=== PATIENT | female | born 1940 | race Caucasian/White ===

== ENCOUNTER 2022-12-24 08:54 | Outpatient (OUT) | payer MEDICARE, OTHER, SELFPAY ==
--- NOTE | 2022-12-24 09:01 | MM_ITS ---
Patient: NIMCO PRESTON Exam Date: 12/24/2022 : 1940 Gender:F Ordering : MRS. MARICHUY MICHEL . Admission #: [id number] Family : Order #: [id number] CLICK HERE TO VIEW EXAM RADIOLOGY REPORT PROCEDURE: MM TOMOSYNTHESIS SCREENING BI COMPARISON: MG MAMM SCREEN 3D JAMES CAD, 12/19/2021. MG MAMM SCREEN 3D JAMES CAD, 09/17/2020. INDICATIONS: Screening Calculator Name NCI Breast Cancer Risk Assessment Tool 5 Year Breast Cancer Risk 1.50% Lifetime Breast Cancer Risk 2.30% Personal Breast Cancer No Personal Ovarian Cancer No Treatments None Family Cancers Cousin-paternal with breast cancer at age 68; Father with colon cancer at age 67. LOCATION: [facility] BREAST COMPOSITION: Extremely dense, which lowers the sensitivity of mammography. FINDINGS: DIAGNOSTIC CATEGORY 2--BENIGN FINDING. NO CHANGE FROM COMPARISON. Scattered benign-appearing nodules are present. Scattered benign-appearing calcifications are present. Scattered benign-appearing lymph nodes are present. RIGHT BREAST: No significant suspicious finding. LEFT BREAST: No significant suspicious finding. RECOMMENDATIONS: ROUTINE MAMMOGRAM AND CLINICAL EVALUATION IN 12 MONTHS. PLEASE NOTE: A NORMAL MAMMOGRAM DOES NOT EXCLUDE THE POSSIBILITY OF BREAST CANCER. A CLINICALLY SUSPICIOUS PALPABLE LUMP SHOULD BE BIOPSIED. Dictated by: Oneil Condon MD on 12/24/2022 at 11:56 Approved by: Oneil Condon MD on 12/24/2022 at 11:57
--- NOTE | 2022-12-24 09:01 | XR_ITS ---
[address] [address] Patient Name: NIMCO PRESTON MRN: [id number] date: 1940 Sex: F Assigned Patient Location: [facility] Current Patient Location: [facility] Accession/Order Number: [id number] Exam Date: 12/24/2022 10:00 Report Date: 12/24/2022 12:31 At the request of: MARICHUY MICHEL Procedure: XR DEXA axial skeleton EXAM: XR DEXA axial skeleton HISTORY: Primary Ovarian Failure E28.39 COMPARISON: 04/27/2016, 04/17/2013, 04/10/2010 and 04/07/2007. TECHNIQUE: Routine DEXA lumbar spine and left hip. FINDINGS: L1-L4: 1. Bone mineral density 1.184 g/sq cm with a T score of 0.0 2. Percent change versus previous 8.6% (statistically significant change) Left femoral neck: 1. Bone mineral density 0.840 g/sq cm with a T score of -1.4 2. Percent change versus previous 7.5% (statistically significant change) Left hip total: 1. Bone mineral density 0.835 g/sq cm with a T score of -1.4 2. Percent change versus previous 3.0% (no statistically significant change) XR/XR DEXA axial skeleton IMPRESSION: Osteopenia Electronically authenticated by: KARINA PRECIADO Date: 12/24/2022 12:31
== END 2022-12-24 08:55 | disposition home or self-care (01) ==
LOC: MAMMO 08:55
PROVIDERS: PCP Nurse Practitioner; Visit Provider Nurse Practitioner
DX: E28.39 Other primary ovarian failure (principal); Z12.31 Encounter for screening mammogram for malignant neoplasm of breast; Z80.3 Family history of malignant neoplasm of breast; Z80.0 Family history of malignant neoplasm of digestive organs; M85.80 Other specified disorders of bone density and structure, unspecified site
CPT/HCPCS: 77063; 77067; 77080

== ENCOUNTER 2023-12-07 12:42 | Outpatient (OUT) | payer MEDICARE, OTHER, SELFPAY ==
--- NOTE | 2023-12-07 12:53 | XR_ITS ---
The [address] [address] Patient Name: NIMCO PRESTON MRN: [id number] date: 1940 Sex: F Assigned Patient Location: [place] Current Patient Location: [place] Accession/Order Number: [id number] Exam Date: 12/07/2023 13:18 Report Date: 12/07/2023 13:37 At the request of: MARIHCUY MICHEL Procedure: XR chest 2V EXAM: XR chest 2V HISTORY: chest pain, shortness of breath COMPARISON: 12/03/2021 TECHNIQUE: Upright PA and lateral chest x-ray FINDINGS: The heart is enlarged with mild prominence of the central pulmonary vasculature. Slight prominence of interstitial markings are seen throughout the lungs which appear chronic in nature. A calcified granuloma seen in the left mid lung laterally. No acute infiltrate, effusion or pneumothorax is identified. Degenerative changes are seen in the spine. XR/XR chest 2V IMPRESSION: Mild cardiac enlargement without overt cardiac decompensation. Mild chronic changes are seen throughout the lungs. There is no evidence of an acute infiltrate. The overall appearance has not changed significantly. Electronically authenticated by: KARINA BRYANT Date: 12/07/2023 13:37
--- NOTE | 2023-12-07 12:53 | US_ITS ---
[address] [address] Patient Name: NIMCO PRESTON MRN: [id number] date: 1940 Sex: F Assigned Patient Location: Current Patient Location: [place] Accession/Order Number: [id number] Exam Date: 12/07/2023 13:00 Report Date: 12/07/2023 14:06 At the request of: MARICHUY MICHEL Procedure: US carotid duplex BI DUPLEX ULTRASOUND EXAMINATION OF THE CAROTID ARTERIES. COMPARISON: None. HISTORY / INDICATIONS: Shortness of breath. Left-sided chest pain. TECHNIQUE: Bilateral common carotid arteries, extracranial internal and external carotid arteries are evaluated with london-scale imaging, color Doppler, and spectral analysis according to a standard protocol. ICA-CCA ratios are calculated with sales representative printing paper peak-systolic velocities and recorded. Vertebral arteries are evaluated in one segment to evaluate for patency and character of flow. Comparison with previous evaluation is performed when available. Unless otherwise specified, all velocities are measured in cm/sec. Carotid stenosis is reported according to validated velocity parameters, similar to NASCET criteria. FINDINGS: Right Carotid: No significant plaque was noted. Velocity measurements as follows: Internal Carotid Artery 63/14, 70/14, and 80/14. ICA to CCA ratio: 1.0. Left Carotid: No significant plaque was noted. Velocity measurements as follows: Internal Carotid Artery 65/13, 113/15, and 79/17. ICA to CCA ratio: 1.4. Antegrade flow was seen in both vertebral arteries. 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 CONCLUSION: 1. Less than 50% stenosis of the right ICA. 2. Less than 50% stenosis of the left ICA. 3. Vertebral arteries are patent and demonstrate antegrade flow. Electronically authenticated by: Cee PÉREZ Date: 12/07/2023 14:06
== END 2023-12-07 12:43 | disposition home or self-care (01) ==
LOC: US 12:43
PROVIDERS: PCP Nurse Practitioner; Visit Provider Nurse Practitioner
DX: R06.02 Shortness of breath (principal); R07.89 Other chest pain; R53.83 Other fatigue; M54.2 Cervicalgia; R42 Dizziness and giddiness
CPT/HCPCS: 71046; 93880

== ENCOUNTER 2023-12-15 19:00 | Emergency (ER) | payer MEDICARE, OTHER, SELFPAY ==
[2023-12-15 19:09] VITALS: BP 182/72; PULSE 77; TEMP 36.7; O2SAT 97; BMI 28.2
--- OUTSIDE RECORDS SUMMARY | 2023-12-15 19:09 | XMS_ITS | CCD ---
Author Organization [facility] Care Team Providers Care Hairspring Adjuster Name Role Phone TANO ., DR MAGO Oh Consulting Unavailable FREEDMAN ., DR MAGO Oh Attending Unavailable FREEDMAN ., DR MAGO Oh Admitting Unavailable FREEDMAN ., DR MAGO Oh Primary Care Unavailable JUAQUIN, DR BERNARD Lopez Consulting Unavailable FREEDMAN ., DR MAGO hO Admitting Unavailable FREEDMAN ., DR MAGO Oh Primary Care Unavailable FREEDMAN ., DR MAGO Oh Attending Unavailable ROZINA, DR ORVILLE Beck Admitting Unavailable ROZINA, DR ORVILLE Beck Consulting Unavailable FREEDMAN ., DR MAGO Oh Primary Care Unavailable ROZINA, DR ORVILLE Beck Attending Unavailable KENY LIZ Consulting Unavailable NILL ., DR NEWTON Attending Unavailable NILL ., DR NEWTON Admitting Unavailable NILL ., DR NEWTON Consulting Unavailable FREEDMAN ., DR MAGO Oh Primary Care Unavailable ALLAN LEVI Consulting Unavailable RONEY WATKINS Consulting Unavailable FREEDMAN ., DR MAGO Oh Primary Care Unavailable NILL ., DR NEWTON Attending Unavailable NILL ., DR NEWTON Admitting Unavailable NILL ., DR NEWTON Consulting Unavailable AGUBOSIM, AWAIS Consulting Unavailable MAMIE ÁLVAREZ Consulting Unavailable NILL ., DR NEWTON Admitting Unavailable NILL ., DR NEWTON Attending Unavailable FREEDMAN ., DR MAGO Oh Primary Care Unavailable FREEDMAN ., DR MAGO Oh Attending Unavailable FREEDMAN ., DR MAGO Oh Primary Care Unavailable FREEDMAN ., DR MAGO Oh Consulting Unavailable FREEDMAN ., DR MAGO Oh Admitting Unavailable FREEDMAN ., DR MAGO Oh Consulting Unavailable FREEDMAN ., DR MAGO Oh Attending Unavailable FREEDMAN ., DR MAGO Oh Primary Care Unavailable FREEDMAN ., DR MAOG hO Admitting Unavailable JUAQUIN, DR BERNARD Lopez Consulting Unavailable FREEDMAN ., DR MAGO Oh Consulting Unavailable FREEDMAN ., DR MAGO Oh Attending Unavailable FREEDMAN ., DR MAGO Oh Admitting Unavailable FREEDMAN ., DR MAGO Oh Primary Care Unavailable FREEDMAN ., DR MAGO Oh Consulting Unavailable FREEDMAN ., DR MAGO Oh Attending Unavailable FREEDMAN ., DR MAGO Oh Admitting Unavailable TANO ., DR MAGO Oh Primary Care Unavailable Linda, Sabina L Primary Care Physician Tano EDEN, Mago Self Primary Care Unavaildillon Bojorquez MD, Zheng Thompson Attending Rosa Isela Freedman MD, Mago Self Primary Care Unavaildillon Bojorquez MD, Zheng Thompson Attending Rosa Isela HANDY, CAPO H Attending Unavailable HANDY, CAPO H Attending Unavailable HANDY, CAPO H Attending Unavailable HANDY, CAPO H Attending Unavailable Linda, WOOD CREW SUPERVISOR Sabina L Attending Unavailable Linda, WOOD CREW SUPERVISOR Sabina L Attending Unavailable Linda, WOOD CREW SUPERVISOR Sabina L Attending Unavailable Linda, WOOD CREW SUPERVISOR Sabina L Admitting Unavailable Linda, WOOD CREW SUPERVISOR Sabina L Attending Unavailable Linda, WOOD CREW SUPERVISOR Sabina L Admitting Unavailable Linda, WOOD CREW SUPERVISOR Sabina L Attending Unavailable Linda, WOOD CREW SUPERVISOR Sabina L Attending Unavailable Linda, WOOD CREW SUPERVISOR Sabina L Attending Unavailable Linda, WOOD CREW SUPERVISOR Sabina L Attending Unavailable Linda, WOOD CREW SUPERVISOR Sabina L Attending Unavailable Linda, WOOD CREW SUPERVISOR Sabina L Attending Unavailable Linda, WOOD CREW SUPERVISOR Sabina L Attending Unavailable Linda, WOOD CREW SUPERVISOR Sabina L Attending Unavailable Linda, WOOD CREW SUPERVISOR Sabina L Attending Unavailable Linda, WOOD CREW SUPERVISOR Sabina L Attending Unavailable Allergies Allergy Classification Reported Allergen(s) Allergy Type Date of Onset Reaction(s) Facility (2 sources) Amitriptyline; Translations: [amitriptyline] Drug Allergy [facility] (1 source) Cephalexin Drug Allergy [facility] (2 sources) Amitriptyline; Translations: [amitriptyline] Drug Allergy Unknown (qualifier value) General Surgery [place] (4 sources) Cefuroxime; Translations: [cefuroxime] Drug Allergy Syncope and collapse (disorder), Itching (finding) [facility] (2 sources) No Known Medication Allergies; Translations: [No Known Medication Allergies] Propensity to adverse reactions to drug (disorder) [facility] Repository Medications Current Medications Medication Drug Class(es) Dates Sig (Normalized) Sig (Original) acetaminophen 325 mg / butalbital 50 mg / caffeine 40 mg oral tablet (1 source) Barbiturate, Central Nervous System Stimulant, Methylxanthine Start: 03-16-2023 take 1 tablet by mouth every four hours APAP/butalbital/c affeine 325 mg-50 mg-40 mg Tab 1 tab(s), Oral, q4hr Headache, 30 tab(s), Refill(s) 0, [facility] #[id number], 166, cm, 03/16/23 9:10:00 EST, Height/Length Dosing, 85.6, kg, 03/16/23 9:10:00 EST, Weight Dosing Start Date: 03/16/23 Status: Ordered Albuterol (2 sources) beta2-Adrenergic Agonist Start: 12-01-2022 albuterol NEB, q4hr, PRN Allergy symptoms, Refills(s) 0 Start Date: 12/01/22 Status: Ordered alendronic acid 70 mg oral tablet (2 sources) Bisphosphonate Start: 08-24-2023 alendronate 70 mg Tab 70 mg = 1 tab(s), Oral, q7day, # 12 tab(s), Refills(s) 0, Pharmacy: [facility]pharm[facility] #[id number], 166, cm, 08/24/23 8:56:00 EDT, Height/Length Dosing, 84, kg, 08/24/23 8:56:00 EDT, Weight Dosing Start Date: 08/24/23 Status: Ordered Start: 04-29-2020 take 1 tablet by eric th every week alendronate 70 mg Tab 70 mg = 1 tab(s), Oral, qWeek, Refills(s) 0, Other (see comment) Start Date: 04/29/20 Status: Ordered amoxicillin 500 mg oral capsule (1 source) Penicillin-class Antibacterial Start: 08-24-2023 amoxicillin 500 mg Cap See Instructions, TAKE 4 CAPSULES BY MOUTH 1/2 HOUR BEFORE PROCESURE AND 2 CAPSULES 4 HOURS AFTER, # 6 caplet(s), Refills(s) 1, Pharmacy: [facility] #[id number], 166, cm, 08/24/23 8:56:00 EDT, Height/Length Dosing, 84, kg, 08/24/23 8:56:00 EDT, Weight Dosing Start Date: 08/24/23 Status: Ordered calcium carbonate 1500 mg oral tablet (2 sources) Start: 04-29-2020 take 1 tablet by mouth once daily calcium (as carbonate) 600 mg oral tablet 600 mg = 1 tab(s), Oral, Daily, Prophylaxis Start Date: 04/29/20 Status: Ordered Celebrate Multivitamin oral capsule (2 sources) Start: 04-29-2020 take 1 capsule by mouth once daily Celebrate Multivitamin oral capsule 1 cap(s), Oral, Daily, Prophylaxis Start Date: 04/29/20 Status: Ordered colestipol hydrochloride 1000 mg oral tablet (2 sources) Bile Acid Sequestrant Start: 04-27-2023 take 1 tablet by mouth once daily Colestid 1 g Tab 1 gm = 1 tab(s), Oral, Daily, # 90 tab(s), Refills(s) 1, Pharmacy: [facility] #[id number], 166, cm, 03/16/23 9:10:00 EST, Height/Length Dosing, 85.6, kg, 03/16/23 9:10:00 EST, Weight Dosing Start Date: 04/27/23 Status: Ordered Start: 04-07-2021 take 1 tablet by [facility] once daily in the morning Colestid 1 g oral tablet 1 gm = 1 tab(s), Oral, qAM, Refills(s) 0 Start Date: 04/07/21 Status: Ordered hydroCHLOROthiazide 12.5 mg oral capsule (2 sources) Thiazide Diuretic Start: 02-26-2023 take 1 capsule by mouth once daily hydrochlorothiazide 12.5 mg Cap 12.5 mg = 1 cap(s), Oral, Daily, # 90 cap(s), Refills(s) 3, Pharmacy: [facility] #[id number], 166, cm, 02/02/23 8:45:00 EDT, Height/Length Dosing, 85, kg, 02/02/23 8:45:00 EDT, Weight Dosing Start Date: 02/26/23 Status: Ordered Start: 02-02-2023 take 1 capsule by [facility] once daily hydrochlorothiazide 12.5 mg Cap 12.5 mg = 1 cap(s), Oral, Daily, # 30 cap(s), Refills(s) 2, Pharmacy: [facility] #[id number], 166, cm, 02/02/23 8:45:00 EDT, Height/Length Dosing, 85, kg, 02/02/23 8:45:00 EDT, Weight Dosing Start Date: 02/02/23 Status: Ordered losartan potassium 25 mg oral tablet (2 sources) Angiotensin 2 Receptor Peter Start: 05-25-2023 take 1 tablet by mouth twice daily losartan 25 mg Tab 25 mg = 1 tab(s), Oral, BID, # 180 tab(s), Refills(s) 3, Pharmacy: [facility] #[id number], 166, cm, 03/16/23 9:10:00 EST, Height/Length Dosing, 85.6, kg, 03/16/23 9:10:00 EST, Weight Dosing Start Date: 05/25/23 Status: Ordered Start: 02-02-2023 End: 05-03-2023 take 1 tablet by mouth twice daily losartan 25 mg Tab 25 mg = 1 tab(s), Oral, BID, X 30 day(s), # 60 tab(s), Refills(s) 2, Pharmacy: [facility] #[id number], 166, cm, 02/02/23 8:45:00 EDT, Height/Length Dosing, 85, kg, 02/02/23 8:45:00 EDT, Weight Dosing Start Date: 02/02/23 Stop Date: 05/03/23 Status: Ordered [facility] Medication (1 source) Start: 12-01-2022 Misc Medicatio n Daily Start Date: 12/01/22 Status: Ordered Nature's Bounty Red Krill Oil (2 sources) Start: 12-01-2022 take 500 mg by mouth once daily Nature's B[employer] Red Krill Oil 500 mg, Oral, Daily, Refill(s) 0 Start Date: 12/01/22 Status: Ordered Vitamin D3 (2 sources) Start: 04-29-2020 take 50 ug by mouth once daily Vitamin D3 50 mcg, Oral, Daily, Prophylaxis Start Date: 04/29/20 Status: Ordered Completed/Discontinued Medications Medication Drug Class(es) Dates Sig (Normalized) Sig (Original) microencapsulated potassium chloride 20 meq extended release oral tablet (3 sources) Start: 02-02-2023 take 1 tablet by mouth once daily Klor-Con M20 oral tablet, extended release 20 mEq = 1 tab(s), Oral, Daily, # 90 tab(s), Refills(s) 1, Pharmacy: [facility] #[id number], 166, cm, 08/24/23 8:56:00 EDT, Height/Length Dosing, 84, kg, 08/24/23 8:56:00 EDT, Weight Dosing Start Date: 08/24/23 Status: Ordered Problems Active Problems Problem Classification Problem Date Documented Da te Episodic/Chronic Asthma (3 sources) Unspecified asthma, uncomplicated; Translations: [Asthma] Onset: 09-30-2021 04-07-2021 Chronic Conditions associated with dizziness or vertigo (4 sources) Benign paroxysmal vertigo, unspecified ear; Translations: [BENIGN PAROXYSMAL VERTIGO UNS EAR] Onset: 06-05-2022 Episodic Diverticulosis and diverticulitis (3 sources) Diverticulosis of large intestine without perforation or abscess without bleeding; Translations: [Diverticular disease] Onset: 09-30-2021 04-07-2021 Chronic Esophageal disorders (3 sources) Gastro-esophageal reflux disease without esophagitis; Translations: [Gastroesophageal reflux disease] Onset: 09-30-2021 04-07-2021 Chronic Essential hypertension (3 sources) Essential (primary) hypertension; Translations: [Hypertensive disorder] Onset: 12-15-2021 04-07-2021 Chronic Headache; including migraine (2 sources) Migraine 04-07-2021 Chronic Malaise and fatigue (6 sources) Other fatigue; Translations: [Fatigue] Onset: 12-12-2021 Episodic Nutritional deficiencies (3 sources) Vitamin D deficiency, unspecified; Translations: [Vitamin D deficiency] Onset: 09-30-2021 04-07-2021 Chronic Osteoporosis (3 sources) Age-related osteoporosis without current pathological fracture; Translations: [Osteoporosis] Onset: 09-30-2021 04-07-2021 Chronic Other and unspecified benign neoplasm (2 sources) History of polyp of colon 04-08-2021 Episodic Other connective tissue disease (1 source) Presence of right artificial knee joint; Translations: [PRESENCE RT ARTIFICIAL KNEE JOINT] Onset: 09-30-2021 Chronic Other connective tissue disease (1 source) Cramp in lower limb 08-24-2023 Episodic Other ear and sense organ disorders (1 source) Impacted cerumen 03-16-2023 Episodic Other gastrointestinal disorders (1 source) Irritable bowel syndrome without diarrhea; Translations: [IRRITABLE BOWEL SYND W/O DIARRHEA] Onset: 08-21-2021 Chronic Other gastrointestinal disorders (2 sources) Alteration in bowel elimination 07-01-2021 Episodic Other nutritional; endocrine; and metabolic disorders (2 sources) Body mass index 30+ - obesity 07-01-2021 Chronic Other upper respiratory disease (2 sources) Seasonal allergic rhinitis 04-07-2021 Chronic Unclassified (3 sources) CONTACT W/AND (SUSP) EXPOS COVID-19; Translations: [CONTACT W/AND (SUSP) EXPOS COVID-19] Onset: 12-03-2021 Urinary tract infections (2 sources) Chronic urinary tract infection 04-07-2021 Episodic Past or Other Problems Problem Classification Problem Date Documented Da te Episodic/Chronic Anal and rectal conditions (1 source) Rectal polyp; Translations: [RECTAL POLYP] Onset: 09-30-2021 Episodic E Codes: Adverse effects of medical drugs (1 source) Adverse effect of cephalosporins and other beta-lactam antibiotics, initial encounter; Translations: [ADVERS EFF CEPHALOSPOR OTH KYLE INIT] Onset: 12-05-2021 Episodic Genitourinary symptoms and ill-defined conditions (1 source) Personal history of urinary (tract) infections; Translations: [PERS HX URINARY TRACT INFECTIONS] Onset: 09-30-2021 Episodic Other aftercare (1 source) Other meterman (current) drug therapy; Translations: [OTH FOOTBALL PAD REPAIRER CURRENT DRUG THERAPY] Onset: 12-05-2021 Episodic Other and unspecified benign neoplasm (4 sources) Personal history of colonic polyps; Translations: [PERSONAL HISTORY OF COLONIC POLYPS] Onset: 09-24-2021 Episodic Other connective tissue disease (4 sources) Pain in left lower leg; Translations: [PAIN IN LEFT LOWER LEG] Onset: 10-17-2021 Episodic Other gastrointestinal disorders (4 sources) Change in bowel habit; Translations: [CHANGE IN BOWEL HABIT] Onset: 08-20-2021 Episodic Other inflammatory condition of skin (1 source) Pruritus, unspecified; Translations: [PRURITUS UNSPECIFIED] Onset: 12-05-2021 Episodic Other lower respiratory disease (4 sources) Shortness of breath; Translations: [SHORTNESS OF BREATH] Onset: 12-24-2021 Episodic Other screening for suspected conditions (not mental disorders or infectious disease) (4 sources) Encounter for screening mammogram for malignant neoplasm of breast; Translations: [ENC SCR MAMMO MALIG NEOPLASM BREAST] Onset: 12-19-2021 Episodic Other skin disorders (1 source) Localized swelling, mass and lump, left lower limb; Translations: [LOC SWELL MASS LUMP LT LOWER LIMB] Onset: 10-24-2021 Episodic Residual codes; unclassified (1 source) Family history of malignant neoplasm of digestive organs; Translations: [FAM HX MALIG NEOPLASM DIGESTIV ORGN] Onset: 12-23-2021 Episodic Residual codes; unclassified (1 source) Family history of malignant neoplasm of breast; Translations: [FAMILY HX MALIG NEOPLASM OF BREAST] Onset: 12-23-2021 Episodic Residual codes; unclassified (1 source) Acquired absence of other specified parts of digestive tract; Translations: [ACQ ABSENCE OTH PART DIGESTV TRACT] Onset: 09-30-2021 Episodic Unclassified (1 source) CONTACT W/AND (SUSP) EXPOS COVID-19; Translations: [CONTACT W/AND (SUSP) EXPOS COVID-19] Onset: 12-02-2021 Results Test Name Value Interpretation Reference Range Facil ity Ambulatory Visit Summaryon 0 12-03-2023 Ambulatory Visit Summary Ambulatory Visit Summary NORI PRESTON :1940 Visit Date:12/02/2023 Ambulatory Visit Instructions Your Diagnosis Medicare annual wellness visit, subsequent HTN (hypertension) Asthma Migraines Osteoporosis Screening mammogram for breast cancer Obesity due to excess calories Your Care Team Attending Physician - Sabina Ruth Primary Care Physician - Sabina Ruth This Is Your Medications List APAP/butalbital/caff eine (APAP/butalbital/caf feine 325 mg-50 mg-40 mg Tab) Non-Formulary Medication (Probiotic) albuterol alendronate (alendronate 70 mg Tab) amoxicillin (amoxicillin 500 mg Cap) calcium carbonate (calcium (as carbonate) 600 mg oral tablet) cholecalciferol (Vitamin D3) colestipol (colestipol 1 g Tab) hydrochlorothiazide (hydrochlorothiazide 12.5 mg Cap) losartan (losartan 25 mg Tab) multivitamin with minerals (Celebrate Multivitamin oral capsule) Procedures Performed Cataract extraction and insertion of intraocular lens (05/14/2020), Cataract extraction and insertion of intraocular lens (04/30/2020), Colonoscopy (11/25/2016), Colonoscopy (10/11/2013), Colonoscopy (09/28/2012), Appendectomy, Arthroplasty of knee, Cervical polypectomy, Cholecystectomy, Cystoscopy, Urethral dilatation. Discharge Vitals Heart Rate (Peripheral) 60 Blood Pressure 130/70 Height 166 cm Height 65 in Weight 82.8 kg Weight 182.16 lb BMI 30.05 What to do next Scheduled Follow-Up Appointments Wednesday 9:00 AM EDT With: Sabina Ruth Where: [address] [address] 2023 10:00 AM EST With: Sabina Ruth Where: [address] [address]- [address]24 11:00 AM EDT With: Where: [address] [id number]- Medications What How Much When Why Instructions Unchanged albuterol Nebulized inhalation (aerosol) Every 4 hours as needed for Allergy symptoms Unchanged alendronate (alendronate 70 mg Tab) See instructions TAKE 1 TABLET ONCE EVERY 7 DAYS Unchanged amoxicillin (amoxicillin 500 mg Cap) See instructions TAKE 4 CAPSULES BY MOUTH 1/ 2 HOUR BEFORE PROCESURE AND 2 CAPSULES 4 HOURS AFTER Unchanged APAP/ butalbital/ caffeine (APAP/ butalbital/ caffeine 325 mg-50 mg-40 mg Tab) 1 Tablets By Mouth Every 4 hours as needed for Headache Unchanged calcium carbonate (calcium (as carbonate) 600 mg oral tablet) 1 Tablets By Mouth Every day Unchanged cholecalciferol (Vitamin D3) 50 Microgram By Mouth Every day Unchanged colestipol (colestipol 1 g Tab) See instructions TAKE 1 TABLET BY MOUTH EVERY DAY Unchanged hydrochlorothiazide (hydrochlorothiazide 12.5 mg Cap) 1 Capsules By Mouth Every day BMI 30.0-30.9,adult Non-smoker Unchanged losartan (losartan 25 mg Tab) 1 Tablets By Mouth 2 times a day BMI 31.0-31.9,adult Non-smoker Hypertension Unchanged multivitamin with minerals (Celebrate Multivitamin oral capsule) 1 Capsules By Mouth Every day Unchanged Non-Formulary Medication (Probiotic) 1 tab By Mouth Every day Allergies cefuroxime (Syncope and collapse, Itch) amitriptyline (Unknown) Problems Ongoing - Any problem that you are currently receiving treatment for. Allergic rhinitis, seasonal Asthma BMI 30.0-30.9,adult Cerumen impaction Change in bowel habits Chronic UTI Diverticulosis Fatigue GERD (gastroesophageal reflux disease) HTN (hypertension) Leg cramps Migraines Osteoporosis Personal history of colonic polyps Vitamin D deficiency Patient Survey You may receive a survey via text or e-mail asking about your office visit. Please share your experience with us by completing your survey. We appreciate your feedback and thank you for choosing us for your care. Education Materials BMI for Adults What is BMI? Body mass index (BMI) is a number that is calculated from a person's weight and height. BMI can help estimate how much of a person's weight is composed of fat. BMI does not measure body fat directly. Rather, it is an alternative to procedures that directly measure body fat, which can be difficult and expensive. BMI can help identify people who may be at higher risk for certain medical problems. What are BMI measurements used for? BMI is used as a screening tool to identify possible weight problems. It helps determine whether a person is obese, overweight, a healthy weight, or underweight. BMI is useful for: ? Identifying a weight problem that may be related to a medical condition or may increase the risk for medical problems. ? Promoting changes, such as changes in diet and exercise, to help reach a healthy weight. BMI screening can be repeated to see if these changes are working. How is BMI calculated? (more content not included)... [facility] Ambulatory Visit Summary Ambulatory Visit Summary NORI PRESTON :1940 Visit Date:12/03/2023 Ambulatory Visit Instructions Your Diagnosis Chest pain Shortness of breath Non-smoker BMI 29.0-29.9,adult Overweight (BMI 25.0-29.9) Your Care Team Attending Physician - Sabina Ruth Primary Care Physician - Sabina Ruth This Is Your Medications List APAP/butalbital/caff eine (APAP/butalbital/caf feine 325 mg-50 mg-40 mg Tab) Non-Formulary Medication (Probiotic) albuterol alendronate (alendronate 70 mg Tab) amoxicillin (amoxicillin 500 mg Cap) calcium carbonate (calcium (as carbonate) 600 mg oral tablet) cholecalciferol (Vitamin D3) colestipol (colestipol 1 g Tab) hydrochlorothiazide (hydrochlorothiazide 12.5 mg Cap) losartan (losartan 25 mg Tab) multivitamin with minerals (Celebrate Multivitamin oral capsule) potassium chloride (Klor-Con M20 oral tablet, extended release) Procedures Performed Cataract extraction and insertion of intraocular lens (05/14/2020), Cataract extraction and insertion of intraocular lens (04/30/2020), Colonoscopy (11/25/2016), Colonoscopy (10/11/2013), Colonoscopy (09/28/2012), Appendectomy, Arthroplasty of knee, Cervical polypectomy, Cholecystectomy, Cystoscopy, Urethral dilatation. Discharge Vitals Temperature (Oral) 36.8 ?C Heart Rate (Peripheral) 67 Respiratory Rate 16 Blood Pressure 132/76 Height 167.5 cm Height 66 in Weight 84 kg Weight 184.8 lb BMI 29.94 What to do next Scheduled Follow-Up Appointments Wednesday 10:00 AM EDT With: Sabina Ruth Where: [address] [address]- [address]23 10:00 AM EST With: Sabina Ruth Where: [address] [id number]- 2024 11:00 AM EDT With: Where: [address] [address]- Medications What How Much When Why Instructions Unchanged albuterol Nebulized inhalation (aerosol) Every 4 hours as needed for Allergy symptoms Unchanged alendronate (alendronate 70 mg Tab) See instructions TAKE 1 TABLET ONCE EVERY 7 DAYS Unchanged amoxicillin (amoxicillin 500 mg Cap) See instructions TAKE 4 CAPSULES BY MOUTH 1/ 2 HOUR BEFORE PROCESURE AND 2 CAPSULES 4 HOURS AFTER Unchanged APAP/ butalbital/ caffeine (APAP/ butalbital/ caffeine 325 mg-50 mg-40 mg Tab) 1 Tablets By Mouth Every 4 hours as needed for Headache Unchanged calcium carbonate (calcium (as carbonate) 600 mg oral tablet) 1 Tablets By Mouth Every day Unchanged cholecalciferol (Vitamin D3) 50 Microgram By Mouth Every day Unchanged colestipol (colestipol 1 g Tab) See instructions TAKE 1 TABLET BY MOUTH EVERY DAY Unchanged hydrochlorothiazide (hydrochlorothiazide 12.5 mg Cap) 1 Capsules By Mouth Every day BMI 30.0-30.9,adult Non-smoker Unchanged losartan (losartan 25 mg Tab) 1 Tablets By Mouth 2 times a day BMI 31.0-31.9,adult Non-smoker Hypertension Unchanged multivitamin with minerals (Celebrate Multivitamin oral capsule) 1 Capsules By Mouth Every day Unchanged Non-Formulary Medication (Probiotic) 1 tab By Mouth Every day Unchanged potassium chloride (Klor-Con M20 oral tablet, extended release) TAKE 1 TABLET BY MOUTH EVERY DAY Allergies cefuroxime (Syncope and collapse, Itch) amitriptyline (Unknown) Problems Ongoing - Any problem that you are currently receiving treatment for. Allergic rhinitis, seasonal Asthma BMI 29.0-29.9,adult BMI 30.0-30.9,adult Cerumen impaction Change in bowel habits Chest pain Chronic UTI Diverticulosis Fatigue GERD (gastroesophageal reflux disease) HTN (hypertension) Leg cramps Migraines Osteoporosis Overweight (BMI 25.0-29.9) Personal history of colonic polyps Shortness of breath Vitamin D deficiency Patient Survey You may receive a survey via text or e-mail asking about your office visit. Please share your experience with us by completing your survey. We appreciate your feedback and thank you for choosing us for your care. Normal Goel [facility] Family Medicine Office/Clini c Noteon 12-03-2023 Family Medicine Office/Clinic Note Family Medicine Office/Clinic Note Chief Complaint Subsequent Medicare Wellness Visit Review of Systems PHQ Score Initial Depression Screen Score: 0 SCORE Physical Exam Vitals & Measurements HR: 60(Peripheral) BP: 130/70 SpO2: 97% HT: 166 cm HT: 65 in WT: 82.8 kg WT: 182.16 lb BMI: 30.05 Assessment/Plan 1. Medicare annual wellness visit, subsequent (Z00.00: Encounter for general adult medical examination without abnormal findings) The patient was given a customized and personalized print out of all the current AHRQ USPSTF?s recommendations for preventative services and all current CDC recommended immunizations, relevant risk recommendations and the following patient brochures were given. Reviewed Medicare Prevention Services checklist. CDC-Falls Prevention and home safety screening reviewed. Patient denies any falls in last 12 months, voices no worry about falling. Exhibits no problems with sitting, standing or ambulation. Patient aware with keeping walk way area free of clutter to prevent tripping and/or falling. [place] Advance Directives reviewed. Documents are scanned into chart. Patient denies any problems with ADL?s and Instrumental ADL?s. Cognitive screening completed with memory and clock face drawing. No deficits noted. Patient recited 3/3 memory words without difficulty. Immunization record reviewed, discussed Shingrix vaccine with educational handout and availability.2 COVID vaccines have been administered, with 3 Boosters received. Allergies and medications reviewed and up to date. No concerns with taking medication as prescribed. Reviewed OTC medications, medication list up to date. Blood tests were reviewed: Discussed what tests need to be updated.Labs were ordered, will have completed prior to next PCP visit. Labs to be completed with [facility]. No concerns with bowel/ bladder. Colonoscopy last completed 09/24/2021, repeat 5 years. Reviewed pain symptoms : Patient denies any pain at today's visit. Patient admits to having some pain on and off over the last month in the left collar bone area. Patient reports the pain is interment. An acute appointment was made with pcp for 12/03/2023. Reviewed all outside providers that patient follows. Last visit summary notes available in chart and/or have been requested. Patient declines any signs or symptoms of depression at this time. 8 minutes spent with screening and documentation. PHQ2 screening score 0. PHQ9 3. Patient drinks alcohol monthly or less, 1-2 drinks, denies concerns. 8 minutes spent with screening and documentation. Audit score 1. Follow up scheduled with PCP, 02/24/2024 for regular follow up 12/03/2023 acute visit for pain. AWV has been scheduled, 12/07/2024. Discussed Chronic Care Management with patient. Patient declines referral. 2. HTN (hypertension) (I10: Essential (primary) hypertension) Patient is taking losartan daily as directed. Does monitor BP pressure at home. HTN stoplight reviewed with BP goal to be <140/90. Reviewed different factors that can alter blood pressure readings. Education handout provided with s/s to monitor for and report to provider. Patient is encouraged to increase portions of fruit, vegetables, fiber and increase exercise as much as tolerable. Reviewed importance with monitoring foods high in salt content and encouraged to limit intake, if unsure encouraged to discuss with their PCP. Encouraged to eat more chicken, fish and lean white meats and limits red meats in diet. Discussed importance with keeping BP under good control to reduce CVA risk factors. Will continue to f/u with PCP during office visits and as needed. 3. Asthma (J45.909: Unspecified asthma, uncomplicated) Patient uses albuterol for nebulizer as needed. Patient reports not having to use nebulizer since February 2023. Patient follows up with pcp as directed and as needed. 4. Migraines (G43.909: Migraine, unspecified, not intractable, without status migrainosus) Patient takes APAP/butalbital/caff eine as needed for migraines. Patient admits having 1 migraine in a year. Patient follows up with pcp as directed and as needed. 5. Osteoporosis (M81.0: Age-related osteoporosis without current pathological fracture) Patient is compliant with taking Vitamin D3. Denies any bone pain or discomfort. Patient has no reports of fractures. Reviewed recommended bone mineral density testing for women who are 65 years of age or older. Patient has routine DEXA scans, last was 09/24/21. Next DEXA will be do 09/2026. Educational handout for Bone Health reviewed and provided to the patient during today's Medicare Wellness visit. Encouraged bone healthy diet, eating a well-balanced diet with plenty of Calcium and Vitamin D will help to protect your bones. Daily weight-bearing physical activity can help build strong bones, improve bone amounts, and decrease the risk of further bone decline. 6. Screening mammogram for breast cancer (Z12.31: Encounter for screening mammogram for malignant neoplasm of jovanni (more content not included)... Normal [facility] Comment on above: Result Comment: Elec tronically Signed By: Sabina Ruth\.br\Date and Time Signed: 12/03/23 10:21 EDT\.br\Electronically Co-Signed By: Renu Yang\.br\Date and Time Co-Signed: 12/03/23 08:31 EDT\.br\Electronically Co-Signed By: Renu Yangbr\Date and Time Co-Signed: 12/03/23 08:33 EDT Family Medicine Office/Clinic Note Family Medicine Office/Clinic Note Chief Complaint Collar Bone Pain HPI Staff Nori is an 83 year old female presenting for acute visit Acute: pain left collarbone area Pain characteristics: Pain location: Lt side of collar bone, radiates to neck Intensity:4/10 Onset: 4-6wks. Intermittent, getting worse. Medication used: Takes Ibuprofen for another reason, does not help w/collar pain. Believed it was muscular related, due to it starting after pulling weeds. History of Present Illness pt c/o left sided chest pain that radiates up her left neck, shortness of breath on exertion and fatigue Review of Systems PHQ Score Initial Depression Screen Score: 0 SCORE Physical Exam Vitals & Measurements T: 36.8 ?C(Oral) HR: 67(Peripheral) RR: 16 BP: 132/76 SpO2: 97% HT: 66 in HT: 167.5 cm WT: 84 kg WT: 184.8 lb BMI: 29.94 General: alert, no acute distress ENMT: oral mucosa moist, no pharyngeal erythema or exudate Cardiovascular: regular rate and rhythm, normal peripheral perfusion, no bruit Respiratory: Lungs CTA, respirations non labored Extremities: no deformity, no trauma Neurological: oriented x 4, LOC appropriate for age, CN II-XII intact, motor strength equal & normal bilaterally, speech normal Assessment/Plan 1. Chest pain (R07.9: Chest pain, unspecified) EKG performed in office today, Sinus rhythm with occasional supraventricular premature complexes, left axis deviation, non specific T wave abnormality. pt is requesting referral to go to Dr. Rajput in [place], this is who her sees. patient originally thought she just pulled a muscle in her chest when pulling weeds. but with her having SOB and fatigue I feel she needs further work up by cardiology. Ordered: ECG 12 Lead Adult [facility] External Ambulatory Referral 2. Shortness of breath (R06.02: Shortness of breath) pt gets very short of breath on any exertion Ordered: ECG 12 Lead Adult [facility] External Ambulatory Referral 3. Fatigue (R53.83: Other fatigue) EKG, carotid artery u/s and chest x ray ordered Ordered: [facility] External Ambulatory Referral 4. Non-smoker (Z78.9: Other specified health status) continue not smoking Ordered: potassium chloride, 20 mEq = 1 tab(s), Oral, Daily, # 30 tab(s), Refills(s) 6, Pharmacy: [id number], 166, cm, 02/02/23 8:45:00 EDT, Height/Length Dosing, 85, kg, 02/02/23 8:45:00 EDT, Weight Dosing Body Mass Index (BMI) documented 3008F Current tobacco non-user 1036F Depression Screening Negative 3352F Discharge medications reconciled with current medications in outpatient record 1111F ECG 12 Lead Adult [facility] External Ambulatory Referral Medication list documented in medical record 1159F Patient screen for fall risk: no falls in last year or 1 fall with no injury in last year 1101F Review of all meds by a prescribing practitioner or clinical pharmacist documented in EHR 1160F 5. BMI 29.0-29.9,adult (Z68.29: Body mass index [BMI] 29.0-29.9, adult) BMI education given Ordered: ECG 12 Lead Adult [facility] Ambulatory Referral 6. Overweight (BMI 25.0-29.9) (E66.3: Overweight) see above Ordered: ECG 12 Lead Adult 7. Right hip pain (M25.551: Pain in right hip) pt had injection in right hip a few years ago and was pain free until a couple weeks ago. 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 if hip continues to be a problem we will order x ray and pain management for injection Orders: potassium chloride, 20 mEq = 1 tab(s), Oral, Daily, # 90 tab(s), Refills(s) 1, [facility]acy: [id number], 166, cm, 08/24/23 8:56:00 EDT, Height/Length Dosing, 84, kg, 08/24/23 8:56:00 EDT, Weight Dosing 1126F Pain severity quantified; no pain present Advance care plan or similar legal document present in the medical record 1157F Annual alcohol misuse screening, 15 min G0442 Annual Depression Screening 15 min G0444 Body Mass Index (BMI) documented 3008F Colorectal CA screening results documented and reviewed 3017F Current smokeless tobacco user 1035F Depression Screening Negative 3352F Functional status assessed 1170F Influenza immunization status assessed 1030F Medicare Subsequent Visit G0439 Medication list documented in medical record 1159F Most recent diastolic blood pressure <80 mm Hg 3078F Patient screen for fall risk: no falls in last year or 1 fall with no injury in last year 1101F Pneumococcus immunization status assessed 1022F Review of all meds by a prescribing practitioner or clinical pharmacist documented in EHR 1160F Screening mammography documented and reviewed 3014F Systolic BP <130 mm Hg (Most Recent) 3074F Follow-up No qualifying data available Problem List/Past Medical History Ongoing Allergic rhinitis, seasonal Asthma BMI 29.0-29.9,adult BMI 30.0-30.9,adult Cerumen impaction Change in bowel habits Chest pain Chronic UTI Diverticulosis Fatigue GERD (gastroesophageal reflux disease) HTN (hypertension) Leg cramps Migraines O (more content not included)... Normal [facility] Comment on above: Result Comment: Elec tronically Signed By: Sabina Ruth\.br\Date and Time Signed: 12/03/23 09:56 EDT Ambulatory Visit Summaryon 0 08-24-2023 Ambulatory Visit Summary NORI PRESTON :1940 Visit Date:08/24/2023 Ambulatory Visit Instructions Your Diagnosis Fatigue BMI 30.0-30.9,adult Non-smoker Leg cramps Your Care Team Attending Physician - Sabina Ruth Primary Care Physician - Sabina Ruth This Is Your Medications List APAP/butalbital/caff eine (APAP/butalbital/caf feine 325 mg-50 mg-40 mg Tab) albuterol alendronate (alendronate 70 mg Tab) calcium carbonate (calcium (as carbonate) 600 mg oral tablet) cholecalciferol (Vitamin D3) colestipol (Colestid 1 g Tab) hydrochlorothiazide (hydrochlorothiazide 12.5 mg Cap) losartan (losartan 25 mg Tab) multivitamin with minerals (Celebrate Multivitamin oral capsule) omega-3 polyunsaturated fatty acids (Nature's Bounty Red Krill Oil) potassium chloride (Klor-Con M20 oral tablet, extended release) Procedures Performed Cataract extraction and insertion of intraocular lens (05/14/2020), Cataract extraction and insertion of intraocular lens (04/30/2020), Colonoscopy (11/25/2016), Colonoscopy (10/11/2013), Colonoscopy (09/28/2012), Appendectomy, Arthroplasty of knee, Cervical polypectomy, Cholecystectomy, Cystoscopy, Urethral dilatation. Discharge Vitals Heart Rate (Peripheral) 72 Respiratory Rate 18 Blood Pressure 140/68 Height 166.0 cm Height 65 in Weight 84.00 kg Weight 184.8 lb BMI 30.48 What to do next Scheduled Follow-Up Appointments 2023 1:00 PM EDT With: Where: [place] [id number]- \.br\ Medications\.br\ What How Much When Why Instructions\.br\ Unchanged albuterol Nebulized inhalation (aerosol) Every 4 hours as needed for Allergy symptoms\.br\ Unchanged alendronate (alendronate 70 mg Tab) 1 Tablets By Mouth Every 7 days\.br\ Unchanged APAP/ butalbital/ caffeine (APAP/ butalbital/ caffeine 325 mg-50 mg-40 mg Tab) 1 Tablets By Mouth Every 4 hours as needed for Headache\.br\ Unchanged calcium carbonate (calcium (as carbonate) 600 mg oral tablet) 1 Tablets By Mouth Every day\.br\ Unchanged cholecalciferol (Vitamin D3) 50 Microgram By Mouth Every day\.br\ Unchanged colestipol (Colestid 1 g Tab) 1 Tablets By Mouth Every day\.br\ Unchanged hydrochlorothiazide (hydrochlorothiazide 12.5 mg Cap) 1 Capsules By Mouth Every day BMI 30.0-30.9,adult Non-smoker\.br\ Unchanged losartan (losartan 25 mg Tab) 1 Tablets By Mouth 2 times a day BMI 31.0-31.9,adult Non-smoker Hypertension\.br\ Unchanged multivitamin with minerals (Celebrate Multivitamin oral capsule) 1 Capsules By Mouth Every day\.br\ Unchanged omega-3 polyunsaturated fatty acids (Nature's Bounty Red Krill Oil) 500 Milligram By Mouth Every day\.br\ Unchanged potassium chloride (Klor-Con M20 oral tablet, extended release) 1 Tablets By Mouth Every day BMI 30.0-30.9,adult Non-smoker\.br\ Allergies\.br\ cefuroxime (Syncope and collapse, Itch)\.br\ amitriptyline (Unknown)\.br\ Problems\.br\ Ongoing - Any problem that you are currently receiving treatment for.\.br\ Allergic rhinitis, seasonal\.br\ Asthma\.br\ BMI 30.0-30.9,adult\.br\ Cerumen impaction\.br\ Change in bowel habits\.br\ Chronic UTI\.br\ Diverticulosis\.br\ Fatigue\.br\ GERD (gastroesophageal reflux disease)\.br\ HTN (hypertension)\.br\ Leg cramps\.br\ Migraines\.br\ Osteoporosis\.br\ Personal history of colonic polyps\.br\ Vitamin D deficiency\.br\ Patient Survey\.br\ You may receive a survey via text or e-mail asking about your office visit. Please share your experience with us by completing your survey. We appreciate your feedback and thank you for choosing us for your care.\.br\ \.br\ [facility] BMPon 08-24-2023 Anion gap [Moles/Vol] 10 mmol/L Normal 6-16 [facility] Comment on above: Performed By: #### 5 [id number] ####[facility] [address] [place] [address] Calcium [Mass/Vol] 9.4 mg/dL Normal 8.9-11.1 [facility] Comment on above: Performed By: #### 5 [id number], [id number] ####[facility] [address] [place] [address] Chloride [Moles/Vol] 104 mmol/L Normal 101-111 [facility] Comment on above: Performed By: #### 5 [id number], [id number], [id number] ####[facility] [address] [place] [address] CO2 [Moles/Vol] 30 mmol/L Normal 21-31 [facility] Comment on above: Performed By: #### 5 [id number], [id number], [id number], [id number] ####[facility] [address] [place] [address] Creatinine [Mass/Vol] 0.7 mg/dL Normal 0.5-1.3 [facility] Comment on above: Performed By: #### 5 [id number], [id number], [id number] ####[facility] [address] [place] [address] Glucose [Mass/Vol] 79 mg/dL Normal 55-199 [facility] Comment on above: Performed By: #### 5 [id number], [id number], [id number], [id number] ####[facility] [address] [place] [address] Potassium [Moles/Vol] 4.3 mmol/L Normal 3.5-5.3 [facility] Comment on above: Performed By: #### 5 [id number], [id number], [id number], [id number] ####[facility] [address] [place] [address] Sodium [Moles/Vol] 140 mmol/L Normal 135-145 [facility] Comment on above: Performed By: #### 5 [id number], [id number], [id number], [id number] ####[facility] [address] [place] [address] Urea nitrogen [Mass/Vol] 19 mg/dL Normal 5-21 [facility] Comment on above: Performed By: #### 5 [id number], [id number], [id number], [id number] ####[facility] [address] [place] [address] Urea nitrogen/Creatinine [Mass ratio] 27 No Units High 10-20 [facility] Comment on above: Performed By: #### 5 [id number], [id number], [id number] ####[facility] [address] [place] [address] CHEMISTRYOrdered By: SYSTEM SYSTEM on 08-24-2023 25-hydroxyvitamin D3 [Mass/Vol] 53.7 ng/mL Normal 30.0 - 100.0 ng/mL Remisol Chem Anion gap [Moles/Vol] 10 mmol/L Normal 6 - 16 mEq/L Remisol [facility] Calcium [Mass/Vol] 9.4 mg/dL Normal 8.9 - 11.1 mg/dL Rem[facility] Chloride [Moles/Vol] 104 mmol/L Normal 101 - 111 mmol/L Remisol [facility] CO2 [Moles/Vol] 30 mmol/L Normal 21 - 31 mmol/L Remis ol Chem Creatinine [Mass/Vol] 0.7 mg/dL Normal 0.5 - 1.3 mg/dL Remisol Chem eGFR 87 mL/min/1.73 m2 Normal >=59mL/min/1.73 m2 Remisol Chem Glucose [Mass/Vol] 79 mg/dL Normal 55 - 199 mg/dL Re misol Chem Iron [Mass/Vol] 63 ug/dL Normal 35 - 153 mcg/dL [facility] Potassium [Moles/Vol] 4.3 mmol/L Normal 3.5 - 5.3 mmol/L Remisol Chem Sodium [Moles/Vol] 140 mmol/L Normal 135 - 145 mmol/L Remisol Chem Urea nitrogen [Mass/Vol] 19 mg/dL Normal 5 - 21 mg/dL Remisol Chem Urea nitrogen/Creatinine [Mass ratio] 27 mg/mg High 10 - 20 Remisol Chem Family Medicine Office/Clini c Noteon 08-24-2023 Family Medicine Office/Clinic Note HPI Staff Nori is an 82 year old female presenting for 6 month follow up Patient is here for follow up on hypertension. How often are you checking your blood pressure? 2-3 times a week are your average readings? 130's-140's/ 60's, pt brought in b/p log Migraines: medication continues to work well when needed hasn't needed it for a while now. Needs refills on: Klor-con, Pt needs refill on amoxicillin 500mg take 4 capsules by mouth 1/2 hour before dental procedure. History of Present Illness pt presents today for BP follow up. pt complaining of leg cramps, fatigue and wekaness Review of Systems PHQ Score Initial Depression Screen Score: 0 SCORE Physical Exam Vitals & Measurements HR: 72(Peripheral) RR: 18 BP: 140/68 SpO2: 96% HT: 65 in HT: 166.0 cm WT: 84.00 kg WT: 184.8 lb BMI: 30.48 General: alert, no acute distress ENMT: oral mucosa moist, no pharyngeal erythema or exudate Cardiovascular: regular rate and rhythm, normal peripheral perfusion Respiratory: Lungs CTA, respirations non labored Extremities: no deformity, no trauma Neurological: oriented x 4, LOC appropriate for age, CN II-XII intact, motor strength equal & normal bilaterally, speech normal Assessment/Plan 1. HTN (hypertension) (I10: Essential (primary) hypertension) BP at goal. does not need refill son meds at this time. 2. Fatigue (R53.83: Other fatigue) pt c/o fatigue and generalized leg weakness. Labs drawn in office today Ordered: Basic Metabolic Panel Iron Level Lab Specimen Collect 97807 Vitamin D 25 Hydroxy 3. Leg cramps (R25.2: Cramp and spasm) pt c/o leg cramps and feeling week will check electrolytes today Ordered: Basic Metabolic Panel Iron Level Lab Specimen Collect 81145 Vitamin D 25 Hydroxy 4. Non-smoker (Z78.9: Other specified health status) continue not smoking Ordered: Basic Metabolic Panel Iron Level Lab Specimen Collect 83806 Vitamin D 25 Hydroxy 5. BMI 30.0-30.9,adult (Z68.30: Body mass index [BMI] 30.0-30.9, adult) BMI education complete Ordered: Basic Metabolic Panel Iron Level Lab Specimen Collect 43092 Vitamin D 25 Hydroxy Orders: amoxicillin, See Instructions, TAKE 4 CAPSULES BY MOUTH 1/2 HOUR BEFORE PROCEDURE AND 2 CAPSULES 4 HOURS AFTER PROCEDURE, # 6 cap(s), Refills(s) 1, Pharmacy: [id number], 166, cm, 03/16/23 9:10:00 EST, Height/Length Dosing, 85.6, kg, 03/16/23 9:10:00 EST, W... amoxicillin, See Instructions, TAKE 4 CAPSULES BY MOUTH 1/2 HOUR BEFORE PROCESURE AND 2 CAPSULES 4 HOURS AFTER, # 6 caplet(s), Refills(s) 1, Pharmacy: [id number], 166, cm, 08/24/23 8:56:00 EDT, Height/Length Dosing, 84, kg, 08/24/23 8:56:00 EDT, Weight Dosing potassium chloride, 20 mEq = 1 tab(s), Oral, Daily, # 90 tab(s), Refills(s) 1, Pharmacy: [id number], 166, cm, 08/24/23 8:56:00 EDT, Height/Length Dosing, 84, kg, 08/24/23 8:56:00 EDT, Weight Dosing Follow-up No qualifying data available Problem List/Past Medical History Ongoing Allergic rhinitis, seasonal Asthma BMI 30.0-30.9,adult Cerumen impaction Change in bowel habits Chronic UTI Diverticulosis Fatigue GERD (gastroesophageal reflux disease) HTN (hypertension) Leg cramps Migraines Osteoporosis Personal history of colonic polyps Vitamin D deficiency Historical No qualifying data Procedure/Surgical History Cataract extraction and insertion of intraocular lens (05/14/2020), Cataract extraction and insertion of intraocular lens (04/30/2020), Colonoscopy (11/25/2016), Colonoscopy (10/11/2013), Colonoscopy (09/28/2012), Appendectomy, Arthroplasty of knee, Cervical polypectomy, Cholecystectomy, Cystoscopy, Urethral dilatation. Medications albuterol, NEB, q4hr, PRN alendronate 70 mg Tab, 70 mg= 1 tab(s), Oral, q7day amoxicillin 500 mg Cap, See Instructions, 1 refills APAP/butalbital/caff eine 325 mg-50 mg-40 mg Tab, 1 tab(s), Oral, q4hr, PRN calcium (as carbonate) 600 mg oral tablet, 600 mg= 1 tab(s), Oral, Daily Celebrate Multivitamin oral capsule, 1 cap(s), Oral, Daily Colestid 1 g Tab, 1 gm= 1 tab(s), Oral, Daily, 1 refills hydrochlorothiazide 12.5 mg Cap, 12.5 mg= 1 cap(s), Oral, Daily, 3 refills Klor-Con M20 oral tablet, extended release, 20 mEq= 1 tab(s), Oral, Daily, 6 refills Klor-Con M20 oral tablet, extended release, 20 mEq= 1 tab(s), Oral, Daily, 1 refills losartan 25 mg Tab, 25 mg= 1 tab(s), Oral, BID, 3 refills Nature's Bounty Red Krill Oil, 500 mg, Oral, Daily Vitamin D3, 50 mcg, Oral, Daily Allergies cefuroxime (Syncope and collapse, Itch) amitriptyline (Unknown) Social History Alcohol - Low Risk, 12/01/2022 Wine, 1-2 times per year, 1 drinks/episode average. 2.00 drinks/episode maximum. Household alcohol concerns: No., 12/01/2022 Substance Abuse - Denies Substance Abuse, 04/08/2021 Tobacco Never (less than 100 in lifetime) Tobacco Use:. Never Smokeless Tobacco Use:. Household tobacco concerns: No., 08/24/2023 Family History Cardiac arres (more content not included)... Normal [facility] Comment on above: Result Comment: Elec tronically Signed By: Sabina Ruth\.br\Date and Time Signed: 08/24/23 13:06 EDT Ironon 08-24-2023 Iron [Mass/Vol] 63 microgram/dL Normal 35-153 [facility] Comment on above: Performed By: #### 5 [id number], [id number], [id number] ####[facility] [address] [place] [address] Patient Logson 08-24-2023 Patient Logs [id number] #1.00TIFF Normal [facility] Vitamin D 25 Hydroxyon 08-23 25-hydroxyvitamin D3 [Mass/Vol] 53.7 ng/mL Normal 30.0-100.0 [facility] Comment on above: Performed By: #### 5 [id number], [id number], [id number], [id number] ####[facility] [address] [place] [address] eGFRon 08-24-2023 eGFR 87 mL/min/1.73 m2 Normal >=59 [facility] Comment on above: Order Comment: Order added by Discern Expert. Performed By: #### 5 [id number], [id number], [id number], [id number] ####[facility] [address] [place] [address] Nurse Consultation Noteon Nurse Consultation Note Reason for Visit Pt presents today to have ear flushed. Pt has impacted cerumen mostly on the Left side. Pt was here ten days ago for a flush, advised to use debrox for 10 days and return for flush. We removed several chunks of hardened wax. Noted blood on last bit, will have Sabina take a look. Pt said hearing did improve some after wax removal. Right side flushed, wax was very soft, got a small amount. Debrox -10 Pain/discharge from ear - none noted, pt said she did feel things moving around after using debrox at night. Earwax removal done with irrigation and curette. Pt had no complaints of dizziness, but said her left ear was sore after flushing and use of currette. Medications albuterol, NEB, q4hr, PRN alendronate 70 mg Tab, 70 mg= 1 tab(s), Oral, qWeek amoxicillin 500 mg Cap, See Instructions, 1 refills APAP/butalbital/caff eine 325 mg-50 mg-40 mg Tab, 1 tab(s), Oral, q4hr, PRN calcium (as carbonate) 600 mg oral tablet, 600 mg= 1 tab(s), Oral, Daily Celebrate Multivitamin oral capsule, 1 cap(s), Oral, Daily Colestid 1 g oral tablet, 1 gm= 1 tab(s), Oral, qAM hydrochlorothiazide 12.5 mg Cap, 12.5 mg= 1 cap(s), Oral, Daily, 3 refills Klor-Con M20 oral tablet, extended release, 20 mEq= 1 tab(s), Oral, Daily, 6 refills losartan 25 mg Tab, 25 mg= 1 tab(s), Oral, BID, 2 refills Misc Medication, Daily Nature's Bounty Red Krill Oil, 500 mg, Oral, Daily Vitamin D3, 50 mcg, Oral, Daily Allergies cefuroxime (Syncope and collapse, Itch) amitriptyline (Unknown) Immunizations Vaccine Date Status Comments SARS-CoV-2 mRNA (toshantelnameran 5y-11y) vac 03/16/2023 Recorded covid 19 vishal-sucrose SARS-CoV-2 (COVID-19) [id number] 02/23/2022 Recorded influenza virus vaccine, inactivated 02/10/2022 Recorded SARSCoV2 mRNA(tojennifer-vishal- sucros) vac 11/12/2021 Recorded influenza virus vaccine, inactivated - Not Given Patient Refuses SARS-CoV-2 (COVID-19) mRNA BNT-162b2 vax 01/23/2021 Recorded 2022-11-25: TPV75 SARS-CoV-2 (COVID-19) mRNA BNT-162b2 vax 06/12/2020 Recorded 2022-11-25: TPV75 SARS-CoV-2 (COVID-19) mRNA BNT-162b2 vax 05/22/2020 Recorded 2022-11-25: TPV75 influenza virus vaccine, inactivated 01/26/2020 Recorded pneumococcal 13-valent vaccine 04/19/2019 Recorded influenza virus vaccine, inactivated 02/23/2019 Recorded pneumococcal 23-valent vaccine 05/25/2018 Recorded influenza virus vaccine, inactivated 02/15/2018 Recorded influenza virus vaccine, inactivated 02/24/2017 Recorded pneumococcal 13-valent vaccine 03/06/2016 Recorded influenza virus vaccine, inactivated 02/20/2016 Recorded influenza virus vaccine, inactivated 02/20/2014 Recorded influenza virus vaccine, inactivated 02/22/2013 Recorded influenza virus vaccine, inactivated 03/06/2010 Recorded influenza, whole 02/05/2009 Recorded [facility] Immunization Recordson 03-18 Immunization Records [id number] #1.00TIFF [facility] Ambulatory Visit Summaryon 05-16-2022 Ambulatory Visit Summary NORI PERSTON :1940 Visit Date:03/16/2023 Ambulatory Visit Instructions Your Diagnosis HTN (hypertension) BMI 31.0-31.9,adult Non-smoker Cerumen impaction Your Care Team Attending Physician - Sabina Ruth Primary Care Physician - Sabina Ruth This Is Your Medications List APAP/butalbital/caff eine (APAP/butalbital/caf feine 325 mg-50 mg-40 mg Tab) Non-Formulary Medication (Misc Medication) albuterol alendronate (alendronate 70 mg Tab) amoxicillin (amoxicillin 500 mg Cap) calcium carbonate (calcium (as carbonate) 600 mg oral tablet) cholecalciferol (Vitamin D3) colestipol (Colestid 1 g oral tablet) hydrochlorothiazide (hydrochlorothiazide 12.5 mg Cap) losartan (losartan 25 mg Tab) multivitamin with minerals (Celebrate Multivitamin oral capsule) omega-3 polyunsaturated fatty acids (Nature's Bounty Red Krill Oil) potassium chloride (Klor-Con M20 oral tablet, extended release) Procedures Performed Cataract extraction and insertion of intraocular lens (05/14/2020), Cataract extraction and insertion of intraocular lens (04/30/2020), Colonoscopy (11/25/2016), Colonoscopy (10/11/2013), Colonoscopy (09/28/2012), Appendectomy, Arthroplasty of knee, Cervical polypectomy, Cholecystectomy, Cystoscopy, Urethral dilatation. Discharge Vitals Heart Rate (Peripheral) 80 Respiratory Rate 18 Blood Pressure 156/86 Height 166 cm Height 65 in Weight 85.60 kg Weight 188.32 lb BMI 31.06 What to do next Scheduled Follow-Up Appointments Wednesday 9:00 AM EST With: Where: [facility] Invalid Interpretation Code [address] [place] [address]- \.br\ Wednesday 2:00 PM EDT \.br\ With:\.br\ Where: [facility] Family Medicine Office/Clini c Noteon 03-16-2023 Family Medicine Office/Clinic Note HPI Staff Nori is an 82 year old female presenting for 6 week follow up CORAL: 02/02/23 added HCTZ Patient is here for follow up on hypertension. How often are you checking your blood pressure? pt brought b/p log Checking almost daily What are your average readings? 130's-150's/ 60's pt denies any side effects from adding the HCTZ Onset: 1 week Left Ear feels full denies any pain History of Present Illness pt presents today for follow up on BP. BP log reviewed Review of Systems PHQ Score Initial Depression Screen Score: 0 SCORE ROS - Provider Constitutional: no fever, no chills, no sweats, no fatigue Respiratory: no shortness of breath, no cough, no orthopnea, no wheezing. Cardiovascular: no chest pain, no palpitations, no edema. Neurologic: no headache, no dizziness, no numbness, no weakness. Physical Exam Vitals & Measurements HR: 80(Peripheral) RR: 18 BP: 156/86 SpO2: 98% HT: 65 in HT: 166 cm WT: 85.60 kg WT: 188.32 lb BMI: 31.06 General: alert, no acute distress ENMT: oral mucosa moist, no pharyngeal erythema or exudate Cardiovascular: regular rate and rhythm, normal peripheral perfusion Respiratory: Lungs CTA, respirations non labored Extremities: no deformity, no trauma Neurological: oriented x 4, LOC appropriate for age, CN II-XII intact, motor strength equal & normal bilaterally, speech normal Assessment/Plan 1. HTN (hypertension) (I10: Essential (primary) hypertension) pt presents today for BP follow up. BP log reviewed. most BP are at goal. will keep current dose of meds. pt needs refills on a few other meds today. all questions answered. RTC 6 months 2. BMI 31.0-31.9,adult (Z68.31: Body mass index [BMI] 31.0-31.9, adult) BMI education complete 3. Non-smoker (Z78.9: Other specified health status) continue not smoking 4. Cerumen impaction (H61.20: Impacted cerumen, unspecified ear) pt c/o feeling like her ears are full of wax. JAMES canals are impacted. ears were flushed in office today. unable to get much out. pt will use debrox for a week then return for flush Orders: amoxicillin, See Instructions, TAKE 4 CAPSULES BY MOUTH 1/2 HOUR BEFORE PROCEDURE AND 2 CAPSULES 4 HOURS AFTER PROCEDURE, # 6 cap(s), Refills(s) 1, Pharmacy: [facility] #[id number], 166, cm, 03/16/23 9:10:00 EST, Height/Length Dosing, 85.6, kg, 03/16/23 9:10:00 EST, W... APAP/butalbital/caff eine, 1 tab(s), Oral, q4hr Headache, 30 tab(s), Refill(s) 0, [facility]/pharmacy #[id number], 166, cm, 03/16/23 9:10:00 EST, Height/Length Dosing, 85.6, kg, 03/16/23 9:10:00 EST, Weight Dosing Follow-up No qualifying data available Problem List/Past Medical History Ongoing Allergic rhinitis, seasonal Asthma BMI 30.0-30.9,adult Cerumen impaction Change in bowel habits Chronic UTI Diverticulosis Fatigue GERD (gastroesophageal reflux disease) HTN (hypertension) Migraines Osteoporosis Personal history of colonic polyps Vitamin D deficiency Historical No qualifying data Procedure/Surgical History Cataract extraction and insertion of intraocular lens (05/14/2020), Cataract extraction and insertion of intraocular lens (04/30/2020), Colonoscopy (11/25/2016), Colonoscopy (10/11/2013), Colonoscopy (09/28/2012), Appendectomy, Arthroplasty of knee, Cervical polypectomy, Cholecystectomy, Cystoscopy, Urethral dilatation. Medications albuterol, NEB, q4hr, PRN alendronate 70 mg Tab, 70 mg= 1 tab(s), Oral, qWeek amoxicillin 500 mg Cap, See Instructions, 1 refills APAP/butalbital/caff eine 325 mg-50 mg-40 mg Tab, 1 tab(s), Oral, q4hr, PRN calcium (as carbonate) 600 mg oral tablet, 600 mg= 1 tab(s), Oral, Daily Celebrate Multivitamin oral capsule, 1 cap(s), Oral, Daily Colestid 1 g oral tablet, 1 gm= 1 tab(s), Oral, qAM hydrochlorothiazide 12.5 mg Cap, 12.5 mg= 1 cap(s), Oral, Daily, 3 refills Klor-Con M20 oral tablet, extended release, 20 mEq= 1 tab(s), Oral, Daily, 6 refills losartan 25 mg Tab, 25 mg= 1 tab(s), Oral, BID, 2 refills Misc Medication, Daily Nature's Bounty Red Krill Oil, 500 mg, Oral, Daily Vitamin D3, 50 mcg, Oral, Daily Allergies cefuroxime (Syncope and collapse, Itch) amitriptyline (Unknown) Social History Alcohol - Low Risk, 12/01/2022 Wine, 1-2 times per year, 1 drinks/episode average. 2.00 drinks/episode maximum. Household alcohol concerns: No., 12/01/2022 Substance Abuse - Denies Substance Abuse, 04/08/2021 Tobacco Never (less than 100 in lifetime) Tobacco Use:. Never Smokeless Tobacco Use:. Household tobacco concerns: No., 03/16/2023 Family History Cardiac arrest: Mother. Primary malignant neoplasm of colon: Father. Immunizations Vaccine Date Status Comments SARS-CoV-2 (COVID-19) [id number] 02/23/2022 Recorded influenza virus vaccine, inactivated 02/10/2022 Recorded SARSCoV2 mRNA(tozinamer-vishal- sucros) vac 11/12/2021 Recorded influenza virus vaccine, inactivated - Not Given Patient Refuses SARS-CoV-2 (COVID-19) mRNA BNT-162b2 vax 01/23/2021 Recorded 2022-11-25: [id number] (more content not included)... [facility] Comment on above: Result Comment: Elec tronically Signed By: Sabina Ruth\.br\Date and Time Signed: 03/16/23 10:17 EST Patient Logson 03-16-2023 Patient Logs [id number] #1.00TIFF [facility] Patient Logson 03-09-2023 Patient Logs [id number] #1.00TIFF [facility] Patient Logson 02-03-2023 Patient Logs [id number] #1.00TIFF [facility] Ambulatory Visit Summaryon 1 Ambulatory Visit Summary NORI PRESTON :1940 Visit Date:02/02/2023 Ambulatory Visit Instructions Your Diagnosis BMI 30.0-30.9,adult Non-smoker Your Care Team Attending Physician - Sabina Ruth Primary Care Physician - Sabina Ruth This Is Your Medications List Non-Formulary Medication (Misc Medication) albuterol alendronate (alendronate 70 mg Tab) calcium carbonate (calcium (as carbonate) 600 mg oral tablet) cholecalciferol (Vitamin D3) colestipol (Colestid 1 g oral tablet) losartan (losartan 25 mg Tab) multivitamin with minerals (Celebrate Multivitamin oral capsule) omega-3 polyunsaturated fatty acids (Nature's Bounty Red Krill Oil) Procedures Performed Cataract extraction and insertion of intraocular lens (05/14/2020), Cataract extraction and insertion of intraocular lens (04/30/2020), Colonoscopy (11/25/2016), Colonoscopy (10/11/2013), Colonoscopy (09/28/2012), Appendectomy, Arthroplasty of knee, Cervical polypectomy, Cholecystectomy, Cystoscopy, Urethral dilatation. Discharge Vitals Heart Rate (Peripheral) 64 Respiratory Rate 18 Blood Pressure 156/84 Height 65 in Height 166 cm Weight 187 lb Weight 85.0 kg BMI 30.85 What to do next Scheduled Follow-Up Appointments Wednesday 9:00 AM EST With: Sabina Ruth Where: [place] [id number] \.br\ Medications\.br\ What How Much When Why Instructions\.br\ Unchanged albuterol Nebulized inhalation (aerosol) Every 4 hours as needed for Allergy symptoms\.br\ Unchanged alendronate (alendronate 70 mg Tab) 1 Tablets By Mouth Every week\.br\ Unchanged calcium carbonate (calcium (as carbonate) 600 mg oral tablet) 1 Tablets By Mouth Every day\.br\ Unchanged cholecalciferol (Vitamin D3) 50 Microgram By Mouth Every day\.br\ Unchanged colestipol (Colestid 1 g oral tablet) 1 Tablets By Mouth Once a day (in the morning)\.br\ Unchanged losartan (losartan 25 mg Tab) 1 Tablets By Mouth 2 times a day BMI 31.0-31.9,adult Non-smoker Hypertension Duration: 30 Days\.br\ Unchanged multivitamin with minerals (Celebrate Multivitamin oral capsule) 1 Capsules By Mouth Every day\.br\ Unchanged Non-Formulary Medication (Misc Medication) Every day\.br\ Unchanged omega-3 polyunsaturated fatty acids (Nature's Bounty Red Krill Oil) 500 Milligram By Mouth Every day\.br\ Allergies\.br\ cefuroxime (Syncope and collapse, Itch)\.br\ amitriptyline (Unknown)\.br\ Problems\.br\ Ongoing - Any problem that you are currently receiving treatment for.\.br\ Allergic rhinitis, seasonal\.br\ Asthma\.br\ BMI 30.0-30.9,adult\.br\ Change in bowel habits\.br\ Chronic UTI\.br\ Diverticulosis\.br\ Fatigue\.br\ GERD (gastroesophageal reflux disease)\.br\ HTN (hypertension)\.br\ Migraines\.br\ Osteoporosis\.br\ Personal history of colonic polyps\.br\ Vitamin D deficiency\.br\ \.br\ [facility] Auto Diffon 02-02-2023 Basophils/100 WBC (Bld) 0.5 % Normal 0.0-2.0 [facility] Comment on above: Order Comment: Order Added by Discern Expert. Performed By: #### 2 454894, 6106494, 86117366, 6404799, 0378757, 7117363 ####[facility] [address] [place] [address] Basophils/Leukocyte s Auto (Bld) [Pure # fraction] 0.0 E9/L Normal 0.0-0.2 [facility] Comment on above: Order Comment: Order Added by Discern Expert. Performed By: #### 2 946684, 9319744, 86630639, 9679410, 3297014, 1944903 ####[facility] [address] [place] [address] Eosinophils/100 WBC (Bld) 1.4 % Normal 0.0-8.0 [facility] Comment on above: Order Comment: Order Added by Discern Expert. Performed By: #### 2 717032, 1756331, 37641098, 1142034, 5534589, 3492523 ####[facility] [address] [place] [address] Eosinophils/Leukocy augustus Auto (Bld) [Pure # fraction] 0.1 E9/L Normal 0.0-0.5 [facility] Comment on above: Order Comment: Order Added by Discern Expert. Performed By: #### 2 311882, 6324159, 83390311, 1928024, 8281568, 3353966 ####[place] [address] [place] [address] Lymphocytes/100 WBC (Bld) 33.1 % Normal 14.0-50.0 [facility] Comment on above: Order Comment: Order Added by Discern Expert. Performed By: #### 2 516999, 1620047, 94736977, 4601059, 4616898, 6072416 ####[address] [address] Lymphocytes/Leukocy augustus Auto (Bld) [Pure # fraction] 2.0 E9/L Normal 1.0-4.0 [facility] Comment on above: Order Comment: Order Added by Marcio Expert. Performed By: #### 2 233778, 5279433, 96244805, 7762400, 8152026, 3975522 ####[address] [address] Monocytes/100 WBC (Bld) 8.3 % Normal 4.0-14.0 [facility] Comment on above: Order Comment: Order Added by Marcio Expert. Performed By: #### 2 906996, 5743511, 86286296, 7648168, 3049558, 9090084 ####[address] [address] Monocytes/Leukocyte s Auto (Bld) [Pure # fraction] 0.5 E9/L Normal 0.2-1.0 [facility] Comment on above: Order Comment: Order Added by Discern Expert. Performed By: #### 2 123423, 6782595, 26142169, 3343439, 7247330, 7913681 ####[address] [address] Neutrophils/100 WBC (Bld) 56.7 % Normal 36.0-75.0 [facility] Comment on above: Order Comment: Order Added by Discern Expert. Performed By: #### 2 838183, 9701659, 97197107, 4190336, 0079352, 0598819 ####[address] [place] [address] Neutrophils/Leukocy augustus Auto (Bld) [Pure # fraction] 3.5 E9/L Normal 2.0-7.5 [facility] Comment on above: Order Comment: Order Added by Discern Expert. Performed By: #### 2 674759, 5202093, 43091835, 8355825, 2146522, 1550937 ####[address] [place] [address] CBC w/ Auto Diffon Erythrocyte distribution width (RBC) [Ratio] 14.5 % High 10.9-14.2 [facility] Comment on above: Performed By: #### 2 141716, 7908944, 24605931, 9448044, 0559180, 8287239 ####[address] [address] Hematocrit (Bld) [Volume fraction] 38.8 % Normal 34.0-46.0 [facility] Comment on above: Performed By: #### 2 129917, 3933013, 91691392, 1942795, 9378545, 3981809 ####[address] [place] [address] Hemoglobin (Bld) [Mass/Vol] 13.1 g/dL Normal 12.0-16.0 [facility] Comment on above: Performed By: #### 2 826226, 4810251, 75531004, 7469843, 9111606, 3517396 ####[place] [place] [address] MCH (RBC) [Entitic mass] 29.8 pg Normal 27.0-34.0 [facility] Comment on above: Performed By: #### 2 227103, 1061943, 89175245, 0910246, 9351833, 4075837 ####[place] [address] [place] [address] MCHC (RBC) [Mass/Vol] 33.8 g/dL Normal 31.4-36.0 [facility] Comment on above: Performed By: #### 2 238434, 1006757, 12258590, 6037736, 9998554, 0934502 ####[facility] [address] [place] [address] MCV (RBC) [Entitic vol] 88.3 fL Normal 80.0-100.0 [facility] Comment on above: Performed By: #### 2 741298, 3697279, 42340122, 3514661, 7464894, 9820858 ####[place] [address] [place] [address] Platelet mean volume (Bld) [Entitic vol] 9.0 fL Normal 6.4-10.8 [facility] Comment on above: Performed By: #### 2 286172, 4315570, 44481518, 8702267, 6741672, 0217197 ####[address] [address] Platelets (Bld) [#/Vol] 232.0 E9/L Normal 150.0-500.0 [facility] Comment on above: Performed By: #### 2 125344, 5331079, 52705196, 1724858, 0523252, 4902074 ####[address] [address] RBC (Bld) [#/Vol] 4.4 E12/L Normal 4.3-5.9 [facility] Comment on above: Performed By: #### 2 688207, 2926031, 12897142, 3606420, 6530625, 8814733 ####[address] [place] [address] WBC corrected for nucl RBC Auto (Bld) [#/Vol] 6.2 E9/L Normal 4.0-11.0 [facility] Comment on above: Performed By: #### 2 495791, 2730524, 12734156, 6829129, 0630931, 4468848 ####[facility] [address] [place] [id number] CHEMISTRYOrdered By: SYSTEM SYSTEM on 02-02-2023 Albumin [Mass/Vol] 4.1 g/dL Normal 3.3 - 5.0 gm/dL F [facility] Albumin/Globulin [Mass ratio] 1.2 {ratio} Normal 1.1 - 2.2 [facility] ALP [Catalytic activity/Vol] 46 [iU]/d Normal 21 - 98 Int._Unit/L [facility] ALT No additional P-5'-P [Catalytic activity/Vol] 18 [iU]/d Normal 6 - 46 Int._Unit/L [facility] Anion gap [Moles/Vol] 11 mmol/L Normal 6 - 16 mEq/L [facility] AST [Catalytic activity/Vol] 23 [iU]/d Normal 5 - 43 Int._Unit/L [facility] Bilirubin [Mass/Vol] 0.4 mg/dL Normal 0.0 - 1.1 mg/dL [facility] Calcium [Mass/Vol] 9.9 mg/dL Normal 8.9 - 11.1 mg/dL [facility] Chloride [Moles/Vol] 106 mmol/L Normal 101 - 111 mmol/L [facility] Cholesterol [Mass/Vol] 178 mg/dL Normal 120 - 200 mg/dL [facility] Cholesterol in HDL [Mass/Vol] 59 mg/dL Invalid Interpretation Code [facility] Comment on above: Interpretive Data: H DL > or equal to 60 mg/dL: Low cardiovascular risk HDL < 40 mg/dL : High cardiovascular risk Cholesterol in LDL [Mass/Vol] 107 mg/dL Normal <=129mg/dL [facility] Cholesterol in VLDL [Mass/Vol] 9 mg/dL Normal 7 - 40 mg/dL [facility] CO2 [Moles/Vol] 29 mmol/L Normal 21 - 31 mmol/L [facility] Creatinine [Mass/Vol] 0.8 mg/dL Normal 0.5 - 1.3 mg/dL [facility] GFR/1.73 sq M.predicted among non-blacks MDRD (S/P/Bld) [Vol rate/Area] 74 mL/min/1.73 m2 Normal >=59mL/min/1.73 m2 [facility] Comment on above: Interpretive Data: C hronic kidney disease could be indicated at eGFR's of less than 60 mL/min/1.73m2. Kidney failure is indicated at less than 15 mL/min/1.73m2. Globulin (S) [Mass/Vol] 3.3 g/dL Normal 1.4 - 4.0 gm/dL [facility] Glucose [Mass/Vol] 90 mg/dL Normal 55 - 199 mg/dL [facility] Comment on above: Interpretive Data: I f this glucose result represents a fasting glucose, interpretation should refer to the following reference range: 55-99 mg/dL Potassium [Moles/Vol] 4.2 mmol/L Normal 3.5 - 5.3 mmol/L [facility] Protein [Mass/Vol] 7.4 g/dL Normal 6.0 - 7.8 gm/dL [facility] [place] [facility] Sodium [Moles/Vol] 142 mmol/L Normal 135 - 145 mmol/L [facility] Triglyceride [Mass/Vol] 47 mg/dL Normal <=149mg/dL [facility] TSH Qn 2.12 m[IU]/L Normal 0.34 - 5.60 mcIU/mL [facility] Urea nitrogen [Mass/Vol] 17 mg/dL Normal 5 - 21 mg/dL [facility] Urea nitrogen/Creatinine [Mass ratio] 21 mg/mg High 10 - 20 [facility] CMPon 02-02-2023 Albumin [Mass/Vol] 4.1 g/dL Normal 3.3-5.0 [facility] Comment on above: Performed By: #### 2 824484, 1547487, 28169035, 7443682, 1292377, 4794995 ####[facility] [address] [place] [address] Albumin/Globulin (S) [Mass conc ratio] 1.2 Normal 1.1-2.2 [facility] Comment on above: Performed By: #### 2 125968, 7815295, 01013001, 8376609, 0585989, 5751429 ####[facility] [address] [place] [address] ALP [Catalytic activity/Vol] 46 Int._Unit/L Normal 21-98 [facility] Comment on above: Performed By: #### 2 230085, 9858449, 68503443, 3416294, 4519402, 2342024 ####[facility] [address] [place] [address] ALT No additional P-5'-P [Catalytic activity/Vol] 18 Int._Unit/L Normal 6-46 [facility] Comment on above: Performed By: #### 2 903874, 3470101, 91893973, 0250575, 9349240, 1056780 ####[facility] [address] [place] [address] Anion gap [Moles/Vol] 11 mmol/L Normal 6-16 [facility] Comment on above: Performed By: #### 2 392488, 8454645, 25336333, 9663056, 6084126, 5763914 ####[facility] [address] [place] [address] AST [Catalytic activity/Vol] 23 Int._Unit/L Normal 5-43 [facility] Comment on above: Performed By: #### 2 586155, 8429967, 63328036, 9632283, 9474437, 5671406 ####[facility] [address] [place] [address] Bilirubin [Mass/Vol] 0.4 mg/dL Normal 0.0-1.1 [facility] Comment on above: Performed By: #### 2 898573, 3870457, 81847249, 1430706, 8314961, 3192331 ####[facility] [address] [place] [address] Calcium [Mass/Vol] 9.9 mg/dL Normal 8.9-11.1 [facility] Comment on above: Performed By: #### 2 914444, 9253644, 96643848, 9015377, 2331630, 2629322 ####[facility] [address] [place] [address] Chloride [Moles/Vol] 106 mmol/L Normal 101-111 [facility] Comment on above: Performed By: #### 2 214352, 6726354, 35680606, 3686736, 7131100, 0325383 ####[facility] [address] [place] [address] CO2 [Moles/Vol] 29 mmol/L Normal 21-31 [facility] Comment on above: Performed By: #### 2 959337, 1280190, 17086686, 5415215, 3657288, 6793350 ####[facility] [address] [place] [address] Creatinine [Mass/Vol] 0.8 mg/dL Normal 0.5-1.3 [facility] Comment on above: Performed By: #### 2 832798, 6278571, 97259362, 4795314, 2172637, 3195683 ####[facility] [address] [place] [address] Globulin (S) [Mass/Vol] 3.3 g/dL Normal 1.4-4.0 [facility] Comment on above: Performed By: #### 2 366224, 9347862, 21186869, 9705099, 0340756, 3591261 ####[facility] [address] [place] [address] Glucose [Mass/Vol] 90 mg/dL Normal 55-199 [facility] Comment on above: Result Comment: If t his glucose result represents a fasting glucose, interpretation should refer to the following reference range: 55-99 mg/dL Performed By: #### 2 013956, 3308789, 83712370, 4211581, 4323359, 0783868 ####[facility] [address] [place] [address] Potassium [Moles/Vol] 4.2 mmol/L Normal 3.5-5.3 [facility] Comment on above: Performed By: #### 2 922954, 5210569, 38998050, 7900102, 2239215, 2819378 ####[facility] [address] [place] [address] Protein [Mass/Vol] 7.4 g/dL Normal 6.0-7.8 [facility] Comment on above: Performed By: #### 2 172364, 2023747, 18801431, 5782883, 1926449, 5812470 ####[facility] [address] [place] [address] Sodium [Moles/Vol] 142 mmol/L Normal 135-145 [facility] Comment on above: Performed By: #### 2 557946, 2411783, 27483329, 0995438, 2888399, 7661962 ####[facility] [address] [place] [address] Urea nitrogen [Mass/Vol] 17 mg/dL Normal 5-21 [facility] Comment on above: Performed By: #### 2 680190, 4253945, 58182965, 9225895, 2048153, 6577373 ####[facility] [address] [place] [address] Urea nitrogen/Creatinine [Mass ratio] 21 No Units High 10-20 [facility] Comment on above: Performed By: #### 2 042667, 2268787, 27946977, 6620749, 8098600, 8095901 ####[facility] [address] [place] [address] Family Medicine Office/Clini c Noteon 02-02-2023 Family Medicine Office/Clinic Note HPI Staff Nori is a 82 year old female presenting for 1 month follow up HTN CORAL: 01/05/23 Metoprolol stopped and started Losartan Patient is here for follow up on hypertension. How often are you checking your blood pressure? Daily What are your average readings? 150's-190's over 60-70's Do you have any of the following symptoms? Chest Pain? no Palpitations? no TRAVIS/SOB? no Headache? no Peripheral Edema? no Light Headiness? no Fatigued: yes Questions/Concerns: pt brought in blood pressure log History of Present Illness pt present today for BP follow up and lab work Review of Systems PHQ Score Initial Depression Screen Score: 0 ROS - Provider Constitutional: no fever, no chills, no sweats, no fatigue Respiratory: no shortness of breath, no cough, no orthopnea, no wheezing. Cardiovascular: no chest pain, no palpitations, no edema. Neurologic: no headache, no dizziness, no numbness, no weakness. Physical Exam Vitals & Measurements HR: 64(Peripheral) RR: 18 BP: 156/84 SpO2: 98% HT: 65 in HT: 166 cm WT: 85.0 kg WT: 187 lb BMI: 30.85 General: alert, no acute distress ENMT: oral mucosa moist, no pharyngeal erythema or exudate Cardiovascular: regular rate and rhythm, normal peripheral perfusion Respiratory: Lungs CTA, respirations non labored Extremities: no deformity, no trauma Neurological: oriented x 4, LOC appropriate for age, CN II-XII intact, motor strength equal & normal bilaterally, speech normal Assessment/Plan 1. Hypertension (I10: Essential (primary) hypertension) pt presents today for BP follow up. BP log reviewed. Systolic BP is still 150-190's, diastolic is 60-80's. will keep losartan at current dose and add HCTZ in am. in hopes of bringing her systolic below 150's. will start potassium. pt to continue checking BP daily and return to clinic in 6 weeks. discussed decreasing salt intake and making healthy food choices. Ordered: losartan, 25 mg = 1 tab(s), Oral, BID, X 30 day(s), # 60 tab(s), Refills(s) 1, Pharmacy: [facility]/pharmacy #[id number], 166, cm, 01/05/23 10:05:00 EDT, Height/Length Dosing, 85.2, kg, 01/05/23 10:05:00 EDT, Weight Dosing losartan, 25 mg = 1 tab(s), Oral, BID, X 30 day(s), # 60 tab(s), Refills(s) 2, Pharmacy: [facility] #[id number], 166, cm, 02/02/23 8:45:00 EDT, Height/Length Dosing, 85, kg, 02/02/23 8:45:00 EDT, Weight Dosing Lab Specimen Collect [id number] 2. BMI 30.0-30.9,adult (Z68.30: Body mass index [BMI] 30.0-30.9, adult) BMI education complete Ordered: hydrochlorothiazide, 12.5 mg = 1 cap(s), Oral, Daily, # 30 cap(s), Refills(s) 2, [id number] 166, cm, 02/02/23 8:45:00 EDT, Height/Length Dosing, 85, kg, 02/02/23 8:45:00 EDT, Weight Dosing potassium chloride, 20 mEq = 1 tab(s), Oral, Daily, # 30 tab(s), Refills(s) 6, [id number] 166, cm, 02/02/23 8:45:00 EDT, Height/Length Dosing, 85, kg, 02/02/23 8:45:00 EDT, Weight Dosing 3. Non-smoker (Z78.9: Other specified health status) continue not smoking Ordered: hydrochlorothiazide, 12.5 mg = 1 cap(s), Oral, Daily, # 30 cap(s), Refills(s) 2, [id number], 166, cm, 02/02/23 8:45:00 EDT, Height/Length Dosing, 85, kg, 02/02/23 8:45:00 EDT, Weight Dosing losartan, 25 mg = 1 tab(s), Oral, BID, X 30 day(s), # 60 tab(s), Refills(s) 1, [id number], 166, cm, 01/05/23 10:05:00 EDT, Height/Length Dosing, 85.2, kg, 01/05/23 10:05:00 EDT, Weight Dosing losartan, 25 mg = 1 tab(s), Oral, BID, X 30 day(s), # 60 tab(s), Refills(s) 2, [id number], 166, cm, 02/02/23 8:45:00 EDT, Height/Length Dosing, 85, kg, 02/02/23 8:45:00 EDT, Weight Dosing potassium chloride, 20 mEq = 1 tab(s), Oral, Daily, # 30 tab(s), Refills(s) 6, Pharmacy: [id number], 166, cm, 02/02/23 8:45:00 EDT, Height/Length Dosing, 85, kg, 02/02/23 8:45:00 EDT, Weight Dosing Follow-up No qualifying data available Problem List/Past Medical History Ongoing Allergic rhinitis, seasonal Asthma BMI 30.0-30.9,adult Change in bowel habits Chronic UTI Diverticulosis Fatigue GERD (gastroesophageal reflux disease) HTN (hypertension) Migraines Osteoporosis Personal history of colonic polyps Vitamin D deficiency Historical No qualifying data Procedure/Surgical History Cataract extraction and insertion of intraocular lens (05/14/2020), Cataract extraction and insertion of intraocular lens (04/30/2020), Colonoscopy (11/25/2016), Colonoscopy (10/11/2013), Colonoscopy (09/28/2012), Appendectomy, Arthroplasty of knee, Cervical polypectomy, Cholecystectomy, Cystoscopy, Urethral dilatation. Medications albuterol, NEB, q4hr, PRN alendronate 70 mg Tab, 70 mg= 1 tab(s), Oral, qWeek calcium (as carbonate) 600 mg oral tablet, 600 mg= 1 tab(s), Oral, Daily Celebrate Multivitamin oral capsule, 1 cap(s), Oral, Daily Colestid 1 g oral tablet, 1 gm= 1 tab(s), Oral, qAM hydrochlorothiazide 12.5 mg Cap, 12.5 mg= 1 cap(s), Oral, Daily, 2 refills Klor-Con M20 oral tablet, extende (more content not included)... Normal [facility] Comment on above: Result Comment: Elec tronically Signed By: Sabina Ruth\.br\Date and Time Signed: 02/02/23 09:40 EDT HEMATOLOGYOrdered By: SYSTEM SYSTEM on 02-02-2023 Basophils/100 WBC (Bld) 0.5 % Normal 0.0 - 2.0 % [facility] Basophils/Leukocyte s Auto (Bld) [Pure # fraction] 0.0 E9/L Normal 0.0 - 0.2 E9/L [facility] Eosinophils/100 WBC (Bld) 1.4 % Normal 0.0 - 8.0 % [facility] Eosinophils/Leukocy augustus Auto (Bld) [Pure # fraction] 0.1 E9/L Normal 0.0 - 0.5 E9/L [facility] Lymphocytes/100 WBC (Bld) 33.1 % Normal 14.0 - 50.0 % [facility] Lymphocytes/Leukocy augustus Auto (Bld) [Pure # fraction] 2.0 E9/L Normal 1.0 - 4.0 E9/L [facility] Monocytes/100 WBC (Bld) 8.3 % Normal 4.0 - 14.0 % [facility] Monocytes/Leukocyte s Auto (Bld) [Pure # fraction] 0.5 E9/L Normal 0.2 - 1.0 E9/L [facility] Neutrophils/100 WBC (Bld) 56.7 % Normal 36.0 - 75.0 % [facility] Neutrophils/Leukocy augustus Auto (Bld) [Pure # fraction] 3.5 E9/L Normal 2.0 - 7.5 E9/L [facility] HEMATOLOGYOrdered By: Sharon Estevez on 02-02-2023 Erythrocyte distribution width (RBC) [Ratio] 14.5 % High 10.9 - 14.2 % [facility] Hematocrit (Bld) [Volume fraction] 38.8 % Normal 34.0 - 46.0 % [facility] Hemoglobin (Bld) [Mass/Vol] 13.1 g/dL Normal 12.0 - 16.0 gm/dL [facility] MCH (RBC) [Entitic mass] 29.8 pg Normal 27.0 - 34.0 pg [facility] MCHC (RBC) [Mass/Vol] 33.8 g/dL Normal 31.4 - 36.0 gm/dL [facility] MCV (RBC) [Entitic vol] 88.3 fL Normal 80.0 - 100.0 fL [facility] Platelet mean volume (Bld) [Entitic vol] 9.0 fL Normal 6.4 - 10.8 fL [facility] Platelets (Bld) [#/Vol] 232.0 E9/L Normal 150.0 - 500.0 E9/L [facility] RBC (Bld) [#/Vol] 4.4 E12/L Normal 4.3 - 5.9 E12/L [facility] WBC corrected for nucl RBC Auto (Bld) [#/Vol] 6.2 E9/L Normal 4.0 - 11.0 E9/L [facility] Lipid Panelon 02-02-2023 Cholesterol [Mass/Vol] 178 mg/dL Normal 120-200 [facility] Comment on above: Performed By: #### 2 [id number], [id number], [id number], [id number], [id number], [id number] ####[facility] [address] [place] [address] Cholesterol in HDL [Mass/Vol] 59 mg/dL Invalid Interpretation Code [facility] Comment on above: Result Comment: HDL > or equal to 60 mg/dL: Low cardiovascular risk HDL < 40 mg/dL : High cardiovascular risk Performed By: #### 2 [id number], [id number], [id number], [id number], [id number], [id number] ####[facility] [address] [place] [address] Cholesterol in LDL [Mass/Vol] 107 mg/dL Normal <=129 [facility] Comment on above: Performed By: #### 2 [id number], [id number], [id number], [id number], [id number], [id number] ####[facility] [address] [place] [address] Cholesterol in VLDL [Mass/Vol] 9 mg/dL Normal 7-40 [facility] Comment on above: Performed By: #### 2 [id number], [id number], [id number], [id number], 1312856, [id number] ####[facility] [address] [place] [address] Triglyceride [Mass/Vol] 47 mg/dL Normal <=149 [facility] Comment on above: Performed By: #### 2 156838, [id number], [id number], [id number], [id number], [id number] ####[facility] [address] [place] [address] TSHon 02-02-2023 TSH Qn 2.12 m[IU]/L Normal 0.34-5.60 [facility] Comment on above: Performed By: #### 2 [id number], [id number], [id number], [id number], [id number], 5794809 ####[facility] [address] [place] [address] eGFRon 02-02-2023 GFR/1.73 sq M.predicted among non-blacks MDRD (S/P/Bld) [Vol rate/Area] 74 mL/min/1.73 m2 Normal >=59 [facility] Comment on above: Order Comment: Order added by Discern Expert. Result Comment: Piping Blocker bear kidney disease could be indicated at eGFR's of less than 60 mL/min/1.73m2. Kidney failure is indicated at less than 15 mL/min/1.73m2. Performed By: #### 2 [id number], [id number], [id number], 1908362, [id number], [id number] ####[facility] [address] [place] [address] Ambulatory Visit Summaryon 0 01-05-2023 Ambulatory Visit Summary NORI PRESTON :1940 Visit Date:01/05/2023 Ambulatory Visit Instructions Your Diagnosis BMI 30.0-30.9,adult Non-smoker, Non-smoker BMI 31.0-31.9,adult Hypertension Your Care Team Attending Physician - Sabina Ruth Primary Care Physician - Sabina Ruth This Is Your Medications List Non-Formulary Medication (Misc Medication) albuterol alendronate (alendronate 70 mg Tab) calcium carbonate (calcium (as carbonate) 600 mg oral tablet) cholecalciferol (Vitamin D3) colestipol (Colestid 1 g oral tablet) losartan (losartan 25 mg Tab) multivitamin with minerals (Celebrate Multivitamin oral capsule) omega-3 polyunsaturated fatty acids (Nature's Bounty Red Krill Oil) Procedures Performed Cataract extraction and insertion of intraocular lens (05/14/2020), Cataract extraction and insertion of intraocular lens (04/30/2020), Colonoscopy (11/25/2016), Colonoscopy (10/11/2013), Colonoscopy (09/28/2012), Appendectomy, Arthroplasty of knee, Cervical polypectomy, Cholecystectomy, Cystoscopy, Urethral dilatation. Discharge Vitals Heart Rate (Peripheral) 74 Respiratory Rate 18 Blood Pressure 190/84 Height 166 cm Height 65 in Weight 85.2 kg Weight 187.44 lb BMI 30.92 What to do next Scheduled Follow-Up Appointments Wednesday 8:20 AM EDT Where: [facility] Normal [address] [place] [address]- \.br\ Medications\.br\ What How Much When Why Instructions\.br\ New losartan (losartan 25 mg Tab) 1 Tablets By Mouth 2 times a day BMI 31.0-31.9,adult Non-smoker Hypertension Duration: 30 Days Refills: 1 Pickup at [id number]\.br\ Unchanged albuterol Nebulized inhalation (aerosol) Every 4 hours as needed for Allergy symptoms\.br\ Unchanged alendronate (alendronate 70 mg Tab) 1 Tablets By Mouth Every week\.br\ Unchanged calcium carbonate (calcium (as carbonate) 600 mg oral tablet) 1 Tablets By Mouth Every day\.br\ Unchanged cholecalciferol (Vitamin D3) 50 Microgram By Mouth Every day\.br\ Unchanged colestipol (Colestid 1 g oral tablet) 1 Tablets By Mouth Once a day (in the morning)\.br\ Unchanged multivitamin with minerals (Celebrate Multivitamin oral capsule) 1 Capsules By Mouth Every day\.br\ Unchanged Non-Formulary Medication (Misc Medication) Every day\.br\ Unchanged omega-3 polyunsaturated fatty acids ([employer] Red Krill Oil) 500 Milligram By Mouth Every day\.br\ Pharmacy Information\.br\ [id number]: [address], [place] [phone]\.br\ Allergies\.br\ cefuroxime (Syncope and collapse, Itch)\.br\ amitriptyline (Unknown)\.br\ Problems\.br\ Ongoing - Any problem that you are currently receiving treatment for.\.br\ Allergic rhinitis, seasonal\.br\ Asthma\.br\ BMI 30.0-30.9,adult\.br\ Change in bowel habits\.br\ Chronic UTI\.br\ Diverticulosis\.br\ GERD (gastroesophageal reflux disease)\.br\ HTN (hypertension)\.br\ Migraines\.br\ Osteoporosis\.br\ Personal history of colonic polyps\.br\ Vitamin D deficiency\.br\ \.br\ [facility] Family Medicine Office/Clini c Noteon 01-05-2023 Family Medicine Office/Clinic Note HPI Staff Nori is an 82 year old female presenting for 1 month follow up Patient is here for follow up on hypertension. OV 12/08/22 pt stated she decreased her Metoprolol to 25mg due to feeling fatigued. Metoprolol was D/C and Losartan 25mg was started. How often are you checking your blood pressure? daily What are your average readings? _ Questions/Concerns: pt states she doesn't have the fatigue anymore. Intermittently is feeling jittery and pressure in the head. States blood pressures are running higher. Brought blood pressure log with her. scanned into chart History of Present Illness pt presents today for BP follow up. Review of Systems PHQ Score Initial Depression Screen Score: 0 ROS - Provider Constitutional: no fever, no chills, no sweats, no fatigue Respiratory: no shortness of breath, no cough, no orthopnea, no wheezing. Cardiovascular: no chest pain, no palpitations, no edema. Neurologic: no headache, no dizziness, no numbness, no weakness. Physical Exam Vitals & Measurements HR: 74(Peripheral) RR: 18 BP: 190/84 SpO2: 96% HT: 65 in HT: 166 cm WT: 85.2 kg WT: 187.44 lb BMI: 30.92 General: alert, no acute distress ENMT: oral mucosa moist, no pharyngeal erythema or exudate Cardiovascular: regular rate and rhythm, normal peripheral perfusion Respiratory: Lungs CTA, respirations non labored Extremities: no deformity, no trauma Neurological: oriented x 4, LOC appropriate for age, CN II-XII intact, motor strength equal & normal bilaterally, speech normal Assessment/Plan 1. Hypertension (I10: Essential (primary) hypertension) pt presents today for BP follow up. We stopped her metoprolol and started losartan. will do labs at next visit because pt is not fasting today. Systolic BP's are running 130-200's diastolic 60-80's. Pt has been taking medication before bed. she has noticed that BP is much higher in the evenings. will order dose to be taken BID. pt will continue to monitor BP and return to office in 1 month. Ordered: losartan, 25 mg = 1 tab(s), Oral, BID, X 30 day(s), # 60 tab(s), Refills(s) 1, [id number] 166, cm, 01/05/23 10:05:00 EDT, Height/Length Dosing, 85.2, kg, 01/05/23 10:05:00 EDT, Weight Dosing losartan, 25 mg = 1 tab(s), Oral, Daily, # 30 tab(s), Refills(s) 1, Pharmacy: [id number], 166, cm, 12/08/22 13:42:00 EDT, Height/Length Dosing, 85, kg, 12/08/22 13:42:00 EDT, Weight Dosing CBC w/ Auto Diff Comprehensive Metabolic Panel Lipid Panel Thyroid Stimulating Hormone 2. Fatigue (R53.83: Other fatigue) will draw labs at next visit 3. BMI 30.0-30.9,adult (Z68.30: Body mass index [BMI] 30.0-30.9, adult) BMI education complete Ordered: CBC w/ Auto Diff Comprehensive Metabolic Panel Lipid Panel Thyroid Stimulating Hormone Non-smoker, (Z78.9: Other specified health status)Non-smoker continue not smoking Ordered: losartan, 25 mg = 1 tab(s), Oral, BID, X 30 day(s), # 60 tab(s), Refills(s) 1, Pharmacy: [id number], 166, cm, 01/05/23 10:05:00 EDT, Height/Length Dosing, 85.2, kg, 01/05/23 10:05:00 EDT, Weight Dosing losartan, 25 mg = 1 tab(s), Oral, Daily, # 30 tab(s), Refills(s) 1, Pharmacy: [id number], 166, cm, 12/08/22 13:42:00 EDT, Height/Length Dosing, 85, kg, 12/08/22 13:42:00 EDT, Weight Dosing Follow-up No qualifying data available Problem List/Past Medical History Ongoing Allergic rhinitis, seasonal Asthma BMI 30.0-30.9,adult Change in bowel habits Chronic UTI Diverticulosis Fatigue GERD (gastroesophageal reflux disease) HTN (hypertension) Migraines Osteoporosis Personal history of colonic polyps Vitamin D deficiency Historical No qualifying data Procedure/Surgical History Cataract extraction and insertion of intraocular lens (05/14/2020), Cataract extraction and insertion of intraocular lens (04/30/2020), Colonoscopy (11/25/2016), Colonoscopy (10/11/2013), Colonoscopy (09/28/2012), Appendectomy, Arthroplasty of knee, Cervical polypectomy, Cholecystectomy, Cystoscopy, Urethral dilatation. Medications albuterol, NEB, q4hr, PRN alendronate 70 mg Tab, 70 mg= 1 tab(s), Oral, qWeek calcium (as carbonate) 600 mg oral tablet, 600 mg= 1 tab(s), Oral, Daily Celebrate Multivitamin oral capsule, 1 cap(s), Oral, Daily Colestid 1 g oral tablet, 1 gm= 1 tab(s), Oral, qAM losartan 25 mg Tab, 25 mg= 1 tab(s), Oral, BID, 1 refills Misc Medication, Daily Nature's Bounty Red Krill Oil, 500 mg, Oral, Daily Vitamin D3, 50 mcg, Oral, Daily Allergies cefuroxime (Syncope and collapse, Itch) amitriptyline (Unknown) Social History Alcohol - Low Risk, 12/01/2022 Wine, 1-2 times per year, 1 drinks/episode average. 2.00 drinks/episode maximum. Household alcohol concerns: No., 12/01/2022 Substance Abuse - Denies Substance Abuse, 04/08/2021 Tobacco Never (less than 100 in lifetime) Tobacco Use:. Never Smokeless Tobacco Use:. Household tobacco concerns: No., 01/05/2023 Family History Cardia (more content not included)... Normal [facility] Comment on above: Result Comment: Elec tronically Signed By: Sabina Ruth\.tato\Date and Time Signed: 01/05/23 12:40 EDT Patient Logson 01-05-2023 Patient Logs [id number]# 1.00CD:127 Normal [facility] Dexa Scanson 12-24-2022 Dexa Scans [id number]# 1.00CD:127 Normal [facility] Dexa Scans [id number]# 1.00CD:127 Normal [facility] Outside Mammographyon 2022 Outside Mammography [id number]# 1.00CD:127 Normal [facility] Ambulatory Visit Summaryon 0 12-08-2022 Ambulatory Visit Summary NORI PRESTON :1940 Visit Date:12/08/2022 Ambulatory Visit Instructions Your Diagnosis HTN (hypertension), Hypertension BMI 31.0-31.9,adult Non-smoker Your Care Team Attending Physician - Sabina Ruth Primary Care Physician - Sabina Ruth This Is Your Medications List Non-Formulary Medication (Misc Medication) albuterol alendronate (alendronate 70 mg Tab) calcium carbonate (calcium (as carbonate) 600 mg oral tablet) cholecalciferol (Vitamin D3) colestipol (Colestid 1 g oral tablet) losartan (losartan 25 mg Tab) multivitamin with minerals (Celebrate Multivitamin oral capsule) omega-3 polyunsaturated fatty acids (Nature's Bounty Red Krill Oil) [Image Removed: STOP]Stop taking these medications metoprolol (metoprolol 50 mg ER Tab) Procedures Performed Cataract extraction and insertion of intraocular lens (05/14/2020), Cataract extraction and insertion of intraocular lens (04/30/2020), Colonoscopy (11/25/2016), Colonoscopy (10/11/2013), Colonoscopy (09/28/2012), Appendectomy, Arthroplasty of knee, Cervical polypectomy, Cholecystectomy, Cystoscopy, Urethral dilatation. Discharge Vitals Heart Rate (Peripheral) 64 Respiratory Rate 18 Blood Pressure 164/80 Height 166 cm Height 65 in Weight 85.00 kg Weight 187 lb BMI 30.85 What to do next Scheduled Follow-Up Appointments Wednesday 10:00 AM EDT With: Sabina Ruth Where: [facility] [address] [place] [address]- \.br\ Medications\.br\ What How Much When Why Instructions\.br\ New losartan (losartan 25 mg Tab) 1 Tablets By Mouth Every day BMI 31.0-31.9,adult Non-smoker Hypertension Refills: 1 Pickup at [facility] #[id number]\.br\ Unchanged albuterol Nebulized inhalation (aerosol) Every 4 hours as needed for Allergy symptoms\.br\ Unchanged alendronate (alendronate 70 mg Tab) 1 Tablets By Mouth Every week\.br\ Unchanged calcium carbonate (calcium (as carbonate) 600 mg oral tablet) 1 Tablets By Mouth Every day\.br\ Unchanged cholecalciferol (Vitamin D3) 50 Microgram By Mouth Every day\.br\ Unchanged colestipol (Colestid 1 g oral tablet) 1 Tablets By Mouth Once a day (in the morning)\.br\ Unchanged multivitamin with minerals (Celebrate Multivitamin oral capsule) 1 Capsules By Mouth Every day\.br\ Unchanged Non-Formulary Medication (Misc Medication) Every day\.br\ Unchanged omega-3 polyunsaturated fatty acids ([employer] Red Krill Oil) 500 Milligram By Mouth Every day\.br\ Pharmacy Information\.br\ [facility] #[id number]: [address], [place] [phone]\.br\ \.br\ What How Much When Comments\.br\ Stop Taking metoprolol (metoprolol 50 mg ER Tab) 1 Tablets By Mouth Every day\.br\ Allergies\.br\ cefuroxime (Syncope and collapse, Itch)\.br\ amitriptyline (Unknown)\.br\ Problems\.br\ Ongoing - Any problem that you are currently receiving treatment for.\.br\ Allergic rhinitis, seasonal\.br\ Asthma\.br\ BMI 30.0-30.9,adult\.br\ Change in bowel habits\.br\ Chronic UTI\.br\ Diverticulosis\.br\ GERD (gastroesophageal reflux disease)\.br\ HTN (hypertension)\.br\ Migraines\.br\ Osteoporosis\.br\ Personal history of colonic polyps\.br\ Vitamin D deficiency\.br\ \.br\ [facility] Family Medicine Office/Clini c Noteon 12-08-2022 Family Medicine Office/Clinic Note HPI Staff Nori is a 82 year old female presenting to establish care Establish Care: History: Any previous diagnosis: Asthma, Chronic UTI, Gerd, HTN, Migraines, Osteoporosis, Vitamin D Deficiency History of seeing any specialist: [employer] Dr Aparicio When was your last doctors visit: Last provider: Dr Freedman Any recent labs:12/12/2021 Health Maintenance UTD: Colonoscopy:09/25/19 22- follow up in 5 years Mammogram: Dec 19 2021 Pelvic/Pap: aged out Dexa: has order for one Acute: Current issues/complaints: pt would like to discuss Metoprolol pt states he started taking half tablet for 2 weeks due to her feeling tired all the time. pt was monitoring blood pressures at home and was stable but within the last week she has been checking and blood pressure is creeping back up. Since cutting the dose in half she states she does feel better and doesn't feel as tired. History of Present Illness pt presents today to establish care. she would like to discuss BP and meds Review of Systems PHQ Score Initial Depression Screen Score: 0 ROS - Provider Constitutional: no fever, no chills, no sweats, no fatigue Respiratory: no shortness of breath, no cough, no orthopnea, no wheezing. Cardiovascular: no chest pain, no palpitations, no edema. Neurologic: no headache, no dizziness, no numbness, no weakness. Physical Exam Vitals & Measurements HR: 64(Peripheral) RR: 18 BP: 164/80 SpO2: 93% HT: 65 in HT: 166 cm WT: 85.00 kg WT: 187 lb BMI: 30.85 General: alert, no acute distress ENMT: oral mucosa moist, no pharyngeal erythema or exudate Cardiovascular: regular rate and rhythm, normal peripheral perfusion Respiratory: Lungs CTA, respirations non labored Extremities: no deformity, no trauma Neurological: oriented x 4, LOC appropriate for age, CN II-XII intact, motor strength equal & normal bilaterally, speech normal Assessment/Plan 1. HTN (hypertension), (I10: Essential (primary) hypertension)Hyperte nsion pt presents today to discuss BP and meds. she was taking 50mg of metoprolol and was very fatigued. pt states he pulse was running in the 50's. she decided to decrease to 25mg. She states her pulse started to rise, she felt better but her BP started creeping up to. BP is elevated in office today. BP log reviewed. will d/c metoprolol and start losartan. pt to take BP at home and bring log to next visit. pt encouraged to call office if BP is running too high or too low. Pt is due for annual lab work after 12/12. will do annual lab work at next visit. RTC 4 weeks. Ordered: losartan, 25 mg = 1 tab(s), Oral, Daily, # 30 tab(s), Refills(s) 1, [facility]: [id number], 166, cm, 12/08/22 13:42:00 EDT, Height/Length Dosing, 85, kg, 12/08/22 13:42:00 EDT, Weight Dosing 2. BMI 31.0-31.9,adult (Z68.31: Body mass index [BMI] 31.0-31.9, adult) BMI education complete Ordered: losartan, 25 mg = 1 tab(s), Oral, Daily, # 30 tab(s), Refills(s) 1, Pharmacy: [id number], 166, cm, 12/08/22 13:42:00 EDT, Height/Length Dosing, 85, kg, 12/08/22 13:42:00 EDT, Weight Dosing Body Mass Index (BMI) documented 3008F Current tobacco non-user 1036F Depression Screening Negative 3352F Fall Risk Screen 2 or more w/injury 1100F Most recent diastolic blood pressure 80-89 mm Hg 3079F Most recent systolic blood pressure >= 140 mm Hg 3077F Screening mammography documented and reviewed 3014F 3. Non-smoker (Z78.9: Other specified health status) continue not smoking Ordered: losartan, 25 mg = 1 tab(s), Oral, Daily, # 30 tab(s), Refills(s) 1, Pharmacy: [id number], 166, cm, 12/08/22 13:42:00 EDT, Height/Length Dosing, 85, kg, 12/08/22 13:42:00 EDT, Weight Dosing Body Mass Index (BMI) documented 3008F Current tobacco non-user 1036F Depression Screening Negative 3352F Fall Risk Screen 2 or more w/injury 1100F Most recent diastolic blood pressure 80-89 mm Hg 3079F Most recent systolic blood pressure >= 140 mm Hg 3077F Screening mammography documented and reviewed 3014F Follow-up No qualifying data available Problem List/Past Medical History Ongoing Allergic rhinitis, seasonal Asthma BMI 30.0-30.9,adult Change in bowel habits Chronic UTI Diverticulosis GERD (gastroesophageal reflux disease) HTN (hypertension) Migraines Osteoporosis Personal history of colonic polyps Vitamin D deficiency Historical No qualifying data Procedure/Surgical History Cataract extraction and insertion of intraocular lens (05/14/2020), Cataract extraction and insertion of intraocular lens (04/30/2020), Colonoscopy (11/25/2016), Colonoscopy (10/11/2013), Colonoscopy (09/28/2012), Appendectomy, Arthroplasty of knee, Cervical polypectomy, Cholecystectomy, Cystoscopy, Urethral dilatation. Medications albuterol, NEB, q4hr, PRN alendronate 70 mg Tab, 70 mg= 1 tab(s), Oral, qWeek calcium (as carbonate) 600 mg oral tablet, 600 mg= 1 tab(s), Oral, Daily Celebrate Multivitamin oral capsule, 1 cap(s), Oral, Daily (more content not included)... Normal [facility] Comment on above: Result Comment: Elec tronically Signed By: Sabina Ruth\.br\Date and Time Signed: 12/08/22 14:10 EDT Orthopedic Office/Clinic Not otilio 05-06-2022 Orthopedic Office/Clinic Note Chief Complaint Patient here for yearly bilateral knee TKR. Right- 05/22/19. Left- 03/25/20. States is doing well with no issues. XR today BVO. History of Present Illness 81-year-old white female follow-up 2 years status post left total knee arthroplasty and 3 years status post right total knee arthroplasty. She reports no problems. She is utilizing dental prophylaxis. Review of Systems Constitutional Head Nose Mouth Throat Cardio/Respiratory Hematologic Chills: No Headache: No Shortness of Breath: No History of DVT: No Fever: No Sore Throat: No Chest Pain: No History of Claudication: No Ear Pain: No Palpitation: No History of Aneurysm: No History of Gangrene: No Genitourinary Musculoskeletal Psychiatric Vascular Burning: No Muscle Weakness: No Anxiety: No Blood Disorder: No Pain: No Joint Pain: No Depression: No Numbness: No Gastrointestinal Dermatology Rheumatologic Problems: No Rash: No History of Rheumatic Arthritis: No Pain: No Pruritus: No History of Gout: No History of Lupus: No Physical Exam Vitals & Measurements HR: 64 (Peripheral) BP: 184/73 HT: 170 cm WT: 85 kg WT: 85 kg (Dosing) BMI: 29.41 Range of motion demonstrates full extension 120 degrees flexion bilaterally. Good patellar tracking. Normal gait without limp. Additional Vitals BP Position/Location: Sitting, Left arm Assessment/Plan 1. Aftercare following joint replacement 2. History of total bilateral knee replacement (TKR) Doing well status post total knee arthroplasty. Risks, benefits, and alternatives discussed with patient today and appears to be doing well. Restrictions/precaut ions reinforced. Dental prophylaxis policy also reinforced. Recommend yearly follow-ups with x-rays to rule out loosening or polyethylene wear. All questions are answered to the patient's satisfaction today. Medical Decision Making Chronic conditions NOT treated during this visit that affected my overall medical decision making: [] Treatment plans discussed but not opted for at this time: [] Prescribed medication that requires intensive monitoring for toxicity: [] I have reviewed the patient?s medication list for medication interactions/contrai ndications and/or for upcoming procedures: [yes or no] Time Spent with the Patient I have personally spent [16] minutes on this date, directly related to today's patient visit, including pre and post visit work, for this date of service. Time listed does not include time spent on separately billable services. 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) Arthroplasty Knee Total Replacement - 4 in 1 (Right) (05/22/2019) Arthroplasty Knee Total Replacement - 4 in 1 (Left) (03/25/2020) Left total knee replacement (03/25/2020) Left eye cataract extraction (04/30/2020) Medications alendronate 70 mg oral tablet, 70 mg= 1 tabs, Oral, Weekly Calcium 600+D oral tablet, 1 tabs, Oral, Daily colestipol 1 g oral tablet, 1 g= 1 tabs, Oral, BID ketorolac 0.5% ophthalmic solution, 1 drops, Eye-Both, QID Metoprolol Succinate ER 25 mg oral tablet, extended release multivitamin, 1 tabs, Oral, Daily ofloxacin 0.3% ophthalmic solution, 1 drops, Eye-Both, BID Pred Forte 1% ophthalmic suspension, 1 drops, Eye-Both, TID Vitamin D3, 25 mcg, Oral, BID Allergies No Known Medication Allergies Social History Alcohol Never Employment/School Retired Exercise Home/Environment Lives with Spouse. Living situation: Home/Independent. , Home equipment: Walker/Cane. NONE Nutrition/Health Regular, Caffeine intake amount: 2-3 CUPS COFFEE DAILY. Substance Abuse Denies All Tobacco Never (less than 100 in lifetime) Use:. Family History Cancer of colon: Father. Diagnostic Results XR Knee 1 or 2 Views Bilateral 05/06/22 10:16:50 IMPRESSION: Status post bilateral total knee arthroplasty with normal tibiofemoral alignment and no evidence of any significant periprosthetic lucencies or polyethylene wear. Patellofemoral alignment appears appropriate from AP and lateral images. jjd Signed By: Zheng Bojorquez MD Electronically signed by Zheng Bojorquez MD 05/06/22 10:34 EST Normal [facility] XR Knee 1 or 2 Views Bilater sugey 05-06-2022 XR Knee 1 or 2 Views Bilateral _EXAM: Standing 2 views bilateral knees IMPRESSION: Status post bilateral total knee arthroplasty with normal tibiofemoral alignment and no evidence of any significant periprosthetic lucencies or polyethylene wear. Patellofemoral alignment appears appropriate from AP and lateral images. jjd Final Signed by: Zheng Bojorquez MD Signed (Electronic Signature): 05/06/2022 10:18 am Transcribed DT/TM: 05/06/2022 10:18 (If Report Is Signed, Electronically Signed in Other Vendor System) Normal [facility] MG MAMM SCREEN 3D JAMES CADon 12-19-2021 MG MAMM SCREEN 3D JAMES CAD Patient: NORI PRESTON Exam Date: 12/19/2021 : 1940 Gender:F Ordering : DR MAGO FREEDMAN . Admission #: [id number] Family : Order #: [id number] CLICK HERE TO VIEW EXAM RADIOLOGY REPORT PROCEDURE: MAMMOGRAM SCREENING 3D BILATERAL CAD COMPARISON: MG MAMM SCREEN 3D JAMES CAD, 09/17/2020. INDICATIONS: Screening mammography Calculator Name NCI Breast Cancer Risk Assessment Tool 5 Year Breast Cancer Risk 1.50% Lifetime Breast Cancer Risk 2.50% Personal Breast Cancer No Personal Ovarian Cancer No Treatments None Family Cancers Cousin-paternal with breast cancer at age 68; Father with colon cancer at age 67. LOCATION: [facility] BREAST COMPOSITION: Extremely dense, which lowers the sensitivity of mammography. FINDINGS: DIAGNOSTIC CATEGORY 2--BENIGN FINDING. NO CHANGE FROM COMPARISON. Scattered benign-appearing nodules are present. Scattered benign-appearing calcifications are present. Scattered benign-appearing lymph nodes are present. RIGHT BREAST: No significant suspicious finding. LEFT BREAST: No significant suspicious finding. RECOMMENDATIONS: ROUTINE MAMMOGRAM AND CLINICAL EVALUATION IN 12 MONTHS. PLEASE NOTE: A NORMAL MAMMOGRAM DOES NOT EXCLUDE THE POSSIBILITY OF BREAST CANCER. A CLINICALLY SUSPICIOUS PALPABLE LUMP SHOULD BE BIOPSIED. Dictated by: Bernard Reza MD on 12/19/2021 at 13:44 Approved by: Bernard Reza MD on 12/19/2021 at 13:46 Normal [facility] CBC AUTO DIFFon 12-12-2021 BASO # 0.0 103/ul Normal 0.0-0.1 [facility] Comment on above: Performed By: #### C BC #### [facility] [address] [place] [address] Dr. Kaiser García Basophils/100 WBC (Bld) 0.3 % Normal 0.2-2.0 [facility] Comment on above: Performed By: #### C BC #### [facility] [address] [address] [address] Kaiser García EO # 0.1 103/ul Normal 0.0-0.7 [facility] Comment on above: Performed By: #### C BC #### [facility] [address] [place] [address] Dr. Kaiser García Eosinophils/100 WBC (Bld) 1.9 % Normal 0.9-7.0 [facility] Comment on above: Performed By: #### C BC #### [facility] [address] [place] [address] Dr. Kaiser García Erythrocyte distribution width (RBC) [Ratio] 13.9 % Normal 11.0-15.0 [facility] Comment on above: Performed By: #### C BC #### [facility] [address] [place] [address] Dr. Kaiser García Hematocrit (Bld) [Volume fraction] 38.5 % Normal 36.0-48.0 [facility] Comment on above: Performed By: #### C BC #### [facility] [address] [place] [address] Dr. Kaiser García Hemoglobin (Bld) [Mass/Vol] 12.0 g/dL Normal 12.0-16.0 [facility] Comment on above: Performed By: #### C BC #### [facility] [address] [place] [address] Dr. Kaiser García IG # 0.03 10e3/ul Normal 0.00-0.03 [facility] Comment on above: Performed By: #### C BC #### [facility] [address] [place] [address] Dr. Kaiser García IG % 0.4 % Normal 0.0-0.5 [facility] Comment on above: Performed By: #### C BC #### [facility] [address] [place] [address] Dr. Kaiser García LYMPH # 2.5 103/ul Normal 1.2-3.8 [facility] Comment on above: Performed By: #### C BC #### [facility] [address] [place] [address] Dr. Kaiser García Lymphocytes/100 WBC (Bld) 35.7 % Normal 20.5-60.0 [facility] Comment on above: Performed By: #### C BC #### [facility] [address] [place] [address] Dr. Kaiser Garíca MANUAL DIFF REQ NO Normal [facility] Comment on above: Performed By: #### C BC #### [facility] [address] [address] [address] Kaiser García MCH (RBC) [Entitic mass] 28.5 pg Normal 26.7-34.0 [facility] Comment on above: Performed By: #### C BC #### [facility] [address] [place] [address] Dr. Kaiser García MCHC (RBC) [Mass/Vol] 31.2 g/dL Normal 29.9-35.2 [facility] Comment on above: Performed By: #### C BC #### [facility] [address] [place] [address] Dr. Kaiser García MCV (RBC) [Entitic vol] 91.4 fL Normal 81.0-99.0 [facility] Comment on above: Performed By: #### C BC #### [facility] [address] [place] [address] Dr. Kaiser García MONO # 0.6 103/ul Normal 0.3-0.8 [facility] Comment on above: Performed By: #### C BC #### [facility] [address] [place] [address] Dr. Kaiser Garcaí Monocytes/100 WBC (Bld) 8.7 % Normal 1.7-12.0 [facility] Comment on above: Performed By: #### C BC #### [facility] [address] [place] [address] Dr. Kaiser García NEUT # 3.7 103/ul Normal 1.4-6.5 [facility] Comment on above: Performed By: #### C BC #### [facility] [address] [place] [address] Dr. Kaiser García Neutrophils/100 WBC (Bld) 53.0 % Normal 43.0-75.0 [facility] Comment on above: Performed By: #### C BC #### [facility] [address] [place] [address] Dr. Kaiser García Platelet mean volume (Bld) [Entitic vol] 9.4 fL Critically low 9.5-13.5 [facility] Comment on above: Performed By: #### C BC #### [facility] [address] [address] [address] Kaiser García PLT 244 103/ul Normal 150-450 [facility] Comment on above: Performed By: #### C BC #### [facility] [address] [address] [address] Kaiser García RBC 4.21 106/ul Normal 4.20-5.40 [facility] Comment on above: Performed By: #### C BC #### [facility] [address] [address] [address] Kaiser García WBC 6.9 103/ul Normal 4.0-11.0 [facility] Comment on above: Performed By: #### C BC #### [facility] [address] [address] [address] Kaiser García PROF 14(COMP METB)on 022 Albumin [Mass/Vol] 3.6 g/dL Normal 3.4-5.0 [facility] Comment on above: Performed By: #### C MP, TSH ####[facility] [address] [address]Dr. Kaiser García Albumin/Globulin [Mass ratio] 1.1 {ratio} Normal [facility] Comment on above: Performed By: #### C MP, TSH ####[facility] [address] [address]Dr. Kaiser García ALP [Catalytic activity/Vol] 51 U/L Normal 46-116 [facility] Comment on above: Performed By: #### C MP, TSH ####[facility] [address] [address]Dr[address] Kaiser García ALT [Catalytic activity/Vol] 19 U/L Normal 14-59 [facility] Comment on above: Performed By: #### C MP, TSH ####[facility] [address] [address]Dr. Kaiser García Anion gap [Moles/Vol] 11.6 mmol/L Normal [facility] Comment on above: Performed By: #### C MP, TSH ####[facility] [address] [address]Dr. Kaiser García AST [Catalytic activity/Vol] 14 U/L Critically low 15-37 [facility] Comment on above: Performed By: #### C MP, TSH ####[facility] [address] [address]Dr. Kaiser García Bilirubin [Mass/Vol] 0.3 mg/dL Normal 0.2-1.0 [facility] Comment on above: Performed By: #### C MP, TSH ####[facility] [address] [address]Dr. Kaiser García Calcium [Mass/Vol] 9.0 mg/dL Normal 8.5-10.1 [facility] Comment on above: Performed By: #### C MP, TSH ####[facility] [address] [place], [place] [address]Dr. Kaiser García Chloride [Moles/Vol] 104 mmol/L Normal 98-107 [facility] Comment on above: Performed By: #### C MP, TSH ####[facility] [address] [place], [place] [address]Dr. Kaiser García CO2 [Moles/Vol] 28.4 mmol/L Normal 21.0-32.0 [facility] Comment on above: Performed By: #### C MP, TSH ####[facility] [address] [place], [place] [address]Dr. Kaiser García Creatinine [Mass/Vol] 0.73 mg/dL Normal 0.55-1.02 [facility] Comment on above: Performed By: #### C MP, TSH ####[facility] [address] [address]Dr. Kaiser García EGFR-AF ANDORRAN >60 Normal >=60 [facility] Comment on above: Performed By: #### C MP, TSH ####[facility] [address] [address]Dr. Kaiser García EGFR-NON AF ANDORRAN >60 Normal >=60 [facility] Comment on above: Performed By: #### C MP, TSH ####[facility] [address] [address]Dr. Kaiser García Globulin (S) [Mass/Vol] 3.4 g/dL Normal [facility] Comment on above: Performed By: #### C MP, TSH ####[facility] [address] [address]Dr. Kaiser García Glucose [Mass/Vol] 73 mg/dL Critically low 74-106 [facility] Comment on above: Performed By: #### C MP, TSH ####[facility] [address] [address]Dr. Kaiser García Potassium [Moles/Vol] 4.0 mmol/L Normal 3.5-5.1 [facility] Comment on above: Performed By: #### C MP, TSH ####[facility] [address] [place], [place] [address]Dr. Kaiser García Protein [Mass/Vol] 7.0 g/dL Normal 6.4-8.2 [facility] Comment on above: Performed By: #### C MP, TSH ####[facility] [address] [place], [place] [address]Dr. Kaiser García Sodium [Moles/Vol] 140 mmol/L Normal 136-145 [facility] Comment on above: Performed By: #### C MP, TSH ####[facility] [address] [place], [place] [address]Dr. Kaiser García Urea nitrogen [Mass/Vol] 23.0 mg/dL Critically high 7.0-18.0 [facility] Comment on above: Performed By: #### C MP, TSH ####[facility] [address] [place], [place] [address]Dr. Kaiser García Urea nitrogen/Creatinine [Mass ratio] 31.5 mg/mg Normal [facility] Comment on above: Performed By: #### C MP, TSH ####[facility] [address] [place], [place] [address]Dr. Kaiser García TSHon 12-12-2021 TSH 1.112 uIU/mL Normal 0.358-3.740 [facility] Comment on above: Performed By: #### C MP, [facility] ####[facility] [address] [id number]. Kaiser García XR CHEST 1 Von 12-04-2021 XR CHEST 1 V EXAM: XR CHEST 1 V HISTORY: SHORTNESS OF BREATH COMPARISON: Chest radiographs dated 07/22/2021. TECHNIQUE: One view of the chest was obtained. FINDINGS: The cardiac silhouette is enlarged though stable in size. Aortic atherosclerotic disease is seen. There are calcified left hilar lymph nodes. Calcified granulomas are seen in the left lung. There is no significant pneumothorax or pleural effusion. No acute osseous abnormality is seen. IMPRESSION: 1. Stable enlarged cardiac silhouette with clear lungs. Electronically authenticated by: Mesfin LIZ Date: 2021-12-03 23:19 Normal [facility] CBC AUTO DIFFon 12-03-2021 BASO # 0.0 103/ul Normal 0.0-0.1 [facility] Comment on above: Performed By: #### C BC #### [facility] [address] [address] [address] Kaiser García Basophils/100 WBC (Bld) 0.3 % Normal 0.2-2.0 [facility] Comment on above: Performed By: #### C BC #### [facility] [address] [address] [address] Kaiser García EO # 0.1 103/ul Normal 0.0-0.7 [facility] Comment on above: Performed By: #### C BC #### [facility] [address] [address] [address] Kaiser García Eosinophils/100 WBC (Bld) 1.0 % Normal 0.9-7.0 [facility] Comment on above: Performed By: #### C BC #### [facility] [address] [address] [address] Kaiser García Erythrocyte distribution width (RBC) [Ratio] 13.8 % Normal 11.0-15.0 [facility] Comment on above: Performed By: #### C BC #### [facility] [address] [place] [address] Dr. Kaiser García Hematocrit (Bld) [Volume fraction] 38.5 % Normal 36.0-48.0 [facility] Comment on above: Performed By: #### C BC #### [facility] [address] [place] [address] Dr. Kaiser García Hemoglobin (Bld) [Mass/Vol] 12.4 g/dL Normal 12.0-16.0 [facility] Comment on above: Performed By: #### C BC #### [facility] [address] [place] [address] Dr. Kaiser García IG # 0.01 10e3/ul Normal 0.00-0.03 [facility] Comment on above: Performed By: #### C BC #### [facility] [address] [place] [address] Dr. Kaiser García IG % 0.2 % Normal 0.0-0.5 [facility] Comment on above: Performed By: #### C BC #### [facility] [address] [place] [address] Dr. Kaiser García LYMPH # 2.0 103/ul Normal 1.2-3.8 [facility] Comment on above: Performed By: #### C BC #### [facility] [address] [place] [address] Dr. Kaiser García Lymphocytes/100 WBC (Bld) 32.4 % Normal 20.5-60.0 [facility] Comment on above: Performed By: #### C BC #### [facility] [address] [place] [address] Dr. Kaiser García MANUAL DIFF REQ NO Normal [facility] Comment on above: Performed By: #### C BC #### [facility] [address] [place] [address] Dr. Kaiser García MCH (RBC) [Entitic mass] 28.8 pg Normal 26.7-34.0 [facility] Comment on above: Performed By: #### C BC #### [facility] [address] [place] [address] Dr. Kaiser García MCHC (RBC) [Mass/Vol] 32.2 g/dL Normal 29.9-35.2 [facility] Comment on above: Performed By: #### C BC #### [facility] [address] [place] [address] Dr. Kaiser García MCV (RBC) [Entitic vol] 89.3 fL Normal 81.0-99.0 [facility] Comment on above: Performed By: #### C BC #### [facility] [address] [place] [address] Dr. Kaiser García MONO # 0.3 103/ul Normal 0.3-0.8 [facility] Comment on above: Performed By: #### C BC #### [facility] [address] [place] [address] Dr. Kaiser García Monocytes/100 WBC (Bld) 4.2 % Normal 1.7-12.0 [facility] Comment on above: Performed By: #### C BC #### [facility] [address] [place] [address] Dr. Kaiser García NEUT # 3.9 103/ul Normal 1.4-6.5 [facility] Comment on above: Performed By: #### C BC #### [facility] [address] [place] [address] Dr. Kaiser García Neutrophils/100 WBC (Bld) 61.9 % Normal 43.0-75.0 [facility] Comment on above: Performed By: #### C BC #### [facility] [address] [place] [address] Dr. Kaiser García Platelet mean volume (Bld) [Entitic vol] 10.1 fL Normal 9.5-13.5 [facility] Comment on above: Performed By: #### C BC #### [facility] [address] [place] [address] Dr. Kaiser García PLT 175 103/ul Normal 150-450 [facility] Comment on above: Performed By: #### C BC #### [facility] [address] [place] [address] Dr. Kaiser García RBC 4.31 106/ul Normal 4.20-5.40 [facility] Comment on above: Performed By: #### C BC #### [facility] [address] [address] [address] Kaiser García WBC 6.2 103/ul Normal 4.0-11.0 [facility] Comment on above: Performed By: #### C BC #### [facility] [address] [place] [address] Dr. Kaiser García PROF 14(COMP METB)on 022 Albumin [Mass/Vol] 3.6 g/dL Normal 3.4-5.0 [facility] Comment on above: Performed By: #### H STROPN, CMP #### [facility] [address] [place] [address] Dr. Kaiser García Albumin/Globulin [Mass ratio] 1.0 {ratio} Normal [facility] Comment on above: Performed By: #### H STROPN, CMP #### [facility] [address] [place] [address] Dr. Kaiser García ALP [Catalytic activity/Vol] 54 U/L Normal 46-116 [facility] Comment on above: Performed By: #### H STROPN, CMP #### [facility] [address] [place] [address] Dr. Kaiser García ALT [Catalytic activity/Vol] 17 U/L Normal 14-59 [facility] Comment on above: Performed By: #### H JAMIRPN, CMP #### [facility] [address] [place] [address] Dr. Kaiser García Anion gap [Moles/Vol] 15.4 mmol/L Normal [facility] Comment on above: Performed By: #### H STROPN, CMP #### [facility] [address] [place] [address] Dr. Kaiser García AST [Catalytic activity/Vol] 21 U/L Normal 15-37 [facility] Comment on above: Performed By: #### H STROPN, CMP #### [facility] [address] [place] [address] Dr. Kaiser García Bilirubin [Mass/Vol] 0.4 mg/dL Normal 0.2-1.0 [facility] Comment on above: Performed By: #### H STROPN, CMP #### [facility] [address] [place] [address] Dr. Kaiser García Calcium [Mass/Vol] 9.1 mg/dL Normal 8.5-10.1 [facility] Comment on above: Performed By: #### H STROPN, CMP #### [facility] [address] [place] [address] Dr. Kaiser García Chloride [Moles/Vol] 101 mmol/L Normal 98-107 [facility] Comment on above: Performed By: #### H STROPN, CMP #### [facility] [address] [place] [address] Dr. Kaiser García CO2 [Moles/Vol] 22.4 mmol/L Normal 21.0-32.0 [facility] Comment on above: Performed By: #### H STROPN, CMP #### [facility] [address] [place] [address] Dr. Kaiser García Creatinine [Mass/Vol] 1.19 mg/dL Critically high 0.55-1.02 [facility] Comment on above: Performed By: #### H STROPN, CMP #### [facility] [address] [place] [address] Dr. Kaiser García EGFR-AF ANDORRAN 53 mL/min/1.73m2 Critically low >=60 [facility] Comment on above: Performed By: #### H STROPN, CMP #### [facility] [address] [place] [address] Dr. Kaiser Garíca EGFR-NON AF ANDORRAN 44 mL/min/1.73m2 Critically low >=60 [facility] Comment on above: Performed By: #### H STROPN, CMP #### [facility] [address] [place] [address] Dr. Kaiser García Globulin (S) [Mass/Vol] 3.5 g/dL Normal [facility] Comment on above: Performed By: #### H STROPN, CMP #### [facility] [address] [place] [address] Dr. Kaiser García Glucose [Mass/Vol] 220 mg/dL Critically high 74-106 [facility] Comment on above: Performed By: #### H DEEPALI, CMP #### [facility] [address] [address] [address] Kaiser García Potassium [Moles/Vol] 3.8 mmol/L Normal 3.5-5.1 [facility] Comment on above: Performed By: #### H DEEPALI, CMP #### [facility] [address] [place] [address] Dr. Kaiser García Protein [Mass/Vol] 7.1 g/dL Normal 6.4-8.2 [facility] Comment on above: Performed By: #### H DEEPALI, CMP #### [facility] [address] [place] [address] Dr. Kaiser García Sodium [Moles/Vol] 135 mmol/L Critically low 136-145 [facility] Comment on above: Performed By: #### H DEEPALI, CMP #### [facility] [address] [place] [address] Dr. Kaiser García Urea nitrogen [Mass/Vol] 22.0 mg/dL Critically high 7.0-18.0 [facility] Comment on above: Performed By: #### H DEEPALI, CMP #### [facility] [address] [place] [id number] Dr[address] Kaiser García Urea nitrogen/Creatinine [Mass ratio] 18.5 mg/mg Normal [facility] Comment on above: Performed By: #### H DEEPALI, CMP #### [facility] [address] [place] [address] Dr. Kaiser García TROPONIN, HIGH SENSITIVITYon 12-03-2021 HSTROP 9.4 pg/mL Normal 4.0-51.3 [facility] Comment on above: Result Comment: CUT- OFF POINTS HAVE BEEN ESTABLISHED BASED ON THE FOURTH UNIVERSAL DEFINITIONS OF MYOCARDIAL INFARCTION. THE UPPER REFERENCE LIMIT (URL) OF TROPONIN, DEFINED THE 99TH PERCENTILE OF cTnI DISTRIBUTION IN A REFERENCE POPULATION, HAS BEEN CONFIRMED THE DECISION THRESHOLD FOR GA DIAGNOSIS. Performed By: #### H DEEPALI, CMP #### [facility] [address] [place] [id number] Kaiser García Covid-19 PCR (CVDTB)on 11-17 SARS-CoV-2 (COVID-19) RNA DANIEL+probe Ql (Unsp spec) Not detected Normal NOT DETECTED [facility] Comment on above: Result Comment: This test is not yet approved or cleared by the [place] FDA. When there are no FDA-approved or cleared tests available, and other criteria are met, FDA can make tests available under an emergency access mechanism called an Emergency Use Authorization (EUA). The EUA for this test is supported by the Pressure Steamer Tender of Health and Human Service's (HHS's) declaration that circumstances exist to justify the emergency use of in vitro diagnostics for the detection and/or diagnosis of the virus that causes COVID-19. This EUA will remain in effect (meaning this test can be used) for the duration of the COVID-19 declaration justifying emergency of IVDs, unless it is terminated or revoked by FDA (after which the test may no longer be used). When diagnostic testing is negative, the possibility of a false negative should be considered in the context of a patient's recent exposures and the presence of clinical signs and symptoms consistent with SARS-CoV-2. Performed By: #### [facility] #### [facility] [address] [place] [address] Dr. Kaiser García US ISABELLA DOP LEG LTon 10-18-19 22 US ISABELLA DOP LEG LT EXAMINATION: US ISABELLA DOP LEG LT HISTORY: Localized swelling of left lower limb COMPARISON: 04/01/2020 TECHNIQUE: Grayscale, color and Doppler ultrasound FINDINGS: Region: Left leg Thrombus: None Flow: Normal Compressibility: Normal Augmentation: Normal In the area the patient's pain a complex cystic structure is identified, upper medial calf measuring 12.7 x 2.0 x 7.2 cm. No definite color flow. IMPRESSION: No deep or superficial vein thrombus in the left leg 12.7 cm complex cystic mass corresponding to the patient's pain. Indeterminate. Possibly an intramuscular hematoma or seroma *Exam performed in accordance with AIUM practice guidelines- Peripheral venous ultrasound, July 13, 2009. Electronically authenticated by: BERNARD REZA Date: 2021-10-17 16:45 Normal [facility] Encounters Encounter Date Encounter Type Care Provider Facility Start: 12-07-2024 ambulatory WOOD CREW SUPERVISOR Sabina L Linda Facil ity:NOEMI Parra Start: 05-08-2024 ambulatory Mago Freedman MD Fa cility:[facility] Start: 02-24-2024 ambulatory WOOD CREW SUPERVISOR Sabina L Linda Facil ity: [facility]OL[facility] Parra Start: 12-24-2023 ambulatory WOOD CREW SUPERVISOR Sabina L Linda [facility] Start: 12-03-2023 End: 12-03-2023 ambulatory WOOD CREW SUPERVISOR Sabina L Linda Facility: N[facility]OLAI lockharte Start: 12-02-2023 End: 12-02-2023 ambulatory WOOD CREW SUPERVISOR Sabina L Linda Facility: [facility] lockharte Start: 10-18-2023 End: 10-18-2023 ambulatory CAPO H HANDY Not Available Start: 08-24-2023 End: 08-24-2023 Lab Drop off Sabina L Linda [facility] Start: 08-24-2023 End: 08-24-2023 ambulatory WOOD CREW SUPERVISOR Sabina L Linda [facility] Start: 08-12-2023 End: 08-12-2023 ambulatory CAPO H HANDY Not Available Start: 06-08-2023 End: 06-08-2023 ambulatory CAPO H HANDY Not Available Start: 04-01-2023 End: 04-01-2023 ambulatory CAPO H HANDY Not Available Start: 03-23-2023 End: 03-23-2023 ambulatory WOOD CREW SUPERVISOR Sabina L Linda Facility: [facility] Start: 03-16-2023 End: 03-16-2023 ambulatory WOOD CREW SUPERVISOR Sabina L Linda Facility: N[facility]OLAI Campbell ai Start: 02-02-2023 End: 02-02-2023 Lab Drop off Sabina L Linda [facility] Start: 02-02-2023 End: 02-02-2023 ambulatory WOOD CREW SUPERVISOR Sabina L Linda Facility[facility] Start: 01-05-2023 End: 01-05-2023 ambulatory WOOD CREW SUPERVISOR Sabina L Linda Facility:[facility] Start: 12-15-2022 ambulatory WOOD CREW SUPERVISOR Sabina Linda Facilit y:[facility] NIKOLAI Parra Start: 12-08-2022 End: 12-08-2022 ambulatory WOOD CREW SUPERVISOR Sabina L Linda Facility: [facility] Start: 06-05-2022 End: 06-18-[address] MAGO FREEDMAN . Facility:[facility] Start: 05-06-2022 End: 05-07-2022 ambulatory Mago Freedman MD Facility:[facility] Start: 12-24-2021 End: 12-24-[address] MAGO FREEDMAN . Facility:[facility] Start: 12-19-2021 End: 12-20-[address] MAGO FREEDMAN . Facility:[facility] Start: 12-12-2021 End: 12-13-[address] MAGO FREEDMAN . Facility:[facility] Start: 12-03-2021 End: 12-04-[address] ORVILLE HANDY Facility:[facility] Start: 12-02-2021 End: 12-02-[address] MAGO FREEDMAN . Facility:[facility] Start: 10-17-2021 End: 10-18-[address] MAGO FREEDMAN . Facility:[facility] Start: 09-24-2021 End: 09-24-[address] LAMAR SEXTON . Facility:[facility] Start: 09-20-[address] LAMAR SEXTON . Facil ity:[facility] Start: 08-20-2021 End: 08-20-[address] MAGO FREEDMAN . Facility:[facility] Procedures Date Procedure Procedure Detail Performing Clinician Start: 05-14-2020 Cataract extraction and insertion of intraocular lens Sabina Linda Start: 04-30-2020 Cataract extraction and insertion of intraocular lens Sabina Linda Start: 11-25-2016 Colonoscopy Sabina Schwa b Start: 10-11-2013 Colonoscopy Sabina Schwa b Start: 09-28-2012 Colonoscopy Sabina Schwa b Appendectomy Sabina Linda Arthroplasty of knee Sabina Sc hwab Comment on above: left Cervical polypectomy Sabina Sc hwab Cholecystectomy Sabina Linda Cystoscopy Sabina Linda Dilation of urethra Sabina Herbert wab Immunizations Immunization Date Immunization Notes Care Provider Fa cility 03-16-2023 SARS-CoV-2 mRNA (tozinameran 5y-11y) vaccine Sabina Linda [facility] Comment on above: Result Comment: covi d 19 vishal-sucrose 02-23-2022 SARS-CoV-2 (COVID-19 ) [id number] Sabina Linda [facility] 02-10-2022 influenza virus vaccine, unspecified formulation Sabina Linda [facility] 11-12-2021 SARS-CoV-2 mRNA (uouovwvochq-lqem-bkcph se) vaccine Sabina Linda [facility] 01-23-2021 SARS-CoV-2 (COVID-19 ) mRNA BNT-162b2 vax Sabina Linda [facility] Comment on above: Result Comment: 2022: [id number] 06-12-2020 SARS-CoV-2 (COVID-19 ) mRNA BNT-162b2 vax Sabina Linda [facility] Comment on above: Result Comment: 2022: [id number] 05-22-2020 SARS-CoV-2 (COVID-19 ) mRNA BNT-162b2 vax Sabina Linda [facility] Comment on above: Result Comment: 2022: [id number] 01-26-2020 influenza virus vaccine, unspecified formulation Sabina Linda [facility] 04-19-2019 pneumococcal conjuga te vaccine, 13 valent Sabina Linda [facility] 02-23-2019 influenza virus vaccine, unspecified formulation Sabina Linda [facility] 05-25-2018 pneumococcal polysaccharide vaccine, 23 valent Sabina Linda [facility] 02-15-2018 influenza virus vaccine, unspecified formulation Sabina Linda [facility] 02-24-2017 influenza virus vaccine, unspecified formulation Sabina Linda [facility] 03-06-2016 pneumococcal conjuga te vaccine, 13 valent Sabina Linda [facility] 02-20-2016 influenza virus vaccine, unspecified formulation Sabina Linda [facility] 02-20-2014 influenza virus vaccine, unspecified formulation Sabina Linda [facility] 02-22-2013 influenza virus vaccine, unspecified formulation Sabina Linda [facility] 03-06-2010 influenza virus vaccine, unspecified formulation Sabina Linda [facility] 02-05-2009 influenza, whole Sabina Linda [facility] NEGATED: Highlighted row has not occurred!07-01-2021 influenza virus vaccine, unspecified formulation Sabina Linda [facility] [place] Payers Date Payer Category Payer Medicare 2020 Unknown 1959 Medicare [id number] 1959 Unknown [id number] 1940 Unknown [id number] 2.16.84 0.1.112822.3.579.2.593 1940 Unknown [id number] 2.16.84 0.1.920408.3.579.2.593 1940 Unknown [id number] 2.16.84 0.1.984936.3.579.2.593 1942 Unknown [id number] 2.16.84 0.1.812836.3.579.2.593 1942 Unknown [id number] 2.16.84 0.1.071437.3.579.2.593 1942 Unknown [id number] 2.16.84 0.1.028070.3.579.2.593 1942 Unknown [id number] 2.16.84 0.1.074202.3.579.2.593 1942 Unknown [id number] 2.16.84 0.1.615452.3.579.2.593 1942 Unknown [id number] 2.16.84 0.1.964448.3.579.2.593 1942 Unknown [id number] 2.16.84 0.1.533071.3.579.2.593 1942 Unknown [id number] 2.16. 840.1.108345.3.579.2.196 1942 Unknown [id number] 2.16. 840.1.142400.3.579.2.196 1942 Unknown [id number] 2.16.84 0.1.398064.3.579.2.1259 1942 Unknown [id number] 2.16.84 0.1.096007.3.579.2.1259 1942 Unknown [id number] 2.16.84 0.1.295328.3.579.2.1259 1942 Unknown [id number] 2.16.840 .1.257712.3.579.2.1259 1942 Unknown [id number] 2.16.8 40.1.260915.3.579.2.727 1942 Unknown [id number] 2.16.8 40.1.409910.3.579.2.727 1942 Unknown [id number] 2.16.8 40.1.729933.3.579.2.72 1942 Unknown [id number] 2.16.8 40.1.469193.3.579.2.72 1942 Unknown [id number] 2.16.8 40.1.522492.3.579.2.727 1942 Unknown [id number] 2.16.8 40.1.037963.3.579.2.72 1942 Unknown [id number] 2.16.8 40.1.182869.3.579.2.72 1942 Unknown [id number] 2.16.8 40.1.563092.3.579.2.727 1942 Unknown [id number] 2.16.8 40.1.813331.3.579.2.727 1942 Unknown [id number] 2.16.8 40.1.839613.3.579.2.72 1942 Unknown [id number] 2.16.8 40.1.917947.3.579.2.72 1942 Unknown [id number] 2.16.8 40.1.734119.3.579.2.72 1942 Unknown [id number] 2.16.8 40.1.593858.3.579.2.727 1942 Unknown [id number] 2.16.8 40.1.385972.3.579.2.727 Social History Date Type Detail Facility Start: 02-02-2023 End: 08-24-2023 Tobacco smoking status Never smoked tobacco (finding) [facility] Tobacco smoking status Never [facility] Sex Assigned At Female [facility] Medical Equipment Procedure Code Equipment Code Equipment Origin al Text Equipment Identifier Dates CATARACT EXTRACT ION W/ INTRAOCULAR LENS Fredy Moseley DO 04/30/20 Non Biological Eye L {[id number] Start: 04-30-2020 CATARACT EXTRACT ION W/ INTRAOCULAR LENS Fredy Moseley DO 05/14/20 Non Biological Eye R {[id number] Start: 05-14-2020 Clinical Note 12-03-2023 Note Date & Type Note Facility 12-03-2023 Note Patient Education Cardiovascular Hypertension, Adult High blood pressure (hypertension) is when the force of blood pumping through the arteries is too strong. The arteries are the blood vessels that carry blood from the heart throughout the body. Hypertension forces the heart to work harder to pump blood and may cause arteries to become narrow or stiff. Untreated or uncontrolled hypertension can lead to a heart attack, heart failure, a stroke, kidney disease, and other problems. A blood pressure reading consists of a higher number over a lower number. Ideally, your blood pressure should be below 120/80. The first ( top ) number is called the systolic pressure. It is a measure of the pressure in your arteries as your heart beats. The second ( bottom ) number is called the diastolic pressure. It is a measure of the pressure in your arteries as the heart relaxes. What are the causes? The exact cause of this condition is not known. There are some conditions that result in high blood pressure. What increases the risk? Certain factors may make you more likely to develop high blood pressure. Some of these risk factors are under your control, including: ? Smoking. ? Not getting enough exercise or physical activity. ? Being overweight. ? Having too much fat, sugar, calories, or salt (sodium) in your diet. ? Drinking too much alcohol. Other risk factors include: ? Having a personal history of heart disease, diabetes, high cholesterol, or kidney disease. ? Stress. ? Having a family history of high blood pressure and high cholesterol. ? Having obstructive sleep apnea. ? Age. The risk increases with age. What are the signs or symptoms? High blood pressure may not cause symptoms. Very high blood pressure (hypertensive crisis) may cause: ? Headache. ? Fast or irregular heartbeats (palpitations). ? Shortness of breath. ? Nosebleed. ? Nausea and vomiting. ? Vision changes. ? Severe chest pain, dizziness, and seizures. How is this diagnosed? This condition is diagnosed by measuring your blood pressure while you are seated, with your arm resting on a flat surface, your legs uncrossed, and your feet flat on the floor. The cuff of the blood pressure monitor will be placed directly against the skin of your upper arm at the level of your heart. Blood pressure should be measured at least twice using the same arm. Certain conditions can cause a difference in blood pressure between your right and left arms. If you have a high blood pressure reading during one visit or you have normal blood pressure with other risk factors, you may be asked to: ? Return on a different day to have your blood pressure checked again. ? Monitor your blood pressure at home for 1 week or longer. If you are diagnosed with hypertension, you may have other blood or imaging tests to help your health care provider understand your overall risk for other conditions. How is this treated? This condition is treated by making healthy lifestyle changes, such as eating healthy foods, exercising more, and reducing your alcohol intake. You may be referred for counseling on a healthy diet and physical activity. Your health care provider may prescribe medicine if lifestyle changes are not enough to get your blood pressure under control and if: ? Your systolic blood pressure is above 130. ? Your diastolic blood pressure is above 80. Your personal target blood pressure may vary depending on your medical conditions, your age, and other factors. Follow these instructions at home: Eating and drinking ? Eat a diet that is high in fiber and potassium, and low in sodium, added sugar, and fat. An example of this eating plan is called the DASH diet. DASH stands for Dietary Approaches to Stop Hypertension. To eat this way: ? Eat plenty of fresh fruits and vegetables. Try to fill one half of your plate at each meal with fruits and vegetables. ? Eat whole grains, such as whole-wheat pasta, brown rice, or whole-grain bread. Fill about one fourth of your plate with whole grains. ? Eat or drink low-fat dairy products, such as skim milk or low-fat yogurt. ? Avoid fatty cuts of meat, processed or cured meats, and poultry with skin. Fill about one fourth of your plate with lean proteins, such as fish, chicken without skin, beans, eggs, or tofu. ? Avoid pre-made and processed foods. These tend to be higher in sodium, added sugar, and fat. ? Reduce your daily sodium intake. Many people with hypertension should eat less than 1,500 mg of sodium a day. ? Do not drink alcohol if: ? Your health care provider tells you not to drink. ? You are , may be , or are planning to become . ? If you drink alcohol: ? Limit how much you have to: ? 0?1 drink a day for women. ? 0?2 drinks a day for men. ? Know how much alcohol is in your drink. In the [place] one drink equals one 12 oz bottle of beer (355 mL), one 5 oz glass of wine (148 mL), (more content not included)... [facility] Clinical Note 09-24-2021 Note Date & Type Note Facility 09-24-2021 Note OPERATIVE NOTE OPERATION DATE: 09/24/2021 PREOPERATIVE DIAGNOSIS: Personal history of colon polyps, family history of colon cancer. POSTOPERATIVE DIAGNOSIS: Rectal polyp and sigmoid diverticulosis. PROCEDURE: Colonoscopy to cecum with cold forceps polypectomy x1 for a 3 mm rectal polyp. SURGEON: Lamar Sexton M.D. ANESTHESIA: Monitored anesthesia care. INDICATIONS AND CONSENT: Patient is a 80-year-old female with a personal history of colon polyps, as well as a family history of colon cancer. The indications, risks, benefits, alternatives of proceeding with surveillance colonoscopy were explained extensively to the patient, including risks of bleeding, colon perforation or anesthetic complications. All of her questions were answered. Informed consent was obtained. PROCEDURE: Patient brought to the operating room, placed in the left lateral decubitus position. Monitored anesthesia care was provided. Rectal exam was performed which showed no masses or blood. The scope was inserted into the anal canal. Under direct visualization was advanced. With the aid of abdominal compression, it was advanced to the cecum where cecal markings were clearly identified. There was noted to be a fair prep. Upon withdrawal of the scope, mucosal surfaces were carefully examined. There were no mass lesions or inflammatory changes. There was moderate sigmoid diverticulosis without inflammatory changes or scarring. Within the rectum, there was noted to be a 3 mm sessile polyp that was removed with cold biopsy forceps with good hemostasis. The scope was retroflexed in the anal canal. There was no significant hemorrhoidal disease. Scope was then withdrawn. Patient tolerated procedure well, was sent to recovery room in good condition. Follow up colonoscopy should be five years, but may change depending on the pathology report. CC: Mago Freedman M.D. [facility] Signed and Approved by: DR LAMAR SEXTON . 09/25/2021 12:58:00 [facility] Clinical Note 08-20-2021 Note Date & Type Note Facility 08-20-2021 Note OPERATIVE NOTE OPERATION DATE: 08/20/2021 PREOPERATIVE DIAGNOSIS: Change in bowel habits as well as personal history of colon polyps. POSTOPERATIVE DIAGNOSIS: Poor prep as well as severe sigmoid diverticulosis. PROCEDURE: Colonoscopy to sigmoid colon at 45 cm. SURGEON: Lamar Sexton M.D. ANESTHESIA: Monitored anesthesia care. ESTIMATED BLOOD LOSS: Zero. INDICATIONS AND CONSENT: Patient is a 80-year-old female with a history of bowel changes with intermittent loose stools as well as a personal history of colon polyps. Indications, risks, benefits, alternatives of proceeding with colonoscopy were explained extensively to the patient, including the risks of bleeding, colonic perforation or anesthetic complications. All of her questions were answered. Informed consent was obtained. PROCEDURE: Patient brought to the operating room, placed in the left lateral decubitus position. Monitored anesthesia care was provided. Rectal exam was performed which showed no masses or blood. The scope was inserted into the anal canal. Under direct visualization was advanced. With the aid of abdominal compression, it was advanced to approximately 45 cm. There was noted to be a large amount of solid stool that could not be circumvented. Patient has a very redundant spastic colon as well as severe sigmoid diverticulosis without inflammatory changes. Upon withdrawal of the scope, mucosal surfaces were carefully examined. There were no mass lesions or polyps. No inflammatory changes or ulcerations. There was severe sigmoid diverticulosis. The scope was retroflexed in the anal canal. There were noted to be some prominent rectal veins; no significant hemorrhoidal disease. Scope was then withdrawn. Patient tolerated procedure well, was sent to recovery room in good condition. Patient will be rescheduled after different prep. CC: Mago Freedman M.D. [facility] Signed and Approved by: DR LAMAR SEXTON . 08/21/2021 07:27:00 [facility] Evaluation + Plan note Note Date & Type Note Facility Evaluation + Plan note Future Appointments Appointment Date:03/16/2023 09:00:00 AM Scheduled Provider:Sabina Ruth Location:[facility] Appointment Type:FM Open Appointment Date:12/03/2023 02:00:00 PM Scheduled Provider: Location:[facility] Appointment Type:FM Medicare Wellness Subsequent [facility] Evaluation + Plan note Note Date & Type Note Facility Evaluation + Plan note Future Appointments Appointment Date:11/25/2023 01:00:00 PM Scheduled Provider: Location:[facility] Appointment Type:FM Medicare Wellness Subsequent Appointment Date:02/24/2024 10:00:00 AM Scheduled Provider:Sabina Ruth Location:[facility] Appointment Type: Open [facility] Hospital course Narrative Note Date & Type Note Facility Hospital course Narrative No data available for this section [facility] Hospital Discharge instructions Note Date & Type Note Facility Hospital Discharge instructions No data available for this section [facility] Progress note Note Date & Type Note Facility Progress note No data available for this section [facility] Summary Purpose Family History No Family History Records Found No data available for this section No Family History Records Found No data available for this section No Family History Records FoundNo Family History Records Found Advance Directives No Advanced Directives Records FoundNo Advanced Directives Records FoundNo Advanced Directives Records FoundNo Advanced Directives Records Found Additional Source Comments INFORMATION SOURCE (unrecogn ized section and content) DATE CREATED AUTHOR 07/25/2022 [facility] DATE CREATED AUTHOR AUTHOR'S ORGANIZ ATION 05/03/2023 [facility] DATE CREATED AUTHOR AUTHOR'S ORGANIZ ATION 10/18/2023 [facility] DATE CREATED AUTHOR AUTHOR'S ORGANIZ ATION 12/05/2023 [facility] Patient Care team informatio n (unrecognized section and content) Personnel Name: Sabina Ruth Address: Address: [address] [place] [address]- Personnel Name: Sabina Ruth Address: Address: [address] [place] [address]- FOR RECORDS PERTAINING TO PATIENTS WHO ARE OR HAVE BEEN ENROLLED IN A CHEMICAL DEPENDENCY/SUBSTANCEABUSE PROGRAM, SOME INFORMATION MAY BE OMITTED. This clinical summary was aggregated from multiple sources. Caution should be exercised in using it in the provision of clinical care. This summary normalizes information from multiple sources, and as a consequence, information in this document may materially change the coding, format and clinical context of patient data. In addition, data may be omitted in some cases. CLINICAL DECISIONS SHOULD BE BASED ON THE PRIMARY CLINICAL RECORDS. [facility]. provides no warranty or guarantee of the accuracy or completeness of information in this document.
--- NOTE | 2023-12-15 19:19 | XR_ITS ---
The [address] [address] Patient Name: NIMCO PRESTON MRN: [id number] date: 1940 Sex: F Assigned Patient Location: ER Current Patient Location: ER Accession/Order Number: [id number] Exam Date: 12/15/2023 19:32 Report Date: 12/15/2023 20:35 At the request of: BRIDGER LÓPEZ Procedure: XR wrist LT min 3V IMAGES REVIEWED: XR wrist LT min 3V COMPARISON: None available. CLINICAL INDICATION: Fall, caught herself with left hand FINDINGS/IMPRESSION: 1. Borderline widening scapholunate interval, may suggest scapholunate ligament injury. 2. Moderate radial wrist soft tissue swelling. 3. No acute fracture or dislocation. 4. Severe degenerative change first CMC joint. Electronically authenticated by: BLAYNE BUENO Date: 12/15/2023 20:35
--- NOTE | 2023-12-15 19:27 | ED.UPPEXIN1 ---
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 Denies other injury . neg hand/finger weakness or numbness Related Data Home Medications ?Medication ?Instructions ?Recorded ?Confirmed alendronate 70 mg tablet mg PO 12/15/23 colestipol 1 gram tablet g PO 12/15/23 hydrochlorothiazide 12.5 mg capsule mg 12/15/23 losartan 25 mg tablet mg 12/15/23 potassium chloride 20 mEq meq PO 12/15/23 tablet,extended release(part/cryst) (Klor-Con M) Allergies Allergy/AdvReac Type Severity Reaction Status Date / Time cefuroxime Allergy Anaphylaxis Verified 12/15/23 19:14 axetil Allergy Unknown Uncoded 12/15/23 19:14 Opioid HPI Opioid Management Most Recent Pain and Opioid Data: Last Pain Scale 4 12/15/23 19:20 Last ED Pain Assessment 12/15/23 19:20 Review of Systems ROS Status of ROS 10 or more systems reviewed and unremarkable except as noted in history and below Exam Constitutional Vital Signs, click to edit/add: Last Vital Signs Temp 98.1 F 12/15/23 19:09 Pulse 77 12/15/23 19:09 Resp 16 12/15/23 19:09 BP 182/72 H 12/15/23 19:09 Pulse Ox 97 12/15/23 19:09 O2 Del Method Room Air 12/15/23 19:09 Common normals: no apparent distress, average body habitus, oriented x3, no limitations, healthy appearing, alert and well nourished [facility] Common normals: normocephalic and head/scalp atraumatic Eye Common normals: EOMs intact bilaterally and conjunctivae normal Respiratory Common normals: normal respiratory effort, no retractions, no use of accessory muscles and clear to auscultation bilaterally Cardio Common normals: regular rate, regular rhythm, S1 normal heart sound and S2 normal heart sound GI Common normals: Normal to inspection, nondistended, normoactive bowel sounds present and soft to palpation Extremity Other: mild swelling left wrist. no deformity. left elbow and hand/fingers normal Neuro Common normals: oriented x3, CN's II-XII intact bilaterally, moves all extremities and no focal motor deficits Psych Appearance: grossly normal Course Vital Signs Vital signs: Vital Signs Temperature 98.1 F 12/15/23 19:09 Pulse Rate 77 12/15/23 19:09 Respiratory Rate 16 12/15/23 19:09 Blood Pressure 182/72 H 12/15/23 19:09 Pulse Oximetry 97 12/15/23 19:09 Oxygen Delivery Method Room Air 12/15/23 19:09 Temperature 98.1 F 12/15/23 19:09 Pulse Rate 77 12/15/23 19:09 Respiratory Rate 16 12/15/23 19:09 Blood Pressure 182/72 H 12/15/23 19:09 Pulse Oximetry 97 12/15/23 19:09 Oxygen Delivery Method Room Air 12/15/23 19:09 MDM - Extremity Injury (Upper) MDM Narrative Medical decision making narrative: patient presents after fall injury to left wrist. N/V intact. mild swelling of the wrist but no obvious deformity. Xrays ordered and patient has ice on the site xrays per radiologist with possible scalphoid ligamentous injury. I'm concerned for possible nondisplaced fracture of the distal radius patient place in a volar splint and discharged to follow up with ortho Discharge Plan Discharge Stand Alone Forms: Work/School Release, Portal Instructions Chief Complaint: Extremity Injury, Upper Clinical Impression: Fracture of wrist Patient Disposition: Home, Self-Care Prescriptions / Home Meds: No Action alendronate 70 mg tablet PO potassium chloride [Klor-Con M20] 20 mEq tablet,ER particles/crystals PO losartan 25 mg tablet hydrochlorothiazide 12.5 mg capsule colestipol 1 gram tablet PO Print Language: Cook Islander Instructions: Wrist Fracture in Adults (ED) Additional Instructions: follow up with Dr Sandra next week Referrals: MARICHUY MICHEL [Primary Care Provider] - 1 week Procedures ED Procedure Instructions Procedures Procedures: left wrist fracture. volar splint placed using fiber glass material and adalberto bandages. Patient tolerated well. N/V post procedure WNL
[2023-12-15 21:11] VITALS: BP 174/77; PULSE 66; O2SAT 98
== END 2023-12-15 21:23 | disposition home or self-care (01) ==
PROVIDERS: Emergency Provider Internal Medicine; PCP Nurse Practitioner
DX: S52.502A Unspecified fracture of the lower end of left radius, initial encounter for closed fracture (principal); W19.XXXA Unspecified fall, initial encounter
CPT/HCPCS: 29125; 73110; 99283

== ENCOUNTER 2023-12-27 09:56 | Outpatient (OUT) | payer MEDICARE, OTHER, SELFPAY ==
--- NOTE | 2023-12-27 | MM_ITS ---
Patient Name: NIMCO PRESTON MR#: [id number] : 1940 Exam Date: 12/27/2023 Ordering Doctor: MARICHUY MICHEL . RADIOLOGY REPORT PROCEDURE: MM TOMOSYNTHESIS SCREENING BI COMPARISON: MG MAMM SCREEN 3D JAMES CAD, 12/19/2021. MM TOMOSYNTHESIS SCREENING BI, 12/24/2022. INDICATIONS: Screening for malignant neoplasm Calculator Name NCI Breast Cancer Risk Assessment Tool 5 Year Breast Cancer Risk 1.40% Lifetime Breast Cancer Risk 2.10% Personal Breast Cancer No Personal Ovarian Cancer No Treatments None Family Cancers Cousin-paternal with breast cancer at age 68; Father with colon cancer at age 67. LOCATION: [facility] BREAST COMPOSITION: The breasts are extremely dense, which lowers the sensitivity of mammography. FINDINGS: DIAGNOSTIC CATEGORY 2--BENIGN FINDING. NO CHANGE FROM COMPARISON. Scattered benign-appearing nodules are present. Scattered benign-appearing calcifications are present. Scattered benign-appearing lymph nodes are present. RIGHT BREAST: No significant suspicious finding. LEFT BREAST: No significant suspicious finding. RECOMMENDATIONS: ROUTINE MAMMOGRAM AND CLINICAL EVALUATION IN 12 MONTHS. PLEASE NOTE: A NORMAL MAMMOGRAM DOES NOT EXCLUDE THE POSSIBILITY OF BREAST CANCER. A CLINICALLY SUSPICIOUS PALPABLE LUMP SHOULD BE BIOPSIED. Dictated by: Oneil Condon MD on 12/27/2023 at 10:52 Approved by: Oneil Condon MD on 12/27/2023 at 10:53
== END 2023-12-27 09:57 | disposition home or self-care (01) ==
LOC: MAMMO 09:56
PROVIDERS: PCP Nurse Practitioner; Visit Provider Nurse Practitioner
DX: Z12.31 Encounter for screening mammogram for malignant neoplasm of breast (principal); Z80.3 Family history of malignant neoplasm of breast; Z80.0 Family history of malignant neoplasm of digestive organs
CPT/HCPCS: 77063; 77067

== ENCOUNTER 2023-12-27 11:19 | Outpatient (OUT) | payer MEDICARE, OTHER, SELFPAY ==
--- NOTE | 2023-12-27 | XR_ITS ---
The [address] [address] Patient Name: NIMCO PRESTON MRN: [id number] date: 1940 Sex: F Assigned Patient Location: Current Patient Location: Accession/Order Number: [id number] Exam Date: 12/27/2023 11:20 Report Date: 12/28/2023 18:58 At the request of: RONEY CHOI Procedure: XR wrist LT min 3V EXAM: XR wrist LT min 3V HISTORY: LEFT WRIST PAIN COMPARISON: 12/15/2023 FINDINGS/IMPRESSION: 1. Overlying splint material obscures fine bony detail. 2. No definitive visualized fracture line by this modality and technique. 3. Normal alignment of the carpal bones.. 4. Moderate degeneration at the first carpometacarpal joint. Electronically authenticated by: GINA BEAULIEU Date: 12/28/2023 18:58
--- OUTSIDE RECORDS SUMMARY | 2023-12-27 11:38 | XMS_ITS | CCD ---
Author Organization [facility] Care Team Providers Care Junior Paralegal Name Role Phone TANO ., DR MAGO [...] Care Unavailable FREEDMAN ., DR MAGO Oh Admitting Unavailable JUAQUIN, DR BERNARD Lopez Consulting Unavailable FREEDMAN ., DR MAGO Oh Consulting Unavailable FREEDMAN ., DR MAGO Oh Attending Unavailable FREEDMAN ., DR MGAO Oh Admitting Unavailable FREEDMAN ., DR MAGO Oh Primary Care Unavailable FREEDMAN ., DR MAGO Oh Consulting Unavailable FREEDMAN ., DR MAGO Oh Attending Unavailable FREEDMAN ., DR MAGO Oh Admitting Unavailable TANO ., DR MAGO Oh Primary Care Unavailable Linda, Sabina L Primary Care Physician [phone] Tano EDEN, Mago Self Primary Care Unavaildillon Bojorquez MD, Zheng Thompson Attending Rosa Isela Freedman MD, Mago Self Primary Care Unavaildillon Bojorquez MD, Zheng Thompson Attending Rosa Isela HANDY, CAPO H Attending Unavailable HANDY, CAPO H Attending Unavailable HANDY, CAPO H Attending Unavailable HANDY, CAPO H Attending Unavailable HANDY, CAPO H Attending Unavailable Linda, NUMBERER AND WIRER Sabina L Attending Unavailable Linda, NUMBERER AND WIRER Sabina L Attending Unavailable Linda, NUMBERER AND WIRER Sabina L Attending Unavailable Linda, NUMBERER AND WIRER Sabina L Attending Unavailable Linda, NUMBERER AND WIRER Sabina L Attending Unavailable Linda, NUMBERER AND WIRER Sabina L Attending Unavailable Linda, NUMBERER AND WIRER Sabina L Attending Unavailable Linda, NUMBERER AND WIRER Sabina L Attending Unavailable Linda, NUMBERER AND WIRER Sabina L Admitting Unavailable Linda, NUMBERER AND WIRER Sabina L Attending Unavailable Linda, NUMBERER AND WIRER Sabina L Admitting Unavailable Linda, NUMBERER AND WIRER Sabina L Attending Unavailable Linda, NUMBERER AND WIRER Sabina L Attending Unavailable Linda, NUMBERER AND WIRER Sabina L Attending Unavailable Linda, NUMBERER AND WIRER Sabina L Attending Unavailable Allergies Allergy Classification Reported Allergen(s) Allergy Type Date of Onset Reaction(s) Facility (2 sources) Amitriptyline; Translations: [amitriptyline] Drug Allergy [facility] Repository (1 source) Cephalexin Drug Allergy [facility] (2 sources) Amitriptyline; Translations: [amitriptyline] Drug Allergy Unknown (qualifier value) [facility] [place] (3 sources) Cefuroxime; Translations: [cefuroxime] Drug Allergy Syncope and collapse (disorder), Itching (finding) [facility] (2 sources) No Known Medication Allergies; Translations: [No Known Medication Allergies] Propensity to adverse reactions to drug (disorder) [facility] Repository Medications Current Medications Medication Drug [...] Ordered Start: 04-07-2021 take 1 tablet by eric once daily in the morning Colestid 1 [...] Start: 02-02-2023 take 1 capsule by mo [facility] once daily hydrochlorothiazide 12.5 mg Cap 12.5 [...] Date: 02/02/23 Stop Date: 05/03/23 [facility]: [facility] source) Start: 12-01-2022 Misc Medicatio [...] 09-30-2021 Episodic Other aftercare (1 source) 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 Discharge Vitals Temperature (Temporal Artery) 36.5 ?C Heart Rate (Peripheral) 68 Respiratory Rate 18 Blood Pressure 128/84 Height 167.5 cm Height 66 in Weight 83.2 kg Weight 183.04 lb BMI 29.65 What to do next Scheduled Follow-Up Appointments 2023 10:00 AM EST With: Sabina Ruth Where: [address] [id number]- 2024 11:00 AM EDT With: Where: [address] [address]- Medications What How Much When Why Instructions [...] (BMI 25.0-29.9) Personal history of colonic polyps Right hip pain Shortness of breath Vitamin D deficiency Patient Survey You may receive a survey via text or e-mail asking about your office visit. Please share your experience with us by completing your survey. We appreciate your feedback and thank you for choosing us for your care. Normal [facility] Family Medicine Office/Clini c Noteon 12-24-2023 Family Medicine Office/Clinic Note Family Medicine Office/Clinic Note HPI Staff Nori is a 83 year old female presenting with 3 week f/u Ech and Chest Xray- [facility] was advised to get further work up from Cardiology with Dr. Rajput for SOB and fatigue April 2024 is her appt. Had pain 2 days since she has been her no more pain History of Present Illness pt presents today to go over chest xray and carotid artery u/s Review of Systems PHQ Score Initial Depression Screen Score: 0 SCORE Physical Exam Vitals & Measurements T: 36.5 ?C(Temporal Artery) HR: 68(Peripheral) RR: 18 BP: 128/84 SpO2: 97% HT: 66 in HT: 167.5 cm WT: 83.2 kg WT: 183.04 lb BMI: 29.65 General: alert, no acute distress ENMT: oral mucosa moist, no pharyngeal erythema or exudate Cardiovascular: regular rate and rhythm, normal peripheral perfusion Respiratory: Lungs CTA, respirations non labored Extremities: no deformity, no trauma Neurological: oriented x 4, LOC appropriate for age, CN II-XII intact, motor strength equal & normal bilaterally, speech normal Assessment/Plan 1. Chest pain (R07.9: Chest pain, unspecified) pt states the pain she was experiencing is no longer there. she had a slight twinge in her chest the day she feel for a few seconds but nothing since then. she is still SOB on exertion. has cardiology appt in April. encouraged her to go to ER if pain comes back. 2. Non-smoker (Z78.9: Other specified health status) continue not smoking Ordered: Body Mass Index (BMI) documented 3008F Current tobacco non-user 1036F Depression Screening Negative 3352F Influenza immunization status assessed 1030F Most recent diastolic blood pressure 80-89 mm Hg 3079F Patient screen for fall risk: no falls in last year or 1 fall with no injury in last year 1101F Systolic BP <130 mm Hg (Most Recent) 3074F 3. BMI 29.0-29.9,adult (Z68.29: Body mass index [BMI] 29.0-29.9, adult) BMI education given Ordered: Body Mass Index (BMI) documented 3008F Current tobacco non-user 1036F Depression Screening Negative 3352F Influenza immunization status assessed 1030F Most recent diastolic blood pressure 80-89 mm Hg 3079F Patient screen for fall risk: no falls in last year or 1 fall with no injury in last year 1101F Systolic BP <130 mm Hg (Most Recent) 3074F 4. Excess weight (E66.3: Overweight) see above Ordered: Body Mass Index (BMI) documented 3008F Current tobacco non-user 1036F Depression Screening Negative 3352F Influenza immunization status assessed 1030F Most recent diastolic blood pressure 80-89 mm Hg 3079F Patient screen for fall risk: no falls in last year or 1 fall with no injury in last year 1101F Systolic BP <130 mm Hg (Most Recent) 3074F Follow-up No qualifying data available Problem List/Past Medical History Ongoing Allergic rhinitis, seasonal Asthma BMI 29.0-29.9,adult BMI 30.0-30.9,adult Cerumen impaction Change in bowel habits Chest pain Chronic UTI Diverticulosis Fatigue GERD (gastroesophageal reflux disease) HTN (hypertension) Leg cramps Migraines Osteoporosis Overweight (BMI 25.0-29.9) Personal history of colonic polyps Right hip pain Shortness of breath Vitamin D deficiency Historical No qualifying data Procedure/Surgical History Cataract extraction and insertion of intraocular lens (05/14/2020), Cataract extraction and insertion of intraocular lens (04/30/2020), Colonoscopy (11/25/2016), Colonoscopy (10/11/2013), Colonoscopy (09/28/2012), Appendectomy, Arthroplasty of knee, Cervical polypectomy, Cholecystectomy, Cystoscopy, Urethral dilatation. Medications albuterol, NEB, q4hr, PRN alendronate 70 mg Tab, See Instructions amoxicillin 500 mg Cap, See Instructions, 1 refills APAP/butalbital/caff eine 325 mg-50 mg-40 mg Tab, 1 tab(s), Oral, q4hr, PRN calcium (as carbonate) 600 mg oral tablet, 600 mg= 1 tab(s), Oral, Daily Celebrate Multivitamin oral capsule, 1 cap(s), Oral, Daily colestipol 1 g Tab, See Instructions hydrochlorothiazide 12.5 mg Cap, 12.5 mg= 1 cap(s), Oral, Daily, 3 refills Klor-Con M20 oral tablet, extended release losartan 25 mg Tab, 25 mg= 1 tab(s), Oral, BID, 3 refills Probiotic, 1 tab, Oral, Daily Vitamin D3, 50 mcg, Oral, Daily Allergies cefuroxime (Syncope and collapse, Itch) amitriptyline (Unknown) Social History Alcohol - Low Risk, 12/01/2022 Current, Wine, 1-2 times per year, 1 drinks/episode average. 2.00 drinks/episode maximum. Alcohol use interferes with work or home: No. Drinks more than intended: No. Others hurt by drinking: No. Ready to change: No. Household alcohol concerns: No., 12/02/2023 Substance Abuse - Denies Substance Abuse, 04/08/2021 Tobacco Never (less than 100 in lifetime) Tobacco Use:. Never Smokeless Tobacco Use:. Cigarettes, Household tobacco concerns: No. Yes, 12/24/2023 Family History Cardiac arrest: Mother. Primary malignant neoplasm of colon: Father. Immunizations Vaccine Date Status Comments SARS-CoV-2 mRNA (toz (more content not included)... Normal [facility] Comment on above: Result Comment: Elec tronically Signed By: Sabina Ruth\.tato\Date and Time Signed: 12/24/23 10:45 EDT Ambulatory Visit Summaryon 0 12-03-2023 Ambulatory Visit [...] 9:00 AM EDT With: Sabina Ruth Where: [address] [address]- 2023 10:00 AM EST With: Sabina Ruth Where: [address] [address]- 2024 11:00 AM EDT With: Where: [address] [address]- Medications What How Much When [...] BMI calculated? (more content not included)... Normal [facility] Ambulatory Visit Summary Ambulatory Visit Summary [...] 10:00 AM EDT With: Sabina Ruth Where: [address] [address]- 2023 10:00 AM EST With: Sabina Ruth Where: [address] [address]- 2024 11:00 AM EDT With: Where: [address] [address]- Medications What How Much When Why Instructions [...] choosing us for your care. Normal [facility] Family Medicine Office/Clini c Noteon 12-03-2023 [...] of clutter to prevent tripping and/or falling. [place] Advance Directives reviewed. Documents are scanned into [...] PCP visit. Labs to be completed with [facility]. No concerns with bowel/ bladder. Colonoscopy last [...] of jovanni (more content not included)... Normal [facility] Comment on above: Result Comment: Elec tronically Signed By: Sabina Ruth\.br\Date and Time Signed: 12/03/23 10:21 EDT\.br\Electronically Co-Signed By: Renu Yang\.br\Date and Time Co-Signed: 12/03/23 08:31 EDT\.br\Electronically Co-Signed By: Renu Yang\.br\Date and Time Co-Signed: 12/03/23 08:33 EDT Family [...] referral to go to Dr. Rajput in [place], this is who her sees. patient originally thought she just pulled a muscle in her chest when pulling weeds. but with her having SOB and fatigue I feel she needs further work up by cardiology. Ordered: ECG 12 Lead Adult [facility] External Ambulatory Referral 2. Shortness of breath (R06.02: Shortness of breath) pt gets very short of breath on any exertion Ordered: ECG 12 Lead Adult [facility] External Ambulatory Referral 3. Fatigue (R53.83: Other fatigue) EKG, carotid artery u/s and chest x ray ordered Ordered: [facility] External Ambulatory Referral 4. Non-smoker (Z78.9: Other specified health status) continue not smoking Ordered: potassium chloride, 20 mEq = 1 tab(s), Oral, Daily, # 30 tab(s), Refills(s) 6, Pharmacy: [facility]/pharmacy #[id number], 166, cm, 02/02/23 8:45:00 EDT, Height/Length Dosing, 85, kg, 02/02/23 8:45:00 EDT, Weight Dosing Body Mass Index (BMI) documented 3008F Current tobacco non-user 1036F Depression Screening Negative 3352F Discharge medications reconciled with current medications in outpatient record 1111F ECG 12 Lead Adult [facility] External Ambulatory Referral Medication list documented in medical record 1159F Patient screen for fall risk: no falls in last year or 1 fall with no injury in last year 1101F Review of all meds by a prescribing practitioner or clinical pharmacist documented in EHR 1160F 5. BMI 29.0-29.9,adult (Z68.29: Body mass index [BMI] 29.0-29.9, adult) BMI education given Ordered: ECG 12 Lead Adult [facility] External Ambulatory Referral 6. Overweight (BMI 25.0-29.9) (E66.3: Overweight) see above Ordered: ECG 12 Lead Adult 7. Right hip pain (M25.551: Pain in right hip) pt had injection in right hip a few years ago and was pain free until a couple weeks ago. 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 if hip continues to be a [...] Migraines O (more content not included)... Normal [facility] Comment on above: Result Comment: Elec [...] Appointments 2023 1:00 PM EDT With: Where: [facility] Normal [address] [place] [address]- \.br\ Medications\.br\ What How Much When Why [...] for choosing us for your care.\.br\ \.br\ [facility] BMPon 08-24-2023 Anion gap [Moles/Vol] 10 mmol/L Normal 6-16 [facility] Comment on above: Performed By: #### 5 [id number], 7320113, 4281085, [id number] ####[facility] [address] [place] [address] Calcium [Mass/Vol] 9.4 mg/dL Normal 8.9-11.1 [facility] Comment on above: Performed By: #### 5 [id number], 7075880, 2271892, 65979128 ####[facility] [address] [place] [address] Chloride [Moles/Vol] 104 mmol/L Normal 101-111 [facility] Comment on above: Performed By: #### 5 [id number], 0388610, 8222469, [id number] ####[facility] [address] [place] [address] CO2 [Moles/Vol] 30 mmol/L Normal 21-31 [facility] Comment on above: Performed By: #### 5 [id number], 6037356, 5037755, [id number] ####[facility] [address] [place] [address] Creatinine [Mass/Vol] 0.7 mg/dL Normal 0.5-1.3 [facility] Comment on above: Performed By: #### 5 [id number], 4976263, 5035889, [id number] ####[facility] [address] [place] [address] Glucose [Mass/Vol] 79 mg/dL Normal 55-199 [facility] Comment on above: Performed By: #### 5 [id number], 1707651, 3329036, 90305843 ####[facility] [address] [place] [address] Potassium [Moles/Vol] 4.3 mmol/L Normal 3.5-5.3 [facility] Comment on above: Performed By: #### 5 [id number], 9750671, 4976121, 63829046 ####[facility] [address] [place] [address] Sodium [Moles/Vol] 140 mmol/L Normal 135-145 [facility] Comment on above: Performed By: #### 5 [id number], 0817161, 9381597, 34045505 ####[facility] [address] [place] [address] Urea nitrogen [Mass/Vol] 19 mg/dL Normal 5-21 [facility] Comment on above: Performed By: #### 5 [id number], 5177340, 1016028, [id number] ####[facility] [address] [place] [address] Urea nitrogen/Creatinine [Mass ratio] 27 No Units High 10-20 [facility] Comment on above: Performed By: #### 5 [id number], 5062745, 5421372, 48036946 ####[facility] [address] [place] [address] CHEMISTRYOrdered By: SYSTEM SYSTEM on 08-24-2023 25-hydroxyvitamin [...] Metabolic Panel Iron Level Lab Specimen Collect 86779 Vitamin D 25 Hydroxy 3. Leg cramps (R25.2: Cramp and spasm) pt c/o leg cramps and feeling week will check electrolytes today Ordered: Basic Metabolic Panel Iron Level Lab Specimen Collect 76262 Vitamin D 25 Hydroxy 4. Non-smoker (Z78.9: Other specified health status) continue not smoking Ordered: Basic Metabolic Panel Iron Level Lab Specimen Collect 89180 Vitamin D 25 Hydroxy 5. BMI 30.0-30.9,adult (Z68.30: Body mass index [BMI] 30.0-30.9, adult) BMI education complete Ordered: Basic Metabolic Panel Iron Level Lab Specimen Collect 57262 Vitamin D 25 Hydroxy Orders: amoxicillin, See Instructions, TAKE 4 CAPSULES BY MOUTH 1/2 HOUR BEFORE PROCEDURE AND 2 CAPSULES 4 HOURS AFTER PROCEDURE, # 6 cap(s), Refills(s) 1, [id number], 166, cm, 03/16/23 9:10:00 EST, Height/Length Dosing, 85.6, kg, 03/16/23 9:10:00 EST, W... amoxicillin, See Instructions, TAKE 4 CAPSULES BY MOUTH 1/2 HOUR BEFORE PROCESURE AND 2 CAPSULES 4 HOURS AFTER, # 6 caplet(s), Refills(s) 1, [id number], 166, cm, 08/24/23 8:56:00 EDT, Height/Length Dosing, 84, kg, 08/24/23 8:56:00 EDT, Weight Dosing potassium chloride, 20 mEq = 1 tab(s), Oral, Daily, # 90 tab(s), Refills(s) 1, [id number], 166, cm, 08/24/23 8:56:00 EDT, Height/Length [...] Cardiac arres (more content not included)... Normal [facility] Comment on above: Result Comment: Elec tronically Signed By: Sabina Ruth\.br\Date and Time Signed: 08/24/23 13:06 EDT Ironon 08-24-2023 Iron [Mass/Vol] 63 microgram/dL Normal 35-153 [facility] Comment on above: Performed By: #### 5 [id number], 2154399, 0670139, [id number] ####[facility] [address] [place] [address] Patient Logson 08-24-2023 Patient Logs [id number] #1.00TIFF Normal [facility] Vitamin D 25 Hydroxyon 08-23 25-hydroxyvitamin D3 [Mass/Vol] 53.7 ng/mL Normal 30.0-100.0 [facility] Comment on above: Performed By: #### 5 [id number], 0810661, 6807403, 77596044 ####[facility] [address] [place] [address] eGFRon 08-24-2023 eGFR 87 mL/min/1.73 m2 Normal >=59 [facility] Comment on above: Order Comment: Order added by Discern Expert. Performed By: #### 5 [id number], 8946234, 9957011, 91550630 ####[facility] [address] [place] [address] Nurse Consultation Noteon Nurse Consultation Note Reason [...] Immunizations Vaccine Date Status Comments SARS-CoV-2 mRNA (tozinameran 5y-11y) vac 03/16/2023 Recorded covid 19 vishal-sucrose SARS-CoV-2 (COVID-19) mRNAMUL.ORD![id number] 02/23/2022 Recorded influenza virus vaccine, inactivated 02/10/2022 [...] inactivated 03/06/2010 Recorded influenza, whole 02/05/2009 Recorded Normal [facility] Immunization Recordson 03-18 Immunization Records [id number] #1.00TIFF Normal [facility] Ambulatory Visit Summaryon 1 05-16-2022 Ambulatory Visit Summary NORI PRESTON :1940 Visit Date:03/16/2023 Ambulatory Visit Instructions Your [...] Appointments Wednesday 9:00 AM EST With: Where: [facility] Invalid Interpretation Code [address] [place] [address]- \.br\ Wednesday 2:00 PM EDT \.br\ With:\.br\ Where: [facility] Office/Clini c Noteon 03-16-2023 Family Medicine Office/Clinic [...] Immunizations Vaccine Date Status Comments SARS-CoV-2 (COVID-19) mRNAMUL.ORD![id number] 02/23/2022 Recorded influenza virus vaccine, inactivated 02/10/2022 Recorded SARSCoV2 mRNA(tozinamer-vishal- sucros) vac 11/12/2021 Recorded influenza virus vaccine, inactivated - Not Given Patient Refuses SARS-CoV-2 (COVID-19) mRNA BNT-162b2 vax 01/23/2021 Recorded 2022-11-25: [id number] (more content not included)... Normal [facility] Comment on above: Result Comment: Elec tronically Signed By: Sabina Ruth\.br\Date and Time Signed: 03/16/23 10:17 EST Patient Logson 03-16-2023 Patient Logs [id number] #1.00TIFF Normal [facility] Patient Logson 03-09-2023 Patient Logs [id number] #1.00TIFF Normal [facility] Patient Logson 02-03-2023 Patient Logs [id number] #1.00TIFF Normal [facility] Ambulatory Visit Summaryon 1 Ambulatory Visit Summary [...] 9:00 AM EST With: Sabina Ruth Where: [facility] Normal [address] [place] [address]- \.br\ Medications\.br\ What How Much When Why [...] Every day\.br\ Unchanged omega-3 polyunsaturated fatty acids ([employer] Red Krill Oil) 500 Milligram By Mouth Every day\.br\ Allergies\.br\ cefuroxime (Syncope and collapse, Itch)\.br\ amitriptyline (Unknown)\.br\ Problems\.br\ Ongoing - Any problem that you are currently receiving treatment for.\.br\ Allergic rhinitis, seasonal\.br\ Asthma\.br\ BMI 30.0-30.9,adult\.br\ Change in bowel habits\.br\ Chronic UTI\.br\ Diverticulosis\.br\ Fatigue\.br\ GERD (gastroesophageal reflux disease)\.br\ HTN (hypertension)\.br\ Migraines\.br\ Osteoporosis\.br\ Personal history of colonic polyps\.br\ Vitamin D deficiency\.br\ \.br\ [facility] Auto Diffon 02-02-2023 Basophils/100 WBC (Bld) 0.5 % Normal 0.0-2.0 [facility] Comment on above: Order Comment: Order Added by Discern Expert. Performed By: #### 2 609619, 2841827, 12990612, 1811925, 4370308, 2232454 ####[address] [place] [address] Basophils/Leukocyte s Auto (Bld) [Pure # fraction] 0.0 E9/L Normal 0.0-0.2 [facility] Comment on above: Order Comment: Order Added by Discern Expert. Performed By: #### 2 775039, 4879807, 54120844, 4103783, 7660830, 8616702 ####[facility] [address] [place] [address] Eosinophils/100 WBC (Bld) 1.4 % Normal 0.0-8.0 [facility] Comment on above: Order Comment: Order Added by Discern Expert. Performed By: #### 2 643599, 1265981, 85558510, 8311566, 6573057, 5640722 ####[address] [place] [address] Eosinophils/Leukocy augustus Auto (Bld) [Pure # fraction] 0.1 E9/L Normal 0.0-0.5 [facility] Comment on above: Order Comment: Order Added by Discern Expert. Performed By: #### 2 224067, 6170791, 42925067, 0259061, 3192721, 8804577 ####[address] [address] Lymphocytes/100 WBC (Bld) 33.1 % Normal 14.0-50.0 [facility] Comment on above: Order Comment: Order Added by Discern Expert. Performed By: #### 2 375379, 1943320, 89891184, 0515021, 9534831, 2281971 ####[address] [place] [address] Lymphocytes/Leukocy augustus Auto (Bld) [Pure # fraction] 2.0 E9/L Normal 1.0-4.0 [facility] Comment on above: Order Comment: Order Added by Discern Expert. Performed By: #### 2 512191, 4616573, 70767334, 8214525, 7281879, 6508613 ####[address] [place] [address] Monocytes/100 WBC (Bld) 8.3 % Normal 4.0-14.0 [facility] Comment on above: Order Comment: Order Added by Discern Expert. Performed By: #### 2 911431, 2642071, 65197455, 2746888, 6653216, 8129955 ####[address] [place] [address] Monocytes/Leukocyte s Auto (Bld) [Pure # fraction] 0.5 E9/L Normal 0.2-1.0 [facility] Comment on above: Order Comment: Order Added by Discern Expert. Performed By: #### 2 236440, 4731332, 60790117, 8438463, 5927041, 6583350 ####[address] [place] [address] Neutrophils/100 WBC (Bld) 56.7 % Normal 36.0-75.0 [facility] Comment on above: Order Comment: Order Added by Discern Expert. Performed By: #### 2 679441, 4316170, 54335745, 7045628, 1867555, 8659526 ####[address] [address] Neutrophils/Leukocy augustus Auto (Bld) [Pure # fraction] 3.5 E9/L Normal 2.0-7.5 [facility] Comment on above: Order Comment: Order Added by Discern Expert. Performed By: #### 2 668486, 8379674, 97985838, 4081076, 0336404, 2852230 ####[address] [address] CBC w/ Auto Diffon 3 Erythrocyte distribution width (RBC) [Ratio] 14.5 % High 10.9-14.2 [facility] Comment on above: Performed By: #### 2 650986, 7688974, 25082028, 5918247, 7638728, 0462866 ####[facility] [address] [place] [address] Hematocrit (Bld) [Volume fraction] 38.8 % Normal 34.0-46.0 [facility] Comment on above: Performed By: #### 2 521456, 5535626, 48100415, 6767011, 8447489, 6286023 ####[address] [address] Hemoglobin (Bld) [Mass/Vol] 13.1 g/dL Normal 12.0-16.0 [facility] Comment on above: Performed By: #### 2 318421, 6008775, 21336460, 1917058, 2018063, 8806400 ####[address] [address] [address] MCH (RBC) [Entitic mass] 29.8 pg Normal 27.0-34.0 [facility] Comment on above: Performed By: #### 2 877652, 0312068, 25613024, 6614873, 7220554, 4450195 ####[address] [address] MCHC (RBC) [Mass/Vol] 33.8 g/dL Normal 31.4-36.0 [facility] Comment on above: Performed By: #### 2 554261, 1173575, 56366891, 7428886, 9612745, 8610116 ####[address] [address] MCV (RBC) [Entitic vol] 88.3 fL Normal 80.0-100.0 [facility] Comment on above: Performed By: #### 2 442960, 8838918, 60246105, 5541928, 6850799, 8155699 ####[address] [address] Platelet mean volume (Bld) [Entitic vol] 9.0 fL Normal 6.4-10.8 [facility] Comment on above: Performed By: #### 2 442036, 5474193, 75469800, 5093604, 0800892, 4402757 ####[address] [address] Platelets (Bld) [#/Vol] 232.0 E9/L Normal 150.0-500.0 [facility] Comment on above: Performed By: #### 2 037755, 8811578, 64299204, 3163791, 4362365, 8266751 ####[facility] [address] [place] [address] RBC (Bld) [#/Vol] 4.4 E12/L Normal 4.3-5.9 [facility] Comment on above: Performed By: #### 2 317654, 3513856, 00068810, 9927995, 8635181, 7857279 ####[facility] [address] [place] [address] WBC corrected for nucl RBC Auto (Bld) [#/Vol] 6.2 E9/L Normal 4.0-11.0 [facility] Comment on above: Performed By: #### 2 524459, 2580622, 98325441, 0713164, 7580294, 7266166 ####[facility] [address] [place] [address] CHEMISTRYOrdered By: SYSTEM SYSTEM on 02-02-2023 Albumin [...] rate/Area] 74 mL/min/1.73 m2 Normal >=59mL/min/1.73 m2 [facility] Chem S Comment on above: Interpretive Data: C hronic kidney disease could be indicated at eGFR's of less than 60 mL/min/1.73m2. Kidney failure is indicated at less than 15 mL/min/1.73m2. Globulin (S) [Mass/Vol] 3.3 g/dL Normal 1.4 - 4.0 gm/dL [facility] Glucose [Mass/Vol] 90 mg/dL Normal 55 - 199 mg/dL [facility] Comment on above: Interpretive Data: I f this glucose result represents a fasting glucose, interpretation should refer to the following reference range: 55-99 mg/dL Potassium [Moles/Vol] 4.2 mmol/L Normal 3.5 - 5.3 mmol/L [facility] Remisol Protein [Mass/Vol] 7.4 g/dL Normal 6.0 - 7.8 gm/dL [facility] Sodium [Moles/Vol] 142 mmol/L Normal 135 - 145 mmol/L [facility]isol Triglyceride [Mass/Vol] 47 mg/dL Normal <=149mg/dL [facility]isol TSH Qn 2.12 m[IU]/L Normal 0.34 - 5.60 mcIU/mL [facility] C Remisol Urea nitrogen [Mass/Vol] 17 mg/dL Normal 5 - 21 mg/dL [facility] Remisol Urea nitrogen/Creatinine [Mass ratio] 21 mg/mg High [facility] Remisol CMPon 02-02-2023 Albumin [Mass/Vol] 4.1 g/dL Normal 3.3-5.0 [facility] Comment on above: Performed By: #### 2 332320, 3212995, 13448706, 2964136, 0235812, 9120683 ####[facility] [address] [place] [address] Albumin/Globulin (S) [Mass conc ratio] 1.2 Normal 1.1-2.2 [facility] Comment on above: Performed By: #### 2 406626, 0860442, 21618654, 9264164, 7971085, 1419874 ####[facility] [address] [place] [address] ALP [Catalytic activity/Vol] 46 Int._Unit/L Normal 21-98 [facility] Comment on above: Performed By: #### 2 938846, 9231449, 29397398, 4545368, 4570762, 2525006 ####[facility] [address] [place] [address] ALT No additional P-5'-P [Catalytic activity/Vol] 18 Int._Unit/L Normal 6-46 [facility] Comment on above: Performed By: #### 2 515269, 2210301, 33090539, 5371132, 6677554, 5712217 ####[facility] [address] [place] [address] Anion gap [Moles/Vol] 11 mmol/L Normal 6-16 [facility] Comment on above: Performed By: #### 2 064128, 5133115, 63357705, 4429065, 3627979, 8994408 ####[facility] [address] [place] [address] AST [Catalytic activity/Vol] 23 Int._Unit/L Normal 5-43 [facility] Comment on above: Performed By: #### 2 165163, 1385991, 60886113, 6396776, 6425568, 4571863 ####[facility] [address] [place] [address] Bilirubin [Mass/Vol] 0.4 mg/dL Normal 0.0-1.1 [facility] Comment on above: Performed By: #### 2 311259, 2271039, 91199494, 7104988, 0118637, 0437412 ####[facility] [address] [place] [address] Calcium [Mass/Vol] 9.9 mg/dL Normal 8.9-11.1 [facility] Comment on above: Performed By: #### 2 881693, 6706313, 56058674, 9909997, 5133905, 7506198 ####[facility] [address] [place] [address] Chloride [Moles/Vol] 106 mmol/L Normal 101-111 [facility] Comment on above: Performed By: #### 2 261417, 3264589, 67289488, 8230714, 7038162, 7924893 ####[facility] [address] [place] [address] CO2 [Moles/Vol] 29 mmol/L Normal 21-31 [facility] Comment on above: Performed By: #### 2 923013, 1484974, 45294476, 2897725, 1528350, 1666303 ####[facility] [address] [place] [address] Creatinine [Mass/Vol] 0.8 mg/dL Normal 0.5-1.3 [facility] Comment on above: Performed By: #### 2 831445, 7160103, 22174396, 4516077, 2689281, 3440788 ####[facility] [address] [place] [address] Globulin (S) [Mass/Vol] 3.3 g/dL Normal 1.4-4.0 [facility] Comment on above: Performed By: #### 2 009126, 6964658, 26980726, 6987342, 1055809, 9776820 ####[facility] [address] [place] [address] Glucose [Mass/Vol] 90 mg/dL Normal 55-199 [facility] Comment on above: Result Comment: If t his glucose result represents a fasting glucose, interpretation should refer to the following reference range: 55-99 mg/dL Performed By: #### 2 559125, 3523386, 39069715, 4526765, 2866919, 0503875 ####[facility] [address] [place] [address] Potassium [Moles/Vol] 4.2 mmol/L Normal 3.5-5.3 [facility] Comment on above: Performed By: #### 2 873147, 2201521, 03512275, 7527076, 9322338, 1062875 ####[facility] [address] [place] [address] Protein [Mass/Vol] 7.4 g/dL Normal 6.0-7.8 [facility] Comment on above: Performed By: #### 2 687409, 7923105, 15715553, 6463523, 9305149, 7883966 ####[facility] [address] [place] [address] Sodium [Moles/Vol] 142 mmol/L Normal 135-145 [facility] Comment on above: Performed By: #### 2 394393, 0020811, 63060990, 0000897, 1095749, 8010967 ####[facility] [address] [place] [address] Urea nitrogen [Mass/Vol] 17 mg/dL Normal 5-21 [facility] Comment on above: Performed By: #### 2 250857, 2481487, 87567204, 2719405, 2437174, 5451189 ####[facility] [address] [place] [address] Urea nitrogen/Creatinine [Mass ratio] 21 No Units High 10-20 [facility] Comment on above: Performed By: #### 2 307237, 6629018, 11110809, 7143359, 5457285, 9387192 ####[facility] [address] [place] [address] Family Medicine Office/Clini c Noteon 02-02-2023 Family [...] day(s), # 60 tab(s), Refills(s) 1, [id number], 166, cm, 01/05/23 10:05:00 EDT, Height/Length Dosing, 85.2, kg, 01/05/23 10:05:00 EDT, Weight Dosing losartan, 25 mg = 1 tab(s), Oral, BID, X 30 day(s), # 60 tab(s), Refills(s) 2, [id number], 166, cm, 02/02/23 8:45:00 EDT, Height/Length Dosing, 85, kg, 02/02/23 8:45:00 EDT, Weight Dosing Lab Specimen Collect [id number] 2. BMI 30.0-30.9,adult (Z68.30: Body mass index [BMI] 30.0-30.9, adult) BMI education complete Ordered: hydrochlorothiazide, 12.5 mg = 1 cap(s), Oral, Daily, # 30 cap(s), Refills(s) 2, [id number], 166, cm, 02/02/23 8:45:00 EDT, Height/Length Dosing, 85, kg, 02/02/23 8:45:00 EDT, Weight Dosing potassium chloride, 20 mEq = 1 tab(s), Oral, Daily, # 30 tab(s), Refills(s) 6, [id number], 166, cm, 02/02/23 8:45:00 EDT, Height/Length [...] day(s), # 60 tab(s), Refills(s) 1, [id number], 166, cm, 01/05/23 10:05:00 EDT, Height/Length Dosing, 85.2, kg, 01/05/23 10:05:00 EDT, Weight Dosing losartan, 25 mg = 1 tab(s), Oral, BID, X 30 day(s), # 60 tab(s), Refills(s) 2, [id number], 166, cm, 02/02/23 8:45:00 EDT, Height/Length Dosing, 85, kg, 02/02/23 8:45:00 EDT, Weight Dosing potassium chloride, 20 mEq = 1 tab(s), Oral, Daily, # 30 tab(s), Refills(s) 6, [id number], 166, cm, 02/02/23 8:45:00 EDT, Height/Length [...] tablet, extende (more content not included)... Normal [facility] Comment on above: Result Comment: Elec [...] 13.1 g/dL Normal 12.0 - 16.0 gm/dL FT HemeAutoSS MCH (RBC) [Entitic mass] 29.8 pg Normal 27.0 - 34.0 pg FT HemeAutoSS MCHC (RBC) [Mass/Vol] 33.8 g/dL Normal 31.4 - 36.0 gm/dL [facility] MCV (RBC) [Entitic vol] 88.3 fL Normal 80.0 - 100.0 fL FT [facility]eAutoSS Platelet mean volume (Bld) [Entitic vol] 9.0 fL Normal 6.4 - 10.8 fL [facility] Platelets (Bld) [#/Vol] 232.0 E9/L Normal 150.0 - 500.0 E9/L [facility] HemeAutoSS RBC (Bld) [#/Vol] 4.4 E12/L Normal 4.3 - 5.9 E12/L [facility] HemeAutoSS WBC corrected for nucl RBC Auto (Bld) [#/Vol] 6.2 E9/L Normal 4.0 - 11.0 E9/L [facility] HemeAutoSS Lipid Panelon 02-02-2023 Cholesterol [Mass/Vol] 178 mg/dL Normal 120-200 [facility] Comment on above: Performed By: #### 2 371109, 4022982, 30139941, 8785628, 4638088, 6198842 ####[facility] [address] [place] [address] Cholesterol in HDL [Mass/Vol] 59 mg/dL Invalid Interpretation Code [facility] Comment on above: Result Comment: HDL > or equal to 60 mg/dL: Low cardiovascular risk HDL < 40 mg/dL : High cardiovascular risk Performed By: #### 2 530646, 8788072, 15132494, 2506932, 1238895, 0799534 ####[facility] [address] [place] [address] Cholesterol in LDL [Mass/Vol] 107 mg/dL Normal <=129 [facility] Comment on above: Performed By: #### 2 632480, 8450752, 70999182, 7547899, 8753729, 9900664 ####[facility] [address] [place] [address] Cholesterol in VLDL [Mass/Vol] 9 mg/dL Normal 7-40 [facility] Comment on above: Performed By: #### 2 461786, 1486498, 46625275, 4828301, 7282279, 3294815 ####[facility] [address] [place] [address] Triglyceride [Mass/Vol] 47 mg/dL Normal <=149 [facility] Comment on above: Performed By: #### 2 517168, 6642008, 16325778, 6805960, 4996599, 9270849 ####[facility] [address] [place] [address] TSHon 02-02-2023 TSH Qn 2.12 m[IU]/L Normal 0.34-5.60 [facility] Comment on above: Performed By: #### 2 620070, 3716725, 31784681, 2598858, 3080933, 3221996 ####[facility] [address] [place] [address] eGFRon 02-02-2023 GFR/1.73 sq M.predicted among non-blacks MDRD (S/P/Bld) [Vol rate/Area] 74 mL/min/1.73 m2 Normal >=59 [facility] Comment on above: Order Comment: Order added by Discern Expert. Result Comment: [employer] bear kidney disease could be indicated at eGFR's of less than 60 mL/min/1.73m2. Kidney failure is indicated at less than 15 mL/min/1.73m2. Performed By: #### 2 370311, 5021854, 54826595, 2322395, 9736487, 4891479 ####[facility] [address] [place] [address] Ambulatory Visit Summaryon 0 01-05-2023 Ambulatory Visit [...] Appointments Wednesday 8:20 AM EDT Where: [place] [id number]- \.br\ Medications\.br\ What How Much When Why Instructions\.br\ New losartan (losartan 25 mg Tab) 1 Tablets By Mouth 2 times a day BMI 31.0-31.9,adult Non-smoker Hypertension Duration: 30 Days Refills: 1 Pickup at [facility]\.br\ Unchanged albuterol Nebulized inhalation (aerosol) Every 4 [...] Milligram By Mouth Every day\.br\ Pharmacy Information\.br\ [id number]: [address], [place] [phone]\.br\ Allergies\.br\ cefuroxime (Syncope and collapse, Itch)\.br\ amitriptyline (Unknown)\.br\ Problems\.br\ Ongoing - Any problem that you are currently receiving treatment for.\.br\ Allergic rhinitis, seasonal\.br\ Asthma\.br\ BMI 30.0-30.9,adult\.br\ Change in bowel habits\.br\ Chronic UTI\.br\ Diverticulosis\.br\ GERD (gastroesophageal reflux disease)\.br\ HTN (hypertension)\.br\ Migraines\.br\ Osteoporosis\.br\ Personal history of colonic polyps\.br\ Vitamin D deficiency\.br\ \.br\ [facility] Family Medicine Office/Clini c Noteon 01-05-2023 [...] day(s), # 60 tab(s), Refills(s) 1, Pharmacy: [id number], 166, cm, 01/05/23 10:05:00 EDT, Height/Length Dosing, 85.2, kg, 01/05/23 10:05:00 EDT, Weight Dosing losartan, 25 mg = 1 tab(s), Oral, Daily, # 30 tab(s), Refills(s) 1, Pharmacy: [id number], 166, cm, 12/08/22 13:42:00 EDT, Height/Length [...] day(s), # 60 tab(s), Refills(s) 1, [id number], 166, cm, 01/05/23 10:05:00 EDT, Height/Length [...] History Cardia (more content not included)... Normal [facility] Comment on above: Result Comment: Elec tronically Signed By: Sabina Ruth\.br\Date and Time Signed: 01/05/23 12:40 EDT Patient Logson 01-05-2023 Patient Logs [id number]:[id number] Normal [facility] Orthopedic Office/Clinic Not otilio 05-06-2022 Orthopedic Office/Clinic [...] Zheng Bojorquez MD 05/06/22 10:34 EST Normal [facility] XR Knee 1 or 2 Views [...] Electronically Signed in Other Vendor System) Normal [facility] MG MAMM SCREEN 3D JAMES CADon 12-19-2021 MG MAMM SCREEN 3D JAMES CAD Patient: NORI PRESTON Exam Date: 12/19/2021 : 1940 Gender:F Ordering : DR MAGO FREEDMAN . Admission #: [id number] Family : Order #: [id number] CLICK HERE TO VIEW EXAM RADIOLOGY REPORT [...] colon cancer at age 69. LOCATION: [facility] BREAST COMPOSITION: Extremely dense, which lowers [...] MD on 12/19/2021 at 13:46 Normal [facility] CBC AUTO DIFFon 12-12-2021 BASO # 0.0 103/ul Normal 0.0-0.1 [facility] Comment on above: Performed By: #### C BC #### [facility] [address] [place] [address] Dr. Kaiser García Basophils/100 WBC (Bld) 0.3 % Normal 0.2-2.0 [facility] Comment on above: Performed By: #### C BC #### [facility] [address] [place] [address] Dr. Kaiser García EO # 0.1 103/ul Normal 0.0-0.7 [facility] Comment on above: Performed By: #### C BC #### [facility] [address] [place] [address] Dr. Kaiser García Eosinophils/100 WBC (Bld) 1.9 % Normal 0.9-7.0 [facility] Comment on above: Performed By: #### C BC #### [facility] [address] [place] [address] Dr. Kaiser García Erythrocyte distribution width (RBC) [Ratio] 13.9 % Normal 11.0-15.0 [facility] Comment on above: Performed By: #### C BC #### [facility] [address] [place] [address] Dr. Kaiser García Hematocrit (Bld) [Volume fraction] 38.5 % Normal 36.0-48.0 [facility] Comment on above: Performed By: #### C BC #### [facility] [address] [place] [address] Dr. Kaiser García Hemoglobin (Bld) [Mass/Vol] 12.0 g/dL Normal 12.0-16.0 [facility] Comment on above: Performed By: #### C BC #### [facility] [address] [place] [address] Dr. Kaiser García IG # 0.03 10e3/ul Normal 0.00-0.03 [facility] Comment on above: Performed By: #### C BC #### [facility] [address] [place] [address] Dr. Kaiser García IG % 0.4 % Normal 0.0-0.5 [facility] Comment on above: Performed By: #### C BC #### [facility] [address] [place] [address] Dr. Kaiser García LYMPH # 2.5 103/ul Normal 1.2-3.8 [facility] Comment on above: Performed By: #### C BC #### [facility] [address] [place] [address] Dr. Kaiser García Lymphocytes/100 WBC (Bld) 35.7 % Normal 20.5-60.0 [facility] Comment on above: Performed By: #### C BC #### [facility] [address] [place] [address] Dr. Kaiser García MANUAL DIFF REQ NO Normal [facility] Comment on above: Performed By: #### C BC #### [facility] [address] [place] [address] Dr. Kaiser García MCH (RBC) [Entitic mass] 28.5 pg Normal 26.7-34.0 [facility] Comment on above: Performed By: #### C BC #### [facility] [address] [place] [address] Dr. Kaiser García MCHC (RBC) [Mass/Vol] 31.2 g/dL Normal 29.9-35.2 [facility] Comment on above: Performed By: #### C BC #### [facility] [address] [place] [address] Dr. Kaiser García MCV (RBC) [Entitic vol] 91.4 fL Normal 81.0-99.0 [facility] Comment on above: Performed By: #### C BC #### [facility] [address] [place] [address] Dr. Kaiser García MONO # 0.6 103/ul Normal 0.3-0.8 [facility] Comment on above: Performed By: #### C BC #### [facility] [address] [place] [address] Dr. Kaiser García Monocytes/100 WBC (Bld) 8.7 % Normal 1.7-12.0 [facility] Comment on above: Performed By: #### C BC #### [facility] [address] [place] [address] Dr. Kaiser García NEUT # 3.7 103/ul Normal 1.4-6.5 [facility] Comment on above: Performed By: #### C BC #### [facility] [address] [place] [address] Dr. Kaiser García Neutrophils/100 WBC (Bld) 53.0 % Normal 43.0-75.0 [facility] Comment on above: Performed By: #### C BC #### [facility] [address] [place] [address] Dr. Kaiser García Platelet mean volume (Bld) [Entitic vol] 9.4 fL Critically low 9.5-13.5 [facility] Comment on above: Performed By: #### C BC #### [facility] [address] [place] [address] Dr. Kaiser García PLT 244 103/ul Normal 150-450 [facility] Comment on above: Performed By: #### C BC #### [facility] [address] [place] [address] Dr. Kaiser García RBC 4.21 106/ul Normal 4.20-5.40 [facility] Comment on above: Performed By: #### C BC #### [facility] [address] [place] [address] [address] Kaiser García WBC 6.9 103/ul Normal 4.0-11.0 [facility] Comment on above: Performed By: #### C BC #### [facility] [address] [address] [address] Kaiser García PROF 14(COMP METB)on 022 Albumin [Mass/Vol] 3.6 g/dL Normal 3.4-5.0 [facility] Comment on above: Performed By: #### C MP, TSH ####[facility] [address] [place] [address]DrNia García Albumin/Globulin [Mass ratio] 1.1 {ratio} Normal [facility] Comment on above: Performed By: #### C MP, TSH ####[facility] [address] [place] [address]Dr. Kaiser García ALP [Catalytic activity/Vol] 51 U/L Normal 46-116 [facility] Comment on above: Performed By: #### C MP, TSH ####[facility] [address] [place] [address]Dr. Kaiser García ALT [Catalytic activity/Vol] 19 U/L Normal 14-59 [facility] Comment on above: Performed By: #### C MP, TSH ####[facility] [address] [place] [address]DrNia García Anion gap [Moles/Vol] 11.6 mmol/L Normal [facility] Comment on above: Performed By: #### C MP, TSH ####[facility] [address] [place] [address]Dr. Kaiser García AST [Catalytic activity/Vol] 14 U/L Critically low 15-37 [facility] Comment on above: Performed By: #### C MP, TSH ####[facility] [address] [place] [address]Dr. Kaiser García Bilirubin [Mass/Vol] 0.3 mg/dL Normal 0.2-1.0 [facility] Comment on above: Performed By: #### C MP, TSH ####[facility] [address] [place] [address]Dr. Kaiser García Calcium [Mass/Vol] 9.0 mg/dL Normal 8.5-10.1 [facility] Comment on above: Performed By: #### C MP, TSH ####[facility] [address] [place], [place] [address]Dr. Kaiser García Chloride [Moles/Vol] 104 mmol/L Normal 98-107 [facility] Comment on above: Performed By: #### C MP, TSH ####[facility] [address] [place], [place] [address]Dr. Kaiser García CO2 [Moles/Vol] 28.4 mmol/L Normal 21.0-32.0 [facility] Comment on above: Performed By: #### C MP, TSH ####[facility] [address] [place], [place] [address]Dr. Kaiser García Creatinine [Mass/Vol] 0.73 mg/dL Normal 0.55-1.02 [facility] Comment on above: Performed By: #### C MP, TSH ####[facility] [address] [place], [place] [address]Dr. Kaiser García EGFR-AF CITIZ[place] >60 Normal >=60 [facility] Comment on above: Performed By: #### C MP, TSH ####[facility] [address] [place], [place] [address]Dr. Kaiser García EGFR-NON AF CITIZEN [place] >60 Normal >=60 [facility] Comment on above: Performed By: #### C MP, TSH ####[facility] [address] [place] [address]Dr. Kaiser García Globulin (S) [Mass/Vol] 3.4 g/dL Normal [facility] Comment on above: Performed By: #### C MP, TSH ####[facility] [address] [place], [place] [address]Dr. Kaiser Ricky Glucose [Mass/Vol] 73 mg/dL Critically low 74-106 [facility] Comment on above: Performed By: #### C ROBBY, TSH ####[facility] [address] [place] [address]Dr. Kaiser García Potassium [Moles/Vol] 4.0 mmol/L Normal 3.5-5.1 [facility] Comment on above: Performed By: #### C ROBBY, TSH ####[facility] [address] [place] [address]Dr. Kaiser García Protein [Mass/Vol] 7.0 g/dL Normal 6.4-8.2 [facility] Comment on above: Performed By: #### C ROBBY, TSH ####[facility] [address] [place], [place] [address]Dr. Kaiser Ricky Sodium [Moles/Vol] 140 mmol/L Normal 136-145 [facility] Comment on above: Performed By: #### C ROBBY, TSH ####[facility] [address] [place] [address]Dr. Kaiser Ricky Urea nitrogen [Mass/Vol] 23.0 mg/dL Critically high 7.0-18.0 [facility] Comment on above: Performed By: #### C ROBBY, TSH ####[facility] [address] [place], [place] [address]Dr. Kaiser Ricky Urea nitrogen/Creatinine [Mass ratio] 31.5 mg/mg Normal [facility] Comment on above: Performed By: #### C ROBBY, TSH ####[facility] [address] [place], [place] [address]Dr. Kiaser García TSHon 12-12-2021 TSH 1.112 uIU/mL Normal 0.358-3.740 [facility] Comment on above: Performed By: #### C ROBBY, TSH ####[facility] [address] [place], [place] [address]Dr. Kaiser García XR CHEST 1 Von 12-04-2021 [...] Mesfin LIZ Date: 2021-12-03 23:19 Normal [facility] CBC AUTO DIFFon 12-03-2021 BASO # 0.0 103/ul Normal 0.0-0.1 [facility] Comment on above: Performed By: #### C BC #### [facility] [address] [place] [address] Dr. Kaiser García Basophils/100 WBC (Bld) 0.3 % Normal 0.2-2.0 [facility] Comment on above: Performed By: #### C BC #### [facility] [address] [place] [address] Dr. Kaiser García EO # 0.1 103/ul Normal 0.0-0.7 [facility] Comment on above: Performed By: #### C BC #### [facility] [address] [place] [address] Dr. Kaiser García Eosinophils/100 WBC (Bld) 1.0 % Normal 0.9-7.0 [facility] Comment on above: Performed By: #### C BC #### [facility] [address] [place] [address] Dr. Kaiser García Erythrocyte distribution width (RBC) [Ratio] 13.8 % Normal 11.0-15.0 [facility] Comment on above: Performed By: #### C BC #### [facility] [address] [place] [address] Dr. Kaiser García Hematocrit (Bld) [Volume fraction] 38.5 % Normal 36.0-48.0 [facility] Comment on above: Performed By: #### C BC #### [facility] [address] [place] [address] Dr. Kaiser García Hemoglobin (Bld) [Mass/Vol] 12.4 g/dL Normal 12.0-16.0 [facility] Comment on above: Performed By: #### C BC #### [facility] [address] [place] [address] Dr. Kaiser García IG # 0.01 10e3/ul Normal 0.00-0.03 [facility] Comment on above: Performed By: #### C BC #### [facility] [address] [place] [address] Dr. Kaiser García IG % 0.2 % Normal 0.0-0.5 [facility] Comment on above: Performed By: #### C BC #### [facility] [address] [place] [address] Dr. Kaiser García LYMPH # 2.0 103/ul Normal 1.2-3.8 [facility] Comment on above: Performed By: #### C BC #### [facility] [address] [place] [address] Dr. Kaiser García Lymphocytes/100 WBC (Bld) 32.4 % Normal 20.5-60.0 [facility] Comment on above: Performed By: #### C BC #### [facility] [address] [place] [address] Dr. Kaiser García MANUAL DIFF REQ NO Normal [facility] Comment on above: Performed By: #### C BC #### [facility] [address] [place] [address] Dr. Kaiser García MCH (RBC) [Entitic mass] 28.8 pg Normal 26.7-34.0 [facility] Comment on above: Performed By: #### C BC #### [facility] [address] [place] [address] Dr. Kaiser García MCHC (RBC) [Mass/Vol] 32.2 g/dL Normal 29.9-35.2 [facility] Comment on above: Performed By: #### C BC #### [facility] [address] [place] [address] Dr. Kaiser García MCV (RBC) [Entitic vol] 89.3 fL Normal 81.0-99.0 [facility] Comment on above: Performed By: #### C BC #### [facility] [address] [place] [address] Dr. Kaiser García MONO # 0.3 103/ul Normal 0.3-0.8 [facility] Comment on above: Performed By: #### C BC #### [facility] [address] [place] [address] Dr. Kaiser García Monocytes/100 WBC (Bld) 4.2 % Normal 1.7-12.0 [facility] Comment on above: Performed By: #### C BC #### [facility] [address] [place] [address] Dr. Kaiser García NEUT # 3.9 103/ul Normal 1.4-6.5 [facility] Comment on above: Performed By: #### C BC #### [facility] [address] [place] [address] Dr. Kaiser García Neutrophils/100 WBC (Bld) 61.9 % Normal 43.0-75.0 [facility] Comment on above: Performed By: #### C BC #### [facility] [address] [place] [address] Dr. Kaiser García Platelet mean volume (Bld) [Entitic vol] 10.1 fL Normal 9.5-13.5 [facility] Comment on above: Performed By: #### C BC #### [facility] [address] [place] [address] Dr. Kaiser García PLT 175 103/ul Normal 150-450 [facility] Comment on above: Performed By: #### C BC #### [facility] [address] [place] [address] Dr. Kaiser García RBC 4.31 106/ul Normal 4.20-5.40 [facility] Comment on above: Performed By: #### C BC #### [facility] [address] [place] [address] Dr. Kaiser García WBC 6.2 103/ul Normal 4.0-11.0 [facility] Comment on above: Performed By: #### C BC #### [facility] [address] [place] [address] Dr. Kaiser García PROF 14(COMP METB)on 022 Albumin [Mass/Vol] 3.6 g/dL Normal 3.4-5.0 [facility] Comment on above: Performed By: #### H JAMIRPN, CMP #### [facility] [address] [address] [address] Kaiser García Albumin/Globulin [Mass ratio] 1.0 {ratio} Normal [facility] Comment on above: Performed By: #### H JAMIRPN, CMP #### [facility] [address] [address] [address] Kaiser García ALP [Catalytic activity/Vol] 54 U/L Normal 46-116 [facility] Comment on above: Performed By: #### H DEEPALI, CMP #### [facility] [address] [address] [address] Kaiser García ALT [Catalytic activity/Vol] 17 U/L Normal 14-59 [facility] Comment on above: Performed By: #### H DEEPALI, CMP #### [facility] [address] [address] [address] Kaiser García Anion gap [Moles/Vol] 15.4 mmol/L Normal [facility] Comment on above: Performed By: #### H DEEPALI, CMP #### [facility] [address] [address] [address] Kaiser García AST [Catalytic activity/Vol] 21 U/L Normal 15-37 [facility] Comment on above: Performed By: #### H JAMIRPN, CMP #### [facility] [address] [address] [address] Kaiser García Bilirubin [Mass/Vol] 0.4 mg/dL Normal 0.2-1.0 [facility] Comment on above: Performed By: #### H STROPN, CMP #### [facility] [address] [address] [address] Kaiser García Calcium [Mass/Vol] 9.1 mg/dL Normal 8.5-10.1 [facility] Comment on above: Performed By: #### H JAMIRPN, CMP #### [facility] [address] [address] [address] Kaiser García Chloride [Moles/Vol] 101 mmol/L Normal 98-107 [facility] Comment on above: Performed By: #### H STROPN, CMP #### [facility] [address] [place] [address] Dr. Kaiser García CO2 [Moles/Vol] 22.4 mmol/L Normal 21.0-32.0 [facility] Comment on above: Performed By: #### H STROPN, CMP #### [facility] [address] [place] [address] Dr. Kaiser García Creatinine [Mass/Vol] 1.19 mg/dL Critically high 0.55-1.02 [facility] Comment on above: Performed By: #### H STROPN, CMP #### [facility] [address] [place] [address] Dr. Kaiser García EGFR-AF [place]IZ[place] 53 mL/min/1.73m2 Critically low >=60 [facility] Comment on above: Performed By: #### H STROPN, CMP #### [facility] [address] [place] [address] Dr. Kaiser García EGFR-NON AF CITIZEN OF [place] 44 mL/min/1.73m2 Critically low >=60 [facility] Comment on above: Performed By: #### H STROPN, CMP #### [facility] [address] [place] [address] Dr. Kaiser García Globulin (S) [Mass/Vol] 3.5 g/dL Normal [facility] Comment on above: Performed By: #### H STROPN, CMP #### [facility] [address] [place] [address] Dr. Kaiser García Glucose [Mass/Vol] 220 mg/dL Critically high 74-106 [facility] Comment on above: Performed By: #### H STROPN, CMP #### [facility] [address] [place] [address] Dr. Kaiser García Potassium [Moles/Vol] 3.8 mmol/L Normal 3.5-5.1 [facility] Comment on above: Performed By: #### H STROPN, CMP #### [facility] [address] [address] [address] Kaiser García Protein [Mass/Vol] 7.1 g/dL Normal 6.4-8.2 [facility] Comment on above: Performed By: #### H STROPN, CMP #### [facility] [address] [address] [address] Kaiser García Sodium [Moles/Vol] 135 mmol/L Critically low 136-145 [facility] Comment on above: Performed By: #### H STROPN, CMP #### [facility] [address] [address] [address] Kaiser García Urea nitrogen [Mass/Vol] 22.0 mg/dL Critically high 7.0-18.0 [facility] Comment on above: Performed By: #### H STROPN, CMP #### [facility] [address] [address] [address] Kaiser García Urea nitrogen/Creatinine [Mass ratio] 18.5 mg/mg Normal [facility] Comment on above: Performed By: #### H STROPN, CMP #### [facility] [address] [address] [address] Kaiser García TROPONIN, HIGH SENSITIVITYon 12-03-2021 HSTROP 9.4 pg/mL Normal 4.0-51.3 [facility] Comment on above: Result Comment: CUT- OFF POINTS HAVE BEEN ESTABLISHED BASED ON THE FOURTH UNIVERSAL DEFINITIONS OF MYOCARDIAL INFARCTION. THE UPPER REFERENCE LIMIT (URL) OF TROPONIN, DEFINED THE 99TH PERCENTILE OF cTnI DISTRIBUTION IN A REFERENCE POPULATION, HAS BEEN CONFIRMED THE DECISION THRESHOLD FOR [place] DIAGNOSIS. Performed By: #### H STROPN, CMP #### [facility] [address] [address] [address] Kaiser García Covid-19 PCR (CVDTB)on 11-17 SARS-CoV-2 (COVID-19) RNA DANIEL+probe Ql (Unsp spec) Not detected Normal NOT DETECTED [facility] Comment on above: Result Comment: This test is not yet approved or cleared by the [place] FDA. When there are no FDA-approved or cleared tests available, and other criteria are met, FDA can make tests available under an emergency access mechanism called an Emergency Use Authorization (EUA). The EUA for this test is supported by the [employer] of Health and Human Service's (HHS's) declaration [...] consistent with SARS-CoV-2. Performed By: #### C [facility] #### [facility] [address] [place] [address] Dr. Kaiser García US ISABELLA DOP LEG LTon 10-18-19 US ISABELLA DOP LEG LT EXAMINATION: US [...] by: BERNARD REZA Date: 2021-10-17 16:45 Normal [facility] Encounters Encounter Date Encounter Type Care Provider Facility Start: 05-08-2024 ambulatory Mago Freedman MD Fa cility[facility] Start: 12-24-2023 End: 12-24-2023 ambulatory NEGRITO Mckeon Facility:[facility] Start: 12-22-2023 End: 12-22-2023 ambulatory CAPO HANDY Not Available Start: 12-03-2023 End: 12-03-2023 ambulatory NUMBERER AND WIRER Sabina L Linda Facility: [facility] Start: 12-02-2023 End: 12-02-2023 ambulatory NUMBERER AND WIRER Sabina L Linda Facility:[facility] Start: 10-18-2023 End: 10-18-2023 ambulatory CAPO H HANDY Not Available Start: 08-24-2023 End: 08-24-2023 Lab Drop off Sabina L Linda [facility] Start: 08-24-2023 End: 08-24-2023 ambulatory NUMBERER AND WIRER Sabina L Linda Facility:[facility] Start: 08-12-2023 End: 08-12-2023 ambulatory CAPO H HANDY Not Available Start: 06-08-2023 End: 06-08-2023 ambulatory CAPO H HANDY Not Available Start: 04-01-2023 End: 04-01-2023 ambulatory CAPO H HANDY Not Available Start: 03-23-2023 End: 03-23-2023 ambulatory NUMBERER AND WIRER Sabina L Linda Facility: [facility] Start: 03-16-2023 End: 03-16-2023 ambulatory NUMBERER AND WIRER Sabina L Linda Facility: [facility] Start: 02-02-2023 End: 02-02-2023 Lab Drop off Sabina L Linda [facility] Start: 02-02-2023 End: 02-02-2023 ambulatory NUMBERER AND WIRER Sabina L Linda Facility:[facility] Start: 01-05-2023 End: 01-05-2023 ambulatory NUMBERER AND WIRER Sabina L Linda Facility: [facility] Start: 06-05-2022 End: 06-18-[address] MAGO FREEDMAN . Facility: Start: 05-06-2022 End: 05-07-2022 ambulatory Mago Freedman MD Facility:[facility] Start: 12-24-2021 End: [...] End: 08-20-[address] MAGO FREEDMAN . Facility: Procedures Date Procedure Procedure Detail Performing Clinician [...] Linda Dilation of urethra Sabina Herbert wab Plan of Treatment Date Care Activity Detail Author Start: 12-07-2024 ambulatory Ambulatory Facility: [facility] Start: 02-24-2024 ambulatory Ambulatory Facility:[facility] Immunizations Immunization Date Immunization Notes Care Provider Jennifer alicea 03-16-2023 SARS-CoV-2 mRNA (tozinameran 5y-11y) vaccine Sabina Linda [facility] Comment on above: Result Comment: covi d 19 vishal-sucrose 02-23-2022 SARS-CoV-2 (COVID-19 ) mRNAMUL.[id number] Sabina Linda [facility] 02-10-2022 influenza virus vaccine, unspecified formulation Sabina Linda [facility] 11-12-2021 SARS-CoV-2 mRNA (wziodqabeph-wgad-rguxr se) vaccine Sabina Linda [facility] 01-23-2021 SARS-CoV-2 (COVID-19 ) mRNA BNT-162b2 vax Sabina Linda [facility] Comment on above: Result Comment: 2022: [id number] 06-12-2020 SARS-CoV-2 (COVID-19 ) mRNA BNT-162b2 vax Sabina Linda [facility] Comment on above: Result Comment: 2022: TPV75 05-22-2020 SARS-CoV-2 (COVID-19 ) mRNA BNT-162b2 vax Sabina Linda [facility] Comment on above: Result Comment: 2022: [id number] 01-26-2020 influenza virus vaccine, unspecified formulation Sabina Linda [facility] 04-19-2019 pneumococcal conjuga te vaccine, 13 valent Sabina Linda [facility] 02-23-2019 influenza virus vaccine, unspecified formulation Sabina Linda [facility] 05-25-2018 pneumococcal polysaccharide vaccine, 23 valent Sabina Linda [facility] 02-15-2018 influenza virus vaccine, unspecified formulation Sabina Linda [facility] 02-24-2017 influenza virus vaccine, unspecified formulation Sabina Linda [facility] 03-06-2016 pneumococcal conjuga te vaccine, 13 valent Sabina Linda [facility] 02-20-2016 influenza virus vaccine, unspecified formulation Sabina Linda [facility] 02-20-2014 influenza virus vaccine, unspecified formulation Sabina Linda [facility] 02-22-2013 influenza virus vaccine, unspecified formulation Sabina Linda [facility] 03-06-2010 influenza virus vaccine, unspecified formulation Sabina Linda [facility] 02-05-2009 influenza, whole Sabina Linda [facility] NEGATED: Highlighted row has not occurred!07-01-2021 influenza virus vaccine, unspecified formulation Sabina Linda [facility] [place] Payers Date Payer Category Payer Medicare 2020 Unknown 1959 Medicare [id number] 1957 Unknown [id number] 1940 Unknown [id number] 2.16.84 0.1.024476.3.579.2.593 1940 Unknown [id number] 2.16.84 0.1.544665.3.579.2.593 1940 Unknown [id number] 2.16.84 0.1.852978.3.579.2.593 1940 Unknown [id number] 2.16.84 0.1.889905.3.579.2.593 1942 Unknown [id number] 2.16.84 0.1.060657.3.579.2.593 1942 Unknown [id number] 2.16.84 0.1.109780.3.579.2.593 1942 Unknown [id number] 2.16.84 0.1.614485.3.579.2.593 1942 Unknown [id number] 2.16.84 0.1.294643.3.579.2.593 1942 Unknown [id number] 2.16.84 0.1.810573.3.579.2.593 1942 Unknown [id number] 2.16.84 0.1.725946.3.579.2.593 1942 Unknown [id number] 2.16. 840.1.412222.3.579.2.196 1942 Unknown [id number] 2.16. 840.1.878506.3.579.2.196 1942 Unknown [id number] 2.16.84 0.1.807716.3.579.2.1259 1942 Unknown [id number] 2.16.84 0.1.274428.3.579.2.1259 1942 Unknown [id number] 2.16.84 0.1.589682.3.579.2.1259 1942 Unknown [id number] 2.16.84 0.1.883701.3.579.2.1259 1942 Unknown [id number] 2.16.840 .1.374831.3.579.2.1259 1942 Unknown [id number] 2.16.8 40.1.397082.3.579.2.727 1942 Unknown [id number] 2.16.8 40.1.513556.3.579.2.727 1942 Unknown [id number] 2.16.8 40.1.836478.3.579.2.727 1942 Unknown [id number] 2.16.8 40.1.841017.3.579.2.727 1942 Unknown [id number] 2.16.8 40.1.345270.3.579.2.72 1942 Unknown [id number] 2.16.8 40.1.305238.3.579.2.72 1942 Unknown [id number] 2.16.8 40.1.396383.3.579.2.72 1942 Unknown [id number] 2.16.8 40.1.063575.3.579.2.727 1942 Unknown [id number] 2.16.8 40.1.522951.3.579.2.72 1942 Unknown [id number] 2.16.8 40.1.745130.3.579.2.72 1942 Unknown [id number] 2.16.8 40.1.156664.3.579.2.72 1942 Unknown [id number] 2.16.8 40.1.738522.3.579.2.727 1942 Unknown [id number] 2.16.8 40.1.543765.3.579.2.727 Social History Date Type Detail Facility Start: 02-02-2023 End: 08-24-2023 Tobacco smoking status Never smoked tobacco (finding) [facility] Tobacco smoking status Never Fishe [facility] Sex Assigned At Female [facility] Medical Equipment Procedure Code Equipment Code Equipment Origin al Text Equipment Identifier Dates CATARACT EXTRACT ION W/ INTRAOCULAR LENS Deneen Moseley DOhan 04/30/20 Non Biological Eye L [id number] [facility] Start: 04-30-2020 CATARACT EXTRACT ION W/ INTRAOCULAR LENS Pradip HUNT Fredy 1/26/21 Non Biological Eye R {[id number] [facility] Start: 05-14-2020 Clinical Note 12-03-2023 Note Date [...] wine (148 mL), (more content not included)... [facility] Clinical Note 09-24-2021 Note Date & [...] the pathology report. CC: Mago Freedman M.D. [facility] Signed and Approved by: DR LAMAR SEXTON . 09/25/2021 12:58:00 [facility] Clinical Note 08-20-2021 Note Date & Type [...] after different prep. CC: Mago Freedman M.D. [facility] Signed and Approved by: DR LAMAR SEXTON . 08/21/2021 07:27:00 [facility] Evaluation + Plan note Note Date & Type Note Facility Evaluation + Plan note Future Appointments Appointment Date:03/16/2023 09:00:00 AM Scheduled Provider:Sabina Ruth Location:[facility] Appointment Type: Open Appointment Date:12/03/2023 02:00:00 PM Scheduled Provider: Location:[facility] Appointment Type: Medicare Wellness Subsequent [facility] Evaluation + Plan note Note Date & Type Note Facility Evaluation + Plan note Future Appointments Appointment Date:11/25/2023 01:00:00 PM Scheduled Provider: Location:[facility] Appointment Type:FM Medicare Wellness Subsequent Appointment Date:02/24/2024 10:00:00 AM Scheduled Provider:Sabina Ruth Location:[facility] Appointment Type:FM Open [facility] Hospital course Narrative Note Date & Type Note Facility Hospital course Narrative No data available for this section [facility] Hospital Discharge instructions Note Date & Type Note Facility Hospital Discharge instructions No data available for this section [facility] Progress note Note Date & Type Note Facility Progress note No data available for this section [facility] Summary Purpose Family History No Family [...] section and content) DATE CREATED AUTHOR 07/25/2022 [facility] DATE CREATED AUTHOR AUTHOR'S ORGANIZ ATION 05/03/2023 [facility] DATE CREATED AUTHOR AUTHOR'S ORGANIZ ATION 12/23/2023 [facility] DATE CREATED AUTHOR AUTHOR'S ORGANIZ ATION 12/25/2023 [facility] Patient Care team informatio n (unrecognized section and content) Personnel Name: Sabina Ruth Address: Address: [address] [place] [address]- Personnel Name: Sabina Ruth Address: Address: [address] [place] [address]- FOR RECORDS PERTAINING TO PATIENTS WHO ARE [...] BE BASED ON THE PRIMARY CLINICAL RECORDS. [facility] [employer] [facility]. provides no warranty or guarantee of the accuracy or completeness of information in this document.
== END 2023-12-27 11:20 | disposition home or self-care (01) ==
LOC: EC 11:19
PROVIDERS: PCP Nurse Practitioner; Visit Provider Orthopaedic Surgery
DX: Z12.31 Encounter for screening mammogram for malignant neoplasm of breast (principal); Z80.3 Family history of malignant neoplasm of breast; Z80.0 Family history of malignant neoplasm of digestive organs; S52.592D Other fractures of lower end of left radius, subsequent encounter for closed fracture with routine healing
CPT/HCPCS: 73110; 77063; 77067

== ENCOUNTER 2024-01-17 08:29 | Outpatient (OUT) | payer MEDICARE, OTHER, SELFPAY ==
--- NOTE | 2024-01-17 | XR_ITS ---
The [address] [address] Patient Name: NIMCO PRESTON MRN: [id number] date: 1940 Sex: F Assigned Patient Location: Current Patient Location: Accession/Order Number: [id number] Exam Date: 01/17/2024 08:30 Report Date: 01/17/2024 12:53 At the request of: RONEY CHOI Procedure: XR wrist LT min 3V PROCEDURE: XR wrist LT min 3V COMPARISON: 12/27/2023 HISTORY: LEFT WRIST PAIN FINDINGS: BONES:Stable healing distal intra-articular radius fracture evidenced by increased sclerosis. No new fracture or dislocation. Degenerative changes most significant along the medial carpus SOFT TISSUES:Negative. No visible soft tissue swelling. EFFUSION:None visible. OTHER: Negative. XR/XR wrist LT min 3V IMPRESSION: Stable healing distal radius fracture Electronically authenticated by: BERNARD REZA Date: 01/17/2024 12:53
== END 2024-01-17 08:30 | disposition home or self-care (01) ==
LOC: EC 08:29
PROVIDERS: PCP Nurse Practitioner; Visit Provider Orthopaedic Surgery
DX: S52.592D Other fractures of lower end of left radius, subsequent encounter for closed fracture with routine healing (principal)
CPT/HCPCS: 73110

== ENCOUNTER 2024-02-24 10:46 | Outpatient (OUT) | payer MEDICARE, OTHER, SELFPAY ==
--- OUTSIDE RECORDS SUMMARY | 2024-02-24 10:50 | XMS_ITS | CCD ---
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 Role Phone TANO ., DR MAGO [...] MAGO Oh Primary Care Unavailable Linda, Sabina Hall Primary Care Physician [phone] Tano EDEN, Mago Self Primary Care Unavaildillon Bojorquez MD, Zheng Thompson Attending Rosa Isela Freedman MD, Mago Self Primary Care Unavaildillon Bojorquez MD, Zheng Thompson Attending Rosa Isela HANDY, CAPO H Attending Unavailable HANDY, CAPO H Attending Unavailable HANDY, CAPO H Attending Unavailable HANDY, CAPO H Attending Unavailable HANDY, CAPO H Attending Unavailable Linda, Sabina L Attending Unavailable Linda, Sabina L Admitting Unavailable Linda, Sabina L Attending Unavailable ANNE, MONICA A Attending Unavailable Linda, Sabina L Attending Unavailable Linda, Sabina L Attending Unavailable Linda, Sabian L Attending Unavailable Linda, Sabina L Attending Unavailable Linda, Sabina L Attending Unavailable Linda, Sabina L Attending Unavailable Linda, Sabina L Attending Unavailable Allergies Allergy Classification Reported Allergen(s) Allergy Type Date of Onset Reaction(s) Facility (2 sources) Amitriptyline; Translations: [amitriptyline] Drug Allergy [facility] Repository (1 source) Cephalexin Drug Allergy [facility] Repository (2 sources) Amitriptyline; Translations: [amitriptyline] Drug Allergy Unknown (qualifier value) [facility] [place] (3 sources) Cefuroxime; Translations: [cefuroxime] Drug Allergy Syncope and collapse (disorder), Itching (finding) [facility] (2 sources) No Known Medication Allergies; Translations: [No Known Medication Allergies] Propensity to adverse reactions to drug (disorder) [facility] Repository Medications Current Medications Medication Drug Class(es) Dates Sig (Normalized) Sig (Original) acetaminophen 325 mg / butalbital 50 mg / caffeine 40 mg oral tablet (1 source) Barbiturate, Central Nervous System Stimulant, Methylxanthine Start: 03-16-2023 take 1 tablet by mouth every four hours APAP/butalbital/c affeine 325 mg-50 mg-40 mg Tab 1 tab(s), Oral, q4hr Headache, 30 tab(s), Refill(s) 0, [facility]/pharmacy #[id number], 166, cm, 11/28/23 9:10:00 EST, Height/Length Dosing, 85.6, kg, 03/16/23 [...] q7day, # 12 tab(s), Refills(s) 0, Pharmacy: [facility]/pharmacy #[id number], 166, cm, 08/24/23 8:56:00 EDT, Height/Length [...] AFTER, # 6 caplet(s), Refills(s) 1, Pharmacy: [facility]/pharmacy #[id number], 166, cm, 08/24/23 8:56:00 EDT, Height/Length [...] Daily, # 90 tab(s), Refills(s) 1, Pharmacy: [facility]/pharmacy #[id number], 166, cm, 03/16/23 9:10:00 EST, Height/Length [...] Daily, # 90 cap(s), Refills(s) 3, Pharmacy: [facility]/pharmacy #[id number], 166, cm, 02/02/23 8:45:00 EDT, Height/Length Dosing, 85, kg, 02/02/23 8:45:00 EDT, Weight Dosing Start Date: 02/26/23 Status: Ordered Start: 02-02-2023 take 1 capsule by [facility] once daily hydrochlorothiazide 12.5 mg Cap 12.5 mg = 1 cap(s), Oral, Daily, # 30 cap(s), Refills(s) 2, Pharmacy: [facility]/pharmacy #[id number], 166, cm, 02/02/23 8:45:00 EDT, Height/Length Dosing, 85, kg, 02/02/23 8:45:00 EDT, Weight Dosing Start Date: 02/02/23 Status: Ordered losartan potassium 25 mg oral tablet (2 sources) Angiotensin 2 Receptor Peter Start: 05-25-2023 take 1 tablet by mouth twice daily losartan 25 mg Tab 25 mg = 1 tab(s), Oral, BID, # 180 tab(s), Refills(s) 3, Pharmacy: [facility]/pharmacy #[id number], 166, cm, 03/16/23 9:10:00 EST, Height/Length Dosing, 85.6, kg, 03/16/23 9:10:00 EST, Weight Dosing Start Date: 05/25/23 Status: Ordered Start: 02-02-2023 End: 05-03-2023 take 1 tablet by mouth twice daily losartan 25 mg Tab 25 mg = 1 tab(s), Oral, BID, X 30 day(s), # 60 tab(s), Refills(s) 2, Pharmacy: [facility]/pharmacy #[id number], 166, cm, 02/02/23 8:45:00 EDT, Height/Length Dosing, 85, kg, 02/02/23 8:45:00 EDT, Weight Dosing Start Date: 02/02/23 Stop Date: 05/03/23 Status: Ordered [facility] Medication (1 source) Start: 12-01-2022 [facility] Medicatio n Daily Start Date: 12/01/22 Status: [...] Daily, # 90 tab(s), Refills(s) 1, Pharmacy: [facility]/pharmacy #[id number], 166, cm, 08/24/23 8:56:00 EDT, Height/Length [...] 09-30-2021 Episodic Other aftercare (1 source) 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; Translations: [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] Onset: 12-05-2021 Episodic Other [...] Results Test Name Value Interpretation Reference Range [facility] Family Medicine Office/Clini c Noteon 02-15-2024 Family Medicine Office/Clinic Note Family Medicine Office/Clinic Note HPI Staff Nori is a 83 year old female presenting with cough, congested Onset: Wednesday Body aches: no Chills: no Fatigue: yes Cough: yes Sore throat: no did last week Fever: no Headache: yes Nasal congestion: yes Loss of taste: no Loss of smell: no Eye itching/watering: yes Sneezing: yes SOB: yes Known Exposure: no Remedies tried: Nyquil did help a little bit ibuprofen this morning for head this did seem to help COVID tested IO today-negative History of Present Illness 83 year old patient of Rosalio Mckeon CNP presents today for an acute visit for evaluation of cough and congestion x two days. She reports fatigue, cough, nasal congestion with white mucus, some sneezing and itchy watery eyes. She reports her was sick last week with a head cold and his went away on its own. She wanted to make sure she does not have pneumonia. Review of Systems PHQ Score Initial Depression Screen Score: 0 SCORE Constitutional: no fever, no chills, no sweats, no weakness Skin: no Jaundice, no rash, no lesions, nopetechiae ENMT: no ear pain, no sore throat, no congestion, no hoarseness Respiratory: no shortness of breath, no cough, no orthopnea, no wheezing Cardiovascular: no chest pain, no palpitations, no edema Musculoskeletal: no back pain, no trauma Neurologic: no headache, no dizziness, no numbness, no weakness Psychiatric: no sleeping problems, no irritability, no mood swings/depression. Additional ROS info: Except as noted in the above Review of Systems and in the History of Present Illness all other systems have been reviewed and are negative or noncontributory. Physical Exam Vitals & Measurements T: 37.0 ???C(Temporal Artery) HR: 70(Peripheral) RR: 20 BP: 134/84 SpO2: 97% HT: 66 in HT: 167.5 cm WT: 84.4 kg WT: 185.68 lb BMI: 30.08 General: alert, no acute distress ENMT: TM's clear, oral mucosa moist, no pharyngeal erythema or exudate Cardiovascular: regular rate and rhythm, normal peripheral perfusion Respiratory: Lungs CTA, respirations non labored Extremities: no deformity, no trauma Neurological: oriented x 4, LOC appropriate for age, CN II-XII intact, motor strength equal & normal bilaterally, sensation equal & normal bilaterally, speech normal Assessment/Plan 1. Allergic rhinitis, seasonal (J30.2: Other seasonal allergic rhinitis) Discussed viral vs bacterial infections Encouraged OTC antihistamine - Patient given samples of Zyrtec f/u with pcp if no improvement 2. Non-smoker (Z78.9: Other specified health status) Encouraged to continue with a non-smoker Ordered: Rapid COVID POC 61555 3. BMI 30.0-30.9,adult (Z68.30: Body mass index [BMI] 30.0-30.9, adult) The standard range for ages 18 and older is >=18.5 and < 25 kg/m2. Your BMI today was above this range, this falls in the overweight to obese category and there are medical benefits to weight loss. We can offer counselling, referral, and/or medical support in addressing this problem. Your BMI and weight management will be followed at subsequent visits. Ordered: Rapid COVID POC 96046 4. Exogenous obesity (E66.09: Other obesity due to excess calories) The standard range for ages 18 and older is >=18.5 and < 25 kg/m2. Your BMI today was above this range, this falls in the overweight to obese category and there are medical benefits to weight loss. We can offer counselling, referral, and/or medical support in addressing this problem. Your BMI and weight management will be followed at subsequent visits. Ordered: Rapid COVID POC 63516 Follow-up No qualifying data available Patient Education Allergic Rhinitis, Adult, Tepj-qa-Liwr Problem List/Past Medical History Ongoing Allergic rhinitis, [...] Tab, See Instructions hydrochlorothiazide 12.5 mg Cap, See Instructions Klor (more content not included)... Normal [facility] Comment on above: Result Comment: Elec tronically Signed By: MONICA RODRÍGUEZ CNP\.tato\Date and Time Signed: 02/15/24 13:18 EDT Ambulatory Visit Summaryon 0 12-24-2023 Ambulatory Visit Summary Ambulatory Visit Summary MOHANNORI Paola :1940 Visit Date:12/24/2023 Ambulatory Visit Instructions Your [...] 10:00 AM EST With: Sabina Ruth Where: [address] [id number]- 2024 11:00 AM EDT With: Where: [address] [address]- Medications What How Much When Why Instructions [...] for choosing us for your care. Normal [facility] Family Medicine Office/Clini c Noteon 12-24-2023 [...] mRNA (toz (more content not included)... Normal [facility] Comment on above: Result Comment: Elec tronically Signed By: Sabina Ruth\.br\Date and Time Signed: 12/24/23 10:45 EDT Ambulatory Visit Summaryon 0 12-03-2023 Ambulatory Visit Summary Ambulatory Visit Summary NORI PRESTON :1940 Visit Date:12/02/2023 Ambulatory Visit Instructions Your Diagnosis Medicare annual wellness visit, subsequent HTN (hypertension) Asthma Migraines Osteoporosis Screening mammogram for breast cancer Obesity due to excess calories Your Care Team Attending Physician - Sabina Ruth Primary Care Physician - Sabina Ruht This Is Your Medications List APAP/butalbital/caff eine [...] 9:00 AM EDT With: Sabina Ruth Where: [address] [address]- 2023 10:00 AM EST With: Sabina Ruth Where: [address] [address]- 2024 11:00 AM EDT With: Where: [address] [address]- Medications What How Much When Why Instructions [...] BMI calculated? (more content not included)... Normal [facility] Ambulatory Visit Summary Ambulatory Visit Summary [...] 10:00 AM EDT With: Sabina Ruth Where: [address] [address]- 2023 10:00 AM EST With: Sabina Ruth Where: [address] [address]- 2024 11:00 AM EDT With: Where: [address] [id number]- Medications What How Much When Why Instructions [...] for choosing us for your care. Normal [facility] Family Medicine Office/Clini c Noteon 12-03-2023 [...] of clutter to prevent tripping and/or falling. [place] Advance Directives reviewed. Documents are scanned into [...] PCP visit. Labs to be completed with [facility]. No concerns with bowel/ bladder. Colonoscopy last [...] of jovanni (more content not included)... Normal [facility] Comment on above: Result Comment: Elec [...] referral to go to Dr. Rajput in [place], this is who her sees. patient originally thought she just pulled a muscle in her chest when pulling weeds. but with her having SOB and fatigue I feel she needs further work up by cardiology. Ordered: ECG 12 Lead Adult [facility] External Ambulatory Referral 2. Shortness of breath (R06.02: Shortness of breath) pt gets very short of breath on any exertion Ordered: ECG 12 Lead Adult [facility] [place] Ambulatory Referral 3. Fatigue (R53.83: Other fatigue) EKG, carotid artery u/s and chest x ray ordered Ordered: [facility] External Ambulatory Referral 4. Non-smoker (Z78.9: Other [...] outpatient record 1111F ECG 12 Lead Adult [facility] External Ambulatory Referral Medication list documented in medical record 1159F Patient screen for fall risk: no falls in last year or 1 fall with no injury in last year 1101F Review of all meds by a prescribing practitioner or clinical pharmacist documented in EHR 1160F 5. BMI 29.0-29.9,adult (Z68.29: Body mass index [BMI] 29.0-29.9, adult) BMI education given Ordered: ECG 12 Lead Adult [facility] [place] Ambulatory Referral 6. Overweight (BMI 25.0-29.9) (E66.3: Overweight) see above Ordered: ECG 12 Lead Adult 7. Right hip pain (M25.551: Pain in right hip) pt had injection in right hip a few years ago and was pain free until a couple weeks ago. she is going to see senior applications architect first. if hip continues to be a problem we will order x ray and pain management for injection Orders: potassium chloride, 20 mEq = 1 tab(s), Oral, Daily, # 90 tab(s), Refills(s) 1, Pharmacy: [facility]/pharmacy #[id number], 166, cm, 08/24/23 8:56:00 EDT, Height/Length [...] Migraines O (more content not included)... Normal [facility] Comment on above: Result Comment: Elec [...] Multivitamin oral capsule) omega-3 polyunsaturated fatty acids (Jammin Java's Bounty Red Krill Oil) potassium chloride (Klor-Con [...] Appointments 2023 1:00 PM EDT With: Where: [facility] [place] Normal [address] [place] [address]- \.br\ Medications\.br\ What How Much When Why [...] Every day\.br\ Unchanged omega-3 polyunsaturated fatty acids (Jammin Java's Bounty Red Krill Oil) 500 Milligram By [...] for choosing us for your care.\.br\ \.br\ [facility] BMPon 08-24-2023 Anion gap [Moles/Vol] 10 mmol/L Normal 6-16 [facility] Comment on above: Performed By: #### 2 473854, 7181513, [id number], [id number] ####[facility] [address] [place] [address] Calcium [Mass/Vol] 9.4 mg/dL Normal 8.9-11.1 [facility] Comment on above: Performed By: #### 2 413351, 3164581, [id number], [id number] ####[facility] [address] [place] [address] Chloride [Moles/Vol] 104 mmol/L Normal 101-111 [facility] Comment on above: Performed By: #### 2 590897, 0219102, [id number], [id number] ####[facility] [address] [place] [address] CO2 [Moles/Vol] 30 mmol/L Normal 21-31 [facility] Comment on above: Performed By: #### 2 094290, 5202779, [id number], [id number] ####[facility] [address] [place] [address] Creatinine [Mass/Vol] 0.7 mg/dL Normal 0.5-1.3 [facility] Comment on above: Performed By: #### 2 381465, 9494712, 96387782, [id number] ####[facility] [address] [place] [address] Glucose [Mass/Vol] 79 mg/dL Normal 55-199 [facility] Comment on above: Performed By: #### 2 980467, 9612027, 25569393, [id number] ####[facility] [address] [place] [address] Potassium [Moles/Vol] 4.3 mmol/L Normal 3.5-5.3 [facility] Comment on above: Performed By: #### 2 855407, 0214089, 97386130, [id number] ####[facility] [address] [place] [address] Sodium [Moles/Vol] 140 mmol/L Normal 135-145 [facility] Comment on above: Performed By: #### 2 088203, 2748121, 40345956, [id number] ####[facility] [address] [place] [address] Urea nitrogen [Mass/Vol] 19 mg/dL Normal 5-21 [facility] Comment on above: Performed By: #### 2 627696, 3135442, 65775474, [id number] ####[facility] [address] [place] [address] Urea nitrogen/Creatinine [Mass ratio] 27 No Units High 10-20 [facility] Comment on above: Performed By: #### 2 491121, 9700520, [id number], [id number] ####[facility] [address] [place] [address] CHEMISTRYOrdered By: SYSTEM SYSTEM on 08-24-2023 25-hydroxyvitamin [...] Metabolic Panel Iron Level Lab Specimen Collect 67005 Vitamin D 25 Hydroxy 3. Leg cramps (R25.2: Cramp and spasm) pt c/o leg cramps and feeling week will check electrolytes today Ordered: Basic Metabolic Panel Iron Level Lab Specimen Collect 00440 Vitamin D 25 Hydroxy 4. Non-smoker (Z78.9: Other specified health status) continue not smoking Ordered: Basic Metabolic Panel Iron Level Lab Specimen Collect 04810 Vitamin D 25 Hydroxy 5. BMI 30.0-30.9,adult (Z68.30: Body mass index [BMI] 30.0-30.9, adult) BMI education complete Ordered: Basic Metabolic Panel Iron Level Lab Specimen Collect 27842 Vitamin D 25 Hydroxy Orders: amoxicillin, See Instructions, TAKE 4 CAPSULES BY MOUTH 1/2 HOUR BEFORE PROCEDURE AND 2 CAPSULES 4 HOURS AFTER PROCEDURE, # 6 cap(s), Refills(s) 1, Pharmacy: [id number], 166, cm, 03/16/23 9:10:00 EST, Height/Length Dosing, 85.6, kg, 03/16/23 9:10:00 EST, W... amoxicillin, See Instructions, TAKE 4 CAPSULES BY MOUTH 1/2 HOUR BEFORE PROCESURE AND 2 CAPSULES 4 HOURS AFTER, # 6 caplet(s), Refills(s) 1, Pharmacy: [facility]/pharmacy #[id number], 166, cm, 08/24/23 8:56:00 EDT, Height/Length Dosing, 84, kg, 08/24/23 8:56:00 EDT, Weight Dosing potassium chloride, 20 mEq = 1 tab(s), Oral, Daily, # 90 tab(s), Refills(s) 1, Pharmacy: [facility]/pharmacy #[id number], 166, cm, 08/24/23 8:56:00 EDT, Height/Length [...] Cardiac arres (more content not included)... Normal [facility] Comment on above: Result Comment: Elec tronically Signed By: Sabina Ruth\.br\Date and Time Signed: 08/24/23 13:06 EDT Ironon 08-24-2023 Iron [Mass/Vol] 63 microgram/dL Normal 35-153 Fish er [facility] Comment on above: Performed By: #### 2 589486, 5343457, [id number], [id number] ####[facility] [address] [place] [address] Patient Logson 08-24-2023 Patient Logs [id number] #1.00TIFF Normal [facility] Vitamin D 25 Hydroxyon 08-23 25-hydroxyvitamin D3 [Mass/Vol] 53.7 ng/mL Normal 30.0-100.0 [facility] Comment on above: Performed By: #### 2 893254, 5691740, [id number], [id number] ####[facility] [address] [place] [address] eGFRon 08-24-2023 eGFR 87 mL/min/1.73 m2 Normal >=59 [facility] Comment on above: Order Comment: Order added by Discern Expert. Performed By: #### 2 745553, 3576698, [id number], [id number] ####[facility] [address] [place] [address] Nurse Consultation Noteon Nurse Consultation Note Reason [...] 03/16/2023 Recorded covid 19 vishal-sucrose SARS-CoV-2 (COVID-19) mRNAMUL.ORD![id number] 02/23/2022 Recorded influenza virus vaccine, inactivated 02/10/2022 [...] inactivated 03/06/2010 Recorded influenza, whole 02/05/2009 Recorded [facility] Immunization Recordson 03-18 Immunization Records [id number] #1.00TIFF [facility] Ambulatory Visit Summaryon 1 05-16-2022 Ambulatory Visit [...] Appointments Wednesday 9:00 AM EST With: Where: [facility] Invalid Interpretation Code [address] [place] [address]- \.br\ Wednesday 2:00 PM EDT \.br\ With:\.br\ Where: [facility] Family Medicine Office/Clini c Noteon 03-16-2023 [...] PROCEDURE, # 6 cap(s), Refills(s) 1, Pharmacy: [facility]/pharmacy #[id number], 166, cm, 03/16/23 9:10:00 EST, Height/Length Dosing, 85.6, kg, 03/16/23 9:10:00 EST, W... APAP/butalbital/caff eine, 1 tab(s), Oral, q4hr Headache, 30 tab(s), Refill(s) 0, [facility][id number], 166, cm, 03/16/23 9:10:00 EST, Height/Length [...] Immunizations Vaccine Date Status Comments SARS-CoV-2 (COVID-19) mRNAMUL.ORD![id number] 02/23/2022 Recorded influenza virus vaccine, inactivated 02/10/2022 Recorded SARSCoV2 mRNA(tozinamer-vishal- sucros) vac 11/12/2021 Recorded influenza virus vaccine, inactivated - Not Given Patient Refuses SARS-CoV-2 (COVID-19) mRNA BNT-162b2 vax 01/23/2021 Recorded 2022-11-25: [id number] (more content not included)... Normal [facility] Comment on above: Result Comment: Elec tronically Signed By: Sabina Ruth\.br\Date and Time Signed: 03/16/23 10:17 EST Patient Logson 03-16-2023 Patient Logs [id number] #1.00TIFF Normal [facility] Patient Logson 03-09-2023 Patient Logs [id number] #1.00TIFF Normal [facility] CHEMISTRYOrdered By: SYSTEM SYSTEM on 02-02-2023 Albumin [...] 178 mg/dL Normal 120 - 200 mg/dL [facility] Cholesterol in HDL [Mass/Vol] 59 mg/dL Invalid Interpretation Code [facility] Comment on above: Interpretive Data: H DL > or equal to 60 mg/dL: Low cardiovascular risk HDL < 40 mg/dL : High cardiovascular risk Cholesterol in LDL [Mass/Vol] 107 mg/dL Normal <=129mg/dL [facility] Remisol Cholesterol in VLDL [Mass/Vol] 9 mg/dL Normal 7 - 40 mg/dL [facility] CO2 [Moles/Vol] 29 mmol/L Normal 21 - 31 mmol/L [facility] Creatinine [Mass/Vol] 0.8 mg/dL Normal 0.5 - 1.3 mg/dL [facility] GFR/1.73 sq M.predicted among non-blacks MDRD (S/P/Bld) [Vol rate/Area] 74 mL/min/1.73 m2 Normal >=59mL/min/1.73 m2 [facility] Chem S Comment on above: Interpretive Data: [...] ratio] 21 mg/mg High 10 - 20 [facility] Remisol HEMATOLOGYOrdered By: SYSTEM SYSTEM on 02-02-2023 Basophils/100 [...] 33.8 g/dL Normal 31.4 - 36.0 gm/dL [facility] HemeAutoSS MCV (RBC) [Entitic vol] 88.3 fL Normal 80.0 - 100.0 fL [facility] HemeAutoSS Platelet mean volume (Bld) [Entitic vol] 9.0 fL Normal 6.4 - 10.8 fL [facility] HemeAutoSS Platelets (Bld) [#/Vol] 232.0 E9/L Normal 150.0 - 500.0 E9/L [facility] HemeAutoSS RBC (Bld) [#/Vol] 4.4 E12/L Normal 4.3 - 5.9 E12/L [facility] HemeAutoSS WBC corrected for nucl RBC Auto (Bld) [#/Vol] 6.2 E9/L Normal 4.0 - 11.0 E9/L [facility] HemeAutoSS Orthopedic Office/Clinic Not otilio 05-06-2022 Orthopedic Office/Clinic [...] Zheng Bojorquez MD 05/06/22 10:34 EST Normal [facility] XR Knee 1 or 2 Views Bilater [...] Electronically Signed in Other Vendor System) Normal [facility] MG MAMM SCREEN 3D JAMES CADon 12-19-2021 MG MAMM SCREEN 3D JAMES CAD Patient: NORI PRESTON Exam Date: 12/19/2021 : 1940 Gender:F Ordering : DR MAGO FREEDMAN . Admission #: [id number] Family : Order #: [id number] CLICK HERE TO VIEW EXAM RADIOLOGY REPORT [...] colon cancer at age 69. LOCATION: [facility] BREAST COMPOSITION: Extremely dense, which lowers [...] MD on 12/19/2021 at 13:46 Normal [facility] CBC AUTO DIFFon 12-12-2021 BASO # 0.0 103/ul Normal 0.0-0.1 [facility] Comment on above: Performed By: #### C BC #### [facility] [address] [place] [address] Dr. Kaiser García Basophils/100 WBC (Bld) 0.3 % Normal 0.2-2.0 [facility] Comment on above: Performed By: #### C BC #### [facility] [address] [place] [address] Dr. Kaiser García EO # 0.1 103/ul Normal 0.0-0.7 [facility] Comment on above: Performed By: #### C BC #### [facility] [address] [place] [address] Dr. Kaiser García Eosinophils/100 WBC (Bld) 1.9 % Normal 0.9-7.0 [facility] Comment on above: Performed By: #### C BC #### [facility] [address] [place] [address] Dr. Kaiser García Erythrocyte distribution width (RBC) [Ratio] 13.9 % Normal 11.0-15.0 [facility] Comment on above: Performed By: #### C BC #### [facility] [address] [place] [address] Dr. Kaiser García Hematocrit (Bld) [Volume fraction] 38.5 % Normal 36.0-48.0 [facility] Comment on above: Performed By: #### C BC #### [facility] [address] [place] [address] Dr. Kaiser García Hemoglobin (Bld) [Mass/Vol] 12.0 g/dL Normal 12.0-16.0 [facility] Comment on above: Performed By: #### C BC #### [facility] [address] [place] [address] Dr. Kaiser García IG # 0.03 10e3/ul Normal 0.00-0.03 [facility] [facility] Comment on above: Performed By: #### C BC #### [facility] [address] [place] [address] Dr. Kaiser García IG % 0.4 % Normal 0.0-0.5 [facility] Comment on above: Performed By: #### C BC #### [facility] [address] [place] [address] Dr. Kaiser García LYMPH # 2.5 103/ul Normal 1.2-3.8 [facility] Comment on above: Performed By: #### C BC #### [facility] [address] [place] [address] Dr. Kaiser García Lymphocytes/100 WBC (Bld) 35.7 % Normal 20.5-60.0 [facility] Comment on above: Performed By: #### C BC #### [facility] [address] [place] [address] Dr. Kaiser García MANUAL DIFF REQ NO Normal [facility] Comment on above: Performed By: #### C BC #### [facility] [address] [place] [address] Dr. Kaiser García MCH (RBC) [Entitic mass] 28.5 pg Normal 26.7-34.0 [facility] Comment on above: Performed By: #### C BC #### [facility] [address] [place] [address] Dr. Kaiser García MCHC (RBC) [Mass/Vol] 31.2 g/dL Normal 29.9-35.2 [facility] Comment on above: Performed By: #### C BC #### [facility] [address] [address] [address] Kaiser García MCV (RBC) [Entitic vol] 91.4 fL Normal 81.0-99.0 [facility] Comment on above: Performed By: #### C BC #### [facility] [address] [address] [address] Kaiser García MONO # 0.6 103/ul Normal 0.3-0.8 [facility] Comment on above: Performed By: #### C BC #### [facility] [address] [address] [address] Kaiser García Monocytes/100 WBC (Bld) 8.7 % Normal 1.7-12.0 [facility] Comment on above: Performed By: #### C BC #### [facility] [address] [place] [address] Dr. Kaiser García NEUT # 3.7 103/ul Normal 1.4-6.5 [facility] Comment on above: Performed By: #### C BC #### [facility] [address] [place] [address] Dr. Kaiser García Neutrophils/100 WBC (Bld) 53.0 % Normal 43.0-75.0 [facility] Comment on above: Performed By: #### C BC #### [facility] [address] [address] [address] Kaiser García Platelet mean volume (Bld) [Entitic vol] 9.4 fL Critically low 9.5-13.5 [facility] Comment on above: Performed By: #### C BC #### [facility] [address] [address] [address] Kaiser García PLT 244 103/ul Normal 150-450 [facility] Comment on above: Performed By: #### C BC #### [facility] [address] [address] [address] Kaiser García RBC 4.21 106/ul Normal 4.20-5.40 [facility] Comment on above: Performed By: #### C BC #### [facility] [address] [address] [address] Kaiser García WBC 6.9 103/ul Normal 4.0-11.0 [facility] Comment on above: Performed By: #### C BC #### [facility] [address] [address] [address] Kaiser García PROF 14(COMP METB)on 022 Albumin [Mass/Vol] 3.6 g/dL Normal 3.4-5.0 [facility] Comment on above: Performed By: #### C MP, TSH ####[facility] [address] [address]Dr. Kaiser García Albumin/Globulin [Mass ratio] 1.1 {ratio} Normal [facility] Comment on above: Performed By: #### C MP, TSH ####[facility] [address] [address]Dr. Kaiser García ALP [Catalytic activity/Vol] 51 U/L Normal 46-116 [facility] Comment on above: Performed By: #### C MP, TSH ####[facility] [address] [address]Dr. Kaiser García ALT [Catalytic activity/Vol] 19 U/L Normal 14-59 [facility] Comment on above: Performed By: #### C MP, TSH ####[facility] [address] [address]Dr. Kaiser García Anion gap [Moles/Vol] 11.6 mmol/L Normal [facility] Comment on above: Performed By: #### C MP, TSH ####[facility] [address] [address]Dr. Kaiser García AST [Catalytic activity/Vol] 14 U/L Critically low 15-37 [facility] Comment on above: Performed By: #### C MP, TSH ####[facility] [address] [address]Dr. Kaiser García Bilirubin [Mass/Vol] 0.3 mg/dL Normal 0.2-1.0 [facility] Comment on above: Performed By: #### C MP, TSH ####[facility] [address] [address]Dr. Kaiser García Calcium [Mass/Vol] 9.0 mg/dL Normal 8.5-10.1 [facility] Comment on above: Performed By: #### C MP, TSH ####[facility] [address] [address]Dr. Kaiser García Chloride [Moles/Vol] 104 mmol/L Normal 98-107 [facility] Comment on above: Performed By: #### C MP, TSH ####[facility] [address] [address]Dr. Kaiser García CO2 [Moles/Vol] 28.4 mmol/L Normal 21.0-32.0 [facility] Comment on above: Performed By: #### C MP, TSH ####[facility] [address] [place], [place] [address]Dr. Kaiser García Creatinine [Mass/Vol] 0.73 mg/dL Normal 0.55-1.02 [facility] Comment on above: Performed By: #### C MP, TSH ####[facility] [address] [place], [place] [address]Dr. Kaiser García EGFR-AF SPANISH >60 Normal >=60 [facility] Comment on above: Performed By: #### C MP, TSH ####[facility] [address] [address]Dr. Kaiser García EGFR-NON AF SPANISH >60 Normal >=60 [facility] Comment on above: Performed By: #### C MP, TSH ####[facility] [address] [address]Dr. Kaiser García Globulin (S) [Mass/Vol] 3.4 g/dL Normal [facility] Comment on above: Performed By: #### C MP, TSH ####[facility] [address] [address]Dr. Kaiser García Glucose [Mass/Vol] 73 mg/dL Critically low 74-106 [facility] Comment on above: Performed By: #### C MP, TSH ####[facility] [address] [address]Dr. Kaiser García Potassium [Moles/Vol] 4.0 mmol/L Normal 3.5-5.1 [facility] Comment on above: Performed By: #### C MP, TSH ####[facility] [address] [address]Dr. Kaiser García Protein [Mass/Vol] 7.0 g/dL Normal 6.4-8.2 [facility] Comment on above: Performed By: #### C MP, TSH ####[facility] [address] [address]Dr. Kaiser García Sodium [Moles/Vol] 140 mmol/L Normal 136-145 [facility] Comment on above: Performed By: #### C MP, TSH ####[facility] [address] [address]Dr. Kaiser García Urea nitrogen [Mass/Vol] 23.0 mg/dL Critically high 7.0-18.0 [facility] Comment on above: Performed By: #### C MP, TSH ####[facility] [address] [address]Dr. Kaiser García Urea nitrogen/Creatinine [Mass ratio] 31.5 mg/mg Normal [facility] Comment on above: Performed By: #### C MP, TSH ####[facility] [address] [address]Dr. Kaiser García TSHon 12-12-2021 TSH 1.112 uIU/mL Normal 0.358-3.740 [facility] Comment on above: Performed By: #### C MP, TSH ####[facility] [address] [place], [place] [address]Dr. Kaiser García XR CHEST 1 Von 12-04-2021 [...] Mesfin LIZ Date: 2021-12-03 23:19 Normal [facility] CBC AUTO DIFFon 12-03-2021 BASO # 0.0 103/ul Normal 0.0-0.1 [facility] Comment on above: Performed By: #### C BC #### [facility] [address] [address] [address] Kaiser García Basophils/100 WBC (Bld) 0.3 % Normal 0.2-2.0 [facility] Comment on above: Performed By: #### C BC #### [facility] [address] [address] [address] Kaiser García EO # 0.1 103/ul Normal 0.0-0.7 [facility] Comment on above: Performed By: #### C BC #### [facility] [address] [address] [address] Kaiser García Eosinophils/100 WBC (Bld) 1.0 % Normal 0.9-7.0 [facility] Comment on above: Performed By: #### C BC #### [facility] [address] [address] [address] Kaiser García Erythrocyte distribution width (RBC) [Ratio] 13.8 % Normal 11.0-15.0 [facility] Comment on above: Performed By: #### C BC #### [facility] [address] [place] [address] Dr. Kaiser García Hematocrit (Bld) [Volume fraction] 38.5 % Normal 36.0-48.0 [facility] Comment on above: Performed By: #### C BC #### [facility] [address] [place] [address] Dr. Kaiser García Hemoglobin (Bld) [Mass/Vol] 12.4 g/dL Normal 12.0-16.0 [facility] Comment on above: Performed By: #### C BC #### [facility] [address] [place] [address] Dr. Kaiser García IG # 0.01 10e3/ul Normal 0.00-0.03 [facility] Comment on above: Performed By: #### C BC #### [facility] [address] [place] [address] Dr. Kaiser García IG % 0.2 % Normal 0.0-0.5 [facility] Comment on above: Performed By: #### C BC #### [facility] [address] [place] [address] Dr. Kaiser García LYMPH # 2.0 103/ul Normal 1.2-3.8 [facility] Comment on above: Performed By: #### C BC #### [facility] [address] [place] [address] Dr. Kaiser García Lymphocytes/100 WBC (Bld) 32.4 % Normal 20.5-60.0 [facility] Comment on above: Performed By: #### C BC #### [facility] [address] [place] [address] Dr. Kaiser García MANUAL DIFF REQ NO Normal [facility] Comment on above: Performed By: #### C BC #### [facility] [address] [place] [address] Dr. Kaiser García MCH (RBC) [Entitic mass] 28.8 pg Normal 26.7-34.0 [facility] Comment on above: Performed By: #### C BC #### [facility] [address] [place] [address] Dr. Kaiser García MCHC (RBC) [Mass/Vol] 32.2 g/dL Normal 29.9-35.2 [facility] Comment on above: Performed By: #### C BC #### [facility] [address] [place] [address] Dr. Kaiser García MCV (RBC) [Entitic vol] 89.3 fL Normal 81.0-99.0 [facility] Comment on above: Performed By: #### C BC #### [facility] [address] [place] [address] Dr. Kaiser García MONO # 0.3 103/ul Normal 0.3-0.8 [facility] Comment on above: Performed By: #### C BC #### [facility] [address] [place] [address] Dr. Kaiser García Monocytes/100 WBC (Bld) 4.2 % Normal 1.7-12.0 [facility] Comment on above: Performed By: #### C BC #### [facility] [address] [place] [address] Dr. Kaiser García NEUT # 3.9 103/ul Normal 1.4-6.5 [facility] Comment on above: Performed By: #### C BC #### [facility] [address] [place] [address] Dr. Kaiser García Neutrophils/100 WBC (Bld) 61.9 % Normal 43.0-75.0 [facility] Comment on above: Performed By: #### C BC #### [facility] [address] [place] [address] Dr. Kaiesr García Platelet mean volume (Bld) [Entitic vol] 10.1 fL Normal 9.5-13.5 [facility] Comment on above: Performed By: #### C BC #### [facility] [address] [place] [address] Dr. Kaiser García PLT 175 103/ul Normal 150-450 [facility] Comment on above: Performed By: #### C BC #### [facility] [address] [place] [address] Dr. Kaiser García RBC 4.31 106/ul Normal 4.20-5.40 [facility] Comment on above: Performed By: #### C BC #### [facility] [address] [place] [address] Dr. Kaiser García WBC 6.2 103/ul Normal 4.0-11.0 [facility] Comment on above: Performed By: #### C BC #### [facility] [address] [place] [address] Dr. Kaiser García PROF 14(COMP METB)on 08-17-2 022 Albumin [Mass/Vol] 3.6 g/dL Normal 3.4-5.0 [facility] Comment on above: Performed By: #### H JAMIRPN, CMP #### [facility] [address] [address] [address] Kaiser García Albumin/Globulin [Mass ratio] 1.0 {ratio} Normal [facility] Comment on above: Performed By: #### H STROPN, CMP #### [facility] [address] [address] [address] Kaiser García ALP [Catalytic activity/Vol] 54 U/L Normal 46-116 [facility] Comment on above: Performed By: #### H JAMIRPN, CMP #### [facility] [address] [place] [address] Dr. Kaiser García ALT [Catalytic activity/Vol] 17 U/L Normal 14-59 [facility] Comment on above: Performed By: #### H JAMIRPN, CMP #### [facility] [address] [place] [address] Dr. Kaiser García Anion gap [Moles/Vol] 15.4 mmol/L Normal [facility] Comment on above: Performed By: #### H JAMIRPN, CMP #### [facility] [address] [place] [address] Dr. Kaiser García AST [Catalytic activity/Vol] 21 U/L Normal 15-37 [facility] Comment on above: Performed By: #### H JAMIRPN, CMP #### [facility] [address] [address] [address] Kaiser García Bilirubin [Mass/Vol] 0.4 mg/dL Normal 0.2-1.0 [facility] Comment on above: Performed By: #### H STROPN, CMP #### [facility] [address] [place] [address] Dr. Kaiser García Calcium [Mass/Vol] 9.1 mg/dL Normal 8.5-10.1 [facility] Comment on above: Performed By: #### H STROPN, CMP #### [facility] [address] [place] [address] Dr. Kaiser García Chloride [Moles/Vol] 101 mmol/L Normal 98-107 [facility] Comment on above: Performed By: #### H STROPN, CMP #### [facility] [address] [place] [address] Dr. Kaiser García CO2 [Moles/Vol] 22.4 mmol/L Normal 21.0-32.0 [facility] Comment on above: Performed By: #### H STROPN, CMP #### [facility] [address] [place] [address] Dr. Kaiser García Creatinine [Mass/Vol] 1.19 mg/dL Critically high 0.55-1.02 [facility] Comment on above: Performed By: #### H STROPN, CMP #### [facility] [address] [place] [address] Dr. Kaiser García EGFR-AF SPANISH 53 mL/min/1.73m2 Critically low >=60 [facility] Comment on above: Performed By: #### H STROPN, CMP #### [facility] [address] [place] [address] Dr. Kaiser García EGFR-NON AF SPANISH 44 mL/min/1.73m2 Critically low >=60 [facility] Comment on above: Performed By: #### H STROPN, CMP #### [facility] [address] [place] [address] Dr. Kaiser García Globulin (S) [Mass/Vol] 3.5 g/dL Normal [facility] Comment on above: Performed By: #### H STROPN, CMP #### [facility] [address] [place] [address] Dr. Kaiser García Glucose [Mass/Vol] 220 mg/dL Critically high 74-106 [facility] Comment on above: Performed By: #### H STROPN, CMP #### [facility] [address] [place] [address] Dr. Kaiser García Potassium [Moles/Vol] 3.8 mmol/L Normal 3.5-5.1 [facility] Comment on above: Performed By: #### H STROPN, CMP #### [facility] [address] [address] [address] Kaiser García Protein [Mass/Vol] 7.1 g/dL Normal 6.4-8.2 [facility] Comment on above: Performed By: #### H DEEPALI, CMP #### [facility] [address] [address] [address] Kaiser García Sodium [Moles/Vol] 135 mmol/L Critically low 136-145 [facility] Comment on above: Performed By: #### H DEEPALI, CMP #### [facility] [address] [address] [address] Kaiser García Urea nitrogen [Mass/Vol] 22.0 mg/dL Critically high 7.0-18.0 [facility] Comment on above: Performed By: #### H DEEPALI, CMP #### [facility] [address] [address] [address] Kaiser García Urea nitrogen/Creatinine [Mass ratio] 18.5 mg/mg Normal [facility] Comment on above: Performed By: #### H DEEPALI, CMP #### [facility] [address] [address] [address] Kaiser García TROPONIN, HIGH SENSITIVITYon 12-03-2021 HSTROP 9.4 pg/mL Normal 4.0-51.3 [facility] Comment on above: Result Comment: CUT- OFF POINTS HAVE BEEN ESTABLISHED BASED ON THE FOURTH UNIVERSAL DEFINITIONS OF MYOCARDIAL INFARCTION. THE UPPER REFERENCE LIMIT (URL) OF TROPONIN, DEFINED THE 99TH PERCENTILE OF cTnI DISTRIBUTION IN A REFERENCE POPULATION, HAS BEEN CONFIRMED THE DECISION THRESHOLD FOR [place] DIAGNOSIS. Performed By: #### H DEEPALI, CMP #### [facility] [address] [place] [address] Dr. Kaiser García Covid-19 PCR (CVDTBH)on 11-17 SARS-CoV-2 (COVID-19) RNA DANIEL+probe Ql (Unsp spec) Not detected Normal NOT DETECTED [facility] Comment on above: Result Comment: This test is not yet approved or cleared by the [place] FDA. When there are no FDA-approved or cleared tests available, and other criteria are met, FDA can make tests available under an emergency access mechanism called an Emergency Use Authorization (EUA). The EUA for this test is supported by the [place] and Human Service's (HHS's) declaration [...] consistent with SARS-CoV-2. Performed By: #### C [facility] #### [facility] [address] [place] [address] Dr. Kaiser García US ISABELLA DOP LEG [...] by: BERNARD REZA Date: 2021-10-17 16:45 Normal [facility] Encounters Encounter Date Encounter Type Care Provider Facility Start: 05-08-2024 ambulatory Mago Freedman MD Fa cility[facility] Start: 02-15-2024 End: 02-15-2024 ambulatory MONICA RODRÍGUEZ Facility:[facility] Start: 12-24-2023 End: 12-24-2023 [facility] Start: 12-22-2023 End: 12-22-2023 ambulatory CAPO H HANDY Not Available Start: 12-03-2023 End: 12-03-2023 ambulatory Sabina L Linda Facility:[facility] Start: 12-02-2023 End: 12-02-2023 ambulatory Sabina L Linda Facility:[facility] Start: 10-18-2023 End: 10-18-2023 ambulatory CAPO H HANDY Not Available Start: 08-24-2023 End: 08-24-2023 Lab Drop off Sabina L Linda [facility] Start: 08-24-2023 End: 08-24-2023 ambulatory Sabina L [place] Start: 08-12-2023 End: 08-12-2023 ambulatory CAPO H HANDY Not Available Start: 06-08-2023 End: 06-08-2023 ambulatory CAPO H HANDY Not Available Start: 04-01-2023 End: 04-01-2023 ambulatory CAPO H HANDY Not Available Start: 03-23-2023 End: 03-23-2023 ambulatory Sabina L Linda Facility:[facility] Start: 03-16-2023 End: 03-16-2023 ambulatory Sabina L Linda Facility:[facility] Start: 02-02-2023 End: 02-02-2023 Lab Drop off Sabina L Linda [facility] Start: 06-05-2022 End: 06-18-[address] MAGO FREEDMAN . Facility:[facility] Start: 05-06-2022 End: 05-07-2022 ambulatory Mago Freedman MD Facility:[facility] Start: [...] Activity Detail Author Start: 12-07-2024 ambulatory Ambulatory Facility:[facility] Start: 02-24-2024 ambulatory Ambulatory Facility:[facility] Immunizations Immunization Date Immunization Notes Care Provider Fa nixon 03-16-2023 SARS-CoV-2 mRNA (tozinameran 5y-11y) vaccine Sabina Linda [facility] [place] Comment on above: Result Comment: covi d 19 vishal-sucrose 02-23-2022 SARS-CoV-2 (COVID-19 ) mRNAMUL.[id number] Sabina Linda [facility] 02-10-2022 influenza virus vaccine, unspecified formulation Sabina Linda [facility] 11-12-2021 SARS-CoV-2 mRNA (igdnkmugauz-giyl-xfedv se) vaccine Sabina Linda [facility] 01-23-2021 SARS-CoV-2 (COVID-19 ) mRNA BNT-162b2 vax Sabina Linda [facility] Comment on above: Result Comment: 2022: [id number] 06-12-2020 SARS-CoV-2 (COVID-19 ) mRNA BNT-162b2 vax Sabina Linda [facility] Comment on above: Result Comment: 2022: [id number] 05-22-2020 SARS-CoV-2 (COVID-19 ) mRNA BNT-162b2 vax Sabina Linda [facility] Comment on above: Result Comment: 2022: [id number] 01-26-2020 influenza virus vaccine, unspecified formulation Sabina Linda [facility] 04-19-2019 pneumococcal conjuga te vaccine, 13 valent Sabina Linda [facility] 02-23-2019 influenza virus vaccine, unspecified formulation Sabina Linda [facility] 05-25-2018 pneumococcal polysaccharide vaccine, 23 valent Sabina Linda [facility] 02-15-2018 influenza virus vaccine, unspecified formulation Sabina Linda [facility] 02-24-2017 influenza virus vaccine, unspecified formulation Sabina Linda [facility] 03-06-2016 pneumococcal conjuga te vaccine, 13 valent Sabina Linda [facility] 02-20-2016 influenza virus vaccine, unspecified formulation Sabina Linda [facility] 02-20-2014 influenza virus vaccine, unspecified formulation Sabina Linda [facility] 02-22-2013 influenza virus vaccine, unspecified formulation Sabina Linda [facility] 03-06-2010 influenza virus vaccine, unspecified formulation Sabina Linda [facility] 02-05-2009 influenza, whole Sabina Linda [facility] NEGATED: Highlighted row has not occurred!07-01-2021 influenza virus vaccine, unspecified formulation Sabina [facility] [place] Payers Date Payer Category Payer Medicare 2020 Unknown 1959 Medicare [id number] 1959 Unknown [id number] 1942 Unknown [id number] 2.16.84 0.1.455970.3.579.2.59 1942 Unknown [id number] 2.16.84 0.1.671629.3.579.2.593 1942 Unknown [id number] 2.16.84 0.1.560159.3.579.2.593 1942 Unknown [id number] 2.16.84 0.1.393935.3.579.2.593 1942 Unknown [id number] 2.16.84 0.1.628539.3.579.2.593 1942 Unknown [id number] 2.16.84 0.1.626063.3.579.2.593 1942 Unknown [id number] 2.16.84 0.1.597833.3.579.2.593 1942 Unknown [id number] 2.16.84 0.1.484895.3.579.2.593 1942 Unknown [id number] 2.16.84 0.1.209315.3.579.2.593 1942 Unknown [id number] 2.16.84 0.1.473368.3.579.2.593 1942 Unknown [id number] 2.16. 840.1.505794.3.579.2.196 1942 Unknown [id number] 2.16. 840.1.603222.3.579.2.196 1942 Unknown [id number] 2.16.84 0.1.358384.3.579.2.1259 1942 Unknown [id number] 2.16.84 0.1.385717.3.579.2.1259 1942 Unknown [id number] 2.16.84 0.1.453382.3.579.2.1259 1942 Unknown [id number] 2.16.84 0.1.296439.3.579.2.1259 1942 Unknown [id number] 2.16.840 .1.746981.3.579.2.1259 1942 Unknown [id number] 2.16.8 40.1.923895.3.579.2.727 1942 Unknown [id number] 2.16.8 40.1.249918.3.579.2.727 1942 Unknown [id number] 2.16.8 40.1.986071.3.579.2.727 1942 Unknown [id number] 2.16.8 40.1.819743.3.579.2.727 1942 Unknown [id number] 2.16.8 40.1.123621.3.579.2.727 1942 Unknown [id number] 2.16.8 40.1.389017.3.579.2.727 1942 Unknown [id number] 2.16.8 40.1.757648.3.579.2.727 1942 Unknown [id number] 2.16.8 40.1.445423.3.579.2.727 1942 Unknown [id number] 2.16.8 40.1.480396.3.579.2.727 1942 Unknown [id number] 2.16.8 40.1.647928.3.579.2.727 Social History Date Type Detail Facility Start: 02-02-2023 End: 08-24-2023 Tobacco smoking status Never smoked tobacco (finding) [facility] Tobacco smoking status Never [facility] Sex Assigned At Female [facility] Medical Equipment Procedure Code Equipment Code Equipment Origin al Text Equipment Identifier Dates CATARACT EXTRACT ION W/ INTRAOCULAR LENS Fredy Moseley DO 04/30/20 Non Biological Eye L [id number] [facility] Start: 04-30-2020 CATARACT EXTRACT ION W/ INTRAOCULAR LENS Fredy Moseley DO 05/14/20 Non Biological Eye R {[id number] [facility] Start: 05-14-2020 Clinical Note 02-15-2024 Note Date & Type Note Facility 02-15-2024 Note Patient Education Immunology Allergic Rhinitis, Adult Allergic rhinitis is a reaction to allergens. Allergens are things that can cause an allergic reaction. This condition affects the lining inside the nose (mucous membrane). There are two types of allergic rhinitis: ??? Seasonal. This type is also called hay fever. It happens only during some times of the year. ??? Perennial. This type can happen at any time of the year. This condition cannot be spread from person to person (is not contagious). It can be mild, bad, or very bad. It can develop at any age and may be outgrown. What are the causes? Pollen from grasses, trees, and weeds. Other causes can be: ??? Dust mites. ??? Smoke. ??? Mold. ??? Car fumes. ??? The pee (urine), spit, or dander of pets. Dander is skin cells from a pet. What increases the risk? You are more likely to develop this condition if: ??? You have allergies in your family. ??? You have problems like allergies in your family. You may have: ? Swelling of parts of your eyes and eyelids. ? Asthma. This affects how you breathe. ? Long-term redness and swelling on your skin. ? Food allergies. What are the signs or symptoms? The main symptom of this condition is a runny or stuffy nose (nasal congestion). Other symptoms may include: ??? Sneezing or coughing. ??? Itching and tearing of your eyes. ??? Mucus that drips down the back of your throat (postnasal drip). This may cause a sore throat. ??? Trouble sleeping. ??? Feeling tired. ??? Headache. How is this treated? There is no cure for this condition. You should avoid things that you are allergic to. Treatment can help to relieve symptoms. This may include: ??? Medicines that block allergy symptoms, such as anti-inflammatories or antihistamines. These may be given as a shot, nasal spray, or pill. ??? Avoiding things you are allergic to. ??? Medicines that give you some of what you are allergic to over time. This is called immunotherapy. It is done if other treatments do not help. You may get: ? Shots. ? Medicine under your tongue. ??? Stronger medicines, if other treatments do not help. Follow these instructions at home: Avoiding allergens Find out what things you are allergic to and avoid them. To do this, try these things: ??? If you get allergies any time of year: ? Replace carpet with wood, tile, or vinyl chris. Carpet can trap pet dander and dust. ? Do not smoke. Do not allow smoking in your home. ? Change your heating and air conditioning filters at least once a month. ??? If you get allergies only some times of the year: ? Keep windows closed when you can. ? Plan things to do outside when pollen counts are lowest. Check pollen counts before you plan things to do outside. ? When you come indoors, change your clothes and shower before you sit on furniture or bedding. ??? If you are allergic to a pet: ? Keep the pet out of your bedroom. ? Vacuum, sweep, and dust often. General instructions ??? Take vevy-xzm-xucchov and prescription medicines only as told by your doctor. ??? Drink enough fluid to keep your pee pale yellow. Where to find more information ??? [employer]: aaaai.org Contact a doctor if: ??? You have a fever. ??? You get a cough that does not go away. ??? You make high-pitched whistling sounds when you breathe, most often when you breathe out (wheeze). ??? Your symptoms slow you down. ??? Your symptoms stop you from doing your normal things each day. Get help right away if: ??? You are short of breath. This symptom may be an emergency. Get help right away. Call 911. ??? Do not wait to see if the symptom will go away. ??? Do not drive yourself to the hospital. This information is not intended to replace advice given to you by your health care provider. Make sure you discuss any questions you have with your health care provider. Document Revised: 12/14/2022 Document Reviewed: 12/14/2022 Research Journalist Patient Education ? 2023 [employer] [facility] Clinical Note 12-03-2023 Note Date & Type [...] wine (148 mL), (more content not included)... [facility] Clinical Note 09-24-2021 Note Date & [...] the pathology report. CC: Mago Freedman M.D. [facility] Signed and Approved by: DR LAMAR SEXTON . 09/25/2021 12:58:00 [facility] Clinical Note 08-20-2021 Note Date & [...] after different prep. CC: Mago Freedman M.D. [facility] Signed and Approved by: DR LAMAR SEXTON . 08/21/2021 07:27:00 [facility] Evaluation + Plan note Note Date & Type Note Facility Evaluation + Plan note Future Appointments Appointment Date:03/16/2023 09:00:00 AM Scheduled Provider:Sabina Ruth Location:[facility] Appointment Type:FM Open Appointment Date:12/03/2023 02:00:00 PM Scheduled Provider: Location:[facility] Appointment Type: Medicare Wellness Subsequent [facility] Evaluation + Plan note Note Date & Type Note Facility Evaluation + Plan note Future Appointments Appointment Date:11/25/2023 01:00:00 PM Scheduled Provider: Location:[facility] Appointment Type: Medicare Wellness Subsequent Appointment Date:02/24/2024 10:00:00 AM Scheduled Provider:Sabina Ruth Location:[facility] Appointment Type: Open [facility] Hospital course Narrative Note Date & Type Note Facility Hospital course Narrative No data available for this section [facility] Hospital Discharge instructions Note Date & Type Note Facility Hospital Discharge instructions No data available for this section [facility] Progress note Note Date & Type Note Facility Progress note No data available for this section [facility] Summary Purpose Family History No Family [...] section and content) DATE CREATED AUTHOR 07/25/2022 [facility] pital DATE CREATED AUTHOR AUTHOR'S ORGANIZ ATION 05/03/2023 [facility] DATE CREATED AUTHOR AUTHOR'S ORGANIZ ATION [facility]/23/2023 [facility] DATE CREATED AUTHOR AUTHOR'S ORGANIZ ATION 02/16/2024 [facility] Patient Care team informatio n (unrecognized section and content) Personnel Name: Sabina Ruth Address: Address: [address] [place] [address]- Personnel Name: Sabina Ruth Address: Address: [address] [place] [address]- FOR RECORDS PERTAINING TO PATIENTS WHO ARE [...] BE BASED ON THE PRIMARY CLINICAL RECORDS. [employer] [facility]. provides no warranty or guarantee of the accuracy or completeness of information in this document.
--- NOTE | 2024-02-24 10:53 | XR_ITS ---
The [address] [address] Patient Name: NIMCO PRESTON MRN: [id number] date: 1940 Sex: F Assigned Patient Location: RAD Current Patient Location: RAD Accession/Order Number: [id number] Exam Date: 02/24/2024 10:55 Report Date: 02/24/2024 11:20 At the request of: MARICHUY MICHEL Procedure: XR chest 2V PROCEDURE: XR chest 2V DATE: 02/24/2024 10:55 AM EST COMPARISONS: 12/07/2023 CLINICAL INDICATION: 83 years Female Cough, Shortness Of Breath FINDINGS: The heart is prominent and stable. There is a stable granuloma of the left lung field with the lungs otherwise clear. There is no evidence of pleural effusion or pneumothorax. XR/XR chest 2V IMPRESSION: Stable chest. No consolidating infiltrates to suggest pneumonia. Electronically authenticated by: TIAGO MARTE Date: 02/24/2024 11:20
== END 2024-02-24 10:47 | disposition home or self-care (01) ==
LOC: RAD 10:47
PROVIDERS: PCP Nurse Practitioner; Visit Provider Nurse Practitioner
DX: R05.9 Cough, unspecified (principal); R06.02 Shortness of breath
CPT/HCPCS: 71046

== ENCOUNTER 2024-03-13 08:28 | Outpatient (OUT) | payer MEDICARE, OTHER, SELFPAY ==
--- NOTE | 2024-03-13 | XR_ITS ---
[address] [address] Patient Name: NIMCO PRESTON MRN: [id number] date: 1940 Sex: F Assigned Patient Location: Current Patient Location: Accession/Order Number: [id number] Exam Date: 03/13/2024 08:32 Report Date: 03/15/2024 14:33 At the request of: RONEY CHOI Procedure: XR wrist LT min 3V PROCEDURE: XR wrist LT min 3V HISTORY: LEFT WRIST PAIN COMPARISON: XR wrist left 01/17/2024 FINDINGS: BONES:Slightly decreased sclerosis within distal radius compatible with ongoing bone healing. Smooth articular surface. Changes of the first carpal-metacarpal joints and the radial-carpal joints. SOFT TISSUES:Mild soft tissue swelling. EFFUSION:None visible. OTHER: Negative. XR/XR wrist LT min 3V IMPRESSION: 1. Normal alignment and ongoing bone healing of distal radius fracture. 2. Degenerative changes. Electronically authenticated by: RONEY JONES Date: 03/15/2024 14:33
--- OUTSIDE RECORDS SUMMARY | 2024-03-13 08:49 | XMS_ITS | CCD ---
Author Organization [facility] Care Team Providers Care Reading Professor Name Role Phone TANO ., DR MAGO [...] Isela Freedman MD, Mago Self Primary Care Unavaildillno Bojorquez MD, Zheng Thompson Attending Rosa Isela ACUÑA, CAPO H Attending Unavailable ROZINA, CAPO H Attending Unavailable ROZINA, CAPO H Attending Unavailable ROZINA, CAPO H Attending Unavailable ACUÑA, CAPO H Attending Unavailable ACUÑA, CAPO H Attending Unavailable Awais Guillory MD Primary Care Provider [phone] MONICA RODRÍGUEZ Attending Unavailable Linda, ELECTRICAL APPLIANCE MECHANIC Asbina L Attending Unavailable Linda, ELECTRICAL APPLIANCE MECHANIC Sabina L Attending Unavailable Linda, ELECTRICAL APPLIANCE MECHANIC Sabina L Attending Unavailable Linda, ELECTRICAL APPLIANCE MECHANIC Sabina L Attending Unavailable Linda, ELECTRICAL APPLIANCE MECHANIC Sabina L Attending Unavailable Linda, ELECTRICAL APPLIANCE MECHANIC Sabina L Attending Unavailable Linda, ELECTRICAL APPLIANCE MECHANIC Sabina L Attending Unavailable Linda, ELECTRICAL APPLIANCE MECHANIC Sabina L Attending Unavailable Linda, ELECTRICAL APPLIANCE MECHANIC Sabina L Attending Unavailable Linda, ELECTRICAL APPLIANCE MECHANIC Sabina L Admitting Unavailable Linda, ELECTRICAL APPLIANCE MECHANIC Sabina L Attending Unavailable Linda, ELECTRICAL APPLIANCE MECHANIC Sabina L Admitting Unavailable Linda, Sabina L Admitting Unavailable Linda, Sabina L Attending Unavailable Allergies Allergy Classification Reported Allergen(s) Allergy Type Date of Onset Reaction(s) Facility (2 sources) Amitriptyline; Translations: [amitriptyline] Drug Allergy [facility] (1 source) Cephalexin Drug Allergy 2 [facility] (3 sources) Amitriptyline; Translations: [amitriptyline] Drug Allergy Unknown (qualifier value) [facility] (4 sources) Cefuroxime; Translations: [cefuroxime] Drug Allergy Syncope and collapse (disorder), Itching (finding) [facility] (2 sources) No Known Medication Allergies; Translations: [No Known Medication Allergies] Propensity to adverse reactions to drug (disorder) [facility] Repository Medications Current Medications Medication Drug Class(es) Dates Sig (Normalized) Sig (Original) acetaminophen 300 mg / butalbital 50 mg oral tablet (2 sources) Barbiturate take 1 tablet by mouth every four to six hours as needed Butalbital-Acetam inophen 50-300 MG tablet 1 tablet as needed Orally every 4-6 hours as needed Active acetaminophen 325 mg / butalbital 50 mg / caffeine 40 mg oral tablet (2 sources) Barbiturate, Central Nervous System Stimulant, Methylxanthine Start: 03-16-2023 take 1 tablet by mouth every four hours APAP/butalbital/c affeine 325 mg-50 mg-40 mg Tab 1 tab(s), Oral, q4hr Headache, 30 tab(s), Refill(s) 0, [facility]/pharmacy #[id number], 166, cm, 03/16/23 9:10:00 EST, Height/Length Dosing, 85.6, kg, 03/16/23 9:10:00 EST, Weight Dosing Start Date: 03/16/23 Status: Ordered alendronic acid 70 mg oral tablet (5 sources) Bisphosphonate Start: 02-10-2024 alendronate 70 mg Tab See Instructions, TAKE 1 TABLET ONCE EVERY 7 DAYS, # 12 tab(s), Refills(s) 0, Pharmacy: [facility] STORE [id number], 167.5, cm, 12/24/23 10:08:00 EDT, Height/Length Dosing, 83.2, kg, 12/24/23 10:08:00 EDT, Weight Dosing Start Date: 02/10/24 Status: Ordered Start: 08-24-2023 alendronate 70 mg Tab 70 mg = 1 tab(s), Oral, q7day, # 12 tab(s), Refills(s) 0, Pharmacy: [facility]/pharmacy #[id number], 166, cm, 08/24/23 8:56:00 EDT, Height/Length Dosing, 84, kg, 08/24/23 8:56:00 EDT, Weight Dosing Start Date: 08/24/23 Status: Ordered Start: 04-29-2020 take 1 tablet by eric th every week alendronate (Fosamax) 70 MG tablet Take 70 mg by mouth 1 (one) time per week. 12/17/2022 Active amoxicillin 500 mg oral capsule (1 source) Penicillin-class Antibacterial Start: 08-24-2023 amoxicillin 500 mg Cap See Instructions, TAKE 4 CAPSULES BY MOUTH 1/2 HOUR BEFORE PROCESURE AND 2 CAPSULES 4 HOURS AFTER, # 6 caplet(s), Refills(s) 1, [id number] 166, cm, 08/24/23 8:56:00 EDT, Height/Length Dosing, 84, kg, 08/24/23 8:56:00 EDT, Weight Dosing Start Date: 08/24/23 Status: Ordered azithromycin 250 mg oral tablet (1 source) Macrolide Antimicrobial Start: 02-24-2024 End: 02-29-2024 azithromycin 250 mg Tab = 1 packet(s), Oral, As Directed, as directed on package labeling, X 5 day(s), # 6 tab(s), Refills(s) 0, [id number] 167.5, cm, 02/24/24 10:05:00 EST, Height/Length Dosing, 83.8, kg, 02/24/24 10:05:00 EST, Weight Dosing Start Date: 02/24/24 Stop Date: 02/29/24 Status: Ordered calcium carbonate 1500 mg oral tablet (3 sources) Start: 04-29-2020 take 1 tablet by mouth once daily calcium (as carbonate) 600 mg oral tablet 600 mg = 1 tab(s), Oral, Daily, Prophylaxis Start Date: 04/29/20 Status: Ordered Celebrate Multivitamin oral capsule (3 sources) Start: 04-29-2020 take 1 capsule by mouth once daily Celebrate Multivitamin oral capsule 1 cap(s), Oral, Daily, Prophylaxis Start Date: 04/29/20 Status: Ordered colestipol hydrochloride 1000 mg oral tablet (5 sources) Bile Acid Sequestrant Start: 10-26-2023 take 1 tablet by mouth once daily colestipol 1 g Tab See Instructions, TAKE 1 TABLET BY MOUTH EVERY DAY, # 90 tab(s), Refills(s) 1, Pharmacy: [facility] STORE [id number], 166, cm, 08/24/23 8:56:00 EDT, Height/Length Dosing, 84, kg, 08/24/23 8:56:00 EDT, Weight Dosing Start Date: 10/26/23 Status: Ordered Start: 04-27-2023 take 1 tablet by [facility] once daily Colestid 1 g Tab 1 gm = 1 tab(s), Oral, Daily, # 90 tab(s), Refills(s) 1, [id number] 166, cm, 03/16/23 9:10:00 EST, Height/Length Dosing, 85.6, kg, 03/16/23 9:10:00 EST, Weight Dosing Start Date: 04/27/23 Status: Ordered Start: 01-20-2023 take 1 tablet by eric th in the morning colestipol (Colestid) 1 g tablet Take 1 g by mouth in the morning. 01/20/2023 Active Start: 04-07-2021 take 1 tablet by eric th once daily in the morning Colestid 1 g oral tablet 1 gm = 1 tab(s), Oral, qAM, Refills(s) 0 Start Date: 04/07/21 Status: Ordered hydroCHLOROthiazide 12.5 mg oral capsule (3 sources) Thiazide Diuretic Start: 01-18-2024 take 1 capsule by mouth once daily hydrochlorothiazide 12.5 mg Cap See Instructions, TAKE 1 CAPSULE BY MOUTH EVERY DAY, # 90 cap(s), Refills(s) 3, Pharmacy: [facility] [id number], 167.5, cm, 12/24/23 10:08:00 EDT, Height/Length Dosing, 83.2, kg, 12/24/23 10:08:00 EDT, Weight Dosing Start Date: 01/18/24 Status: Ordered Start: 02-26-2023 take [address] [facility] once daily hydrochlorothiazide 12.5 mg Cap 12.5 mg = 1 cap(s), Oral, Daily, # 90 cap(s), Refills(s) 3, [id number] 166, cm, 02/02/23 8:45:00 EDT, Height/Length Dosing, 85, kg, 02/02/23 8:45:00 EDT, Weight Dosing Start Date: 02/26/23 Status: Ordered Start: 02-02-2023 take 1 capsule by mo uth once daily hydrochlorothiazide 12.5 mg Cap 12.5 mg = 1 cap(s), Oral, Daily, # 30 cap(s), Refills(s) 2, [id number] 166, cm, 02/02/23 8:45:00 EDT, Height/Length Dosing, 85, kg, 02/02/23 8:45:00 EDT, Weight Dosing Start Date: 02/02/23 Status: Ordered losartan potassium 25 mg oral tablet (5 sources) Angiotensin 2 Receptor Peter Start: 02-23-2024 take 1 tablet by mouth twice daily losartan 25 mg Tab 25 mg = 1 tab(s), Oral, BID, # 180 tab(s), Refills(s) 3, [id number] 167.5, cm, 02/15/24 11:55:00 EDT, Height/Length Dosing, 84.4, kg, 02/15/24 11:55:00 EDT, Weight Dosing Start Date: 02/23/24 Status: Ordered Start: 12-08-2022 End: 05-03-2023 take 1 tablet by mouth twice daily losartan 25 mg Tab 25 mg = 1 tab(s), Oral, BID, # 180 tab(s), Refills(s) 3, Pharmacy: [facility]/pharmacy #[id number], 166, cm, 03/16/23 9:10:00 EST, Height/Length Dosing, 85.6, kg, 03/16/23 9:10:00 EST, Weight Dosing Start Date: 05/25/23 Status: Ordered methylPREDNISolone 4 mg oral tablet (1 source) Corticosteroid Start: 02-24-2024 End: 03-01-2024 Medrol 4 mg Tab = 1 packet(s), Oral, As Directed, as directed on package labeling, X 6 day(s), # 21 tab(s), Refills(s) 0, [id number], 167.5, cm, 02/24/24 10:05:00 EST, Height/Length Dosing, 83.8, kg, 02/24/24 10:05:00 EST, Weight Dosing Start Date: 02/24/24 Stop Date: 03/01/24 Status: Ordered Misc Medication (1 source) Start: 12-01-2022 Misc Medication Daily Start Date: 12/01/22 Status: Ordered Nature's Bounty Red Krill Oil (2 sources) Start: 12-01-2022 take 500 mg by mouth once daily Nature's Bounty Red Krill Oil 500 mg, Oral, Daily, Refill(s) 0 Start Date: 12/01/22 Status: Ordered microencapsulated potassium chloride 20 meq extended release oral tablet (4 sources) Start: 01-18-2024 take 1 tablet by mouth once daily Klor-Con M20 oral tablet, extended release See Instructions, TAKE 1 TABLET BY MOUTH EVERY DAY, # 90 tab(s), Refills(s) 1, Pharmacy: [facility] [id number], 167.5, cm, 12/24/23 10:08:00 EDT, Height/Length Dosing, 83.2, kg, 12/24/23 10:08:00 EDT, Weight Dosing Start Date: 01/18/24 Status: Ordered Start: 02-02-2023 take 1 tablet by eric th once daily Klor-Con M20 oral tablet, extended release 20 mEq = 1 tab(s), Oral, Daily, # 90 tab(s), Refills(s) 1, [id number], 166, cm, 08/24/23 8:56:00 EDT, Height/Length Dosing, 84, kg, 08/24/23 8:56:00 EDT, Weight Dosing Start Date: 08/24/23 Status: Ordered Probiotic (1 source) Start: 12-02-2023 take 1 tablet by eric th once daily Probiotic Probiotic, 1 tab, Oral, Daily Start Date: 12/02/23 Status: Ordered Vitamin D3 (3 sources) Start: 04-29-2020 take 50 ug by mouth once daily Vitamin D3 50 mcg, Oral, Daily, Prophylaxis Start Date: 04/29/20 Status: Ordered Completed/Discontinued Medications Medication Drug Class(es) Dates Sig (Normalized) Sig (Original) albuterol 0.83 mg/ml inhalation solution (6 sources) beta2-Adrenergic Agonist Start: 02-24-2024 albuterol 0.083% Inh Yaima 3 mL See Instructions, 30 EA, Refill(s) 1, INHALE CONTENTS OF 1 VIAL VIA NEBULIZER EVERY 4 HOURS*J45.909*, [facility]/pharmacy #[id number], 167.5, cm, 02/24/24 10:05:00 EST, Height/Length Dosing, 83.8, kg, 02/24/24 10:05:00 EST, Weight Dosing Start Date: 02/24/24 Status: Ordered Start: 12-01-2022 albuterol NEB, q4hr, PRN Allergy symptoms, Refills(s) 0 Start Date: 12/01/22 Status: Ordered take 2 puff(s) by in halation every six hours as needed albuterol HFA (Ventolin HFA) 90 mcg/act inhaler Inhale 2 puffs every 6 (six) hours if needed (only as needed). Active Problems Active Problems Problem Classification Problem Date Documented Date Episodic/Chronic Acquired foot deformities (2 sources) Acquired hammer toe of left foot; Translations: [Other hammer toe(s) (acquired), left foot] Onset: 01-28-2001-27-2023 Chronic Acquired foot deformities (2 sources) Acquired hammer toe of right foot; Translations: [Other hammer toe(s) (acquired), right foot] Onset: 01-28-2001-27-2023 Chronic Asthma (4 sources) Unspecified asthma, uncomplicated; Translations: [Asthma] Onset: 10-01-1904-07-2021 Chronic Conditions associated with dizziness or vertigo (4 sources) Benign paroxysmal vertigo, unspecified ear; Translations: [BENIGN PAROXYSMAL VERTIGO UNS EAR] Onset: 06-05-19 Episodic Disorders of lipid metabolism (1 source) Hypercholesterolemia 02-24-2024 Chronic Diverticulosis and diverticulitis (4 sources) Diverticulosis of large intestine without perforation or abscess without bleeding; Translations: [Diverticular disease] Onset: 10-01-1904-07-2021 Chronic Esophageal disorders (4 sources) Gastro-esophageal reflux disease without esophagitis; Translations: [Gastroesophageal reflux disease] Onset: 10-01-1904-07-2021 Chronic Essential hypertension (4 sources) Essential (primary) hypertension; Translations: [Hypertensive disorder] Onset: 12-16-1904-07-2021 Chronic Headache; including migraine (3 sources) Migraine 04-07-2021 Chronic Malaise and fatigue (7 sources) Other fatigue; Translations: [Fatigue] Onset: 12-13-19 Episodic Mycoses (1 source) Onychomycosis; Translations: [Tinea unguium] 02-23-2024 Episodic Nonspecific chest pain (1 source) Chest pain 12-03-2023 Episodic Nutritional deficiencies (4 sources) Vitamin D deficiency, unspecified; Translations: [Vitamin D deficiency] Onset: 10-01-19 22 04-07-2021 Chronic Osteoporosis (6 sources) Age-related osteoporosis without current pathological fracture; Translations: [Osteoporosis] Onset: 10-01-1904-07-2021 Chronic Other and unspecified benign neoplasm (3 sources) History of polyp of colon 04-08-2021 Episod ic Other circulatory disease (1 source) Peripheral vascular disease; Translations: [Other specified peripheral vascular diseases] 02-23-2024 Chronic Other congenital anomalies (2 sources) Porokeratosis; Translations: [Other specified congenital malformations of skin] Onset: 01-28-2001-27-2023 Chronic Other connective tissue disease (1 source) Presence of right artificial knee joint; Translations: [PRESENCE RT ARTIFICIAL KNEE JOINT] Onset: 10-01-19 Chronic Other connective tissue disease (2 sources) Cramp in lower limb 08-24-2023 Episodic Other connective tissue disease (1 source) Pain in both feet; Translations: [Pain in right foot] 02-23-2024 Episodic Other ear and sense organ disorders (2 sources) Impacted cerumen 03-16-2023 Episodic Other gastrointestinal disorders (1 source) Irritable bowel syndrome without diarrhea; Translations: [IRRITABLE BOWEL SYND W/O DIARRHEA] Onset: 08-22-19 Chronic Other gastrointestinal disorders (3 sources) Alteration in bowel elimination 07-01-2021 Episodic Other lower respiratory disease (1 source) Cough 02-24-2024 Episodic Other lower respiratory disease (1 source) Dyspnea 12-03-2023 Episodic Other non-traumatic joint disorders (1 source) Hip pain 12-03-2023 Episodic Other nutritional; endocrine; and metabolic disorders (3 sources) Body mass index 30+ - obesity 07-01-2021 Chronic Other nutritional; endocrine; and metabolic disorders (1 source) Body mass index 25-29 - overweight 12-03-2023 Episodic Other nutritional; endocrine; and metabolic disorders (1 source) Overweight in adulthood with body mass index of 25 or more but less than 30 12-03-2023 Episodic Other skin disorders (1 source) Callosity; Translations: [Corns and callosities] 02-23-2024 Episodic Other upper respiratory disease (3 sources) Seasonal allergic rhinitis 04-07-2021 Chronic Unclassified (3 sources) CONTACT W/AND (SUSP) EXPOS COVID-19; Translations: [CONTACT W/AND (SUSP) EXPOS COVID-19] Onset: 12-04-19 Urinary tract infections (3 sources) Chronic urinary tract infection 04-07-2021 Episodic [...] 09-30-2021 Episodic Other aftercare (1 source) Other superintendent container terminal (current) drug therapy; Translations: [OTH CARE HOME CURRENT DRUG THERAPY] Onset: 12-05-2021 Episodic Other [...] Name Value Interpretation Reference Range Facil ity Reminderson 02-25-2024 Reminders Reminders - From: Sabina Ruth To: [facility] - Clinical; Sent: 02/25/2024 08:46:06 EST Show up: 02/25/2024 08:46:00 EST Subject: Ambulatory Reminder Due Date/Time: 02/26/2024 08:45:00 EST cholesterol and thyroid labs all look good Results: Date Result Name Value Ref Range 02/24/2024 10:28 Chol 166 mg/dL (120 - 200) 02/24/2024 10:28 Trig 102 mg/dL ( - <=149) 02/24/2024 10:28 HDL 55 mg/dL 02/24/2024 10:28 LDL Direct 92 mg/dL ( - <=129) 02/24/2024 10:28 VLDL 20 mg/dL (7 - 40) 02/24/2024 10:28 TSH 1.56 mcIU/mL (0.34 - 5.60) - From: Chely Herzog M.A. ([facility] - Clinical) To: Sabina Ruth; Sent: 02/25/2024 09:25:04 EST Show up: 02/25/2024 09:23:00 EST Subject: RE: Ambulatory Reminder verbalizes understanding Normal [facility] Ambulatory Visit Summaryon 1 04-25-2023 Ambulatory Visit Summary Ambulatory Visit Summary NORI PRESTON:1940 Visit Date:02/24/2024 Ambulatory Visit Instructions Your Diagnosis HTN (hypertension) Hypercholesteremia Cough Shortness of breath BMI 29.0-29.9,adult Your Care Team Attending Physician - Sabina Ruth Primary Care Physician - Sabina Ruth This Is Your Medications List APAP/butalbital/caff eine (APAP/butalbital/caf feine 325 mg-50 mg-40 mg Tab) Non-Formulary Medication (Probiotic) albuterol alendronate (alendronate 70 mg Tab) azithromycin (azithromycin 250 mg Tab) calcium carbonate (calcium (as carbonate) 600 mg oral tablet) cholecalciferol (Vitamin D3) colestipol (colestipol 1 g Tab) hydrochlorothiazide (hydrochlorothiazide 12.5 mg Cap) losartan (losartan 25 mg Tab) methylPREDNISolone (Medrol 4 mg Tab) multivitamin with minerals (Celebrate Multivitamin oral capsule) potassium chloride (Klor-Con M20 oral tablet, extended release) Procedures Performed Cataract extraction and insertion of intraocular lens (05/14/2020), Cataract extraction and insertion of intraocular lens (04/30/2020), Colonoscopy (11/25/2016), Colonoscopy (10/11/2013), Colonoscopy (09/28/2012), Appendectomy, Arthroplasty of knee, Cervical polypectomy, Cholecystectomy, Cystoscopy, Urethral dilatation. Discharge Vitals Temperature (Tympanic) 36.5 ???C Heart Rate (Peripheral) 80 Respiratory Rate 18 Blood Pressure 148/80 Height 167.5 cm Height 66 in Weight 83.8 kg Weight 184.36 lb BMI 29.87 What to do next Scheduled Follow-Up Appointments 2024 11:00 AM EDT Where: [place] [address]- Medications What How Much When Why Instructions New azithromycin (azithromycin 250 mg Tab) 1 Packets By Mouth As Directed HTN (hypertension) Hypercholesteremia Duration: 5 Days as directed on package labeling Pickup at [facility]/pharmacy #[id number] New methylPREDNISolone (Medrol 4 mg Tab) 1 Packets By Mouth As Directed HTN (hypertension) Hypercholesteremia Duration: 6 Days as directed on package labeling Pickup at [facility]/pharmacy #[id number] Unchanged albuterol Nebulized inhalation (aerosol) Every 4 hours as needed for Allergy symptoms Unchanged alendronate (alendronate 70 mg Tab) See instructions TAKE 1 TABLET ONCE EVERY 7 DAYS Unchanged APAP/ butalbital/ caffeine (APAP/ butalbital/ caffeine [...] DAY Unchanged hydrochlorothiazide (hydrochlorothiazide 12.5 mg Cap) See instructions TAKE 1 CAPSULE BY MOUTH EVERY DAY Unchanged losartan (losartan 25 mg Tab) 1 Tablets By Mouth 2 times a day BMI 31.0-31.9,adult Non-smoker Hypertension Unchanged multivitamin with minerals (Celebrate Multivitamin oral capsule) 1 Capsules By Mouth Every day Unchanged Non-Formulary Medication (Probiotic) 1 tab By Mouth Every day Unchanged potassium chloride (Klor-Con M20 oral tablet, extended release) See instructions TAKE 1 TABLET BY MOUTH EVERY DAY Pharmacy Information [facility]/pharmacy #[id number]: [address], [place] [id number] [phone] Allergies cefuroxime (Syncope and collapse, Itch) amitriptyline (Unknown) Problems Ongoing - Any problem that you are currently receiving treatment for. Allergic rhinitis, seasonal Asthma BMI 29.0-29.9,adult BMI 30.0-30.9,adult Cerumen impaction Change in bowel habits Chest pain Chronic UTI Cough Diverticulosis Fatigue GERD (gastroesophageal reflux disease) HTN (hypertension) Hypercholesteremia Leg cramps Migraines Osteoporosis Overweight (BMI 25.0-29.9) Personal history of colonic polyps Right hip pain Shortness of breath Vitamin D deficiency Patient Survey You may receive a survey via text or e-mail asking about your office visit. Please share your experience with us by completing your survey. We appreciate your feedback and thank you for choosing us for your care. Normal [facility] CHEMISTRYOrdered By: SYSTEM SYSTEM on 02-24-2024 Cholesterol [Mass/Vol] 166 mg/dL Normal 120 - 200 mg/dL Remisol Chem Cholesterol in HDL [Mass/Vol] 55 mg/dL Invalid Interpretation Code Remisol Chem Comment on above: Result Comment: '>= 60 LOW RISK' '<= 40 HIGH RISK' Cholesterol in LDL [Mass/Vol] 92 mg/dL Normal <=129mg/dL Remisol Chem Cholesterol in VLDL [Mass/Vol] 20 mg/dL Normal 7 - 40 mg/dL Remisol Chem Triglyceride [Mass/Vol] 102 mg/dL Normal <=149mg/dL Remisol Chem TSH Qn 1.56 m[IU]/L Normal 0.34 - 5.60 mcIU/mL Rem isol Chem Family Medicine Office/Clini c Noteon 02-24-2024 Family Medicine Office/Clinic Note Family Medicine Office/Clinic Note Chief Complaint 6m follow up HPI Staff Pt presents today for 6m follow up to HTN Patient is here for follow up on hypertension. How often are you checking your blood pressure? Couple times a week What are your average readings? _130/80 Yearly BMP: 08/24/23 Seen last week by Monica for sick visit. Still having chest tightness & short winded. History of Present Illness pt presents today for URI symptoms and 6 month follow up with labs Review of Systems PHQ Score Initial Depression Screen Score: 0 SCORE Physical Exam Vitals & Measurements T: 36.5 ???C(Tympanic) HR: 80(Peripheral) RR: 18 BP: 148/80 SpO2: 99% HT: 66 in HT: 167.5 cm WT: 83.8 kg WT: 184.36 lb BMI: 29.87 General: alert, no acute distress ENMT: oral mucosa moist, no pharyngeal erythema or exudate Cardiovascular: regular rate and rhythm, normal peripheral perfusion Respiratory: Lungs CTA, respirations non labored Extremities: no deformity, no trauma Neurological: oriented x 4, LOC appropriate for age, CN II-XII intact, motor strength equal & normal bilaterally, speech normal Assessment/Plan 1. HTN (hypertension) (I10: Essential (primary) hypertension) Bp meds refilled. labs drawn in office today. Ordered: azithromycin, = 1 packet(s), Oral, As Directed, as directed on package labeling, X 5 day(s), # 6 tab(s), Refills(s) 0, Pharmacy: [facility]/pharmacy #[id number], 167.5, cm, 02/24/24 10:05:00 EST, Height/Length Dosing, 83.8, kg, 02/24/24 10:05:00 EST, Weight Dosing losartan, 25 mg = 1 tab(s), Oral, BID, # 180 tab(s), Refills(s) 3, [id number] 166, cm, 03/16/23 9:10:00 EST, Height/Length Dosing, 85.6, kg, 03/16/23 9:10:00 EST, Weight Dosing losartan, 25 mg = 1 tab(s), Oral, BID, # 180 tab(s), Refills(s) 3, [id number], 167.5, cm, 02/15/24 11:55:00 EDT, Height/Length Dosing, 84.4, kg, 02/15/24 11:55:00 EDT, Weight Dosing methylPREDNISolone, = 1 packet(s), Oral, As Directed, as directed on package labeling, X 6 day(s), # 21 tab(s), Refills(s) 0, [id number] 167.5, cm, 02/24/24 10:05:00 EST, Height/Length Dosing, 83.8, kg, 02/24/24 10:05:00 EST, Weight Dosing Lipid Panel Thyroid Stimulating Hormone 2. Hypercholesteremia (E78.00: Pure hypercholesterolemia , unspecified) lipid panel in office today Ordered: azithromycin, = 1 packet(s), Oral, As Directed, as directed on package labeling, X 5 day(s), # 6 tab(s), Refills(s) 0, [id number], 167.5, cm, 02/24/24 10:05:00 EST, Height/Length Dosing, 83.8, kg, 02/24/24 10:05:00 EST, Weight Dosing methylPREDNISolone, = 1 packet(s), Oral, As Directed, as directed on package labeling, X 6 day(s), # 21 tab(s), Refills(s) 0, [id number], 167.5, cm, 02/24/24 10:05:00 EST, Height/Length Dosing, 83.8, kg, 02/24/24 10:05:00 EST, Weight Dosing Lipid Panel Thyroid Stimulating Hormone 3. Cough (R05.9: Cough, unspecified) pt c/o worsening cough and shortness of breath. will order x ray. will send z wilmer and medrol dose pack to pharmacy. 4. Shortness of breath (R06.02: Shortness of breath) chest x ray ordered 5. BMI 29.0-29.9,adult (Z68.29: Body mass index [BMI] 29.0-29.9, adult) BMI education given Orders: amoxicillin, See Instructions, TAKE 4 CAPSULES BY MOUTH 1/2 HOUR BEFORE PROCESURE AND 2 CAPSULES 4 HOURS AFTER, # 6 caplet(s), Refills(s) 1, Pharmacy: [facility]/pharmacy #[id number], 166, cm, 08/24/23 8:56:00 EDT, Height/Length Dosing, 84, kg, 08/24/23 8:56:00 EDT, Weight Dosing Follow-up No qualifying data available Problem List/Past Medical History Ongoing Allergic rhinitis, seasonal Asthma BMI 29.0-29.9,adult BMI 30.0-30.9,adult Cerumen impaction Change in bowel habits Chest pain Chronic UTI Cough Diverticulosis Fatigue GERD (gastroesophageal reflux disease) HTN (hypertension) Hypercholesteremia Leg cramps Migraines Osteoporosis Overweight (BMI 25.0-29.9) [...] PRN alendronate 70 mg Tab, See Instructions APAP/butalbital/caff eine 325 mg-50 mg-40 mg Tab, 1 tab(s), Oral, q4hr, PRN azithromycin 250 mg Tab, 1 packet(s), Oral, As Directed calcium (as carbonate) 600 mg oral tablet, 600 mg= 1 tab(s), Oral, Daily Celebrate Multivitamin oral capsule, 1 cap(s), Oral, Daily colestipol 1 g Tab, See Instructions hydrochlorothiazide 12.5 mg Cap, See Instructions Klor-Con M20 oral tablet, extended release, See Instructions losartan 25 mg Tab, 25 mg= 1 tab(s), Oral, BID (more content not included)... Normal [facility] Comment on above: Result Comment: Elec tronically Signed By: Sabina Ruth\.br\Date and Time Signed: 02/24/24 10:38 EST Lipid Panelon 02-24-2024 Cholesterol [Mass/Vol] 166 mg/dL Normal 120-200 [facility] Comment on above: Performed By: #### 2 [id number] #### [facility] Laboratory [address] [place] [address] Cholesterol in HDL [Mass/Vol] 55 mg/dL Invalid Interpretation Code [facility] Comment on above: Result Comment: '>= 60 LOW RISK' '<= 40 HIGH RISK' Performed By: #### 2 [id number] #### [facility] Laboratory [address] [place] [address] Cholesterol in LDL [Mass/Vol] 92 mg/dL Normal <=129 [facility] Comment on above: Performed By: #### 2 [id number] #### [facility] [address] [place] [address] Cholesterol in VLDL [Mass/Vol] 20 mg/dL Normal 7-40 [facility] Comment on above: Performed By: #### 2 [id number] #### [facility] [address] [place] [address] Triglyceride [Mass/Vol] 102 mg/dL Normal <=149 [facility] Comment on above: Performed By: #### 2 [id number] #### [facility] Laboratory [address] [place] [address] TSHon 02-24-2024 TSH Qn 1.56 m[IU]/L Normal 0.34-5.60 [facility] Comment on above: Performed By: #### 2 [id number] #### [facility] Laboratory [address] [place] [address] [facility] Medicine Office/Clini c Noteon 02-15-2024 Family Medicine Office/Clinic Note Family Medicine Office/Clinic Note [facility] Staff Nori is a 83 year old [...] with a non-smoker Ordered: Rapid COVID POC 89873 3. BMI 30.0-30.9,adult (Z68.30: Body mass index [...] at subsequent visits. Ordered: Rapid COVID POC 16885 4. 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 Ordered: Rapid COVID POC 26083 Follow-up No qualifying data available Patient Education Allergic Rhinitis, Adult, Smkf-tk-Mtcc Problem List/Past Medical History Ongoing Allergic rhinitis, [...] Instructions Klor (more content not included)... Normal [facility] Comment on above: Result Comment: Elec tronically Signed By: MONICA RODRÍGUEZ CNP\.br\Date and Time Signed: 02/15/24 13:18 EDT Ambulatory Visit Summaryon 0 12-24-2023 Ambulatory Visit Summary Ambulatory Visit Summary BREANNA PRESTONBERHANE Guevara :1940 Visit Date:12/24/2023 Ambulatory Visit Instructions Your [...] Follow-Up Appointments 2023 10:00 AM EST With: Linda MAHAN, Sabina Hall Where: [address] [address]- 2024 11:00 AM EDT With: Where: [address] [address]- Medications What How Much When Why Instructions [...] for choosing us for your care. Normal [facility] Family Medicine Office/Clini c Noteon 12-24-2023 Family [...] mRNA (toz (more content not included)... Normal [facility] Comment on above: Result Comment: [...] 9:00 AM EDT With: Sabina Ruth Where: [address] [address]- 2023 10:00 AM EST With: Sabina Ruth Where: [address] [address]- 2024 11:00 AM EDT With: Where: [address] [address]- Medications What How Much When [...] BMI calculated? (more content not included)... Normal [facility] Ambulatory Visit Summary Ambulatory Visit Summary NORI [...] What to do next Scheduled Follow-Up Appointments Dustin Sep. 6, 2024 10:00 AM EDT With: Sabina Ruth Where: [address] [id number]- 2023 10:00 AM EST With: Sabina Ruth Where: [address] [id number]- 2024 11:00 AM EDT With: Where: [address] [address]- Medications What How Much When Why Instructions [...] choosing us for your care. Normal [facility] Family Medicine Office/Clini c Noteon 12-03-2023 Family [...] of clutter to prevent tripping and/or falling. [place] Advance Directives reviewed. Documents are scanned into [...] PCP visit. Labs to be completed with [facility]. No concerns with bowel/ bladder. Colonoscopy last [...] of jovanni (more content not included)... Normal [facility] Comment on above: Result Comment: [...] referral to go to Dr. Rajput in [place], this is who her sees. patient originally thought she just pulled a muscle in her chest when pulling weeds. but with her having SOB and fatigue I feel she needs further work up by cardiology. Ordered: ECG 12 Lead Adult [facility] External Ambulatory Referral 2. Shortness of breath (R06.02: Shortness of breath) pt gets very short of breath on any exertion Ordered: ECG 12 Lead Adult [facility] External Ambulatory Referral 3. Fatigue (R53.83: Other fatigue) EKG, carotid artery u/s and chest x ray ordered Ordered: [facility] External Ambulatory Referral 4. Non-smoker (Z78.9: Other specified health status) continue not smoking Ordered: potassium chloride, 20 mEq = 1 tab(s), Oral, Daily, # 30 tab(s), Refills(s) 6, Pharmacy: [facility]/pharmacy #[id number], 166, cm, 02/02/23 8:45:00 EDT, Height/Length Dosing, 85, kg, 02/02/23 8:45:00 EDT, Weight Dosing Body Mass Index (BMI) documented 3008F Current tobacco non-user 1036F Depression Screening Negative 3352F Discharge medications reconciled with current medications in outpatient record 1111F ECG 12 Lead Adult [facility] External Ambulatory Referral Medication list documented in medical record 1159F Patient screen for fall risk: no falls in last year or 1 fall with no injury in last year 1101F Review of all meds by a prescribing practitioner or clinical pharmacist documented in EHR 1160F 5. BMI 29.0-29.9,adult (Z68.29: Body mass index [BMI] 29.0-29.9, adult) BMI education given Ordered: ECG 12 Lead Adult [facility] External Ambulatory Referral 6. Overweight (BMI 25.0-29.9) (E66.3: Overweight) see above Ordered: ECG 12 Lead Adult 7. Right hip pain (M25.551: Pain in right hip) pt had injection in right hip a few years ago and was pain free until a couple weeks ago. she is going to see eap specialist first. if hip continues to be a problem we will order x ray and pain management for injection Orders: potassium chloride, 20 mEq = 1 tab(s), Oral, Daily, # 90 tab(s), Refills(s) 1, Pharmacy: [facility]/pharmacy #[id number], 166, cm, 08/24/23 8:56:00 EDT, Height/Length [...] Migraines O (more content not included)... Normal [facility] Comment on above: Result Comment: [...] Appointments 2023 1:00 PM EDT With: Where: [facility] Normal [address] [place] [address]- \.br\ Medications\.br\ What How Much When Why [...] for choosing us for your care.\.br\ \.br\ [facility] BMPon 08-24-2023 Anion gap [Moles/Vol] 10 mmol/L Normal 6-16 [facility] Comment on above: Performed By: #### 2 393023, 6775001, [id number], [id number] ####[facility] [address] [place] [address] Calcium [Mass/Vol] 9.4 mg/dL Normal 8.9-11.1 [facility] Comment on above: Performed By: #### 2 573357, 8721112, [id number], [id number] ####[facility] [address] [place] [address] Chloride [Moles/Vol] 104 mmol/L Normal 101-111 [facility] Comment on above: Performed By: #### 2 641442, 4419763, 90404336, [id number] ####[facility] [address] [place] [address] CO2 [Moles/Vol] 30 mmol/L Normal 21-31 [facility] Comment on above: Performed By: #### 2 983057, 7895656, [id number], [id number] ####[facility] [address] [place] [address] Creatinine [Mass/Vol] 0.7 mg/dL Normal 0.5-1.3 [facility] Comment on above: Performed By: #### 2 136513, 3279640, [id number], [id number] ####[facility] [address] [place] [address] Glucose [Mass/Vol] 79 mg/dL Normal 55-199 [facility] Comment on above: Performed By: #### 2 889070, 2189716, 49433865, [id number] ####[facility] [address] [place] [address] Potassium [Moles/Vol] 4.3 mmol/L Normal 3.5-5.3 [facility] Comment on above: Performed By: #### 2 309386, 6501139, 18503320, [id number] ####[facility] [address] [place] [address] Sodium [Moles/Vol] 140 mmol/L Normal 135-145 [facility] Comment on above: Performed By: #### 2 306369, 1967088, 48038447, [id number] ####[facility] [address] [place] [address] Urea nitrogen [Mass/Vol] 19 mg/dL Normal 5-21 [facility] Comment on above: Performed By: #### 2 134705, 3722245, [id number], [id number] ####[facility] [address] [place] [address] Urea nitrogen/Creatinine [Mass ratio] 27 No Units High 10-20 [facility] Comment on above: Performed By: #### 2 472302, 8881149, 12072806, [id number] ####[facility] [address] [place] [address] CHEMISTRYOrdered By: SYSTEM SYSTEM on 08-24-2023 25-hydroxyvitamin [...] ug/dL Normal 35 - 153 mcg/dL William yaima Chem Potassium [Moles/Vol] 4.3 mmol/L Normal 3.5 - 5.3 mmol/L Remisol Chem Sodium [Moles/Vol] 140 mmol/L Normal 135 - 145 mmol/L Remisol Chem Urea nitrogen [Mass/Vol] 19 mg/dL Normal 5 - 21 mg/dL Remisol Chem Urea nitrogen/Creatinine [Mass ratio] 27 mg/mg High 10 - 20 Remisol Chem Family Medicine Office/Clini c Noteon 08-24-2023 [facility] Medicine Office/Clinic Note HPI Staff Noir is an 82 year old female presenting [...] Metabolic Panel Iron Level Lab Specimen Collect [address] Vitamin D 25 Hydroxy 3. Leg cramps (R25.2: Cramp and spasm) pt c/o leg cramps and feeling week will check electrolytes today Ordered: Basic Metabolic Panel Iron Level Lab Specimen Collect 41707 Vitamin D 25 Hydroxy 4. Non-smoker (Z78.9: Other specified health status) continue not smoking Ordered: Basic Metabolic Panel Iron Level Lab Specimen Collect 77388 Vitamin D 25 Hydroxy 5. BMI 30.0-30.9,adult (Z68.30: Body mass index [BMI] 30.0-30.9, adult) BMI education complete Ordered: Basic Metabolic Panel Iron Level Lab Specimen Collect [address] Vitamin D 25 Hydroxy Orders: amoxicillin, See Instructions, TAKE 4 CAPSULES BY MOUTH 1/2 HOUR BEFORE PROCEDURE AND 2 CAPSULES 4 HOURS AFTER PROCEDURE, # 6 cap(s), Refills(s) 1, [id number] 166, cm, 03/16/23 9:10:00 EST, Height/Length Dosing, 85.6, kg, 03/16/23 9:10:00 EST, W... amoxicillin, See Instructions, TAKE 4 CAPSULES BY MOUTH 1/2 HOUR BEFORE PROCESURE AND 2 CAPSULES 4 HOURS AFTER, # 6 caplet(s), Refills(s) 1, [id number] 166, cm, 08/24/23 8:56:00 EDT, Height/Length Dosing, 84, kg, 08/24/23 8:56:00 EDT, Weight Dosing potassium chloride, 20 mEq = 1 tab(s), Oral, Daily, # 90 tab(s), Refills(s) 1, [id number] 166, cm, 08/24/23 8:56:00 EDT, Height/Length [...] Cardiac arres (more content not included)... Normal [facility] Comment on above: Result Comment: Elec tronically Signed By: Sabina Ruth\.tato\Date and Time Signed: 08/24/23 13:06 EDT Ironon 08-24-2023 Iron [Mass/Vol] 63 microgram/dL Normal 35-153 [facility] Comment on above: Performed By: #### 2 807225, 0442087, [id number], [id number] ####[facility] [address] [place] [address] Patient Logson 08-24-2023 Patient Logs [id number] #1.00TIFF Normal [facility] Vitamin D 25 Hydroxyon 08-23 25-hydroxyvitamin D3 [Mass/Vol] 53.7 ng/mL Normal 30.0-100.0 [facility] Comment on above: Performed By: #### 2 054276, 2238522, [id number], [id number] ####[facility] [address] [place] [address] eGFRon 08-24-2023 eGFR 87 mL/min/1.73 m2 Normal >=59 [facility] Comment on above: Order Comment: Order added by Discern Expert. Performed By: #### 2 610031, 7975186, [id number], [id number] ####[facility] [address] [place] [address] Nurse Consultation Noteon Nurse Consultation Note Reason [...] 03/16/2023 Recorded covid 19 vishal-sucrose SARS-CoV-2 (COVID-19) mRNAMUL.ORD![id number] 02/23/2022 Recorded influenza virus vaccine, inactivated 02/10/2022 [...] 03/06/2010 Recorded influenza, whole 02/05/2009 Recorded Normal [facility] Immunization Recordson 03-18 Immunization Records [id number] #1.00TIFF Normal [facility] Ambulatory Visit Summaryon 05-16-2022 Ambulatory Visit Summary NORI PRESTON :1940 [...] Multivitamin oral capsule) omega-3 polyunsaturated fatty acids ([employer] Krill Oil) potassium chloride (Klor-Con [...] Appointments Wednesday 9:00 AM EST With: Where: [facility] Invalid Interpretation Code [address] [place] [address]- \.br\ Wednesday 2:00 PM EDT \.br\ With:\.br\ Where: [facility] Office/Clini c Noteon 03-16-2023 Family Medicine [...] PROCEDURE, # 6 cap(s), Refills(s) 1, Pharmacy: [facility]/pharmacy #[id number], 166, cm, 03/16/23 9:10:00 EST, Height/Length Dosing, 85.6, kg, 03/16/23 9:10:00 EST, W... APAP/butalbital/caff eine, 1 tab(s), Oral, q4hr Headache, 30 tab(s), Refill(s) 0, [facility]/pharmacy #[id number], 166, cm, 03/16/23 9:10:00 EST, Height/Length [...] Immunizations Vaccine Date Status Comments SARS-CoV-2 (COVID-19) mRNAMUL.ORD![id number] 02/23/2022 Recorded influenza virus vaccine, inactivated 02/10/2022 Recorded SARSCoV2 mRNA(tozinamer-vishal- sucros) vac 11/12/2021 Recorded influenza virus vaccine, inactivated - Not Given Patient Refuses SARS-CoV-2 (COVID-19) mRNA BNT-162b2 vax 01/23/2021 Recorded 2022-11-25: TPV75 (more content not included)... Normal [facility] Comment on above: Result Comment: Elec tronically Signed By: Linda MAHAN, Sabina Hall\.br\Date and Time Signed: 03/16/23 10:17 EST Patient Logson 03-16-2023 Patient Logs [id number] #1.00TIFF Normal [facility] Patient Logson 03-09-2023 Patient Logs [id number] #1.00TIFF Normal [facility] CHEMISTRYOrdered By: SYSTEM SYSTEM on 02-02-2023 Albumin [...] rate/Area] 74 mL/min/1.73 m2 Normal >=59mL/min/1.73 m2 [facility] Chem S Comment on above: Interpretive Data: [...] g/dL Normal 6.0 - 7.8 gm/dL F C Remisol Sodium [Moles/Vol] 142 mmol/L Normal 135 [...] 6.2 E9/L Normal 4.0 - 11.0 E9/L [facility] HemeAutoSS Orthopedic Office/Clinic Not otilio 05-06-2022 Orthopedic [...] appears appropriate from AP and lateral images. joyce Signed By: Reno EDEN, Zheng Thompson Electronically signed by Zheng Bojorquez MD 05/06/22 10:34 EST Normal [facility] XR Knee 1 or 2 Views [...] Electronically Signed in Other Vendor System) Normal [facility] MG MAMM SCREEN 3D JAMES CADon 12-19-2021 MG MAMM SCREEN 3D JAMES CAD Patient: NORI PRESTON Exam Date: 12/19/2021 : 1940 Gender:F Ordering : DR MAGO FREEDMAN . Admission #: [id number] Family : Order #: [id number] CLICK HERE TO VIEW EXAM RADIOLOGY REPORT [...] colon cancer at age 69. LOCATION: [facility] BREAST COMPOSITION: Extremely dense, which lowers [...] MD on 12/19/2021 at 13:46 Normal [facility] CBC AUTO DIFFon 12-12-2021 BASO # 0.0 103/ul Normal 0.0-0.1 [facility] Comment on above: Performed By: #### C BC #### [facility] [address] [place] [address] Dr. Kaiser García Basophils/100 WBC (Bld) 0.3 % Normal 0.2-2.0 [facility] Comment on above: Performed By: #### C BC #### [facility] [address] [place] [address] Dr. Kaiser García EO # 0.1 103/ul Normal 0.0-0.7 [facility] Comment on above: Performed By: #### C BC #### [facility] [address] [place] [address] Dr. Kaiser García Eosinophils/100 WBC (Bld) 1.9 % Normal 0.9-7.0 [facility] Comment on above: Performed By: #### C BC #### [facility] [address] [place] [address] Dr. Kaiser García Erythrocyte distribution width (RBC) [Ratio] 13.9 % Normal 11.0-15.0 [facility] Comment on above: Performed By: #### C BC #### [facility] [address] [place] [address] Dr. Kaiser García Hematocrit (Bld) [Volume fraction] 38.5 % Normal 36.0-48.0 [facility] Comment on above: Performed By: #### C BC #### [facility] [address] [place] [address] Dr. Kaiser García Hemoglobin (Bld) [Mass/Vol] 12.0 g/dL Normal 12.0-16.0 [facility] Comment on above: Performed By: #### C BC #### [facility] [address] [place] [address] Dr. Kaiser García IG # 0.03 10e3/ul Normal 0.00-0.03 [facility] Comment on above: Performed By: #### C BC #### [facility] [address] [place] [address] Dr. Kaiser García IG % 0.4 % Normal 0.0-0.5 [facility] Comment on above: Performed By: #### C BC #### [facility] [address] [place] [address] Dr. Kaiser García LYMPH # 2.5 103/ul Normal 1.2-3.8 [facility] Comment on above: Performed By: #### C BC #### [facility] [address] [place] [address] Dr. Kaiser García Lymphocytes/100 WBC (Bld) 35.7 % Normal 20.5-60.0 [facility] Comment on above: Performed By: #### C BC #### [facility] [address] [place] [address] Dr. Kaiser García MANUAL DIFF REQ NO Normal [facility] Comment on above: Performed By: #### C BC #### [facility] [address] [place] [address] Dr. Kaiser García MCH (RBC) [Entitic mass] 28.5 pg Normal 26.7-34.0 [facility] Comment on above: Performed By: #### C BC #### [facility] [address] [place] [address] Dr. Kaiser García MCHC (RBC) [Mass/Vol] 31.2 g/dL Normal 29.9-35.2 [facility] Comment on above: Performed By: #### C BC #### [facility] [address] [place] [address] Dr. Kaiser García MCV (RBC) [Entitic vol] 91.4 fL Normal 81.0-99.0 [facility] Comment on above: Performed By: #### C BC #### [facility] [address] [place] [address] Dr. Kaiser García MONO # 0.6 103/ul Normal 0.3-0.8 [facility] Comment on above: Performed By: #### C BC #### [facility] [address] [place] [address] Dr. Kaiser García Monocytes/100 WBC (Bld) 8.7 % Normal 1.7-12.0 [facility] Comment on above: Performed By: #### C BC #### [facility] [address] [address] [address] Kaiser García NEUT # 3.7 103/ul Normal 1.4-6.5 [facility] Comment on above: Performed By: #### C BC #### [facility] [address] [place] [address] Dr. Kaiser García Neutrophils/100 WBC (Bld) 53.0 % Normal 43.0-75.0 [facility] Comment on above: Performed By: #### C BC #### [facility] [address] [place] [address] Dr. Kaiser García Platelet mean volume (Bld) [Entitic vol] 9.4 fL Critically low 9.5-13.5 [facility] Comment on above: Performed By: #### C BC #### [facility] [address] [place] [address] Dr. Kaiser García PLT 244 103/ul Normal 150-450 [facility] Comment on above: Performed By: #### C BC #### [facility] [address] [place] [address] Dr. Kaiser García RBC 4.21 106/ul Normal 4.20-5.40 [facility] Comment on above: Performed By: #### C BC #### [facility] [address] [address] [address] Kaiser García WBC 6.9 103/ul Normal 4.0-11.0 [facility] Comment on above: Performed By: #### C BC #### [facility] [address] [place] [address] Dr. Kaiser García PROF 14(COMP METB)on 022 Albumin [Mass/Vol] 3.6 g/dL Normal 3.4-5.0 [facility] Comment on above: Performed By: #### C MP, TSH ####[facility] [address] [address]Dr. Kaiser García Albumin/Globulin [Mass ratio] 1.1 {ratio} Normal [facility] Comment on above: Performed By: #### C MP, TSH ####[facility] [address] [address]Dr. Kaiser García ALP [Catalytic activity/Vol] 51 U/L Normal 46-116 [facility] Comment on above: Performed By: #### C MP, TSH ####[facility] [address] [address]Dr. Kaiser García ALT [Catalytic activity/Vol] 19 U/L Normal 14-59 [facility] Comment on above: Performed By: #### C ROBBY, TSH ####[facility] [address] [address]Dr. Kaiser García Anion gap [Moles/Vol] 11.6 mmol/L Normal [facility] Comment on above: Performed By: #### C ROBBY, TSH ####[facility] [address] [place], [place] [address]Dr. Kaiser Ricky AST [Catalytic activity/Vol] 14 U/L Critically low 15-37 [facility] Comment on above: Performed By: #### C ROBBY, TSH ####[facility] [address] [address]Dr. Kaiser García Bilirubin [Mass/Vol] 0.3 mg/dL Normal 0.2-1.0 [facility] Comment on above: Performed By: #### C MP, TSH ####[facility] [address] [address]Dr. Kaiser Ricky Calcium [Mass/Vol] 9.0 mg/dL Normal 8.5-10.1 [facility] Comment on above: Performed By: #### C MP, TSH ####[facility] [address] [place], [place] [address]Dr. Kaiser García Chloride [Moles/Vol] 104 mmol/L Normal 98-107 [facility] Comment on above: Performed By: #### C MP, TSH ####[facility] [address] [address]Dr. Kaiser García CO2 [Moles/Vol] 28.4 mmol/L Normal 21.0-32.0 [facility] Comment on above: Performed By: #### C MP, TSH ####[facility] [address] [address]Dr. Kaiser García Creatinine [Mass/Vol] 0.73 mg/dL Normal 0.55-1.02 [facility] Comment on above: Performed By: #### C MP, TSH ####[facility] [address] [address]Dr. Kaiser García EGFR-AF LIBYAN >60 Normal >=60 [facility] Comment on above: Performed By: #### C ROBBY, TSH ####[facility] [address] [address]Dr. Kaiser García EGFR-NON AF LIBYAN >60 Normal >=60 [facility] Comment on above: Performed By: #### C ROBBY, TSH ####[facility] [address] [address]Dr. Kaiser García Globulin (S) [Mass/Vol] 3.4 g/dL Normal [facility] Comment on above: Performed By: #### C ROBBY, TSH ####[facility] [address] [address]Dr. Kaiser García Glucose [Mass/Vol] 73 mg/dL Critically low 74-106 [facility] [facility] Comment on above: Performed By: #### C ROBBY, TSH ####[facility] [address] [place] [address]Dr. Kaiser García Potassium [Moles/Vol] 4.0 mmol/L Normal 3.5-5.1 [facility] Comment on above: Performed By: #### C MP, TSH ####[facility] [address] [place] [address]Dr. Kaiser García Protein [Mass/Vol] 7.0 g/dL Normal 6.4-8.2 [facility] Comment on above: Performed By: #### C ROBBY, TSH ####[facility] [address] [place], [place] [address]Rd. Kaiser García Sodium [Moles/Vol] 140 mmol/L Normal 136-145 [facility] Comment on above: Performed By: #### C MP, TSH ####[facility] [address] [place], [place] [address]Mb. Kaiser García Urea nitrogen [Mass/Vol] 23.0 mg/dL Critically high 7.0-18.0 [facility] Comment on above: Performed By: #### C MP, TSH ####[facility] [address] [place], [place] [address]Et. Kaiser García Urea nitrogen/Creatinine [Mass ratio] 31.5 mg/mg Normal [facility] Comment on above: Performed By: #### C MP, TSH ####[facility] [address] [place], [place] [address]Gp. Kaiser García TSHon 12-12-2021 TSH 1.112 uIU/mL Normal 0.358-3.740 [facility] Comment on above: Performed By: #### C MP, TSH ####[facility] [address] [place], [place] [address]HeNia García XR CHEST 1 Von 12-04-2021 XR [...] Mesfin LIZ Date: 2021-12-03 23:19 Normal [facility] CBC AUTO DIFFon 12-03-2021 BASO # 0.0 103/ul Normal 0.0-0.1 [facility] Comment on above: Performed By: #### C BC #### [facility] [address] [place], [place] [address] Dr. Kaiser García Basophils/100 WBC (Bld) 0.3 % Normal 0.2-2.0 [facility] Comment on above: Performed By: #### C BC #### [facility] [address] [place] [address] Dr. Kaiser García EO # 0.1 103/ul Normal 0.0-0.7 [facility] Comment on above: Performed By: #### C BC #### [facility] [address] [place] [address] Dr. Kaiser García Eosinophils/100 WBC (Bld) 1.0 % Normal 0.9-7.0 [facility] Comment on above: Performed By: #### C BC #### [facility] [address] [place] [address] Dr. Kaiser García Erythrocyte distribution width (RBC) [Ratio] 13.8 % Normal 11.0-15.0 [facility] Comment on above: Performed By: #### C BC #### [facility] [address] [place] [address] Dr. Kaiser García Hematocrit (Bld) [Volume fraction] 38.5 % Normal 36.0-48.0 [facility] Comment on above: Performed By: #### C BC #### [facility] [address] [place] [address] Dr. Kaiser García Hemoglobin (Bld) [Mass/Vol] 12.4 g/dL Normal 12.0-16.0 [facility] Comment on above: Performed By: #### C BC #### [facility] [address] [place] [address] Dr. Kaiser García IG # 0.01 10e3/ul Normal 0.00-0.03 [facility] Comment on above: Performed By: #### C BC #### [facility] [address] [place] [address] Dr. Kaiser García IG % 0.2 % Normal 0.0-0.5 [facility] Comment on above: Performed By: #### C BC #### [facility] [address] [place] [address] Dr. Kaiser García LYMPH # 2.0 103/ul Normal 1.2-3.8 [facility] Comment on above: Performed By: #### C BC #### [facility] [address] [place] [address] Dr. aKiser García Lymphocytes/100 WBC (Bld) 32.4 % Normal 20.5-60.0 [facility] Comment on above: Performed By: #### C BC #### [facility] [address] [place] [address] Dr. Kaiser García MANUAL DIFF REQ NO Normal [facility] Comment on above: Performed By: #### C BC #### [facility] [address] [place] [address] Dr. Kaiser García MCH (RBC) [Entitic mass] 28.8 pg Normal 26.7-34.0 [facility] Comment on above: Performed By: #### C BC #### [facility] [address] [place] [address] Dr. Kaiser García MCHC (RBC) [Mass/Vol] 32.2 g/dL Normal 29.9-35.2 [facility] Comment on above: Performed By: #### C BC #### [facility] [address] [place] [address] Dr. Kaiser García MCV (RBC) [Entitic vol] 89.3 fL Normal 81.0-99.0 [facility] Comment on above: Performed By: #### C BC #### [facility] [address] [place] [address] Dr. Kaiser García MONO # 0.3 103/ul Normal 0.3-0.8 [facility] Comment on above: Performed By: #### C BC #### [facility] [address] [place] [address] Dr. Kaiser García Monocytes/100 WBC (Bld) 4.2 % Normal 1.7-12.0 [facility] Comment on above: Performed By: #### C BC #### [facility] [address] [place] [address] Dr. Kaiser García NEUT # 3.9 103/ul Normal 1.4-6.5 [facility] Comment on above: Performed By: #### C BC #### [facility] [address] [place] [address] [address] Kaiser García Neutrophils/100 WBC (Bld) 61.9 % Normal 43.0-75.0 [facility] Comment on above: Performed By: #### C BC #### [facility] [address] [place] [address] Dr. Kaiser García Platelet mean volume (Bld) [Entitic vol] 10.1 fL Normal 9.5-13.5 [facility] Comment on above: Performed By: #### C BC #### [facility] [address] [place] [address] Dr. Kaiser García PLT 175 103/ul Normal 150-450 [facility] Comment on above: Performed By: #### C BC #### [facility] [address] [place] [address] Dr. Kaiser García RBC 4.31 106/ul Normal 4.20-5.40 [facility] Comment on above: Performed By: #### C BC #### [facility] [address] [place] [address] Dr. Kaiser García WBC 6.2 103/ul Normal 4.0-11.0 [facility] Comment on above: Performed By: #### C BC #### [facility] [address] [place] [address] Dr. Kaiser García PROF 14(COMP METB)on 022 Albumin [Mass/Vol] 3.6 g/dL Normal 3.4-5.0 [facility] Comment on above: Performed By: #### H JAMIRPN, CMP #### [facility] [address] [place] [address] Dr. Kaiser García Albumin/Globulin [Mass ratio] 1.0 {ratio} Normal [facility] Comment on above: Performed By: #### H JAMIRPN, CMP #### [facility] [address] [place] [address] Dr. Kaiser García ALP [Catalytic activity/Vol] 54 U/L Normal 46-116 [facility] Comment on above: Performed By: #### H STROPN, CMP #### [facility] [address] [place] [address] [address] Kaiser García ALT [Catalytic activity/Vol] 17 U/L Normal 14-59 [facility] Comment on above: Performed By: #### H STROPN, CMP #### [facility] [address] [place] [address] [address] Kaiser García Anion gap [Moles/Vol] 15.4 mmol/L Normal [facility] Comment on above: Performed By: #### H STROPN, CMP #### [facility] [address] [place] [address] [address] Kaiser García AST [Catalytic activity/Vol] 21 U/L Normal 15-37 [facility] Comment on above: Performed By: #### H STROPN, CMP #### [facility] [address] [place] [address] Dr. Kaiser García Bilirubin [Mass/Vol] 0.4 mg/dL Normal 0.2-1.0 [facility] Comment on above: Performed By: #### H STROPN, CMP #### [facility] [address] [place] [address] [address] Kaiser García Calcium [Mass/Vol] 9.1 mg/dL Normal 8.5-10.1 [facility] Comment on above: Performed By: #### H STROPN, CMP #### [facility] [address] [place] [address] [address] Kaiser García Chloride [Moles/Vol] 101 mmol/L Normal 98-107 [facility] Comment on above: Performed By: #### H STROPN, CMP #### [facility] [address] [place] [address] [address] Kiaser García CO2 [Moles/Vol] 22.4 mmol/L Normal 21.0-32.0 [facility] Comment on above: Performed By: #### H STROPN, CMP #### [facility] [address] [place] [address] [address] Kaiser García Creatinine [Mass/Vol] 1.19 mg/dL Critically high 0.55-1.02 [facility] Comment on above: Performed By: #### H STROPN, CMP #### [facility] [address] [place] [address] [address] Kaiser García EGFR-AF LIBYAN 53 mL/min/1.73m2 Critically low >=60 [facility] Comment on above: Performed By: #### H STROPN, CMP #### [facility] [address] [place] [address] [address] Kaiser García EGFR-NON AF LIBYAN 44 mL/min/1.73m2 Critically low >=60 [facility] Comment on above: Performed By: #### H STROPN, CMP #### [facility] [address] [place] [address] [address] Kaiser García Globulin (S) [Mass/Vol] 3.5 g/dL Normal [facility] Comment on above: Performed By: #### H STROPN, CMP #### [facility] [address] [place] [address] [address] Kaiser García Glucose [Mass/Vol] 220 mg/dL Critically high 74-106 [facility] Comment on above: Performed By: #### H STROPN, CMP #### [facility] [address] [place] [address] [address] Kaiser García Potassium [Moles/Vol] 3.8 mmol/L Normal 3.5-5.1 [facility] Comment on above: Performed By: #### H STROPN, CMP #### [facility] [address] [place] [address] Dr. Kaiser García Protein [Mass/Vol] 7.1 g/dL Normal 6.4-8.2 [facility] Comment on above: Performed By: #### H STROPN, CMP #### [facility] [address] [place] [address] Dr. Kaiser García Sodium [Moles/Vol] 135 mmol/L Critically low 136-145 [facility] Comment on above: Performed By: #### H STROPN, CMP #### [facility] [address] [place] [address] Dr. Kaiser García Urea nitrogen [Mass/Vol] 22.0 mg/dL Critically high 7.0-18.0 [facility] Comment on above: Performed By: #### H DEEPALI, CMP #### [facility] [address] [place] [address] [address] Kaiser García Urea nitrogen/Creatinine [Mass ratio] 18.5 mg/mg Normal [facility] Comment on above: Performed By: #### H DEEPALI, CMP #### [facility] [address] [place] [address] [address] Kaiser García TROPONIN, HIGH SENSITIVITYon 12-03-2021 HSTROP 9.4 pg/mL Normal 4.0-51.3 [facility] Comment on above: Result Comment: CUT- OFF POINTS HAVE BEEN ESTABLISHED BASED ON THE FOURTH UNIVERSAL DEFINITIONS OF MYOCARDIAL INFARCTION. THE UPPER REFERENCE LIMIT (URL) OF TROPONIN, DEFINED THE 99TH PERCENTILE OF cTnI DISTRIBUTION IN A REFERENCE POPULATION, HAS BEEN CONFIRMED THE DECISION THRESHOLD FOR [place] DIAGNOSIS. Performed By: #### H DEEPALI, CMP #### [facility] [address] [place] [address] Dr. Kaiser García Covid-19 PCR (CVDTBH)on 11-17 SARS-CoV-2 (COVID-19) RNA DANIEL+probe Ql (Unsp spec) Not detected Normal NOT DETECTED [facility] Comment on above: Result Comment: This test is not yet approved or cleared by the [place] FDA. When there are no FDA-approved or cleared tests available, and other criteria are met, FDA can make tests available under an emergency access mechanism called an Emergency Use Authorization (EUA). The EUA for this test is supported by the [place] of Health and Human Service's (HHS's) declaration [...] consistent with SARS-CoV-2. Performed By: #### C VDTBH #### [facility] [address] [place] [address] [address] Kaiser García US ISABELLA DOP LEG [...] by: BERNARD REZA Date: 2021-10-17 16:45 Normal [facility] Encounters Encounter Date Encounter Type Care Provider Facility Start: 12-07-2024 ambulatory ELECTRICAL APPLIANCE MECHANIC Sabina L Linda Facil ity:[facility] Start: 05-08-2024 ambulatory Mago Freedman MD Fa cility:[facility] Start: 02-24-2024 End: 02-24-2024 Lab Drop off Sabina L Linda [facility] Start: 02-24-2024 End: 02-24-2024 ambulatory ELECTRICAL APPLIANCE MECHANIC Sabina L Linda Facility:[facility] Start: 02-23-2024 End: 02-23-2024 Bamboo flowsheet Capo Acuña DPM Work Phone: [facility] Start: 02-23-2024 End: 02-23-2024 Bamboo flowsheet Capo Acuña DPM Work Phone: [facility] Start: 02-23-2024 End: 02-23-2024 Patient encounter procedure Capo Acuña DPM Work Phone: [facility] Comment on above: Onychomycosis (Prima ry Dx); Corns and callosities; Other specified peripheral vascular diseases (CMS/HCC); Pain in both feet Start: 02-23-2024 End: 02-23-2024 ambulatory CAPO H ACUÑA Not Available Start: 02-15-2024 End: 02-15-2024 ambulatory MONICA RODRÍGUEZ Facility:[facility] Start: 12-24-2023 End: 12-24-2023 ambulatory ELECTRICAL APPLIANCE MECHANIC Sabina L Linda Facility:[facility] Start: 12-22-2023 End: 12-22-2023 ambulatory CAPO H ACUÑA Not Available Start: 12-03-2023 End: 12-03-2023 ambulatory ELECTRICAL APPLIANCE MECHANIC Sabina L Linda Facility:[facility] Start: 12-02-2023 End: 12-02-2023 ambulatory ELECTRICAL APPLIANCE MECHANIC Sabina L Linda Facility:[facility] Start: 10-18-2023 End: 10-18-2023 ambulatory CAPO H ACUÑA Not Available Start: 08-24-2023 End: 08-24-2023 Lab Drop off Sabina L Linda [facility] Start: 08-24-2023 End: 08-24-2023 ambulatory ELECTRICAL APPLIANCE MECHANIC Sabina L Linda Facility:[facility] Start: 08-12-2023 End: 08-12-2023 ambulatory CAPO H ACUÑA Not Available Start: 06-08-2023 End: 06-08-2023 ambulatory CAPO H ACUÑA Not Available Start: 04-01-2023 End: 04-01-2023 ambulatory CAPO H ACUÑA Not Available Start: 03-23-2023 End: 03-23-2023 ambulatory ELECTRICAL APPLIANCE MECHANIC Sabina L Linda Facility:[facility] Start: 03-16-2023 End: 03-16-2023 ambulatory ELECTRICAL APPLIANCE MECHANIC Sabina L Linda Facility:[facility] Start: 02-02-2023 End: 02-02-2023 Lab Drop off Sabina L Linda [facility] Start: 06-05-2022 End: 06-18-[address] MAGO FREEDMAN . Facility:[facility] Start: 05-06-2022 End: 05-07-2022 ambulatory Mago Freedman MD Facility:[facility] Start: 12-24-2021 End: 12-24-[address] MAGO FREEDMAN . Facility:[facility] Start: 12-19-2021 End: 12-20-[address] MAGO FREEDMAN . Facility:[facility] Start: 12-12-2021 End: 12-13-[address] MAGO FREEDMAN . Facility:[facility] Start: 12-03-2021 End: 12-04-[address] ORVILLE ACUÑA Facility:[facility] Start: 12-02-2021 End: 12-02-[address] [...] Sabina Linda Dilation of urethra Sabina Herbert sweeney Plan of Treatment Date Care Activity Detail Author Start: 09-06-2024 End: 09-06-2024 Patient encounter procedure 09/06/2024 10:15 AM EDT Procedure Visit [facility] [address] [place] [phone] Capo Acuña, DPM [address] [place] [address] [facility] Start: 07-03-2024 End: 07-03-2024 Patient encounter procedure 07/03/2024 10:15 AM EDT Procedure Visit [facility] [address] [place] [phone] Capo Acuña, DPM [address] [place] [address] [facility] Start: 04-27-2024 End: 04-27-2024 Patient encounter procedure 04/27/2024 10:45 AM EST Procedure Visit [facility] [address] [place] [phone] Capo Acuña, DPM [address] [place] [address] [facility] Start: 02-23-2024 End: 02-23-2024 Patient encounter procedure 02/23/2024 9:15 AM EST Procedure Visit [facility] [address] [place] [phone] Capo Acuña, DPM [address] [place] [address] Arrived [facility] Comment on above: Arrived Start: 12-19-2023 Influenza vaccination Influenza Vacc ine (#1) [facility] Immunizations Immunization Date Immunization Notes Care Provider Fa cility 03-16-2023 SARS-CoV-2 mRNA (tozinameran 5y-11y) vaccine Sabina Linda [facility] Comment on above: Result Comment: covi d 19 vishal-sucrose 02-26-2023 influenza virus vaccine, unspecified formulation Capo Acuña DPM Work Phone: [facility] 02-23-2022 SARS-CoV-2 (COVID-19 ) [id number] Sabina Linda [facility] 02-10-2022 influenza virus vaccine, unspecified formulation Sabina Linda [facility] 11-12-2021 SARS-CoV-2 mRNA (ecoymiaugxn-qalb-ihanb se) vaccine Sabina Linda [facility] 01-23-2021 SARS-CoV-2 (COVID-19 ) mRNA BNT-162b2 vax Sabina Linda [facility] Comment on above: Result Comment: 2022: [id number] 06-12-2020 SARS-CoV-2 (COVID-19 ) mRNA BNT-162b2 vax Sabina Linda [facility] Comment on above: Result Comment: 2022: [id number] 05-22-2020 SARS-CoV-2 (COVID-19 ) mRNA BNT-162b2 vax Sabina Linda [facility] Comment on above: Result Comment: 2022: [id number] 01-26-2020 influenza virus vaccine, unspecified formulation Sbaina Linda [facility] 04-19-2019 pneumococcal conjuga te vaccine, 13 valent Sabina Linda [facility] 02-23-2019 influenza virus vaccine, unspecified formulation Sabina Linda [facility] 05-25-2018 pneumococcal polysaccharide vaccine, 23 valent Sabina Linda [facility] 02-15-2018 influenza virus vaccine, unspecified formulation Sabina Linda [facility] 02-24-2017 influenza virus vaccine, unspecified formulation Sabina Linda [facility] 03-06-2016 pneumococcal conjuga te vaccine, 13 valent Sabina Linda [facility] 02-20-2016 influenza virus vaccine, unspecified formulation Sabina Linda [facility] 02-20-2014 influenza virus vaccine, unspecified formulation Sabina Linda [facility] 02-22-2013 influenza virus vaccine, unspecified formulation Sabina Linda [facility] 03-06-2010 influenza virus vaccine, unspecified formulation Sabina Linda [facility] 02-05-2009 influenza, whole Sabina Linda [facility] NEGATED: Highlighted row has not occurred!07-01-2021 influenza virus vaccine, unspecified formulation Sabina Linda [facility] Payers Date Payer Category Payer Private Health Insurance [employer] [id number] 2020 Unknown 2007 Medicare 1959 Medicare [id number] 1959 Unknown [id number] 1942 Unknown [id number] 2.16.840.1.317085.3.579.2. 593 1942 Unknown [id number] 2.16.840.1.560633.3.579.2. 593 1942 Unknown [id number] 2.16.840.1.613210.3.579.2. 593 1942 Unknown [id number] 2.16.840.1.338814.3.579.2. 593 1942 Unknown [id number] 2.16.840.1.195493.3.579.2. 593 1942 Unknown [id number] 2.16.840.1.654248.3.579.2. 593 1942 Unknown [id number] 2.16.840.1.991418.3.579.2. 593 1942 Unknown [id number] 2.16.840.1.832326.3.579.2. 593 1942 Unknown [id number] 2.16.840.1.874736.3.579.2. 593 1942 Unknown [id number] 2.16.840.1.972364.3.579.2. 593 1942 Unknown [id number] 2.16.840.1.096659.3.579.2. 196 1942 Unknown [id number] 2.16.840.1.947571.3.579.2. 196 1942 Unknown [id number] 2.16.840.1.965720.3.579.2. 125 1942 Unknown [id number] 2.16.840.1.244420.3.579.2. 1258 1942 Unknown [id number] 2.16.840.1.826075.3.579.2. 1258 1942 Unknown [id number] 2.16.840.1.598623.3.579.2. 1258 1942 Unknown [id number] 2.16.840.1.983298.3.579.2. 1258 1942 Unknown [id number] 2.16.840.1.803266.3.579.2. 1258 1942 Unknown [id number] 2.16.840.1.535687.3.579.2. 1942 Unknown [id number] 2.16.840.1.827620.3.579.2. 1942 Unknown [id number] 2.16.840.1.538060.3.579.2. 1942 Unknown [id number] 2.16.840.1.375455.3.579.2 1942 Unknown [id number] 2.16.840.1.044838.3.579.2. 1942 Unknown [id number] 2.16.840.1.597254.3.579.2 1942 Unknown [id number] 2.16.840.1.890938.3.579.2. 72 1942 Unknown [id number] 2.16.840.1.374979.3.579.2 1942 Unknown [id number] 2.16.840.1.372580.3.579.2. 72 1942 Unknown [id number] 2.16.840.1.332975.3.579.2 72 1942 Unknown [id number] 2.16.840.1.818645.3.579.2. 727 Social History Date Type Detail Facility Start: 02-02-2023 End: 02-24-2024 Tobacco smoking status Never smoked tobacco (finding) [facility] Comment on above: never Tobacco smoking status Never [facility] Comment on above: never Start: 12-22-2023 End: 02-23-2024 Sex Assigned At Female [facility] [place] Start: 11-03-2022 Tobacco use and exposure Smokeless tobacco non-user [facility] Start: 12-22-2023 End: 02-23-2024 Alcoholic beverage intake Lifetime non-drinker (finding) [facility] Start: 12-22-2023 End: 02-23-2024 History of Social function [facility] Start: 01-13-2023 Alcohol Comment caffeine intak e: 2-3 cups per day coffee,chocolate [facility] Start: 1940 Sex assigned at Not on file [facility] Medical Equipment Procedure Code Equipment Code Equipment Origin al Text Equipment Identifier Dates CATARACT EXTRACT ION W/ INTRAOCULAR LENS Fredy Moseley DO 04/30/20 Non Biological Eye L {[id number] [facility] Start: 04-30-2020 CATARACT EXTRACT ION W/ INTRAOCULAR LENS Fredy Moseley DO 05/14/20 Non Biological Eye R {01}[id number] [facility] Start: 05-14-2020 Clinical Notes 08-20-2021 to 02-23-2024 Capo Acuña DPM - 02/23/2024 9:15 AM EST Note Date & Type Note Facility 02-23-2024 History of Present illness Narrative Images from the original note were not included. History of Present Illness Diabetic/Routine Nail Care: Patient presents in office today for non diabetic nail care. Patient has no pain to the toenails however does have pain to the calluses of her feet. Location: nails on bilateral feet. Severity of symptoms: mild. Onset: gradual. Status: no change. Context: hard to trim, hard to reach. NAILS: thickened, discolored, pain. Relieved by: debridement, filing down nails, clipping nails. History of ulcers/wounds: no. PCP: Ivelisse Guillory MD Date of Last visit 12/23/23 Aggravated by: shoe gear, pressure. Risk factors: curvature of nails. Allergies No Known Drug Allergy: Allergy Examination General Examination: GENERAL EXAMINATION: awake, aware of surroundings, in no acute distress. FOOT EXAM: Date of Last Foot Exam 02/23/24 Vascular: DORSALIS PEDIS PULSE: 2/4, bilaterally. POSTERIOR TIBIAL PULSE: 0/4, bilaterally. TEMPERATURE GRADIENT:warm to cool. EDEMA: none. INSPECTION: edema to the left 5th digit. CAPILLARY FILLING TIME(sec): capillary fill intact bilateral digits less than 3 secs. Neurologic: VIBRATORY: normal. SEMMES-MICHAEL 5.07 MONOFILAMENT: normal. Dermatologic: HYPERKERATOSIS:Location: Multiple small nucleated hyperkeratosis is noted to the plantar aspect of the foot bilateral. Lesions are located to the sub-hallux IPJ left, sub-third MPJ left, for lesions at the plantar and lateral aspect of the fifth MPJ left, PIPJ of the left fifth digit, sub-second MPJ right, medial IPJ of the hallux right and sub-fifth MPJ right. NAIL PATHOLOGY:digits 1-5 bilateral are intact. There is thickness, discoloration, crumbly appearance and dystrophy to the lateral border of the left hallux nail. SKIN PATHOLOGY:Skin is somewhat thin with fat pad atrophy across the ball the foot. Orthopedic: FOOT MORPHOLOGY:normal. JOINT RANGE OF MOTION:Normal. DEFORMITIES:Plantar metatarsal head prominence with semirigid contracted digits 2 through 5 bilateral. PAIN ELICITED WITH PALPATION OFHyperkeratotic lesions to the plantar hallux left and sub-third MPJ left. MUSCLE STRENGTH5/5 for all pedal groups tested. Assessments 1. Foot pain, left - M79.672 (Primary) 2. Dermatophytosis of nail - B35.1 3. Foot pain, right - M79.671 4. Porokeratosis - Q82.8 5. Corns and callosities - L84 6. Hammertoe, right - M20.41 7. Hammertoe, left - M20.42 Treatment 1.Dermatophytosis of nail Notes: 1. Nails were debrided in length and thickness by manual and mechanical means. 2. Advised patient of proper foot care to prevent any future complications. 3. Discussed with the patient the further options for treatment for the fungus on the left hallux nail. Discussed topicals, but will keep her on a list to get a sample of Jublia/Kerydin 4. RTC: 9-12 weeks or as needed if problems arise. 2.Corns and callosities Notes: 1. Hyperkeratosis/porokeratosis as above noted was debrided. 2. Instructed patient on use of aperture pads or Silipos padding/toe spacers to prevent rubbing and continued development of the hyperkeratosis. 3. Also discussed use of moisturizing creams for overall increased hydration to the skin. 4. Discussed continued use of proper foot gear to avoid excess pressure over the callous site. documented in this encounter [facility] 02-15-2024 Note Patient Education Immunology Allergic Rhinitis, [...] and dust often. General instructions ??? Take [id number] and prescription medicines only as told by your doctor. ??? Drink enough fluid to keep your pee pale yellow. Where to find more information ??? [place] [employer]: aaaai.org [...] provider. Document Revised: 12/14/2022 Document Reviewed: 12/14/2022 URBANARA Patient Education ? 2023 WriteOn. [facility] 12-03-2023 Note Patient Education Cardiovascular Hypertension, Adult [...] wine (148 mL), (more content not included)... [facility] 09-24-2021 Note OPERATIVE NOTE OPERATION DATE: 09/24/2021 [...] the pathology report. CC: Mago Freedman M.D. [facility] Signed and Approved by: DR LAMAR SEXTON . 09/25/2021 12:58:00 [facility] 08-20-2021 Note OPERATIVE NOTE OPERATION DATE: 08/20/2021 [...] after different prep. CC: Mago Freedman M.D. [facility] Signed and Approved by: DR LAMAR SEXTON . 08/21/2021 07:27:00 [facility] Evaluation + Plan note Future Appointments Appointment Date:03/16/2023 09:00:00 AM Scheduled Provider:Sabina Ruth Location:[facility] ([facility] Appointment Type:FM Open Appointment Date:12/03/2023 02:00:00 PM Scheduled Provider: Location:[facility] ([facility] Appointment Type: Medicare Wellness Subsequent [facility] Evaluation + Plan note Future Appointments Appointment Date:11/25/2023 01:00:00 PM Scheduled Provider: Location:[facility] Appointment Type: Medicare Wellness Subsequent Appointment Date:02/24/2024 10:00:00 AM Scheduled Provider:Sabina Ruth Location:[facility] Appointment Type: Open [facility] Evaluation + Plan note Future Appointments Appointment Date:12/07/2024 11:00:00 AM Scheduled Provider: Location:[facility] Appointment Type: Medicare Wellness Subsequent [facility] Evaluation note Diagnosis Onychomycosis- Primary Dermatophytosis of nail Corns and callosities Other specified peripheral vascular diseases (CMS/HCC) Pain in both feet [facility] N[facility]ative No data available for this section [facility] No data available for this section [facility] No data available for this section [facility] Summary Purpose Family History No Family History Records Found No data available for this section No Family History Records Found No data available for this section No Family History Records FoundNo Family History Records Found No data available for this section No Family History Records FoundNo Family History Records Found Advance Directives No Advanced Directives Records FoundNo Advanced Directives Records FoundNo Advanced Directives Records FoundNo Advanced Directives Records FoundNo Advanced Directives Records FoundNo Advanced Directives Records Found Additional Source Comments INFORMATION SOURCE (unrecogn ized section and content) DATE CREATED AUTHOR 07/25/2022 [facility] DATE CREATED AUTHOR AUTHOR'S ORGANIZ ATION 05/03/2023 [facility] DATE CREATED AUTHOR AUTHOR'S ORGANIZ ATION 02/24/2024 [facility] DATE CREATED AUTHOR AUTHOR'S ORGANIZ ATION 02/25/2024 [facility] DATE CREATED AUTHOR AUTHOR'S ORGANIZ ATION 02/26/2024 [facility] DATE CREATED AUTHOR AUTHOR'S ORGANIZ ATION 03/04/2024 [facility] Patient Care team informatio n (unrecognized section and content) Reading Professor Relationship Specialty Start Date End Date Awais Guillory MD [address] [place] [address] PCP - General Family Medicine 01/27/23 Reading Professor Relationship Specialty Start Date End Date Awais Guillory MD [address] [place] [address] PCP - General Family Medicine 01/27/23 FOR RECORDS PERTAINING TO PATIENTS WHO ARE [...] BE BASED ON THE PRIMARY CLINICAL RECORDS. [employer] [facility]. provides no warranty or guarantee of the accuracy or completeness of information in this document.
== END 2024-03-13 08:29 | disposition home or self-care (01) ==
LOC: EC 08:29
PROVIDERS: PCP Nurse Practitioner; Visit Provider Orthopaedic Surgery
DX: S52.592D Other fractures of lower end of left radius, subsequent encounter for closed fracture with routine healing (principal)
CPT/HCPCS: 73110

== ENCOUNTER 2024-04-24 09:54 | Outpatient (OUT) | payer MEDICARE, OTHER, SELFPAY ==
--- NOTE | 2024-04-24 10:00 | CA_ITS ---
Patient Name: NIMCO PRESTON MR#: [id number] : 1940 Exam Date: 04/24/2024 Ordering Doctor: DR CARLOS MANUEL MONTES M.D. ECHOCARDIOGRAM REPORT PROCEDURE: CA ECHO DOPPLER COMPLETE INDICATIONS: Dyspnea on exertion, fatigue, hypertension COMPARISON: None. DESCRIPTION: COMPLETE ECHOCARDIOGRAM Real-time transthoracic echocardiography with 2D, M-mode, spectral and color flow Doppler performed. QUALITY: Technical quality was good. LEFT VENTRICLE: Normal chamber size. Mild concentric left ventricular hypertrophy. LV EF: Normal left ventricular ejection fraction 60 to 65% without wall motion abnormalities DIASTOLIC: Indeterminate diastolic dysfunction. ATRIAL SEPTUM: LEFT ATRIUM: Severe dilatation. RIGHT ATRIUM: Normal chamber size. RIGHT VENTRICLE: Normal chamber size. Normal right ventricular systolic function. TRICUSPID VALVE: Normal mobility and thickness. No stenosis with trivial regurgitation. Doppler studies reveal moderately elevated right sided pressures.RVSP 46 mmHg MITRAL VALVE: Normal mobility and thickness. No evidence of mitral valve stenosis. There is no mitral annular calcification. Trivial mitral regurgitation. AORTIC VALVE: Normal trileaflet appearance. No visible sclerosis. Normal leaflet mobility. No evidence of aortic valve stenosis. Mild to moderate aortic regurgitation. AORTIC ROOT: Normal diameter and appearance. Ascending aorta is normal in size PULMONIC VALVE: Normal thickness and mobility. No stenosis. Mild regurgitation. PERICARDIUM: No evidence of pericardial effusion. IVC: Not well visualized. PLEURA: CONCLUSION: Mild concentric left ventricle hypertrophy Normal left ventricular function without wall motion abnormalities, ejection fraction 60 to 65% Normal right ventricle size and systolic function Mild to moderate aortic insufficiency Trace tricuspid regurgitation and trace mitral regurgitation Moderate pulmonary hypertension, RVSP 46 mmHg Severely dilated left atrium Adult Echocardiography Procedure Report Left Ventricle LVEDD (3.7 - 5.6 cm): 5.02 cm LVESD (2.2 - 4.0 cm): 3.49 cm LVIVS thickness (0.6 - 1.2 cm): 1.42 cm LVPW thickness (0.5 - 1.0 cm): 1.26 cm e': 0.11 m/s E - e': 4.77 LVOT Max Gradient: 2.16 mm[Hg] LVOT Area (cm2): 0.74 m/s Peak Velocity (LVOT): 0.74 m/s Mean Velocity (LVOT): 0.47 m/s LVOT Diameter 2.30 cm Left Ventricular Ejection Fraction: Left Atrium LA Volume Index (2D A2C): 50.71 ml/m2 Left Atrium Systolic Dimension: 4.64 cm Mitral Valve MV E to A Ratio: 0.85 MV Max Gradient: MV Mean Gradient: Mitral Valve A-Wave Peak Velocity: 0.61 m/s Mitral Valve E-Wave Peak Velocity: 0.52 m/s Cardiovascular Orifice Area: Right Ventricle RV Internal Diastolic Dimension: Aorta AO Root Diam: 3.50 cm Ascending Ao Diam: 2.66 cm Aortic Valve AoV Area (Peak Vic): 2.30 cm2, 2.30 cm2 AoV Area (VTI): 2.81 cm2, 2.81 cm2 Deceleration [place]: 2.86 m/s2 Pressure Half-Time: 435.64 ms Peak Velocity(Antegrade Flow): 1.32 m/s Peak Gradient(Antegrade Flow): 6.98 mm[Hg] Mean Velocity(Antegrade Flow): 0.86 m/s Mean Gradient(Antegrade Flow): 3.45 mm[Hg] Velocity Time Integral: 28.29 cm Tricuspid Valve Peak Velocity (Regurgitant Flow): 3.07 m/s Peak Velocity: Pulmonic Valve Mean Gradient: 1.23 mm[Hg] Mean Velocity: 0.51 m/s Peak Velocity: 0.82 m/s, 0.70 m/s Peak Gradient: 1.98 mm[Hg], 2.68 mm[Hg] Right Atrium Right Atrium Systolic Pressure: 52.44 ml, 52.44 ml Dictated by: Randolph Woodard MD on 04/24/2024 at 17:48 Approved by: Randolph Woodard MD on 04/24/2024 at 17:57
== END 2024-04-24 09:55 | disposition home or self-care (01) ==
LOC: CARD 09:55
PROVIDERS: PCP Nurse Practitioner; Visit Provider Internal Medicine Interventional Cardiology
DX: R06.09 Other forms of dyspnea (principal); R53.83 Other fatigue
CPT/HCPCS: 93306

== ENCOUNTER 2024-04-28 07:01 | Outpatient (OUT) | payer MEDICARE, OTHER, SELFPAY ==
--- NOTE | 2024-04-28 | NM_ITS ---
Patient Name: NIMCO PRESTON MR#: [id number] : 1940 Exam Date: 04/28/2024 Ordering Doctor: DR Ian Sims M.D. RADIOLOGY REPORT PROCEDURE: NM NOAH PERF SPECT REST STR COMPARISON: None. INDICATIONS: FATIGUE, SHORTNESS OF BREATH TECHNIQUE: Exam Description: Stress/Rest one day protocol gated SPECT Rest Imagin.3 mCi Tc-99m Cardiolite IV on 04/28/2023 Stress Imaging 30.6 mCi Tc-99m Cardiolite IV on 04/28/2023 Exercise Protocol: Kyree Heart Rate (bpm): Rest: 71 Max: 125 PMHR: 89 Blood Pressure: Rest: 162/88 Max: / Exercise Time: Minutes: 5 Seconds: 15 Stage Reached: Stage: 2 Mets 7.0 Symptoms: Rest and peak stress ECG findings were pending and the exercise portion of the study was pending per attending physician Dr. MCKEON . For more details please see separate cardiac stress test report. FINDINGS: QUALITY OF STUDY: Excellent. PERFUSION DEFECT: None. LOCATION: N/A SIZE: N/A. SEVERITY: N/A. TYPE: N/A. WALL MOTION: Normal. LV SIZE: Normal. 98 mL. TID / TCD: None; 0.9 LVEF: Normal. Calculated EF 75%. SUMMARY: Myocardial perfusion imaging study is NORMAL. CONCLUSION: 1. Normal nuclear medicine myocardial perfusion scan. Dictated by: Domingo Blandon M.D. on 04/28/2024 at 15:41 Approved by: Domingo Blandon M.D. on 04/28/2024 at 15:44
--- NOTE | 2024-04-28 07:01 | PCN_ITS ---
CARDIAC STRESS TEST ? Requesting Physician:? Ian Sims M.D. ? Procedure Date:? 04/28/2024 ? PERFORMING PROVIDER:? Kristie Suresh M.D. ? INDICATION:? Dyspnea, fatigue. ? STRESS TEST PROTOCOL:? Exercise stress test, Kyree protocol, with nuclear myocardial perfusion imaging. ? Resting heart rate:? 71 beats per minute. Max heart rate:? 125 beats per minute. Performance peak maximal heart rate:? 89% Resting blood pressure:? 163/88 Maximum blood pressure:? 202/90 Exercise time:? 5 minutes 15 seconds Stage reached:? 2 METS reached:? 7 ? CONCLUSION: 1.? Resting EKG demonstrates normal sinus rhythm. 2.? There were no definite EKG changes meeting the criteria for ischemia. 3.? Patient with PVCs seen in single and triplet form. 4.? Olivares treadmill score is 5, which portends low risk for angiographically significant coronary artery disease.5.? Please refer to separately interpreted and reported nuclear myocardial perfusion imaging. [facility]
--- OUTSIDE RECORDS SUMMARY | 2024-04-28 07:04 | XMS_ITS | CCD ---
Author Organization [facility] Care Team Providers Care Manager Dental Name Role Phone CORINA ., DR BRITTANY Oh Consulting Unavailable FREEDMAN ., DR BRITTANY Oh Attending Unavailable FREEDMAN ., DR BRITTANY Oh Admitting Unavailable FREEDMAN ., DR BRITTANY Oh Primary Care Unavailable JUAQUIN, DR BERNARD Lopez Consulting Unavailable FREEDMAN ., DR BRITTANY Oh Admitting Unavailable FREEDMAN ., DR BRITTANY Oh Primary Care Unavailable FREEDMAN ., DR BRITTANY Oh Attending Unavailable ROZINA, DR ORVILLE Beck Admitting Unavailable ROZINA, DR ORVILLE Beck Consulting Unavailable FREEDMAN ., DR BRITTANY Oh Primary Care Unavailable ROZINA, DR ORVILLE Beck Attending Unavailable KENY LIZ Consulting Unavailable NILL ., DR NEWTON Attending Unavailable NILL ., DR NEWTON Admitting Unavailable NILL ., DR NEWTON Consulting Unavailable FREEDMAN ., DR BRITTANY Oh Primary Care Unavailable ALLAN LEVI Consulting Unavailable RONEY WATKINS Consulting Unavailable FREEDMAN ., DR BRITTANY Oh Primary Care Unavailable NILL ., DR NEWTON Attending Unavailable NILL ., DR NEWTON Admitting Unavailable NILL ., DR NEWTON Consulting Unavailable AGUBOSIM, AWAIS Consulting Unavailable MAMIE ÁLVAREZ Consulting Unavailable NILL ., DR NEWTON Admitting Unavailable NILL ., DR NEWTON Attending Unavailable FREEDMAN ., DR BRITTANY Oh Primary Care Unavailable FREEDMAN ., DR BRITTANY Oh Attending Unavailable FREEDMAN ., DR BRITTANY Oh Primary Care Unavailable FREEDMAN ., DR BRITTANY Oh Consulting Unavailable FREEDMAN ., DR BRITTANY Oh Admitting Unavailable FREEDMAN ., DR BRITTANY Oh Consulting Unavailable FREEDMAN ., DR BRITTANY Oh Attending Unavailable FREEDMAN ., DR BRITTANY Oh Primary Care Unavailable FREEDMAN ., DR BRITTANY Oh Admitting Unavailable JUAQUIN, DR BERNARD Lopez Consulting Unavailable FREEDMAN ., DR BRITTANY Oh Consulting Unavailable FREEDMAN ., DR BRITTAYN Oh Attending Unavailable FREEDMAN ., DR BRITTANY Oh Admitting Unavailable FREEDMAN ., DR BRITTANY Oh Primary Care Unavailable FREEDMAN ., DR BRITTANY Oh Consulting Unavailable FREEDMAN ., DR BRITTANY Oh Attending Unavailable FREEDMAN ., DR BRITTANY Oh Admitting Unavailable FREEDMAN ., DR BRITTANY Oh Primary Care Unavailable Linda, Sabina Rafael Primary Care Physician CAPO ACUÑA Attending Unavailable CAPO ACUÑA Attending Unavailable ROZINA, CAPO Woods Attending Unavailable ROZINA, CAPO H Attending Unavailable ROZINA, CAPO H Attending Unavailable ROZINA, CAPO H Attending Unavailable Awais Guillory MD Primary Care Provider MONICA RODRÍGUEZ Attending Unavailable Linda, RATING CLERK Sabina L Attending Unavailable Linda, RATING CLERK Sabina L Attending Unavailable Linda, RATING CLERK Sabina L Attending Unavailable Linda, RATING CLERK Sabina L Attending Unavailable Linda, RATING CLERK Sabina L Attending Unavailable Linda, RATING CLERK Sabina L Attending Unavailable Linda, RATING CLERK Sabina L Attending Unavailable Linda, RATING CLERK Sabina L Attending Unavailable Linda, RATING CLERK Sabina L Attending Unavailable Linda, RATING CLERK Sabina L Admitting Unavailable Linda, RATING CLERK Sabina L Attending Unavailable Linda, RATING CLERK Sabina L Admitting Unavailable Linda, Sabina L Admitting Unavailable Linda, Sabina L Attending Unavailable Awais Guillory MD Primary Care Provider IAN SIMS Attending Unavailable Yaneli MOJICA, Beryl Cole Attending Unavailab Brittany Sanchez MD Primary Care Unavaildillon oh Allergies Allergy Classification Reported Allergen(s) Allergy Type Date of Onset Reaction(s) Facility (2 sources) Amitriptyline; Translations: [amitriptyline] Drug Allergy [facility] (1 source) Cephalexin Drug Allergy 2 [facility] (3 sources) Amitriptyline; Translations: [amitriptyline] Drug Allergy Unknown (qualifier value) [facility] [place] (5 sources) Cefuroxime; Translations: [cefuroxime] Drug Allergy 4 Syncope and collapse (disorder), Itching (finding) [facility] (2 sources) No Known Medication Allergies; Translations: [No Known Medication Allergies] Propensity to adverse reactions (disorder) [facility] Repository Medications Current Medications Medication Drug Class(es) Dates Sig (Normalized) Sig (Original) acetaminophen 300 mg / butalbital 50 mg oral tablet (4 sources) Barbiturate take 1 tablet by mouth [...] Oral, q4hr Headache, 30 tab(s), Refill(s) 0, [facility]/pharmacy #[id number], 166, cm, 03/16/23 9:10:00 EST, Height/Length Dosing, 85.6, kg, 03/16/23 9:10:00 EST, Weight Dosing Start Date: 03/16/23 Status: Ordered alendronic acid 70 mg oral tablet (7 sources) Bisphosphonate Start: 02-10-2024 alendronate 70 mg Tab See Instructions, TAKE 1 TABLET ONCE EVERY 7 DAYS, # 12 tab(s), Refills(s) 0, Pharmacy: [id number], 167.5, cm, 12/24/23 10:08:00 EDT, Height/Length Dosing, 83.2, kg, 12/24/23 10:08:00 EDT, Weight Dosing Start Date: 02/10/24 Status: Ordered Start: 08-24-2023 alendronate 70 mg Tab 70 mg = 1 tab(s), Oral, q7day, # 12 tab(s), Refills(s) 0, Pharmacy: [facility]/pharmacy #[id number], 166, cm, 08/24/23 8:56:00 EDT, Height/Length [...] AFTER, # 6 caplet(s), Refills(s) 1, [id number], cm, 08/24/23 8:56:00 EDT, Height/Length Dosing, 84, kg, 08/24/23 8:56:00 EDT, Weight Dosing Start Date: 08/24/23 Status: Ordered azithromycin 250 mg oral tablet (1 source) Macrolide Antimicrobial Start: 02-24-2024 End: 02-29-2024 azithromycin 250 mg Tab = 1 packet(s), Oral, As Directed, as directed on package labeling, X 5 day(s), # 6 tab(s), Refills(s) 0, [id number], 167.5, cm, 02/24/24 [...] Ordered colestipol hydrochloride 1000 mg oral tablet (7 sources) Bile Acid Sequestrant Start: 10-26-2023 take 1 tablet by mouth once daily colestipol 1 g Tab See Instructions, TAKE 1 TABLET BY MOUTH EVERY DAY, # 90 tab(s), Refills(s) 1, Pharmacy: [facility] [address], 166, cm, 08/24/23 8:56:00 EDT, Height/Length Dosing, 84, kg, 08/24/23 8:56:00 EDT, Weight Dosing Start Date: 10/26/23 Status: Ordered Start: 04-27-2023 take 1 tablet by eric th once daily Colestid 1 g Tab 1 gm = 1 tab(s), Oral, Daily, # 90 tab(s), Refills(s) 1, [id number] 166, cm, 03/16/23 [...] DAY, # 90 cap(s), Refills(s) 3, Pharmacy: [id number], 167.5, cm, 12/24/23 10:08:00 EDT, Height/Length Dosing, 83.2, kg, 12/24/23 10:08:00 EDT, Weight Dosing Start Date: 01/18/24 Status: Ordered Start: 02-26-2023 take 1 capsule by mo [facility] once daily hydrochlorothiazide 12.5 mg Cap 12.5 mg = 1 cap(s), Oral, Daily, # 90 cap(s), Refills(s) 3, Pharmacy: [facility]/pharmacy #[id number], 166, cm, 02/02/23 8:45:00 EDT, Height/Length Dosing, 85, kg, 02/02/23 8:45:00 EDT, Weight Dosing Start Date: 02/26/23 Status: Ordered Start: 02-02-2023 take 1 capsule by mo uth once daily hydrochlorothiazide 12.5 mg Cap 12.5 mg = 1 cap(s), Oral, Daily, # 30 cap(s), Refills(s) 2, Pharmacy: [id number], 166, cm, 02/02/23 8:45:00 EDT, Height/Length Dosing, 85, kg, 02/02/23 8:45:00 EDT, Weight Dosing Start Date: 02/02/23 Status: Ordered losartan potassium 25 mg oral tablet (7 sources) Angiotensin 2 Receptor Peter Start: 02-23-2024 take 1 tablet by mouth twice daily losartan 25 mg Tab 25 mg = 1 tab(s), Oral, BID, # 180 tab(s), Refills(s) 3, Pharmacy: [facility]/pharmacy #[id number], 167.5, cm, 02/15/24 11:55:00 EDT, Height/Length Dosing, 84.4, kg, 02/15/24 11:55:00 EDT, Weight Dosing Start Date: 02/23/24 Status: Ordered Start: 12-08-2022 End: 05-03-2023 take 1 tablet by mouth twice daily losartan 25 mg Tab 25 mg = 1 tab(s), Oral, BID, # 180 tab(s), Refills(s) 3, Pharmacy: [facility]/pharmacy #[id number], 166, cm, 03/16/23 9:10:00 EST, Height/Length Dosing, 85.6, kg, 03/16/23 9:10:00 EST, Weight Dosing Start Date: 05/25/23 Status: Ordered methylPREDNISolone 4 mg oral tablet (1 source) Corticosteroid Start: 02-24-2024 End: 03-01-2024 Medrol 4 mg Tab = 1 packet(s), Oral, As Directed, as directed on package labeling, X 6 day(s), # 21 tab(s), Refills(s) 0, Pharmacy: [facility]/pharmacy #[id number], 167.5, cm, 02/24/24 10:05:00 EST, Height/Length [...] DAY, # 90 tab(s), Refills(s) 1, Pharmacy: [id number], 167.5, cm, 12/24/23 10:08:00 EDT, Height/Length Dosing, 83.2, kg, 12/24/23 10:08:00 EDT, Weight Dosing Start Date: 01/18/24 Status: Ordered Start: 02-02-2023 take 1 tablet by eric th once daily Klor-Con M20 oral tablet, extended release 20 mEq = 1 tab(s), Oral, Daily, # 90 tab(s), Refills(s) 1, [id number] 166, cm, 08/24/23 [...] Sig (Original) albuterol 0.83 mg/ml inhalation solution (8 sources) beta2-Adrenergic Agonist Start: 02-24-2024 albuterol 0.083% Inh Yaima 3 mL See Instructions, 30 EA, Refill(s) 1, INHALE CONTENTS OF 1 VIAL VIA NEBULIZER EVERY 4 HOURS*J45.909*, [facility]/pharmacy #[id number], 167.5, cm, 02/24/24 10:05:00 EST, Height/Length [...] Date Documented Date Episodic/Chronic Acquired foot deformities (4 sources) Acquired hammer toe of left foot; Translations: [Other hammer toe(s) (acquired), left foot] Onset: 01-28-2001-27-2023 Chronic Acquired foot deformities (4 sources) Acquired hammer toe of right foot; [...] fatigue; Translations: [Fatigue] Onset: 12-13-19 Episodic Mycoses (2 sources) Onychomycosis; Translations: [Tinea unguium] 02-23-2024 Episodic Nonspecific chest pain (1 source) Chest pain 12-03-2023 Episodic Nutritional deficiencies (4 sources) Vitamin D deficiency, unspecified; Translations: [Vitamin D deficiency] Onset: 10-01-1904-07-2021 Chronic Osteoporosis (8 sources) Age-related osteoporosis without current pathological fracture; Translations: [Osteoporosis] Onset: 10-01-1904-07-2021 Chronic Other and unspecified benign neoplasm (3 sources) History of polyp of colon 04-08-2021 Episod ic Other circulatory disease (2 sources) Peripheral vascular disease; Translations: [Other specified peripheral vascular diseases] 02-23-2024 Chronic Other congenital anomalies (4 sources) Porokeratosis; Translations: [Other specified congenital malformations of skin] Onset: 01-28-2001-27-2023 Chronic Other connective tissue disease (1 source) Presence of right artificial knee joint; Translations: [PRESENCE RT ARTIFICIAL KNEE JOINT] Onset: 10-01-19 Chronic Other connective tissue disease (2 sources) Cramp in lower limb 08-24-2023 Episodic Other connective tissue disease (2 sources) Pain in both feet; Translations: [Pain in [...] disease (1 source) Dyspnea 12-03-2023 Episodic Other lower respiratory disease (2 sources) Other forms of dyspnea; Translations: [Other forms of dyspnea] Onset: 04-10-20 Episodic Other non-traumatic joint disorders (1 source) [...] than 30 12-03-2023 Episodic Other skin disorders (2 sources) Callosity; Translations: [Corns and callosities] 02-23-2024 Episodic [...] 09-30-2021 Episodic Other aftercare (1 source) Other skilled nursing (current) drug therapy; Translations: [OTH [facility] CURRENT DRUG THERAPY] Onset: 12-05-2021 Episodic Other [...] Name Value Interpretation Reference Range Facil ity Office Visiton 04-10-2024 Follow-up visit [id number] Nori Quezada 1940 F Date Provider Department Center 04/10/2024 271-IAN SIMS CARD [facility] Family History Problem Relation Age of Onset No Known Problems Mother No Known Problems Father Family Status - Relation Status Age at Mother Father Level of Service:[id number] [place] OFFICE/OUTPATIENT NEW MODERATE MDM 45 MINUTES Normal [facility] Reminderson 02-25-2024 Reminders Reminders - From: Sabina Ruth To: [facility] - Clinical; Sent: 02/25/2024 08:46:06 EST Show [...] - 5.60) - From: Chely Herzog M.A. (B - Clinical) To: Sabina Ruth; Sent: 02/25/2024 09:25:04 EST Show up: 02/25/2024 09:23:00 EST Subject: RE: Ambulatory Reminder verbalizes understanding Normal [facility] Ambulatory Visit Summaryon 1 04-25-2023 Ambulatory Visit Summary Ambulatory Visit Summary NORI QUEZADA :1940 Visit Date:02/24/2024 Ambulatory Visit Instructions Your Diagnosis [...] Follow-Up Appointments 2024 11:00 AM EDT Where: [id number] [place] [address]- Medications What How Much When Why Instructions New azithromycin (azithromycin 250 mg Tab) 1 Packets By Mouth As Directed HTN (hypertension) Hypercholesteremia Duration: 5 Days as directed on package labeling Pickup at [facility]/pharmacy #[id number] New methylPREDNISolone (Medrol 4 mg Tab) 1 Packets By Mouth As Directed HTN (hypertension) Hypercholesteremia Duration: 6 Days as directed on package labeling Pickup at [facility]/pharmacy #6177 Unchanged albuterol Nebulized inhalation (aerosol) Every [...] TABLET BY MOUTH EVERY DAY Pharmacy Information [facility]/pharmacy #[id number]: [address], [place] [phone] Allergies cefuroxime (Syncope and collapse, Itch) amitriptyline [...] for choosing us for your care. Normal [facility] CHEMISTRYOrdered By: SYSTEM SYSTEM on 02-24-2024 Cholesterol [...] day(s), # 6 tab(s), Refills(s) 0, Pharmacy: [facility]/pharmacy #[id number], 167.5, cm, 02/24/24 10:05:00 EST, Height/Length Dosing, 83.8, kg, 02/24/24 10:05:00 EST, Weight Dosing losartan, 25 mg = 1 tab(s), Oral, BID, # 180 tab(s), Refills(s) 3, Pharmacy: [facility]/pharmacy #[id number], 166, cm, 03/16/23 9:10:00 EST, Height/Length Dosing, 85.6, kg, 03/16/23 9:10:00 EST, Weight Dosing losartan, 25 mg = 1 tab(s), Oral, BID, # 180 tab(s), Refills(s) 3, Pharmacy: [facility]/pharmacy #[id number], 167.5, cm, 02/15/24 11:55:00 EDT, Height/Length Dosing, 84.4, kg, 02/15/24 11:55:00 EDT, Weight Dosing methylPREDNISolone, = 1 packet(s), Oral, As Directed, as directed on package labeling, X 6 day(s), # 21 tab(s), Refills(s) 0, Pharmacy: [facility]/pharmacy #[id number], 167.5, cm, 02/24/24 10:05:00 EST, Height/Length Dosing, 83.8, kg, 02/24/24 10:05:00 EST, Weight Dosing Lipid Panel Thyroid Stimulating Hormone 2. Hypercholesteremia (E78.00: Pure hypercholesterolemia , unspecified) lipid panel in office today Ordered: azithromycin, = 1 packet(s), Oral, As Directed, as directed on package labeling, X 5 day(s), # 6 tab(s), Refills(s) 0, [id number] 167.5, cm, 02/24/24 10:05:00 EST, Height/Length Dosing, 83.8, kg, 02/24/24 10:05:00 EST, Weight Dosing methylPREDNISolone, = 1 packet(s), Oral, As Directed, as directed on package labeling, X 6 day(s), # 21 tab(s), Refills(s) 0, [id number], 167.5, cm, 02/24/24 [...] AFTER, # 6 caplet(s), Refills(s) 1, [id number], 166, cm, 08/24/23 [...] Oral, BID (more content not included)... Normal [facility] Comment on above: Result Comment: Elec tronically Signed By: Sabina Ruth\.br\Date and Time Signed: 02/24/24 10:38 EST Lipid Panelon 02-24-2024 Cholesterol [Mass/Vol] 166 mg/dL Normal 120-200 [facility] Comment on above: Performed By: #### 2 [id number] #### [facility] [address] [place] [address] Cholesterol in HDL [Mass/Vol] 55 mg/dL Invalid Interpretation Code [facility] Comment on above: Result Comment: '>= 60 LOW RISK' '<= 40 HIGH RISK' Performed By: #### 2 [id number] #### [facility] [address] [place] [address] Cholesterol in LDL [Mass/Vol] 92 mg/dL Normal <=129 [facility] Comment on above: Performed By: #### 2 [id number] #### [facility] [address] [place] [address] Cholesterol in VLDL [Mass/Vol] 20 mg/dL Normal 7-40 [facility] Comment on above: Performed By: #### 2 [id number] #### [facility] [address] [place] [address] Triglyceride [Mass/Vol] 102 mg/dL Normal <=149 [facility] Comment on above: Performed By: #### 2 [id number] #### [facility] [address] [place] [address] TSHon 02-24-2024 TSH Qn 1.56 m[IU]/L Normal 0.34-5.60 [facility] Comment on above: Performed By: #### 2 [id number] #### [facility] [address] [place] [address] Family Medicine Office/Clini c Noteon 02-15-2024 Family [...] with a non-smoker Ordered: Rapid COVID POC 16587 3. BMI 30.0-30.9,adult (Z68.30: Body mass index [...] at subsequent visits. Ordered: Rapid COVID POC 92446 4. 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 Ordered: Rapid COVID POC 10810 Follow-up No qualifying data available Patient Education Allergic Rhinitis, Adult, Sett-dn-Raob Problem List/Past Medical History Ongoing Allergic rhinitis, [...] Instructions Klor (more content not included)... Normal [facility] Comment on above: Result Comment: Elec tronically Signed By: MONICA RODRÍGUEZ CNP\.tato\Date and Time Signed: 02/15/24 13:18 EDT Ambulatory Visit Summaryon 0 12-24-2023 Ambulatory Visit Summary Ambulatory Visit Summary NORI QUEZADA :1940 Visit Date:12/24/2023 Ambulatory Visit Instructions Your [...] 10:00 AM EST With: Sabina Ruth Where: [address] [address] 2024 11:00 AM EDT With: Where: [address] [id number]- Medications What How Much When Why Instructions [...] for choosing us for your care. Normal [facility] Family Medicine Office/Clini c Noteon 12-24-2023 Family [...] SARS-CoV-2 mRNA (toz (more content not included)... [facility] Comment on above: Result Comment: Elec tronically Signed By: Sabina Ruth\.br\Date and Time Signed: 12/24/23 10:45 EDT Ambulatory Visit Summaryon 0 12-03-2023 Ambulatory Visit Summary Ambulatory Visit Summary NORI QUEZADA :1940 Visit Date:12/02/2023 Ambulatory Visit Instructions Your [...] 9:00 AM EDT With: Sabina Ruth Where: [address] [address]- 2023 10:00 AM EST With: Sabina Ruth Where: [address] [address]- 2024 11:00 AM EDT With: Where: [address] [address]- Medications What How Much When Why Instructions [...] BMI calculated? (more content not included)... Normal [facility] Ambulatory Visit Summary Ambulatory Visit Summary NORI QUEZADA :1940 Visit Date:12/03/2023 Ambulatory Visit Instructions Your [...] 10:00 AM EDT With: Sabina Ruth Where: [address] [address]- 2023 10:00 AM EST With: Sabina Ruth Where: [address] [address] 2024 11:00 AM EDT With: Where: [address] [id number]- Medications What How Much When Why Instructions [...] choosing us for your care. Normal [facility] Family Medicine Office/Clini c Noteon 12-03-2023 Family [...] of clutter to prevent tripping and/or falling. [place] Advance Directives reviewed. Documents are scanned into [...] PCP visit. Labs to be completed with [facility]. No concerns with bowel/ bladder. Colonoscopy last [...] of jovanni (more content not included)... Normal [facility] Comment on above: Result Comment: Elec tronically [...] referral to go to Dr. Rajput in [place], this is who her sees. patient originally thought she just pulled a muscle in her chest when pulling weeds. but with her having SOB and fatigue I feel she needs further work up by cardiology. Ordered: ECG 12 Lead Adult [facility] External Ambulatory Referral 2. Shortness of breath (R06.02: Shortness of breath) pt gets very short of breath on any exertion Ordered: ECG 12 Lead Adult [facility] External Ambulatory Referral 3. Fatigue (R53.83: Other fatigue) EKG, carotid artery u/s and chest x ray ordered Ordered: [facility] External Ambulatory Referral 4. Non-smoker (Z78.9: Other specified health status) continue not smoking Ordered: potassium chloride, 20 mEq = 1 tab(s), Oral, Daily, # 30 tab(s), Refills(s) 6, [id number], 166, cm, 02/02/23 8:45:00 EDT, Height/Length Dosing, 85, kg, 02/02/23 8:45:00 EDT, Weight Dosing Body Mass Index (BMI) documented 3008F Current tobacco non-user 1036F Depression Screening Negative 3352F Discharge medications reconciled with current medications in outpatient record 1111F ECG 12 Lead Adult [facility] External Ambulatory Referral Medication list documented in medical record 1159F Patient screen for fall risk: no falls in last year or 1 fall with no injury in last year 1101F Review of all meds by a prescribing practitioner or clinical pharmacist documented in EHR 1160F 5. BMI 29.0-29.9,adult (Z68.29: Body mass index [BMI] 29.0-29.9, adult) BMI education given Ordered: ECG 12 Lead Adult [facility] External Ambulatory Referral 6. Overweight (BMI 25.0-29.9) (E66.3: Overweight) see above Ordered: ECG 12 Lead Adult 7. Right hip pain (M25.551: Pain in right hip) pt had injection in right hip a few years ago and was pain free until a couple weeks ago. 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 if hip continues to be a problem we will order x ray and pain management for injection Orders: potassium chloride, 20 mEq = 1 tab(s), Oral, Daily, # 90 tab(s), Refills(s) 1, Pharmacy: [facility]/pharmacy #[id number], 166, cm, 08/24/23 8:56:00 EDT, Height/Length [...] Migraines O (more content not included)... Normal [facility] Comment on above: Result Comment: Elec tronically Signed By: Sabina Ruth\.br\Date and Time Signed: 12/03/23 09:56 EDT Ambulatory Visit Summaryon 0 08-24-2023 Ambulatory Visit Summary NORI QUEZADA :1940 Visit Date:08/24/2023 Ambulatory Visit Instructions Your [...] Multivitamin oral capsule) omega-3 polyunsaturated fatty acids ([employer] Kr[employer] Oil) potassium chloride (Klor-Con [...] Appointments 2023 1:00 PM EDT With: Where: [facility] [place] Normal [address] [place] [address]- \.br\ Medications\.br\ What How Much When Why [...] Every day\.br\ Unchanged omega-3 polyunsaturated fatty acids ([employer] Kr[employer] Oil) 500 Milligram By [...] for choosing us for your care.\.br\ \.br\ [facility] BMPon 08-24-2023 Anion gap [Moles/Vol] 10 mmol/L Normal 6-16 [facility] Comment on above: Performed By: #### 2 [id number], [id number], [id number], [id number] ####[facility] [address] [place] [address] Calcium [Mass/Vol] 9.4 mg/dL Normal 8.9-11.1 [facility] Comment on above: Performed By: #### 2 721940, [id number], [id number], [id number] ####[facility] [address] [place] [address] Chloride [Moles/Vol] 104 mmol/L Normal 101-111 [facility] Comment on above: Performed By: #### 2 081020, [id number], [id number], [id number] ####[facility] [address] [place] [address] CO2 [Moles/Vol] 30 mmol/L Normal 21-31 [facility] Comment on above: Performed By: #### 2 250939, [id number], [id number], [id number] ####[facility] [address] [place] [address] Creatinine [Mass/Vol] 0.7 mg/dL Normal 0.5-1.3 [facility] Comment on above: Performed By: #### 2 065221, [id number], [id number], [id number] ####[facility] [address] [place] [address] Glucose [Mass/Vol] 79 mg/dL Normal 55-199 [facility] Comment on above: Performed By: #### 2 293520, [id number], [id number], [id number] ####[facility] [address] [place] [address] Potassium [Moles/Vol] 4.3 mmol/L Normal 3.5-5.3 [facility] Comment on above: Performed By: #### 2 224262, 6640719, [id number], [id number] ####[facility] [address] [place] [address] Sodium [Moles/Vol] 140 mmol/L Normal 135-145 [facility] Comment on above: Performed By: #### 2 255209, [id number], [id number], [id number] ####[facility] [address] [place] [address] Urea nitrogen [Mass/Vol] 19 mg/dL Normal 5-21 [facility] Comment on above: Performed By: #### 2 [id number], 2401317, [id number], [id number] ####[facility] [address] [place] [address] Urea nitrogen/Creatinine [Mass ratio] 27 No Units High 10-20 [facility] System Comment on above: Performed By: #### 2 [id number], [id number], [id number] ####[facility] [address] [place] [address] CHEMISTRYOrdered By: SYSTEM SYSTEM on 08-24-2023 25-hydroxyvitamin [...] Metabolic Panel Iron Level Lab Specimen Collect 71686 Vitamin D 25 Hydroxy 3. Leg cramps (R25.2: Cramp and spasm) pt c/o leg cramps and feeling week will check electrolytes today Ordered: Basic Metabolic Panel Iron Level Lab Specimen Collect 15965 Vitamin D 25 Hydroxy 4. Non-smoker (Z78.9: Other specified health status) continue not smoking Ordered: Basic Metabolic Panel Iron Level Lab Specimen Collect 46643 Vitamin D 25 Hydroxy 5. BMI 30.0-30.9,adult (Z68.30: Body mass index [BMI] 30.0-30.9, adult) BMI education complete Ordered: Basic Metabolic Panel Iron Level Lab Specimen Collect 43503 Vitamin D 25 Hydroxy Orders: amoxicillin, See Instructions, TAKE 4 CAPSULES BY MOUTH 1/2 HOUR BEFORE PROCEDURE AND 2 CAPSULES 4 HOURS AFTER PROCEDURE, # 6 cap(s), Refills(s) 1, Pharmacy: [facility]/pharmacy #[id number], 166, cm, 03/16/23 9:10:00 EST, Height/Length Dosing, 85.6, kg, 03/16/23 9:10:00 EST, W... amoxicillin, See Instructions, TAKE 4 CAPSULES BY MOUTH 1/2 HOUR BEFORE PROCESURE AND 2 CAPSULES 4 HOURS AFTER, # 6 caplet(s), Refills(s) 1, Pharmacy: [facility]/pharmacy #[id number], 166, cm, 08/24/23 8:56:00 EDT, Height/Length Dosing, 84, kg, 08/24/23 8:56:00 EDT, Weight Dosing potassium chloride, 20 mEq = 1 tab(s), Oral, Daily, # 90 tab(s), Refills(s) 1, Pharmacy: [facility]/pharmacy #[id number], 166, cm, 08/24/23 8:56:00 EDT, Height/Length [...] Cardiac arres (more content not included)... Normal [facility] Comment on above: Result Comment: Elec tronically Signed By: Sabina Ruth\.br\Date and Time Signed: 08/24/23 13:06 EDT Ironon 08-24-2023 Iron [Mass/Vol] 63 microgram/dL Normal 35-153 Fish er [facility] Comment on above: Performed By: #### 2 [id number], [id number] ####[facility] [address] [place] [address] Patient Logson 08-24-2023 Patient Logs [id number] #1.00TIFF Normal [facility] Vitamin D 25 Hydroxyon 08-23 25-hydroxyvitamin D3 [Mass/Vol] 53.7 ng/mL Normal 30.0-100.0 [facility] Comment on above: Performed By: #### 2 [id number], [id number] ####[facility] [address] [place] [address] eGFRon 08-24-2023 eGFR 87 mL/min/1.73 m2 Normal >=59 [facility] Comment on above: Order Comment: Order added by Discern Expert. Performed By: #### 2 [id number], [id number] ####[facility] [address] [place] [address] Nurse Consultation Noteon Nurse Consultation Note Reason [...] 03/16/2023 Recorded covid 19 vishal-sucrose SARS-CoV-2 (COVID-19) mRNAMUL.ORD![id number] 02/23/2022 Recorded influenza virus vaccine, inactivated 02/10/2022 [...] inactivated 03/06/2010 Recorded influenza, whole 02/05/2009 Recorded [facility] Immunization Recordson 03-18 Immunization Records [id number] #1.00TIFF [facility] Ambulatory Visit Summaryon 1 05-16-2022 Ambulatory Visit Summary NORI QUEZADA :1940 Visit Date:03/16/2023 Ambulatory Visit Instructions Your [...] Appointments Wednesday 9:00 AM EST With: Where: [facility] Invalid Interpretation Code [address] [place] [address]- \.br\ Wednesday 2:00 PM EDT \.br\ With:\.br\ Where: [facility] Family Medicine Office/Clini c Noteon 03-16-2023 [...] PROCEDURE, # 6 cap(s), Refills(s) 1, Pharmacy: [facility]/pharmacy #[id number], 166, cm, 03/16/23 9:10:00 EST, Height/Length Dosing, 85.6, kg, 03/16/23 9:10:00 EST, W... APAP/butalbital/caff eine, 1 tab(s), Oral, q4hr Headache, 30 tab(s), Refill(s) 0, [facility]/pharmacy #[id number], 166, cm, 03/16/23 9:10:00 EST, Height/Length [...] Immunizations Vaccine Date Status Comments SARS-CoV-2 (COVID-19) mRNAMUL.ORD![id number] 02/23/2022 Recorded influenza virus vaccine, inactivated 02/10/2022 Recorded SARSCoV2 mRNA(tozinamer-vishal- sucros) vac 11/12/2021 Recorded influenza virus vaccine, inactivated - Not Given Patient Refuses SARS-CoV-2 (COVID-19) mRNA BNT-162b2 vax 01/23/2021 Recorded 2022-11-25: TPV75 (more content not included)... Normal [facility] Comment on above: Result Comment: Elec tronically Signed By: Linda MAHAN, Sabina Hall\.br\Date and Time Signed: 03/16/23 10:17 EST Patient Logson 03-16-2023 Patient Logs [id number] #1.00TIFF Normal [facility] Patient Logson 03-09-2023 Patient Logs [id number] #1.00TIFF Normal [facility] CHEMISTRYOrdered By: SYSTEM SYSTEM on 02-02-2023 Albumin [...] rate/Area] 74 mL/min/1.73 m2 Normal >=59mL/min/1.73 m2 [facility] Comment on above: Interpretive Data: [...] 17 mg/dL Normal 5 - 21 mg/dL [facility] Remisol Urea nitrogen/Creatinine [Mass ratio] 21 mg/mg [...] 6.2 E9/L Normal 4.0 - 11.0 E9/L [facility] HemeAutoSS MG MAMM SCREEN 3D JAMES CADon 12-19-2021 MG MAMM SCREEN 3D JAMES CAD Patient: NORI QUEZADA Exam Date: 12/19/2021 : 1940 Gender:F Ordering : DR BRITTANY FREEDMAN . Admission #: [id number] Family : Order #: [id number] CLICK HERE TO VIEW EXAM RADIOLOGY REPORT [...] colon cancer at age 69. LOCATION: [facility] BREAST COMPOSITION: Extremely dense, which lowers [...] MD on 12/19/2021 at 13:46 Normal [facility] CBC AUTO DIFFon 12-12-2021 BASO # 0.0 103/ul Normal 0.0-0.1 [facility] Comment on above: Performed By: #### C BC #### [facility] [id number] Kaiser García Basophils/100 WBC (Bld) 0.3 % Normal 0.2-2.0 [facility] Comment on above: Performed By: #### C BC #### [facility] [address] [address] [address] Kaiser García EO # 0.1 103/ul Normal 0.0-0.7 [facility] Comment on above: Performed By: #### C BC #### [facility] [address] [address] [address] Kaiser García Eosinophils/100 WBC (Bld) 1.9 % Normal 0.9-7.0 [facility] Comment on above: Performed By: #### C BC #### [facility] [address] [address] [address] Kaiser García Erythrocyte distribution width (RBC) [Ratio] 13.9 % Normal 11.0-15.0 [facility] Comment on above: Performed By: #### C BC #### [facility] [address] [place] [address] Dr. Kaiser García Hematocrit (Bld) [Volume fraction] 38.5 % Normal 36.0-48.0 [facility] Comment on above: Performed By: #### C BC #### [facility] [address] [place] [address] Dr. Kaiser García Hemoglobin (Bld) [Mass/Vol] 12.0 g/dL Normal 12.0-16.0 [facility] Comment on above: Performed By: #### C BC #### [facility] [address] [place] [address] Dr. Kaiser García IG # 0.03 10e3/ul Normal 0.00-0.03 [facility] Comment on above: Performed By: #### C BC #### [facility] [address] [place] [address] Dr. Kaiser García IG % 0.4 % Normal 0.0-0.5 [facility] Comment on above: Performed By: #### C BC #### [facility] [address] [place] [address] Dr. Kaiser García LYMPH # 2.5 103/ul Normal 1.2-3.8 [facility] Comment on above: Performed By: #### C BC #### [facility] [address] [place] [address] Dr. Kaiser García Lymphocytes/100 WBC (Bld) 35.7 % Normal 20.5-60.0 [facility] Comment on above: Performed By: #### C BC #### [facility] [address] [place] [address] Dr. Kaiser García MANUAL DIFF REQ NO Normal [facility] Comment on above: Performed By: #### C BC #### [facility] [address] [place] [address] Dr. Kaiser García MCH (RBC) [Entitic mass] 28.5 pg Normal 26.7-34.0 [facility] Comment on above: Performed By: #### C BC #### [facility] [address] [place] [address] Dr. Kaiser García MCHC (RBC) [Mass/Vol] 31.2 g/dL Normal 29.9-35.2 [facility] Comment on above: Performed By: #### C BC #### [facility] [address] [place] [address] Dr. Kaiser García MCV (RBC) [Entitic vol] 91.4 fL Normal 81.0-99.0 [facility] Comment on above: Performed By: #### C BC #### [facility] [address] [place] [address] Dr. Kaiser García MONO # 0.6 103/ul Normal 0.3-0.8 [facility] Comment on above: Performed By: #### C BC #### [facility] [address] [place] [address] Dr. Kaiser García Monocytes/100 WBC (Bld) 8.7 % Normal 1.7-12.0 [facility] Comment on above: Performed By: #### C BC #### [facility] [address] [place] [address] Dr. Kaiser García NEUT # 3.7 103/ul Normal 1.4-6.5 [facility] Comment on above: Performed By: #### C BC #### [facility] [address] [place] [address] Dr. Kaiser García Neutrophils/100 WBC (Bld) 53.0 % Normal 43.0-75.0 [facility] Comment on above: Performed By: #### C BC #### [facility] [address] [place] [address] Dr. Kaiser García Platelet mean volume (Bld) [Entitic vol] 9.4 fL Critically low 9.5-13.5 [facility] Comment on above: Performed By: #### C BC #### [facility] [address] [place] [address] Dr. Kaiser García PLT 244 103/ul Normal 150-450 [facility] Comment on above: Performed By: #### C BC #### [facility] [address] [place] [address] Dr. Kaiser García RBC 4.21 106/ul Normal 4.20-5.40 [facility] Comment on above: Performed By: #### C BC #### [facility] [address] [place] [address] Dr. Kaiser García WBC 6.9 103/ul Normal 4.0-11.0 [facility] Comment on above: Performed By: #### C BC #### [facility] [address] [place] [address] Dr. Kaiser García PROF 14(COMP METB)on 022 Albumin [Mass/Vol] 3.6 g/dL Normal 3.4-5.0 [facility] Comment on above: Performed By: #### C MP, TSH ####[facility] [address] [address]Dr. Kaiser García Albumin/Globulin [Mass ratio] 1.1 {ratio} Normal [facility] Comment on above: Performed By: #### C MP, TSH ####[facility] [address] [address]Dr. Anahimanisha García ALP [Catalytic activity/Vol] 51 U/L Normal 46-116 [facility] Comment on above: Performed By: #### C MP, TSH ####[facility] [address] [address]Dr. Anahimanisha García ALT [Catalytic activity/Vol] 19 U/L Normal 14-59 [facility] Comment on above: Performed By: #### C MP, TSH ####[facility] [address] [address]Dr. Kaiser García Anion gap [Moles/Vol] 11.6 mmol/L Normal [facility] Comment on above: Performed By: #### C MP, TSH ####[facility] [address] [address]Dr. Kaiser García AST [Catalytic activity/Vol] 14 U/L Critically low 15-37 [facility] Comment on above: Performed By: #### C MP, TSH ####[facility] [address] [address]Dr. Kaiser García Bilirubin [Mass/Vol] 0.3 mg/dL Normal 0.2-1.0 [facility] Comment on above: Performed By: #### C MP, TSH ####[facility] [address] [address]Dr. Kaiser García Calcium [Mass/Vol] 9.0 mg/dL Normal 8.5-10.1 [facility] Comment on above: Performed By: #### C MP, TSH ####[facility] [address] [address]Dr. Kaiser García Chloride [Moles/Vol] 104 mmol/L Normal 98-107 [facility] Comment on above: Performed By: #### C MP, TSH ####[facility] [address] [address]Dr. Kaiser García CO2 [Moles/Vol] 28.4 mmol/L Normal 21.0-32.0 [facility] Comment on above: Performed By: #### C ROBBY, TSH ####[facility] [address] [id number]. Anahimanisha García Creatinine [Mass/Vol] 0.73 mg/dL Normal 0.55-1.02 [facility] Comment on above: Performed By: #### C MP, TSH ####[facility] [address] [id number][address] Kaiser Ricky EGFR-AF KAZAKH >60 Normal >=60 [facility] Comment on above: Performed By: #### C ROBBY, TSH ####[facility] [address] [place], [place] [address]Dr. Kaiser García EGFR-NON AF KAZAKH >60 Normal >=60 [facility] Comment on above: Performed By: #### C ROBBY, TSH ####[facility] [address] [place], [place] [address]Dr. Kaiser Ricky Globulin (S) [Mass/Vol] 3.4 g/dL Normal [facility] Comment on above: Performed By: #### C ROBBY, TSH ####[facility] [address] [place], [place] [address]Dr. Kaiser Ricky Glucose [Mass/Vol] 73 mg/dL Critically low 74-106 Th [facility] Comment on above: Performed By: #### C ROBBY, TSH ####[facility] [address] [place], [place] [address]Dr. Kaiser Ricky Potassium [Moles/Vol] 4.0 mmol/L Normal 3.5-5.1 [facility] Comment on above: Performed By: #### C ROBBY, TSH ####[facility] [address] [place], [place] [address]Dr. Kaiser García Protein [Mass/Vol] 7.0 g/dL Normal 6.4-8.2 [facility] Comment on above: Performed By: #### C ROBBY, TSH ####[facility] [address] [place], [place] [address]DrNia García Sodium [Moles/Vol] 140 mmol/L Normal 136-145 [facility] Comment on above: Performed By: #### C MP, TSH ####[facility] [address] [place], [place] [address]VwNia García Urea nitrogen [Mass/Vol] 23.0 mg/dL Critically high 7.0-18.0 [facility] Comment on above: Performed By: #### C MP, TSH ####[facility] [address] [place], [place] [address]YnNia García Urea nitrogen/Creatinine [Mass ratio] 31.5 mg/mg Normal [facility] Comment on above: Performed By: #### C MP, TSH ####[facility] [address] [place], [place] [address]HeDr. Kaiser García TSHon 12-12-2021 TSH 1.112 uIU/mL Normal 0.358-3.740 [facility] Comment on above: Performed By: #### C MP, TSH ####[facility] [address] [place], [place] [address]XlNia García XR CHEST 1 Von 12-04-2021 XR [...] Mesfin LIZ Date: 2021-12-03 23:19 Normal [facility] CBC AUTO DIFFon 12-03-2021 BASO # 0.0 103/ul Normal 0.0-0.1 [facility] Comment on above: Performed By: #### C BC #### [facility] [address] [place], [place] [address] Dr. Kaiser García Basophils/100 WBC (Bld) 0.3 % Normal 0.2-2.0 [facility] Comment on above: Performed By: #### C BC #### [facility] [address] [place] [address] Dr. Kaiser García EO # 0.1 103/ul Normal 0.0-0.7 [facility] Comment on above: Performed By: #### C BC #### [facility] [address] [place] [address] Dr. Kaiser García Eosinophils/100 WBC (Bld) 1.0 % Normal 0.9-7.0 [facility] Comment on above: Performed By: #### C BC #### [facility] [address] [place] [address] Dr. Kaiser García Erythrocyte distribution width (RBC) [Ratio] 13.8 % Normal 11.0-15.0 [facility] Comment on above: Performed By: #### C BC #### [facility] [address] [place] [address] Dr. Kaiser García Hematocrit (Bld) [Volume fraction] 38.5 % Normal 36.0-48.0 [facility] Comment on above: Performed By: #### C BC #### [facility] [address] [place] [address] Dr. Kaiser García Hemoglobin (Bld) [Mass/Vol] 12.4 g/dL Normal 12.0-16.0 [facility] Comment on above: Performed By: #### C BC #### [facility] [address] [place] [address] Dr. Kaiser García IG # 0.01 10e3/ul Normal 0.00-0.03 [facility] Comment on above: Performed By: #### C BC #### [facility] [address] [place] [address] Dr. Kaiser García IG % 0.2 % Normal 0.0-0.5 [facility] Comment on above: Performed By: #### C BC #### [facility] [address] [place] [address] Dr. Kaiser García LYMPH # 2.0 103/ul Normal 1.2-3.8 [facility] Comment on above: Performed By: #### C BC #### [facility] [address] [place] [address] Dr. Kaiser García Lymphocytes/100 WBC (Bld) 32.4 % Normal 20.5-60.0 [facility] Comment on above: Performed By: #### C BC #### [facility] [address] [place] [address] Dr. Kaiser García MANUAL DIFF REQ NO Normal [facility] Comment on above: Performed By: #### C BC #### [facility] [address] [place] [address] Dr. Kaiser García MCH (RBC) [Entitic mass] 28.8 pg Normal 26.7-34.0 [facility] Comment on above: Performed By: #### C BC #### [facility] [address] [place] [address] Dr. Kaiser García MCHC (RBC) [Mass/Vol] 32.2 g/dL Normal 29.9-35.2 [facility] Comment on above: Performed By: #### C BC #### [facility] [address] [place] [address] Dr. Kaiser García MCV (RBC) [Entitic vol] 89.3 fL Normal 81.0-99.0 [facility] Comment on above: Performed By: #### C BC #### [facility] [address] [place] [address] Dr. Kaiser García MONO # 0.3 103/ul Normal 0.3-0.8 [facility] Comment on above: Performed By: #### C BC #### [facility] [address] [place] [address] Dr. Kaiser García Monocytes/100 WBC (Bld) 4.2 % Normal 1.7-12.0 [facility] Comment on above: Performed By: #### C BC #### [facility] [address] [place] [address] Dr. Kaiser aGrcía NEUT # 3.9 103/ul Normal 1.4-6.5 [facility] Comment on above: Performed By: #### C BC #### [facility] [address] [address] [address] Kaiser García Neutrophils/100 WBC (Bld) 61.9 % Normal 43.0-75.0 [facility] Comment on above: Performed By: #### C BC #### [facility] [address] [address] [address] Kaiser García Platelet mean volume (Bld) [Entitic vol] 10.1 fL Normal 9.5-13.5 [facility] Comment on above: Performed By: #### C BC #### [facility] [address] [address] [address] Kaiser García PLT 175 103/ul Normal 150-450 [facility] Comment on above: Performed By: #### C BC #### [facility] [address] [place] [address] Dr. Kaiser García RBC 4.31 106/ul Normal 4.20-5.40 [facility] Comment on above: Performed By: #### C BC #### [facility] [address] [place] [address] Dr. Kaiser García WBC 6.2 103/ul Normal 4.0-11.0 [facility] Comment on above: Performed By: #### C BC #### [facility] [address] [place] [address] Dr. Kaiser García PROF 14(COMP METB)on 022 Albumin [Mass/Vol] 3.6 g/dL Normal 3.4-5.0 [facility] Comment on above: Performed By: #### H DEEPALI, CMP #### [facility] [address] [place] [address] Dr. Kaiser García Albumin/Globulin [Mass ratio] 1.0 {ratio} Normal [facility] Comment on above: Performed By: #### H DEEPALI, CMP #### [facility] [address] [place] [address] Dr. Kaiser García ALP [Catalytic activity/Vol] 54 U/L Normal 46-116 [facility] Comment on above: Performed By: #### H DEEPALI, CMP #### [facility] [address] [address] [address] Kaiser García ALT [Catalytic activity/Vol] 17 U/L Normal 14-59 [facility] Comment on above: Performed By: #### H JAMIRPN, CMP #### [facility] [address] [address] [address] Kaiser García Anion gap [Moles/Vol] 15.4 mmol/L Normal [facility] Comment on above: Performed By: #### H JAMIRPN, CMP #### [facility] [address] [address] [address] Kaiser García AST [Catalytic activity/Vol] 21 U/L Normal 15-37 [facility] Comment on above: Performed By: #### H DEEPALI, CMP #### [facility] [address] [place] [address] Dr. Kaiser García Bilirubin [Mass/Vol] 0.4 mg/dL Normal 0.2-1.0 [facility] Comment on above: Performed By: #### H DEEPALI, CMP #### [facility] [address] [address] [address] Kaiser García Calcium [Mass/Vol] 9.1 mg/dL Normal 8.5-10.1 [facility] Comment on above: Performed By: #### H DEEPALI, CMP #### [facility] [address] [address] [address] Kaiser García Chloride [Moles/Vol] 101 mmol/L Normal 98-107 [facility] Comment on above: Performed By: #### H DEEPALI, CMP #### [facility] [address] [address] [address] Kaiser García CO2 [Moles/Vol] 22.4 mmol/L Normal 21.0-32.0 [facility] Comment on above: Performed By: #### H DEEPALI, CMP #### [facility] [address] [address] [address] Kaiser García Creatinine [Mass/Vol] 1.19 mg/dL Critically high 0.55-1.02 [facility] Comment on above: Performed By: #### H JAMIRPN, CMP #### [facility] [address] [address] [address] Kaiser García EGFR-AF KAZAKH 53 mL/min/1.73m2 Critically low >=60 [facility] Comment on above: Performed By: #### H STROPN, CMP #### [facility] [address] [address] [address] Kaiser García EGFR-NON AF KAZAKH 44 mL/min/1.73m2 Critically low >=60 [facility] Comment on above: Performed By: #### H STROPN, CMP #### [facility] [address] [address] [address] Kaiser García Globulin (S) [Mass/Vol] 3.5 g/dL Normal [facility] Comment on above: Performed By: #### H STROPN, CMP #### [facility] [address] [address] [address] Kaiser García Glucose [Mass/Vol] 220 mg/dL Critically high 74-106 T [facility] Comment on above: Performed By: #### H STROPN, CMP #### [facility] [address] [address] [address] Kaiser García Potassium [Moles/Vol] 3.8 mmol/L Normal 3.5-5.1 [facility] Comment on above: Performed By: #### H STROPN, CMP #### [facility] [address] [address] [address] Kaiser García Protein [Mass/Vol] 7.1 g/dL Normal 6.4-8.2 [facility] Comment on above: Performed By: #### H STROPN, CMP #### [facility] [address] [address] [address] Kaiser García Sodium [Moles/Vol] 135 mmol/L Critically low 136-145 Th [facility] Comment on above: Performed By: #### H STROPN, CMP #### [facility] [address] [address] [address] Kaiser García Urea nitrogen [Mass/Vol] 22.0 mg/dL Critically high 7.0-18.0 [facility] Comment on above: Performed By: #### H DEEPALI, CMP #### [facility] [address] [address] [address] Kaiser García Urea nitrogen/Creatinine [Mass ratio] 18.5 mg/mg Normal [facility] Comment on above: Performed By: #### H DEEPALI, CMP #### [facility] [address] [address] [address] Kaiser García TROPONIN, HIGH SENSITIVITYon 12-03-2021 HSTROP 9.4 pg/mL Normal 4.0-51.3 [facility] Comment on above: Result Comment: CUT- OFF POINTS HAVE BEEN ESTABLISHED BASED ON THE FOURTH UNIVERSAL DEFINITIONS OF MYOCARDIAL INFARCTION. THE UPPER REFERENCE LIMIT (URL) OF TROPONIN, DEFINED THE 99TH PERCENTILE OF cTnI DISTRIBUTION IN A REFERENCE POPULATION, HAS BEEN CONFIRMED THE DECISION THRESHOLD FOR DC DIAGNOSIS. Performed By: #### H DEEPALI, CMP #### [facility] [address] [place] [address] Dr. Kaiser García Covid-19 PCR (CVDTB)on 11-17 SARS-CoV-2 (COVID-19) RNA DANIEL+probe Ql (Unsp spec) Not detected Normal NOT DETECTED [facility] Comment on above: Result Comment: This test is not yet approved or cleared by the [place] FDA. When there are no FDA-approved or cleared tests available, and other criteria are met, FDA can make tests available under an emergency access mechanism called an Emergency Use Authorization (EUA). The EUA for this test is supported by the [place] of Health and Human Service's (HHS's) declaration [...] consistent with SARS-CoV-2. Performed By: #### C VDTB #### [facility] [address] [address] [address] Kaiser García US ISABELLA DOP LEG [...] by: BERNARD REZA Date: 2021-10-17 16:45 Normal [facility] Encounters Encounter Date Encounter Type Care Provider Facility Start: 12-07-2024 ambulatory RATING CLERK Sabina L Linda Facil ity:[facility] Start: 05-08-2024 ambulatory Beryl scherer PA-C Facility:[facility] Start: 04-10-2024 End: 04-10-2024 ambulatory AB [facility] Start: 02-24-2024 End: 02-24-2024 Lab Drop off Sabina L Linda [facility] Start: 02-24-2024 End: 02-24-2024 ambulatory RATING CLERK Sabina L Linda [facility] Start: 02-23-2024 End: 02-23-2024 Bamboo flowsheet Capo Acuña DPM Work Phone: [facility] Start: 02-23-2024 End: 02-23-2024 Bamboo flowsadonay Acuña DPM Work Phone: [facility] Start: 02-23-2024 End: 02-23-2024 Patient encounter procedure Capo Acuña DPM Work Phone: [facility] Comment on above: Onychomycosis (Prima ry Dx); Corns and callosities; Other specified peripheral vascular diseases (CMS/HCC); Pain in both feet Start: 02-23-2024 End: 02-23-2024 ambulatory CAPO ACUÑA Not Available Start: 02-15-2024 End: 02-15-2024 ambulatory MONICA RODRÍGUEZ Facility:[facility] [place] Start: 12-24-2023 End: 12-24-2023 ambulatory RATING CLERK Saibna L Linda Facility:[facility] [place] Start: 12-22-2023 End: 12-22-2023 Bamboo flowsheet Capo Acuña DPM Work Phone: [facility] Start: 12-22-2023 End: 12-22-2023 Bamboo flowsheet Capo Acuña DPM Work Phone: [facility] Start: 12-22-2023 End: 12-22-2023 Patient encounter procedure Capo Acuña DPM Work Phone: [facility] Comment on above: Onychomycosis (Prima ry Dx); Pain in both feet; Corns and callosities; Other specified peripheral vascular diseases (CMS/HCC) Start: 12-22-2023 End: 12-22-2023 ambulatory CAPO ACUÑA Not Available Start: 12-03-2023 End: 12-03-2023 ambulatory RATING CLERK Sabina L Linda Facility:[facility] [place] Start: 12-02-2023 End: 12-02-2023 ambulatory RATING CLERK Sabina L Linda Facility:[facility] Start: 10-18-2023 End: 10-18-2023 ambulatory CAPO ACUÑA Not Available Start: 08-24-2023 End: 08-24-2023 Lab Drop off Sabina L Linda [facility] Start: 08-24-2023 End: 08-24-2023 ambulatory RATING CLERK Sabina L Linda [facility] Start: 08-12-2023 End: 08-12-2023 ambulatory CAPO ACUÑA Not Available Start: 06-08-2023 End: 06-08-2023 ambulatory CAPO ACUÑA Not Available Start: 04-01-2023 End: 04-01-2023 ambulatory CAPO Chuck ROZINA Not Available Start: 03-23-2023 End: 03-23-2023 ambulatory RATING CLERK Sabina L Linda [facility] Start: 03-16-2023 End: 03-16-2023 ambulatory RATING CLERK Sabina L Linda [facility] Start: 02-02-2023 End: 02-02-2023 Lab Drop off Sabina L Linda [facility] Start: 06-05-2022 End: 06-18-[address] BRITTANY FREEDMAN . Facility:[facility] Start: 12-24-2021 End: 12-24-[address] BRITTANY FREEDMAN . Facility:[facility] Start: 12-19-2021 End: 12-20-[address] BRITTANY FREEDMAN . Facility:[facility] Start: 12-12-2021 End: 12-13-[address] BRITTANY FREEDMAN . Facility:[facility] Start: 12-03-2021 End: 12-04-[address] ORVILLE ACUÑA Facility:[facility] Start: 12-02-2021 End: 12-02-[address] BRITTANY FREEDMAN . Facility:[facility] Start: 10-17-2021 End: 10-18-[address] BRITTANY FREEDMAN . Facility:[facility] Start: 09-24-2021 End: 09-24-[address] LAMAR SEXTON . Facility:[facility] Start: 09-20-[address] LAMAR SEXTON . Facil ity:[facility] Start: 08-20-2021 End: 08-20-[address] BRITTANY FREEDMAN . Facility: Procedures Date Procedure Procedure [...] procedure 09/06/2024 10:15 AM EDT Procedure Visit [facility] [address] [place] [id number] Capo Acuña, DPM [address] [place] [address] [facility] Start: 07-03-2024 End: 07-03-2024 Patient encounter procedure 07/03/2024 10:15 AM EDT Procedure Visit [facility] [address] [place] [phone] Capo Acuña, DPM [address] [place] [address] [facility] Start: 04-27-2024 End: 04-27-2024 Patient encounter procedure 04/27/2024 10:45 AM EST Procedure Visit [facility] [address] [place] [phone] Capo Acuña, DPM [address] [place] [address] [facility] Start: 02-23-2024 End: 02-23-2024 Patient encounter procedure [facility] Comment on above: Arrived Start: 12-22-2023 End: 12-22-2023 Patient encounter procedure 12/22/2023 10:00 AM EDT Procedure Visit [facility] [address] [place] [id number] Capo Acuña DPNiecy [address] [place] [address] Arrived [facility] Comment on above: Arrived Start: 12-19-2023 Influenza vaccination Influenza Vacc ine (#1) [facility] Immunizations Immunization Date Immunization Notes Care Provider Fa cility 03-16-2023 SARS-CoV-2 mRNA (tozinameran 5y-11y) vaccine Sabina Linda [facility] Comment on above: Result Comment: covi d 19 vishal-sucrose 02-26-2023 influenza virus vaccine, unspecified formulation Cpao Acuña DPM Work Phone: [facility] 02-23-2022 SARS-CoV-2 (COVID-19 ) [id number] Sabina Linda [facility] 02-10-2022 influenza virus vaccine, unspecified formulation Sabina Linda [facility] 11-12-2021 SARS-CoV-2 mRNA (dubrqthlkqe-clkm-udutu se) vaccine Sabina Linda [facility] 01-23-2021 SARS-CoV-2 (COVID-19 ) mRNA BNT-162b2 vax Sabina Linda [facility] Comment on above: Result Comment: 2022: [id number] 06-12-2020 SARS-CoV-2 (COVID-19 ) mRNA BNT-162b2 vax Sabina Linda [facility] Comment on above: Result Comment: 2022: [id number] 05-22-2020 SARS-CoV-2 (COVID-19 ) mRNA BNT-162b2 vax Sabina Linda [facility] Comment on above: Result Comment: 2022: [id number] 01-26-2020 influenza virus vaccine, unspecified formulation Sabina Linda [facility] 04-19-2019 pneumococcal conjuga te vaccine, 13 valent Sabina Linda [facility] 02-23-2019 influenza virus vaccine, unspecified formulation Sabina Linda [facility] 05-25-2018 pneumococcal polysaccharide vaccine, 23 valent Sabina Linda [facility] 02-15-2018 influenza virus vaccine, unspecified formulation Sabina Linda [facility] 02-24-2017 influenza virus vaccine, unspecified formulation Sabina Linda [facility] 03-06-2016 pneumococcal conjuga te vaccine, 13 valent Sabina Linda [facility] 02-20-2016 influenza virus vaccine, unspecified formulation Sabina Linda [facility] 02-20-2014 influenza virus vaccine, unspecified formulation Sabina Linda [facility] 02-22-2013 influenza virus vaccine, unspecified formulation Sabina Linda [facility] 03-06-2010 influenza virus vaccine, unspecified formulation Sabina Linda [facility] 02-05-2009 influenza, whole Sabina Linda [facility] NEGATED: Highlighted row has not occurred!07-01-2021 influenza virus vaccine, unspecified formulation Sabina Linda [facility] [place] Payers Date Payer Category Payer Private Health Insurance [employer] [id number] 2020 Unknown [id number]. [id number] 2007 Medicare [id number]. [id number] 1959 Medicare [id number] 1959 Unknown [id number] 1942 Unknown [id number] 2.16.840.1.743798.3.579.2. 593 1942 Unknown [id number] 2.16.840.1.072624.3.579.2. 593 1942 Unknown [id number] 2.16.840.1.346579.3.579.2. 593 1942 Unknown [id number] 2.16.840.1.075205.3.579.2. 593 1942 Unknown [id number] 2.16.840.1.221410.3.579.2. 593 1942 Unknown [id number] 2.16.840.1.684578.3.579.2. 593 1942 Unknown [id number] 2.16.840.1.193670.3.579.2. 593 1942 Unknown [id number] 2.16.840.1.133078.3.579.2. 593 1942 Unknown [id number] 2.16.840.1.381582.3.579.2. 593 1942 Unknown [id number] 2.16.840.1.877902.3.579.2. 593 1942 Unknown [id number] 2.16.840.1.455960.3.579.2. 1259 1942 Unknown [id number] 2.16.840.1.667012.3.579.2. 1259 1942 Unknown [id number] 2.16.840.1.138450.3.579.2. 1259 1942 Unknown [id number] 2.16.840.1.371892.3.579.2. 1259 1942 Unknown [id number] 2.16.840.1.586538.3.579.2. 1259 1942 Unknown [id number] 2.16.840.1.950745.3.579.2. 1259 1942 Unknown [id number] 2.16.840.1.592688.3.579.2. 727 1942 Unknown [id number] 2.16.840.1.730655.3.579.2. 727 1942 Unknown [id number] 2.16.840.1.628075.3.579.2. 727 1942 Unknown [id number] 2.16.840.1.359745.3.579.2. 727 1942 Unknown [id number] 2.16.840.1.756422.3.579.2. 727 1942 Unknown [id number] 2.16.840.1.892663.3.579.2. 727 1942 Unknown [id number] 2.16.840.1.857612.3.579.2. 727 1942 Unknown [id number] 2.16.840.1.540155.3.579.2. 727 1942 Unknown [id number] 2.16.840.1.537327.3.579.2. 72 1942 Unknown [id number] 2.16.840.1.599274.3.579.2. 72 1942 Unknown [id number] 2.16.840.1.615846.3.579.2. 72 1942 Unknown [id number] 2.16.840.1.237707.3.579.2. 196 Social History Date Type Detail Facility Start: 11-03-2022 End: 02-02-2023 Tobacco smoking status Never smoked tobacco (finding) [facility] Comment on above: never Tobacco smoking status Never Pending Sale To [facility] Comment on above: never Start: 10-18-2023 End: 12-22-2023 Sex Assigned At Female [facility] Start: 11-03-2022 Tobacco use and exposure Smokeless tobacco non-user [facility] Start: 10-18-2023 End: 12-22-2023 Alcoholic beverage intake Lifetime non-drinker (finding) [facility] Start: 10-18-2023 End: 12-22-2023 History of Social function [facility] Start: 01-13-2023 Alcohol Comment caffeine intak e: 2-3 cups per day coffee,chocolate [facility] Start: 1940 Sex assigned at Not on file [facility] Medical Equipment Procedure Code Equipment Code Equipment Origin al Text Equipment Identifier Dates CATARACT EXTRACT ION W/ INTRAOCULAR LENS Fredy Moseley DO 04/30/20 Non Biological Eye L {[id number] FDA Start: 04-30-2020 CATARACT EXTRACT ION W/ INTRAOCULAR LENS Fredy Moseley DO 05/14/20 Non Biological Eye R {[id number] [facility] Start: 05-14-2020 Clinical Notes 08-20-2021 to 04-10-2024 Capo Acuña DPM - 02/23/2024 9:15 AM Shyann Acuña DPM - 12/22/2023 10:00 AM EDT Note Date & Type Note Facility 04-10-2024 Note [facility] Note Chief Complaint: New patient here to establish care. She has no cardiac history or family cardiac history. C/o SOB with exertion and fatigue. Denies chest pain and palpitations. Had lipid panel last month, and carotid US back in Nov 2023 when she was having pain by her collar bone she says. HPI: Nori Quezada is a 83 y.o. female Here for symptoms of exertional shortness of breath and fatigue . Per her description, this has been going on for several years but apparently has been worsening recently. The shortness of breath is brought on by physical activity; she has to rest and then it improves. She denies associated exertional chest pain or chest pressure. She has no palpitations, she denies dizziness but does feel unstable . No orthopnea, no paroxysmal tunnel dyspnea, no lower extremity edema. Her primary care providers were aware of the shortness of breath as well as pain underneath her left collarbone. They ordered a number of tests that have been unrevealing. She has had a stress test but this was many years ago. She does not believe she has had an echocardiogram. Past medical history: Hypertension, gastroesophageal reflux disease, dyslipidemia, migraine headaches, overweight Cardiology ROS: Review of Systems All other systems reviewed and are negative. Past Medical History She has no past medical history on file. Surgical History She has no past surgical history on file. Social History She has no history on file for tobacco use, alcohol use, and drug use. Family History No family history on file. Allergies Patient has no allergy information on record. Medications No current outpatient medications on file. Last Recorded Vitals BP 132/78 (BP Location: Left arm, Patient Position: Sitting) Pulse 75 Ht 1.702 m (5' 7 ) Wt 82.6 kg (182 lb) SpO2 98% BMI 28.51 kg/m??? Physical Examination: GENERAL: alert and oriented x3, well developed, in no acute distress. HEAD: atraumatic, normocephalic. EYES: PEGGY, EOMI. NECK: trachea midline, no JVD present, no carotid bruits present. CARDIAC: S1, S2 present. RRR. No murmur, rubs, or gallops. RESPIRATORY: CTAB, no increased effort of breathing, no rales, rhonchi, or wheezing. ABDOMEN: soft, nontender, nondistended. EXTREMITIES: no lower extremity edema, peripheral pulses are 2+ bilaterally. No rash/skin discoloration present. NEURO: strength/sensation equal and symmetric in bilateral upper and lower extremities. PSYCH: appropriate mood, affect, and judgement. Investigations: Labs 02/24/2024: Cholesterol 166, triglycerides 102, HDL 55, LDL 92 TSH normal at 1.56 Chest x-ray 02/24/2024: Stable chest. No consolidating infiltrate suggest pneumonia Carotid ultrasonography 12/07/2023: Less than 50% stenosis bilateral carotid arteries. Vertebral arteries are patent and demonstrate antegrade flow. 12 lead EKG 04/10/2024 Normal sinus rhythm, 63 bpm, sinus arrhythmia, incomplete right bundle branch block Assessment: Shortness of breath on exertion Fatigue History of hypertension Dyslipidemia Carotid stenosis less than 50% Plan: 1. Will order a complete echocardiogram 2. Given her risk factor profile, symptoms, and concerns regarding ischemic heart disease, we will schedule her for a treadmill Cardiolite stress test. If she is unable to exercise, this can be switched to a Lexiscan pharmacological stress test. 3. She will need serial monitoring for her carotid stenoses; I will discuss with her the need for secondary preventive measures in the form of aspirin and a statin at her next visit 4. Should her cardiac investigations to be unrevealing, I would recommend investigations for potential pulmonary etiologies. This can be discussed with her primary care providers. I will see her after testing. Ian Sims MD, MPH, FACC, [facility], [facility] Interventional Cardiology Pager Email: [email or web address] 02-23-2024 History of Present illness Narrative Images [...] and dust often. General instructions ??? Take moec-lfv-yctkvxy and prescription medicines only as told by your doctor. ??? Drink enough fluid to keep your pee pale yellow. Where to find more information ??? [place] [employer]: [email or web address] [...] provider. Document Revised: 12/14/2022 Document Reviewed: 12/14/2022 [employer] Patient Education ? 2023 Thumbs Up. [facility] 12-22-2023 History of Present illness Narrative Images from [...] clipping nails. History of ulcers/wounds: no. PCP: Sabina Mckeon NP Date of Last visit 08/07/23 Aggravated by: shoe gear, pressure. Risk factors: curvature of nails. Allergies No Known Drug Allergy: Allergy Examination General Examination: GENERAL EXAMINATION: awake, aware of surroundings, in no acute distress. FOOT EXAM: Date of Last Foot Exam 12/21/23 Vascular: DORSALIS PEDIS PULSE: 2/4, bilaterally. POSTERIOR [...] documented in this encounter [facility] 12-03-2023 Note Patient Education Cardiovascular [...] wine (148 mL), (more content not included)... [facility] 09-24-2021 Note OPERATIVE NOTE OPERATION DATE: 09/24/2021 [...] change depending on the pathology report. CC: Brittany Freedman M.D. [facility] Signed and Approved by: DR LAMAR SEXTON . 09/25/2021 12:58:00 [facility] 08-20-2021 Note OPERATIVE NOTE OPERATION DATE: [...] will be rescheduled after different prep. CC: Brittany Freedman M.D. [facility] Signed and Approved by: DR LAMAR SEXTON . 08/21/2021 07:27:00 [facility] Evaluation + Plan note Future Appointments Appointment Date:03/16/2023 09:00:00 AM Scheduled Provider:Sabina Ruth Location:[facility] [place] Appointment Type:FM Open Appointment Date:12/03/2023 02:00:00 PM Scheduled Provider: Location:[facility] Appointment Type:FM Medicare Wellness Subsequent [facility] Evaluation + Plan note Future Appointments Appointment Date:11/25/2023 01:00:00 PM Scheduled Provider: Location:[facility] [place] Appointment Type: Medicare Wellness Subsequent Appointment Date:02/24/2024 10:00:00 AM Scheduled Provider:Sabina Ruth Location:[facility] Appointment Type: Open [facility] Evaluation + Plan note Future Appointments Appointment Date:12/07/2024 11:00:00 AM Scheduled Provider: Location:[facility] Appointment Type: Medicare Wellness Subsequent [facility] Evaluation note Diagnosis Onychomycosis- Primary Dermatophytosis of nail Corns and callosities Other specified peripheral vascular diseases (CMS/HCC) Pain in both feet [facility] Diagnosis Onychomycosis- Primary Dermatophytosis of nail Pain in both feet Corns and callosities Other specified peripheral vascular diseases (CMS/HCC) [facility] Narrative No data available for this section [facility] No data available for this section [facility] No data available for this section [facility] Summary Purpose Family History No Family History Records Found No data available for this section No data available for this section No Family History Records FoundNo Family History Records Found No data available for this section No Family History Records FoundNo Family History Records FoundNo Family History Records FoundNo Family History Records Found Advance Directives No Advanced Directives Records FoundNo Advanced Directives Records FoundNo Advanced Directives Records FoundNo Advanced Directives Records FoundNo Advanced Directives Records FoundNo Advanced Directives Records FoundNo Advanced Directives Records Found Additional Source Comments INFORMATION SOURCE (unrecogn ized section and content) DATE CREATED AUTHOR 07/25/2022 [facility] DATE CREATED AUTHOR AUTHOR'S ORGANIZ ATION 02/24/2024 [facility] DATE CREATED AUTHOR AUTHOR'S ORGANIZ ATION 02/25/2024 [facility] DATE CREATED AUTHOR AUTHOR'S ORGANIZ ATION 02/26/2024 [facility] DATE CREATED AUTHOR AUTHOR'S ORGANIZ ATION 03/04/2024 [facility] DATE CREATED AUTHOR AUTHOR'S ORGANIZ ATION 04/12/2024 [facility] DATE CREATED AUTHOR AUTHOR'S ORGANIZ ATION 04/18/2024 [facility] Patient Care team informatio n (unrecognized section and content) Manager Dental Relationship Specialty Start Date End Date Awais Guillory MD [address], [place] [id number] PCP - General Family Medicine 01/27/23 Manager Dental Relationship Specialty Start Date End Date Awais Guillory MD [address] [place] [address] PCP - General Family Medicine 01/27/23 Manager Dental Relationship Specialty Start Date End Date Awais Guillory MD PCP - General Family Medicine 01/27/23 Manager Dental Relationship Specialty Start Date End Date Awais Guillory MD PCP - General Family Medicine 01/27/23 FOR [...] BE BASED ON THE PRIMARY CLINICAL RECORDS. [employer] provides no warranty or guarantee of the accuracy or completeness of information in this document.
== END 2024-04-28 07:02 | disposition home or self-care (01) ==
LOC: NM 07:02
PROVIDERS: PCP Nurse Practitioner; Visit Provider Internal Medicine Interventional Cardiology
DX: R06.09 Other forms of dyspnea (principal); R53.83 Other fatigue
CPT/HCPCS: 78452; 93017; A9500

== ENCOUNTER 2024-07-03 08:53 | Outpatient (OUT) | payer MEDICARE, OTHER, SELFPAY ==
[2024-07-03 10:19] LABS: Alanine Aminotransferase 25 U/L (14-59); Albumin Globulin Ratio 1.2; Albumin Level 3.7 g/dL (3.4-5.0); Alkaline Phosphatase 54 U/L (46-116); Aspartate Amino Transferase 18 U/L (15-37); Bilirubin Direct 0.1 mg/dL (0.0-0.2); Bilirubin Total 0.5 mg/dL (0.2-1.0); Chol HDL Ratio 1.6; Cholesterol 110 mg/dL (<=200); Globulin 3.2 g/dL; HDL Cholesterol 67 mg/dL (40-60); Total Protein 6.9 g/dL (6.4-8.2); Triglycerides 36 mg/dL (<=150); VLDL CHOLESTEROL 7.2 mg/dL
== END 2024-07-03 08:54 | disposition home or self-care (01) ==
LOC: LAB 08:54
PROVIDERS: PCP Nurse Practitioner; Visit Provider Internal Medicine Interventional Cardiology
DX: E78.5 Hyperlipidemia, unspecified (principal)
CPT/HCPCS: 36415; 80061; 80076

== ENCOUNTER 2024-07-14 09:55 | Outpatient (OUT) | payer MEDICARE, OTHER, SELFPAY ==
--- NOTE | 2024-07-14 09:58 | US_ITS ---
The [address] [address] Patient Name: NIMCO PRESTON MRN: [id number] date: 1940 Sex: F Assigned Patient Location: [place] Current Patient Location: [place] Accession/Order Number: [id number] Exam Date: 07/14/2024 11:13 Report Date: 07/14/2024 11:16 At the request of: MARICHUY MICHEL Procedure: US soft tissue head and neck Ultrasound of the neck HISTORY: Palpable lump right side of the neck for one month duration. The right neck lump was scanned. There is multiple hypoechoic areas with echogenic teresa with largest measuring 9 x 9 x 6 mm consistent with multiple small lymph nodes. Heterogeneous appearance of the submandibular gland with increased vascularity is present. This is superficial to palpable abnormality. May represent inflammatory change. There are no worrisome fluid collections. US/US soft tissue head and neck IMPRESSION: Multiple small lymph nodes corresponding with palpable abnormality of the right-sided the neck. Submandibular gland appears inflamed and may contribute to adenopathy suggesting reactive process. May consider follow-up assessment for resolution. Impression dictated by: Wesley Dukes M.D.07/14/2024 11:16 AM Dictation Location: [place] [address] Electronically authenticated by: [id number] Date: 07/14/2024 11:16
--- OUTSIDE RECORDS SUMMARY | 2024-07-14 10:15 | XMS_ITS | CCD ---
Author Organization [facility] Care Team Providers Care Emt Intermediate Name Role Phone CORINA ., DR BRITTANY [...] Oh Primary Care Unavailable ROZINA, DR ORVILLE eBck Attending Unavailable KENY LIZ Consulting Unavailable NILL [...] BRITTANY Oh Primary Care Unavailable Linda, Sabina L Primary Care Physician [phone] Awais Guillory MD Primary Care Provider [phone] MONICA RODRÍGUEZ Attending Unavailable Linda, BET TAKER Sabina L Attending Unavailable Linda, BET TAKER Sabina L Attending Unavailable Linda, BET TAKER Sabina L Attending Unavailable Linda, BET TAKER Sabina L Attending Unavailable Linda, BET TAKER Sabina L Attending Unavailable Linda, BET TAKER Sabina L Attending Unavailable Linda, BET TAKER Sabina L Attending Unavailable Linda, BET TAKER Sabina L Attending Unavailable Linda, BET TAKER Sabina L Attending Unavailable Linda, BET TAKER Sabina L Admitting Unavailable Linda, BET TAKER Sabina L Attending Unavailable Linda, BET TAKER Sabina L Admitting Unavailable Awais Guillory MD Primary Care Provider [phone] Linda SHUTTLE VENEERING SUPERVISOR-CHIP PERSON, Sabina Burroughs Primary Care Nisava Zheng Carrillo MD Attending Unavai lable Linda SHUTTLE VENEERING SUPERVISOR-CHIP PERSON, Sabina Burroughs Primary Care Unava Zheng Carrillo MD Attending Unavai lable [place], [facility]AB Attending Unavailable [place], EHAB Attending Unavailable CAPO ACUÑA H Attending Unavailable ROZINA, CAPO H Attending Unavailable ACUÑA, CAPO H Attending Unavailable ACUÑA, CAPO H Attending Unavailable ROZINA, CAPO H Attending Unavailable ROZNIA CAPO H Attending Unavailable Linda, Sabina L Attending Unavailable Linda, Sabina L Attending Unavailable Linda, Sabina L Admitting Unavailable Allergies Allergy Classification Reported Allergen(s) Allergy Type Date of Onset Reaction(s) Facility (3 sources) Amitriptyline; Translations: [amitriptyline] Drug Allergy [facility] Repository (1 source) Cephalexin Drug Allergy 2 [facility] Repository (3 sources) Amitriptyline; Translations: [amitriptyline] Drug Allergy Unknown (qualifier value) General [facility] [place] (6 sources) Cefuroxime; Translations: [cefuroxime] Drug Allergy 4 Syncope and collapse (disorder), Itching (finding) [facility] (3 sources) No Known Medication Allergies; Translations: [No Known Medication Allergies] Propensity to adverse reactions (disorder) [facility] Repository Medications Current Medications Medication Drug Class(es) Dates Sig (Normalized) Sig (Original) acetaminophen 300 mg / butalbital 50 mg oral tablet (7 sources) Barbiturate take 1 tablet by mouth [...] Oral, q4hr Headache, 30 tab(s), Refill(s) 0, [facility]/pharmacy #[id number], 166, cm, 03/16/23 9:10:00 EST, Height/Length Dosing, 85.6, kg, 03/16/23 9:10:00 EST, Weight Dosing Start Date: 03/16/23 Status: Ordered alendronic acid 70 mg oral tablet (10 sources) Bisphosphonate Start: 02-10-2024 alendronate 70 mg Tab See Instructions, TAKE 1 TABLET ONCE EVERY 7 DAYS, # 12 tab(s), Refills(s) 0, Pharmacy: [facility] STORE [id number], 167.5, cm, 12/24/23 10:08:00 EDT, Height/Length Dosing, 83.2, kg, 12/24/23 10:08:00 EDT, Weight Dosing Start Date: 02/10/24 Status: Ordered Start: 08-24-2023 alendronate 70 mg Tab 70 mg = 1 tab(s), Oral, q7day, # 12 tab(s), Refills(s) 0, Pharmacy: [facility]/pharmacy #[id number], 166, cm, 08/24/23 8:56:00 EDT, Height/Length Dosing, 84, kg, 08/24/23 8:56:00 EDT, Weight Dosing Start Date: 08/24/23 Status: Ordered Start: 04-29-2020 take 1 tablet by eric every week alendronate (Fosamax) 70 MG tablet Take 70 mg by mouth 1 (one) time per week. 12/17/2022 Active amoxicillin 500 mg oral capsule (1 source) Penicillin-class Antibacterial Start: 08-24-2023 amoxicillin 500 mg Cap See Instructions, TAKE 4 CAPSULES BY MOUTH 1/2 HOUR BEFORE PROCESURE AND 2 CAPSULES 4 HOURS AFTER, # 6 caplet(s), Refills(s) 1, [id number], 166, cm, 08/24/23 8:56:00 EDT, Height/Length Dosing, 84, kg, 08/24/23 8:56:00 EDT, Weight Dosing Start Date: 08/24/23 Status: Ordered azithromycin 250 mg oral tablet (1 source) Macrolide Antimicrobial Start: 02-24-2024 End: 02-29-2024 azithromycin 250 mg Tab = 1 packet(s), Oral, As Directed, as directed on package labeling, X 5 day(s), # 6 tab(s), Refills(s) 0, [id number], 167.5, cm, 02/24/24 10:05:00 EST, Height/Length [...] Ordered colestipol hydrochloride 1000 mg oral tablet (10 sources) Bile Acid Sequestrant Start: 10-26-2023 take 1 tablet by mouth once daily colestipol 1 g Tab See Instructions, TAKE 1 TABLET BY MOUTH EVERY DAY, # 90 tab(s), Refills(s) 1, Pharmacy: [facility] STORE [id number], 166, cm, 08/24/23 8:56:00 EDT, Height/Length Dosing, 84, kg, 08/24/23 8:56:00 EDT, Weight Dosing Start Date: 10/26/23 Status: Ordered Start: 04-27-2023 take 1 tablet by eric th once daily Colestid 1 g Tab 1 gm = 1 tab(s), Oral, Daily, # 90 tab(s), Refills(s) 1, [id number], 166, cm, 03/16/23 9:10:00 EST, Height/Length [...] DAY, # 90 cap(s), Refills(s) 3, Pharmacy: [facility] [id number], 167.5, cm, 12/24/23 10:08:00 EDT, Height/Length Dosing, 83.2, kg, 12/24/23 10:08:00 EDT, Weight Dosing Start Date: 01/18/24 Status: Ordered Start: 02-26-2023 take 1 capsule by mo uth once daily hydrochlorothiazide 12.5 mg Cap 12.5 mg = 1 cap(s), Oral, Daily, # 90 cap(s), Refills(s) 3, [id number], 166, cm, 02/02/23 8:45:00 EDT, Height/Length Dosing, 85, kg, 02/02/23 8:45:00 EDT, Weight Dosing Start Date: 02/26/23 Status: Ordered Start: 02-02-2023 take 1 capsule by mo uth once daily hydrochlorothiazide 12.5 mg Cap 12.5 mg = 1 cap(s), Oral, Daily, # 30 cap(s), Refills(s) 2, [id number], 166, cm, 02/02/23 8:45:00 EDT, Height/Length Dosing, 85, kg, 02/02/23 8:45:00 EDT, Weight Dosing Start Date: 02/02/23 Status: Ordered losartan potassium 25 mg oral tablet (10 sources) Angiotensin 2 Receptor Peter Start: 12-08-2022 End: 05-03-2023 take 1 tablet by mouth in the morning losartan (Cozaar) 25 MG tablet Take 25 mg by mouth in the morning and 25 mg before bedtime. 12/08/2022 Active methylPREDNISolone 4 mg oral tablet (1 source) Corticosteroid Start: 02-24-2024 End: 03-01-2024 Medrol 4 mg Tab = 1 packet(s), Oral, As Directed, as directed on package labeling, X 6 day(s), # 21 tab(s), Refills(s) 0, [id number], 167.5, cm, 02/24/24 10:05:00 EST, Height/Length [...] # 90 tab(s), Refills(s) 1, Pharmacy: [facility] [id number], 167.5, cm, 12/24/23 10:08:00 EDT, Height/Length Dosing, 83.2, kg, 12/24/23 10:08:00 EDT, Weight Dosing Start Date: 01/18/24 Status: Ordered Start: 02-02-2023 take 1 tablet by eric th once daily Klor-Con M20 oral tablet, extended release 20 mEq = 1 tab(s), Oral, Daily, # 90 tab(s), Refills(s) 1, Pharmacy: [facility]/pharmacy #[id number], 166, cm, 08/24/23 8:56:00 EDT, Height/Length [...] Sig (Original) albuterol 0.83 mg/ml inhalation solution (11 sources) beta2-Adrenergic Agonist Start: 02-24-2024 albuterol 0.083% Inh Yaima 3 mL See Instructions, 30 EA, Refill(s) 1, INHALE CONTENTS OF 1 VIAL VIA NEBULIZER EVERY 4 HOURS*J45.909*, [facility]/pharmacy #[id number], 167.5, cm, 02/24/24 10:05:00 EST, Height/Length [...] Date Documented Date Episodic/Chronic Acquired foot deformities (7 sources) Acquired hammer toe of left foot; Translations: [Other hammer toe(s) (acquired), left foot] Onset: 01-28-2001-27-2023 Chronic Acquired foot deformities (7 sources) Acquired hammer toe of right foot; [...] including migraine (3 sources) Migraine 04-07-2021 Chronic Heart valve disorders (2 sources) Nonrheumatic aortic (valve) insufficiency; Translations: [Nonrheumatic aortic (valve) insufficiency] Onset: 05-11-19 Chronic Malaise and fatigue (7 sources) Other fatigue; Translations: [Fatigue] Onset: 12-13-19 Episodic Mycoses (4 sources) Onychomycosis; Translations: [Tinea unguium] 02-23-2024 Episodic Nonspecific chest pain (1 source) Chest pain 12-03-2023 Episodic Nutritional deficiencies (4 sources) Vitamin D deficiency, unspecified; Translations: [Vitamin D deficiency] Onset: 10-01-1904-07-2021 Chronic Osteoporosis (11 sources) Age-related osteoporosis without current pathological fracture; Translations: [Osteoporosis] Onset: 10-01-1904-07-2021 Chronic Other and unspecified benign neoplasm (3 sources) History of polyp of colon 04-08-2021 Episod ic Other circulatory disease (5 sources) Peripheral vascular disease; Translations: [Other specified peripheral vascular diseases] 02-23-2024 Chronic Other congenital anomalies (7 sources) Porokeratosis; Translations: [Other specified congenital malformations of skin] Onset: 01-28-2001-27-2023 Chronic Other connective tissue disease (1 source) Presence of right artificial knee joint; Translations: [PRESENCE RT ARTIFICIAL KNEE JOINT] Onset: 10-01-19 Chronic Other connective tissue disease (2 sources) Cramp in lower limb 08-24-2023 Episodic Other connective tissue disease (3 sources) Pain in both feet; Translations: [Pain in right foot] 02-23-2024 Episodic Other connective tissue disease (1 source) Plantar fasciitis; Translations: [Plantar fascial fibromatosis] 07-06-2024 Episodic Other ear and sense organ disorders [...] than 30 12-03-2023 Episodic Other skin disorders (4 sources) Callosity; Translations: [Corns and callosities] 02-23-2024 [...] 09-30-2021 Episodic Other aftercare (1 source) Other long goods drier (current) drug therapy; Translations: [OTH ALF CURRENT DRUG THERAPY] Onset: 12-05-2021 Episodic Other [...] Range Facil ity Ambulatory Visit Summaryon 0 07-13-2024 Ambulatory Visit Summary Ambulatory Visit Summary NORI QUEZADA :1940 Visit Date:07/13/2024 Ambulatory Visit Instructions Your Diagnosis Lump in neck Non-smoker BMI 30.0-30.9,adult Your Care Team Attending Physician - Sabina Ruth Primary Care Physician - Sabina Ruth This Is Your Medications List APAP/butalbital/caff eine (APAP/butalbital/caf feine 325 mg-50 mg-40 mg Tab) Non-Formulary Medication (Probiotic) albuterol albuterol (albuterol 0.083% Inh Yaima 3 mL) albuterol (albuterol 0.083% Inh Yaima 3 mL) alendronate (alendronate 70 mg Tab) calcium carbonate [...] Cystoscopy, Urethral dilatation. Discharge Vitals Temperature (Oral) 36.1 ???C Heart Rate (Peripheral) 76 Respiratory Rate 20 Blood Pressure 128/88 Height 165.7 cm Height 65 in Weight 83.5 kg Weight 184.086 lb BMI 30.41 What to do next Scheduled Follow-Up Appointments 2024 11:00 AM EDT Where: [place] [id number]- Medications What How Much When Instructions Unchanged albuterol Nebulized inhalation (aerosol) Every 4 hours as needed for Allergy symptoms Unchanged albuterol (albuterol 0.083% Inh Yaima 3 mL) 3 Milliliter INHALE CONTENTS OF 1 VIAL VIA NEBULIZER EVERY 4 HOURS*J45.909* Unchanged albuterol (albuterol 0.083% Inh Yaima 3 mL) See instructions INHALE CONTENTS OF 1 VIAL VIA NEBULIZER EVERY 4 HOURS*J45.909* Unchanged alendronate (alendronate 70 mg Tab) See [...] Tab) 1 Tablets By Mouth Every day Unchanged multivitamin with minerals (Celebrate Multivitamin oral [...] reflux disease) HTN (hypertension) Hypercholesteremia Leg cramps Lump in neck Migraines Osteoporosis Overweight (BMI 25.0-29.9) Personal history of colonic polyps Right hip pain Shortness of breath Vitamin D deficiency Patient Survey You may receive a survey via text or e-mail asking about your office visit. Please share your experience with us by completing your survey. We appreciate your feedback and thank you for choosing us for your care. [facility] Family Medicine Office/Clini c Noteon 07-13-2024 Family Medicine Office/Clinic Note Family Medicine Office/Clinic Note HPI Staff Nori is a 83 year old female presenting for acute visit Onset: First week of May Location: neck right side Characteristics: lump area is swelled no pain or burning sore when she turns her head Aggravated by: Relieved by: nothing Questions/Concerns: Comes and goes History of Present Illness pt presents today for lump on right side of neck. she noticed it in May. Review of Systems PHQ Score Initial Depression Screen Score: 0 SCORE Physical Exam Vitals & Measurements T: 36.1 ???C(Oral) HR: 76(Peripheral) RR: 20 BP: 128/88 SpO2: 100% HT: 165.7 cm HT: 65 in WT: 83.5 kg WT: 184.086 lb BMI: 30.41 General: alert, no acute distress ENMT: oral mucosa moist, no pharyngeal erythema or exudate Cardiovascular: regular rate and rhythm, normal peripheral perfusion Respiratory: Lungs CTA, respirations non labored Extremities: no deformity, no trauma Neurological: oriented x 4, LOC appropriate for age, CN II-XII intact, motor strength equal & normal bilaterally, speech normal small lump palpated on right submandibular area Assessment/Plan 1. Lump in neck (R22.1: Localized swelling, mass and lump, neck) pt noticed a lump on right side of neck in May. Shortly after having covid. pt sates it comes and goes, it does not hurt. i suspect swollen lymph node but will order u/s to confirm. order faxed to [facility]. 2. Non-smoker (Z78.9: Other specified health status) continue not smoking Ordered: losartan, 25 mg = 1 tab(s), Oral, BID, # 180 tab(s), Refills(s) 3, Pharmacy: [facility]/pharmacy #[id number], 167.5, cm, 02/15/24 11:55:00 EDT, Height/Length Dosing, 84.4, kg, 02/15/24 11:55:00 EDT, Weight Dosing 3. BMI 30.0-30.9,adult (Z68.30: Body mass index [BMI] 30.0-30.9, adult) BMI education given Follow-up No qualifying data available Problem List/Past Medical History Ongoing Allergic rhinitis, seasonal Asthma BMI 29.0-29.9,adult BMI 30.0-30.9,adult Cerumen impaction Change in bowel habits Chest pain Chronic UTI Cough Diverticulosis Fatigue GERD (gastroesophageal reflux disease) HTN (hypertension) Hypercholesteremia Leg cramps Lump in neck Migraines Osteoporosis Overweight (BMI 25.0-29.9) Personal history of colonic polyps Right hip pain Shortness of breath Vitamin D deficiency Historical No qualifying data Procedure/Surgical History Cataract extraction and insertion of intraocular lens (05/14/2020), Cataract extraction and insertion of intraocular lens (04/30/2020), Colonoscopy (11/25/2016), Colonoscopy (10/11/2013), Colonoscopy (09/28/2012), Appendectomy, Arthroplasty of knee, Cervical polypectomy, Cholecystectomy, Cystoscopy, Urethral dilatation. Medications albuterol, NEB, q4hr, PRN albuterol 0.083% Inh Yaima 3 mL, 2.5 mg= 3 mL albuterol 0.083% Inh Yaima 3 mL, See Instructions, 1 refills alendronate 70 mg Tab, See Instructions APAP/butalbital/caff [...] mg Tab, 25 mg= 1 tab(s), Oral, Daily, Not taking Probiotic, 1 tab, Oral, Daily Vitamin D3, 50 mcg, Oral, Daily Allergies cefuroxime (Syncope and collapse, Itch) amitriptyline (Unknown) Social History Alcohol - Low Risk, 12/01/2022 Current. Wine. 1-2 times per year., 02/15/2024 Substance Abuse - Denies Substance Abuse, 04/08/2021 Never., 02/15/2024 Tobacco Never (less than 100 in lifetime) Tobacco Use:. Never Smokeless Tobacco Use:. Cigarettes, Household tobacco concerns: No. Yes, 07/13/2024 Family History Cardiac arrest: Mother. Primary malignant neoplasm of colon: Father. Immunizations Vaccine Date Status Comments influenza virus vaccine, inactivated 03/17/2024 Recorded SARS-CoV-2 mRNA (tozinameran 5y-11y) vac 03/16/2023 Recorded covid 19 vishal-sucrose influenza virus vaccine, inactivated 02/26/2023 Recorded SARS-CoV-2 (COVID-19) [id number] 02/23/2022 Recorded influenza virus vaccine, inactivated 02/10/2022 [...] inactivated 02/15/2018 Recorded influenza virus vaccine, inactivated 02/24 (more content not included)... Normal [facility] Comment on above: Result Comment: Elec tronically Signed By: Sabina Ruth\.br\Date and Time Signed: 07/13/24 09:24 EDT Orders Onlyon 06-27-2024 Orders Only [id number] Nori Quezada 1940 F Date Provider Department Center 06/27/2024 [facility] Family History Problem Relation Age of Onset No Known Problems Mother No Known Problems Father Family Status - Relation Status Age at Mother Father Normal [facility] Office Visiton 05-11-2024 Follow-up visit [id number] Nori Quezada 1940 F Date Provider Department Center 05/11/2024 [facility] Family History Problem Relation Age of Onset No Known Problems Mother No Known Problems Father Family Status - Relation Status Age at Mother Father Level of Service:99379 [place] OFFICE/OUTPATIENT ESTABLISHED MOD MDM 30 MIN Normal [facility] Office Visiton 04-10-2024 Follow-up visit [id number] Nori Quezada 1940 F Date Provider Department Center 04/10/2024 [facility] Family History Problem Relation Age of Onset No Known Problems Mother No Known Problems Father Family Status - Relation Status Age at Mother Father Level of Service:32418 [place] OFFICE/OUTPATIENT NEW MODERATE MDM 45 MINUTES Normal [facility] Reminderson 02-25-2024 Reminders Reminders - From: Sabina [...] Subject: RE: Ambulatory Reminder verbalizes understanding [facility] Ambulatory Visit Summaryon 1 04-25-2023 Ambulatory [...] Follow-Up Appointments 2024 11:00 AM EDT Where: [address] [address]- Medications What How Much When Why Instructions New azithromycin (azithromycin 250 mg Tab) 1 Packets By Mouth As Directed HTN (hypertension) Hypercholesteremia Duration: 5 Days as directed on package labeling Pickup at [facility]/pharmacy #[id number] New methylPREDNISolone (Medrol 4 mg Tab) 1 Packets By Mouth As Directed HTN (hypertension) Hypercholesteremia Duration: 6 Days as directed on package labeling Pickup at [facility]/pharmacy #[id number] Unchanged albuterol Nebulized inhalation (aerosol) Every [...] TABLET BY MOUTH EVERY DAY Pharmacy Information [facility]/pharmacy #[id number]: [address], [place] [id number] [phone] Allergies cefuroxime (Syncope and collapse, Itch) amitriptyline [...] for choosing us for your care. Normal [facility] CHEMISTRYOrdered By: SYSTEM SYSTEM on 02-24-2024 Cholesterol [...] # 6 tab(s), Refills(s) 0, [id number], 167.5, cm, 02/24/24 10:05:00 EST, Height/Length Dosing, 83.8, kg, 02/24/24 10:05:00 EST, Weight Dosing losartan, 25 mg = 1 tab(s), Oral, BID, # 180 tab(s), Refills(s) 3, [id number], 166, cm, 03/16/23 9:10:00 EST, Height/Length Dosing, 85.6, kg, 03/16/23 9:10:00 EST, Weight Dosing losartan, 25 mg = 1 tab(s), Oral, BID, # 180 tab(s), Refills(s) 3, [id number], 167.5, cm, 02/15/24 11:55:00 EDT, Height/Length Dosing, 84.4, kg, 02/15/24 11:55:00 EDT, Weight Dosing methylPREDNISolone, = 1 packet(s), Oral, As Directed, as directed on package labeling, X 6 day(s), # 21 tab(s), Refills(s) 0, [id number], 167.5, cm, 02/24/24 10:05:00 EST, Height/Length Dosing, 83.8, kg, 02/24/24 10:05:00 EST, Weight Dosing Lipid Panel Thyroid Stimulating Hormone 2. Hypercholesteremia (E78.00: Pure hypercholesterolemia , unspecified) lipid panel in office today Ordered: azithromycin, = 1 packet(s), Oral, As Directed, as directed on package labeling, X 5 day(s), # 6 tab(s), Refills(s) 0, [id number], 167.5, cm, 02/24/24 10:05:00 EST, Height/Length Dosing, 83.8, kg, 02/24/24 10:05:00 EST, Weight Dosing methylPREDNISolone, = 1 packet(s), Oral, As Directed, as directed on package labeling, X 6 day(s), # 21 tab(s), Refills(s) 0, [id number], 167.5, cm, 02/24/24 10:05:00 EST, Height/Length [...] # 6 caplet(s), Refills(s) 1, [id number], 166, cm, 08/24/23 8:56:00 EDT, Height/Length [...] Oral, BID (more content not included)... Normal [facility] Comment on above: Result Comment: Elec tronically Signed By: Sabina Ruth\.br\Date and Time Signed: 02/24/24 10:38 EST Lipid Panelon 02-24-2024 Cholesterol [Mass/Vol] 166 mg/dL Normal 120-200 [facility] Comment on above: Performed By: #### 2 [id number] #### [facility] [address] [place] [address] Cholesterol in HDL [Mass/Vol] 55 mg/dL Invalid Interpretation Code [facility] Comment on above: Result Comment: '>= 60 LOW RISK' '<= 40 HIGH RISK' Performed By: #### 2 [id number] #### [facility] [address] [place] [address] Cholesterol in LDL [Mass/Vol] 92 mg/dL Normal <=129 [facility] Comment on above: Performed By: #### 2 [id number] #### [facility] [address] [place] [address] Cholesterol in VLDL [Mass/Vol] 20 mg/dL Normal 7-40 [facility] Comment on above: Performed By: #### 2 [id number] #### [facility] [address] [place] [address] Triglyceride [Mass/Vol] 102 mg/dL Normal <=149 [facility] Comment on above: Performed By: #### 2 [id number] #### [facility] [address] [place] [address] TSHon 02-24-2024 TSH Qn 1.56 m[IU]/L Normal 0.34-5.60 [facility] Comment on above: Performed By: #### 2 [id number] #### [facility] [address] [place] [address] Family Medicine Office/Clini c Noteon 02-15-2024 Family [...] with a non-smoker Ordered: Rapid COVID POC 55394 3. BMI 30.0-30.9,adult (Z68.30: Body mass index [...] at subsequent visits. Ordered: Rapid COVID POC 42055 4. 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 Ordered: Rapid COVID POC 88739 Follow-up No qualifying data available Patient Education Allergic Rhinitis, Adult, Dody-lg-Vmwr Problem List/Past Medical History Ongoing Allergic rhinitis, [...] Instructions hydrochlorothiazide 12.5 mg Cap, See Instructions Garcíaor (more content not included)... Normal [facility] Comment on above: Result Comment: Elec tronically Signed By: MONICA RODRÍGUEZ CNP\.br\Date and Time Signed: 02/15/24 13:18 EDT Ambulatory Visit Summaryon 0 12-24-2023 Ambulatory Visit Summary Ambulatory Visit Summary MOHAN NORI S :1940 Visit Date:12/24/2023 Ambulatory Visit Instructions Your [...] 10:00 AM EST With: Sabina Ruth Where: [address] [address] 2024 11:00 AM EDT With: Where: [address] [id number]- Medications What How Much When Why Instructions [...] for choosing us for your care. Normal [facility] Family Medicine Office/Clini c Noteon 12-24-2023 [...] mRNA (toz (more content not included)... Normal [facility] Comment on above: Result Comment: Elec [...] 9:00 AM EDT With: Sabina Ruth Where: [address] [address] 2023 10:00 AM EST With: Linda MAHAN, Sabina Hall Where: [address] [address] 2024 11:00 AM EDT With: Where: [address] [address]- Medications What How Much When [...] calculated? (more content not included)... Normal [facility] Ambulatory Visit Summary Ambulatory Visit Summary [...] 10:00 AM EDT With: Sabina Ruth Where: [address] [address] 2023 10:00 AM EST With: Sabina Ruth Where: [address] [address] 2024 11:00 AM EDT With: Where: [address] [address]- Medications What How Much When Why Instructions [...] choosing us for your care. [facility] Family Medicine Office/Clini c Noteon 12-03-2023 [...] of clutter to prevent tripping and/or falling. [place] Advance Directives reviewed. Documents are scanned into [...] PCP visit. Labs to be completed with [facility]. No concerns with bowel/ bladder. Colonoscopy last [...] jovanni (more content not included)... Normal [facility] Comment on above: Result Comment: Elec tronically Signed By: Sabina Ruth\.br\Date and Time Signed: 12/03/23 10:21 EDT\.br\Electronically Co-Signed By: Renu Yang\.br\Date and Time Co-Signed: 12/03/23 08:31 EDT\.br\Electronically Co-Signed By: Renu Yagn\.br\Date and Time Co-Signed: 12/03/23 08:33 EDT Family [...] referral to go to Dr. Rajput in [place], this is who her sees. patient originally thought she just pulled a muscle in her chest when pulling weeds. but with her having SOB and fatigue I feel she needs further work up by cardiology. Ordered: ECG 12 Lead Adult [facility] 2. Shortness of breath (R06.02: Shortness of breath) pt gets very short of breath on any exertion Ordered: ECG 12 Lead Adult [facility] [place] 3. Fatigue (R53.83: Other fatigue) EKG, carotid artery u/s and chest x ray ordered Ordered: [facility] [place] 4. Non-smoker (Z78.9: Other [...] outpatient record 1111F ECG 12 Lead Adult [facility] [place] Medication list documented in medical record 1159F Patient screen for fall risk: no falls in last year or 1 fall with no injury in last year 1101F Review of all meds by a prescribing practitioner or clinical pharmacist documented in EHR 1160F 5. BMI 29.0-29.9,adult (Z68.29: Body mass index [BMI] 29.0-29.9, adult) BMI education given Ordered: ECG 12 Lead Adult [facility] [place] 6. Overweight (BMI 25.0-29.9) (E66.3: Overweight) see above Ordered: ECG 12 Lead Adult 7. Right hip pain (M25.551: Pain in right hip) pt had injection in right hip a few years ago and was pain free until a couple weeks ago. she is going to see education and training manager first. if hip continues to be a problem we will order x ray and pain management for injection Orders: potassium chloride, 20 mEq = 1 tab(s), Oral, Daily, # 90 tab(s), Refills(s) 1, Pharmacy: [facility]/pharmacy #[id number], 166, cm, 08/24/23 8:56:00 EDT, Height/Length [...] O (more content not included)... Normal [facility] Comment on above: Result Comment: Elec [...] What to do next Scheduled Follow-Up Appointments Thursday Aug. 8, 2024 1:00 PM EDT With: Where: [facility] [place] Normal [address] [id number] \.br\ Medications\.br\ What How Much When Why [...] choosing us for your care.\.br\ \.br\ [facility] BMPon 08-24-2023 Anion gap [Moles/Vol] 10 mmol/L Normal 6-16 [facility] Comment on above: Performed By: #### 2 522238, 3069923, [id number], [id number] ####[facility] [address] [place] [address] Calcium [Mass/Vol] 9.4 mg/dL Normal 8.9-11.1 [facility] Comment on above: Performed By: #### 2 836508, 0254934, [id number], [id number] ####[facility] [address] [place] [address] Chloride [Moles/Vol] 104 mmol/L Normal 101-111 [facility] Comment on above: Performed By: #### 2 339436, 8885823, [id number], [id number] ####[facility] [address] [place] [address] CO2 [Moles/Vol] 30 mmol/L Normal 21-31 [facility] Comment on above: Performed By: #### 2 391901, 2486258, [id number], [id number] ####[facility] [address] [place] [address] Creatinine [Mass/Vol] 0.7 mg/dL Normal 0.5-1.3 [facility] Comment on above: Performed By: #### 2 217803, 7941672, [id number], [id number] ####[facility] [address] [place] [address] Glucose [Mass/Vol] 79 mg/dL Normal 55-199 [facility] Comment on above: Performed By: #### 2 734659, 9305434, 82649177, [id number] ####[facility] [address] [place] [address] Potassium [Moles/Vol] 4.3 mmol/L Normal 3.5-5.3 [facility] Comment on above: Performed By: #### 2 811263, 2583256, 51296323, [id number] ####[facility] [address] [place] [address] Sodium [Moles/Vol] 140 mmol/L Normal 135-145 [facility] Comment on above: Performed By: #### 2 325804, 1211438, 28876324, [id number] ####[facility] [address] [place] [address] Urea nitrogen [Mass/Vol] 19 mg/dL Normal 5-21 [facility] Comment on above: Performed By: #### 2 325209, 3659324, 47074488, [id number] ####[facility] [address] [place] [address] Urea nitrogen/Creatinine [Mass ratio] 27 No Units High 10-20 [facility] Comment on above: Performed By: #### 2 849664, 6359097, 95935362, [id number] ####[facility] [address] [place] [address] CHEMISTRYOrdered By: SYSTEM SYSTEM on 08-24-2023 25-hydroxyvitamin [...] Metabolic Panel Iron Level Lab Specimen Collect 76343 Vitamin D 25 Hydroxy 3. Leg cramps (R25.2: Cramp and spasm) pt c/o leg cramps and feeling week will check electrolytes today Ordered: Basic Metabolic Panel Iron Level Lab Specimen Collect 85943 Vitamin D 25 Hydroxy 4. Non-smoker (Z78.9: Other specified health status) continue not smoking Ordered: Basic Metabolic Panel Iron Level Lab Specimen Collect 68162 Vitamin D 25 Hydroxy 5. BMI 30.0-30.9,adult (Z68.30: Body mass index [BMI] 30.0-30.9, adult) BMI education complete Ordered: Basic Metabolic Panel Iron Level Lab Specimen Collect 21707 Vitamin D 25 Hydroxy Orders: amoxicillin, See Instructions, TAKE 4 CAPSULES BY MOUTH 1/2 HOUR BEFORE PROCEDURE AND 2 CAPSULES 4 HOURS AFTER PROCEDURE, # 6 cap(s), Refills(s) 1, [id number], 166, cm, 03/16/23 9:10:00 EST, Height/Length Dosing, 85.6, kg, 03/16/23 9:10:00 EST, W... amoxicillin, See Instructions, TAKE 4 CAPSULES BY MOUTH 1/2 HOUR BEFORE PROCESURE AND 2 CAPSULES 4 HOURS AFTER, # 6 caplet(s), Refills(s) 1, Pharmacy: [facility]/pharmacy #[id number], 166, cm, 08/24/23 8:56:00 EDT, Height/Length Dosing, 84, kg, 08/24/23 8:56:00 EDT, Weight Dosing potassium chloride, 20 mEq = 1 tab(s), Oral, Daily, # 90 tab(s), Refills(s) 1, Pharmacy: [facility]/pharmacy #[id number], 166, cm, 08/24/23 8:56:00 EDT, Height/Length [...] arres (more content not included)... Normal [facility] Comment on above: Result Comment: Elec tronically Signed By: Sabina Ruth\.tato\Date and Time Signed: 08/24/23 13:06 EDT Ironon 08-24-2023 Iron [Mass/Vol] 63 microgram/dL Normal 35-153 [facility] Comment on above: Performed By: #### 2 254394, 3943083, [id number], [id number] ####[facility] [address] [place] [address] Patient Logson 08-24-2023 Patient Logs [id number] #1.00TIFF Normal [facility] Vitamin D 25 Hydroxyon 08-23 25-hydroxyvitamin D3 [Mass/Vol] 53.7 ng/mL Normal 30.0-100.0 [facility] Comment on above: Performed By: #### 2 829017, 0159298, 47823053, [id number] ####[facility] [address] [place] [address] eGFRon 08-24-2023 eGFR 87 mL/min/1.73 m2 Normal >=59 [facility] Comment on above: Order Comment: Order added by Discern Expert. Performed By: #### 2 363173, 8212861, [id number], [id number] ####[facility] [address] [place] [address] Nurse Consultation Noteon Nurse Consultation Note Reason [...] 03/16/2023 Recorded covid 19 vishal-sucrose SARS-CoV-2 (COVID-19) mRNAMUL.ORD![id number] 02/23/2022 Recorded influenza virus vaccine, inactivated 02/10/2022 [...] inactivated 03/06/2010 Recorded influenza, whole 02/05/2009 Recorded [facility] Immunization Recordson 03-18 Immunization Records [id number] #1.00TIFF [facility] Ambulatory Visit Summaryon 1 05-16-2022 Ambulatory Visit [...] Appointments Wednesday 9:00 AM EST With: Where: [facility] Invalid Interpretation Code [address] [place] [address]- \.br\ Wednesday 2:00 PM EDT \.br\ With:\.br\ Where: [facility] Family Medicine Office/Clini c Noteon 03-16-2023 Family [...] PROCEDURE, # 6 cap(s), Refills(s) 1, Pharmacy: [facility]/pharmacy #[id number], 166, cm, 03/16/23 9:10:00 EST, Height/Length Dosing, 85.6, kg, 03/16/23 9:10:00 EST, W... APAP/butalbital/caff eine, 1 tab(s), Oral, q4hr Headache, 30 tab(s), Refill(s) 0, [facility]/pharmacy #[id number], 166, cm, 03/16/23 9:10:00 EST, Height/Length [...] Immunizations Vaccine Date Status Comments SARS-CoV-2 (COVID-19) mRNAMUL.ORD![id number] 02/23/2022 Recorded influenza virus vaccine, inactivated 02/10/2022 Recorded SARSCoV2 mRNA(tozinamer-vishal- sucros) vac 11/12/2021 Recorded influenza virus vaccine, inactivated - Not Given Patient Refuses SARS-CoV-2 (COVID-19) mRNA BNT-162b2 vax 01/23/2021 Recorded 2022-11-25: TPV75 (more content not included)... Normal [facility] Comment on above: Result Comment: Elec tronically Signed By: Linda MAHAN, Sabina Hall\.br\Date and Time Signed: 03/16/23 10:17 EST Patient Logson 03-16-2023 Patient Logs [id number] #1.00TIFF Normal [facility] Patient Logson 03-09-2023 Patient Logs [id number] #1.00TIFF Normal [facility] CHEMISTRYOrdered By: SYSTEM SYSTEM on 02-02-2023 [...] rate/Area] 74 mL/min/1.73 m2 Normal >=59mL/min/1.73 m2 [facility] S Comment on above: Interpretive Data: [...] : DR BRITTANY FREEDMAN . Admission #: [id number] Family : Order #: [id number] CLICK HERE TO VIEW EXAM RADIOLOGY REPORT [...] colon cancer at age 69. LOCATION: [facility] BREAST COMPOSITION: Extremely dense, which lowers [...] MD on 12/19/2021 at 13:46 Normal [facility] CBC AUTO DIFFon 12-12-2021 BASO # 0.0 103/ul Normal 0.0-0.1 [facility] Comment on above: Performed By: #### C BC #### [facility] [address] [address] [address] Kaiser García Basophils/100 WBC (Bld) 0.3 % Normal 0.2-2.0 [facility] Comment on above: Performed By: #### C BC #### [facility] [address] [place] [address] Dr. Kaiser García EO # 0.1 103/ul Normal 0.0-0.7 [facility] Comment on above: Performed By: #### C BC #### [facility] [address] [place] [address] Dr. Kaiser García Eosinophils/100 WBC (Bld) 1.9 % Normal 0.9-7.0 [facility] Comment on above: Performed By: #### C BC #### [facility] [address] [place] [address] Dr. Kaiser García Erythrocyte distribution width (RBC) [Ratio] 13.9 % Normal 11.0-15.0 [facility] Comment on above: Performed By: #### C BC #### [facility] [address] [place] [address] Dr. Kaiser García Hematocrit (Bld) [Volume fraction] 38.5 % Normal 36.0-48.0 [facility] Comment on above: Performed By: #### C BC #### [facility] [address] [place] [address] Dr. Kaiser García Hemoglobin (Bld) [Mass/Vol] 12.0 g/dL Normal 12.0-16.0 [facility] Comment on above: Performed By: #### C BC #### [facility] [address] [place] [address] Dr. Kaiser García IG # 0.03 10e3/ul Normal 0.00-0.03 [facility] Comment on above: Performed By: #### C BC #### [facility] [address] [place] [address] Dr. Kaiser García IG % 0.4 % Normal 0.0-0.5 [facility] Comment on above: Performed By: #### C BC #### [facility] [address] [place] [address] Dr. Kaiser García LYMPH # 2.5 103/ul Normal 1.2-3.8 [facility] Comment on above: Performed By: #### C BC #### [facility] [address] [place] [address] Dr. Kaiser García Lymphocytes/100 WBC (Bld) 35.7 % Normal 20.5-60.0 [facility] Comment on above: Performed By: #### C BC #### [facility] [address] [place] [address] Dr. Kaiser García MANUAL DIFF REQ NO Normal [facility] Comment on above: Performed By: #### C BC #### [facility] [address] [place] [address] Dr. Kaiser García MCH (RBC) [Entitic mass] 28.5 pg Normal 26.7-34.0 [facility] Comment on above: Performed By: #### C BC #### [facility] [address] [place] [address] Dr. Kaiser García MCHC (RBC) [Mass/Vol] 31.2 g/dL Normal 29.9-35.2 [facility] Comment on above: Performed By: #### C BC #### [facility] [address] [place] [address] Dr. Kaiser García MCV (RBC) [Entitic vol] 91.4 fL Normal 81.0-99.0 [facility] Comment on above: Performed By: #### C BC #### [facility] [address] [place] [address] Dr. Kaiser García MONO # 0.6 103/ul Normal 0.3-0.8 [facility] Comment on above: Performed By: #### C BC #### [facility] [address] [place] [address] Dr. Kaiser García Monocytes/100 WBC (Bld) 8.7 % Normal 1.7-12.0 [facility] Comment on above: Performed By: #### C BC #### [facility] [address] [address] [address] Kaiser García NEUT # 3.7 103/ul Normal 1.4-6.5 [facility] Comment on above: Performed By: #### C BC #### [facility] [address] [address] [address] Kaiser García Neutrophils/100 WBC (Bld) 53.0 % Normal 43.0-75.0 [facility] Comment on above: Performed By: #### C BC #### [facility] [address] [address] [address] Kaiser García Platelet mean volume (Bld) [Entitic vol] 9.4 fL Critically low 9.5-13.5 [facility] Comment on above: Performed By: #### C BC #### [facility] [address] [place] [address] Dr. Kaiser García PLT 244 103/ul Normal 150-450 [facility] Comment on above: Performed By: #### C BC #### [facility] [address] [place] [address] Dr. Kaiser García RBC 4.21 106/ul Normal 4.20-5.40 [facility] Comment on above: Performed By: #### C BC #### [facility] [address] [place] [address] Dr. Kaiser García WBC 6.9 103/ul Normal 4.0-11.0 [facility] Comment on above: Performed By: #### C BC #### [facility] [address] [place] [address] Dr. Kaiser García PROF 14(COMP METB)on 022 Albumin [Mass/Vol] 3.6 g/dL Normal 3.4-5.0 [facility] Comment on above: Performed By: #### C ROBBY TSH ####[facility] [address] [address]Dr. Kaiser García Albumin/Globulin [Mass ratio] 1.1 {ratio} Normal [facility] Comment on above: Performed By: #### C MP, TSH ####[facility] [address] [id number]. Kaiser García ALP [Catalytic activity/Vol] 51 U/L Normal 46-116 [facility] Comment on above: Performed By: #### C MP, TSH ####[facility] [address] [id number]. Kaiser García ALT [Catalytic activity/Vol] 19 U/L Normal 14-59 [facility] Comment on above: Performed By: #### C MP, TSH ####[facility] [address] [id number]. Kaiser García Anion gap [Moles/Vol] 11.6 mmol/L Normal [facility] Comment on above: Performed By: #### C MP, TSH ####[facility] [address] [address]Dr. Kaiser García AST [Catalytic activity/Vol] 14 U/L Critically low 15-37 [facility] Comment on above: Performed By: #### C MP, TSH ####[facility] [address] [place], [place] [address]Dr. Kaiser García Bilirubin [Mass/Vol] 0.3 mg/dL Normal 0.2-1.0 [facility] Comment on above: Performed By: #### C MP, TSH ####[facility] [address] [place], [place] [address]Dr. Kaiser García Calcium [Mass/Vol] 9.0 mg/dL Normal 8.5-10.1 [facility] Comment on above: Performed By: #### C MP, TSH ####[facility] [address] [address]Dr. Kaiser García Chloride [Moles/Vol] 104 mmol/L Normal 98-107 [facility] Comment on above: Performed By: #### C MP, TSH ####[facility] [address] [id number]. Kaiser García CO2 [Moles/Vol] 28.4 mmol/L Normal 21.0-32.0 [facility] Comment on above: Performed By: #### C MP, TSH ####[facility] [address] [id number]. Kaiser García Creatinine [Mass/Vol] 0.73 mg/dL Normal 0.55-1.02 [facility] Comment on above: Performed By: #### C MP, TSH ####[facility] [address] [id number]. Kaiser García EGFR-AF CUBAN >60 Normal >=60 [facility] Comment on above: Performed By: #### C MP, TSH ####[facility] [address] [address]Dr. Kaiser García EGFR-NON AF CUBAN >60 Normal >=60 [facility] Comment on above: Performed By: #### C MP, TSH ####[facility] [address] [address]Dr. Kaiser García Globulin (S) [Mass/Vol] 3.4 g/dL Normal [facility] Comment on above: Performed By: #### C MP, TSH ####[facility] [address] [address]Dr. Kaiser García Glucose [Mass/Vol] 73 mg/dL Critically low 74-106 [facility] Comment on above: Performed By: #### C MP, TSH ####[facility] [address] [address]Dr. Kaiser García Potassium [Moles/Vol] 4.0 mmol/L Normal 3.5-5.1 [facility] Comment on above: Performed By: #### C MP, TSH ####[facility] [address] [id number]. Kaiser García Protein [Mass/Vol] 7.0 g/dL Normal 6.4-8.2 [facility] Comment on above: Performed By: #### C MP, TSH ####[facility] [address] [address]Dr. Kaiser García Sodium [Moles/Vol] 140 mmol/L Normal 136-145 [facility] Comment on above: Performed By: #### C MP, TSH ####[facility] [address] [place], [place] [address]Dg. Kaiser García Urea nitrogen [Mass/Vol] 23.0 mg/dL Critically high 7.0-18.0 [facility] Comment on above: Performed By: #### C MP, TSH ####[facility] [address] [place], [place] [address]Or. Kaiser García Urea nitrogen/Creatinine [Mass ratio] 31.5 mg/mg Normal [facility] Comment on above: Performed By: #### C MP, TSH ####[facility] [address] [id number]. Kaiser García TSHon 12-12-2021 TSH 1.112 uIU/mL Normal 0.358-3.740 [facility] Comment on above: Performed By: #### C MP, TSH ####[facility] [address] [id number]. Kaiser García XR CHEST 1 Von 12-04-2021 [...] Mesfin LIZ Date: 2021-12-03 23:19 Normal [facility] CBC AUTO DIFFon 12-03-2021 BASO # 0.0 103/ul Normal 0.0-0.1 [facility] Comment on above: Performed By: #### C BC #### [facility] [address] [address] [address] Kaiser García Basophils/100 WBC (Bld) 0.3 % Normal 0.2-2.0 [facility] Comment on above: Performed By: #### C BC #### [facility] [address] [address] [address] Kaiser García EO # 0.1 103/ul Normal 0.0-0.7 [facility] Comment on above: Performed By: #### C BC #### [facility] [address] [place] [address] Dr. Kaiser García Eosinophils/100 WBC (Bld) 1.0 % Normal 0.9-7.0 [facility] Comment on above: Performed By: #### C BC #### [facility] [address] [place] [address] Dr. Kaiser García Erythrocyte distribution width (RBC) [Ratio] 13.8 % Normal 11.0-15.0 [facility] Comment on above: Performed By: #### C BC #### [facility] [address] [place] [address] Dr. Kaiser García Hematocrit (Bld) [Volume fraction] 38.5 % Normal 36.0-48.0 [facility] Comment on above: Performed By: #### C BC #### [facility] [address] [place] [address] Dr. Kaiser García Hemoglobin (Bld) [Mass/Vol] 12.4 g/dL Normal 12.0-16.0 [facility] Comment on above: Performed By: #### C BC #### [facility] [address] [place] [address] Dr. Kaiser García IG # 0.01 10e3/ul Normal 0.00-0.03 [facility] Comment on above: Performed By: #### C BC #### [facility] [address] [place] [address] Dr. Kaiser García IG % 0.2 % Normal 0.0-0.5 [facility] Comment on above: Performed By: #### C BC #### [facility] [address] [place] [address] Dr. Kaiser García LYMPH # 2.0 103/ul Normal 1.2-3.8 [facility] Comment on above: Performed By: #### C BC #### [facility] [address] [place] [address] Dr. Kaiser García Lymphocytes/100 WBC (Bld) 32.4 % Normal 20.5-60.0 [facility] Comment on above: Performed By: #### C BC #### [facility] [address] [place] [address] Dr. Kaiser García MANUAL DIFF REQ NO Normal [facility] Comment on above: Performed By: #### C BC #### [facility] [address] [place] [address] Dr. Kaiser García MCH (RBC) [Entitic mass] 28.8 pg Normal 26.7-34.0 [facility] Comment on above: Performed By: #### C BC #### [facility] [address] [place] [address] Dr. Kaiser García MCHC (RBC) [Mass/Vol] 32.2 g/dL Normal 29.9-35.2 [facility] Comment on above: Performed By: #### C BC #### [facility] [address] [place] [address] Dr. Kaiser García MCV (RBC) [Entitic vol] 89.3 fL Normal 81.0-99.0 [facility] Comment on above: Performed By: #### C BC #### [facility] [address] [place] [address] Dr. Kaiser García MONO # 0.3 103/ul Normal 0.3-0.8 [facility] Comment on above: Performed By: #### C BC #### [facility] [address] [place] [address] Dr. Kaiser García Monocytes/100 WBC (Bld) 4.2 % Normal 1.7-12.0 [facility] Comment on above: Performed By: #### C BC #### [facility] [address] [place] [address] Dr. Kaiser García NEUT # 3.9 103/ul Normal 1.4-6.5 [facility] Comment on above: Performed By: #### C BC #### [facility] [address] [place] [address] Dr. Kaiser García Neutrophils/100 WBC (Bld) 61.9 % Normal 43.0-75.0 [facility] Comment on above: Performed By: #### C BC #### [facility] [address] [place] [address] Dr. Kaiser García Platelet mean volume (Bld) [Entitic vol] 10.1 fL Normal 9.5-13.5 [facility] Comment on above: Performed By: #### C BC #### [facility] [address] [place] [address] Dr. Kaiser García PLT 175 103/ul Normal 150-450 [facility] Comment on above: Performed By: #### C BC #### [facility] [address] [place] [address] Dr. Kaiser García RBC 4.31 106/ul Normal 4.20-5.40 [facility] Comment on above: Performed By: #### C BC #### [facility] [address] [place] [address] Dr. Kaiser García WBC 6.2 103/ul Normal 4.0-11.0 [facility] Comment on above: Performed By: #### C BC #### [facility] [address] [place] [address] Dr. Kaiser García PROF 14(COMP METB)on 022 Albumin [Mass/Vol] 3.6 g/dL Normal 3.4-5.0 [facility] Comment on above: Performed By: #### H DEEPALI, CMP #### [facility] [address] [place] [address] Dr. Kaiser García Albumin/Globulin [Mass ratio] 1.0 {ratio} Normal [facility] Comment on above: Performed By: #### H JAMIRPN, CMP #### [facility] [address] [place] [address] Dr. Kaiser García ALP [Catalytic activity/Vol] 54 U/L Normal 46-116 [facility] Comment on above: Performed By: #### H JAMIRPN, CMP #### [facility] [address] [place] [address] Dr. Kaiser García ALT [Catalytic activity/Vol] 17 U/L Normal 14-59 [facility] Comment on above: Performed By: #### H STROPN, CMP #### [facility] [facility] [address] [address] [address] Kaiesr García Anion gap [Moles/Vol] 15.4 mmol/L Normal [facility] Comment on above: Performed By: #### H STROPN, CMP #### [facility] [address] [place] [address] Dr. Kaiser García AST [Catalytic activity/Vol] 21 U/L Normal 15-37 [facility] Comment on above: Performed By: #### H STROPN, CMP #### [facility] [address] [place] [address] Dr. Kaiser García Bilirubin [Mass/Vol] 0.4 mg/dL Normal 0.2-1.0 [facility] Comment on above: Performed By: #### H STROPN, CMP #### [facility] [address] [place] [address] Dr. Kaiser García Calcium [Mass/Vol] 9.1 mg/dL Normal 8.5-10.1 [facility] Comment on above: Performed By: #### H STROPN, CMP #### [facility] [address] [place] [address] Dr. Kaiser García Chloride [Moles/Vol] 101 mmol/L Normal 98-107 [facility] Comment on above: Performed By: #### H STROPN, CMP #### [facility] [address] [place] [address] Dr. Kaiser García CO2 [Moles/Vol] 22.4 mmol/L Normal 21.0-32.0 [facility] Comment on above: Performed By: #### H STROPN, CMP #### [facility] [address] [place] [address] Dr. Kaiser García Creatinine [Mass/Vol] 1.19 mg/dL Critically high 0.55-1.02 [facility] Comment on above: Performed By: #### H STROPN, CMP #### [facility] [address] [place] [address] Dr. Kaiser García EGFR-AF CUBAN 53 mL/min/1.73m2 Critically low >=60 [facility] Comment on above: Performed By: #### H STROPN, CMP #### [facility] [address] [address] [address] Kaiser García EGFR-NON AF CUBAN 44 mL/min/1.73m2 Critically low >=60 [facility] Comment on above: Performed By: #### H STROPN, CMP #### [facility] [address] [address] [address] Kaiser García Globulin (S) [Mass/Vol] 3.5 g/dL Normal [facility] Comment on above: Performed By: #### H STROPN, CMP #### [facility] [address] [place] [address] Dr. Kaiser García Glucose [Mass/Vol] 220 mg/dL Critically high 74-106 T [facility] Comment on above: Performed By: #### H JAMIRPN, CMP #### [facility] [address] [place] [address] Dr. Kaiser Garcaí Potassium [Moles/Vol] 3.8 mmol/L Normal 3.5-5.1 [facility] Comment on above: Performed By: #### H STROPN, CMP #### [facility] [address] [place] [address] Dr. Kaiser García Protein [Mass/Vol] 7.1 g/dL Normal 6.4-8.2 [facility] Comment on above: Performed By: #### H STROPN, CMP #### [facility] [address] [place] [address] Dr. Kaiser García Sodium [Moles/Vol] 135 mmol/L Critically low 136-145 Th [facility] Comment on above: Performed By: #### H STROPN, CMP #### [facility] [address] [place] [address] Dr. Kaiser García Urea nitrogen [Mass/Vol] 22.0 mg/dL Critically high 7.0-18.0 [facility] Comment on above: Performed By: #### H STROPN, CMP #### [facility] [address] [place] [address] Dr. Kaiser García Urea nitrogen/Creatinine [Mass ratio] 18.5 mg/mg Normal [facility] Comment on above: Performed By: #### H DEEPALI, CMP #### [facility] [address] [place] [address] Dr. Kaiser García TROPONIN, HIGH SENSITIVITYon 12-03-2021 HSTROP 9.4 pg/mL Normal 4.0-51.3 [facility] Comment on above: Result Comment: CUT- OFF POINTS HAVE BEEN ESTABLISHED BASED ON THE FOURTH UNIVERSAL DEFINITIONS OF MYOCARDIAL INFARCTION. THE UPPER REFERENCE LIMIT (URL) OF TROPONIN, DEFINED THE 99TH PERCENTILE OF cTnI DISTRIBUTION IN A REFERENCE POPULATION, HAS BEEN CONFIRMED THE DECISION THRESHOLD FOR [place] DIAGNOSIS. Performed By: #### H DEEPALI, CMP #### [facility] [address] [place] [address] Dr. Kaiser García Covid-19 PCR (CVDTB)on 11-17 SARS-CoV-2 (COVID-19) RNA DANIEL+probe Ql (Unsp spec) Not detected Normal NOT DETECTED [facility] Comment on above: Result Comment: This test is not yet approved or cleared by the [place] FDA. When there are no FDA-approved or cleared tests available, and other criteria are met, FDA can make tests available under an emergency access mechanism called an Emergency Use Authorization (EUA). The EUA for this test is supported by the Fugitive Investigator of Health and Human Service's (HHS's) declaration [...] SARS-CoV-2. Performed By: #### C VDTBH #### [facility] [address] [place] [address] Dr. Kaiser García US ISABELLA DOP LEG [...] or seroma *Exam performed in accordance with [facility] practice guidelines- Peripheral venous ultrasound, July 13, 2009. 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 Facility:[facility] Start: 07-13-2024 ambulatory [facility] Start: 07-06-2024 End: 07-06-2024 Office outpatient visit 15 minutes Capo Acuña DPM Work Phone: [facility] Comment on above: Onychomycosis (Prima ry Dx); Corns and callosities; Other specified peripheral vascular diseases (CMS/HCC); Pain in both feet; Peripheral vascular disease (CMS/HCC); Plantar fasciitis Start: 07-06-2024 End: 07-06-2024 ambulatory CAPO ACUÑA Not Available Start: 05-11-2024 End: 05-11-2024 ambulatory [facility] Start: 05-03-2024 End: 05-03-2024 Hunterboo flowsheet Capo Acuña DPM Work Phone: [facility] Start: 05-03-2024 End: 05-03-2024 Hunterboo flowsadonay Acuña DPM Work Phone: [facility] Start: 05-03-2024 End: 05-03-2024 Patient encounter procedure Capo Acuña DPM Work Phone: [facility] Comment on above: Onychomycosis (Prima ry Dx); Corns and callosities; Other specified peripheral vascular diseases (CMS/HCC) Start: 05-03-2024 End: 05-03-2024 ambulatory CAPO ACUÑA Not Available Start: 04-10-2024 End: 04-10-2024 ambulatory [facility] Start: 02-24-2024 End: 02-24-2024 Lab Drop off [facility]ina L [facility] Start: 02-24-2024 End: 02-24-2024 ambulatory BET TAKER Sabina L Linda Facility:[facility] Start: 02-23-2024 End: 02-23-2024 Bamboo flowsheet Capo Acuña DPM Work Phone: [facility] Start: 02-23-2024 End: 02-23-2024 Bamboo flowsheet Capo Acuña DPM Work Phone: [facility] Start: 02-23-2024 End: 02-23-2024 Patient encounter procedure Capo Acuña DPM Work Phone: [facility] Comment on above: Onychomycosis (Prima ry Dx); Corns and callosities; Other specified peripheral vascular diseases (CMS/HCC); Pain in both feet Start: 02-23-2024 End: 02-23-2024 ambulatory CAPO ACUÑA Not Available Start: 02-15-2024 End: 02-15-2024 ambulatory MONICA RODRÍGUEZ Facility:[facility] [place] Start: 12-24-2023 End: 12-24-2023 ambulatory BET TAKER Sabina L Linda Facility:[facility] [place] Start: 12-22-2023 End: 12-22-2023 Bamboo flowsheet Capo Acuña DPM Work Phone: [facility] Start: 12-22-2023 End: 12-22-2023 Bamboo flowsheet Capo Acuña DPM Work Phone: [facility] Start: 12-22-2023 End: 12-22-2023 Patient encounter procedure Capo Acuña DPM Work Phone: [facility] Comment on above: Onychomycosis (Prima ry Dx); Pain in both feet; Corns and callosities; Other specified peripheral vascular diseases ([facility] Start: 12-22-2023 End: 12-22-2023 ambulatory CAPO ACUÑA Not Available Start: 12-03-2023 End: 12-03-2023 ambulatory BET TAKER Sabina L Linda Facility:[facility] Start: 12-02-2023 End: 12-02-2023 ambulatory BET TAKER [facility]ina L [facility] Start: 10-18-2023 End: 10-18-2023 ambulatory CAPO ACUÑA Not Available Start: 08-24-2023 End: 08-24-2023 Lab Drop off [facility]ina L [facility] Start: 08-24-2023 End: 08-24-2023 ambulatory BET TAKER Sabina L Linda Facility[facility] Start: 08-12-2023 End: 08-12-2023 ambulatory CAPO ACUÑA Not Available Start: 03-23-2023 End: 03-23-2023 ambulatory BET TAKER Sabina L Linda Facility:[facility] Start: 03-16-2023 End: 03-16-2023 ambulatory BET TAKER Sabina L Linda Facility:[facility] Start: 02-02-2023 End: 02-02-2023 Lab Drop off Sabina L [facility] Start: 06-05-2022 End: 06-18-[address] BRITTANY FREEDMAN . Facility: Start: 12-24-2021 End: 12-24-[address] BRITTANY [...] Treatment Date Care Activity Detail Author Start: 11-15-2024 End: 11-15-2024 Patient encounter procedure 11/15/2024 8:15 AM EDT Procedure Visit [facility] [address] [place] [id number] Capo Acuña, DPM [address] [place] [address] [facility] Start: 09-12-2024 End: 09-12-2024 Patient encounter procedure 09/12/2024 9:15 AM EDT Procedure Visit [facility] [address] [place] [address] Capo Acuña, DPM [address] [place] [address] [facility] Start: 09-06-2024 End: 09-06-2024 Patient encounter procedure 09/06/2024 10:15 AM EDT Procedure Visit [facility] [address] [place] [address] Capo Acuña, DPM [address] [place] [address] [facility] Start: 07-06-2024 End: 07-06-2024 Patient encounter procedure 07/06/2024 8:00 AM EDT Procedure Visit [facility] [address] [place] [address] Capo Acuña, DPM [address] [place] [address] [facility] Start: 07-03-2024 End: 07-03-2024 Patient encounter procedure 07/03/2024 10:15 AM EDT Procedure Visit [facility] [address] [place] [id number] Capo Acuña, DPM [address] [place] [address] [facility] Start: 05-03-2024 End: 05-03-2024 Patient encounter procedure 05/03/2024 9:00 AM EST [facility] [address] [place] [address] Capo Acuña, DPM [address] [place] [address] Arrived [facility] Comment on above: Arrived Start: 04-27-2024 End: 04-27-2024 Patient encounter procedure 04/27/2024 10:45 AM EST [facility] [address] [place] [address] Capo Acuña, DPM [address] [place] [address] [facility] Start: 02-23-2024 End: 02-23-2024 Patient encounter procedure [facility] Comment on above: Arrived Start: 12-22-2023 End: 12-22-2023 Patient encounter procedure 12/22/2023 10:00 AM EDT Procedure Visit [facility] [address] [place] [address] Capo Acuña, DPM [address] [place] [address] Arrived [facility] Comment on above: Arrived Start: 12-19-2023 Influenza vaccination Influenza Vacc ine (#1) [facility] Immunizations Immunization Date Immunization Notes Care Provider Fa cili 03-17-2024 influenza virus vaccine, unspecified formulation Capo Acuña DPM Work Phone: [facility] 03-16-2023 SARS-CoV-2 mRNA (tozinameran 5y-11y) vaccine Sabina Linda [facility] Comment on above: Result Comment: covi d 19 vishal-sucrose 02-26-2023 influenza virus vaccine, unspecified formulation Capo Acuña DPM Work Phone: [facility] 02-23-2022 SARS-CoV-2 (COVID-19 ) [id number] Sb[address] [facility] 02-10-2022 influenza virus vaccine, unspecified formulation Sabina Linda [facility] 11-12-2021 SARS-CoV-2 mRNA (mcfmxeuiqdh-trkk-ykgms se) vaccine Sabina Linda [facility] 01-23-2021 SARS-CoV-2 (COVID-19 ) mRNA BNT-162b2 vax Sabina Linda [facility] Comment on above: Result Comment: 2022: [id number] 06-12-2020 SARS-CoV-2 (COVID-19 ) mRNA BNT-162b2 vax Sabina Linda [facility] Comment on above: Result Comment: 2022: [id number] 05-22-2020 SARS-CoV-2 (COVID-19 ) mRNA BNT-162b2 vax Sabina Linda [facility] Comment on above: Result Comment: 2022: [id number] 01-26-2020 influenza virus vaccine, unspecified formulation Sabina Linda [facility] 04-19-2019 pneumococcal conjuga te vaccine, [address] [facility] 02-23-2019 influenza virus vaccine, unspecified formulation Sabina Linda [facility] 05-25-2018 pneumococcal polysaccharide vaccine, [address] [facility] 02-15-2018 influenza virus vaccine, unspecified formulation Sabina Linda [facility] 02-24-2017 influenza virus vaccine, unspecified formulation Sabina Linda [facility] 03-06-2016 pneumococcal conjuga te vaccine, [address] [facility] 02-20-2016 influenza virus vaccine, unspecified formulation Sabina Linda [facility] 02-20-2014 influenza virus vaccine, unspecified formulation Sabina Linda [facility] 02-22-2013 influenza virus vaccine, unspecified formulation Sabina Linda [facility] 03-06-2010 influenza virus vaccine, unspecified formulation Sabina Linda [facility] 02-05-2009 influenza, whole Sabina Linda [facility] NEGATED: Highlighted row has not occurred!07-01-2021 influenza virus vaccine, unspecified formulation Sabina Linda [facility] [place] Payers Date Payer Category Payer Private Health Insurance [employer] [id number] 2020 Unknown [id number]. [id number] 2007 Medicare [id number] [id number]. [id number] 1959 Medicare [id number] 1959 Unknown [id number] 1942 Unknown [id number] 2.16.840.1.361337.3.579.2. 593 1942 Unknown [id number] 2.16.840.1.269590.3.579.2. 593 1942 Unknown [id number] 2.16.840.1.556646.3.579.2. 593 1942 Unknown [id number] 2.16.840.1.679168.3.579.2. 593 1942 Unknown [id number] 2.16.840.1.896691.3.579.2. 593 1942 Unknown [id number] 2.16.840.1.859465.3.579.2. 593 1942 Unknown [id number] 2.16.840.1.236207.3.579.2. 593 1942 Unknown [id number] 2.16.840.1.587531.3.579.2. 593 1942 Unknown [id number] 2.16.840.1.106298.3.579.2. 593 1942 Unknown [id number] 2.16.840.1.931673.3.579.2. 593 1942 Unknown [id number] 2.16.840.1.706131.3.579.2. 727 1942 Unknown [id number] 2.16.840.1.171298.3.579.2. 72 1942 Unknown [id number] 2.16.840.1.844927.3.579.2. 1942 Unknown [id number] 2.16.840.1.912849.3.579.2. 1942 Unknown [id number] 2.16.840.1.403959.3.579.2. 1942 Unknown [id number] 2.16.840.1.465856.3.579.2. 1942 Unknown [id number] 2.16.840.1.931021.3.579.2. 1942 Unknown [id number] 2.16.840.1.089063.3.579.2. 1942 Unknown [id number] 2.16.840.1.196072.3.579.2. 1942 Unknown [id number] 2.16.840.1.805704.3.579.2. 1942 Unknown [id number] 2.16.840.1.163502.3.579.2. 1942 Unknown [id number] 2.16.840.1.731449.3.579.2. 196 1942 Unknown [id number] 2.16.840.1.191415.3.579.2. 196 1942 Unknown [id number] 2.16.840.1.957775.3.579.2. 1259 1942 Unknown [id number] 2.16.840.1.581635.3.579.2. 125 1942 Unknown [id number] 2.16.840.1.556794.3.579.2. 125 1942 Unknown [id number] 2.16.840.1.338799.3.579.2. 125 1942 Unknown [id number] 2.16.840.1.132101.3.579.2. 1259 1942 Unknown [id number] 2.16.840.1.697867.3.579.2. 1259 1942 Unknown [id number] 2.16.840.1.520353.3.579.2. 727 Social History Date Type Detail Facility Start: 11-03-2022 End: 02-02-2023 Tobacco smoking status Never smoked tobacco (finding) [facility] Comment on above: never Tobacco smoking status Never [facility] Comment on above: never Start: 12-22-2023 End: 07-06-2024 Sex Assigned At Female [facility] Start: 11-03-2022 Tobacco use and exposure Smokeless tobacco non-user [facility] Start: 12-22-2023 End: 07-06-2024 Alcoholic beverage intake Lifetime non-drinker (finding) [facility] Start: 12-22-2023 End: 07-06-2024 History of Social function [facility] Start: 01-13-2023 Alcohol Comment caffeine intak e: 2-3 cups per day coffee,chocolate [facility] Start: 1940 Sex assigned at Not on file [facility] Medical Equipment Procedure Code Equipment Code Equipment Origin al Text Equipment Identifier Dates CATARACT EXTRACT ION W/ INTRAOCULAR LENS Alessia Moseley DOnathan 04/30/20 Non Biological Eye L [id number] [facility] Start: 04-30-2020 CATARACT EXTRACT ION W/ INTRAOCULAR LENS Pradip HUNT Fredy 05/14/20 Non Biological Eye R [id number] [facility] Start: 05-14-2020 Clinical Notes 08-20-2021 to 07-06-2024 Capo Acuña DPM - 07/06/2024 8:00 AM Carmel Acuña DPM - 05/03/2024 9:00 AM Shyann Acuña DPM - 02/23/2024 9:15 AM Shyann Acuña DPM - 12/22/2023 10:00 AM EDT Note Date & Type Note Facility 07-06-2024 History of Present illness Narrative Images from the original note were not included. HPI: Diabetic/Routine Nail Care: Patient presents in office [...] clipping nails. History of ulcers/wounds: no. PCP: Bala Guillory MD Date of Last visit 12/23/23 Aggravated by: shoe gear, pressure. Risk factors: curvature of nails. Patient is also having pain to the right heel for the past 5-6 weeks. She has tried some stretching and states that it is getting slightly better. Examination: General Examination: GENERAL EXAMINATION: awake, aware of surroundings, in no acute distress. FOOT EXAM: Date of Last Foot Exam 06/20/24 Vascular: DORSALIS PEDIS PULSE: 2/4, bilaterally. POSTERIOR [...] through 5 bilateral. PAIN ELICITED WITH PALPATION OF: There is pain noted with palpation to the right heel at the plantar medial tubercle of the calcaneus. There is pain to palpation of the medial band of the plantar fascia. No pain noted with compression of the calcaneus or to palpation of the Achilles tendon right. No pain with palpation along the course of the posterior tibial tendon MUSCLE STRENGTH5/5 for all pedal groups tested. Assessment: 1. Foot pain, left - M79.672 (Primary) 2. Dermatophytosis of nail - B35.1 3. Foot pain, right - M79.671 4. Porokeratosis - Q82.8 5. Corns and callosities - L84 6. Hammertoe, right - M20.41 7. Hammertoe, left - M20.42 8. Plantar Fasciitis right Plan: 1. All mycotic and/or dystrophic nails were debrided in length and thickness by manual and mechanical means. 2. Advised patient of proper foot care to prevent any future complications including daily monitoring of the feet. 3. RTC: 9-12 weeks or as needed if problems arise as patient would like to continue to come in for routine nail care appointments to prevent future pain and problems developing from the overgrowth of the toenails. Callous: 1. Hyperkeratosis/porokeratosis as above noted was debrided. 2. Instructed patient on use of aperture pads or Silipos padding/toe spacers to prevent rubbing and continued development of the hyperkeratosis. 3. Also discussed use of moisturizing creams for overall increased hydration to the skin. 4. Discussed continued use of proper foot gear to avoid excess pressure over the callous site. Plantar Fasciitis: I reviewed the patients condition, eitiology, options for care treatment plan and prognosis including shoe gear changes, stretching, physical therapy, immobilization, night splints and anti-inflammatories. We have three clinical objectives to reduce inflammatory process and expedite repair of the Plantar fascia, re-establish biomechanical function of the foot in relation to the Achilles tendon and re-establish appropriate strength, range of motion and tolerance to normal gait forces relative to standing, walking, and running. Our goal is for the condition and symptoms to not advance to becoming chronic or recalcitrant. 1. Patient advised to perform stretching exercises, icing, and to make appropriate shoe gear changes to include wearing athletic-type shoes with supportive insoles. No barefoot walking. Also demonstrated to patient the instructions on how to correctly perform the stretching of the Achilles tendon/calf stretches, and the heel spur/plantar fasciitis regimen and patient instructions were given. 2. Discussed with the patient OTC insoles including Powerstep which patient can purchase today if interested. Patient advised that these modalities used in conjunction are able to alleviate most symptoms from this condition. 3. RTC: 4 weeks. Discussed next step of steroid injection, custom FO, therapy if needed. documented in this encounter [facility] 05-11-2024 Note [facility] Cardiology Clinic Note Chief Complaint: Here to discuss the results of testing HPI: Nori Quezada is a 83 y.o. [...] are negative. Past Medical History She has a past medical history of Hypertension. Surgical History She has a past surgical history that includes Replacement total hip oncologic; Appendectomy; Cholecystectomy; and Replacement total knee oncologic. Social History She reports that she has never smoked. She has never used smokeless tobacco. She reports current alcohol use. No history on file for drug use. Family History Family History Problem Relation Name Age of Onset No Known Problems Mother No Known Problems Father Allergies Cefuroxime Medications Current Outpatient Medications: alendronate (Fosamax) 70 mg tablet, Take 70 mg by mouth every 7 (seven) days., Disp: , Rfl: colestipol (Colestid) 1 gram tablet, Take 1 g by mouth in the morning., Disp: , Rfl: hydroCHLOROthiazide (Microzide) 12.5 mg capsule, Take 25 mg by mouth in the morning., Disp: , Rfl: Klor-Con M20 20 mEq ER tablet, Take 20 mEq by mouth in the morning., Disp: , Rfl: losartan (Cozaar) 25 mg tablet, Take 25 mg by mouth two times daily., Disp: , Rfl: Last Recorded Vitals BP 133/75 HR 70 O2 97% Wt 187 Physical Examination: GENERAL: alert and oriented x3, [...] sinus arrhythmia, incomplete right bundle branch block Echocardiogram 04/24/2024: Global left ventricular systolic function is 60 to 65%, mild left ventricular hypertrophy, normal right ventricular size and systolic function. Mild to moderate aortic valve regurgitation. Moderate pulmonary hypertension; RVSP 46 mmHg. Severely dilated left atrium. Stress test 04/28/2024: No significant EKG changes suggesting ischemia, PVCs Olivares treadmill score is 5 portends low risk for angiographically significant coronary disease Normal nuclear medicine myocardial perfusion scan Assessment: Shortness of breath on exertion - non cardiac Fatigue History of hypertension - uncontrolled Dyslipidemia Carotid stenosis less than 50% Mild to moderate aortic valve regurgitation Moderately elevated right ventricular systolic pressure (46 mmHg) Plan: Reassurance She will need serial monitoring for her carotid stenoses; I discussed with her the need for secondary preventive measures in the form of aspirin and a statin Fasting lipid profile and liver function tests in 3 months I would recommend investigations for potential pulmonary etiologies. This can be discussed with her primary care providers. If no plausible pulmonary etiologies are found, and she continues to be short of breath, we will consider treating her for presumed diastolic dysfunction given the elevated RVSP and enlarged atria. We can consider addition of a diuretic plus or minus an SGLT2 inhibitor at her next visit. I would encourage continued physical activity; she can participate in cardiac rehabilitation if she wishes. However, she has no current ca (more content not included)... [facility] [facility] 05-03-2024 History of Present illness Narrative Images from the original note were not included. HPI: Diabetic/Routine Nail Care: Patient presents in office [...] gear, pressure. Risk factors: curvature of nails. Examination: General Examination: GENERAL EXAMINATION: awake, aware of surroundings, in no acute distress. FOOT EXAM: Date of Last Foot Exam 05/03/24 Vascular: DORSALIS PEDIS PULSE: 2/4, bilaterally. POSTERIOR [...] MUSCLE STRENGTH5/5 for all pedal groups tested. Assessment: 1. Foot pain, left - M79.672 (Primary) 2. Dermatophytosis of nail - B35.1 3. Foot pain, right - M79.671 4. Porokeratosis - Q82.8 5. Corns and callosities - L84 6. Hammertoe, right - M20.41 7. Hammertoe, left - M20.42 Plan: 1. All mycotic and/or dystrophic nails were debrided in length and thickness by manual and mechanical means. 2. Advised patient of proper foot care to prevent any future complications including daily monitoring of the feet. 3. RTC: 9-12 weeks or as needed if problems arise as patient would like to continue to come in for routine nail care appointments to prevent future pain and problems developing from the overgrowth of the toenails. Callous: 1. Hyperkeratosis/porokeratosis as above noted was debrided. 2. Instructed patient on use of aperture pads or Silipos padding/toe spacers to prevent rubbing and continued development of the hyperkeratosis. 3. Also discussed use of moisturizing creams for overall increased hydration to the skin. 4. Discussed continued use of proper foot gear to avoid excess pressure over the callous site. documented in this encounter [facility] 04-10-2024 Note [facility] Cardiology Clinic Note Chief Complaint: New patient [...] after testing. Ian Sims MD, MPH, FACC, [facility], [facility] Interventional Cardiology Pager Email: [email or web address] 02-23-2024 History of Present illness Narrative [...] the callous site. documented in this encounter [facility] 02-15-2024 Note Patient Education Immunology [...] and dust often. General instructions ??? Take yelv-krt-dirtlns and prescription medicines only as told by your doctor. ??? Drink enough fluid to keep your pee pale yellow. Where to find more information ??? [employer]: aaaai.org [...] provider. Document Revised: 12/14/2022 Document Reviewed: 12/14/2022 [employer] Patient Education ? 2023 [employer]. [facility] 12-22-2023 History of Present illness Narrative Images [...] the callous site. documented in this encounter [facility] 12-03-2023 Note Patient Education Cardiovascular [...] (148 mL), (more content not included)... [facility] 09-24-2021 Note OPERATIVE NOTE OPERATION DATE: 09/24/2021 [...] the pathology report. CC: Brittany Freedman M.D. [facility] Signed and Approved by: DR LAMAR SEXTON . 09/25/2021 12:58:00 [facility] 08-20-2021 Note OPERATIVE NOTE OPERATION DATE: 08/20/2021 [...] after different prep. CC: Brittany Freedman M.D. [facility] Signed and Approved by: DR LAMAR SEXTON . 08/21/2021 07:27:00 [facility] Evaluation + Plan note Future Appointments Appointment Date:03/16/2023 09:00:00 AM Scheduled Provider:Sabina Ruth Location:[facility] Appointment Type: Open Appointment Date:12/03/2023 02:00:00 PM Scheduled Provider: Location:[facility] Appointment Type: Medicare Wellness Subsequent [facility] Evaluation + Plan note Future Appointments Appointment Date:11/25/2023 01:00:00 PM Scheduled Provider: Location:[facility] Appointment Type:FM Medicare Wellness Subsequent Appointment Date:02/24/2024 10:00:00 AM Scheduled Provider:Sabina Ruth Location:[facility] Appointment Type: Open [facility] Evaluation + Plan note Future Appointments Appointment Date:12/07/2024 11:00:00 AM Scheduled Provider: Location:[facility] Appointment Type:FM Medicare Wellness Subsequent [facility] Evaluation note Diagnosis Onychomycosis- Primary Dermatophytosis of nail Corns and callosities Other specified peripheral vascular diseases (CMS/HCC) Pain in both feet [facility] Diagnosis Onychomycosis- Primary Dermatophytosis of nail Pain in both feet Corns and callosities Other specified peripheral vascular diseases (CMS/HCC) [facility] Diagnosis Onychomycosis- Primary Dermatophytosis of nail Corns and callosities Other specified peripheral vascular diseases (CMS/HCC) [facility] Diagnosis Onychomycosis- Primary Dermatophytosis of nail Corns and callosities Other specified peripheral vascular diseases (CMS/HCC) Pain in both feet Peripheral vascular disease (CMS/HCC) Unspecified peripheral vascular disease Plantar fasciitis Plantar fascial fibromatosis documented in this encounter [facility] Narrative No data available for this section [facility] No data available for this section [facility] No data available for this section [facility] Summary Purpose Family History No [...] content) DATE CREATED AUTHOR 07/25/2022 [facility] p[facility] DATE CREATED AUTHOR AUTHOR'S ORGANIZ ATION 02/25/2024 [facility] DATE CREATED AUTHOR AUTHOR'S ORGANIZ ATION 02/26/2024 [facility] DATE CREATED AUTHOR AUTHOR'S ORGANIZ ATION 05/08/2024 [facility] DATE CREATED AUTHOR AUTHOR'S ORGANIZ ATION 07/02/2024 [facility] DATE CREATED AUTHOR AUTHOR'S ORGANIZ ATION 07/08/2024 [facility] EPIC DATE CREATED AUTHOR AUTHOR'S ORGANIZ ATION 07/13/2024 [facility] Patient Care team informatio n (unrecognized section and content) Emt Intermediate Relationship Specialty Start Date End Date Awais Guillory MD [address] [place] [address] PCP - General Family Medicine 01/27/23 Emt Intermediate Relationship Specialty Start Date End Date Awais Guillory MD [address] [place] [facility] [place] [address] PCP - General Family Medicine 01/27/23 Emt Intermediate Relationship Specialty Start Date End Date Awais Guillory MD PCP - General Family Medicine 01/27/23 Emt Intermediate Relationship Specialty Start Date End Date Awais Guillory MD PCP - General Family Medicine 01/27/23 Emt Intermediate Relationship Specialty Start Date End Date Awais Guillory MD [address] [place] [address] PCP - General Family Medicine 01/27/23 Emt Intermediate Relationship Specialty Start Date End Date Awais Guillory MD [address] [place] [address] PCP - General Family Medicine 01/27/23 Emt Intermediate Relationship Specialty Start Date End Date Awais Guillory MD [address] [place] [address] PCP - General Family Medicine 01/27/23 FOR [...] BE BASED ON THE PRIMARY CLINICAL RECORDS. [facility] [facility]. provides no warranty or guarantee of the accuracy or completeness of information in this document.
== END 2024-07-14 09:56 | disposition home or self-care (01) ==
LOC: US 09:56
PROVIDERS: PCP Nurse Practitioner; Visit Provider Nurse Practitioner
DX: R22.1 Localized swelling, mass and lump, neck (principal)
CPT/HCPCS: 76536

== ENCOUNTER 2024-11-28 10:51 | Outpatient (OUT) | payer MEDICARE, OTHER, SELFPAY ==
--- OUTSIDE RECORDS SUMMARY | 2024-11-14 10:20 | XMS_ITS | Encounter Summary ---
Author Organization [facility] Address [address] [place] [address] Care Team Providers Care Newspaper Photo Editor Name Role Phone LindaAlessiadi PASTE PLANT SUPERVISOR-Kelsey Primary Care Provider [phone] Encounter Details Date Type Department Care Team (Late st Contact Info) Description 11/14/2024 10:20 AM EDT Office Visit [facility] [address] [place] [address] Alfredito Lepe, PHARMACY CUSTOMER CARE SPECIALIST [address] [place] [address] Primary hypertension (Primary Dx); Nonrheumatic aortic valve insufficiency; Carotid stenosis, bilateral; Mixed hyperlipidemia Social History Tobacco Use Types Packs/Day Years Used Date Smoking Tobacco: Never Smokeless Tobacco: Never Alcohol Use Standard Drinks/Week Comments Yes 0 (1 standard drink = 0.6 oz pur e alcohol) occasionally Comments Unknown Sex and Gender Information Value Date Recorded Sex Assigned at Female 11/14/2024 10:13 AM EDT Legal Sex Female 8:56 AM EST Gender Identity Female 11/14/2024 10:13 AM EDT Sexual Orientation Heterosexual or Straight 10/18 10:13 AM EDT documented as of this encounter Last Filed Vital Signs Vital Sign Reading Time Taken Comments Blood Pressure 155/57 11/14/2024 10:16 AM EDT Pulse 72 11/14/2024 10:16 AM EDT Temperature - - Respiratory Rate - - Oxygen Saturation 93% 11/14/2024 10:16 AM EDT Inhaled Oxygen Concentration - - Weight 83.5 kg (184 lb) 11/14/2024 10:16 AM EDT Height 170.2 cm (5' 7 ) 11/14/2024 10:16 AM EDT Body Mass Index 28.82 11/14/2024 10:16 AM EDT documented in this encounter Progress Notes * Alfredito Lepe, JANET - 11/14/2024 10:20 AM EDT Images from the original note were not included. SUBJECTIVE Reason for Visit: Nori Quezada is a 84 y.o. year old female patient being seen for 6-month follow-up visit. HPI: Nori Quezada is a 84 y.o. year old female with significant medical history of aortic valve insufficiency, carotid stenosis, and hypertension. 11/14/2024 office visit: Patient is seen and evaluated in the office today. She reports that her shortness of breath is no longer a problem. Last year she can only walk about half a block before needing to take a rest due toshortness of breath, and now she can do her groceries for example without any shortness of breath. Otherwise, she denies chest pain, shortness of breath, palpitations, lightness dizziness, or lower extremity edema. 05/11/2024 office visit (Dr. Sims): Nori Quezada is a 83 y.o. female [...] gastroesophageal reflux disease, dyslipidemia, migraine headaches, overweight Medical History[1] Surgical History[2] Problem List[3] family history includes No Known Problems in her father and mother. Social History[4] OBJECTIVE Visit Vitals Smoking Status Never Physical Exam Constitutional: General Appearance: well-developed, appears stated age. Level of Distress: no acute distress. Neck: Jugular Veins: normal jugular venous pressure. Lungs: Auscultation: no rales or rhonchi and normal breath sounds. Cardiovascular: Rate And Rhythm: regular Heart Sounds: normal S1 and s2; Systolic Murmur: not heard. Diastolic Murmur: not heard. Extremities: no edema Peripheral Pulses: Pulses: full and equal in all extremities except if noted. Abdomen: Inspection and Palpation: non distended or tender and soft. Musculoskeletal: Inspection: no joint tenderness or swelling. Neurologic: Gait: normal gait. Psychiatric: Mental Status: alert and normal affect. Skin: Inspection and Palpation: warm and dry. Allergies: Allergies[5] Outpatient Medications: Current Outpatient Medications Medication Instructions alendronate (FOSAMAX) 70 mg, oral, Every 7 days aspirin 81 mg, oral, Daily atorvastatin (LIPITOR) 40 mg, oral, Daily colestipol (COLESTID) 1 g, oral, Daily hydroCHLOROthiazide (MICROZIDE) 25 mg, oral, Every morning Klor-Con M20 20 mEq ER tablet 20 mEq, oral, Daily losartan (COZAAR) 25 mg, oral, 2 times daily Recent Labs: No visits with results within 6 Month(s) from this visit. Latest known visit with results is: No results found for any previous visit. Labs 07/03/2024: ALT 25, AST 18 LDL 36, HDL 67, triglycerides 36, total cholesterol 110 Labs 02/24/2024: Cholesterol 166, triglycerides 102, HDL 55, LDL 92 TSH normal at 1.56 I have personally reviewed and anaylzed the following laboratory results above. These findings havebeen analyzed in the context of the patient's clinical presentation. Cardiovascular Diagnostic Studies: Stress test 04/28/2024: No significant EKG changes suggesting ischemia, PVCs Olivares treadmill score is 5 portends low risk for angiographically significant coronary disease Normal nuclear medicine myocardial perfusion scan TTE 04/24/2024: Conclusion: Mild concentric left ventricle hypertrophy Normal left ventricular function without wall motion abnormalities, ejection fraction 60 to 65% Normal right ventricular size and systolic function Mild to moderate aortic insufficiency Trace tricuspid regurgitation and trace mitral regurgitation Moderate pulmonary hypertension, RVSP 46 mmHg Severely dilated left atrium Carotid ultrasonography 12/07/2023: Less than 50% stenosis bilateral carotid arteries. Vertebral arteries are patent and demonstrate antegrade flow. Chest x-ray 02/24/2024: Stable chest. No consolidating infiltrate suggest pneumonia 12 Lead ECG: No results found for this or any previous visit (from the past 4464 hours). I have personally reviewed and analyzed all available cardiac diagnostic tests and imaging reports.Findings have been analyzed in the context of the patient's clinical status. Assessment and Plan #Hypertension Blood pressure today is 155/57 Elevated - Continue hydrochlorothiazide 25 mg - On losartan 25 mg twice daily ---> increase to 50 mg #Dyspnea on exertion Resolved, denies Patient reports she can walk and do groceries without any shortness of breath, previously (last year) she can only walk about half a block #Aortic valve insufficiency Mild to moderate aortic regurgitation per TTE (04/24/2024) - Continue routine monitoring with repeat TTE in 1-2 years or sooner if symptoms (dyspnea, fatigue)develop - Optimize blood pressure control #Carotid stenosis Bilateral <50% carotid stenosis per duplex (12/07/2023) - vertebral arteries patent with antegrade flow - continue secondary stroke prevention per AHA/ASA guidelines - Continue aspirin 81 mg daily - Continue atorvastatin 40 mg daily - Continue colestipol 1 g daily - Repeat carotid ultrasound in every 2-3 years for surveillance or sooner if symptoms occur / risk factors not controlled - Reinforce lifestyle modifications: BP <130/80, tobacco cessation, diabetes control, and exercise #Hypertension Blood pressure today is 155/57 Elevated - Continue hydrochlorothiazide 25 mg - On losartan 25 mg twice daily ---> increase to 50 mg daily #Hyperlipidemia Most recent labs reviewed, 07/03/2024: LDL 36, HDL 67, triglycerides 36, total cholesterol 110 Stable, well-controlled - Continue atorvastatin 40 mg daily Plan Overview: Follow-up in 3 months We will increase losartan to 50 mg BMP No follow-ups on file. Alfredito Lepe, [facility] Cardiovascular Medicine [1] Past Medical History: Diagnosis Date Hypertension [2] Past Surgical History: Procedure Laterality Date APPENDECTOMY CHOLECYSTECTOMY REPLACEMENT TOTAL HIP ONCOLOGIC REPLACEMENT TOTAL KNEE ONCOLOGIC [3] Patient Active Problem List Diagnosis Acquired hammer toe of left foot Acquired hammer toe of right foot Allergic rhinitis, seasonal Asthma BMI 30.0-30.9,adult Cerumen impaction Change in bowel habits Chest pain Chronic UTI Cough Diverticulosis Fatigue GERD (gastroesophageal reflux disease) History of colonic polyps HTN (hypertension) Hypercholesteremia Leg cramps Migraines Osteoporosis Other fractures of lower end of left radius, subsequent encounter for closed fracture with routine healing Porokeratosis Shortness of breath Vitamin D deficiency [4] Social History Tobacco Use Smoking status: Never Smokeless tobacco: Never Substance Use Topics Alcohol use: Yes Comment: occasionally [5] Allergies Allergen Reactions Cefuroxime Itching, Other and Unknown * Christy Banda MA - 11/14/2024 10:20 AM EDT Patient is here today for a 6 month follow up. Patient states she feels the same as always, lackingin energy. Patient states the SOB is better. Patient denies chest pain, leg swelling, dizziness/lighted ness, and palpitations. Patient would like the results of her labs done in June. documented in this encounter Plan of Treatment Upcoming Encounters Date Type Department Care Team (Late st Contact Info) Description 02/05/2025 9:45 AM EDT Office Visit [facility] Heart [facility] [address] [place] [address] Ian Sims MD [address] [facility] [place] [address] Scheduled Orders Name Type Priority Associated Diagnoses Orde r Schedule Comprehensive metabolic panel Lab Routine Primary hypertension Expected: 11/14/2024 (Approximate), Expires: 11/14/2025 documented as of this encounter Visit Diagnoses Diagnosis Primary hypertension- Primary Unspecified essential hypertension Nonrheumatic aortic valve insufficiency Carotid stenosis, bilateral Occlusion and stenosis of carotid artery without mention of cerebral infarction Mixed hyperlipidemia documented in this encounter Care Teams Newspaper Photo Editor Relationship Specialty Start Date End Date Sabina Mckeon FNP-C [address] [place] [address] PCP - General Nurse Practitioner 04/07/24 documented as of this encounter
--- OUTSIDE RECORDS SUMMARY | 2024-11-28 10:53 | XMS_ITS | Patient Health Record ---
Author Organization [facility] Address [address] [place] [address] Care Team Providers Care Rear Load Truck Driver Name Role Phone Domingo Sandra Unavailable [phone] TanishaMorroa Unavailable [phone] anaiRosalba Desai Unavailable [phone] Allergies Allergen (clinical drug ingredient) Drug/Non Drug Allergy documented on EMR Reaction Allergy Type Onset Date Status cefuroxime Unknown Drug Allergy Active Results Component Value Reference Range Notes SCC- WRIST 3 VIEW LEFT [id number] Reviewed date:06/16/2024 11:44:18 AM Interpretation: Performing Lab: Notes/Report: SCC- PT/OT EVAL AND TREAT 3X /WEEK FOR 4 WEEKS Reviewed date:02/14/2024 10:47:27 AM Interpretation: Performing Lab: Notes/Report: Reason For Referral No Information Medications Medication SIG (Take, Route, Fr equency, Duration) Notes Start Date End Date Status alendronate Active losartan Active hydroCHLOROthiazide Active Klor-Con Active colestipol Active Social History Tobacco Use: Social History Observation Description Date Details (start date - stop date) Never Smoker NA - NA AUDIT-C (Standard) Question Answer Notes Did you have a drink containing alcohol in the p ast year? No Points 0 Interpretation Negative Tobacco Control (Standard) Question Answer Notes Tobacco use: Nonsmoker Problems Problem Type SNOMED Code ICD Code Onset Dates Problem Status W/U Status Risk Notes Problem [id number] Other fractures of lower end of left radius, subsequent encounter for closed fracture with routine healing (S52.592D) Active confirmed Vital Signs Height 5'7 in 03/13/2024 Weight 180 lbs 03/13/2024 BMI 28.19 03/13/2024 Encounters Encounter Location Date Provider Diagnosis [facility] Office [address] [place] [address] 12/17/2023 Kyung Garay Other closed fracture of distal end of left radius, initial encounter S52.592A [facility] [facility] [address] [place] [address] [place] [address] 12/27/2023 [facility] Other closed fracture of distal end of left radius, initial encounter S52.592A [facility] Office [address] [place] [address] [place] [address] 01/17/2024 [place] [facility] Other fractures of lower end of left radius, subsequent encounter for closed fracture with routine healing S52.592D [facility] Office [address] [place] [address] [place] [address] 02/14/2024 [place] [facility] Other fractures of lower end of left radius, subsequent encounter for closed fracture with routine healing S52.592D [facility] [facility] [address] [place] [address] [place] [address] 03/13/2024 [place] [facility] Other fractures of lower end of left radius, subsequent encounter for closed fracture with routine healing S52.592D and Trochanteric bursitis, right hip M70.61 Assessments Encounter Date Diagnosis (ICD Code) Assessment Notes Treatment Notes Treatment Clinical Notes Section Notes 12/17/2023 Other closed fracture of distal end of left radius, initial encounter (ICD-10 - S52.592A) 12/27/2023 Other closed fracture of distal end of left radius, initial encounter (ICD-10 - S52.592A) 01/17/2024 Other fractures of lower end of left radius, subsequent encounter for closed fracture with routine healing (ICD-10 - S52.592D) 02/14/2024 Other fractures of lower end of left radius, subsequent encounter for closed fracture with routine healing (ICD-10 - S52.592D) 03/13/2024 Trochanteric bursitis, right hip (ICD-10 - M70.61) Right trochanteric bursitis Left distal radius fracture Left thumb pain 03/13/2024 Other fractures of lower end of left radius, subsequent encounter for closed fracture with routine healing (ICD-10 - S52.592D) Right trochanteric bursitis Left distal radius fracture Left thumb pain 12/17/2023 Other We discussed treatments today. Her examination findings are consistent with an occult fracture of the distal radius as well as probable partial tear of the scapholunate ligament. I have recommended immobilization in a short arm fiberglass cast and to avoid lifting pushing or pulling. We discussed the cast will stay on for 5 to 6 weeks. We will see her back in 1 week to repeat x-rays and reassess her progress. Plan has been agreed upon by my supervising physician, MD Megan. 12/27/2023 Other Patient is bjorn dang well in her short arm cast and I have advised her to continue to modify activities even with cast in place. We will see her back in 3 weeks to remove cast and repeat x-rays. 01/17/2024 Other Today I will briseno ve the patient go into a cock up wrist splint for the next few weeks with activity and start to work on her ROM. Patient denies need for physical therapy and would like to do this on her own just darted. We will see the patient back in 4 weeks to reassess her progress. 02/14/2024 Other Patient is now 8 weeks out from injury and is still somewhat struggling with achieving full ROM. Patient has agreed to some physical therapy and I have written her prescription for this today. We will have her return in 4 weeks to repeat xrays and reassess her progress. 03/13/2024 Other Patient is bjorn dang well with her left wrist pain and ROM after injury approximately 3 months ago. She will work on gradually increasing activity as tolerated at home. Her thumb PIP pain has been intermittent and she has been using Voltaren gel with good relief so we will continue conservative care. We did discuss repeating corticosteroid injection into her right trochanteric bursa and she wished to proceed. I did provide her with a right trochanteric bursa injection today. She will return to the office in 6 weeks as needed. Right trochanteric bursitis Left distal radius fracture Left thumb pain Plan Of Treatment Pending Test Test Name Order Date SCC- WRIST 3 VIEW LEFT [id number] 12/27/2023 SCC- WRIST 3 VIEW LEFT [id number] 01/17/2024 Insurance Providers Payer Name Payer Address Payer Phone Subscriber Number Group Number Insured Name Patient Relationship to Insured Coverage Start Date Coverage End Date Medicare [address] [id number] [id number] [employer] Self - patient is the insured Medical [facility] [address] [place] [address] [id number] [employer] Self - patient is the insured Medications Administered Medication Instructions Date of Administration Dosage Notes BUPIVACAINE 03/13/2024 2 mL Depo-Medrol 03/13/2024 1 mL lidocaine 03/13/2024 2 mL Medical (General) History Medical History History ICD Code Asthma/COPD High Blood Pressure Drug Allergies Surgical History Surgery Date(Month/Year) hip replacement, david knee replacement
--- OUTSIDE RECORDS SUMMARY | 2024-11-28 10:53 | XMS_ITS | Clinical Summary ---
Author Organization [facility] Address [address], [address] [place] [address] Care Team Providers Care Physician Non Invasive Cardiologist Name Role Phone Unavailable Primary Care Provider Unavailabl e Social History Tobacco Use Types Packs/Day Years Used Date Smoking Tobacco: Never Assessed Comments Unknown Sex and Gender Information Value Date Recorded Sex Assigned at Female 12/06/2023 4:28 PM EDT Legal Sex Female 4:25 PM EDT Gender Identity Female 12/06/2023 4:28 PM EDT Sexual Orientation Straight 12/06/2023 4: 28 PM EDT Plan of Treatment Health Maintenance Due Date Last Done Comments Depression Screen 1954 DTaP/Tdap/Td vaccine (1 - Tdap) 1961 Pneumococcal 50+ years Vacci ne (1 of 1 - PCV) 1992 Shingles vaccine (1 of 2) 1992 DEXA (modify frequency per F RAX score) 1997 Respiratory Syncytial Virus (RSV) or age 60 yrs+ (1 - 1-dose 75+ series) 2017 COVID-19 Vaccine (2023-2 5 season) 2023 Flu vaccine (#1) 11/17/2024 Hepatitis A vaccine Aged Out No longe r eligible based on patient's age to complete this topic Hepatitis B vaccine Aged Out No longe r eligible based on patient's age to complete this topic Hib vaccine Aged Out No longer eligi ble based on patient's age to complete this topic Meningococcal (ACWY) vaccine Aged Out No longer eligible based on patient's age to complete this topic Meningococcal B vaccine Aged Out No l onger eligible based on patient's age to complete this topic Polio vaccine Aged Out No longer elig ible based on patient's age to complete this topic
[2024-11-28 11:29] LABS: Alanine Aminotransferase 27 U/L (14-59); Albumin Globulin Ratio 1.0; Albumin Level 3.6 g/dL (3.4-5.0); Alkaline Phosphatase 59 U/L (46-116); Anion Gap 5.7; Aspartate Amino Transferase 17 U/L (15-37); Blood Urea Nitrogen 20.0 mg/dL (7.0-18.0); Calcium 9.6 mg/dL (8.5-10.1); Carbon Dioxide 31.3 mmol/L (21.0-32.0); Chloride 105 mmol/L (98-107); Estimated GFR (African America >60 (>=60 mL/min/1.73m^2); Estimated GFR (Non-African Ame >60 (>=60 mL/min/1.73m^2); Globulin 3.6 g/dL; Glucose 92 mg/dL (74-106); Potassium 4.0 mmol/L (3.5-5.1); Sodium 138 mmol/L (136-145); Total Protein 7.2 g/dL (6.4-8.2)
== END 2024-11-28 10:52 | disposition home or self-care (01) ==
LOC: LAB 10:51
PROVIDERS: PCP Nurse Practitioner
DX: I10 Essential (primary) hypertension (principal)
CPT/HCPCS: 36415; 80053

== ENCOUNTER 2024-12-27 09:37 | Outpatient (OUT) | payer MEDICARE, OTHER, SELFPAY ==
--- OUTSIDE RECORDS SUMMARY | 2024-12-27 09:42 | XMS_ITS | CCD ---
Author Organization [facility] Care Team Providers Care Pellet Press Operator Name Role Phone CORINA ., DR BRITTANY [...] Oh Primary Care Unavailable NILL ., DR NEWTNO Attending Unavailable NILL ., DR NEWTON Admitting [...] BRITTANY Oh Primary Care Unavailable Linda, Sabina Hall Primary Care Physician [phone] Awais Guillory MD Primary Care Provider Awais Guillory MD Primary Care Provider Linda BUILDING TECH-GUN TESTER, Sabina Burroughs Primary Care Michaela Bojorquez MD, Zheng Thompson Attending Nisavaveto Bojorquez MD, Zheng Thompson Attending Nisavai lable Linda BUILDING TECH-GUN TESTER, Sabina Burroughs Primary Care Unava ilable Linda BUILDING TECH-GUN TESTER, Sabina Burroughs Primary Care Unava yasir Bojorquez MD, Zheng Thompson Attending Unavai re ACUÑA, CAPO H Attending Unavailable ACUÑA, CAPO H Attending Unavailable ACUÑA, CAPO H Attending Unavailable ACUÑA, CAPO H Attending Unavailable ACUÑA, CAPO H Attending Unavailable ACUÑA, CAPO H Attending Unavailable LIONEL, ALFREDITO Attending Unavailable ELTAHAWY, EHAB Attending Unavailable ELTAHAWY, EHAB Attending Unavailable Linda, Sabina L Attending Unavailable ANNE, MONICA Atkinson Attending Unavailable Linda, Sabina Hall Attending Unavailable Linda, Sabina Hall Attending Unavailable Linda, Sabina Hall Admitting Unavailable Linda, Sabina Hall Attending Unavailable Linda, Sabina L Attending Unavailable Linda, Sabina L Admitting Unavailable Linda, Sabina L Attending Unavailable Linda, Sabina L Attending Unavailable Linda, Sabina L Attending Unavailable Allergies Allergy Classification Reported Allergen(s) Allergy Type Date of Onset Reaction(s) Facility (3 sources) Amitriptyline; Translations: [amitriptyline] Drug Allergy [facility] Repository (1 source) Cephalexin Drug Allergy 2 [facility] Repository (3 sources) Amitriptyline; Translations: [amitriptyline] Drug Allergy Unknown (qualifier value) [facility] [place] (6 sources) Cefuroxime; Translations: [cefuroxime] Drug Allergy 4 Syncope and collapse (disorder), Itching (finding) [facility] (3 sources) No Known Medication Allergies; Translations: [No Known Medication Allergies] Propensity to adverse reactions to drug (disorder) [facility] Repository Medications Current Medications Medication Drug Class(es) Dates Sig (Normalized) Sig (Original) acetaminophen 300 mg / butalbital 50 mg oral tablet (11 sources) Barbiturate take 1 tablet by mouth [...] Oral, q4hr Headache, 30 tab(s), Refill(s) 0, [facility]/pharmacy #[id number], 166, cm, 03/16/23 9:10:00 EST, Height/Length Dosing, 85.6, kg, 03/16/23 9:10:00 EST, Weight Dosing Start Date: 03/16/23 Status: Ordered alendronic acid 70 mg oral tablet (14 sources) Bisphosphonate Start: 02-10-2024 alendronate 70 mg Tab See Instructions, TAKE 1 TABLET ONCE EVERY 7 DAYS, # 12 tab(s), Refills(s) 0, Pharmacy: [facility] STORE [id number], 167.5, cm, 12/24/23 10:08:00 EDT, Height/Length Dosing, 83.2, kg, 12/24/23 10:08:00 EDT, Weight Dosing Start Date: 02/10/24 Status: Ordered Start: 08-24-2023 alendronate 70 mg Tab 70 mg = 1 tab(s), Oral, q7day, # 12 tab(s), Refills(s) 0, Pharmacy: [facility]/pharmacy #[id number], 166, cm, 08/24/23 8:56:00 [...] # 6 caplet(s), Refills(s) 1, [id number] 166, cm, 08/24/23 8:56:00 EDT, Height/Length Dosing, 84, kg, 08/24/23 8:56:00 EDT, Weight Dosing Start Date: 08/24/23 Status: Ordered azithromycin 250 mg oral tablet (1 source) Macrolide Antimicrobial Start: 02-24-2024 End: 02-29-2024 azithromycin 250 mg Tab = 1 packet(s), Oral, As Directed, as directed on package labeling, X 5 day(s), # 6 tab(s), Refills(s) 0, [id number], 167.5, cm, 02/24/24 10:05:00 EST, [...] Ordered colestipol hydrochloride 1000 mg oral tablet (14 sources) Bile Acid Sequestrant Start: 10-26-2023 take 1 tablet by mouth once daily colestipol 1 g Tab See Instructions, TAKE 1 TABLET BY MOUTH EVERY DAY, # 90 tab(s), Refills(s) 1, Pharmacy: [facility] STORE [id number], 166, cm, 08/24/23 8:56:00 EDT, Height/Length Dosing, 84, kg, 08/24/23 8:56:00 EDT, Weight Dosing Start Date: 10/26/23 Status: Ordered Start: 04-27-2023 take 1 tablet by eric once daily Colestid 1 g Tab 1 gm = 1 tab(s), Oral, Daily, # 90 tab(s), Refills(s) 1, [id number], 166, cm, 03/16/23 9:10:00 EST, Height/Length Dosing, 85.6, kg, 03/16/23 9:10:00 EST, Weight Dosing Start Date: 04/27/23 Status: Ordered Start: 01-20-2023 take 1 tablet by eric in the morning colestipol (Colestid) 1 g [...] DAY, # 90 cap(s), Refills(s) 3, Pharmacy: [facility] STORE [id number], 167.5, cm, 12/24/23 10:08:00 EDT, Height/Length Dosing, 83.2, kg, 12/24/23 10:08:00 EDT, Weight Dosing Start Date: 01/18/24 Status: Ordered Start: 02-26-2023 [facility] 1 [facility] daily hydrochlorothiazide 12.5 mg Cap 12.5 mg = 1 cap(s), Oral, Daily, # 90 cap(s), Refills(s) 3, Pharmacy: [facility]/pharmacy #[id number], 166, cm, 02/02/23 8:45:00 EDT, Height/Length Dosing, 85, kg, 02/02/23 8:45:00 EDT, Weight Dosing Start Date: 02/26/23 Status: Ordered Start: 02-02-2023 take 1 [facility] once daily hydrochlorothiazide 12.5 mg Cap 12.5 mg = 1 cap(s), Oral, Daily, # 30 cap(s), Refills(s) 2, [id number], 166, cm, 02/02/23 8:45:00 EDT, Height/Length Dosing, 85, kg, 02/02/23 8:45:00 EDT, Weight Dosing Start Date: 02/02/23 Status: Ordered losartan potassium 25 mg oral tablet (14 sources) Angiotensin 2 Receptor Peter Start: 12-08-2022 [...] day(s), # 21 tab(s), Refills(s) 0, [id number], 167.5, cm, 02/24/24 10:05:00 EST, [...] DAY, # 90 tab(s), Refills(s) 1, Pharmacy: [facility] [id number], 167.5, cm, 12/24/23 10:08:00 EDT, Height/Length Dosing, 83.2, kg, 12/24/23 10:08:00 EDT, Weight Dosing Start Date: 01/18/24 Status: Ordered Start: 02-02-2023 take 1 tablet by eric th once daily Klor-Con M20 oral tablet, extended release 20 mEq = 1 tab(s), Oral, Daily, # 90 tab(s), Refills(s) 1, Pharmacy: [facility]/pharmacy #[id number], 166, cm, 08/24/23 8:56:00 [...] Sig (Original) albuterol 0.83 mg/ml inhalation solution (15 sources) beta2-Adrenergic Agonist Start: 02-24-2024 albuterol 0.083% Inh Yaima 3 mL See Instructions, 30 EA, Refill(s) 1, INHALE CONTENTS OF 1 VIAL VIA NEBULIZER EVERY 4 HOURS*J45.909*, [facility]/pharmacy #[id number], 167.5, cm, 02/24/24 10:05:00 [...] Classification Problem Date Documented Da te Episodic/Chronic Acquired foot deformities (11 sources) Acquired hammer toe of left foot; Translations: [Other hammer toe(s) (acquired), left foot] Onset: 01-27-2023 01-27-2023 Chronic Acquired foot deformities (11 sources) Acquired hammer toe of right foot; Translations: [Other hammer toe(s) (acquired), right foot] Onset: 01-27-2023 01-27-2023 Chronic Asthma (4 sources) Unspecified asthma, uncomplicated; Translations: [Asthma] Onset: 09-30-2021 04-07-2021 Chronic Conditions associated with dizziness or vertigo (4 sources) Benign paroxysmal vertigo, unspecified ear; Translations: [BENIGN PAROXYSMAL VERTIGO UNS EAR] Onset: 06-05-2022 Episodic Disorders of lipid metabolism (3 sources) Hypercholesterolemia ; Translations: [Mixed hyperlipidemia] Onset: 11-14-2024 02-24-2024 Chronic Diverticulosis and diverticulitis (4 sources) Diverticulosis of large intestine without perforation or abscess without bleeding; Translations: [Diverticular disease] Onset: 09-30-2021 04-07-2021 Chronic Esophageal disorders (4 sources) Gastro-esophageal reflux disease without esophagitis; Translations: [Gastroesophageal reflux disease] Onset: 09-30-2021 04-07-2021 Chronic Essential hypertension (6 sources) Essential (primary) hypertension; Translations: [Hypertensive disorder] Onset: 12-15-2021 04-07-2021 Chronic Headache; including migraine (3 sources) Migraine 04-07-2021 Chronic Heart valve disorders (2 sources) Nonrheumatic aortic (valve) insufficiency; Translations: [Nonrheumatic aortic (valve) insufficiency] Onset: 11-14-2024 Chronic Malaise and fatigue (7 sources) Other fatigue; Translations: [Fatigue] Onset: 12-12-2021 Episodic Mycoses (6 sources) Onychomycosis; Translations: [Tinea unguium] 02-23-2024 Episodic Nonspecific chest pain (1 source) Chest pain 12-03-2023 Episodic Nutritional deficiencies (4 sources) Vitamin D deficiency, unspecified; Translations: [Vitamin D deficiency] Onset: 09-30-2021 04-07-2021 Chronic Occlusion or stenosis of precerebral arteries (2 sources) Occlusion and stenosis of bilateral carotid arteries; Translations: [Occlusion and stenosis of bilateral carotid arteries] Onset: 11-14-2024 Chronic Osteoporosis (15 sources) Age-related osteoporosis without current pathological fracture; Translations: [Osteoporosis] Onset: 09-30-2021 04-07-2021 Chronic Other and unspecified benign neoplasm (3 sources) History of polyp of colon 04-08-2021 Episodic Other circulatory disease (7 sources) Peripheral vascular disease; Translations: [Other specified peripheral vascular diseases] 02-23-2024 Chronic Other congenital anomalies (11 sources) Porokeratosis; Translations: [Other specified congenital malformations of skin] Onset: 01-27-2023 01-27-2023 Chronic Other connective tissue disease (1 source) Presence of right artificial knee joint; Translations: [PRESENCE RT ARTIFICIAL KNEE JOINT] Onset: 09-30-2021 Chronic Other connective tissue disease (2 sources) Cramp in lower limb 08-24-2023 Episodic Other connective tissue disease (5 sources) Pain in both feet; Translations: [Pain in right foot] 02-23-2024 Episodic Other connective tissue disease (1 source) Plantar fasciitis; Translations: [Plantar fascial fibromatosis] 07-06-2024 Episodic Other ear and sense organ disorders (2 sources) Impacted cerumen 03-16-2023 Episodic Other gastrointestinal disorders (1 source) Irritable bowel syndrome without diarrhea; Translations: [IRRITABLE BOWEL SYND W/O DIARRHEA] Onset: 08-21-2021 Chronic Other gastrointestinal disorders (3 sources) Alteration [...] than 30 12-03-2023 Episodic Other skin disorders (6 sources) Callosity; Translations: [Corns and callosities] 02-23-2024 Episodic Other upper respiratory disease (3 sources) Seasonal allergic rhinitis 04-07-2021 Chronic Unclassified (3 sources) CONTACT W/AND (SUSP) EXPOS COVID-19; Translations: [CONTACT W/AND (SUSP) EXPOS COVID-19] Onset: 12-03-2021 Urinary tract infections (3 sources) Chronic urinary [...] 09-30-2021 Episodic Other aftercare (1 source) Other intermediate frame tender (current) drug therapy; Translations: [OTH DIRECTOR OF DIGITAL MARKETING CURRENT DRUG THERAPY] Onset: 12-05-2021 Episodic Other [...] [SHORTNESS OF BREATH] Onset: 12-24-2021 Episodic Other lower respiratory disease (2 sources) Other forms of dyspnea; Translations: [Other forms of dyspnea] Onset: 04-10-2024 Episodic Other screening for suspected conditions (not [...] Results Test Name Value Interpretation Reference Range Facility Ambulatory Visit Summaryon 0 12-07-2024 Ambulatory Visit Summary Ambulatory Visit Summary NORI QUEZADA :1940 Visit Date:12/07/2024 Ambulatory Visit Instructions Your Diagnosis Encounter for subsequent annual wellness visit (AWV) in Medicare patient Osteoporosis Breast cancer screening by mammogram GERD (gastroesophageal reflux disease) HTN (hypertension) Hypercholesteremia Overweight Tests Performed BD Bone Density DEXA -- Results Pending -- MA Mamm Screen w/CAD if perf and 3D Tommy -- Results Pending -- Please visit your patient portal for your results or contact your primary care physician. Your Care Team Attending Physician - Sabina Ruth Primary Care Physician - Sabina Ruth This Is Your Medications List APAP/butalbital/caffei ne (APAP/butalbital/caffe ine 325 mg-50 mg-40 mg Tab) Non-Formulary Medication (Probiotic) albuterol albuterol (albuterol 0.083% Inh Yaima 3 mL) alendronate (alendronate 70 mg Tab) amoxicillin (amoxicillin 500 mg Cap) atorvastatin (atorvastatin 40 mg Tab) calcium carbonate (calcium (as carbonate) 600 mg oral tablet) cholecalciferol (Vitamin D3) colestipol (colestipol 1 g Tab) fexofenadine (fexofenadine 180 mg Tab) hydrochlorothiazide (hydrochlorothiazide 12.5 mg Cap) ibuprofen losartan (losartan 25 mg Tab) multivitamin with minerals (Celebrate Multivitamin oral capsule) potassium chloride (Potassium Chloride (Syl-Yiuj-Rls M20) 20 mEq oral tablet, extended release) Procedures Performed Cataract extraction and insertion of intraocular lens (05/14/2020), Cataract extraction and insertion of intraocular lens (04/30/2020), Colonoscopy (11/25/2016), Colonoscopy (10/11/2013), Colonoscopy (09/28/2012), Appendectomy, Arthroplasty of knee, Cervical polypectomy, Cholecystectomy, Cystoscopy, Urethral dilatation. Discharge Vitals Heart Rate (Peripheral) 65 Blood Pressure 136/70 Height 167.9 cm Height 66 in Weight 84.2 kg Weight 185.629 lb BMI 29.87 What to do next Scheduled Follow-Up Appointments Wednesday 10:40 AM EST With: Sabina Ruth Where: [address] [id number] 11:00 AM EDT With: Where: [address] [address]- Medications What How Much When Instructions Unchanged [...] 4 hours as needed for Headache Unchanged atorvastatin (atorvastatin 40 mg Tab) Unchanged calcium carbonate (calcium (as carbonate) 600 mg oral tablet) 1 Tablets By Mouth Every day Unchanged cholecalciferol (Vitamin D3) 50 Microgram By Mouth Every day Unchanged colestipol (colestipol 1 g Tab) See instructions TAKE 1 TABLET BY MOUTH EVERY DAY Unchanged fexofenadine (fexofenadine 180 mg Tab) By Mouth Every day Unchanged hydrochlorothiazide (hydrochlorothiazide 12.5 mg Cap) See instructions TAKE 1 CAPSULE BY MOUTH EVERY DAY Unchanged ibuprofen Unchanged losartan (losartan 25 mg Tab) 2 Tablets By Mouth 2 times a day Unchanged multivitamin with minerals (Celebrate Multivitamin oral capsule) 1 Capsules By Mouth Every day Unchanged Non-Formulary Medication (Probiotic) 1 tab By Mouth Every day Unchanged potassium chloride (Potassium Chloride (Qti-Mlrr-Ndg M20) 20 mEq oral tablet, extended release) See instructions TAKE 1 TABLET BY MOUTH EVERY DAY Allergies cefuroxime (Syncope and collapse, Itch) amitriptyline (Unknown) Problems Ongoing - Any problem that you are currently receiving treatment for. Allergic rhinitis, seasonal Asthma BMI 29.0-29.9,adult Cerumen impaction Change in bowel habits Chest [...] choosing us for your care. Education Materials Preventing High Cholesterol Cholesterol is a white, waxy substance similar to fat that the human body needs to help build cells. The liver prabhakar (more content not included)... [facility] Family Medicine Office/Clini c Noteon 12-07-2024 Family Medicine Office/Clinic Note Family Medicine Office/Clinic Note Chief Complaint Subsequent Medicare Wellness Review of Systems PHQ Score Initial Depression Screen Score: 0 SCORE Physical Exam Vitals & Measurements HR: 65(Peripheral) BP: 136/70 SpO2: 95% HT: 167.9 cm HT: 66 in WT: 185.629 lb WT: 84.2 kg BMI: 29.87 Assessment/Plan 1. Encounter for subsequent annual wellness visit (AWV) in Medicare patient (Z00.00: Encounter for general adult medical examination without abnormal findings) Patient in office today for her Subsequent Medicare Wellness Visit. A customized and personalized print out of all the current AHRQ USPSTF???s recommendations for preventative services and all current CDC recommended immunizations, relevant risk recommendations and the following patient brochures were given. Reviewed What can I expect during my Medicare preventative care visit CDC-Falls Prevention and home safety screening reviewed. Patient reports 1 none injury fall in the last 12 months, voices worry about falling, exhibits no problems with sitting and standing. Pt voices understanding with keeping walk way area free of clutter to prevent tripping and/or falling. [place] Advance Directives reviewed, are present in chart. Patient is not an organ donor. Patient denies any problems with ADL???s and Instrumental ADL???s. Cognitive screening completed with memory and clock face drawing. Immunization Record reviewed with the patient. Discussed Shingrix vaccine and availability, handout provided. COVID vaccines have been received. Immunization record is up to date. Allergies and medications reviewed and up to date. Patient denies concerns with taking medication as prescribed, reviewed OTC medications with patient with medication list up to date. Blood tests were reviewed: UTD. Negative Cologuard test performed 09/24/2021. Reviewed concerns with bladder control over past 6 months with no concerns. Reviewed pain symptoms with patient: Patient denies pain. Reviewed all outside providers that patient follows. Last visit summary notes available in chart and/or have been requested. Follow up scheduled: AWV has been scheduled: 12/10/2025 Medicare provides yearly screening for alcohol and depression concerns. This is completed during our Medicare wellness visit for those who do not have a current diagnosis of depression or concerns with alcohol use. I spent a total of (12) minutes on this date of service which included preparing to see the patient, face to face patient care, completing clinical documentation, obtaining and/or reviewing separately obtained history, counseling and educating the patient with handouts. Explanations were provided with reviewing questionnaires. AUDIT risk assessment screening completed, risk score(1) with patient denying concerns with use. Completed PHQ-2 risk assessment for depression with risk score(0), negative findings. Patient has been reminded to notify the provider if there would be a change or concerns with symptoms with fear, unable to sleep, worrying too much or feeling down and/or sad with lost of interest with daily activities. Will continue to monitor with screening yearly during Medicare wellness visits. 2. Osteoporosis (M81.0: Age-related osteoporosis without current pathological fracture) Patient is compliant with taking alendronate for management of her Osteopenia. Denies any bone pain or discomfort. Patient has no reports of fractures. Reviewed recommended bone mineral density testing for women who are 65 years of age or older. Patient has routine DEXA scans, last was 12/24/2022. Next DEXA will be do 12/2022. Educational handout for Bone Health reviewed and provided to the patient during today's Medicare Wellness visit. Encouraged bone healthy diet, eating a well-balanced diet with plenty of Calcium and Vitamin D will help to protect your bones. Daily weight-bearing physical activity can help build strong bones, improve bone amounts, and decrease the risk of further bone decline. DEXA Scan ordered and faxed to [facility] per patient request. 3. Breast cancer screening by mammogram (Z12.31: Encounter for screening mammogram for malignant neoplasm of breast) Recommended mammogram screening discussed with patient during today's Medicare Wellness visit. Patient reminded with the importance of continued Breast Self-Awareness at home. Easy to read demonstration on how to perform a self breast exam: What to look for and feel for was reviewed and provided to patient. Mammogram ordered and faxed to [facility] per patient request. Pt has been advised no deodorant, sprays or lotions. 4. GERD (gastroesophageal reflux disease) (K21.9: Gastro-esophageal reflux disease without esophagitis) Patient is aware of diet changes with healthier eating habits, such as not eating late at night, losing or maintaining a healthy weight. Importance of not smoking and avoiding and/or reducing alcohol intake. Avoid tight clothing around the waist line and try to avoid spicy or high acid f (more content not included)... [facility] Comment on above: Result Comment: Elec tronically Signed By: Sabina Ruth\.br\Date and Time Signed: 12/07/24 14:21 EDT\.br\Electronically Co-Signed By: Renu Yang\.br\Date and Time Co-Signed: 12/07/24 13:21 EDT 36on 11-28-2024 36 LM for patient toñito lawrence her know Alfredito reviewed her BP/HR log. He said BP looked better controlled so continue current medications. [facility] Office Visiton 11-14-2024 Follow-up visit [id number] Morro Quezada 1940 F Date Provider Department Center 11/14/2024 [id number], [facility] Family History Problem Relation Age of Onset No Known Problems Mother No Known Problems Father Family Status - Relation Status Age at Mother Father Level of Service:93474 MS OFFICE/OUTPATIENT ESTABLISHED MOD MDM 30 MIN Normal [facility] Orthopedic Office/Clinic Not otilio 07-17-2024 Orthopedic Office/Clinic Note Chief Complaint Patient here for yearly bilateral knee total knee replacements. Right TKR- 05/22/19. Left TKR- 03/25/20. States doing well. XR today BVO. History of Present Illness 83-year-old white female with bilateral total knee arthroplasties right side May 2019 and left side March 2020. She reports doing well and is alone for the appointment today. She has some occasional tightness in the calf muscle behind the left total knee but overall does not have any injury and reports no fevers or chills. Review of Systems Constitutional Head Nose Mouth [...] No Physical Exam Vitals & Measurements HR: 70 (Peripheral) BP: 175/71 HT: 170.18 cm WT: 83.2 kg (Dosing) WT: 83.2 kg BMI: 28.73 Range of motion full extension to 125 degrees flexion bilaterally. Good patellar tracking with no crepitus. Normal gait. No point tenderness no instability. Additional Vitals BP Position/Location: Sitting, Left arm Assessment/Plan 1. Aftercare following joint replacement 2. History of total bilateral knee replacement (TKR) Doing well status post total knee arthroplasty. Risks, benefits, and alternatives discussed with patient today and appears to be doing well. Restrictions/precautio ns reinforced. Dental prophylaxis policy also reinforced. Recommend [...] reviewed the patient?s medication list for medication interactions/contraind ications and/or for upcoming procedures: [yes or no] Time Spent with the Patient I have personally spent [16] minutes on this date, directly related to today's patient visit, including pre and post visit work, for this date of service. Time listed does not include time spent on separately billable services. Problem List/Past Medical History Ongoing Aftercare following joint replacement Asthma Cataract, bilateral Eczema Hay fever History of total bilateral knee replacement (TKR) Osteoporosis Primary osteoarthritis of left knee Historical [...] oral tablet, 70 mg= 1 tabs, Oral, Weekly, ON SATURDAYS Calcium 600+D oral tablet, 1 tabs, Oral, Daily colestipol 1 g oral tablet, 1 g= 1 tabs, Oral, BID ketorolac 0.5% ophthalmic solution, 1 drops, Eye-Both, QID Metoprolol Succinate ER 25 mg oral tablet, extended release, TAKE 2 TABLETS BY MOUTH EVERY DAY AT BEDTIME multivitamin, 1 tabs, Oral, Daily ofloxacin 0.3% ophthalmic solution, 1 drops, Eye-Both, BID Pred Forte 1% ophthalmic suspension, 1 drops, Eye-Both, TID, Use TID for first week and then BID for second week Vitamin D3, 25 mcg, Oral, BID Allergies No Known Medication Allergies Social History Alcohol Never Employment/School Retired Exercise Home/Environment Lives with Spouse. Living situation: Home/Independent. , Home equipment: Walker/Cane. NONE Nutrition/Health Regular, Caffeine intake amount: 2-3 CUPS COFFEE DAILY. Substance Abuse Denies All Tobacco Never (less than 100 in lifetime) Use:. Family History Cancer of colon: Father. Health Status Family Member(s) Diagnostic Results XR Knee 1 or 2 Views Bilateral 07/17/24 12:53:56 IMPRESSION: Status post bilateral total knee arthroplasty with excellent prosthetic alignment no evidence of any significant periprosthetic lucencies or polyethylene wear. No evidence of fracture or dislocation. Patellofemoral alignment appears appropriate based on AP and lateral images. jjd Signed By: Zheng Bojorquez MD Electronically signed by _ (more content not included)... Normal [facility] XR Knee 1 or 2 Views Bilater sugey 07-17-2024 XR Knee 1 or 2 Views Bilateral _EXAM: Standing 2 views bilateral knees IMPRESSION: Status post bilateral total knee arthroplasty with excellent prosthetic alignment no evidence of any significant periprosthetic lucencies or polyethylene wear. No evidence of fracture or dislocation. Patellofemoral alignment appears appropriate based on AP and lateral images. janjel Final Signed by: Zheng Bojorquez MD Signed (Electronic Signature): 07/17/2024 1:00 pm Transcribed DT/TM: 07/17/2024 1:00 (If Report Is Signed, Electronically Signed in Other Vendor System) [facility] Ambulatory Visit Summaryon 0 07-13-2024 Ambulatory Visit Summary Ambulatory Visit Summary NORI QUEZADA :1940 Visit Date:07/13/2024 Ambulatory Visit Instructions Your Diagnosis Lump in neck Non-smoker BMI 30.0-30.9,adult Your Care Team Attending Physician - Sabina Ruth Primary Care Physician - Sabina Ruth This Is Your Medications List APAP/butalbital/caffei ne (APAP/butalbital/caffe ine 325 mg-50 mg-40 mg Tab) Non-Formulary Medication [...] Follow-Up Appointments 2024 11:00 AM EDT Where: [facility] Medicine [place] [id number]- Medications What How Much When Instructions Unchanged [...] choosing us for your care. Normal [facility] Family Medicine Office/Clini c Noteon 07-13-2024 Family [...] order u/s to confirm. order faxed to [facility]. 2. Non-smoker (Z78.9: Other specified health status) continue not smoking Ordered: losartan, 25 mg = 1 tab(s), Oral, BID, # 180 tab(s), Refills(s) 3, Pharmacy: [facility]/pharmacy #[id number], 167.5, cm, 02/15/24 11:55:00 [...] refills alendronate 70 mg Tab, See Instructions APAP/butalbital/caffei ne 325 mg-50 mg-40 mg Tab, 1 tab(s), [...] virus vaccine, inactivated 02/26/2023 Recorded SARS-CoV-2 (COVID-19) [id number] 02/23/2022 Recorded influenza virus vaccine, inactivated 02/10/2022 Recorded SARSCoV2 mRNA(bvuusvlqz-pvrc-le cros) vac 11/12/2021 Recorded influenza virus vaccine, inactivated [...] inactivated 02/24 (more content not included)... Normal [facility] Comment on above: Result Comment: Elec tronically Signed By: Sabina Ruth\.br\Date and Time Signed: 07/13/24 09:24 EDT Orders Onlyon 06-27-2024 Orders Only [id number] MohanMorro Guevara 1940 F Date Provider Department Center 06/27/2024 PRAVEEN SOLO Family History Problem Relation Age of Onset No Known Problems Mother No Known Problems Father Family Status - Relation Status Age at Mother Father Normal [facility] Office Visiton 05-11-2024 Follow-up visit [id number] Morro Quezada S 1940 F Date Provider Department Center 05/11/2024 IAN KELLY Family History Problem Relation Age of Onset No Known Problems Mother No Known Problems Father Family Status - Relation Status Age at Mother Father Level of Service:27106 MS OFFICE/OUTPATIENT ESTABLISHED MOD MDM 30 MIN Normal [facility] Office Visiton 04-10-2024 Follow-up visit [id number] Morro Quezada 1940 F Date Provider Department Center 04/10/2024 IAN KELLY Family History Problem Relation Age of Onset No Known Problems Mother No Known Problems Father Family Status - Relation Status Age at Mother Father Level of Service:92752 MS OFFICE/OUTPATIENT NEW MODERATE MDM 45 MINUTES Normal [facility] Reminderson 02-25-2024 Reminders Reminders From: Sabina Ruth To: [facility] - Clinical; [...] 10:28 TSH 1.56 mcIU/mL (0.34 - 5.60) From: Chely Herzog M.A. (B - Clinical) To: Sabina Ruth; Sent: 02/25/2024 09:25:04 EST Show up: 02/25/2024 09:23:00 EST Subject: RE: Ambulatory Reminder verbalizes understanding Normal [facility] Ambulatory Visit Summaryon 1 04-25-2023 Ambulatory Visit Summary Ambulatory Visit Summary NORI QUEZADA :1940 Visit Date:02/24/2024 Ambulatory Visit Instructions Your Diagnosis HTN (hypertension) Hypercholesteremia Cough Shortness of breath BMI 29.0-29.9,adult Your Care Team Attending Physician - Sabina Ruth Primary Care Physician - Sabina Ruth This Is Your Medications List APAP/butalbital/caffei ne (APAP/butalbital/caffe ine 325 mg-50 mg-40 mg Tab) Non-Formulary Medication [...] Follow-Up Appointments 2024 11:00 AM EDT Where: [address] [address]- Medications What How Much When Why Instructions New azithromycin (azithromycin 250 mg Tab) 1 Packets By Mouth As Directed HTN (hypertension) Hypercholesteremia Duration: 5 Days as directed on package labeling Pickup at [facility]/pharmacy #[id number] New methylPREDNISolone (Medrol 4 mg Tab) 1 Packets By Mouth As Directed HTN (hypertension) Hypercholesteremia Duration: 6 Days as directed on package labeling Pickup at [facility]/pharmacy #[id number] Unchanged albuterol Nebulized inhalation [...] TABLET BY MOUTH EVERY DAY Pharmacy Information [facility]/pharmacy #[id number]: [address], [place] [phone] Allergies cefuroxime (Syncope and collapse, Itch) amitriptyline [...] for choosing us for your care. Normal [facility] CHEMISTRYOrdered By: SYSTEM SYSTEM on 02-24-2024 [...] 1.56 m[IU]/L Normal 0.34 - 5.60 mcIU/mL [facility] Family Medicine Office/Clini c Noteon 02-24-2024 Family Medicine Office/Clinic Note Family Medicine Office/Clinic Note Chief Complaint 6m follow up HPI Staff Pt presents today for 6m follow up to HTN Patient is here for follow up on hypertension. How often are you checking your blood pressure? Couple times a week What are your average readings? _130/80 Yearly BMP: 05/07/24 Seen last week by Monica for sick [...] day(s), # 6 tab(s), Refills(s) 0, Pharmacy: [facility]/pharmacy #[id number], 167.5, cm, 02/24/24 10:05:00 EST, Height/Length Dosing, 83.8, kg, 02/24/24 10:05:00 EST, Weight Dosing losartan, 25 mg = 1 tab(s), Oral, BID, # 180 tab(s), Refills(s) 3, Pharmacy: [facility]/pharmacy #[id number], 166, cm, 03/16/23 9:10:00 EST, Height/Length Dosing, 85.6, kg, 03/16/23 9:10:00 EST, Weight Dosing losartan, 25 mg = 1 tab(s), Oral, BID, # 180 tab(s), Refills(s) 3, Pharmacy: [facility]/pharmacy #[id number], 167.5, cm, 02/15/24 11:55:00 EDT, Height/Length Dosing, 84.4, kg, 02/15/24 11:55:00 EDT, Weight Dosing methylPREDNISolone, = 1 packet(s), Oral, As Directed, as directed on package labeling, X 6 day(s), # 21 tab(s), Refills(s) 0, [id number] 167.5, cm, 02/24/24 10:05:00 EST, Height/Length Dosing, 83.8, kg, 02/24/24 10:05:00 EST, Weight Dosing Lipid Panel Thyroid Stimulating Hormone 2. Hypercholesteremia (E78.00: Pure hypercholesterolemia, unspecified) lipid panel in office today Ordered: azithromycin, = 1 packet(s), Oral, As Directed, as directed on package labeling, X 5 day(s), # 6 tab(s), Refills(s) 0, Pharmacy: [facility]/pharmacy #[id number], 167.5, cm, 02/24/24 10:05:00 EST, Height/Length Dosing, 83.8, kg, 02/24/24 10:05:00 EST, Weight Dosing methylPREDNISolone, = 1 packet(s), Oral, As Directed, as directed on package labeling, X 6 day(s), # 21 tab(s), Refills(s) 0, Pharmacy: [facility]/pharmacy #[id number], 167.5, cm, 02/24/24 10:05:00 [...] AFTER, # 6 caplet(s), Refills(s) 1, Pharmacy: [facility]/pharmacy #[id number], 166, cm, 08/24/23 8:56:00 [...] PRN alendronate 70 mg Tab, See Instructions APAP/butalbital/caffei ne 325 mg-50 mg-40 mg Tab, 1 tab(s), [...] Oral, BID (more content not included)... Normal [facility] Comment on above: Result Comment: Elec tronically Signed By: Sabina Ruth\.br\Date and Time Signed: 02/24/24 10:38 EST Lipid Panelon 02-24-2024 Cholesterol [Mass/Vol] 166 mg/dL Normal 120-200 [facility] Comment on above: Performed By: #### 2 [id number] #### [facility] [address] [place] [address] Cholesterol in HDL [Mass/Vol] 55 mg/dL Invalid Interpretation Code [facility] Comment on above: Result Comment: '>= 60 LOW RISK' '<= 40 HIGH RISK' Performed By: #### 2 [id number] #### [facility] [address] [place] [address] Cholesterol in LDL [Mass/Vol] 92 mg/dL Normal <=129 [facility] Comment on above: Performed By: #### 2 [id number] #### [facility] [address] [place] [address] Cholesterol in VLDL [Mass/Vol] 20 mg/dL Normal 7-40 [facility] Comment on above: Performed By: #### 2 [id number] #### [facility] [address] [place] [address] Triglyceride [Mass/Vol] 102 mg/dL Normal <=149 [facility] Comment on above: Performed By: #### 2 [id number] #### [facility] [address] [place] [address] TSHon 02-24-2024 TSH Qn 1.56 m[IU]/L Normal 0.34-5.60 [facility] Comment on above: Performed By: #### 2 [id number] #### [facility] [address] [place] [address] Family Medicine Office/Clini c Noteon 02-15-2024 Family [...] with a non-smoker Ordered: Rapid COVID POC 91113 3. BMI 30.0-30.9,adult (Z68.30: Body mass index [...] at subsequent visits. Ordered: Rapid COVID POC 60941 4. 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 Ordered: Rapid COVID POC 42706 Follow-up No qualifying data available Patient Education Allergic Rhinitis, Adult, Mfwv-py-Psnx Problem List/Past Medical History Ongoing Allergic rhinitis, [...] 500 mg Cap, See Instructions, 1 refills APAP/butalbital/caffei ne 325 mg-50 mg-40 mg Tab, 1 tab(s), Oral, q4hr, PRN calcium (as carbonate) 600 mg oral tablet, 600 mg= 1 tab(s), Oral, Daily Celebrate Multivitamin oral capsule, 1 cap(s), Oral, Daily colestipol 1 g Tab, See Instructions hydrochlorothiazide 12.5 mg Cap, See Instructions Klor (more content not included)... Normal [facility] Comment on above: Result Comment: Elec [...] Sabina Ruth This Is Your Medications List APAP/butalbital/caffei ne (APAP/butalbital/caffe ine 325 mg-50 mg-40 mg Tab) Non-Formulary Medication [...] 10:00 AM EST With: Sabina Ruth Where: [address] [address]24 11:00 AM EDT With: Where: [address] [address]- Medications What How Much When Why Instructions [...] choosing us for your care. Normal [facility] Family Medicine Office/Clini c Noteon 12-24-2023 Family [...] 500 mg Cap, See Instructions, 1 refills APAP/butalbital/caffei ne 325 mg-50 mg-40 mg Tab, 1 tab(s), [...] mRNA (toz (more content not included)... Normal [facility] Comment on above: Result Comment: Elec tronically Signed By: Linda MAHAN, Sabina Hall\.br\Date and Time Signed: 12/24/23 10:45 EDT CHEMISTRYOrdered By: SYSTEM SYSTEM on 08-24-2023 25-hydroxyvitamin D3 [Mass/Vol] 53.7 ng/mL Normal 30.0 - 100.0 ng/mL [facility] Anion gap [Moles/Vol] 10 mmol/L Normal 6 - 16 mEq/L R emisol Chem Calcium [Mass/Vol] 9.4 mg/dL Normal 8.9 - 11. 1 mg/dL [facility] Chloride [Moles/Vol] 104 mmol/L Normal 101 - 1 11 mmol/L [facility] CO2 [Moles/Vol] 30 mmol/L Normal 21 - 31 mmol/L [facility] Creatinine [Mass/Vol] 0.7 mg/dL Normal 0.5 - 1.3 mg/dL [facility] eGFR 87 mL/min/1.73 m2 Normal >=59mL/min /1 .73 m2 [facility] Glucose [Mass/Vol] 79 mg/dL Normal 55 - 199 mg/dL [facility] Iron [Mass/Vol] 63 ug/dL Normal 35 - 153 mcg/dL [facility] Potassium [Moles/Vol] 4.3 mmol/L Normal 3.5 - 5.3 mmol/L [facility] Sodium [Moles/Vol] 140 mmol/L Normal 135 - 145 mmol/L [facility] Urea nitrogen [Mass/Vol] 19 mg/dL Normal 5 - 21 mg/dL [facility] Urea nitrogen/Creatinine [Mass ratio] 27 mg/mg High 10 - 20 [facility] CHEMISTRYOrdered By: SYSTEM SYSTEM on 02-02-2023 Albumin [Mass/Vol] 4.1 g/dL Normal 3.3 - 5.0 gm/dL [facility] Remisol Albumin/Globulin [Mass ratio] 1.2 {ratio} Normal 1.1 - 2.2 [facility] Remisol ALP [Catalytic activity/Vol] 46 [iU]/d Normal 21 - 98 Int._Unit/L [facility] Remisol ALT No additional P-5'-P [Catalytic activity/Vol] 18 [iU]/d Normal 6 - 46 Int._Unit/L [facility] Remisol Anion gap [Moles/Vol] 11 mmol/L Normal 6 - 16 mEq/L [facility] Remisol AST [Catalytic activity/Vol] 23 [iU]/d Normal 5 - 43 Int._Unit/L [facility] Remisol Bilirubin [Mass/Vol] 0.4 mg/dL Normal 0.0 - 1 .1 mg/dL [facility] Remisol Calcium [Mass/Vol] 9.9 mg/dL Normal 8.9 - 11. 1 mg/dL [facility] Remisol Chloride [Moles/Vol] 106 mmol/L Normal 101 - 1 11 mmol/L [facility] Remisol Cholesterol [Mass/Vol] 178 mg/dL [...] (S/P/Bld) [Vol rate/Area] 74 mL/min/1.73 m2 Normal >=59mL/min/1 .73 m2 [facility] Chem S Comment on above: Interpretive Data: C hronic kidney disease could be indicated at eGFR's of less than 60 mL/min/1.73m2. Kidney failure is indicated at less than 15 mL/min/1.73m2. Globulin (S) [Mass/Vol] 3.3 g/dL Normal 1.4 - 4.0 gm/dL [facility] Remisol Glucose [Mass/Vol] 90 mg/dL Normal 55 - 199 mg/dL [facility] Remisol Comment on above: Interpretive Data: I f this glucose result represents a fasting glucose, interpretation should refer to the following reference range: 55-99 mg/dL Potassium [Moles/Vol] 4.2 mmol/L Normal 3.5 - 5.3 mmol/L [facility] Remisol Protein [Mass/Vol] 7.4 g/dL Normal 6.0 - 7.8 gm/dL [facility] Remisol Sodium [Moles/Vol] 142 mmol/L Normal 135 - 145 mmol/L [facility] Remisol Triglyceride [Mass/Vol] 47 mg/dL Normal <=149mg/dL [facility] Remisol TSH Qn 2.12 m[IU]/L Normal 0.34 - 5.60 mcIU/mL [facility] Remisol Urea nitrogen [Mass/Vol] 17 mg/dL Normal 5 - 21 mg/dL [facility] Remisol Urea nitrogen/Creatinine [Mass ratio] 21 mg/mg High 10 - 20 [facility] HEMATOLOGYOrdered By: SYSTEM SYSTEM on 02-02-2023 Basophils/100 WBC (Bld) 0.5 % Normal 0.0 - 2.0 % [facility] HemeAutoSS Basophils/Leukocytes Auto (Bld) [Pure # fraction] 0.0 E9/L Normal 0.0 - 0.2 E9/L [facility] HemeAutoSS Eosinophils/100 WBC (Bld) 1.4 % Normal 0.0 - 8.0 % [facility] HemeAutoSS Eosinophils/Leukocyte s Auto (Bld) [Pure # fraction] 0.1 E9/L Normal 0.0 - 0.5 E9/L [facility] HemeAutoSS Lymphocytes/100 WBC (Bld) 33.1 % Normal 14.0 - 50.0 % [facility] HemeAutoSS Lymphocytes/Leukocyte s Auto (Bld) [Pure # fraction] 2.0 E9/L Normal 1.0 - 4.0 E9/L [facility] HemeAutoSS Monocytes/100 WBC (Bld) 8.3 % Normal 4.0 - 14.0 % [facility] HemeAutoSS Monocytes/Leukocytes Auto (Bld) [Pure # fraction] 0.5 E9/L Normal 0.2 - 1.0 E9/L [facility] HemeAutoSS Neutrophils/100 WBC (Bld) 56.7 % Normal 36.0 - 75.0 % [facility] HemeAutoSS Neutrophils/Leukocyte s Auto (Bld) [Pure # fraction] 3.5 E9/L [...] 4.4 E12/L Normal 4.3 - 5.9 E12/L [facility] HemeAutoSS WBC corrected for nucl RBC Auto (Bld) [#/Vol] 6.2 E9/L Normal 4.0 - 11.0 E9/L [facility] MG MAMM SCREEN 3D TOMMY CADon 12-19-2021 MG MAMM SCREEN 3D TOMMY CAD Patient: NORI QUEZADA Exam Date: 12/19/2021 : 1940 Gender:F Ordering : DR BRITTANY FREEDMAN . Admission #: [id number] Family : Order #: [id number] CLICK HERE TO VIEW EXAM RADIOLOGY REPORT PROCEDURE: MAMMOGRAM SCREENING 3D BILATERAL CAD COMPARISON: MG MAMM SCREEN 3D TOMMY CAD, 09/17/2020. INDICATIONS: Screening mammography Calculator Name NCI Breast Cancer Risk Assessment Tool 5 Year Breast Cancer Risk 1.50% Lifetime Breast Cancer Risk 2.50% Personal Breast Cancer No Personal Ovarian Cancer No Treatments None Family Cancers Cousin-paternal with breast cancer at age 68; Father with colon cancer at age 67. LOCATION: [facility] BREAST COMPOSITION: Extremely dense, which lowers the [...] MD on 12/19/2021 at 13:46 Normal [facility] CBC AUTO DIFFon 12-12-2021 BASO # 0.0 103/ul Normal 0.0-0.1 [facility] Comment on above: Performed By: #### C BC #### [facility] [address] [place] [address] [address] aKiser García Basophils/100 WBC (Bld) 0.3 % Normal 0.2-2.0 [facility] Comment on above: Performed By: #### C BC #### [facility] [address] [place] [address] [address] Kaiser García EO # 0.1 103/ul Normal 0.0-0.7 [facility] Comment on above: Performed By: #### C BC #### [facility] [address] [place] [address] Dr. Kaiser García Eosinophils/100 WBC (Bld) 1.9 % Normal 0.9-7.0 [facility] Comment on above: Performed By: #### C BC #### [facility] [address] [place] [address] Dr. Kaiser García Erythrocyte distribution width (RBC) [Ratio] 13.9 % Normal 11.0-15.0 [facility] Comment on above: Performed By: #### C BC #### [facility] [address] [place] [address] Dr. Kaiser García Hematocrit (Bld) [Volume fraction] 38.5 % Normal 36.0-48.0 [facility] Comment on above: Performed By: #### C BC #### [facility] [address] [place] [address] Dr. Kaiser García Hemoglobin (Bld) [Mass/Vol] 12.0 g/dL Normal 12.0-16.0 [facility] Comment on above: Performed By: #### C BC #### [facility] [address] [place] [address] Dr. Kaiser García IG # 0.03 10e3/ul Normal 0.00-0.03 [facility] Comment on above: Performed By: #### C BC #### [facility] [address] [place] [address] Dr. Kaiser García IG % 0.4 % Normal 0.0-0.5 [facility] Comment on above: Performed By: #### C BC #### [facility] [address] [place] [address] Dr. Kaiser García LYMPH # 2.5 103/ul Normal 1.2-3.8 [facility] Comment on above: Performed By: #### C BC #### [facility] [address] [place] [address] Dr. Kaiser García Lymphocytes/100 WBC (Bld) 35.7 % Normal 20.5-60.0 [facility] Comment on above: Performed By: #### C BC #### [facility] [address] [place] [address] Dr. Kaiser García MANUAL DIFF REQ NO Normal [facility] Comment on above: Performed By: #### C BC #### [facility] [address] [place] [address] Dr. Kaiser García MCH (RBC) [Entitic mass] 28.5 pg Normal 26.7-34.0 [facility] Comment on above: Performed By: #### C BC #### [facility] [address] [place] [address] Dr. Kaiser García MCHC (RBC) [Mass/Vol] 31.2 g/dL Normal 29.9-35.2 [facility] Comment on above: Performed By: #### C BC #### [facility] [address] [place] [address] Dr. Kaiser García MCV (RBC) [Entitic vol] 91.4 fL Normal 81.0-99.0 [facility] Comment on above: Performed By: #### C BC #### [facility] [address] [place] [address] Dr. Kaiser García MONO # 0.6 103/ul Normal 0.3-0.8 [facility] Comment on above: Performed By: #### C BC #### [facility] [address] [place] [address] Dr. Kaiser García Monocytes/100 WBC (Bld) 8.7 % Normal 1.7-12.0 [facility] Comment on above: Performed By: #### C BC #### [facility] [address] [place] [address] Dr. Kaiser García NEUT # 3.7 103/ul Normal 1.4-6.5 [facility] Comment on above: Performed By: #### C BC #### [facility] [address] [place] [address] Dr. Kaiser García Neutrophils/100 WBC (Bld) 53.0 % Normal 43.0-75.0 [facility] Comment on above: Performed By: #### C BC #### [facility] [address] [place] [address] [address] Kaiser García Platelet mean volume (Bld) [Entitic vol] 9.4 fL Critically low 9.5-13.5 [facility] Comment on above: Performed By: #### C BC #### [facility] [address] [place] [address] [address] Kaiser García PLT 244 103/ul Normal 150-450 [facility] Comment on above: Performed By: #### C BC #### [facility] [address] [address] [address] Kaiser García RBC 4.21 106/ul Normal 4.20-5.40 [facility] Comment on above: Performed By: #### C BC #### [facility] [address] [address] [address] Kaiser García WBC 6.9 103/ul Normal 4.0-11.0 [facility] Comment on above: Performed By: #### C BC #### [facility] [address] [address] [address] Kaiser García PROF 14(COMP METB)on 022 Albumin [Mass/Vol] 3.6 g/dL Normal 3.4-5.0 [facility] Comment on above: Performed By: #### C MP, TSH ####[facility] [address] [address]DrNia García Albumin/Globulin [Mass ratio] 1.1 {ratio} Normal [facility] Comment on above: Performed By: #### C MP, TSH ####[facility] [address] [place] [address]Dr. Kaiser García ALP [Catalytic activity/Vol] 51 U/L Normal 46-116 [facility] Comment on above: Performed By: #### C MP, TSH ####[facility] [address] [place] [address]DrNia García ALT [Catalytic activity/Vol] 19 U/L Normal 14-59 [facility] Comment on above: Performed By: #### C MP, TSH ####[facility] [address] [place] [address]Dr. Kaiser García Anion gap [Moles/Vol] 11.6 mmol/L Normal [facility] Comment on above: Performed By: #### C MP, TSH ####[facility] [address] [place] [address]Dr. Kaiser García AST [Catalytic activity/Vol] 14 U/L Critically low 15-37 [facility] Comment on above: Performed By: #### C MP, TSH ####[facility] [address] [place] [address]Dr. Kaiser García Bilirubin [Mass/Vol] 0.3 mg/dL Normal 0.2-1.0 [facility] Comment on above: Performed By: #### C MP, TSH ####[facility] [address] [place], [place] [address]Dr. Kaiser García Calcium [Mass/Vol] 9.0 mg/dL Normal 8.5-10.1 [facility] Comment on above: Performed By: #### C MP, TSH ####[facility] [address] [address]Dr. Kaiser García Chloride [Moles/Vol] 104 mmol/L Normal 98-107 [facility] Comment on above: Performed By: #### C MP, TSH ####[facility] [address] [place], [place] [address]Dr. Kaiser García CO2 [Moles/Vol] 28.4 mmol/L Normal 21.0-32.0 [facility] Comment on above: Performed By: #### C MP, TSH ####[facility] [address] [place] [address]Dr. Kaiser García Creatinine [Mass/Vol] 0.73 mg/dL Normal 0.55-1.02 [facility] Comment on above: Performed By: #### C MP, TSH ####[facility] [address] [place], [place] [address]Dr. Kaiser García EGFR-AF MALIAN >60 Normal >=60 [facility] Comment on above: Performed By: #### C MP, TSH ####[facility] [address] [place] [id number]. Kaiser García EGFR-NON AF MALIAN >60 Normal >=60 [facility] Comment on above: Performed By: #### C MP, TSH ####[facility] [address] [place] [id number]. Kaiser García Globulin (S) [Mass/Vol] 3.4 g/dL Normal [facility] Comment on above: Performed By: #### C MP, TSH ####[facility] [address] [address]Dr. Kaiser García Glucose [Mass/Vol] 73 mg/dL Critically low 74-106 [facility] Comment on above: Performed By: #### C MP, TSH ####[facility] [address] [address]Dr. Kaiser García Potassium [Moles/Vol] 4.0 mmol/L Normal 3.5-5.1 [facility] Comment on above: Performed By: #### C MP, TSH ####[facility] [address] [address]Dr. Kaiser García Protein [Mass/Vol] 7.0 g/dL Normal 6.4-8.2 [facility] Comment on above: Performed By: #### C MP, TSH ####[facility] [address] [address]Dr. Kaiser García Sodium [Moles/Vol] 140 mmol/L Normal 136-145 [facility] Comment on above: Performed By: #### C MP, TSH ####[facility] [address] [address]Dr. Kaiser García Urea nitrogen [Mass/Vol] 23.0 mg/dL Critically high 7.0-18.0 [facility] Comment on above: Performed By: #### C MP, TSH ####[facility] [address] [address]Dr. Kaiser García Urea nitrogen/Creatinine [Mass ratio] 31.5 mg/mg Normal [facility] Comment on above: Performed By: #### C MP, TSH ####[facility] [address] [place], [place] [address]DkNia García TSHon 12-12-2021 TSH 1.112 uIU/mL Normal 0.358-3.740 [facility] [facility] Comment on above: Performed By: #### C MP, TSH ####[facility] [address] [place], [place] [address]Do. Kaiser García XR CHEST 1 Von 12-04-2021 [...] Mesfin LIZ Date: 2021-12-03 23:19 Normal [facility] CBC AUTO DIFFon 12-03-2021 BASO # 0.0 103/ul Normal 0.0-0.1 [facility] Comment on above: Performed By: #### C BC #### [facility] [address] [place] [address] Dr. Kaiser García Basophils/100 WBC (Bld) 0.3 % Normal 0.2-2.0 [facility] Comment on above: Performed By: #### C BC #### [facility] [address] [place] [address] Dr. Kaiser García EO # 0.1 103/ul Normal 0.0-0.7 [facility] Comment on above: Performed By: #### C BC #### [facility] [address] [place] [address] Dr. Kaiser García Eosinophils/100 WBC (Bld) 1.0 % Normal 0.9-7.0 [facility] Comment on above: Performed By: #### C BC #### [facility] [address] [place] [address] Dr. Kaiser García Erythrocyte distribution width (RBC) [Ratio] 13.8 % Normal 11.0-15.0 [facility] Comment on above: Performed By: #### C BC #### [facility] [address] [place] [address] Dr. Kaiser García Hematocrit (Bld) [Volume fraction] 38.5 % Normal 36.0-48.0 [facility] Comment on above: Performed By: #### C BC #### [facility] [address] [place] [address] Dr. Kaiser García Hemoglobin (Bld) [Mass/Vol] 12.4 g/dL Normal 12.0-16.0 [facility] Comment on above: Performed By: #### C BC #### [facility] [address] [place] [address] Dr. Kaiser García IG # 0.01 10e3/ul Normal 0.00-0.03 [facility] Comment on above: Performed By: #### C BC #### [facility] [address] [place] [address] Dr. Kaiser García IG % 0.2 % Normal 0.0-0.5 [facility] Comment on above: Performed By: #### C BC #### [facility] [address] [place] [address] Dr. Kaiser García LYMPH # 2.0 103/ul Normal 1.2-3.8 [facility] Comment on above: Performed By: #### C BC #### [facility] [address] [place] [address] Dr. Kaiser García Lymphocytes/100 WBC (Bld) 32.4 % Normal 20.5-60.0 [facility] Comment on above: Performed By: #### C BC #### [facility] [address] [place] [address] Dr. Kaiser García MANUAL DIFF REQ NO Normal [facility] Comment on above: Performed By: #### C BC #### [facility] [address] [place] [address] Dr. Kaiser García MCH (RBC) [Entitic mass] 28.8 pg Normal 26.7-34.0 [facility] Comment on above: Performed By: #### C BC #### [facility] [address] [place] [address] Dr. Kaiser García MCHC (RBC) [Mass/Vol] 32.2 g/dL Normal 29.9-35.2 [facility] Comment on above: Performed By: #### C BC #### [facility] [address] [place] [address] Dr. Kaiser García MCV (RBC) [Entitic vol] 89.3 fL Normal 81.0-99.0 [facility] Comment on above: Performed By: #### C BC #### [facility] [address] [place] [address] Dr. Kaiser García MONO # 0.3 103/ul Normal 0.3-0.8 [facility] Comment on above: Performed By: #### C BC #### [facility] [address] [place] [address] Dr. Kaiser García Monocytes/100 WBC (Bld) 4.2 % Normal 1.7-12.0 [facility] Comment on above: Performed By: #### C BC #### [facility] [address] [place] [address] Dr. Kaiser García NEUT # 3.9 103/ul Normal 1.4-6.5 [facility] Comment on above: Performed By: #### C BC #### [facility] [address] [place] [address] Dr. Kaiser García Neutrophils/100 WBC (Bld) 61.9 % Normal 43.0-75.0 [facility] Comment on above: Performed By: #### C BC #### [facility] [address] [place] [address] Dr. Kaiser García Platelet mean volume (Bld) [Entitic vol] 10.1 fL Normal 9.5-13.5 [facility] Comment on above: Performed By: #### C BC #### [facility] [address] [place] [address] Dr. Kaiser García PLT 175 103/ul Normal 150-450 [facility] Comment on above: Performed By: #### C BC #### [facility] [address] [address] [address] Kaiser García RBC 4.31 106/ul Normal 4.20-5.40 [facility] Comment on above: Performed By: #### C BC #### [facility] [address] [address] [address] Kaiser García WBC 6.2 103/ul Normal 4.0-11.0 [facility] Comment on above: Performed By: #### C BC #### [facility] [address] [address] [address] Kaiser García PROF 14(COMP METB)on 022 Albumin [Mass/Vol] 3.6 g/dL Normal 3.4-5.0 [facility] Comment on above: Performed By: #### H STROPN, CMP #### [facility] [address] [place] [address] Dr. Kaiser García Albumin/Globulin [Mass ratio] 1.0 {ratio} Normal [facility] Comment on above: Performed By: #### H STROPN, CMP #### [facility] [address] [place] [address] Dr. Kaiser García ALP [Catalytic activity/Vol] 54 U/L Normal 46-116 [facility] Comment on above: Performed By: #### H STROPN, CMP #### [facility] [address] [place] [address] Dr. Kaiser García ALT [Catalytic activity/Vol] 17 U/L Normal 14-59 [facility] Comment on above: Performed By: #### H STROPN, CMP #### [facility] [address] [place] [address] Dr. Kaiser García Anion gap [Moles/Vol] 15.4 mmol/L Normal [facility] Comment on above: Performed By: #### H STROPN, CMP #### [facility] [address] [place] [address] Dr. Kaiser García AST [Catalytic activity/Vol] 21 U/L Normal 15-37 [facility] Comment on above: Performed By: #### H STROPN, CMP #### [facility] [address] [address] [address] Kaiser García Bilirubin [Mass/Vol] 0.4 mg/dL Normal 0.2-1.0 [facility] Comment on above: Performed By: #### H STROPN, CMP #### [facility] [address] [place] [address] Dr. Kaiser García Calcium [Mass/Vol] 9.1 mg/dL Normal 8.5-10.1 [facility] Comment on above: Performed By: #### H STROPN, CMP #### [facility] [address] [address] [address] Kaiser García Chloride [Moles/Vol] 101 mmol/L Normal 98-107 [facility] Comment on above: Performed By: #### H STROPN, CMP #### [facility] [address] [place] [address] Dr. Kaiser García CO2 [Moles/Vol] 22.4 mmol/L Normal 21.0-32.0 [facility] Comment on above: Performed By: #### H STROPN, CMP #### [facility] [address] [place] [address] Dr. Kaiser García Creatinine [Mass/Vol] 1.19 mg/dL Critically high 0.55-1.02 [facility] Comment on above: Performed By: #### H STROPN, CMP #### [facility] [address] [place] [address] Dr. Kaiser García EGFR-AF MALIAN 53 mL/min/1.73m2 Critically low >=60 [facility] Comment on above: Performed By: #### H STROPN, CMP #### [facility] [address] [place] [address] Dr. Kaiser García EGFR-NON AF MALIAN 44 mL/min/1.73m2 Critically low >=60 [facility] Comment on above: Performed By: #### H STROPN, CMP #### [facility] [address] [place] [address] Dr. Kaiser García Globulin (S) [Mass/Vol] 3.5 g/dL Normal [facility] Comment on above: Performed By: #### H DEEPALI, CMP #### [facility] [address] [place] [address] Dr. Kaiser García Glucose [Mass/Vol] 220 mg/dL Critically high 74-106 T [facility] Comment on above: Performed By: #### H JAMIRPN, CMP #### [facility] [address] [place] [address] Dr. Kaiser García Potassium [Moles/Vol] 3.8 mmol/L Normal 3.5-5.1 [facility] Comment on above: Performed By: #### H DEEPALI, CMP #### [facility] [address] [place] [address] Dr. Kaiser García Protein [Mass/Vol] 7.1 g/dL Normal 6.4-8.2 [facility] Comment on above: Performed By: #### H DEEPALI, CMP #### [facility] [address] [place] [address] Dr. Kaiser García Sodium [Moles/Vol] 135 mmol/L Critically low 136-145 Th [facility] Comment on above: Performed By: #### H DEEPALI, CMP #### [facility] [address] [place] [address] Dr. Kaiser García Urea nitrogen [Mass/Vol] 22.0 mg/dL Critically high 7.0-18.0 [facility] Comment on above: Performed By: #### H JAMIRPN, CMP #### [facility] [address] [place] [address] Dr. Kaiser García Urea nitrogen/Creatinine [Mass ratio] 18.5 mg/mg Normal [facility] Comment on above: Performed By: #### H JAMIRPN, CMP #### [facility] [address] [place] [address] Dr. Kaiser García TROPONIN, HIGH SENSITIVITYon 12-03-2021 HSTROP 9.4 pg/mL Normal 4.0-51.3 [facility] Comment on above: Result Comment: CUT- OFF POINTS HAVE BEEN ESTABLISHED BASED ON THE FOURTH UNIVERSAL DEFINITIONS OF MYOCARDIAL INFARCTION. THE UPPER REFERENCE LIMIT (URL) OF TROPONIN, DEFINED THE 99TH PERCENTILE OF cTnI DISTRIBUTION IN A REFERENCE POPULATION, HAS BEEN CONFIRMED THE DECISION THRESHOLD FOR NM DIAGNOSIS. Performed By: #### H STROPN, [facility] #### [facility] [address] [place] [address] [address] [address] Kaiser García Covid-19 PCR ([facility])on 11-17 SARS-CoV-2 (COVID-19) RNA DANIEL+probe Ql (Unsp spec) Not detected Normal NOT DETECTED [facility] Comment on above: Result Comment: This test is not yet approved or cleared by the [place] FDA. When there are no FDA-approved or cleared tests available, and other criteria are met, FDA can make tests available under an emergency access mechanism called an Emergency Use Authorization (EUA). The EUA for this test is supported by the Speed Operator of Health and Human Service's (HHS's) declaration [...] consistent with SARS-CoV-2. Performed By: #### [facility] #### [facility] [address] [place] [address] [address] [address] Kaiser García US ISABELLA DOP LEG [...] by: BERNARD REZA Date: 2021-10-17 16:45 Normal [facility] Encounters Encounter Date Encounter Type Care Provider Facility Start: 12-10-2025 ambulatory [facility]: [facility] Start: 03-09-2025 ambulatory [facility] Start: 12-07-2024 End: 12-07-2024 ambulatory [facility] Start: 11-27-2024 End: 11-27-2024 Bamboo flowsheet Capo Acuña DPM Work Phone: [facility] Start: 11-27-2024 End: 11-27-2024 Bamboo flowsheet Capo Acuña DPM Work Phone: [facility] Start: 11-27-2024 End: 11-27-2024 Patient encounter procedure Capo Acuña DPM Work Phone: [facility] Comment on above: Onychomycosis (Prima ry Dx); Corns and callosities; Other specified peripheral vascular diseases; Pain in both feet Start: 11-27-2024 End: 11-27-2024 ambulatory CAPO ACUÑA Not Available Start: 11-14-2024 End: 11-14-2024 ambulatory ALFREDITO [facility] Start: 09-21-2024 End: 09-21-2024 Bamboo flowsheet Capo Acuña DPM Work Phone: [facility] Start: 09-21-2024 End: 09-21-2024 Bamboo flowsheet Capo Acuña DPM Work Phone: [facility] Start: 09-21-2024 End: 09-21-2024 Patient encounter procedure Capo Acuña DPM Work Phone: [facility] Comment on above: Onychomycosis (Prima ry Dx); Corns and callosities; Other specified peripheral vascular diseases; Pain in both feet Start: 09-21-2024 End: 09-21-2024 ambulatory CAPO ACUÑA Not Available Start: 07-17-2024 End: 07-17-2024 ambulatory Sabina Mckeon [employer] Facility:[facility] Start: 07-13-2024 End: 07-13-2024 ambulatory Sabina Mckeon Facility:[facility] [place] Start: 07-06-2024 End: 07-06-2024 Office outpatient visit 15 minutes Capo Acuña DPM Work Phone: [facility] Comment on above: Onychomycosis (Prima ry Dx); Corns and callosities; Other specified peripheral vascular diseases (CMS/HCC); Pain in both feet; Peripheral vascular disease (CMS/HCC); Plantar fasciitis Start: 07-06-2024 End: 07-06-2024 ambulatory CAPO ACUÑA Not Available Start: 05-11-2024 End: 05-11-2024 ambulatory [facility] Start: 05-03-2024 End: 05-03-2024 Bamboo flowsheet Capo Acuña DPM Work Phone: [facility] Start: 05-03-2024 End: 05-03-2024 Bamboo flowsheet Capo Acuña DPM Work Phone: [facility] Start: 05-03-2024 End: 05-03-2024 Patient encounter procedure Capo Acuña DPM Work Phone: [facility] Comment on above: Onychomycosis (Prima ry Dx); Corns and callosities; Other specified peripheral vascular diseases (CMS/HCC) Start: 05-03-2024 End: 05-03-2024 ambulatory CAPO ACUÑA Not Available Start: 04-10-2024 End: 04-10-2024 ambulatory [facility] Start: 02-24-2024 End: 02-24-2024 Lab Drop off Sabina L Linda [facility] Start: 02-24-2024 End: 02-24-2024 ambulatory Sabina L Linda Facility:[facility] Start: 02-23-2024 End: 02-23-2024 Bamboo flowsheet Capo Acuña DPM Work Phone: [facility] Start: 02-23-2024 End: 02-23-2024 Bamboo flowsheet Capo Acuña DPM Work Phone: [facility] Start: 02-23-2024 End: 02-23-2024 Patient encounter procedure Capo Acuña DPM Work Phone: [facility] Comment on above: Onychomycosis (Prima ry Dx); Corns and callosities; Other specified peripheral vascular diseases (CMS/HCC); Pain in both feet Start: 02-23-2024 End: 02-23-2024 ambulatory CAPO ACUÑA Not Available Start: 02-15-2024 End: 02-15-2024 ambulatory MONICA RODRÍGUEZ Facility:[facility] Start: 12-24-2023 End: 12-24-2023 ambulatory Sabina L Linda Facility:[facility] Start: 12-22-2023 End: 12-22-2023 Bamboo flowsheet Capo Acuña DPM Work Phone: [facility] Start: 12-22-2023 End: 12-22-2023 Bamboo flowsheet Capo Acuña DPM Work Phone: [facility] Start: 12-22-2023 End: 12-22-2023 Patient encounter procedure Capo Acuña DPM Work Phone: [facility] Comment on above: Onychomycosis (Prima ry Dx); Pain in both feet; Corns and callosities; Other specified peripheral vascular diseases (CMS/HCC) Start: 12-22-2023 End: 12-22-2023 ambulatory CAPO ACUÑA Not Available Start: 08-24-2023 End: 08-24-2023 Lab Drop off Sabina L Linda [facility] Start: 02-02-2023 End: 02-02-2023 Lab Drop off Sabina Hall Linda [facility] Start: 06-05-2022 End: 06-18-[address] BRITTANY [...] Facility:[facility] Start: 09-24-2021 End: 09-24-[address] LAMRA SETXON . Facility:[facility] Start: 09-20-[address] LAMAR [...] Treatment Date Care Activity Detail Author Start: 12-18-2024 Influenza vaccination Influenz a Vaccine (#1) [facility] Start: 11-27-2024 End: 11-27-2024 Patient encounter procedure 11/27/2024 10:15 AM EDT Procedure Visit [facility] [address] [place] [address] Capo Acuña, DPM [address] [place] [address] Arrived [facility] Comment on above: Arrived Start: 11-15-2024 End: 11-15-2024 Patient encounter procedure 11/15/2024 8:15 AM EDT Procedure Visit [facility] [address] [place] [address] Capo Acuañ, DPM [address] [place] [address] [facility] Start: 09-21-2024 End: 09-21-2024 Patient encounter procedure 09/21/2024 9:30 AM EDT Procedure Visit [facility] [address] [place] [address] Capo Acuña, DPM [address] [place] [address] Arrived [facility] Comment on above: Arrived Start: 09-12-2024 End: 09-12-2024 Patient encounter procedure 09/12/2024 9:15 AM EDT Procedure Visit [facility] [address] [place] [address] Capo Acuña, DPM [address] [place] [address] [facility] Start: 09-06-2024 End: 09-06-2024 Patient encounter procedure 09/06/2024 10:15 AM EDT Procedure Visit [facility] [address] [place] [address] Capo Acuña, DPM [address] [place] [address] [facility] Start: 07-06-2024 End: 07-06-2024 Patient encounter procedure 07/06/2024 8:00 AM EDT Procedure Visit [facility] [address] [place] [address] Capo Acuña, DPM [address] [place] [address] [facility] Start: 07-03-2024 End: 07-03-2024 Patient encounter procedure 07/03/2024 10:15 AM EDT Procedure Visit [facility] [address] [place] [address] Capo Acuña, DPM [address] [place] [address] [facility] Start: 05-03-2024 End: 05-03-2024 Patient encounter procedure 05/03/2024 9:00 AM EST Procedure Visit [facility] [address] [place] [address] Capo Acuña, DPM [address] [place] [address] Arrived [facility] Comment on above: Arrived Start: 04-27-2024 End: 04-27-2024 Patient encounter procedure 04/27/2024 10:45 AM EST [facility] [address] [place] [address] Capo Acuña, DPM [address] [place] [address] [facility] Start: 02-23-2024 End: 02-23-2024 Patient encounter procedure [facility] Comment on above: Arrived Start: 12-22-2023 End: 12-22-2023 Patient encounter procedure 12/22/2023 10:00 AM EDT Procedure Visit [facility] [address] [place] [address] Capo Acuña, DPM [address] [place] [address] Arrived [facility] Comment on above: Arrived Start: 12-19-2023 Influenza vaccination Influenz a Vaccine (#1) [facility] Immunizations Immunization Date Immunization Notes Care Provider Fa [facility] 03-17-2024 influenza virus vaccine, unspecified formulation Capo Acuña DPM Work Phone: [facility] 03-16-2023 SARS-CoV-2 mRNA (tozinameran 5y-11y) vaccine Sabina Mckeon [facility] Comment on above: Result Comment: covi d 19 vishal-sucrose 02-26-2023 influenza virus vaccine, unspecified formulation Capo Acuña DPM Work Phone: [facility] 02-23-2022 SARS-CoV-2 (COVID-19 ) [id number] Sabina Linda [facility] 02-10-2022 influenza virus vaccine, unspecified formulation Sabina Linda [facility] 11-12-2021 SARS-CoV-2 mRNA (ktrposxawyi-ijyy-zdowo se) vaccine Sabina Linda [facility] 01-23-2021 SARS-CoV-2 (COVID-19 ) mRNA BNT-162b2 vax Sabina Linda [facility] Comment on above: Result Comment: 2022: [id number] 06-12-2020 SARS-CoV-2 (COVID-19 ) mRNA BNT-162b2 vax Sabina Linda [facility] Comment on above: Result Comment: 2022: [id number] 05-22-2020 SARS-CoV-2 (COVID-19 ) mRNA BNT-162b2 vax Sabina Linda [facility] Comment on above: Result Comment: 2022: [id number] 01-26-2020 influenza virus vaccine, unspecified formulation Sabina Linda [facility] 04-19-2019 pneumococcal conjuga te vaccine, 13 valent Sabina Linda [facility] 02-23-2019 influenza virus vaccine, unspecified formulation Sabina Linda [facility] 05-25-2018 pneumococcal polysaccharide vaccine, 23 valent Sabina Linda [facility] 02-15-2018 influenza virus vaccine, unspecified formulation Sabina Linda [facility] 02-24-2017 influenza virus vaccine, unspecified formulation Sabina Linda [facility] 03-06-2016 pneumococcal conjuga te vaccine, 13 valent Sabina Linda [facility] 02-20-2016 influenza virus vaccine, unspecified formulation Sabina Linda [facility] 02-20-2014 influenza virus vaccine, unspecified formulation Sabina Linda [facility] 02-22-2013 influenza virus vaccine, unspecified formulation Sabina Linda [facility] 03-06-2010 influenza virus vaccine, unspecified formulation Sabina Linda [facility] 02-05-2009 influenza, whole Sabina Linda [facility] NEGATED: Highlighted row has not occurred!07-01-2021 influenza virus vaccine, unspecified formulation Sabina Linda [facility] [place] Payers Date Payer Category Payer Private Health Insurance [employer] [id number] 2020 Unknown [id number]. [id number] 2007 Medicare [id number] [id number]. [id number] 1959 Medicare [id number] 1959 Unknown [id number] 1942 Unknown [id number] 2.16.840.1.181883.3.579.2. 593 1942 Unknown [id number] 2.16.840.1.154226.3.579.2. 593 1942 Unknown [id number] 2.16.840.1.154520.3.579.2. 593 1942 Unknown [id number] 2.16.840.1.324233.3.579.2. 593 1942 Unknown [id number] 2.16.840.1.728463.3.579.2. 593 1942 Unknown [id number] 2.16.840.1.407849.3.579.2. 593 1942 Unknown [id number] 2.16.840.1.509401.3.579.2. 593 1942 Unknown [id number] 2.16.840.1.106138.3.579.2. 593 1942 Unknown [id number] 2.16.840.1.519975.3.579.2. 593 1942 Unknown [id number] 2.16.840.1.374809.3.579.2. 593 1942 Unknown [id number] 2.16.840.1.350213.3.579.2. 196 1942 Unknown [id number] 2.16.840.1.496322.3.579.2. 196 1942 Unknown [id number] 2.16.840.1.011720.3.579.2. 196 1942 Unknown [id number] 2.16.840.1.184639.3.579.2. 1259 1942 Unknown [id number] 2.16.840.1.572594.3.579.2. 1259 1942 Unknown [id number] 2.16.840.1.991978.3.579.2. 1258 1942 Unknown [id number] 2.16.840.1.539680.3.579.2. 1259 1942 Unknown [id number] 2.16.840.1.957130.3.579.2. 1258 1942 Unknown [id number] 2.16.840.1.194212.3.579.2. 1259 1942 Unknown [id number] 2.16.840.1.438874.3.579.2. 1942 Unknown [id number] 2.16.840.1.906302.3.579.2. 7 1942 Unknown [id number] 2.16.840.1.058496.3.579.2. 1942 Unknown [id number] 2.16.840.1.273838.3.579.2. 1942 Unknown [id number] 2.16.840.1.024294.3.579.2. 1942 Unknown [id number] 2.16.840.1.510818.3.579.2. 7 1942 Unknown [id number] 2.16.840.1.072200.3.579.2. 1942 Unknown [id number] 2.16.840.1.163304.3.579.2. 727 Social History Date Type Detail Facility Start: 11-03-2022 End: 02-02-2023 Tobacco smoking status Never smoked tobacco (finding) [facility] Comment on above: never Tobacco smoking status Never [facility] Comment on above: never Start: 12-22-2023 End: 09-21-2024 Sex Assigned At Female [facility] Start: 11-03-2022 Tobacco use and exposure Smokeless tobacco non-user [facility] Start: 12-22-2023 End: 11-27-2024 Alcoholic beverage intake Lifetime non-drinker (finding) [facility] Start: 12-22-2023 End: 09-21-2024 History of Social function [facility] Start: 01-13-2023 Alcohol Comment caffeine intak e: 2-3 cups per day coffee,chocolate [facility] Start: 1940 Sex assigned at Not on file N [facility] Medical Equipment Procedure Code Equipment Code Equipment Origin al Text Equipment Identifier Dates CATARACT EXTRACT ION W/ INTRAOCULAR LENS Fredy Moseley DO 04/30/20 Non Biological Eye L {[id number] [facility] Start: 04-30-2020 CATARACT EXTRACT ION W/ INTRAOCULAR LENS Fredy Moseley DO 05/14/20 Non Biological Eye R {[id number] [facility] Start: 05-14-2020 Clinical Notes 08-20-2021 to 12-07-2024 Capo Acuña DPM - 11/27/2024 10:15 AM Carmel Acuña DPM - 09/21/2024 9:30 AM Carmel Acuña DPM - 07/06/2024 8:00 AM Carmel Acuña DPM - 05/03/2024 9:00 AM EST Note Date & Type Note Facility 12-07-2024 Note Patient Education Cardiovascular Managing Your Hypertension Hypertension, also called high blood pressure, is when the force of the blood pressing against the butterfield of the arteries is too strong. Arteries are blood vessels that carry blood from your heart throughout your body. Hypertension forces the heart to work harder to pump blood and may cause the arteries to become narrow or stiff. Understanding blood pressure readings A blood pressure reading includes a higher number over a lower number: ??? The first, or top, number is called the systolic pressure. It is a measure of the pressure in your arteries as your heart beats. ??? The second, or bottom number, is called the diastolic pressure. It is a measure of the pressure in your arteries as the heart relaxes. For most people, a normal blood pressure is below 120/80. Your personal target blood pressure may vary depending on your medical conditions, your age, and other factors. Blood pressure is classified into four stages. Based on your blood pressure reading, your health care provider may use the following stages to determine what type of treatment you need, if any. Systolic pressure and diastolic pressure are measured in a unit called millimeters of mercury (mmHg). Normal ??? Systolic pressure: below 120. ??? Diastolic pressure: below 80. Elevated ??? Systolic pressure: 120?129. ??? Diastolic pressure: below 80. Hypertension stage 1 ??? Systolic pressure: 130?139. ??? Diastolic pressure: 80?89. Hypertension stage 2 ??? Systolic pressure: 140 or above. ??? Diastolic pressure: 90 or above. How can this condition affect me? Managing your hypertension is very important. Over time, hypertension can damage the arteries and decrease blood flow to parts of the body, including the brain, heart, and kidneys. Having untreated or uncontrolled hypertension can lead to: ??? A heart attack. ??? A stroke. ??? A weakened blood vessel (aneurysm). ??? Heart failure. ??? Kidney damage. ??? Eye damage. ??? Memory and concentration problems. ??? Vascular dementia. What actions can I take to manage this condition? Hypertension can be managed by making lifestyle changes and possibly by taking medicines. Your health care provider will help you make a plan to bring your blood pressure within a normal range. You may be referred for counseling on a healthy diet and physical activity. Nutrition ??? Eat a diet that is high in fiber and potassium, and low in salt (sodium), added sugar, and fat. An example eating plan is called the DASH diet. DASH stands for Dietary Approaches to Stop Hypertension. To eat this way: ? Eat plenty of fresh fruits and vegetables. Try to fill one-half of your plate at each meal with fruits and vegetables. ? Eat whole grains, such as whole-wheat pasta, brown rice, or whole-grain bread. Fill about one-fourth of your plate with whole grains. ? Eat low-fat dairy products. ? Avoid fatty cuts of meat, processed or cured meats, and poultry with skin. Fill about one-fourth of your plate with lean proteins such as fish, chicken without skin, beans, eggs, and tofu. ? Avoid pre-made and processed foods. These tend to be higher in sodium, added sugar, and fat. ??? Reduce your daily sodium intake. Many people with hypertension should eat less than 1,500 mg of sodium a day. Lifestyle ??? Work with your health care provider to maintain a healthy body weight or to lose weight. Ask what an ideal weight is for you. ??? Get at least 30 minutes of exercise that causes your heart to beat faster (aerobic exercise) most days of the week. Activities may include walking, swimming, or biking. ??? Include exercise to strengthen your muscles (resistance exercise), such as weight lifting, as part of your weekly exercise routine. Try to do these types of exercises for 30 minutes at least 3 days a week. ??? Do not use any products that contain nicotine or tobacco. These products include cigarettes, chewing tobacco, and vaping devices, such as e-cigarettes. If you need help quitting, ask your health care provider. ??? Control any long-term (chronic) conditions you have, such as high cholesterol or diabetes. ??? Identify your sources of stress and find ways to manage stress. This may include meditation, deep breathing, or making time for fun activities. Alcohol use ??? Do not drink alcohol if: ? Your health care provider tells you not to drink. ? You are , may be , or are planning to become . ??? If you drink alcohol: ? Limit how much you have to: ? 0?1 drink a day for women. ? 0?2 drinks a day for men. ? Know how much alcohol is in your drink. In the [place] one drink equals one 12 oz bottle of beer (355 mL), one 5 oz glass of wine (148 mL), or one 1? oz glass of hard liquor (44 mL). Medicines Your health care provider may prescribe medicine if lifestyle changes are not enough (more content not included)... [facility] 11-27-2024 History of Present illness Narrative Images from [...] Bala Guillory MD Date of Last visit 06/21/24 Aggravated by: shoe gear, pressure. Risk factors: curvature of nails. Examination: General Examination: GENERAL EXAMINATION: awake, aware of surroundings, in no acute distress. FOOT EXAM: Date of Last Foot Exam 11/27/24 Vascular: DORSALIS PEDIS PULSE: 2/4, bilaterally. POSTERIOR [...] the callous site. documented in this encounter [facility] 11-14-2024 Note Patient is here toda y for a 6 month follow up. Patient states she feels the same as always, lacking in energy. Patient states the SOB is better. Patient denies chest pain, leg swelling, dizziness/lighted ness, and palpitations. Patient would like the results of her labs done in June. [facility] 11-14-2024 Note SUBJECTIVE Reason for Visit: Nori Quezada is [...] before needing to take a rest due to shortness of breath, and now she can do [...] the following laboratory results above. These findings have been analyzed in the context of [...] all available cardiac diagnostic tests and imaging reports. Findings have been analyzed in the context of the patient's clinical status. Assessment and Plan #Hypertension Blood pressure today is 155/57 Elevated - Continue hydrochlorothiazide 25 mg - On losartan 25 mg twice daily ---> increase to 50 (more content not included)... [facility] 09-21-2024 History of Present illness Narrative Images from [...] FOOT EXAM: Date of Last Foot Exam 09/21/24 Vascular: DORSALIS PEDIS PULSE: 2/4, bilaterally. POSTERIOR [...] the callous site. documented in this encounter [facility] 07-06-2024 History of Present illness Narrative Images [...] therapy if needed. documented in this encounter [facility] 05-11-2024 Note [facility] Cardiology Clinic Note Chief Complaint: Here to [...] no current ca (more content not included)... [facility] 05-03-2024 History of Present illness Narrative Images [...] the callous site. documented in this encounter [facility] 04-10-2024 Note [facility] Cardiology Clinic Note Chief Complaint: New patient [...] after testing. Ian Sims MD, MPH, FACC, [facility], [facility] Interventional Cardiology Pager Email: [email or web address] 02-23-2024 History of Present illness Narrative Images [...] the callous site. documented in this encounter [facility] 02-15-2024 Note Patient Education Immunology Allergic Rhinitis, [...] and dust often. General instructions ??? Take bjjs-che-foowsnj and prescription medicines only as told by your doctor. ??? Drink enough fluid to keep your pee pale yellow. Where to find more information ??? [employer]: aaaai.org [...] provider. Document Revised: 12/14/2022 Document Reviewed: 12/14/2022 [employer] Patient Education ? 2023 [employer] [facility] 12-22-2023 History of Present illness Narrative [...] the callous site. documented in this encounter [facility] 09-24-2021 Note OPERATIVE NOTE OPERATION DATE: [...] the pathology report. CC: Brittany Freedman M.D. [facility] Signed and Approved by: DR LAMAR SEXTON . 09/25/2021 12:58:00 [facility] 08-20-2021 Note OPERATIVE NOTE OPERATION DATE: [...] after different prep. CC: Brittany Freedman M.D. [facility] Signed and Approved by: DR LAMAR SEXTON . 08/21/2021 07:27:00 [facility] Evaluation + Plan note Future Appointments Appointment Date:03/16/2023 09:00:00 AM Scheduled Provider:Sabina Ruth Location:[facility] Appointment Type:FM Open Appointment Date:12/03/2023 02:00:00 PM Scheduled Provider: Location:[facility] Appointment Type: Medicare Wellness Subsequent [facility] Evaluation + Plan note Future Appointments Appointment Date:11/25/2023 01:00:00 PM Scheduled Provider: Location:[facility] Appointment Type: Medicare Wellness Subsequent Appointment Date:02/24/2024 10:00:00 AM Scheduled Provider:Sabina Ruth Location:[facility] Appointment Type:[facility] Evaluation + Plan note Future Appointments Appointment Date:12/07/2024 11:00:00 AM Scheduled Provider: Location:[facility] Appointment Type: Medicare Wellness Subsequent [facility] Evaluation note Diagnosis Onychomycosis- Primary Dermatophytosis of [...] Plantar fascial fibromatosis [facility] Diagnosis Onychomycosis- Primary Dermatophytosis of nail Corns and callosities Other specified peripheral vascular diseases Pain in both feet [facility] Diagnosis Onychomycosis- Primary Dermatophytosis of nail Corns and callosities Other specified peripheral vascular diseases Pain in both feet [facility] N[facility] No data available for this [facility] No data available for this section [facility] No data available for this section [facility] Summary Purpose Family History No Family History [...] and content) DATE CREATED AUTHOR 07/25/2022 [facility] DATE CREATED AUTHOR AUTHOR'S ORGANIZ ATION 02/26/2024 [facility] DATE CREATED AUTHOR AUTHOR'S ORGANIZ ATION 07/18/2024 [facility] DATE CREATED AUTHOR AUTHOR'S ORGANIZ ATION 11/28/2024 [facility] DATE CREATED AUTHOR AUTHOR'S ORGANIZ ATION 11/29/2024 [facility] DATE CREATED AUTHOR AUTHOR'S ORGANIZ ATION 12/08/2024 [facility] DATE CREATED AUTHOR AUTHOR'S ORGANIZ ATION 12/09/2024 [facility] Patient Care team informatio n (unrecognized section and content) Pellet Press Operator Relationship Specialty Start Date End Date Awais Guillory MD [address] [place] [address] PCP - General Family Medicine 01/27/23 Pellet Press Operator Relationship Specialty Start Date End Date Awais Guillory MD [address] [place] [address] PCP - General Family Medicine 01/27/23 Pellet Press Operator Relationship Specialty Start Date End Date Awais Guillory MD PCP - General Family Medicine 01/27/23 Pellet Press Operator Relationship Specialty Start Date End Date Awais Guillory MD PCP - General Family Medicine 01/27/23 Pellet Press Operator Relationship Specialty Start Date End Date Awais Guillory MD [address] [facility] [place] [address] PCP - General Family Medicine 01/27/23 Pellet Press Operator Relationship Specialty Start Date End Date Awais Guillory MD [address] [facility] [place] [address] PCP - General [facility] 01/27/23 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 [facility]. provides no warranty or guarantee of the accuracy or completeness of information in this document.
--- NOTE | 2024-12-27 09:46 | MM_ITS ---
Patient Name: NIMCO PRESTON MR#: [id number] : 1940 Exam Date: 12/27/2024 Ordering Doctor: MARICHUY MICHEL . RADIOLOGY REPORT PROCEDURE: MM TOMOSYNTHESIS SCREENING BI COMPARISON: MM TOMOSYNTHESIS SCREENING BI, 12/27/2023. MM TOMOSYNTHESIS SCREENING BI, 12/24/2022. MG MAMM SCREEN 3D JAMES CAD, 12/19/2021. MG MAMM JAMES SCRN W CAD DIG, 04/17/2013. INDICATIONS: screening Calculator Name NCI Breast Cancer Risk Assessment Tool 5 Year Breast Cancer Risk 1.40% Lifetime Breast Cancer Risk 1.90% Personal Breast Cancer No Personal Ovarian Cancer No Treatments None Family Cancers Cousin-paternal with breast cancer at age 68; Father with colon cancer at age 67. LOCATION: [facility] BREAST COMPOSITION: The breasts are extremely dense, which lowers the sensitivity of mammography. FINDINGS: RIGHT BREAST: No significant suspicious finding. LEFT BREAST: No significant suspicious finding. DIAGNOSTIC CATEGORY 1--NEGATIVE. RECOMMENDATIONS: ROUTINE MAMMOGRAM AND CLINICAL EVALUATION IN 12 MONTHS. Dictated by: Wesley Dukes DO on 12/27/2024 at 12:19 Approved by: Wesley Dukes DO on 12/27/2024 at 12:56
== END 2024-12-27 09:38 | disposition home or self-care (01) ==
LOC: MAMMO 09:38
PROVIDERS: PCP Nurse Practitioner; Visit Provider Nurse Practitioner
DX: M81.0 Age-related osteoporosis without current pathological fracture (principal); Z12.31 Encounter for screening mammogram for malignant neoplasm of breast; Z80.3 Family history of malignant neoplasm of breast; Z80.0 Family history of malignant neoplasm of digestive organs
CPT/HCPCS: 77063; 77067; 77080

== ENCOUNTER 2025-02-07 12:54 | Outpatient (OUT) | payer MEDICARE, OTHER, SELFPAY ==
--- OUTSIDE RECORDS SUMMARY | 2025-02-05 09:45 | XMS_ITS | Encounter Summary ---
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); Shortness of breath Social History Tobacco UseTypesPacks/DayYears UsedDateSmoking Tobacco: NeverSmokeless Tobacco: NeverAlcohol UseStandard Drinks/WeekCommentsYes0 (1 standard drink = 0.6 oz pure alcohol)occasionallyCommentsUnknownSex and Gender InformationValueDate RecordedSex Assigned at JxqvyRmhrdw58/29/2025 10:13 AM EDTLegal SexFemale 04/03/2024 8:56 AM ESTGender KeqaxgrjXyxpzu45/29/2025 10:13 AM EDTSexual OrientationHeterosexual or Kzqlvzvg85/29/2025 10:13 AM EDTdocumented as of this encounter Last Filed Vital Signs Vital SignReadingTime TakenCommentsBlood Ltxvmuek698/6702/05/2025 9:59 AM EDT Wcwpl912202/05/2025 9:59 AM EDTTemperature--Respiratory Rate--Oxygen Saturation 100%02/05/2025 9:59 AM EDTInhaled Oxygen Concentration--Ahxeoa21.8 kg (187 lb) 02/05/2025 9:59 AM VTLHtmuzv015.2 cm (5' 7 )02/05/2025 9:59 AM EDTBody Mass Index29.291 9:59 AM EDTdocumented in this encounter Functional Status * BPAnswerDate of TmxjkguqzoAwdcgj173/6702/05/2025 9:59 AM EDChristy Sousa MA * PulseAnswerDate of BxyorzaylvAdedor3457/20/2025 9:59 AM Christy Fong MA * Patient PositionAnswerDate of ZqgwaqwgpbOoacrxVpyxpeo79/20/2025 9:59 AM EDT Christy Banda MA * BPAnswerDate of BlpxxehmerJwpknm257/6702/05/2025 9:59 AM Christy Fong MA * PulseAnswerDate of VwvvgcnhgyYgkuml4737/20/2025 9:59 AM Christy Fong MA * OwQ0HofilsXjxz of AutrxyidiuEzfcsa37195/20/2025 9:59 AM Christy Fong MA * BP LocationAnswerDate of AssessmentAuthorLeft arm02/05/2025 9:59 AM EDT Christy Banda MA * Patient PositionAnswerDate of MgcnaqsvwmKmuisnAmiwelh48/20/2025 9:59 AM EDT Christy Banda MA documented as of this encounter Progress Notes * Ian Sims MD - 02/05/2025 9:45 AM EDT Images from the original note were not included. [facility] Card[facility] Clinic Note Chief Complaint: Patient is [...] problems arise Ian Sims MD, MPH, FACC, [facility], [facility] Interventional Cardiology Pager Email: [email or web address] documented in this encounter Plan of Treatment DateTypeDepartmentCare Team (Latest Contact Info)Xtrxpayxgzo76/13/2026 10:30 AM ESTOffice Visit [facility] [address] [address] Ian Sims MD [address] [facility] [place] [address] NameTypePriorityAssociated DiagnosesOrder ScheduleBasic metabolic panelLab [...] DateEnd Date Sabina Mckeon, L[place] [address] [place] [address] PCP - GeneralNurse Fvsutaosfvyd05/20/24documented as of this encounter
--- OUTSIDE RECORDS SUMMARY | 2025-02-07 13:00 | XMS_ITS | Clinical Summary ---
Author Organization [facility] Address [address] [place] [address] Care Team Providers Care Agriculture Scientist Name Role Phone LindaAlessiadi MENTAL HEALTH NURSE-Kelsey Primary Care Provider [phone] Allergies Active AllergyReactionsCriticalityNoted DateCommentsCefuroximeItching,Other, BsnrhynCuoj18/23/2024 Medications MedicationSigDispense QuantityRefillsLast FilledStart DateEnd DateStatus alendronate (Fosamax) 70 mg tablet Take 70 mg by mouth every 7 (seven) days.12/17/2022ctive hydroCHLOROthiazide (Microzide) 12.5 mg capsule Take 25 mg by mouth in the morning.Active Klor-Con M20 20 mEq ER tablet Take 20 mEq by mouth in the morning.Active colestipol (Colestid) 1 gram tablet Take 1 g by mouth in the morning.Active aspirin 81 mg chewable tablet Indications:Coronary artery disease due to lipid rich plaqueChew 1 tablet (81 mg) in the morning. 90 tablet ctive atorvastatin (Lipitor) 40 mg tablet Indications:Coronary artery disease due to lipid rich plaqueTake 1 tablet (40 mg) by mouth in the morning. 90 tablet /ctive losartan (Cozaar) 50 mg tablet Indications:Primary hypertensionTake 1 tablet (50 mg) by mouth two times daily. 180 tablet /ctive dapagliflozin propanediol (Farxiga) 10 mg Indications:Acute combined systolic and diastolic heart failure (CMS/HCC)Take 1 tablet (10 mg) by mouth once daily as directed. 30 tablet /6Active Active Problems ProblemNoted DateDiagnosed DateLump in neck11/14/2024llergic rhinitis, seasonal 04/10/20248967Zesdrp09/23/2024MI 30.0-30.9,adult04/10/2024erumen impaction 04/10/2024hange in bowel tfgjjc7604/10/2024hest pain04/10/2024hronic UTI 04/10/20241760Vuxgi85/23/7394Juqffljsdabeto52/23/7447Vpogjfb46/23/2024GERD (gastroesophageal reflux disease)04/10/2024History of colonic tkemqh2704/10/2024 HTN (hypertension)04/10/20241707Vcmhzryoytsuywkrwk01/23/2024Leg tsdbjw2706/11/2023 Uzxwzwgsy24/23/2024Other fractures of lower end of left radius, subsequent encounter for closed fracture with routine sevepwt0404/10/2024Shortness of breath 04/10/2024Vitamin D jxkqkkxdan56/23/2024cquired hammer toe of left foot 01/27/2023cquired hammer toe of right foot01/27/20236155Tbojpyxipvrj16/11/2023 Zkewncfqofaos41/11/2023 Encounters DateTypeDepartmentCare ZogrAshlgpxrwxg48/20/2025 9:45 AM EDTOffice Visit [facility] [address] [place] [address] Ian Sims MD 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); Shortness of bohusn9611/28/2024Telephone [facility] [address] [place] [address] Connie Abrams MA 11/14/2024 10:20 AM EDTOffice Visit [facility] [address] [place] [address] Alfredito Lepe, JANET Primary hypertension (Primary Dx); Nonrheumatic aortic valve insufficiency; Carotid stenosis, bilateral; Mixed hyperlipidemiafrom Last 3 Months Family History Medical HistoryRelationNameCommentsNo Known ProblemsFatherNo Known Problems MotherRelationNameStatusCommentsFatherDeceasedMotherDeceased Social History Tobacco UseTypesPacks/DayYears UsedDateSmoking Tobacco: NeverSmokeless Tobacco: Never Tobacco Cessation:Counseling Given: Not Answered Alcohol UseStandard Drinks/WeekCommentsYes0 (1 standard drink = 0.6 oz pure alcohol)occasionallyCommentsUnknownSex and Gender InformationValueDate RecordedSex Assigned at MqqghSndqpi31/29/2025 10:13 AM EDTLegal SexFemale 04/03/2024 8:56 AM ESTGender PabtqugqItbwzc79/29/2025 10:13 AM EDTSexual OrientationHeterosexual or Waxmenkc04/29/2025 10:13 AM EDT Last Filed Vital Signs Vital SignReadingTime TakenCommentsBlood Mdkmfjcq203/6702/05/2025 9:59 AM EDT Dosac545702/05/2025 9:59 AM EDTTemperature--Respiratory Rate--Oxygen Saturation 100%02/05/2025 9:59 AM EDTInhaled Oxygen Concentration--Diudsu19.8 kg (187 lb) 02/05/2025 9:59 AM MVVWqzdwq104.2 cm (5' 7 )02/05/2025 9:59 AM EDTBody Mass Index29.291 9:59 AM EDT Plan of Treatment DateTypeDepartmentCare Team (Latest Contact Info)Fbuahgyqfkm12/13/2026 10:30 AM ESTOffice Visit [facility] [address] [place] [address] Ian Sims MD [address] [facility] [place] [address] Health MaintenanceDue DateLast DoneCommentsMedicare Annual Wellness (AWV) 3Depression Fjuqscdmg80/11/1955Adult Mvmrcyj2410/27/1964Zoster Vaccines (1 of 2)1992Fall Risk Algbdtrsl03/11/2008COVID-19 Vaccine ( season)5105/16/2022, 03/16/2023, 02/23/2022, Additional history exists Influenza Vaccine (#1)5105/17/2023, 02/26/2023, 02/10/2022, Additional history existsPneumococcal Vaccine: 50+ ZxvelRdwcyrugi34/01/2020, 05/25/2018, 03/06/2016HIB VaccinesAged OutNo longer eligible based on patient's age to complete this topicHPV VaccinesAged OutNo longer eligible based on patient's age to complete this topicIPV VaccinesAged OutNo longer eligible based on patient's age to complete this topicMeningococcal B VaccineAged OutNo longer eligible based on patient's age to complete this topicMeningococcal VaccineAged OutNo longer eligible based on patient's age to complete this topicRotavirus Vaccines Aged OutNo longer eligible based on patient's age to complete [place] [address] Care Teams Team MemberRelationshipSpecialtyStart DateEnd Date Sabina Mckeon FNP-C [address] [place], [place] [id number] PCP - GeneralNurse Dgnixrmjbsed46/20/24
--- OUTSIDE RECORDS SUMMARY | 2025-02-07 13:00 | XMS_ITS | Clinical Summary ---
Author Organization [facility] Address [address], [address] [address] Care Team Providers Care Steeple Jack Name Role Phone Unavailable Primary Care Provider Unavailabl e Social History Tobacco UseTypesPacks/DayYears UsedDateSmoking Tobacco: Never Assessed CommentsUnknownSex and Gender InformationValueDate RecordedSex Assigned at Zxyynb7512/06/2023 4:28 PM EDTLegal KrhDycufs61/19/2024 4:25 PM EDTGender Identity Vzkbbd3712/06/2023 4:28 PM EDTSexual UhmtbzryojkFclokrux62/19/2024 4:28 PM EDT Plan of Treatment Not on file
--- OUTSIDE RECORDS SUMMARY | 2025-02-07 13:00 | XMS_ITS | CCD ---
Author Organization [facility] Care Team Providers Care Mobile Equipment Operator Name Role Phone FREEDMAN ., DR BRITTANY Oh Consulting Unavailable FREEDMAN ., DR BRITTANY Oh Attending Unavailable FREEDMAN ., DR BRITTANY Oh Admitting Unavailable FREEDMAN ., DR BRITTANY Oh Primary Care Unavailable JUAQUIN, DR BERNARD Lopez Consulting Unavailable FREEDMAN ., DR BRITTANY Oh Admitting Unavailable FREEDMAN ., DR BRITTANY Oh Primary Care Unavailable FREEDMAN ., DR BRITTANY Oh Attending Unavailable DOMENICO, DR ORVILLE Beck Admitting Unavailable DOMENICO, DR ORVILLE Beck Consulting Unavailable FREEDMAN ., DR BRITTANY Oh Primary Care Unavailable DOMENICO, DR ORVILLE Beck Attending Unavailable KENY LIZ [...] Unavailable Linda, Sabina Hall Primary Care Physician Awais Guillory MD Primary Care Provider Awais Guillory MD Primary Care Provider Linda [employer] SUPERVISOR, Sabina Burroughs Primary Care Michaela Bojorquez MD, Zheng Thompson Attending Rosa Isela Bojorquez MD, Zheng Thompson Attending Nisavai lable Linda [employer] SUPERVISOR, Sabina Burroughs Primary Care Unava ilable Linda [employer] SUPERVISOR, Sabina Burroughs Primary Care Nisava yasir Bojorquez MD, Zheng Thompson Attending Unavai re ACUÑA, CAPO H Attending Unavailable ACUÑA, CAPO H Attending Unavailable ACUÑA, CAPO H Attending Unavailable ACUÑA, CAPO H Attending Unavailable ACUÑA, CAPO H Attending Unavailable ACUÑA, CAPO H Attending Unavailable Linda, Sabina L Attending Unavailable ANNE, MONICA Atkinson Attending Unavailable Linda, Sabina Hall Attending Unavailable Linda, Sabina Hall Attending Unavailable Linda, Sabina L Admitting Unavailable Linda, Sabina Hall Attending Unavailable Linda, Sabina Hall Attending Unavailable Linda, Sabina L Admitting Unavailable Linda, Sabina Hall Attending Unavailable Linda, Sabina Hall Attending Unavailable Linda, Sabina Hall Attending Unavailable [place], EHAB Attending Unavailable [place], EHAB Attending Unavailable LIONEL, ALFREDITO Attending Unavailable [place], EHAB Attending Unavailable Allergies Allergy ClassificationReported Allergen(s)Allergy TypeDate of OnsetReaction(s) Facility (3 sources)Amitriptyline; Translations: [amitriptyline]Drug AllergyThe [facility] (1 source)CephalexinDrug Qsvbqvx50-53-0311Hiu [facility] Repository (3 sources)Amitriptyline; Translations: [amitriptyline]Drug AllergyUnknown (qualifier value)[facility] [place] (6 sources)Cefuroxime; Translations: [cefuroxime]Drug Xjxrtoa70-47-3589Igyknqa and collapse (disorder), Itching (finding)[facility] (3 sources)No Known Medication Allergies; Translations: [No Known Medication Allergies]Propensity to adverse reactions to drug (disorder)[facility] Repository Medications Current Medications MedicationDrug Class(es)DatesSig (Normalized)Sig (Original)acetaminophen 300 mg / butalbital 50 mg oral tablet (11 sources)Barbituratetake 1 tablet by mouth every four to six hours as needed Butalbital-Acetaminophen 50-300 MG tablet 1 tablet as needed Orally every 4-6 hours as needed Activeacetaminophen 325 mg / butalbital 50 mg / caffeine 40 mg oral tablet (2 sources)Barbiturate, Central Nervous System Stimulant, MethylxanthineStart: 89-68-4646eazu 1 tablet by mouth every four hoursAPAP/butalbital/caffeine 325 mg-50 mg-40 mg Tab 1 tab(s), Oral, q4hr Headache, 30 tab(s), Refill(s)0, [facility]/pharmacy #[id number], 166, cm, 03/16/23 9:10:00 EST, Height/Length Dosing, 85.6, kg, 03/16/23 9:10:00 EST, Weight Dosing Start Date: 03/16/23 Status: Ordered alendronic acid 70 mg oral tablet (14 sources)BisphosphonateStart: 45-44-5864zjnqmylprqb 70 mg Tab See Instructions, TAKE 1 TABLET ONCE EVERY 7 DAYS, # 12 tab(s), Refills(s) 0, Pharmacy: [facility] STORE [id number], 167.5, cm, 12/24/23 10:08:00 EDT, Height/Length Dosing, 83.2, kg, 12/24/23 10:08:00 EDT, Weight Dosing Start Date: 02/10/24 Status: OrderedStart: 07-61-4716qsehvqllxre 70 mg Tab 70 mg = 1 tab(s), Oral, q7day, # 12 tab(s), Refills(s) 0, Pharmacy: [facility]/pharmacy #[id number], 166, cm, 08/24/23 8:56:00 EDT, Height/Length Dosing, 84, kg, 08/24/23 8:56:00 EDT, Weight Dosing Start Date: 08/24/23 Status: OrderedStart: 24-55-0505upvz 1 tablet by mouth every weekalendronate (Fosamax) 70 MG tablet Take 70 mg by mouth 1 (one) time per week. 12/17/2022 Activeamoxicillin 500 mg oral capsule (1 source)Penicillin-class AntibacterialStart: 77-32-4024ywfhlemfptx 500 mg Cap See Instructions, TAKE 4 CAPSULES BY MOUTH 1/2 HOUR BEFORE PROCESURE AND 2 CA PSULES 4 HOURS AFTER, # 6 caplet(s), Refills(s) 1, Pharmacy: [facility]/pharmacy #[id number], 166, cm, 08/24/23 8:56:00 EDT, Height/Length Dosing, 84, kg, 08/24/23 8:56:00 EDT, Weight Dosing Start Date: 08/24/23 Status: Orderedazithromycin 250 mg oral tablet (1 source)Macrolide AntimicrobialStart: 02-24-2024 End: 34-62-8418dxwkorlfrzaz 250 mg Tab = 1 packet(s), Oral, As Directed, as directed on package labeling, X 5 day(s), # 6 tab(s), Refills(s) 0, [id number] 167.5, cm, 02/24/24 10:05:00 EST, Height/Length Dosing, 83.8, kg, 02/24/24 10:05:00 EST, Weight Dosing Start Date: 02/24/24 Stop Date: 02/29/24 Status: Orderedcalcium carbonate 1500 mg oral tablet (3 sources)Start: 08-59-9665ayyy 1 tablet by mouth once dailycalcium (as carbonate) 600 mg oral tablet 600 mg = 1 tab(s), Oral, Daily, Prophylaxis Start Date: 04/29/20 Status: OrderedCelebrate Multivitamin oral capsule (3 sources)Start: 90-39-1043lvvf 1 capsule by mouth once dailyCelebrate Multivitamin oral capsule 1 cap(s), Oral, Daily, Prophylaxis Start Date: 04/29/20 Status: Orderedcolestipol hydrochloride 1000 mg oral tablet (14 sources)Bile Acid SequestrantStart: 57-60-3668tyba 1 tablet by mouth once dailycolestipol 1 g Tab See Instructions, TAKE 1 TABLET BY MOUTH EVERY DAY, # 90 tab(s), Refills(s) 1, Pharmacy: [facility] STORE [id number], 166, cm, 08/24/23 8:56:00 EDT, Height/Length Dosing, 84, kg, 08/24/23 8:56:00 EDT, Weight Dosing Start Date: 10/26/23 Status: OrderedStart: 94-55-5022zxgl 1 tablet by mouth once dailyColestid 1 g Tab 1 gm = 1 tab(s), Oral, Daily, # 90 tab(s), Refills(s) 1, [id number] 166, cm, 03/16/23 9:10:00 EST, Height/Length Dosing, 85.6, kg, 03/16/23 9:10:00 EST, Weight Dosing Start Date: 04/27/23 Status: OrderedStart: 20-69-4206gsqw 1 tablet by mouth in the morningcolestipol (Colestid) 1 g tablet Take 1 g by mouth in the morning. 01/20/2023 ActiveStart: 89-34-3702sqte 1 tablet by mouth once daily in the morningColestid 1 g oral tablet 1 gm = 1 tab(s), Oral, qAM, Refills(s) 0 Start Date: 04/07/21 Status: Ordered hydroCHLOROthiazide 12.5 mg oral capsule (3 sources)Thiazide DiureticStart: 82-19-7469etdn 1 capsule by mouth once daily hydrochlorothiazide 12.5 mg Cap See Instructions, TAKE 1 CAPSULE BY MOUTH EVERY DAY, # 90 cap(s), Refills(s) 3, Pharmacy: [facility] [id number], 167.5, cm, 12/24/23 10:08:00 EDT, Height/Length Dosing, 83.2, kg, 12/24/23 10:08:00 EDT, Weight Dosing Start Date: 01/18/24 Status: OrderedStart: 51-30-3701eqag 1 capsule by mouth once dailyhydrochlorothiazide 12.5 mg Cap 12.5 mg = 1 cap(s), Oral, Daily, # 90 cap(s), Refills(s) 3, [id number], 166, cm, 02/02/23 8:45:00 EDT, Height/Length Dosing, 85, kg, 02/02/23 8:45:00EDT, Weight Dosing Start Date: 02/26/23 Status: OrderedStart: 41-15-8284nmzx 1 capsule by mouth once dailyhydrochlorothiazide 12.5 mg Cap 12.5 mg = 1 cap(s), Oral, Daily, # 30 cap(s), Refills(s) 2, [id number], 166, cm, 02/02/23 8:45:00 EDT, Height/Length Dosing, 85, kg, 02/02/23 8:45:00EDT, Weight Dosing Start Date: 02/02/23 Status: Orderedlosartan potassium 25 mg oral tablet (14 sources)Angiotensin 2 Receptor BlockerStart: 12-08-2022 End: 07-94-9624fxkm 1 tablet by mouth in the morninglosartan (Cozaar) 25 MG tablet Take 25 mg by mouth in the morning and 25 mg before bedtime. 12/08/2022 ActivemethylPREDNISolone 4 mg oral tablet (1 source)CorticosteroidStart: 02-24-2024 End: 99-94-5843Fwnfat 4 mg Tab = 1 packet(s), Oral, As Directed, as directed on package labeling, X 6 day(s), # 21tab(s), Refills(s) 0, [id number], 167.5, cm, 02/24/24 10:05:00 EST, Height/LengthDosing, 83.8, kg, 02/24/24 10:05:00 EST, Weight Dosing Start Date: 02/24/24 Stop Date: 03/01/24 Status: OrderedMisc Medication (1 source)Start: 23-95-3086Aplu Medication Daily Start Date: 12/01/22 Status: OrderedNature's Bounty Red Krill Oil (2 sources)Start: 70-62-5857pgak 500 mg by mouth once dailyNature's Bounty Red Krill Oil 500 mg, Oral, Daily, Refill(s) 0 Start Date: 12/01/22 Status: Ordered microencapsulated potassium chloride 20 meq extended release oral tablet (4 sources)Start: 16-21-6383wddl 1 tablet by mouth once dailyKlor-Con M20 oral tablet, extended release See Instructions, TAKE 1 TABLET BY MOUTH EVERY DAY, # 90tab(s), Refills(s) 1, Pharmacy: [facility] STORE [id number], 167.5, cm, 12/24/23 10:08:00 EDT, Height/Length Dosing, 83.2, kg, 12/24/23 10:08:00 EDT, Weight Dosing Start Date: 01/18/24 Status: OrderedStart: 27-43-4821dfmt 1 tablet by mouth once daily Klor-Con M20 oral tablet, extended release 20 mEq = 1 tab(s), Oral, Daily, # 90 tab(s), Refills(s) 1, Pharmacy: [facility]/pharmacy #[id number], 166, cm, 08/24/23 8:56:00 EDT, Height/Length Dosing, 84, kg, 08/24/23 8:56:00 EDT, Weight Dosing Start Date: 08/24/23 Status: OrderedProbiotic (1 source)Start: 75-80-3016pjhe 1 tablet by mouth once dailyProbiotic Probiotic, 1 tab, Oral, Daily Start Date: 12/02/23 Status: OrderedVitamin D3 (3 sources)Start: 86-49-6940vpgx 50 ug by mouth once dailyVitamin D3 50 mcg, Oral, Daily, Prophylaxis Start Date: 04/29/20 Status: Ordered Completed/Discontinued Medications MedicationDrug Class(es)DatesSig (Normalized)Sig (Original)albuterol 0.83 mg/ml inhalation solution (15 sources)beta2-Adrenergic AgonistStart: 04-93-9252znpqupxbn 0.083% Inh Yaima 3 mL See Instructions, 30 EA, Refill(s) 1, INHALE CONTENTS OF 1 VIAL VIA NEBULIZER EVERY 4 HOURS*J45.909*, [facility]/pharmacy #[id number], 167.5, cm, 02/24/24 10:05:00 EST, Height/LengthDosing, 83.8, kg, 02/24/24 10:05:00 EST, Weight Dosing Start Date: 02/24/24 Status: OrderedStart: 16-59-5806iebizfcpz NEB, q4hr, PRN Allergy symptoms, Refills(s) 0 Start Date: 12/01/22 Status: Orderedtake 2 puff(s) by inhalation every six hours as neededalbuterol HFA (Ventolin HFA) 90 mcg/act inhaler Inhale 2 puffs every 6 (six) hours if needed (only as needed). Active Problems Active Problems Problem ClassificationProblemDateDocumented DateEpisodic/ChronicAcquired foot deformities (11 sources)Acquired hammer toe of left foot; Translations: [Other hammer toe(s) (acquired), left foot]Onset: 802866-37-6584XedbnvcAetlktqu foot deformities (11 sources)Acquired hammer toe of right foot; Translations: [Other hammer toe(s) (acquired), right foot]Onset: 977912-02-2666DvbxredFapfjn (4 sources)Unspecified asthma, uncomplicated; Translations: [Asthma]Onset: 390820-21-5846JzsjhwfDrmjqjwvrz associated with dizziness or vertigo (4 sources)Benign paroxysmal vertigo, unspecified ear; Translations: [BENIGN PAROXYSMAL VERTIGO UNS EAR]Onset: 05-22-4876YjjykggbImeurxjaml heart failure; nonhypertensive (2 sources)Acute combined systolic (congestive) and diastolic (congestive) heart failure; Translations: [Acutecombined systolic (congestive) and diastolic (congestive) heart failure]Onset: 04-45-8382RnrgremKfctgznrv of lipid metabolism (3 sources)Hypercholesterolemia; Translations: [Mixed hyperlipidemia]Onset: 318105-17-4384MvunxjrMhwjbehvwsdkqr and diverticulitis (4 sources)Diverticulosis of large intestine without perforation or abscess without bleeding; Translations: [Diverticular disease]Onset: 09-30-2021 57-73-8122AyeotytOcnkkejuzq disorders (4 sources)Gastro-esophageal reflux disease without esophagitis; Translations: [Gastroesophageal reflux disease]Onset: 117657-00-4787KwcyjpzPzcshzihy hypertension (6 sources)Essential (primary) hypertension; Translations: [Hypertensive disorder]Onset: 158036-43-0751IbjbxulLzzdpmwu; including migraine (3 sources)Lapuzkpv07-86-4764JootdtvIhawy valve disorders (2 sources)Nonrheumatic aortic (valve) insufficiency; Translations: [Nonrheumatic aortic (valve) insufficiency]Onset: 34-56-8737DekgiifCborncc and fatigue (7 sources)Other fatigue; Translations: [Fatigue]Onset: 96-39-0892Bslltzrd Mycoses (6 sources)Onychomycosis; Translations: [Tinea unguium]22-43-7461Ncaysreu Nonspecific chest pain (1 source)Chest puio85-98-5695TiavqdumLjoricykkvo deficiencies (4 sources)Vitamin D deficiency, unspecified; Translations: [Vitamin D deficiency]Onset: 662778-10-9355ItbvdbfDxsodrwsb or stenosis of precerebral arteries (2 sources)Occlusion and stenosis of bilateral carotid arteries; Translations: [Occlusion and stenosis of bilateral carotid arteries]Onset: 19-59-8301Bvbxaiu Osteoporosis (15 sources)Age-related osteoporosis without current pathological fracture; Translations: [Osteoporosis]Onset: 470982-21-8677IomxtjzGmwuq and unspecified benign neoplasm (3 sources)History of polyp of -18-0660IrkkxmjuJnimx circulatory disease (7 sources)Peripheral vascular disease; Translations: [Other specified peripheral vascular diseases]64-82-9053CgzejknWrwkr congenital anomalies (11 sources)Porokeratosis; Translations: [Other specified congenital malformations of skin]Onset: 452278-52-0824KvngpsfJuiey connective tissue disease (1 source)Presence of right artificial knee joint; Translations: [PRESENCE RT ARTIFICIAL KNEE JOINT]Onset: 11-07-9492DktbrylJkfed connective tissue disease (2 sources)Cramp in lower woyd60-59-6995LzxyjafcJeicn connective tissue disease (5 sources)Pain in both feet; Translations: [Pain in right foot]02-23-2024 EpisodicOther connective tissue disease (1 source)Plantar fasciitis; Translations: [Plantar fascial fibromatosis] 39-28-5823AirdnkjpHvdyh ear and sense organ disorders (2 sources)Impacted wrssuyb91-02-0718IahgdzhyWcube gastrointestinal disorders (1 source)Irritable bowel syndrome without diarrhea; Translations: [IRRITABLE BOWEL SYND W/O DIARRHEA]Onset: 43-57-1533PeiinhqJnjaq gastrointestinal disorders (3 sources)Alteration in bowel -69-1183OriywznqSciqy lower respiratory disease (6 sources)Shortness of breath; Translations: [SHORTNESS OF BREATH]Onset: 89-26-6250WlflluocBypgz lower respiratory disease (1 source)Hvffn16-87-6941BhjmbdrrFqapn lower respiratory disease (1 source)Ztdmopt30-53-6996BzmbbwzmLtgyr non-traumatic joint disorders (1 source)Hip rieq92-17-1179SuqjoftiQyioj nutritional; endocrine; and metabolic disorders (3 sources)Body mass index 30+ - ojkuika19-45-9666WtyktpkElunt nutritional; endocrine; and metabolic disorders (1 source)Body mass index 25-29 - cbycqxvoqz94-28-6023NgafshdqSqrvs nutritional; endocrine; and metabolic disorders (1 source)Overweight in adulthood with body mass index of 25 or more but less than 8437-12-3243SiynpywoLgrbg skin disorders (6 sources)Callosity; Translations: [Corns and callosities]81-15-2550Nlvrilyh Other upper respiratory disease (3 sources)Seasonal allergic -98-8891YuubxjoBlezxwmkvhwn (3 sources)CONTACT W/AND (SUSP) EXPOS COVID-19; Translations: [CONTACT W/AND (SUSP) EXPOS COVID-19]Onset: 58-60-3255Cpuahnh tract infections (3 sources)Chronic urinary tract oqcttlwfr69-23-7921Ponhecat Past or Other Problems Problem ClassificationProblemDateDocumented DateEpisodic/ChronicAnal and rectal conditions (1 source)Rectal polyp; Translations: [RECTAL POLYP]Onset: 28-43-5759PlttxgnfU Codes: Adverse effects of medical drugs (1 source)Adverse effect of cephalosporins and other beta-lactam antibiotics, initial encounter; Translations: [ADVERS EFF CEPHALOSPOR OTH KYLE INIT]Onset: 68-00-1857PxyrnlqyFawyjifhpfomv symptoms and ill-defined conditions (1 source)Personal history of urinary (tract) infections; Translations: [PERS HX URINARY TRACT INFECTIONS]Onset: 01-03-8086OwigeadfVbzhr aftercare (1 source)Other chcf (current) drug therapy; Translations: [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 DRUG THERAPY]Onset: 07-13-6752GoutuehyOwcnd and unspecified benign neoplasm (4 sources)Personal history of colonic polyps; Translations: [PERSONAL HISTORY OF COLONIC POLYPS]Onset: 26-36-3829UdrexmklKernb connective tissue disease (4 sources)Pain in left lower leg; Translations: [PAIN IN LEFT LOWER LEG]Onset: 96-55-2873TpqxyvprSnsdh gastrointestinal disorders (4 sources)Change in bowel habit; Translations: [CHANGE IN BOWEL HABIT]Onset: 59-43-4193GkzwziafXidjy inflammatory condition of skin (1 source)Pruritus, unspecified; Translations: [PRURITUS UNSPECIFIED]Onset: 02-92-7868ZtzspjetGwpdu lower respiratory disease (2 sources)Other forms of dyspnea; Translations: [Other forms of dyspnea]Onset: 45-96-4245HcokemruPdjps screening for suspected conditions (not mental disorders or infectious disease) (4 sources)Encounter for screening mammogram for malignant neoplasm of breast; Translations: [ENC SCR MAMMO MALIG NEOPLASM BREAST]Onset: 33-01-0208Agtuuhcy Other skin disorders (1 source)Localized swelling, mass and lump, left lower limb; Translations: [LOC SWELL MASS LUMP LT LOWER LIMB]Onset: 49-33-6820GxfimusdGcsomnxk codes; unclassified (1 source)Family history of malignant neoplasm of digestive organs; Translations: [FAM HX MALIG NEOPLASM DIGESTIV ORGN]Onset: 88-01-3310Fywkfkax Residual codes; unclassified (1 source)Family history of malignant neoplasm of breast; Translations: [FAMILY HX MALIG NEOPLASM OF BREAST]Onset: 83-19-1673TdvdobifWpauajjx codes; unclassified (1 source)Acquired absence of other specified parts of digestive tract; Translations: [ACQ ABSENCE OTH PART DIGESTV TRACT]Onset: 36-20-8708Aekzzboy Unclassified (1 source)CONTACT W/AND (SUSP) EXPOS COVID-19; Translations: [CONTACT W/AND (SUSP) EXPOS COVID-19]Onset: 12-02-2021 Results Test NameValueInterpretationReference RangeFacilityOffice Visiton 02-05-2025 Follow-up [id number] Nori Quezada 1940 F Date Provider Department Center 02/05/2025 [id number]-[id number], IAN CARD [facility] Family History Problem Relation Age of Onset No Known Problems Mother No Known Problems Father Family Status - Relation Status Age at Mother Father Level of Service:31[address] [place] OFFICE/OUTPATIENT ESTABLISHED MOD [facility]DM [facility] Summaryon 12-07-2024 Ambulatory Visit SummaryAmbulatory Visit Summary NORI QUEZADA :1940 Visit Date:12/07/2024 [...] Sabina Ruth This Is Your Medications List APAP/butalbital/caffeine (APAP/butalbital/caffeine 325 mg-50 mg-40 mg Tab) Non-Formulary Medication [...] Multivitamin oral capsule) potassium chloride (Potassium Chloride (Sme-Oqpj-Uxa M20) 20 mEq oral tablet, extended release) Procedures Performed Cataract extraction and insertion of intraocular lens (05/14/2020), Cataract extraction and insertion of intraocular lens (04/30/2020), Colonoscopy (11/25/2016), Colonoscopy (10/11/2013), Colonoscopy(09/28/2012), Appendectomy, Arthroplasty of knee, Cervical polypectomy, Cholecystectomy, Cystoscopy, Urethral dilatation. Discharge Vitals Heart Rate (Peripheral) 65 Blood Pressure 136/70 Height 167.9 cm Height 66 in Weight 84.2 kg Weight 185.629 lb BMI 29.87 What to do next Scheduled Follow-Up Appointments Wednesday 10:40 AM EST With: Sabina Ruth Where: [address] [id number]- [id number] 11:00 AM EDT With: Where: [address] [address]- Medications What How Much When Instructions Unchanged [...] Every day Unchanged potassium chloride (Potassium Chloride (Kxx-Yazr-Wbj M20) 20 mEq oral tablet, extended release) [...] cells. The liver prabhakar (more content not included)...[facility] Medicine Office/Clinic Noteon 64-47-8026Mgvkcn Medicine Office[facility]Fa[facility]/Clinic Note Chief Complaint Subsequent Medicare [...] of clutter to prevent tripping and/or falling. [place] Advance Directives reviewed, are present in chart. Patient is not an organ donor. Patient denies any problems with ADL???s and Instrumental ADL???s. Cognitive screening completed with memory and clock face drawing. Immunization Record reviewed with the patient. Discussed Shingrix vaccine and availability, handoutprovided. COVID vaccines have been received. Immunization record [...] management of her Osteopenia. Denies any bone painor discomfort. Patient has no reports of fractures. Reviewed recommended bone mineral density testing for women who are 65 years of age or older. Patient has routine DEXA scans, last was 12/24/2022. Next DEXA will be do 12/2022. Educational handout for Bone Health reviewed and provided to the dolly ent during today's Medicare Wellness visit. Encouraged bone healthy diet, eating a well-balanced diet with plenty of Calcium and Vitamin D will help to protect your bones. Daily weight-bearing physical activity can help build strong bones, improve bone amounts, and decrease the risk of further bonedecline. DEXA Scan ordered and faxed to [facility] per patient request. 3. Breast cancer screening by mammogram (Z12.31: Encounter for screening mammogram for malignant neoplasm of breast) Recommended mammogram screening discussed with patient during today's Medicare Wellness visit. Patient reminded with the importance of continued Breast Self- Awareness at home. Easy to read demonstration on how to perform a self breast exam: What to look for and feel for was reviewed and provided topatient. Mammogram ordered and faxed to [facility] per patient request. Pt has been advised no deodorant, sprays or lotions. 4. GERD (gastroesophageal reflux disease) (K21.9: Gastro-esophageal reflux disease without esophagitis) Patient is aware of diet changes with healthier eating habits, such as not eating late at night, losing or maintaining a healthy weight. Importance of not smoking and avoiding and/or reducing alcoholintake. Avoid tight clothing around the waist line and try to avoid spicy or high acid f (more content not included)...[facility] HospitalComment on above:Result Comment: Electronically Signed By: Sabina Ruth\.br\Date and Time Signed: 12/07/24 14:21 EDT\.br\Electronically Co-Signed By: Renu Yang\.br\Date and Time Co- Signed: 12/07/24 13:21 PXY00on 91-95-225178UR for patient letting her know Alfredito reviewed her BP/HR log. He said BP looked better controlled so continue current medications.[facility] 93-93-9650Jwcktb-up [id number] Nori Quezada 1940 F Date Provider Department Center 11/14/2024 [id number], ADAM KARIN Pike Family History Problem Relation Age of Onset No Known Problems Mother No Known Problems Father Family Status - Relation Status Age at Mother Father Level of Service:64426 [place] OFFICE/OUTPATIENT ESTABLISHED MOD MDM [facility]on 07-17-2024 Orthopedic Office/Clinic NoteChief Complaint Patient here for yearly bilateral knee total knee replacements. Right TKR- 05/22/19. Left TKR- 03/25/20. States doing well. XR today BVO. History of Present Illness 83-year-old white female with bilateral total knee arthroplasties right side May 2019 and leftside March 2020. She reports doing well and is alone for the appointment today. She has some occasional tightness in the calf muscle behind the left total knee but overall does not have any injuryand reports no fevers or chills. Review of [...] today and appears to be doing well. Restrictions/precautions reinforced. Dental prophylaxis policy also reinforced. Recommend yearly follow-ups with x-rays to rule out loosening or polyethylene w ear. All questions are answered to the patient's satisfaction today. Medical Decision Making Chronic conditions NOT treated during this visit that affected my overall medical decision making: [] Treatment plans discussed but not opted for at this time: [] Prescribed medication that requires intensive monitoring for toxicity: [] I have reviewed the patient?s medication list for medication interactions/contraindications and/or for upcoming procedures: [yes or no] [...] appropriate based on AP and lateral images. joyce Signed By: [place] EDEN, Zheng Thompson Electronically signed by (more content not included)... [facility] 1 or 2 Views Bilateralon 07-17-2024 XR Knee 1 or 2 Views Bilateral_EXAM: Standing 2 views bilateral knees IMPRESSION: Status post bilateral total knee arthroplasty with excellent prosthetic alignment no evidence of any significant periprosthetic lucencies or polyethylene wear. No evidence of fracture or dislocation. Patellofemoral alignment appears appropriate based on AP and lateral images. jjd Final Signed by: Zheng Bojorquez MD Signed (Electronic Signature): 07/17/2024 1:00 pm Transcribed DT/TM: 07/17/2024 1:00 (If Report Is Signed, Electronically Signed in Other Vendor System)[facility] CenterAmbulatory Visit Summaryon [id number] Visit SummaryAmbulatory Visit Summary NORI QUEZADA :1940 Visit Date:07/13/2024 Ambulatory Visit Instructions Your Diagnosis Lump in neck Non-smoker BMI 30.0-30.9,adult Your Care Team Attending Physician - Sabina Ruth Primary Care Physician - Sabina Ruth This Is Your Medications List APAP/butalbital/caffeine (APAP/butalbital/caffeine 325 mg-50 mg-40 mg Tab) Non-Formulary Medication [...] intraocular lens (04/30/2020), Colonoscopy (11/25/2016), Colonoscopy (10/11/2013), Colonoscopy(09/28/2012), Appendectomy, Arthroplasty of knee, Cervical polypectomy, Cholecystectomy, Cystoscopy, Urethral dilatation. Discharge Vitals Temperature (Oral) 36.1 ???C Heart Rate (Peripheral) 76 Respiratory Rate 20 Blood Pressure 128/88 Height 165.7 cm Height 65 in Weight 83.5 kg Weight 184.086 lb BMI 30.41 What to do next Scheduled Follow-Up Appointments 2024 11:00 AM EDT Where: [place] [id number]- Medications What How Much When Instructions Unchanged [...] you for choosing us for your care. [facility] Medicine Office/Clinic Noteon 50-87-4555Zzpskn Medicine Office/Clinic NoteBrigham And Women'[facility] Medicine Office/Clinic Note HPI Staff Nori is [...] order u/s to confirm. order faxed to [facility]. 2. Non-smoker (Z78.9: Other specified health status) continue not smoking Ordered: losartan, 25 mg = 1 tab(s), Oral, BID, # 180 tab(s), Refills(s) 3, Pharmacy: [facility]/pharmacy #[id number], 167.5, cm, 02/15/24 11:55:00 EDT, Height/Length [...] intraocular lens (04/30/2020), Colonoscopy (11/25/2016), Colonoscopy (10/11/2013), Colonoscopy(09/28/2012), Appendectomy, Arthroplasty of knee, Cervical polypectomy, Cholecystectomy, Cystoscopy, Urethral dilatation. Medications albuterol, NEB, q4hr, PRN albuterol 0.083% Inh Yaima 3 mL, 2.5 mg= 3 mL albuterol 0.083% Inh Yaima 3 mL, See Instructions, 1 refills alendronate 70 mg Tab, See Instructions APAP/butalbital/caffeine 325 mg-50 mg-40 mg Tab, 1 tab(s), [...] Tobacco Use:. Never Smokeless Tobacco Use:. Cigarettes, Householdtobacco concerns: No. Yes, 07/13/2024 Family History Cardiac arrest: Mother. Primary malignant neoplasm of colon: Father. Immunizations Vaccine Date Status Comments influenza virus vaccine, inactivated 03/17/2024 Recorded SARS-CoV-2 mRNA (tozinameran 5y-11y) vac 03/16/2023 Recorded covid 19 vishal-sucrose influenza virus vaccine, inactivated 02/26/2023 Recorded SARS-CoV-2 (COVID-19) mRNAMUL.ORD![id number] 02/23/2022 Recorded influenza virus vaccine, inactivated 02/10/2022 Recorded SARSCoV2 mRNA(jydujnqoh-qxtf-rhkika) vac 11/12/2021 Recorded influenza virus vaccine, inactivated [...] virus vaccine, inactivated 02/24 (more content not included)...Normal Genesis HospitalComment on above:Result Comment: Electronically Signed By: Sabina Ruth\.br\Date and Time Signed: 07/13/24 09:24 EDTOrders Onlyon [id number] [id number] Nori Quezada 1940 F Date Provider Department Center 06/27/2024 Gabino-PRAVEEN PHILIPPE CARD [facility] Family History Problem Relation Age of Onset No Known Problems Mother No Known Problems Father Family Status - Relation Status Age at Mother FatherNormalUniSelect Medical Specialty Hospital [facility] SouthOffice Visiton [id number]- up [id number] Nori Quezada 1940 F Date Provider Department Center 05/11/2024 IAN [facility]LLY [facility] Family History Problem Relation Age of Onset No Known Problems Mother No Known Problems Father Family Status - Relation Status Age at Mother Father Level of Service:32646 [place] OFFICE/OUTPATIENT ESTABLISHED MOD MDM 30 [facility]onOffice Visiton 66-73-8400Quhjlm-up visit [id number] Nori Quezada 1940 F Date Provider Department Center 04/10/2024 271-IAN SIMS [facility] Family History Problem Relation Age of Onset No Known Problems Mother No Known Problems Father Family Status - Relation Status Age at Mother Father Level of Service:60699 [place] OFFICE/OUTPATIENT NEW MODERATE MDM 45 [facility]ad[facility] [id number] From: Sabina Ruth To: [facility] - Clinical; [...] 09:23:00 EST Subject: RE: Ambulatory Rem[facility]izes [facility] HospitalAmbulatory Visit Summaryon [id number] Visit SummaryAmbulatory Visit Summary NORI QUEZADA :1940 Visit Date:02/24/2024 Ambulatory Visit Instructions Your Diagnosis HTN (hypertension) Hypercholesteremia Cough Shortness of breath BMI 29.0-29.9,adult Your Care Team Attending Physician - Sabina Ruth Primary Care Physician - Sabina Ruth This Is Your Medications List APAP/butalbital/caffeine (APAP/butalbital/caffeine 325 mg-50 mg-40 mg Tab) Non-Formulary Medication [...] intraocular lens (04/30/2020), Colonoscopy (11/25/2016), Colonoscopy (10/11/2013), Colonoscopy(09/28/2012), Appendectomy, Arthroplasty of knee, Cervical polypectomy, Cholecystectomy, Cystoscopy, Urethral dilatation. Discharge Vitals Temperature (Tympanic) 36.5 ???C Heart Rate (Peripheral) 80 Respiratory Rate 18 Blood Pressure 148/80 Height 167.5 cm Height 66 in Weight 83.8 kg Weight 184.36 lb BMI 29.87 What to do next Scheduled Follow-Up Appointments 2024 11:00 AM EDT Where: [address] [address]- Medications What How Much When Why Instructions New azithromycin (azithromycin 250 mg Tab) 1 Packets By Mouth As Directed HTN (hypertension) Hypercholesteremia Duration: 5 Days as directed on package labeling Pickup at [facility]/pharmacy #[id number] New methylPREDNISolone (Medrol 4 mg Tab) 1 Packets By Mouth As Directed HTN (hypertension) Hypercholesteremia Duration: 6 Days as directed on package labeling Pickup at [facility]/pharmacy #[id number] Unchanged albuterol Nebulized inhalation (aerosol) [...] TABLET BY MOUTH EVERY DAY Pharmacy Information [facility]/pharmacy #[id number]: [address], [place] [phone] Allergies cefuroxime (Syncope and collapse, Itch) amitriptyline [...] you for choosing us for your care. [facility] HospitalCHEMISTRYOrdered By: SYSTEM SYSTEM on 30-16-2126Osakhalmszp [Mass/Vol]166 mg/tRVpeaqm253 - 200 mg/dLRemisol ChemCholesterol in HDL [Mass/Vol]55 mg/dLInvalid Interpretation CodeRemisol Chem Comment on above:Result Comment: '>= 60 LOW RISK' '<= 40 HIGH RISK'Cholesterol in LDL [Mass/Vol]92 mg/dLNormal<=129mg/dLRemisol ChemCholesterol in VLDL [Mass/Vol]20 mg/dLNormal7 - 40 mg/dLRemisol Chem Triglyceride [Mass/Vol]102 mg/dLNormal<=149mg/dLRemisol ChemTSH Qn1.56 m[IU]/L Normal0.34 - 5.60 mcIU/mLRemisol ChemFaemerson hospital Medicine Office/Clinic Noteon 79-99-9280Qxzcdz Medicine Office/Clinic NoteFaemerson hospital Medicine Office/Clinic Note Chief Complaint 6m follow [...] day(s), # 6 tab(s), Refills(s) 0, Pharmacy: [facility]/pharmacy #[id number], 167.5, cm, 02/24/24 10:05:00 EST, Height/Length Dosing, 83.8, kg, 02/24/24 10:05:00 EST, Weight Dosing losartan, 25 mg = 1 tab(s), Oral, BID, # 180 tab(s), Refills(s) 3, Pharmacy: [facility]/pharmacy #[id number], 166, cm, 03/16/23 9:10:00 EST, Height/Length Dosing, 85.6, kg, 03/16/23 9:10:00 EST, Weight Dosing losartan, 25 mg = 1 tab(s), Oral, BID, # 180 tab(s), Refills(s) 3, Pharmacy: [facility]/pharmacy #[id number], 167.5, cm, 02/15/24 11:55:00 EDT, Height/Length Dosing, 84.4, kg, 02/15/24 11:55:00 EDT, Weight Dosing methylPREDNISolone, = 1 packet(s), Oral, As Directed, as directed on package labeling, X 6 day(s), # 21 tab(s), Refills(s) 0, Pharmacy: [facility]/pharmacy #[id number], 167.5, cm, 02/24/24 10:05:00 EST, Height/Length Dosing, 83.8, kg, 02/24/24 10:05:00 EST, Weight Dosing Lipid Panel Thyroid Stimulating Hormone 2. Hypercholesteremia (E78.00: Pure hypercholesterolemia, unspecified) lipid panel in office today Ordered: azithromycin, = 1 packet(s), Oral, As Directed, as directed on package labeling, X 5 day(s), # 6 tab(s), Refills(s) 0, [id number] 167.5, cm, 02/24/24 10:05:00 EST, Height/Length Dosing, 83.8, kg, 02/24/24 10:05:00 EST, Weight Dosing methylPREDNISolone, = 1 packet(s), Oral, As Directed, as directed on package labeling, X 6 day(s), # 21 tab(s), Refills(s) 0, [id number], 167.5, cm, 02/24/24 10:05:00 EST, Height/Length [...] AFTER, # 6 caplet(s), Refills(s) 1, [id number], 166, cm, 08/24/23 8:56:00 EDT, Height/Length [...] intraocular lens (04/30/2020), Colonoscopy (11/25/2016), Colonoscopy (10/11/2013), Colonoscopy(09/28/2012), Appendectomy, Arthroplasty of knee, Cervical polypectomy, Cholecystectomy, Cystoscopy, Urethral dilatation. Medications albuterol, NEB, q4hr, PRN alendronate 70 mg Tab, See Instructions APAP/butalbital/caffeine 325 mg-50 mg-40 mg Tab, 1 tab(s), [...] tab(s), Oral, BID (more content not included)... NormalGenesis HospitalComment on above:Result Comment: Electronically Signed By: Sabina Ruth\.br\Date and Time Signed: 02/24/24 10:38 ESTLipid Panelon 64-41-7017Oajquwzyykk [Mass/Vol]166 mg/tZQiofwa726-607VwcafyGenesis HospitalComment on above:Performed By: #### [id number] #### [facility] [address], [place] [address]Zhrctdbzekr in HDL [Mass/Vol]55 mg/dLInvalid Interpretation CodeGenesis HospitalComment on above:Result Comment: '>= 60 LOW RISK' '<= 40 HIGH RISK'Performed By: #### [id number] #### [facility] [address] [place], [place] [address]Uoxtmwfmyoq in LDL [Mass/Vol]92 mg/dLNormal<=129Genesis HospitalComment on above:Performed By: #### [id number] #### [facility] [address], [place] [address]Lgmkzwgetbi in VLDL [Mass/Vol]20 mg/dLNormal7-40Genesis HospitalComment on above:Performed By: #### [id number] #### [facility] [address], [place] [address]Ygwzgnmefvwe [Mass/Vol]102 mg/dLNormal<=149Genesis HospitalComment on above:Performed By: #### [id number] #### [facility] [address], [place] [address]OGXqa 50-77-4185QUF Qn1.56 m[IU]/LNormal0.34-5.60Genesis HospitalComment on above:Performed By: #### [id number] #### [facility] [address], [place] [address]Sbvwlv Medicine Office/Clinic Noteon 46-43-7145Xujdes Medicine Office/Clinic NoteFaemerson hospital Medicine Office/Clinic Note HPI Staff Nori is [...] an acute visit for evaluation of cough andcongestion x two days. She reports fatigue, cough, nasal congestion with white mucus, some sneezingand itchy watery eyes. She reports her was [...] with a non-smoker Ordered: Rapid COVID POC 93059 3. BMI 30.0-30.9,adult (Z68.30: Body mass index [BMI] 30.0-30.9, adult) The standard range for ages 18 and older is >=18.5 and < 25 kg/m2. Your BMI today was above this range, this falls in the overweight to obese category and there are medical benefits to weight loss. We can offer counselling, referral, and/or medical support in addressing this problem. Your BMIand weight management will be followed at subsequent visits. Ordered: Rapid COVID POC 32519 4. Exogenous obesity (E66.09: Other obesity due to excess calories) The standard range for ages 18 and older is >=18.5 and < 25 kg/m2. Your BMI today was above this range, this falls in the overweight to obese category and there are medical benefits to weight loss. We can offer counselling, referral, and/or medical support in addressing this problem. Your BMIand weight management will be followed at subsequent visits. Ordered: Rapid COVID POC 90810 Follow-up No qualifying data available Patient Education Allergic Rhinitis, Adult, Jumf-ie-Qhbf Problem List/Past Medical History Ongoing Allergic rhinitis, [...] intraocular lens (04/30/2020), Colonoscopy (11/25/2016), Colonoscopy (10/11/2013), Colonoscopy(09/28/2012), Appendectomy, Arthroplasty of knee, Cervical polypectomy, Cholecystectomy, Cystoscopy, Urethral dilatation. Medications albuterol, NEB, q4hr, PRN alendronate 70 mg Tab, See Instructions amoxicillin 500 mg Cap, See Instructions, 1 refills APAP/butalbital/caffeine 325 mg-50 mg-40 mg Tab, 1 tab(s), Oral, q4hr, PRN calcium (as carbonate) 600 mg oral tablet, 600 mg= 1 tab(s), Oral, Daily Celebrate Multivitamin oral capsule, 1 cap(s), Oral, Daily colestipol 1 g Tab, See Instructions hydrochlorothiazide 12.5 mg Cap, See Instructions Alisha (more content not included)...[facility] HospitalComment on above:Result Comment: Electronically Signed By: MONICA RODRÍGUEZ CNP\.tato\Date and Time Signed: 02/15/24 13:18 EDTAmbulatory Visit Summaryon 12-24-2023 Ambulatory Visit SummaryAmbulatory Visit Summary NORI QUEZADA :1940 Visit Date:12/24/2023 Ambulatory Visit Instructions Your Diagnosis Non-smoker BMI 29.0-29.9,adult Excess weight Your Care Team Attending Physician - Sabina Ruth Primary Care Physician - Sabina Ruth This Is Your Medications List APAP/butalbital/caffeine (APAP/butalbital/caffeine 325 mg-50 mg-40 mg Tab) Non-Formulary Medication [...] intraocular lens (04/30/2020), Colonoscopy (11/25/2016), Colonoscopy (10/11/2013), Colonoscopy(09/28/2012), Appendectomy, Arthroplasty of knee, Cervical polypectomy, Cholecystectomy, Cystoscopy, Urethral dilatation. Discharge Vitals Temperature (Temporal Artery) 36.5 ?C Heart Rate (Peripheral) 68 Respiratory Rate 18 Blood Pressure 128/84 Height 167.5 cm Height 66 in Weight 83.2 kg Weight 183.04 lb BMI 29.65 What to do next Scheduled Follow-Up Appointments 2023 10:00 AM EST With: Sabina Ruth Where: [address] [address] 2024 11:00 AM EDT With: Where: [address] [address]- Medications What How Much When Why Instructions [...] you for choosing us for your care. [facility] HospitalFaemerson hospital Medicine Office/Clinic Noteon 85-27-2149Opexsg Medicine Office/Clinic NoteFaemerson hospital Medicine Office/Clinic Note HPI Staff Nori is [...] intraocular lens (04/30/2020), Colonoscopy (11/25/2016), Colonoscopy (10/11/2013), Colonoscopy(09/28/2012), Appendectomy, Arthroplasty of knee, Cervical polypectomy, Cholecystectomy, Cystoscopy, Urethral dilatation. Medications albuterol, NEB, q4hr, PRN alendronate 70 mg Tab, See Instructions amoxicillin 500 mg Cap, See Instructions, 1 refills APAP/butalbital/caffeine 325 mg-50 mg-40 mg Tab, 1 tab(s), [...] Tobacco Use:. Never Smokeless Tobacco Use:. Cigarettes, Householdtobacco concerns: No. Yes, 12/24/2023 Family History Cardiac arrest: Mother. Primary malignant neoplasm of colon: Father. Immunizations Vaccine Date Status Comments SARS-CoV-2 mRNA (toz (more content not included)...[facility] HospitalComment on above:Result Comment: Electronically Signed By: Sabina Ruth\.br\Date and Time Signed: 12/24/23 10:45 EDTCHEMISTRYOrdered By: SYSTEM SYSTEM on [id number]-wosxphaneitdvv D3 [Mass/Vol]53.7 ng/pJQvdmvi88.0 - 100.0 ng/mLRemisol ChemAnion gap [Moles/Vol]10 mmol/LNormal6 - 16 mEq/LRemisol Chem Calcium [Mass/Vol]9.4 mg/dLNormal8.9 - 11.1 mg/dLRemisol ChemChloride [Moles/Vol]104 mmol/ZZwnelh554 - 111 mmol/LRemisol ChemCO2 [Moles/Vol]30 mmol/L Zwzxlc79 - 31 mmol/LRemisol ChemCreatinine [Mass/Vol]0.7 mg/dLNormal0.5 - 1.3 mg/dLRemisol CodiuUCL21 mL/min/1.73 m6Mbdqnn>=59mL/min/1.73 q5Vnqwvkc Chem Glucose [Mass/Vol]79 mg/fMLjkozg34 - 199 mg/dLRemisol ChemIron [Mass/Vol]63 ug/fHDtkeoq53 - 153 mcg/dLRemisol ChemPotassium [Moles/Vol]4.3 mmol/LNormal3.5 - 5.3 mmol/LRemisol ChemSodium [Moles/Vol]140 mmol/IJohxei847 - 145 mmol/LRemisol ChemUrea nitrogen [Mass/Vol]19 mg/dLNormal5 - 21 mg/dLRemisol ChemUrea nitrogen/Creatinine [Mass ratio]27 mg/fsZwaf22 - 20Remisol ChemCHEMISTRYOrdered By: SYSTEM SYSTEM on 19-02-3732Zlkyapk [Mass/Vol]4.1 g/dLNormal3.3 - 5.0 gm/dL [facility] RemisolAlbumin/Globulin [Mass ratio]1.2 {ratio}Normal1.1 - 2.2[facility] Remisol ALP [Catalytic activity/Vol]46 [iU]/wLrbbng02 - 98 Int._Unit/LFTMC RemisolALT No additional P-5'-P [Catalytic activity/Vol]18 [iU]/dNormal6 - 46 Int._Unit/LFTMC RemisolAnion gap [Moles/Vol]11 mmol/LNormal6 - 16 mEq/LFT[facility] RemisolAST [Catalytic activity/Vol]23 [iU]/dNormal5 - 43 Int._Unit/LFT[facility] RemisolBilirubin [Mass/Vol]0.4 mg/dLNormal0.0 - 1.1 mg/dLFT RemisolCalcium [Mass/Vol]9.9 mg/dL Normal8.9 - 11.1 mg/dLFT RemisolChloride [Moles/Vol]106 mmol/EOiwxde070 - 111 mmol/LFTMC RemisolCholesterol [Mass/Vol]178 mg/nCGxyxvv995 - 200 mg/dLFT RemisolCholesterol in HDL [Mass/Vol]59 mg/dLInvalid Interpretation CodeFT RemisolComment on above:Interpretive Data: HDL > or equal to 60 mg/dL: Low cardiovascular risk HDL < 40 mg/dL : High cardiovascular riskCholesterol in LDL [Mass/Vol]107 mg/dL Normal<=129mg/dLFT RemisolCholesterol in VLDL [Mass/Vol]9 mg/dLNormal7 - 40 mg/dLFT RemisolCO2 [Moles/Vol]29 mmol/HWlrvgu28 - 31 mmol/LFTMC Remisol Creatinine [Mass/Vol]0.8 mg/dLNormal0.5 - 1.3 mg/dLFTMC RemisolGFR/1.73 sq M.predicted among non-blacks MDRD (S/P/Bld) [Vol rate/Area]74 mL/min/1.73 m2 Normal>=59mL/min/1.73 m2FT Chem SComment on above:Interpretive Data: Chronic kidney disease could be indicated at eGFR's of less than 60 mL/min/1.73m2. Kidney failure is indicated at less than 15 mL/min/1.73m2.Globulin (S) [Mass/Vol]3.3 g/dLNormal1.4 - 4.0 gm/dLFTMC RemisolGlucose [Mass/Vol]90 mg/dL Jkbusi53 - 199 mg/dLFTMC RemisolComment on above:Interpretive Data: If this glucose result represents a fasting glucose, interpretation should referto the following reference range: 55-99 mg/dLPotassium [Moles/Vol]4.2 mmol/LNormal3.5 - 5.3 mmol/LFTMC RemisolProtein [Mass/Vol]7.4 g/dLNormal6.0 - 7.8 gm/dLFTMC RemisolSodium [Moles/Vol]142 mmol/HNmugqy985 - 145 mmol/LFTMC Remisol Triglyceride [Mass/Vol]47 mg/dLNormal<=149mg/dLFTMC RemisolTSH Qn2.12 m[IU]/L Normal0.34 - 5.60 mcIU/mLFTMC RemisolUrea nitrogen [Mass/Vol]17 mg/dLNormal5 - 21 mg/dLFTMC RemisolUrea nitrogen/Creatinine [Mass ratio]21 mg/qiWctb91 - 20[facility] RemisolHEMATOLOGYOrdered By: SYSTEM SYSTEM on 50-92-2688Qnihdethx/100 WBC (Bld) 0.5 %Normal0.0 - 2.0 %[facility] HemeAutoSSBasophils/Leukocytes Auto (Bld) [Pure # fraction]0.0 E9/LNormal0.0 - 0.2 E9/LFTMC HemeAutoSSEosinophils/100 WBC (Bld)1.4 %Normal0.0 - 8.0 %[facility] HemeAutoSSEosinophils/Leukocytes Auto (Bld) [Pure # fraction]0.1 E9/LNormal0.0 - 0.5 E9/LFTMC HemeAutoSSLymphocytes/100 WBC (Bld) 33.1 %Ilqiut15.0 - 50.0 %[facility] HemeAutoSSLymphocytes/Leukocytes Auto (Bld) [Pure # fraction]2.0 E9/LNormal1.0 - 4.0 E9/LFTMC HemeAutoSSMonocytes/100 WBC (Bld)8.3 %Normal4.0 - 14.0 %[facility] HemeAutoSSMonocytes/Leukocytes Auto (Bld) [Pure # fraction]0.5 E9/LNormal0.2 - 1.0 E9/LFTMC HemeAutoSSNeutrophils/100 WBC (Bld) 56.7 %Vocqrr39.0 - 75.0 %[facility] HemeAutoSSNeutrophils/Leukocytes Auto (Bld) [Pure # fraction]3.5 E9/LNormal2.0 - 7.5 E9/LFTMC HemeAutoSSHEMATOLOGYOrdered By: Carmen Estevez on 74-99-4813Fyiyhnedgaj distribution width (RBC) [Ratio]14.5 % High10.9 - 14.2 %[facility] HemeAutoSSHematocrit (Bld) [Volume fraction]38.8 %Normal 34.0 - 46.0 %[facility] HemeAutoSSHemoglobin (Bld) [Mass/Vol]13.1 g/qXCoalpn96.0 - 16.0 gm/dLFTMC HemeAutoSSMCH (RBC) [Entitic mass]29.8 xrMwxvcr99.0 - 34.0 pgFTMC HemeAutoSSMCHC (RBC) [Mass/Vol]33.8 g/xRNopqod49.4 - 36.0 gm/dLFTMC HemeAutoSS MCV (RBC) [Entitic vol]88.3 iEOmqthw44.0 - 100.0 fLFTMC HemeAutoSSPlatelet mean volume (Bld) [Entitic vol]9.0 fLNormal6.4 - 10.8 fLFTMC HemeAutoSSPlatelets (Bld) [#/Vol]232.0 E9/XNlreze890.0 - 500.0 E9/LFTMC HemeAutoSSRBC (Bld) [#/Vol] 4.4 E12/LNormal4.3 - 5.9 E12/LFTMC HemeAutoSSWBC corrected for nucl RBC Auto (Bld) [#/Vol]6.2 E9/LNormal4.0 - 11.0 E9/LFC HemeAutoSSMG MAMM SCREEN 3D TOMMY CADon 80-91-3491EH MAMM SCREEN 3D TOMMY CADPatient: NORI QUEZADA Exam Date: 12/19/2021 : 1940 Gender:F Ordering : DR BRITTANY FREEDMAN . Admission #: [id number] Family : Order #: [id number] CLICK HERE TO VIEW EXAM RADIOLOGY REPORT [...] colon cancer at age 69. LOCATION: [facility] BREAST COMPOSITION: Extremely dense, which lowers [...] by: Bernard Reza MD on 12/19/2021 at 13:46[facility] CenterCBC AUTO DIFFon 61-50-2296EOQN #0.0 103/ulNormal0.0-0.1The [facility] HospitalComment on above:Performed By: #### CBC #### [facility] [address] [place] [address] [address] Kaiser Thomassophils/100 WBC (Bld)0.3 %Normal0.2-2.0The [facility] Comment on above:Performed By: #### CBC #### [facility] [address] [place] [address] [address] Kaiser Gardner #0.1 103/ulNormal0.0-0.7The [facility] Hospitalment on above: Performed By: #### CBC #### [facility] [address] [place] [address] Dr. Kaiser Mooneyosinophils/100 WBC (Bld)1.9 %Normal0.9-7.0The [facility] Comment on above:Performed By: #### CBC #### [facility] [address] [place] [address] Dr. Kaiser Mooneyrythrocyte distribution width (RBC) [Ratio]13.9 %Dyqdln23.0-15.0 The [facility] HospitalComment on above:Performed By: #### CBC #### [facility] [address] [place] [address] Dr. Kaiser GarcíaHematocrit (Bld) [Volume fraction]38.5 %Vbesgu91.0-48.0The [facility] HospitalComment on above:Performed By: #### CBC #### [facility] [address] [place] [address] Dr. Kaiser GarcíaHemoglobin (Bld) [Mass/Vol]12.0 g/oHPmckue64.0-16.0The [facility] Hospitalment on above:Performed By: #### CBC #### [facility] [address] [place] [address] Dr. Kaiser Muller #0.03 10e3/ulNormal0.00-0.03The [facility] Hospitalment on above:Performed By: #### CBC #### [facility] [address] [place] [address] Dr. Kaiser Muller %0.4 %Normal0.0-0.5The [facility] HospitalComment on above: Performed By: #### CBC #### [facility] [address] [place] [address] Dr. Kaiser Mayen #2.5 103/ulNormal1.2-3.8The [facility] HospitalComment on above:Performed By: #### CBC #### [facility] [address] [address] [address] Kaiser Madridmphocytes/100 WBC (Bld)35.7 %Leufph00.5-60.0The [facility] Hospitalment on above:Performed By: #### CBC #### [facility] [address] [place] [address] Dr. Kaiser Ivey DIFF REQNONormalThe [facility] HospitalComment on above: Performed By: #### CBC #### [facility] [address] [place] [address] Dr. Kaiser Kerr (RBC) [Entitic mass]28.5 sdVhsrhr22.7-34.0The [facility] HospitalComment on above:Performed By: #### CBC #### [facility] [address] [place] [address] Dr. Kaiser Kerr (RBC) [Mass/Vol]31.2 g/wKWrxddf55.9-35.2The [facility] Hospitalment on above:Performed By: #### CBC #### [facility] [address] [place] [address] Dr. Kaiser Kerr (RBC) [Entitic vol]91.4 jUNknpgq50.0-99.0The [facility] Hospitalment on above:Performed By: #### CBC #### [facility] [address] [place] [address] Dr. Kaiser Gonsalves #0.6 103/ulNormal0.3-0.8The [facility] Hospitalment on above:Performed By: #### CBC #### [facility] [address] [place] [address] Dr. Kaiser Stewartocytes/100 WBC (Bld)8.7 %Normal1.7-12.0The [facility] Hospital on above:Performed By: #### CBC #### [facility] [address] [place] [address] Dr. Kaiser Sorenson #3.7 103/ulNormal1.4-6.5The [facility] HospitalComment on above:Performed By: #### CBC #### [facility] [address] [address] [address] Kaiser Kirbyutrophils/100 WBC (Bld)53.0 %Ndhqvg53.0-75.0The [facility] HospitalComment on above:Performed By: #### CBC #### [facility] [address] [address] [address] Kaiser GarcíaPlatelet mean volume (Bld) [Entitic vol]9.4 fLCritically low 9.5-13.5The [facility] HospitalComment on above:Performed By: #### CBC #### [facility] [address] [address] [address] Kaiser GarcíaPLT244 103/lbFqhstt168-549Koh [facility] HospitalComment on above: Performed By: #### CBC #### [facility] [address] [address] [address] Kaiser GarcíaRBC4.21 106/ulNormal4.20-5.40The [facility] HospitalComment on above:Performed By: #### CBC #### [facility] [address] [address] [address] Kaiser GarcíaWBC6.9 103/ulNormal4.0-11.0The [facility] HospitalComment on above: Performed By: #### CBC #### [facility] [address] [address] [address] Kaiser GarcíaPROF 14(COMP METB)on 46-65-2359Bdedvcg [Mass/Vol]3.6 g/dLNormal 3.4-5.0The [facility] HospitalComment on above:Performed By: #### CMP, TSH ####[facility] [address] [place], [place] [address]Dr. Kaiser GarcíaAlbumin/Globulin [Mass ratio]1.1 {ratio}NormalThe [facility] Comment on above:Performed By: #### CMP, TSH ####[facility] [address] [address]Dr. Yilan ChangALP [Catalytic activity/Vol]51 U/AGcgsse52-268Gae [facility] HospitalComment on above:Performed By: #### CMP, TSH ####[facility] [address] [place], [place] [address]Dr. Yilan ChangALT [Catalytic activity/Vol]19 U/VSwtqll85-21Cbj [facility] HospitalComment on above:Performed By: #### CMP, TSH ####[facility] V[address] [place], [place] [address]Dr. Yilan ChangAnion gap [Moles/Vol]11.6 mmol/LNormalThe [facility] HospitalComment on above:Performed By: #### CMP, TSH ####[facility] [address] [place], [place] [address]Dr. Yilan ChangAST [Catalytic activity/Vol]14 U/LCritically cgz74-74 The [facility] HospitalComment on above:Performed By: #### CMP, TSH ####[facility] [address] [place], [place] [address]Dr. Yilan García Bilirubin [Mass/Vol]0.3 mg/dLNormal0.2-1.0The [facility] HospitalComment on above: Performed By: #### CMP, TSH ####[facility] [address] [place], [place] [address]Dr. Yilan ChangCalcium [Mass/Vol]9.0 mg/dLNormal 8.5-10.1The [facility] HospitalComment on above:Performed By: #### CMP, TSH ####[facility] [address] [place], [place] [address]Dr. Yilan ChangChloride [Moles/Vol]104 mmol/YXcqmdi37-526Xtd [facility] Comment on above:Performed By: #### CMP, TSH ####[facility] [address] [place], [place] [address]Dr. Yilan ChangCO2 [Moles/Vol]28.4 mmol/FIeztsy29.0-32.0The [facility] HospitalComment on above: Performed By: #### CMP, TSH ####[facility] [address] [address]Dr. Yilan ChangCreatinine [Mass/Vol]0.73 mg/dLNormal 0.55-1.02The [facility] HospitalComment on above:Performed By: #### CMP, TSH ####[facility] [address] [place], [place] [address]Dr. Yilan ChangEGFR-AF BURUNDIAN>60Normal>=60The [facility] HospitalComment on above: Performed By: #### CMP, TSH ####[facility] [address] [place], [place] [address]Dr. Yilan ChangEGFR-NON AF BURUNDIAN>60Normal>=60The [facility] HospitalComment on above:Performed By: #### CMP, TSH ####[facility] P[address] [place], [place] [address]Dr. Yilan García Globulin (S) [Mass/Vol]3.4 g/dLNormalThe [facility] HospitalComment on above: Performed By: #### CMP, TSH ####[facility] [address] [place], [place] [address]Dr. Yilan ChangGlucose [Mass/Vol]73 mg/dLCritically zkx55-464Xac [facility] HospitalComment on above:Performed By: #### CMP, TSH ####[facility] [address] [place], [place] [address]Dr. Yilan ChangPotassium [Moles/Vol]4.0 mmol/LNormal3.5-5.1The [facility] Comment on above:Performed By: #### CMP, TSH ####[facility] [address] [place], [place] [address]Dr. Yilan ChangProtein [Mass/Vol]7.0 g/dLNormal6.4-8.2The [facility] HospitalComment on above:Performed By: #### CMP, TSH ####[facility] [address] [place], [place] [address]Dr. Yilan ChangSodium [Moles/Vol]140 mmol/GLpvpoi274-452Nmb [facility] HospitalComment on above:Performed By: #### CMP, TSH ####[facility] [address] [address]Dr. Kaiser ChangUrea nitrogen [Mass/Vol]23.0 mg/dLCritically high7.0-18.0The [facility] HospitalComment on above:Performed By: #### CMP, TSH ####[facility] [address] [address]Dr. Kaiser ChangUrea nitrogen/Creatinine [Mass ratio] 31.5 mg/mgNoOhioHealth Mansfield HospitalComment on above:Performed By: #### CMP, TSH ####[facility] [address] [place], [place] [address]Tr. Kaiser GarcíaTSHon 76-74-3246NFR5.112 uIU/mLNormal0.358-3.740[facility] Comment on above:Performed By: #### CMP, TSH ####[facility] [address] [address]Dr. Kaiser RickyXR CHEST 1 Von 28-07-2760WV CHEST 1 VEXAM: XR CHEST 1 V HISTORY: SHORTNESS OF [...] Electronically authenticated by: Mesfin LIZ Date: 2021-12-03 23:19[facility] AUTO DIFFon 31-72-0398LHRB #0.0 103/ulNormal0.0-0.1[facility] HospitalComment on above:Performed By: #### CBC #### [facility] [address] [address] [address] Kaiser GarcíaBasophils/100 WBC (Bld)0.3 %Normal0.2-2.0[facility] Comment on above:Performed By: #### CBC #### [facility] [address] [address] [address] Kaiser Gardner #0.1 103/ulNormal0.0-0.7The [facility] HospitalComment on above: Performed By: #### CBC #### [facility] [address] [address] [address] Kaiser Mooneyosinophils/100 WBC (Bld)1.0 %Normal0.9-7.0The [facility] Comment on above:Performed By: #### CBC #### [facility] [address] [place] [address] Dr. Kaiser Mooneyrythrocyte distribution width (RBC) [Ratio]13.8 %Yoakad92.0-15.0 The [facility] HospitalComment on above:Performed By: #### CBC #### [facility] [address] [place] [address] Dr. Kaiser GarcíaHematocrit (Bld) [Volume fraction]38.5 %Krvhya52.0-48.0The [facility] HospitalComment on above:Performed By: #### CBC #### [facility] [address] [place] [address] Dr. Kaiser GarcíaHemoglobin (Bld) [Mass/Vol]12.4 g/oJSlojsi17.0-16.0The [facility] Hospitalment on above:Performed By: #### CBC #### [facility] [address] [place] [address] Dr. Kaiser Muller #0.01 10e3/ulNormal0.00-0.03The [facility] HospitalComment on above:Performed By: #### CBC #### [facility] [address] [place] [address] Dr. Kaiser Muller %0.2 %Normal0.0-0.5The [facility] HospitalComment on above: Performed By: #### CBC #### [facility] [address] [place] [address] Dr. Kaiser MadridMPH #2.0 103/ulNormal1.2-3.8The [facility] HospitalComment on above:Performed By: #### CBC #### [facility] [address] [place] [address] Dr. Kaiser Madridmphocytes/100 WBC (Bld)32.4 %Phyzlk16.5-60.0The [facility] HospitalComment on above:Performed By: #### CBC #### [facility] [address] [place] [address] Dr. Kaiser GarciaUAL DIFF REQNONormalThe [facility] HospitalComment on above: Performed By: #### CBC #### [facility] [address] [place] [address] Dr. Kaiser Kerr (RBC) [Entitic mass]28.8 jyQuquca06.7-34.0The [facility] HospitalComment on above:Performed By: #### CBC #### [facility] [address] [place] [address] Dr. Kaiser Kerr (RBC) [Mass/Vol]32.2 g/aZJdwaza77.9-35.2The [facility] HospitalComment on above:Performed By: #### CBC #### [facility] [address] [place] [address] Dr. Kaiser Kerr (RBC) [Entitic vol]89.3 fRYnomut03.0-99.0The [facility] HospitalComment on above:Performed By: #### CBC #### [facility] [address] [place] [address] Dr. Kaiser Gonsalves #0.3 103/ulNormal0.3-0.8The [facility] HospitalComment on above:Performed By: #### CBC #### [facility] [address] [place] [address] Dr. Kaiser Stewartocytes/100 WBC (Bld)4.2 %Normal1.7-12.0The [facility] Comment on above:Performed By: #### CBC #### [facility] [address] [place] [address] Dr. Kaiser Sorenson #3.9 103/ulNormal1.4-6.5The [facility] HospitalComment on above:Performed By: #### CBC #### [facility] [address] [address] [address] Kaiser GarcíaNeutrophils/100 WBC (Bld)61.9 %Mbzajj79.0-75.0The [facility] on above:Performed By: #### CBC #### [facility] [address] [address] [address] Kaiser GarcíaPlatelet mean volume (Bld) [Entitic vol]10.1 fLNormal9.5-13.5The [facility] HospitalComment on above:Performed By: #### CBC #### [facility] [address] [place] [address] Dr. Kaiser GarcíaPLT175 103/cyJksqsa678-333Mlb [facility] on above: Performed By: #### CBC #### [facility] [address] [place] [address] Dr. Kaiser GarcíaRBC4.31 106/ulNormal4.20-5.40The [facility] on above:Performed By: #### CBC #### [facility] [address] [place] [address] Dr. Kaiser GarcíaWBC6.2 103/ulNormal4.0-11.0The [facility] on above: Performed By: #### CBC #### [facility] [address] [place] [address] Dr. Kaiser GarcíaPROF 14(COMP METB)on 90-94-1046Zbpqejr [Mass/Vol]3.6 g/dLNormal 3.4-5.0The [facility] on above:Performed By: #### HSTROPN, CMP #### [facility] [address] [place] [address] Dr. Kaiser GarcíaAlbumin/Globulin [Mass ratio]1.0 {ratio}NormalThe [facility] on above:Performed By: #### HSTROPN, CMP #### [facility] [address] [place] [address] Dr. Kaiser ColungaP [Catalytic activity/Vol]54 U/KPknslp98-673Rbr [facility] HospitalComment on above:Performed By: #### HSTROPN, CMP #### [facility] [address] [address] [address] Kaiser Caceres [Catalytic activity/Vol]17 U/LUlvann77-09Mmy [facility] HospitalComment on above:Performed By: #### HSTROPN, CMP #### [facility] [address] [address] [address] Kaiser Morrison gap [Moles/Vol]15.4 mmol/LNormalMer[facility] Comment on above:Performed By: #### HSTROPN, CMP #### [facility] [address] [place] [address] Dr. Kaiser Romeo [Catalytic activity/Vol]21 U/YGvuvoe18-44VngMercy Health Clermont HospitalComment on above:Performed By: #### HSTROPN, CMP #### [facility] [address] [place] [address] Dr. Kaiser GarcíaBilirubin [Mass/Vol]0.4 mg/dLNormal0.2-1.0[facility] Comment on above:Performed By: #### HSTROPN, CMP #### [facility] [address] [place] [address] Dr. Kaiser GarcíaCalcium [Mass/Vol]9.1 mg/dLNormal8.5-10.1[facility] Comment on above:Performed By: #### HSTROPN, CMP #### [facility] [address] [place] [address] Dr. Kaiser GarcíaChloride [Moles/Vol]101 mmol/EWmsquf83-792MzvMercy Health Cl[facility] Hospital Comment on above:Performed By: #### HSTROPN, CMP #### [facility] [address] [place] [address] Dr. Kaiser GarcíaCO2 [Moles/Vol]22.4 mmol/ELxkash24.0-32.0[facility] Comment on above:Performed By: #### HSTROPN, CMP #### [facility] [address] [place] [address] Dr. Kaiser GarcíaCreatinine [Mass/Vol]1.19 mg/dLCritically high0.55-1.02The [facility] HospitalComment on above:Performed By: #### HSTROPN, CMP #### [facility] [address] [address] [address] Kaiser MooneyGFR-AF PZNVYWCM25 mL/min/1.27y9Jthdbrdlhd low>=60The [facility] HospitalComment on above:Performed By: #### HSTROPN, CMP #### [facility] [address] [address] [address] Kaiser MooneyGFR-NON AF KELRLKKM34 mL/min/1.30r3Pueqzvjape low>=60The [facility] HospitalComment on above:Performed By: #### HSTROPN, CMP #### [facility] [address] [address] [address] Kaiser GarcíaGlobulin (S) [Mass/Vol]3.5 g/dLNormalThe [facility] HospitalComment on above:Performed By: #### HSTROPN, CMP #### [facility] [address] [address] [address] Kaiser GarcaíGlucose [Mass/Vol]220 mg/dLCritically hmlc16-676Fyn [facility] Hospitalment on above:Performed By: #### HSTROPN, CMP #### [facility] [address] [address] [address] Kaiser GarcíaPotassium [Moles/Vol]3.8 mmol/LNormal3.5-5.1The [facility] Comment on above:Performed By: #### HSTROPN, CMP #### [facility] [address] [address] [address] Kaiser GarcíaProtein [Mass/Vol]7.1 g/dLNormal6.4-8.2The [facility] Comment on above:Performed By: #### HSTROPN, CMP #### [facility] [address] [address] [address] Kaiser GarcíaSodium [Moles/Vol]135 mmol/LCritically tvp981-518Dmx [facility] HospitalComment on above:Performed By: #### TREVORTROPN, CMP #### [facility] [address] [place] [address] Dr. Kaiser Diehl nitrogen [Mass/Vol]22.0 mg/dLCritically high7.0-18.0The [facility] HospitalComment on above:Performed By: #### SAMANTHAN, CMP #### [facility] [address] [place] [address] Dr. Kaiser Diehl nitrogen/Creatinine [Mass ratio]18.5 mg/mgNormalThe [facility] HospitalComment on above:Performed By: #### HANNY, CMP #### [facility] [address] [place] [address] Dr. Kaiser Barnett, HIGH SENSITIVITYon 78-41-8833HLASJC7.4 pg/mLNormal 4.0-51.3The [facility] HospitalComment on above:Result Comment: CUT-OFF POINTS HAVE BEEN ESTABLISHED BASED ON THE FOURTH UNIVERSAL DEFINITIONS OF MYOCARDIAL INFARCTION. THE UPPER REFERENCE LIMIT (URL) OF TROPONIN, DEFINED THE 99TH PERCENTILE OF cTnI DISTRIBUTION IN A REFERENCE POPULATION, HAS BEEN CONFIRMED THE DECISION THRESHOLD FOR MT DIAGNOSIS.Performed By: #### HANNY, CMP #### [facility] [address] [place] [address] Dr. Kaiser GarcíaCovid-19 PCR ([facility])on 06-17-6113OUHJ-CoV-2 (COVID-19) RNA DANIEL+probe Ql (Unsp spec)Not detectedNormalNOT DETECTEDThe [facility] Comment on above:Result Comment: This test is not yet approved or cleared by the [place] FDA. When there are no FDA-approved or cleared tests available, and other criteria are met, FDA can make tests available under an emergency access mechanism called an Emergency Use Authorization (EUA). The EUA for this test is supported by the [place] of Health and Human Service's (HHS's) declaration that circumstances exist to justify the emergency use of in vitro diagnostics for the detection and/or diagnosis of the virus that causes COVID- 19. This EUA will remain in effect (meaning [...] of clinical signs and symptoms consistent with SARS-CoV-2.Performed By: #### CVDTBH #### [facility] [address] [place] [address] Dr. Kaiser Guaman ISABELLA DOP LEG LTon 37-33-1036QG ISABELLA DOP LEG LTEXAMINATION: US ISABELLA DOP LEG LT HISTORY: Localized [...] Electronically authenticated by: BERNARD REZA Date: 2021-10-17 16:45[facility] Encounters Encounter DateEncounter TypeCare ProviderFacilityStart: 26-53-2395aztmvqjfqtUmiz L SchwabFacility:[facility] Hospitaltart: 39-90-5837rzbofllxnqEwkf L Linda Facility:[facility] Hospitaltart: 02-05-2025 End: 77-61-9321xisykiulklZJXR [facility]: 12-07-2024 End: 80-97-4879pcyfyjcpynBhor L SchwabFacility:[facility] Hospitaltart: 11-27-2024 End: 75-17-8970Xlgwmclory Acuña DPM Work Phone: [facility] [place] PodiatryStart: 11-27-2024 End: 13-68-2130Zaazea togus va medical centerHector HOLLEYM Work Phone: noms [place] PodiatryStart: 11-27-2024 End: 51-38-2108Cgbjgly encounter procedureCapo Acuña DPM Work Phone: noms [place] PodiatryComment on above:Onychomycosis (Primary Dx); Corns and callosities; Other specified peripheral vascular diseases; Pain in both feetStart: 11-27-2024 End: 85-67-8381swxcoqpssrSNRZJIERJ H SMITHNot AvailableStart: 11-14-2024 End: 62-44-3884nrwvymuvaiBGLNAdena Health Systemtart: 09-21-2024 End: 95-13-9236Outwig Severo Acuña DPM Work Phone: noms [facility] PODIATRYStart: 09-21-2024 End: 25-64-2940Rmwhxj flowsHector Acuña DPM Work Phone: noms [facility]WS PODIATRYStart: 09-21-2024 End: 02-60-4485Fosrtod encounter procedureCapo HOLLEYM Work Phone: noms SWS PODIATRYComment on above:Onychomycosis (Primary Dx); Corns and callosities; Other specified peripheral vascular diseases; Pain in both feetStart: 09-21-2024 End: 40-56-8503mqomolxlwmOTFPKKUVE H SMITHNot AvailableStart: 07-17-2024 End: 35-28-1625hvwnagzqokEqim Lynn Schwab APRN-CNPFacility:Ortho/Sport MedStart: 07-13-2024 End: 39-52-3978onjjpqtnupWsgm L SchwabFacility:[facility] BellevueStart: 07-06-2024 End: 30-55-4842Ejkaig outpatient visit 15 minutesCaethan HOLLEYM Work Phone: noms SWS PODIATRYComment on above:Onychomycosis (Primary Dx); Corns and callosities; Other specified peripheral vascular diseases (CMS/HCC); Pain in both feet; Peripheral vascular disease (CMS/HCC); Plantar fasciitisStart: 07-06-2024 End: 18-66-4957hlvrpsuklvYQYVFAXGR H SMITHNot AvailableStart: 05-11-2024 End: 19-60-7917gwvbaucbhzCUWKTogus VA Medical Centertart: 05-03-2024 End: 84-42-2729Atujoy Severo Acuña DPM Work Phone: noms [facility] PODIATRYStart: 05-03-2024 End: 75-89-3960Zaplar Severo Acuña DPM Work Phone: noms [facility] PODIATRYStart: 05-03-2024 End: 32-40-2956Bxurdob encounter procedureCapo Acuña DPM Work Phone: noms [facility] PODIATRYComment on above:Onychomycosis (Primary Dx); Corns and callosities; Other specified peripheral vascular diseases (CMS/HCC)Start: 05-03-2024 End: 88-69-6095ecijtwavjdQVGEIPCZW H SMITHNot AvailableStart: 04-10-2024 End: 21-05-4030pzkmsitmlkMTATTogus VA Medical Centertart: 02-24-2024 End: 66-09-3828Qvb Drop offJodi L Linda [facility] Start: 02-24-2024 End: 94-80-1786mdmvkrpplcVgnk L SchwabFacility:[facility] BellevueStart: 02-23-2024 End: 91-17-3981Wrdhbe Severo Acuña DPM Work Phone: noms [facility] PODIATRYStart: 02-23-2024 End: 90-48-1238Tvgckl Severo Acuña DPM Work Phone: noms [facility] PODIATRYStart: 02-23-2024 End: 22-81-2652Kapqrua encounter procedureCapo Acuña DPM Work Phone: noms [facility] PODIATRYComment on above:Onychomycosis (Primary Dx); Corns and callosities; Other specified peripheral vascular diseases (CMS/HCC); Pain in both feetStart: 02-23-2024 End: 38-39-3429herhpdejqrNEECHVDMZ H SMITHNot AvailableStart: 02-15-2024 End: 05-49-7426fkgzprkpcyVESMFR A LEHMANNFacility:[facility] BellevueStart: 12-24-2023 End: 13-78-1072xghecdswdlAiid L SchwabFacility:[facility] BellevueStart: 12-22-2023 End: 64-49-7618Jrzxog flowsHector Acuña DPM Work Phone: noms [facility] PODIATRYStart: 12-22-2023 End: 84-70-3180Rwyifp flowsHector Acuña DPM Work Phone: noms [facility] PODIATRYStart: 12-22-2023 End: 86-84-6595Ifbwqor encounter procedureCapo Acuña DPM Work Phone: noms SWS PODIATRYComment on above:Onychomycosis (Primary Dx); Pain in both feet; Corns and callosities; Other specified peripheral vascular diseases (CMS/HCC)Start: 12-22-2023 End: 36-48-4213qkyczgpcnoFFCCPWRCX H SMITHNot AvailableStart: 08-24-2023 End: 96-78-4154Ovp Drop offJodi L Linda [facility] Start: 02-02-2023 End: 20-95-5251Qlw Drop offJodi L Linda [facility] Start: 06-05-2022 End: 84-39-7811effvhxfexnKD KIM E KNIGHT .Facility:X2Xnumz: 12-24-2021 End: 80-85-9971wtxbqktxzcIM KIM E KNIGHT .Facility:M2Wydme: 12-19-2021 End: 52-16-5943zqbjmyghhfST KIM E KNIGHT .Facility:Z5Stecx: 12-12-2021 End: 33-01-9805fpuvyxgzczOO KIM E KNIGHT .Facility:M7Jtpio: 12-03-2021 End: 02-48-1255dgcsskpysbYW [place] Kiran DOMENICOFacility:Z3Mlbds: 12-02-2021 End: 26-22-2502duynaihhrpSA KIM E KNIGHT .Facility:U8Xzbcy: 10-17-2021 End: 04-16-1077qmsjwttfexIK KIM E KNIGHT .Facility:V9Bggpp: 09-24-2021 End: 98-49-6037khcmawhsguPH MICHAEL NILL .Facility:S4Wlovo: 79-62-3021dezkzsalik DR LAMAR SEXTON .Facility:P2Qknno: 08-20-2021 End: 58-12-1143ienwjfdntdTC KIM E KNIGHT .Facility:H1 Procedures DateProcedureProcedure DetailPerforming ClinicianStart: 99-79-9800Narexski extraction and insertion of intraocular lensJodi Linda Start: 34-01-5992Xrstmuvx extraction and insertion of intraocular lensJodi Linda Start: 69-55-4643XuyyujydntxFacw Linda Start: 62-01-7061YytivjtfdzpNdsk Linda Start: 63-26-5202YvyampootggVjry Linda AppendectomyJodi Linda Arthroplasty of kneeJodi Linda Comment on above:leftCervical polypectomyJodi Linda CholecystectomyJodi Linda CystoscopyJodi Linda Dilation of urethraJodi Linda Plan of Treatment DateCare ActivityDetailAuthorStart: 52-92-8274Xyyrzqaqd vaccinationInfluenza Vaccine (#1)[facility] HealthcareStart: 11-27-2024 End: 02-52-4048Opkzdmo encounter /11/2025 10:15 AM EDT Procedure [facility] [address] [place], [id number] Capo Acuña, DPM [address] [place] [address] ArrivedNOMS Jamison PodiatryComment on above:ArrivedStart: 11-15-2024 End: 87-38-8100Iecoama encounter luojhyihw28/30/2025 8:15 AM EDT Procedure Visit [facility] [address] [place] [phone] Capo Acuña, DPM [address] [place] [address] [facility] PODIATRYStart: 09-21-2024 End: 79-53-8084Ameyhhe encounter yhimcehlm02/05/2025 9:30 AM EDT Procedure Visit [facility] [address] [place] [id number] Capo Acuña, DPM [address] [place] [address] ArrivedNOMS [facility] PODIATRYComment on above:ArrivedStart: 09-12-2024 End: 61-47-7100Daexcty encounter /27/2025 9:15 AM EDT Procedure Visit [facility] [address] [place] [phone] Capo Acuña, DPM [address] [place] [address] [facility] [facility] PODIATRYStart: 09-06-2024 End: 76-39-0945Hdowtzl encounter srqxubgrw90/21/2025 10:15 AM EDT Procedure Visit [facility] [address] [place] [address] Capo Acuña, DPM [address] [place] [address] [facility] PODIATRYStart: 07-06-2024 End: 39-24-2451Lxlfcph encounter hevuunsvl81/20/2025 8:00 AM EDT Procedure Visit [facility] [address] [place] [address] Capo Acuña, DPM [address] [place] [address] [facility] PODIATRYStart: 07-03-2024 End: 98-61-1362Wreyefg encounter whexjizzf45/17/2025 10:15 AM EDT Procedure Visit [facility] [address] [place] [address] Capo Acuña, DPM [address] [place] [address] [facility] PODIATRYStart: 05-03-2024 End: 96-06-1610Wqomeca encounter /15/2025 9:00 AM EST Procedure Visit [facility] [address] [place] [address] Capo Acuña, DPM [address] [place] [address] ArrivedN[facility]S [facility] PODIATRYComment on above:ArrivedStart: 04-27-2024 End: 86-57-0205Rjpjgon encounter tfinscups34/09/2025 10:45 AM EST Procedure Visit [facility] [address] [place] [address] Capo Acuña, DPM [address] [place] [address] [facility] PODIATRYStart: 02-23-2024 End: 58-72-6539Gnxmwna encounter procedureNOMS [facility] PODIATRYComment on above: ArrivedStart: 12-22-2023 End: 27-82-3124Qxjzunq encounter yfxqlbssj75/04/2024 10:00 AM EDT Procedure Visit [facility] [address] [place] [address] Capo Acuña, DPM [address] [place] [address] [facility] PODIATRYComment on above: ArrivedStart: 30-04-0393Lnxxikiru vaccinationInfluenza Vaccine (#1)[facility] Immunizations Immunization DateImmunizationNotesCare FqnhmvzsDfttkzll72-57-1677kinkvvtcm virus vaccine, unspecified formulationCapo Acuña DPM Work Phone: NOSaint [facility] SystemTbkdqkfibm97-92-1227WHYO-RoS-5 mRNA (tozinameran 5y-11y) vaccineJodi Linda [phone]-FyewwSamaritan Hospital Comment on above:Result Comment: covid 19 uxfb-fbjwhyv07-91sudlurs70-63-6589ujxsdsrnu virus vaccine, unspecified formulationCaethan Acuña DPM Work Phone: [phone]-TkjgqSamaritan Hospital 12-69-2016SQUM-CoV-2 (COVID-19) mRNAMUL.ORD!q11643Xgdi Linda [phone]-AvrppMercy Health [facility] Hospital10-25-2022 influenza virus vaccine, unspecified formulationJodi Linda 542-1969Cksffo-BywbiMercy Health Allen Hospital07-27-2022 SARS-CoV-2 mRNA (pspiyoujqrt-hicm-httxjfp) vaccineJodi Linda 768-1387Kdrlou-ZwudtMercy Health Allen Hospital10-07-2021 SARS-CoV-2 (COVID-19) mRNA BNT-162b2 vaxJodi Linda [phone]-AtalzSt. Francis HospitalueComment on above: Result Comment: 2022-11-25: BVH0359-48-2595FJPD-UjL-4 (COVID-19) mRNA BNT-162b2 vaxJodi Linda [phone]-HqnksSt. Francis HospitalueComment on above: Result Comment: 2022-11-25: [id number]-NhA-9 (COVID-19) mRNA BNT-162b2 vaxJodi Linda [phone]-JayxoMercy Health Allen HospitalComment on above: Result Comment: 2022-11-25: OPD3571-70-7538lxxqifjhs virus vaccine, unspecified formulationJodi Linda 428-1887Wkqsqn-HtxhfMercy Health Allen Hospital01-01-2020 pneumococcal conjugate vaccine, 13 valentJodi Linda [phone]-UniodSt. Francis Hospitalue11-07-2019 influenza virus vaccine, unspecified formulationJodi Linda 260-0755Znwfly-NhkvlMercy Health Allen Hospital02-06-2019 pneumococcal polysaccharide vaccine, 23 valentJodi Linda 288-2260Jtzlnh-NzsdjMercy Health Allen Hospital10-30-2018 influenza virus vaccine, unspecified formulationJodi Linda 135-2257Otufkn-BicvgMercy Health [facility] Hospital11-08-2017 influenza virus vaccine, unspecified formulationJodi Linda [phone]-OltswMercy Health Allen Hospital11-18-2016 pneumococcal conjugate vaccine, 13 valentJodi Linda [phone]-CubziMercy Health Allen Hospital11-03-2016 influenza virus vaccine, unspecified formulationJodi Linda [phone]-PghmtMercy Health Allen Hospital11-04-2014 influenza virus vaccine, unspecified formulationJodi Linda [phone]-HmhmwMercy Health [facility] Hospital11-06-2013 influenza virus vaccine, unspecified formulationJodi Linda [phone]-CgchnMercy Health Allen Hospital11-18-2010 influenza virus vaccine, unspecified formulationJodi Linda [phone]-HueodMercy Health Allen Hospital10-20-2009 influenza, wholeJodi Linda [phone]-FltelMercy Health Allen HospitalNEGATED: Highlighted row has not occurred!53-91-8556fxtdpghpv virus vaccine, unspecified formulationJodi Linda [facility] Payers DatePayer CategoryPayerPolicy [id number] Health InsuranceMEDICAL MUTUAL .[id number] .[id number] 2008Medicare [id number] [id number] 2.16.840.1.469369.3.57[id number] 2.16.840.1.528818.3.57[id number] 2.16.840.1.489796.3.57[id number] 2.16.840.1.500681.3.57[id number] 2.16.840.1.431727.3.57[id number] 2.16.840.1.259552.3.57[id number] 2.16.840.1.636442.3.57[id number] 2.16.840.1.477677.3.579.2.57893-30-2259Hhmumib0333137 2.16.840.1.880818.3.579.2.86492-36-3346Jvbvjfc0936351 2.16.840.1.791005.3.579.2.524[id number] 2.16.840.1.476161.3.57[id number] 2.16.840.1.406924.3.57[id number] 2.16.840.1.499007.3.579.2.82462-77-6993Yhyfqed75873638 2.16.840.1.050835.3.579.2.519815-24-0469Xfmuova08165212 2.16.840.1.810490.3.579.2.770535-39-4747Cejizop2349373 2.16.840.1.234521.3.579.2.116028-27-0147Lapanls7491560 2.16.840.1.921925.3.579.2.354973-59-9694Rfhkddw8019929 2.16.840.1.324253.3.579.2.582946-83-9208Gdgcxkr4451637 2.16.840.1.483347.3.579.2.042228-81-2929Cvmcuxl64181385 2.16.840.1.291263.3.579.2.08761-43-5469Kynrsbp96482743 2.840.1.078294.3.57[id number] 2..840.1.196968.3.579.2.82602-92-7887Qemdofl00652398 2..840.1.208412.3.579.2.91149-46-4974Qxtaxqr70173019 2.840.1.736677.3.579.2.51353-30-4924Yeulnfq47111649 2.840.1.375715.3.579.2.51554-88-7510Fklnwtp33826150 2.840.1.923846.3.579.[id number] 2.840.1.900144.3.579.2.727 Social History DateTypeDetailFacilityStart: 11-03-2022 End: 43-43-5026Flowaak smoking statusNever smoked tobacco (finding)[facility] BellevueComment on above:neverTobacco smoking statusNeSelect Medical Specialty [facility] BellevueComment on above:neverStart: 12-22-2023 End: 67-24-0724Jmq Assigned At BirthFeMetroHealth [facility] CenterStart: 05-46-1454Nduzcke use and exposureSmokeless tobacco non-userNOMS Healthcare Start: 12-22-2023 End: 66-51-7114Osopollfi beverage intakeLifetime non-drinker (finding)[facility] HealthcareStart: 12-22-2023 End: 98-88-1236Xjllfdh of Social functionNOMS HealthcareStart: 84-30-7819Ggnxlzr Commentcaffeine intake: 2-3 cups per day coffee,chocolateNOMS HealthcareStart: 89-61-9858Oyd assigned at birthNot on [facility] Medical Equipment Procedure CodeEquipment CodeEquipment Original TextEquipment IdentifierDates CATARACT EXTRACTION W/ INTRAOCULAR LENS Fredy Moseley DO 04/30/20 Non Biological Eye L{01}[id number] FDAStart: 16-17-6544IAEDSPJF EXTRACTION W/ INTRAOCULAR LENS Fredy Moseley DO 05/14/20 Non Biological Eye R {01}[id number] FDAStart: 05-14-2020 Clinical Notes 08-20-2021 to 02-05-2025 Note Date & MmbiDuqrTpbkocau54-53-6979 [facility] Chief Complaint: Patient is here today for a 3 month follow up with medication change, Losartan increased to 50 mg. Patient states she has occasional SOB/TRAVIS with walking and hurrying, occasional dizziness/off balance. Patient states her blood pressure have been up and down, patient states she feel better when its in the 120 or above [...] home are typically in the 130s to 140s millimeters of mercury systolic. Her shortness of breath [...] kg (187 lb) SpO2 100% BMI 29.29 kg/m??? Physical Examination: GENERAL: alert and oriented [...] mmHg. Severely dilated left atrium. Stress test 04/28 (more content not included)...[facility]08-21-2025 NotePatient Education Cardiovascular Managing Your Hypertension Hypertension, also [...] pressure. It is a measure of the pressurein your arteries as the heart relaxes. For [...] low in salt (sodium), added sugar, and fat.An example eating plan is called the DASH [...] hypertension should eat less than 1,500 mg ofsodium a day. Lifestyle ??? Work with your [...] changes are not enough (more content not included)...[facility]08-11-2025 History of Present illness Narrative* Capo Chuck Acuña DPM - 11/27/2024 10:15 AM EDT Images from the original note [...] pain and problems developing from the overgrowth ofthe toenails. Callous: 1. Hyperkeratosis/porokeratosis as above noted was debrided. 2. Instructed patient on use of aperture pads or Silipos padding/toe spacers to prevent rubbing andcontinued development of the hyperkeratosis. 3. Also discussed use of moisturizing creams for overall increased hydration to the skin. 4. Discussed continued use of proper foot gear to avoid excess pressure over the callous site. documented in this encounterChristian HospitalYzomfmbiyk13-53-1813 NotePatient is here today for a 6 month follow up. Patient states she feels the same as always, lacking in energy. Patient states the SOB is better. Patient denies chest pain, leg swelling, dizziness/lighted ness, and palpitations. Patient would like the results of her labs done in June.[facility]07-29-2025 NoteSUBJECTIVE Reason for Visit: Nori Quezada is a [...] ---> increase to 50 (more content not included)...[facility]06-05-2025 History of Present illness Narrative* Capo H Domenico, GARFIELD - 09/21/2024 9:30 AM EDT Images from the original note [...] past 5-6 weeks. She has tried some stretchingand states that it is getting slightly better. [...] pain and problems developing from the overgrowth ofthe toenails. Callous: 1. Hyperkeratosis/porokeratosis as above noted was debrided. 2. Instructed patient on use of aperture pads or Silipos padding/toe spacers to prevent rubbing andcontinued development of the hyperkeratosis. 3. Also discussed use of moisturizing creams for overall increased hydration to the skin. 4. Discussed continued use of proper foot gear to avoid excess pressure over the callous site. documented in this encounterChristian HospitalKgrfzojqps05-91-3685 History of Present illness Narrative* Capo Acuña DPM - 07/06/2024 8:00 AM EDT Images from the original note [...] past 5-6 weeks. She has tried some stretchingand states that it is getting slightly better. [...] pain and problems developing from the overgrowth ofthe toenails. Callous: 1. Hyperkeratosis/porokeratosis as above noted was debrided. 2. Instructed patient on use of aperture pads or Silipos padding/toe spacers to prevent rubbing andcontinued development of the hyperkeratosis. 3. Also discussed [...] and tolerance to normal gait forces relative tostanding, walking, and running. Our goal is for [...] FO, therapy if needed. documented in this encounterChristian HospitalNqhimcaxom16-72-9816 NoteBEL[facility]UE [facility] Note Chief Complaint: Here to [...] has no current ca (more content not included)...[facility]01-15-2025 History of Present illness Narrative* Capo Acuña, DPM - 05/03/2024 9:00 AM EST Images from the original note were not [...] pain and problems developing from the overgrowth ofthe toenails. Callous: 1. Hyperkeratosis/porokeratosis as above noted was debrided. 2. Instructed patient on use of aperture pads or Silipos padding/toe spacers to prevent rubbing andcontinued development of the hyperkeratosis. 3. Also discussed use of moisturizing creams for overall increased hydration to the skin. 4. Discussed continued use of proper foot gear to avoid excess pressure over the callous site. documented in this encounterChristian HospitalYleatxrdyf95-46-9344 NoteBELLEVUE [facility] Card[facility] Note Chief Complaint: New patient [...] her after testing. Ian Sims MD, MPH, [facility], [facility], [facility] Interventional Cardiology Pager Email: [email or web address]11-06-2024 History of Present illness Narrative* Capo Acuña DPM - 02/23/2024 9:15 AM EST Images from the original note were not [...] Ivelisse Guillory MD Date of Last visit 9/5/24 Aggravated by: shoe gear, pressure. Risk factors: [...] or Silipos padding/toe spacers to prevent rubbing andcontinued development of the hyperkeratosis. 3. Also discussed use of moisturizing creams for overall increased hydration to the skin. 4. Discussed continued use of proper foot gear to avoid excess pressure over the callous site. documented in this encounterChristian HospitalMkniezeokt80-57-4636 NotePatient Education Immunology Allergic Rhinitis, Adult Allergic rhinitis [...] or stuffy nose (nasal congestion). Other symptoms mayinclude: ??? Sneezing or coughing. ??? Itching and [...] symptoms, such as anti-inflammatories or antihistamines. These maybe given as a shot, nasal spray, or [...] and dust often. General instructions ??? Take ntub-xda-vcobent and prescription medicines only as told by your doctor. ??? Drink enough fluid to keep your pee pale yellow. Where to find more information ??? [employer]: aaaai.org [...] provider. Document Revised: 12/14/2022 Document Reviewed: 12/14/2022 [employer] Patient Education ? 2023 [employer] 12-22-2023 History of Present illness Narrative* Capo Acuña DPM - 12/22/2023 10:00 AM EDT Images from the original note [...] or Silipos padding/toe spacers to prevent rubbing andcontinued development of the hyperkeratosis. 3. Also discussed use of moisturizing creams for overall increased hydration to the skin. 4. Discussed continued use of proper foot gear to avoid excess pressure over the callous site. documented in this encounterChristian HospitalHhfgrljprd84-80-0215 NoteOPERATIVE NOTE OPERATION DATE: 09/24/2021 PREOPERATIVE DIAGNOSIS: Personal [...] the pathology report. CC: Brittany Freedman M.D. [facility] Signed and Approved by: DR LAMAR SEXTON . 09/25/2021 12:58:00[facility]05-04-2022 NoteOPERATIVE NOTE OPERATION DATE: 08/20/2021 PREOPERATIVE DIAGNOSIS: Change [...] after different prep. CC: Brittany Freedman M.D. [facility] Signed and Approved by: DR LAMAR SEXTON . 08/21/2021 07:27:00[facility] note Future Appointments Appointment Date:03/16/2023 09:00:00 AM Scheduled Provider:Sabina Ruth Location:[facility] Appointment Type: Open Appointment Date:12/03/2023 02:00:00 PM Scheduled Provider: Location:[facility] Appointment Type: Medicare Wellness [facility] Future Appointments Appointment Date:11/25/2023 01:00:00 PM Scheduled Provider: Location:[facility] Appointment Type: Medicare Wellness Subsequent Appointment Date:02/24/2024 10:00:00 AM Scheduled Provider:Sabina Ruth Location:[facility] Future Appointments Appointment Date:12/07/2024 11:00:00 AM Scheduled Provider: Location:[facility] Appointment Type: Medicare Wellness Subsequent [facility] Evaluation note* Diagnosis Onychomycosis- Primary Dermatophytosis of nail Corns and callosities Other specified peripheral vascular diseases (CMS/HCC) Pain in both feet documented in this encounter [facility] HealthcareEvaluation note* Diagnosis Onychomycosis- Primary Dermatophytosis of nail Pain in both feet Corns and callosities Other specified peripheral vascular diseases (CMS/HCC) documented in this encounter [facility] HealthcareEvaluation note* Diagnosis Onychomycosis- Primary Dermatophytosis of nail Corns and callosities Other specified peripheral vascular diseases (CMS/HCC) documented in this encounter [facility] HealthcareEvaluation note* Diagnosis Onychomycosis- Primary Dermatophytosis of nail Corns and callosities Other specified peripheral vascular diseases (CMS/HCC) Pain in both feet Peripheral vascular disease (CMS/HCC) Unspecified peripheral vascular disease Plantar fasciitis Plantar fascial fibromatosis documented in this encounter [facility] HealthcareEvaluation note* Diagnosis Onychomycosis- Primary Dermatophytosis of nail Corns and callosities Other specified peripheral vascular diseases Pain in both feet documented in this encounter [facility] HealthcareEvaluation note* Diagnosis Onychomycosis- Primary Dermatophytosis of nail Corns and callosities Other specified peripheral vascular diseases Pain in both feet documented in this encounter [facility] HealthcareHospital course Narrative No data available for this section [facility] No data available for this section [facility] CenterProgress [facility] No data available for this section [facility] Summary Purpose Family History No Family History [...] section and content) DATE CREATED AUTHOR 07/25/2022 [facility] DATE CREATED AUTHOR AUTHOR'S ORGANIZ ATION 02/26/2024 [facility] DATE CREATED AUTHOR AUTHOR'S ORGANIZ ATION 07/18/2024 [facility] DATE CREATED AUTHOR AUTHOR'S ORGANIZ ATION 11/28/2024 [facility] DATE CREATED AUTHOR AUTHOR'S ORGANIZ ATION 12/08/2024 [facility] DATE CREATED AUTHOR AUTHOR'S ORGANIZ ATION 12/09/2024 [facility] DATE CREATED AUTHOR AUTHOR'S ORGANIZ ATION 02/05/2025 [facility] Patient Care team informatio n (unrecognized section and content) Team MemberRelationshipSpecialtyStart DateEnd Date Awais Guillory MD [address] [place] [address] PCP - GeneralFamily Jorafewf77/11/23am MemberRelationshipSpecialtyStart Date End Date Awais Guillory MD [address] [place] [address] PCP - GeneralFamily Wqmhhafl98/11/23 MemberRelationshipSpecialtyStart Date End Date Awais Guillory MD PCP - GeneralFamily Ntryrlow46/11/23 MemberRelationshipSpecialtyStart Date End Date Awais Guillory MD PCP - GeneralFamily Snzlntlg57/11/23 MemberRelationshipSpecialtyStart Date End Date Awais Guillory MD [address] [place] [address] PCP - GeneralFamily Deuwcyyo20/11/23Team MemberRelationshipSpecialtyStart Date End Date Awais Guillory MD [address] [place] [address] PCP - GeneralFamily Ypuiiedt17/11/23Te MemberRelationshipSpecialtyStart Date End Date Awais Guillory MD [address] [facility] [place] [address] [facility]01/27/23Te MemberRelationshipSpecialtyStart Date End Date Awais Guillory MD [address] [facility] [address] [facility]01/27/23[facility] MemberRelationshipSpecialtyStart Date End Date Awais Guillory MD [address] [facility] [place] [address] [facility]01/27/23Te MemberRelationshipSpecialtyStart Date End Date Awais Guillory MD [address] [facility] [place] [address] [facility]01/27/23 FOR RECORDS PERTAINING TO PATIENTS WHO ARE [...] BE BASED ON THE PRIMARY CLINICAL RECORDS. [email or web address] [facility]. provides no warranty or guarantee of the accuracy or completeness of information in this document.
--- OUTSIDE RECORDS SUMMARY | 2025-02-07 13:00 | XMS_ITS | Clinical Summary ---
Author Organization [facility] Address [address] [place] [address] Care Team Providers Care Customs Investigator Name Role Phone Shiv Guillory MD Primary Care Provider [phone] Allergies No known active allergies Medications MedicationSigDispense QuantityRefillsLast FilledStart DateEnd DateStatus losartan (Cozaar) 25 MG tablet Take 25 mg by mouth in the morning and 25 mg before bedtime.12/08/2022ctive colestipol (Colestid) 1 g tablet Take 1 g by mouth in the morning.01/20/2023ctive alendronate (Fosamax) 70 MG tablet Take 70 mg by mouth 1 (one) time per week.12/17/2022ctive albuterol HFA (Ventolin HFA) 90 mcg/act inhaler Inhale 2 puffs every 6 (six) hours if needed (only as needed).Active Butalbital-Acetaminophen 50-300 MG tablet 1 tablet as needed Orally every 4-6 hours as neededActive Active Problems ProblemNoted DateDiagnosed DateAcquired hammer toe of left foot01/27/2023 Acquired hammer toe of right foot01/27/20234039Pyxgqrzclxaa28/11/2023orokeratosis 01/27/2023 Encounters DateTypeDepartmentCare EzxiCejkhermwsh28/11/2025 10:15 AM EDTProcedure Visit [facility] [place] [facility] [address] [place] [id number] Ada Acuña DPM Onychomycosis (Primary Dx); Corns and callosities; Other specified peripheral vascular diseases; Pain in both feet11/27/2024amboo flowsheet [facility] [address] [place] [phone] Ada Acuña DPM 11/27/2024Travelfrom Last 3 Months Family History Medical HistoryRelationNameCommentsCancerFatherRelationNameStatusCommentsFather DeceasedMotherDeceased Social History Tobacco UseTypesPacks/DayYears UsedDateSmoking Tobacco: NeverSmokeless Tobacco: Never Tobacco Cessation:Counseling Given: Not Answered Alcohol UseStandard Drinks/WeekCommentsNever0 (1 standard drink = 0.6 oz pure alcohol)caffeine intake: 2-3 cups per day coffee,chocolateComments UnknownSex and Gender InformationValueDate RecordedSex Assigned at BirthNot on fileLegal XfhKewiju27/15/2023 6:49 PM EDTGender IdentityNot on fileSexual OrientationNot on file Last Filed Vital Signs Vital SignReadingTime TakenCommentsBlood Vbkbhicv469/6004/ 12:00 PM EDT Pulse--Temperature--Respiratory Rate--Oxygen Saturation--Inhaled Oxygen Concentration--Afxhct34.2 kg (179 lb)11/13/2020 12:00 PM QMAYoumrr582.2 cm (5' 7 )06/26/2022 12:00 PM ESTBody Mass Index28.04011/13/2020 12:00 PM EDT Plan of Treatment DateTypeDepartmentCare Team (Latest Contact Info)Fvuublmxelf68/23/2025 3:45 PM EDTProcedure Visit [facility] [facility] [address] [place] [phone] Ada Acuña DPM [address] [place] [address] Health MaintenanceDue DateLast DoneCommentsInfluenza Vaccine (#1)12/18/2024 03/17/2024, 02/26/2023, 02/10/2022, Additional history existsPneumococcal Vaccine: 65+ YyznaZgvcqwkxx81/01/2020, 05/25/2018, 03/06/2016 Insurance Care Teams Team MemberRelationshipSpecialtyStart DateEnd Date Shiv Guillory MD [address] [place] [address] PCP - GeneralFamily Ypwdamjl49/11/23
[2025-02-07 13:05] LABS: Hemoglobin 12.7 g/dL (12.0-16.0)
[2025-02-07] MEDS: ALBUTEROL SULFATE 2.5 MG/3 ML VIAL NEB IH (13:33)
== END 2025-02-07 12:55 | disposition home or self-care (01) ==
LOC: CARD 12:55
PROVIDERS: PCP Nurse Practitioner; Visit Provider Internal Medicine Interventional Cardiology
DX: R06.02 Shortness of breath (principal)
CPT/HCPCS: 36415; 85018; 94060; 94726; 94729

== ENCOUNTER 2025-02-12 09:38 | Outpatient (OUT) | payer MEDICARE, OTHER, SELFPAY ==
--- OUTSIDE RECORDS SUMMARY | 2025-02-05 09:45 | XMS_ITS | Encounter Summary ---
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); Shortness of breath Social History Tobacco UseTypesPacks/DayYears UsedDateSmoking Tobacco: NeverSmokeless Tobacco: NeverAlcohol UseStandard Drinks/WeekCommentsYes0 (1 standard drink = 0.6 oz pure alcohol)occasionallyCommentsUnknownSex and Gender InformationValueDate RecordedSex Assigned at LqeptBcrlgo09/29/2025 10:13 AM EDTLegal SexFemale 04/03/2024 8:56 AM ESTGender HvepjppsDalhai89/29/2025 10:13 AM EDTSexual OrientationHeterosexual or Wpkvuoxg68/29/2025 10:13 AM EDTdocumented as of this encounter Last Filed Vital Signs Vital SignReadingTime TakenCommentsBlood Bykuemvf866/6710 9:59 AM EDT Fhqnq902902/05/2025 9:59 AM EDTTemperature--Respiratory Rate--Oxygen Saturation 100%02/05/2025 9:59 AM EDTInhaled Oxygen Concentration--Kurrrw81.8 kg (187 lb) 02/05/2025 9:59 AM NRBHdupkc405.2 cm (5' 7 )02/05/2025 9:59 AM EDTBody Mass Index29.291 9:59 AM EDTdocumented in this encounter Functional Status * BPAnswerDate of QlktkvdvucBvgcnr469/6702/05/2025 9:59 AM EDChristy Sousa MA * PulseAnswerDate of KsbnejybuiXiljqy9085/20/2025 9:59 AM Christy Fong MA * Patient PositionAnswerDate of XehfntmdkgJvmnxpPvurcne54/20/2025 9:59 AM EDT Christy Banda MA * BPAnswerDate of MzxdyxtnyoLexhdw392/6702/05/2025 9:59 AM Christy Fong MA * PulseAnswerDate of LyswioejkdWpyjfi7140/20/2025 9:59 AM Christy Fong MA * UyL6QmpeppRmec of LklfwubbpuZgrsqm85085/20/2025 9:59 AM Christy Fong MA * BP LocationAnswerDate of AssessmentAuthorLeft arm02/05/2025 9:59 AM EDT Christy Banda MA * Patient PositionAnswerDate of AcajopkcgjFwpueyUwcnuyr22/20/2025 9:59 AM EDT Christy Banda MA documented as of this encounter Progress Notes * Ian Sims MD - 02/05/2025 9:45 AM EDT Images from the original note were not included. [facility] Cardiology Clinic Note Chief Complaint: Patient is here today for a 3 month follow up with medication change, Losartan increased to 50 mg. Patient states she has occasional SOB/TRAVIS with walking and hurrying, occasional dizziness/off balance. Patient states her blood pressure have been up and down, patient states she feelbetter when its in the 120 or above and worse when its in the teens. Patient denies chest pain, racing heart/palpitations, leg swelling/pain, abnormal bleeding/bruising/discoloration HPI: Nori Quezada is a 84 y.o. female Here for symptoms of exertional [...] gastroesophageal reflux disease, dyslipidemia, migraine headaches, overweight Update 02/05/2025: Her blood pressure is improved; blood pressure readings from home are typically in the 130s to 140smillimeters of mercury systolic. Her shortness of breath continues. This typically occurs if she exerts herself. She denies chest pain. She has had no orthopnea or paroxysmal external dyspnea. She has no lower extremity edema. Cardiology ROS: Review of Systems Cardiovascular: Positive for dyspnea on exertion. Respiratory: Positive for shortness of breath. Neurological: Positive for dizziness. All other systems reviewed and are negative. Past Medical History She has a past medical history of Hypertension. Surgical History She has a past surgical history that includes Replacement total hip oncologic; Appendectomy; Cholecystectomy; and Replacement total knee oncologic. Social History She reports that she has never smoked. She has never used smokeless tobacco. She reports current alcohol use. She reports that she does not use drugs. Family History Family History Problem Relation Name Age of Onset No Known Problems Mother No Known Problems Father Allergies Cefuroxime Medications Current Outpatient Medications: alendronate (Fosamax) 70 mg tablet, Take 70 mg by mouth every 7 (seven) days., Disp: , Rfl: aspirin 81 mg chewable tablet, Chew 1 tablet (81 mg) in the morning., Disp: 90 tablet, Rfl: 3 atorvastatin (Lipitor) 40 mg tablet, Take 1 tablet (40 mg) by mouth in the morning., Disp: 90 tablet, Rfl: 3 colestipol (Colestid) 1 gram tablet, Take 1 g by mouth in the morning., Disp: , Rfl: hydroCHLOROthiazide (Microzide) 12.5 mg capsule, Take 25 mg by mouth in the morning., Disp: , Rfl: Klor-Con M20 20 mEq ER tablet, Take 20 mEq by mouth in the morning., Disp: , Rfl: losartan (Cozaar) 50 mg tablet, Take 1 tablet (50 mg) by mouth two times daily., Disp: 180 tablet, Rfl: 3 Last Recorded Vitals BP 169/67 (BP Location: Left arm, Patient Position: Sitting) Pulse 68 Ht 1.702 m (5' 7 ) Wt 84.8 kg (187 lb) SpO2 100% BMI 29.29 kg/m?? Physical Examination: GENERAL: alert and oriented x3, [...] disease Normal nuclear medicine myocardial perfusion scan Labs 07/03/2024: LFTs are normal Triglycerides 35, cholesterol 110, HDL 57, LDL 35 Assessment: Shortness of breath on exertion - Heart failure with preserved ejection fraction plus or minus pulmonary etiologies Fatigue History of hypertension - better controlled Dyslipidemia Carotid stenosis less than 50% Mild to moderate aortic valve regurgitation Moderately elevated right ventricular systolic pressure (46 mmHg) Plan: Will treat her for presumed diastolic dysfunction given the elevated RVSP and enlarged atria. Will add an SGLT2 inhibitor and check BMP in a week. Will consider spironolactone at her next visit. She will need serial monitoring for her carotid stenoses; I discussed with her the need for secondary preventive measures in the form of aspirin and a statin I would recommend investigations for potential pulmonary etiologies; I have taken the liberty of ordering pulmonary function test with and without bronchodilators She will need serial monitoring for her aortic valve regurgitation; annual echocardiograms We will plan to see her in 3 months or sooner should problems arise Ian Sims MD, MPH, FACC, [facility], [facility] Interventional Cardiology Pager Email: [email or web address] documented in this encounter Plan of Treatment DateTypeDepartmentCare Team (Latest Contact Info)Evoturjywse62/13/2026 10:30 AM ESTOffice Visit [facility] at [address] [address] Ian Sims MD [address] [facility] [place] [address] NameTypePriorityAssociated DiagnosesOrder ScheduleBasic metabolic panelLab Routine Acute combined systolic and diastolic heart failure (CMS/HCC) Expected: 02/05/2025 (Approximate), Expires: 02/05/2026Pulmonary function testing Spirometry; Body Box (lung volumes, airway resistance, and SVC), DLCOPFT Routine Shortness of breath Expected: 02/05/2025 (Approximate), Expires: 02/05/2026documented as of this encounter Visit Diagnoses Diagnosis Acute combined systolic and diastolic heart failure (CMS/HCC)- Primary Acute combined systolic and diastolic heart failure Shortness of breath documented in this encounter Care Teams Team MemberRelationshipSpecialtyStart DateEnd Date Sabina Mckeon, [place] [address] [place] [address] PCP - GeneralNurse Shuyzrobjvjt83/20/24documented as of this encounter
--- OUTSIDE RECORDS SUMMARY | 2025-02-12 09:43 | XMS_ITS | Clinical Summary ---
Author Organization [facility] Address [address] [place] [address], [address] [place] [address] Care Team Providers Care Accounting Director Name Role Phone Unavailable Primary Care Provider Unavailabl e Social History Tobacco UseTypesPacks/DayYears UsedDateSmoking Tobacco: Never Assessed CommentsUnknownSex and Gender InformationValueDate RecordedSex Assigned at Dmjyjb1912/06/2023 4:28 PM EDTLegal RsaTgfptb17/19/2024 4:25 PM EDTGender Identity Oxekwz0012/06/2023 4:28 PM EDTSexual RgtahuultscPwjexxqy00/19/2024 4:28 PM EDT Plan of Treatment Not on file
--- OUTSIDE RECORDS SUMMARY | 2025-02-12 09:43 | XMS_ITS | Clinical Summary ---
Author Organization [facility] Address [address] [place] [address] Care Team Providers Care Detective Bureau Chief Name Role Phone LindaAlessiadi TRAFFIC INSPECTOR-Kelsey Primary Care Provider Allergies Active AllergyReactionsCriticalityNoted DateCommentsCefuroximeItching,Other, KkuicysAqbr01/23/2024 Medications MedicationSigDispense QuantityRefillsLast FilledStart DateEnd DateStatus alendronate [...] ProblemNoted DateDiagnosed DateLump in neck11/14/2024llergic rhinitis, seasonal 04/10/20245515Nhguia65/23/2024MI 30.0-30.9,adult04/10/2024erumen impaction 04/10/2024hange in bowel ytwwsp4404/10/2024hest pain04/10/2024hronic UTI 04/10/20240353Mpend45/23/1343Wvlivmtztxjqfo83/23/5111Hwonfrj14/23/2024GERD (gastroesophageal reflux disease)04/10/2024History of colonic zibvwu1104/10/2024 HTN (hypertension)04/10/20243665Jatzfboarutmttyaqy32/23/2024Leg qarlms3906/11/2023 Uzljjwdpl52/23/2024Other fractures of lower end of left radius, subsequent encounter for closed fracture with routine jtdoafi8704/10/2024Shortness of breath 04/10/2024Vitamin D ubraqunlpv78/23/2024cquired hammer toe of left foot 01/27/2023cquired hammer toe of right foot01/27/20234058Xqwdltadaano12/11/2023 Hwmjrnyzoqqyu19/11/2023 Encounters DateTypeDepartmentCare OfoqHyrutbtuulq32/20/2025 9:45 AM EDTOffice Visit [facility] [address] [place] [address] Ian Sims MD 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); Shortness of deilvu6211/28/2024Telephone [facility] [address] [place] [address] Connie Abrams MA 11/14/2024 10:20 AM EDTOffice Visit [facility] [address] [place] [address] Alfredito Lepe, JANET Primary hypertension (Primary Dx); Nonrheumatic aortic valve insufficiency; Carotid stenosis, bilateral; Mixed hyperlipidemiafrom Last 3 Months Family History Medical HistoryRelationNameCommentsNo Known ProblemsFatherNo Known Problems MotherRelationNameStatusCommentsFatherDeceasedMotherDeceased Social History Tobacco UseTypesPacks/DayYears UsedDateSmoking Tobacco: NeverSmokeless Tobacco: Never Tobacco Cessation:Counseling Given: Not Answered Alcohol UseStandard Drinks/WeekCommentsYes0 (1 standard drink = 0.6 oz pure alcohol)occasionallyCommentsUnknownSex and Gender InformationValueDate RecordedSex Assigned at JaqnfQvgvkf97/29/2025 10:13 AM EDTLegal SexFemale 04/03/2024 8:56 AM ESTGender QurxbwrlIlnggb37/29/2025 10:13 AM EDTSexual OrientationHeterosexual or Tcvkmmly82/29/2025 10:13 AM EDT Last Filed Vital Signs Vital SignReadingTime TakenCommentsBlood Auzagxjp455/6702/05/2025 9:59 AM EDT Sawik603702/05/2025 9:59 AM EDTTemperature--Respiratory Rate--Oxygen Saturation 100%02/05/2025 9:59 AM EDTInhaled Oxygen Concentration--Xkmsro19.8 kg (187 lb) 02/05/2025 9:59 AM GAMEhvlua418.2 cm (5' 7 )02/05/2025 9:59 AM EDTBody Mass Index29.291 9:59 AM EDT Plan of Treatment DateTypeDepartmentCare Team (Latest Contact Info)Zbuqwcjwsim40/13/2026 10:30 AM ESTOffice Visit [facility] [address] [place] [address] Ian Sims MD [address] [facility] [place] [address] Health MaintenanceDue DateLast DoneCommentsMedicare Annual Wellness (AWV) 3Depression Uotkdczom69/11/1955Adult Ahfgrce4610/27/1964Zoster Vaccines (1 of 2)1992Fall Risk Hzoassuiz22/11/2008COVID-19 Vaccine ( season)5105/16/2022, 03/16/2023, 02/23/2022, Additional history exists Influenza Vaccine (#1)5105/17/2023, 02/26/2023, 02/10/2022, Additional history existsPneumococcal Vaccine: 50+ BrtdrLhzaxwijn84/01/2020, 05/25/2018, 03/06/2016HIB VaccinesAged OutNo longer eligible based [...] patient's age to complete this topic Insurance Care Teams Team MemberRelationshipSpecialtyStart DateEnd Date Sabina Mckeon FNP-C [address] [place], [place] [id number] PCP - GeneralNurse Bdbzvbjfscur96/20/24
--- OUTSIDE RECORDS SUMMARY | 2025-02-12 10:03 | XMS_ITS | CCD ---
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 Name Role Phone CORINA ., DR BRITTANY [...] Physician Awais Guillory MD Primary Care Provider [phone] Awais Guillory MD Primary Care Provider Linda RETORT LOAD EXPEDITER-ATTIC FANS MECHANIC, Sabina Burroughs Primary Care Unawicho Bojorquez MD, Zheng Thompson Attending Unavai labmagaly Bojorquez MD, Zheng Thompson Attending Unavai lable Ilnda RETORT LOAD EXPEDITER-ATTIC FANS MECHANIC, Sabina Burroughs Primary Care Unava ilable Linda RETORT LOAD EXPEDITER-ATTIC FANS MECHANIC, Sabina Burroughs Primary Care Unava yasir Bojorquez MD, Zheng Thompson Attending Unavai lable Linda, Sabina Hall Attending Unavailable ANNEMONICA Attending Unavailable Linda, Sabina Hall Attending Unavailable Linda, Sabina Hall Attending Unavailable Linda, Sabina Hall Admitting Unavailable Linda, Sabina Hall Attending Unavailable Linda, Sabina Hall Attending Unavailable Linda, Sabina Hall Admitting Unavailable Linda, Sabina Hall Attending Unavailable Linda, Sabina Hall Attending Unavailable Linda, Sabina Hall Attending Unavailable ELTAHAWY, EHAB Attending Unavailable ELTAHAWY, EHAB Attending Unavailable LIONEL, ALFREDITO Attending Unavailable ELTAHAWY, EHAB Attending Unavailable ROZINA, CAPO H Attending Unavailable ROZINA, CAPO H Attending Unavailable ROZINA, CAPO H Attending Unavailable ROZINA, CAPO H Attending Unavailable ROZINA, CAPO H Attending Unavailable ROZINA, CAPO H Attending Unavailable Allergies Allergy ClassificationReported Allergen(s)Allergy TypeDate of OnsetReaction(s) Facility (3 sources)Amitriptyline; Translations: [amitriptyline]Drug AllergyThe [facility] (1 source)CephalexinDrug Lkraike95-41-3658Bfs [facility] Repository (3 sources)Amitriptyline; Translations: [amitriptyline]Drug AllergyUnknown (qualifier value)[facility] (6 sources)Cefuroxime; Translations: [cefuroxime]Drug Ufyeobj42-92-7279Cfaubbk and collapse (disorder), Itching (finding)[facility] (3 sources)No Known Medication Allergies; Translations: [No Known Medication Allergies]Propensity to adverse reactions to drug (disorder)[facility] Repository Medications Current Medications MedicationDrug Class(es)DatesSig (Normalized)Sig (Original)acetaminophen 300 mg / butalbital 50 mg oral tablet (12 sources)Barbituratetake 1 tablet by mouth every four to six hours as needed Butalbital-Acetaminophen 50-300 MG tablet 1 tablet as needed Orally every 4-6 hours as needed Activeacetaminophen 325 mg / butalbital 50 mg / caffeine 40 mg oral tablet (2 sources)Barbiturate, Central Nervous System Stimulant, MethylxanthineStart: 58-98-4497swcm 1 tablet by mouth every four hoursAPAP/butalbital/caffeine 325 mg-50 mg-40 mg Tab 1 tab(s), Oral, q4hr Headache, 30 tab(s), Refill(s)0, [facility]/pharmacy #[id number], 166, cm, 03/16/23 9:10:00 EST, Height/Length Dosing, 85.6, kg, 03/16/23 9:10:00 EST, Weight Dosing Start Date: 03/16/23 Status: Ordered alendronic acid 70 mg oral tablet (15 sources)BisphosphonateStart: 59-25-7465viuvehqsust 70 mg Tab See Instructions, TAKE 1 TABLET ONCE EVERY 7 DAYS, # 12 tab(s), Refills(s) 0, Pharmacy: [facility] STORE [id number], 167.5, cm, 12/24/23 10:08:00 EDT, Height/Length Dosing, 83.2, kg, 12/24/23 10:08:00 EDT, Weight Dosing Start Date: 02/10/24 Status: OrderedStart: 76-97-3005nxlxiwbppbv 70 mg Tab 70 mg = 1 tab(s), Oral, q7day, # 12 tab(s), Refills(s) 0, Pharmacy: [facility]/pharmacy #[id number], 166, cm, 08/24/23 8:56:00 EDT, Height/Length Dosing, 84, kg, 08/24/23 8:56:00 EDT, Weight Dosing Start Date: 08/24/23 Status: OrderedStart: 27-56-2338akyf 1 tablet by mouth every weekalendronate (Fosamax) 70 MG tablet Take 70 mg by mouth 1 (one) time per week. 12/17/2022 Activeamoxicillin 500 mg oral capsule (1 source)Penicillin-class AntibacterialStart: 40-16-7939laksbvmpoir 500 mg Cap See Instructions, TAKE 4 CAPSULES BY MOUTH 1/2 HOUR BEFORE PROCESURE AND 2 CA PSULES 4 HOURS AFTER, # 6 caplet(s), Refills(s) 1, Pharmacy: [facility]/pharmacy #[id number], 166, cm, 08/24/23 8:56:00 EDT, Height/Length Dosing, 84, kg, 08/24/23 8:56:00 EDT, Weight Dosing Start Date: 08/24/23 Status: Orderedazithromycin 250 mg oral tablet (1 source)Macrolide AntimicrobialStart: 02-24-2024 End: 90-63-2636gmlexxarchqb 250 mg Tab = 1 packet(s), Oral, As Directed, as directed on package labeling, X 5 day(s), # 6 tab(s), Refills(s) 0, [id number] 167.5, cm, 02/24/24 10:05:00 EST, Height/Length Dosing, 83.8, kg, 02/24/24 10:05:00 EST, Weight Dosing Start Date: 02/24/24 Stop Date: 02/29/24 Status: Orderedcalcium carbonate 1500 mg oral tablet (3 sources)Start: 73-54-7113mdls 1 tablet by mouth once dailycalcium (as carbonate) 600 mg oral tablet 600 mg = 1 tab(s), Oral, Daily, Prophylaxis Start Date: 04/29/20 Status: OrderedCelebrate Multivitamin oral capsule (3 sources)Start: 65-95-9304qann 1 capsule by mouth once dailyCelebrate Multivitamin oral capsule 1 cap(s), Oral, Daily, Prophylaxis Start Date: 04/29/20 Status: Orderedcolestipol hydrochloride 1000 mg oral tablet (15 sources)Bile Acid SequestrantStart: 50-23-9529cjeb 1 tablet by mouth once dailycolestipol 1 g Tab See Instructions, TAKE 1 TABLET BY MOUTH EVERY DAY, # 90 tab(s), Refills(s) 1, Pharmacy: [facility] STORE [id number], 166, cm, 08/24/23 8:56:00 EDT, Height/Length Dosing, 84, kg, 08/24/23 8:56:00 EDT, Weight Dosing Start Date: 10/26/23 Status: OrderedStart: 35-98-9088ough 1 tablet by mouth once dailyColestid 1 g Tab 1 gm = 1 tab(s), Oral, Daily, # 90 tab(s), Refills(s) 1, [id number] 166, cm, 03/16/23 9:10:00 EST, Height/Length Dosing, 85.6, kg, 03/16/23 9:10:00 EST, Weight Dosing Start Date: 04/27/23 Status: OrderedStart: 18-74-3466lefd 1 tablet by mouth in the morningcolestipol (Colestid) 1 g tablet Take 1 g by mouth in the morning. 01/20/2023 ActiveStart: 35-56-1595bfgr 1 tablet by mouth once daily in the morningColestid 1 g oral tablet 1 gm = 1 tab(s), Oral, qAM, Refills(s) 0 Start Date: 04/07/21 Status: Ordered hydroCHLOROthiazide 12.5 mg oral capsule (3 sources)Thiazide DiureticStart: 36-88-6550imaq 1 capsule by mouth once daily hydrochlorothiazide 12.5 mg Cap See Instructions, TAKE 1 CAPSULE BY MOUTH EVERY DAY, # 90 cap(s), Refills(s) 3, Pharmacy: [facility] STORE [id number], 167.5, cm, 12/24/23 10:08:00 EDT, Height/Length Dosing, 83.2, kg, 12/24/23 10:08:00 EDT, Weight Dosing Start Date: 01/18/24 Status: OrderedStart: 94-79-0868bkcx 1 capsule by mouth once dailyhydrochlorothiazide 12.5 mg Cap 12.5 mg = 1 cap(s), Oral, Daily, # 90 cap(s), Refills(s) 3, [id number] 166, cm, 02/02/23 8:45:00 EDT, Height/Length Dosing, 85, kg, 02/02/23 8:45:00EDT, Weight Dosing Start Date: 02/26/23 Status: OrderedStart: 32-66-0223fjrq 1 capsule by mouth once dailyhydrochlorothiazide 12.5 mg Cap 12.5 mg = 1 cap(s), Oral, Daily, # 30 cap(s), Refills(s) 2, [id number], 166, cm, 02/02/23 8:45:00 EDT, Height/Length Dosing, 85, kg, 02/02/23 8:45:00EDT, Weight Dosing Start Date: 02/02/23 Status: Orderedlosartan potassium 25 mg oral tablet (15 sources)Angiotensin 2 Receptor BlockerStart: 12-08-2022 End: 30-50-7075qbpb 1 tablet by mouth in the morninglosartan (Cozaar) 25 MG tablet Take 25 mg by mouth in the morning and 25 mg before bedtime. 12/08/2022 ActivemethylPREDNISolone 4 mg oral tablet (1 source)CorticosteroidStart: 02-24-2024 End: 58-09-0413Kkramb 4 mg Tab = 1 packet(s), Oral, As Directed, as directed on package labeling, X 6 day(s), # 21tab(s), Refills(s) 0, [id number] 167.5, cm, 02/24/24 10:05:00 EST, Height/LengthDosing, 83.8, kg, 02/24/24 10:05:00 EST, Weight Dosing Start Date: 02/24/24 Stop Date: 03/01/24 Status: OrderedMisc Medication (1 source)Start: 20-61-7611Yrjf Medication Daily Start Date: 12/01/22 Status: OrderedNature's Bounty Red Krill Oil (2 sources)Start: 35-84-3822mupm 500 mg by mouth once dailyNature's Bounty Red Krill Oil 500 mg, Oral, Daily, Refill(s) 0 Start Date: 12/01/22 Status: Ordered microencapsulated potassium chloride 20 meq extended release oral tablet (4 sources)Start: 81-63-9364gwhb 1 tablet by mouth once dailyKlor-Con M20 oral tablet, extended release See Instructions, TAKE 1 TABLET BY MOUTH EVERY DAY, # 90tab(s), Refills(s) 1, Pharmacy: [facility] ST[facility] [id number], 167.5, cm, 12/24/23 10:08:00 EDT, Height/Length Dosing, 83.2, kg, 12/24/23 10:08:00 EDT, Weight Dosing Start Date: 01/18/24 Status: OrderedStart: 99-81-4222pkps 1 tablet by mouth once daily Klor-Con M20 oral tablet, extended release 20 mEq = 1 tab(s), Oral, Daily, # 90 tab(s), Refills(s) 1, Pharmacy: [facility]/pharmacy #[id number], 166, cm, 08/24/23 8:56:00 EDT, Height/Length Dosing, 84, kg, 08/24/23 8:56:00 EDT, Weight Dosing Start Date: 08/24/23 Status: OrderedProbiotic (1 source)Start: 15-41-6764luyl 1 tablet by mouth once dailyProbiotic Probiotic, 1 tab, Oral, Daily Start Date: 12/02/23 Status: OrderedVitamin D3 (3 sources)Start: 27-62-5272swpv 50 ug by mouth once dailyVitamin D3 50 mcg, Oral, Daily, Prophylaxis Start Date: 04/29/20 Status: Ordered Completed/Discontinued Medications MedicationDrug Class(es)DatesSig (Normalized)Sig (Original)albuterol 0.83 mg/ml inhalation solution (16 sources)beta2-Adrenergic AgonistStart: 08-79-0557zghnfnxsg 0.083% Inh Yaima 3 mL See Instructions, 30 EA, Refill(s) 1, INHALE CONTENTS OF 1 VIAL VIA NEBULIZER EVERY 4 HOURS*J45.909*, [facility]/pharmacy #[id number], 167.5, cm, 02/24/24 10:05:00 EST, Height/LengthDosing, 83.8, kg, 02/24/24 10:05:00 EST, Weight Dosing Start Date: 02/24/24 Status: OrderedStart: 42-79-8674kmdlhkciy NEB, q4hr, PRN Allergy symptoms, Refills(s) 0 Start Date: 12/01/22 Status: Orderedtake 2 puff(s) by inhalation every six hours as neededalbuterol HFA (Ventolin HFA) 90 mcg/act inhaler Inhale 2 puffs every 6 (six) hours if needed (only as needed). Active Problems Active Problems Problem ClassificationProblemDateDocumented DateEpisodic/ChronicAcquired foot deformities (12 sources)Acquired hammer toe of left foot; Translations: [Other hammer toe(s) (acquired), left foot]Onset: 538231-31-6263GpmybucOunbsvja foot deformities (12 sources)Acquired hammer toe of right foot; Translations: [Other hammer toe(s) (acquired), right foot]Onset: 696307-27-7791SwlnsfuWkslls (4 sources)Unspecified asthma, uncomplicated; Translations: [Asthma]Onset: 889602-55-4483RqgproiPvhpwdgwla associated with dizziness or vertigo (4 sources)Benign paroxysmal vertigo, unspecified ear; Translations: [BENIGN PAROXYSMAL VERTIGO UNS EAR]Onset: 74-68-6205KqacskknIozwfmcxlg heart failure; nonhypertensive (2 sources)Acute combined systolic (congestive) and diastolic (congestive) heart failure; Translations: [Acutecombined systolic (congestive) and diastolic (congestive) heart failure]Onset: 05-73-6735CirmtbwVrfvvenac of lipid metabolism (3 sources)Hypercholesterolemia; Translations: [Mixed hyperlipidemia]Onset: 872766-59-9593HkbozvlUkfzfyafpbspna and diverticulitis (4 sources)Diverticulosis of large intestine without perforation or abscess without bleeding; Translations: [Diverticular disease]Onset: 09-30-2021 92-57-4755OehksuaTvondfyrva disorders (4 sources)Gastro-esophageal reflux disease without esophagitis; Translations: [Gastroesophageal reflux disease]Onset: 512306-46-3455IhnnoohMfhiwymqw hypertension (6 sources)Essential (primary) hypertension; Translations: [Hypertensive disorder]Onset: 776312-62-2048OplkydeJvxwdzxu; including migraine (3 sources)Fxobfmrp60-93-4960MhgsqcqHakpw valve disorders (2 sources)Nonrheumatic aortic (valve) insufficiency; Translations: [Nonrheumatic aortic (valve) insufficiency]Onset: 71-83-1274OmhtqrcWwxgsvd and fatigue (7 sources)Other fatigue; Translations: [Fatigue]Onset: 61-96-4609Fzsbfvuo Mycoses (6 sources)Onychomycosis; Translations: [Tinea unguium]16-54-7777K[place]xsei Nonspecific chest pain (1 source)Chest cmwt94-74-6535SpctckpxFhaqygqmprv deficiencies (4 sources)Vitamin D deficiency, unspecified; Translations: [Vitamin D deficiency]Onset: 335487-94-4018CdyuygxQynekoabk or stenosis of precerebral arteries (2 sources)Occlusion and stenosis of bilateral carotid arteries; Translations: [Occlusion and stenosis of bilateral carotid arteries]Onset: 25-41-7329Efzbewa Osteoporosis (16 sources)Age-related osteoporosis without current pathological fracture; Translations: [Osteoporosis]Onset: 143573-33-6664HirghksYhjee and unspecified benign neoplasm (3 sources)History of polyp of xsxxa95-41-3751JxqfxnsfGplho circulatory disease (7 sources)Peripheral vascular disease; Translations: [Other specified peripheral vascular diseases]43-23-0026EhajlflVllyw congenital anomalies (12 sources)Porokeratosis; Translations: [Other specified congenital malformations of skin]Onset: 644928-29-6759HpzrbskFjzgs connective tissue disease (1 source)Presence of right artificial knee joint; Translations: [PRESENCE RT ARTIFICIAL KNEE JOINT]Onset: 02-48-8335CoprpjvYbikq connective tissue disease (2 sources)Cramp in lower wequ09-53-2592IuyrlqfzDnjrg connective tissue disease (5 sources)Pain in both feet; Translations: [Pain in right foot]02-23-2024 EpisodicOther connective tissue disease (1 source)Plantar fasciitis; Translations: [Plantar fascial fibromatosis] 89-63-6815VbudwuikWjxws ear and sense organ disorders (2 sources)Impacted -75-4902CyuwvtqgLganz gastrointestinal disorders (1 source)Irritable bowel syndrome without diarrhea; Translations: [IRRITABLE BOWEL SYND W/O DIARRHEA]Onset: 85-39-3615SsvogpuTmpmp gastrointestinal disorders (3 sources)Alteration in bowel dhfihzamgdn08-51-5718XcocqkcwPvtqp lower respiratory disease (6 sources)Shortness of breath; Translations: [SHORTNESS OF BREATH]Onset: 99-85-9334ZmgyjsifCkyhe lower respiratory disease (1 source)Xwzfj00-77-5992HektjrmkXvvjn lower respiratory disease (1 source)Zvzjgzf00-60-2377TtpyqramIzcel non-traumatic joint disorders (1 source)Hip girm10-80-1947IgwbvxcsYdijr nutritional; endocrine; and metabolic disorders (3 sources)Body mass index 30+ - -69-9455FkltdjsCfxfj nutritional; endocrine; and metabolic disorders (1 source)Body mass index 25-29 - iuzbnmucjk71-55-4130TcjktpyqKmfdv nutritional; endocrine; and metabolic disorders (1 source)Overweight in adulthood with body mass index of 25 or more but less than 4335-48-8434YfvvpaolYclxi skin disorders (6 sources)Callosity; Translations: [Corns and callosities]92-27-0501Vnpaordl Other upper respiratory disease (3 sources)Seasonal allergic ujxkzfvk61-97-3218YzxyjrqOpqzcxnbsvvb (3 sources)CONTACT W/AND (SUSP) EXPOS COVID-19; Translations: [CONTACT W/AND (SUSP) EXPOS COVID-19]Onset: 84-59-7583Kwdheas tract infections (3 sources)Chronic urinary tract jskcvcypb86-65-4283Cjeygxdu Past or Other Problems Problem ClassificationProblemDateDocumented DateEpisodic/ChronicAnal and rectal conditions (1 source)Rectal polyp; Translations: [RECTAL POLYP]Onset: 35-92-9092LeygfvtgN Codes: Adverse effects of medical drugs (1 source)Adverse effect of cephalosporins and other beta-lactam antibiotics, initial encounter; Translations: [ADVERS EFF CEPHALOSPOR OTH KYLE INIT]Onset: 13-72-8017TqvdyxbxNjuummhfuzvdh symptoms and ill-defined conditions (1 source)Personal history of urinary (tract) infections; Translations: [PERS HX URINARY TRACT INFECTIONS]Onset: 81-61-3165CtbzupthCfnxs aftercare (1 source)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; Translations: [OTH JAIL CURRENT DRUG THERAPY]Onset: 13-62-5040IjzsdeubXgioz and unspecified benign neoplasm (4 sources)Personal history of colonic polyps; Translations: [PERSONAL HISTORY OF COLONIC POLYPS]Onset: 55-87-8422DxaqjdvjZylyw connective tissue disease (4 sources)Pain in left lower leg; Translations: [PAIN IN LEFT LOWER LEG]Onset: 10-87-4388BrlxsjeqNlpgc gastrointestinal disorders (4 sources)Change in bowel habit; Translations: [CHANGE IN BOWEL HABIT]Onset: 61-14-4130SsrosckpFjfnx inflammatory condition of skin (1 source)Pruritus, unspecified; Translations: [PRURITUS UNSPECIFIED]Onset: 96-64-4215VtzsknknErzju lower respiratory disease (2 sources)Other forms of dyspnea; Translations: [Other forms of dyspnea]Onset: 35-15-3404MrbleiypAhufe screening for suspected conditions (not mental disorders or infectious disease) (4 sources)Encounter for screening mammogram for malignant neoplasm of breast; Translations: [ENC SCR MAMMO MALIG NEOPLASM BREAST]Onset: 30-93-8433Dtlvdlse Other skin disorders (1 source)Localized swelling, mass and lump, left lower limb; Translations: [LOC SWELL MASS LUMP LT LOWER LIMB]Onset: 82-58-4102OhmkllizYjraavtq codes; unclassified (1 source)Family history of malignant neoplasm of digestive organs; Translations: [FAM HX MALIG NEOPLASM DIGESTIV ORGN]Onset: 62-74-0452Vahnexcf Residual codes; unclassified (1 source)Family history of malignant neoplasm of breast; Translations: [FAMILY HX MALIG NEOPLASM OF BREAST]Onset: 06-46-3063RnbdiznaMnablmzr codes; unclassified (1 source)Acquired absence of other specified parts of digestive tract; Translations: [ACQ ABSENCE OTH PART DIGESTV TRACT]Onset: 28-80-1705Ieaixkrh Unclassified (1 source)CONTACT W/AND (SUSP) EXPOS COVID-19; Translations: [CONTACT W/AND (SUSP) EXPOS COVID-19]Onset: 12-02-2021 Results Test NameValueInterpretationReference RangeFacilityOffice Visiton 02-05-2025 Follow-up [id number] Nori Quezada 1940 F Date Provider Department Center 02/05/2025 271-IAN SIMS CARD [facility] Family History Problem Relation Age of Onset No Known Problems Mother No Known Problems Father Family Status - Relation Status Age at Mother Father Level of Service:77099 [place] OFFICE/OUTPATIENT ESTABLISHED MOD MDM [facility] Summaryon 12-07-2024 Ambulatory Visit SummaryAmbulatory Visit [...] Multivitamin oral capsule) potassium chloride (Potassium Chloride (Kwc-Uvhd-Goc M20) 20 mEq oral tablet, extended release) [...] 10:40 AM EST With: Sabina Ruth Where: [address] [address]- Wednesday2025 11:00 AM EDT With: Where: [address] [address]- Medications What How Much When Instructions Unchanged [...] Every day Unchanged potassium chloride (Potassium Chloride (Zwo-Nple-Vot M20) 20 mEq oral tablet, extended release) [...] The liver prabhakar (more content not included)...[facility] Medicine Office/Clinic Noteon 11-35-8957Csxhhg Medicine Office/Clinic NoteFachoate memorial hospital Medicine Office/Clinic Note Chief Complaint Subsequent [...] of clutter to prevent tripping and/or falling. [place] Advance Directives reviewed, are present in chart. [...] bonedecline. DEXA Scan ordered and faxed to [facility] per patient request. 3. Breast cancer screening [...] provided topatient. Mammogram ordered and faxed to [facility] per patient request. Pt has been advised [...] or high acid f (more content not included)...[facility] for RehabilitationComment on above:Result Comment: Electronically Signed By: Sabina Ruth\.br\Date and Time Signed: 12/07/24 14:21 EDT\.br\Electronically Co-Signed By: Renu Yang\.br\Date and Time Co- Signed: 12/07/24 13:21 JPO19ke 72-56-455368TQ for patient letting her know Alfredito reviewed her BP/HR log. He said BP looked better controlled so continue current medications.NormalUnOhioHealth Nelsonville Health CenterOffice Visiton 27-56-9510Xzairt-up [id number] Nori Quezada 1940 F Date Provider Department Center 11/14/2024 04441-MVLEHPALFREDITO FLOWERS Family History Problem Relation Age of Onset No Known Problems Mother No Known Problems Father Family Status - Relation Status Age at Mother Father Level of Service:56927 [place] OFFICE/OUTPATIENT ESTABLISHED MOD MDM 30 [facility]Or[facility] Office/Clinic Noteon 07-17-2024 Orthopedic Office/Clinic NoteChief Complaint [...] Electronically signed by (more content not included)... [facility] 1 or 2 Views Bilateralon 07-17-2024 [...] Is Signed, Electronically Signed in Other Vendor System)[facility] CenterAmbulatory Visit Summaryon 68-55-3278Ytiekpxhwv Visit SummaryAmbulatory Visit Summary NORI QUEZADA :1940 [...] Follow-Up Appointments 2024 11:00 AM EDT Where: [address] [address]- Medications What How Much When Instructions Unchanged [...] for choosing us for your care. [facility] Medicine Office/Clinic Noteon 15-46-0461Nzkurx Medicine Office/Clinic NoteCape Cod And [facility] Medicine Office/Clinic Note HPI Staff Nori is [...] order u/s to confirm. order faxed to [facility]. 2. Non-smoker (Z78.9: Other specified health status) continue not smoking Ordered: losartan, 25 mg = 1 tab(s), Oral, BID, # 180 tab(s), Refills(s) 3, Pharmacy: [facility]/pharmacy #[id number], 167.5, cm, 02/15/24 11:55:00 EDT, [...] virus vaccine, inactivated 02/26/2023 Recorded SARS-CoV-2 (COVID-19) mRNAMUL.[id number] 02/23/2022 Recorded influenza virus vaccine, inactivated 02/10/2022 Recorded SARSCoV2 mRNA(oxxgywpbt-azzt-xnaxrm) vac 11/12/2021 Recorded influenza virus vaccine, inactivated [...] vaccine, inactivated 02/24 (more content not included)...[facility] CenterComment on above:Result Comment: Electronically Signed By: Sabina Ruth\.br\Date and Time Signed: 07/13/24 09:24 EDTOrders Onlyon 61-99-4555Spvatl [id number] Nori Quezada 1940 F Date Provider Department Center 06/27/2024 PRAVEEN SOLO CARD [facility] Family History Problem Relation Age of Onset No Known Problems Mother No Known Problems Father Family Status - Relation Status Age at Mother FatherNormalUniBlanchard Valley Health System [facility] HospitalOffice Visiton 14-63-9807Gwfafq- up [id number] Nori Quezada 1940 F Date Provider Department Center 05/11/2024 IAN KELLY [facility] Family History Problem Relation Age of Onset No Known Problems Mother No Known Problems Father Family Status - Relation Status Age at Mother Father Level of Service:64644 [place] OFFICE/OUTPATIENT ESTABLISHED MOD MDM [facility] HospitalOffice Visiton 90-21-9098Tdkxlw-up visit [id number] Nori Quezada 1940 F Date Provider Department Center 04/10/2024 IAN [facility]LLY [facility] Family History Problem Relation Age of Onset No Known Problems Mother No Known Problems Father Family Status - Relation Status Age at Mother Father Level of Service:94955 [place] OFFICE/OUTPATIENT NEW MODERATE MDM [facility] 53-17-6918PcqrjptwfLohnvlgyp From: Sabina Ruth To: [facility] - Clinical; [...] 09:23:00 EST Subject: RE: [facility]ulatory Rem[facility] HospitalAmbulatory Visit Summaryon 81-77-5572Pqszevknnt Visit SummaryAmbulatory Visit Summary NORI QUEZADA :1940 [...] Follow-Up Appointments 2024 11:00 AM EDT Where: [address] [address]- Medications What How Much When Why Instructions New azithromycin (azithromycin 250 mg Tab) 1 Packets By Mouth As Directed HTN (hypertension) Hypercholesteremia Duration: 5 Days as directed on package labeling Pickup at [facility]/pharmacy #[id number] New methylPREDNISolone (Medrol 4 mg Tab) 1 Packets By Mouth As Directed HTN (hypertension) Hypercholesteremia Duration: 6 Days as directed on package labeling Pickup at [facility]/pharmacy #[id number] Unchanged albuterol Nebulized inhalation (aerosol) [...] TABLET BY MOUTH EVERY DAY Pharmacy Information [facility]/pharmacy #[id number]: [address], [place] [phone] Allergies cefuroxime (Syncope and collapse, Itch) amitriptyline [...] you for choosing us for your care. [facility] Hospital for RehabilitationCHEMISTRYOrdered By: SYSTEM SYSTEM on 90-50-7821Tgxrqinmdkr [Mass/Vol]166 mg/xZVkdizz557 - 200 mg/dLRemisol ChemCholesterol in HDL [Mass/Vol]55 mg/dLInvalid Interpretation CodeRemisol Chem Comment on above:Result Comment: '>= 60 LOW RISK' '<= 40 HIGH RISK'Cholesterol in LDL [Mass/Vol]92 mg/dLNormal<=129mg/dLRemisol ChemCholesterol in VLDL [Mass/Vol]20 mg/dLNormal7 - 40 mg/dLRemisol Chem Triglyceride [Mass/Vol]102 mg/dLNormal<=149mg/dLRemisol ChemTSH Qn1.56 m[IU]/L Normal0.34 - 5.60 mcIU/mLRemisol ChemCape Cod And [facility] Islands [facility] Medicine Office/Clinic Noteon [id number] Medicine Office/Clinic NoteFachoate memorial hospital Medicine Office/Clinic Note Chief Complaint 6m [...] day(s), # 6 tab(s), Refills(s) 0, Pharmacy: [facility]/pharmacy #[id number], 167.5, cm, 02/24/24 10:05:00 EST, Height/Length Dosing, 83.8, kg, 02/24/24 10:05:00 EST, Weight Dosing losartan, 25 mg = 1 tab(s), Oral, BID, # 180 tab(s), Refills(s) 3, Pharmacy: [facility]/pharmacy #[id number], 166, cm, 03/16/23 9:10:00 EST, Height/Length Dosing, 85.6, kg, 03/16/23 9:10:00 EST, Weight Dosing losartan, 25 mg = 1 tab(s), Oral, BID, # 180 tab(s), Refills(s) 3, Pharmacy: [facility]/pharmacy #[id number], 167.5, cm, 02/15/24 11:55:00 EDT, Height/Length Dosing, 84.4, kg, 02/15/24 11:55:00 EDT, Weight Dosing methylPREDNISolone, = 1 packet(s), Oral, As Directed, as directed on package labeling, X 6 day(s), # 21 tab(s), Refills(s) 0, Pharmacy: [facility]/pharmacy #[id number], 167.5, cm, 02/24/24 10:05:00 EST, Height/Length Dosing, 83.8, kg, 02/24/24 10:05:00 EST, Weight Dosing Lipid Panel Thyroid Stimulating Hormone 2. Hypercholesteremia (E78.00: Pure hypercholesterolemia, unspecified) lipid panel in office today Ordered: azithromycin, = 1 packet(s), Oral, As Directed, as directed on package labeling, X 5 day(s), # 6 tab(s), Refills(s) 0, [id number] 167.5, cm, 02/24/24 10:05:00 EST, Height/Length Dosing, 83.8, kg, 02/24/24 10:05:00 EST, Weight Dosing methylPREDNISolone, = 1 packet(s), Oral, As Directed, as directed on package labeling, X 6 day(s), # 21 tab(s), Refills(s) 0, [id number], 167.5, cm, 02/24/24 10:05:00 EST, [...] AFTER, # 6 caplet(s), Refills(s) 1, Pharmacy: [facility]/pharmacy #[id number], 166, cm, 08/24/23 8:56:00 EDT, [...] tab(s), Oral, BID (more content not included)... NormalSalem Regional Medical CenterComment on above:Result Comment: Electronically Signed By: Sabina Ruth\.br\Date and Time Signed: 02/24/24 10:38 ESTLipid Panelon 39-12-9230Wpsyniephgz [Mass/Vol]166 mg/oXNplicr767-964UjvazuSalem Regional Medical CenterComment on above:Performed By: #### [id number] #### [facility] [address] [place], [place] [address]Ppvykbibbax in HDL [Mass/Vol]55 mg/dLInvalid Interpretation CodeSalem Regional Medical CenterComment on above:Result Comment: '>= 60 LOW RISK' '<= 40 HIGH RISK'Performed By: #### [id number] #### [facility] [address] [place], [place] [address]Hvsdheibliw in LDL [Mass/Vol]92 mg/dLNormal<=129Salem Regional Medical CenterComment on above:Performed By: #### [id number] #### [facility] [address] [place], [place] [address]Gswaozcqidf in VLDL [Mass/Vol]20 mg/dLNormal7-40Salem Regional Medical CenterComment on above:Performed By: #### [id number] #### [facility] [address], [place] [address]Unqjgnywhhso [Mass/Vol]102 mg/dLNormal<=149Salem Regional Medical CenterComment on above:Performed By: #### [id number] #### [facility] [address] [place], [place] [address]XQNmd 57-72-1101UQZ Qn1.56 m[IU]/LNormal0.34-5.60Salem Regional Medical CenterComment on above:Performed By: #### [id number] #### [facility] [address] [place], [place] [address] Medicine Office/Clinic Noteon 36-64-8905[facility] Medicine Office/Clinic NoteFachoate memorial hospital Medicine Office/Clinic Note HPI Staff Nori [...] with a non-smoker Ordered: Rapid COVID POC 25897 3. BMI 30.0-30.9,adult (Z68.30: Body mass index [...] at subsequent visits. Ordered: Rapid COVID POC 63209 4. 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 Ordered: Rapid COVID POC 71856 Follow-up No qualifying data available Patient Education Allergic Rhinitis, Adult, Vzrz-kh-Cbjl Problem List/Past Medical History Ongoing Allergic rhinitis, [...] Cap, See Instructions Alisha (more content not included)...[facility] for RehabilitationComment on above:Result Comment: Electronically Signed By: MONICA [...] 10:00 AM EST With: Sabina Ruth Where: [address] [address] 2024 11:00 AM EDT With: Where: [address] [address]- Medications What How Much When [...] you for choosing us for your care. [facility] RehabilitationFachoate memorial hospital Medicine Office/Clinic Noteon 25-04-7219[facility] Medicine Office/Clinic NoteFachoate memorial hospital Medicine Office/Clinic Note HPI Staff Nori is a 83 year old female presenting with 3 week f/u Ech and Chest Xray- [facility] was advised to get further work up from Cardiology with Dr. Bruhl for SOB and fatigue April 2024 is [...] Comments SARS-CoV-2 mRNA (toz (more content not included)...[facility] Hospital for RehabilitationComment on above:Result Comment: Electronically Signed By: Sabina Ruth\.br\Date and Time Signed: 12/24/23 10:45 EDTCHEMISTRYOrdered By: SYSTEM SYSTEM on [id number]-cvksikighdfmmk D3 [Mass/Vol]53.7 ng/pVPpqxwn21.0 - 100.0 ng/mLRemisol ChemAnion gap [Moles/Vol]10 mmol/LNormal6 - 16 mEq/LRemisol Chem Calcium [Mass/Vol]9.4 mg/dLNormal8.9 - 11.1 mg/dLRemisol ChemChloride [Moles/Vol]104 mmol/BAhbadw806 - 111 mmol/LRemisol ChemCO2 [Moles/Vol]30 mmol/L Rfpnkr86 - 31 mmol/LRemisol ChemCreatinine [Mass/Vol]0.7 mg/dLNormal0.5 - 1.3 mg/dLRemisol ItnayYVE99 mL/min/1.73 h1Axryiz>=59mL/min/1.73 h1Skuptmv Chem Glucose [Mass/Vol]79 mg/jYFwuzye17 - 199 mg/dLRemisol ChemIron [Mass/Vol]63 ug/pDOamjkh34 - 153 mcg/dLRemisol ChemPotassium [Moles/Vol]4.3 mmol/LNormal3.5 - 5.3 mmol/LRemisol ChemSodium [Moles/Vol]140 mmol/GVukwne074 - 145 mmol/LRemisol ChemUrea nitrogen [Mass/Vol]19 mg/dLNormal5 - 21 mg/dLRemisol ChemUrea nitrogen/Creatinine [Mass ratio]27 mg/clRnuf99 - 20Remisol ChemCHEMISTRYOrdered By: SYSTEM SYSTEM on 91-23-5880Sshyrjj [Mass/Vol]4.1 g/dLNormal3.3 - 5.0 gm/dL [facility] RemisolAlbumin/Globulin [Mass ratio]1.2 {ratio}Normal1.1 - 2.2[facility] Remisol ALP [Catalytic activity/Vol]46 [iU]/qJdomjz31 - 98 Int._Unit/LFTMC RemisolALT No additional P-5'-P [Catalytic activity/Vol]18 [iU]/dNormal6 - 46 Int._Unit/LFT[facility] RemisolAnion gap [Moles/Vol]11 mmol/LNormal6 - 16 mEq/L[facility] RemisolAST [Catalytic activity/Vol]23 [iU]/dNormal5 - 43 Int._Unit/LFT[facility] RemisolBilirubin [Mass/Vol]0.4 mg/dLNormal0.0 - 1.1 mg/dLFT RemisolCalcium [Mass/Vol]9.9 mg/dL Normal8.9 - 11.1 mg/dLFT RemisolChloride [Moles/Vol]106 mmol/SGgbyvl229 - 111 mmol/LFTMC RemisolCholesterol [Mass/Vol]178 mg/pCSlioei764 - 200 mg/dLFT RemisolCholesterol in HDL [Mass/Vol]59 mg/dLInvalid Interpretation CodeFT RemisolComment on above:Interpretive Data: HDL > or equal to 60 mg/dL: Low cardiovascular risk HDL < 40 mg/dL : High cardiovascular riskCholesterol in LDL [Mass/Vol]107 mg/dL Normal<=129mg/dLFT RemisolCholesterol in VLDL [Mass/Vol]9 mg/dLNormal7 - 40 mg/dLFT RemisolCO2 [Moles/Vol]29 mmol/CXaerxp10 - 31 mmol/LFTMC Remisol Creatinine [Mass/Vol]0.8 mg/dLNormal0.5 - 1.3 mg/dLFTMC RemisolGFR/1.73 sq M.predicted among non-blacks MDRD (S/P/Bld) [Vol rate/Area]74 mL/min/1.73 m2 Normal>=59mL/min/1.73 m2FT Chem SComment on above:Interpretive Data: Chronic kidney disease could be indicated at eGFR's of less than 60 mL/min/1.73m2. Kidney failure is indicated at less than 15 mL/min/1.73m2.Globulin (S) [Mass/Vol]3.3 g/dLNormal1.4 - 4.0 gm/dLFTMC RemisolGlucose [Mass/Vol]90 mg/dL Iuihww98 - 199 mg/dLFTMC RemisolComment on above:Interpretive Data: If this glucose result represents a fasting glucose, interpretation should referto the following reference range: 55-99 mg/dLPotassium [Moles/Vol]4.2 mmol/LNormal3.5 - 5.3 mmol/LFTMC RemisolProtein [Mass/Vol]7.4 g/dLNormal6.0 - 7.8 gm/dLFT RemisolSodium [Moles/Vol]142 mmol/XDrgpje907 - 145 mmol/LFTMC Remisol Triglyceride [Mass/Vol]47 mg/dLNormal<=149mg/dLFT RemisolTSH Qn2.12 m[IU]/L Normal0.34 - 5.60 mcIU/mLFTMC RemisolUrea nitrogen [Mass/Vol]17 mg/dLNormal5 - 21 mg/dLFTMC RemisolUrea nitrogen/Creatinine [Mass ratio]21 mg/fiJsqm28 - 20[facility] RemisolHEMATOLOGYOrdered By: SYSTEM SYSTEM on 89-29-3710Xndnbttet/100 WBC (Bld) 0.5 %Normal0.0 - 2.0 %[facility] HemeAutoSSBasophils/Leukocytes Auto (Bld) [Pure # fraction]0.0 E9/LNormal0.0 - 0.2 E9/LFTMC HemeAutoSSEosinophils/100 WBC (Bld)1.4 %Normal0.0 - 8.0 %[facility] HemeAutoSSEosinophils/Leukocytes Auto (Bld) [Pure # fraction]0.1 E9/LNormal0.0 - 0.5 E9/LFTMC HemeAutoSSLymphocytes/100 WBC (Bld) 33.1 %Gxympx51.0 - 50.0 %[facility] HemeAutoSSLymphocytes/Leukocytes Auto (Bld) [Pure # fraction]2.0 E9/LNormal1.0 - 4.0 E9/LFTMC HemeAutoSSMonocytes/100 WBC (Bld)8.3 %Normal4.0 - 14.0 %[facility] HemeAutoSSMonocytes/Leukocytes Auto (Bld) [Pure # fraction]0.5 E9/LNormal0.2 - 1.0 E9/LFTMC HemeAutoSSNeutrophils/100 WBC (Bld) 56.7 %Wrzyfb39.0 - 75.0 %[facility] HemeAutoSSNeutrophils/Leukocytes Auto (Bld) [Pure # fraction]3.5 E9/LNormal2.0 - 7.5 E9/LFT[facility] HemeAutoSSHEMATOLOGYOrdered By: Carmen Estevez on 08-96-0506Ahsckfvuplu distribution width (RBC) [Ratio]14.5 % High10.9 - 14.2 %[facility] HemeAutoSSHematocrit (Bld) [Volume fraction]38.8 %Normal 34.0 - 46.0 %[facility] HemeAutoSSHemoglobin (Bld) [Mass/Vol]13.1 g/dRZokwgo52.0 - 16.0 gm/dLFTMC HemeAutoSSMCH (RBC) [Entitic mass]29.8 ggIudgaf06.0 - 34.0 pgFTMC HemeAutoSSMCHC (RBC) [Mass/Vol]33.8 g/gYMotsby67.4 - 36.0 gm/dLFTMC HemeAutoSS MCV (RBC) [Entitic vol]88.3 uCYfittv93.0 - 100.0 fLFTMC HemeAutoSSPlatelet mean volume (Bld) [Entitic vol]9.0 fLNormal6.4 - 10.8 fLFTMC HemeAutoSSPlatelets (Bld) [#/Vol]232.0 E9/MEdbibl470.0 - 500.0 E9/LFTMC HemeAutoSSRBC (Bld) [#/Vol] 4.4 E12/LNormal4.3 - 5.9 E12/LFTMC HemeAutoSSWBC corrected for nucl RBC Auto (Bld) [#/Vol]6.2 E9/LNormal4.0 - 11.0 E9/LFCHICKASAW NATION MEDICAL [facility] – [facility] HemeAutoSSMG MAMM SCREEN 3D TOMMY CADon [id number] MAMM SCREEN 3D TOMMY CADPatient: NORI QUEZADA Exam Date: 12/19/2021 : 1940 Gender:F Ordering : DR BRITTANY FREEDMAN . Admission #: [id number] Family : Order #: [id number] CLICK HERE TO VIEW EXAM RADIOLOGY REPORT [...] colon cancer at age 69. LOCATION: [facility] BREAST COMPOSITION: Extremely dense, which lowers [...] by: Bernard Reza MD on 12/19/2021 at 13:46NoMagruder Memorial HospitalCB AUTO DIFFon 02-97-0810ETQF #0.0 103/ulNormal0.0-0.1The [facility] HospitalComment on above:Performed By: #### CBC #### [facility] [address] [address] [address] Kaiser GarcíaBasophils/100 WBC (Bld)0.3 %Normal0.2-2.0[facility] Comment on above:Performed By: #### CBC #### [facility] [address] [place] [address] Dr. Kaiser Gardner #0.1 103/ulNormal0.0-0.7The [facility] HospitalComment on above: Performed By: #### CBC #### [facility] [address] [place] [address] Dr. Kaiser Mooneyosinophils/100 WBC (Bld)1.9 %Normal0.9-7.0[facility] Comment on above:Performed By: #### CBC #### [facility] [address] [place] [address] Dr. Kaiser Mooneyrythrocyte distribution width (RBC) [Ratio]13.9 %Ntjvbx33.0-15.0 The [facility] Hospitalment on above:Performed By: #### CBC #### [facility] [address] [place] [address] Dr. Kaiser GarcíaHematocrit (Bld) [Volume fraction]38.5 %Qadtqe95.0-48.0The [facility] Hospitalment on above:Performed By: #### CBC #### [facility] [address] [place] [address] Dr. Kaiser GarcíaHemoglobin (Bld) [Mass/Vol]12.0 g/eEEbdfkr37.0-16.0The [facility] Hospitalment on above:Performed By: #### CBC #### [facility] [address] [place] [address] Dr. Kaiser Muller #0.03 10e3/ulNormal0.00-0.03The [facility] Hospitalment on above:Performed By: #### CBC #### [facility] [address] [place] [address] Dr. Kaiser Muller %0.4 %Normal0.0-0.5The [facility] Hospitalment on above: Performed By: #### CBC #### [facility] [address] [place] [address] Dr. Kaiser Mayen #2.5 103/ulNormal1.2-3.8The [facility] HospitalComment on above:Performed By: #### CBC #### [facility] [address] [address] [address] Kaiser Madridmphocytes/100 WBC (Bld)35.7 %Sngftl12.5-60.0The [facility] HospitalComment on above:Performed By: #### CBC #### [facility] [address] [address] [address] Kaiser Ivey DIFF REQNONormalThe Albertson HospitalComment on above: Performed By: #### CBC #### [facility] [address] [place] [address] Dr. Kaiser Kerr (RBC) [Entitic mass]28.5 wbKoafyi66.7-34.0The [facility] HospitalComment on above:Performed By: #### CBC #### [facility] [address] [place] [address] Dr. Kaiser Kerr (RBC) [Mass/Vol]31.2 g/hORerizx94.9-35.2The [facility] HospitalComment on above:Performed By: #### CBC #### [facility] [address] [place] [address] Dr. Kaiser Kerr (RBC) [Entitic vol]91.4 bBIrgoke60.0-99.0The [facility] HospitalComment on above:Performed By: #### CBC #### [facility] [address] [place] [address] Dr. Kaiser Gonsalves #0.6 103/ulNormal0.3-0.8The [facility] HospitalComment on above:Performed By: #### CBC #### [facility] [address] [place] [address] Dr. Kaiser Stewartocytes/100 WBC (Bld)8.7 %Normal1.7-12.0[facility] Comment on above:Performed By: #### CBC #### [facility] [address] [place] [address] Dr. Kaiser Sorenson #3.7 103/ulNormal1.4-6.5The [facility] HospitalComment on above:Performed By: #### CBC #### [facility] [address] [address] [address] Kaiser GarcíaNeutrophils/100 WBC (Bld)53.0 %Uadbwt37.0-75.0The [facility] HospitalComment on above:Performed By: #### CBC #### [facility] [address] [address] [address] Kaiser GarcíaPlatelet mean volume (Bld) [Entitic vol]9.4 fLCritically low 9.5-13.5The [facility] HospitalComment on above:Performed By: #### CBC #### [facility] [address] [place] [address] Dr. Kaiser GarcíaPLT244 103/oiLakfco926-823Xqj [facility] HospitalComment on above: Performed By: #### CBC #### [facility] [address] [address] [address] Kaiser GarcíaRBC4.21 106/ulNormal4.20-5.40The [facility] HospitalComment on above:Performed By: #### CBC #### [facility] [address] [address] [address] Kaiser GarcíaWBC6.9 103/ulNormal4.0-11.0The [facility] HospitalComment on above: Performed By: #### CBC #### [facility] [address] [address] [address] Kaiser GarcíaPROJohann 14(COMP METB)on 32-05-7940Grdwwuf [Mass/Vol]3.6 g/dLNormal 3.4-5.0The [facility] HospitalComment on above:Performed By: #### CMP, TSH ####[facility] [address] [address]Dr. Kaiser GarcíaAlbumin/Globulin [Mass ratio]1.1 {ratio}NormalThe [facility] Comment on above:Performed By: #### CMP, TSH ####[facility] [address] StreetB[place]vue, [place] [address]Oz. Yilan ChangALP [Catalytic activity/Vol]51 U/EZuzvee66-960Ftr [facility] HospitalComment on above:Performed By: #### CMP, TSH ####[facility] [address] [place], [place] [address]Dr. Yilan ChangALT [Catalytic activity/Vol]19 U/ACstxym24-48Rpb [facility] HospitalComment on above:Performed By: #### CMP, TSH ####[facility] Cr[address] [place], [place] [address]Dr. Yilan ChangAnion gap [Moles/Vol]11.6 mmol/LNormalThe [facility] HospitalComment on above:Performed By: #### CMP, TSH ####[facility] [address] [place], [place] [address]Dr. Yilan ChangAST [Catalytic activity/Vol]14 U/LCritically qqq27-60 The [facility] HospitalComment on above:Performed By: #### CMP, TSH ####[facility] [address] [place], [place] [address]Dr. Yilan García Bilirubin [Mass/Vol]0.3 mg/dLNormal0.2-1.0The [facility] HospitalComment on above: Performed By: #### CMP, TSH ####[facility] J[address]trjcj[address] [place], [place] [address]Dr. Yilan ChangCalcium [Mass/Vol]9.0 mg/dLNormal 8.5-10.1The [facility] HospitalComment on above:Performed By: #### CMP, TSH ####[facility] [address] [place], [place] [address]Dr. Yilan ChangChloride [Moles/Vol]104 mmol/ASmzkfd83-805Zqy [facility] Comment on above:Performed By: #### CMP, TSH ####[facility] P[address] [place], [place] [address]Dr. Yilan ChangCO2 [Moles/Vol]28.4 mmol/FBvkczk16.0-32.0The [facility] HospitalComment on above: Performed By: #### CMP, TSH ####[facility] [address] [address]Dr. Yilan ChangCreatinine [Mass/Vol]0.73 mg/dLNormal 0.55-1.02The [facility] HospitalComment on above:Performed By: #### CMP, TSH ####[facility] [address] [id number]. Yilan ChangEGFR-AF CITIZEN [place]>60Normal>=60The [facility] HospitalComment on above: Performed By: #### CMP, TSH ####[facility] [address] [id number]. Yilan ChangEGFR-NON AF CITIZEN OF [place]>60Normal>=60The [facility] HospitalComment on above:Performed By: #### CMP, TSH ####[facility] [address] [place], [place] [address]Dr. Yilan García Globulin (S) [Mass/Vol]3.4 g/dLNormalThe [facility] HospitalComment on above: Performed By: #### CMP, TSH ####[facility] Gxlantov[address] [place], [place] [address]Dr. Yilan ChangGlucose [Mass/Vol]73 mg/dLCritically zjr59-197Jyg [facility] HospitalComment on above:Performed By: #### CMP, TSH ####[facility] [address] [place], [place] [address]Dr. Yilan ChangPotassium [Moles/Vol]4.0 mmol/LNormal3.5-5.1The [facility] Comment on above:Performed By: #### CMP, TSH ####[facility] Qp[address]zzuk[address] [place], [place] [address]Dr. Yilan ChangProtein [Mass/Vol]7.0 g/dLNormal6.4-8.2The [facility] HospitalComment on above:Performed By: #### CMP, TSH ####[facility] [address] [place], [place] [address]Dr. Yilan ChangSodium [Moles/Vol]140 mmol/NLvfixd598-855Rxo [facility] HospitalComment on above:Performed By: #### CMP, TSH ####[facility] [address] [address]Dr. Kaiser ChangUrea nitrogen [Mass/Vol]23.0 mg/dLCritically high7.0-18.0The [facility] HospitalComment on above:Performed By: #### CMP, TSH ####[facility] [address] [address]Dr. Kaiser ChangUrea nitrogen/Creatinine [Mass ratio] 31.5 mg/mgNoMagruder Memorial HospitalComment on above:Performed By: #### CMP, TSH ####[facility] [address] [address]Dr. Kaiser GarcíaTSHon 89-57-0919SLT4.112 uIU/mLNormal0.358-3.740[facility] Comment on above:Performed By: #### CMP, TSH ####[facility] [address] [address]Dr. Kaiser RickyXR CHEST 1 Von 44-05-1365OU CHEST 1 VEXAM: XR CHEST 1 V [...] Electronically authenticated by: Mesfin LIZ Date: 2021-12-03 23:19[facility] AUTO DIFFon 46-17-6007VKDW #0.0 103/ulNormal0.0-0.1The [facility] HospitalComment on above:Performed By: #### CBC #### [facility] [address] [address] [address] Kaiser GarcíaBasophils/100 WBC (Bld)0.3 %Normal0.2-2.0[facility] Comment on above:Performed By: #### CBC #### [facility] [address] [place] [address] Dr. Kaiser Gardner #0.1 103/ulNormal0.0-0.7The [facility] HospitalComment on above: Performed By: #### CBC #### [facility] [address] [place] [address] Dr. Kaiser Mooneyosinophils/100 WBC (Bld)1.0 %Normal0.9-7.0The [facility] Comment on above:Performed By: #### CBC #### [facility] [address] [place] [address] Dr. Kaiser Mooneyrythrocyte distribution width (RBC) [Ratio]13.8 %Ngilgd78.0-15.0 The [facility] HospitalComment on above:Performed By: #### CBC #### [facility] [address] [place] [address] Dr. Kaiser GarcíaHematocrit (Bld) [Volume fraction]38.5 %Kloyqn09.0-48.0The [facility] HospitalComment on above:Performed By: #### CBC #### [facility] [address] [place] [address] Dr. Kaiser GarcíaHemoglobin (Bld) [Mass/Vol]12.4 g/qBCpzvtg21.0-16.0The [facility] HospitalComment on above:Performed By: #### CBC #### [facility] [address] [place] [address] Dr. Kaiser Muller #0.01 10e3/ulNormal0.00-0.03The [facility]ment on above:Performed By: #### CBC #### [facility] [address] [place] [address] Dr. Kaiser Muller %0.2 %Normal0.0-0.5The [facility] HospitalComment on above: Performed By: #### CBC #### [facility] [address] [place] [address] Dr. Kaiser MadridMPH #2.0 103/ulNormal1.2-3.8The [facility] HospitalComment on above:Performed By: #### CBC #### [facility] [address] [place] [address] Dr. Kaiser GarcíaLymphocytes/100 WBC (Bld)32.4 %Fbpbtp82.5-60.0The [facility] Hospitalment on above:Performed By: #### CBC #### [facility] [address] [place] [address] Dr. Kaiser GarciaUAL DIFF REQNONormalThe [facility] HospitalComment on above: Performed By: #### CBC #### [facility] [address] [place] [address] Dr. Kaiser Kerr (RBC) [Entitic mass]28.8 hdTdgclh21.7-34.0The [facility] HospitalComment on above:Performed By: #### CBC #### [facility] [address] [place] [address] Dr. Kaiser Kerr (RBC) [Mass/Vol]32.2 g/oLPcuxfy25.9-35.2The [facility] HospitalComment on above:Performed By: #### CBC #### [facility] [address] [place] [address] Dr. Kaiser Kerr (RBC) [Entitic vol]89.3 pKUzeycw33.0-99.0The [facility] HospitalComment on above:Performed By: #### CBC #### [facility] [address] [place] [address] Dr. Kaiser Gonsalves #0.3 103/ulNormal0.3-0.8The [facility] Hospitalment on above:Performed By: #### CBC #### [facility] [address] [place] [address] Dr. Kaiser Stewartocytes/100 WBC (Bld)4.2 %Normal1.7-12.0The [facility] Comment on above:Performed By: #### CBC #### [facility] [address] [place] [address] Dr. Kaiser Sorenson #3.9 103/ulNormal1.4-6.5The [facility] HospitalComment on above:Performed By: #### CBC #### [facility] [address] [address] [address] Kaiser GarcíaNeutrophils/100 WBC (Bld)61.9 %Mreikk17.0-75.0The [facility] HospitalComment on above:Performed By: #### CBC #### [facility] [address] [place] [address] Dr. Kaiser GarcíaPlatelet mean volume (Bld) [Entitic vol]10.1 fLNormal9.5-13.5The [facility] HospitalComment on above:Performed By: #### CBC #### [facility] [address] [place] [address] Dr. Kaiser GarcíaPLT175 103/hsKtgmtl033-253Syf [facility] HospitalComment on above: Performed By: #### CBC #### [facility] [address] [place] [address] Dr. Kaiser GarcíaRBC4.31 106/ulNormal4.20-5.40The [facility] HospitalComment on above:Performed By: #### CBC #### [facility] [address] [place] [address] Dr. Kaiser GarcíaWBC6.2 103/ulNormal4.0-11.0The [facility] HospitalCombronson [facility] on above: Performed By: #### CBC #### [facility] [address] [place] [address] Dr. Kaiser GarcíaPROF 14(COMP METB)on 55-48-1967Vtnypxp [Mass/Vol]3.6 g/dLNormal 3.4-5.0The [facility] on above:Performed By: #### HSTROPN, CMP #### [facility] [address] [place] [address] Dr. Kaiser GarcíaAlbumin/Globulin [Mass ratio]1.0 {ratio}NormalThe [facility] on above:Performed By: #### HSTROPN, CMP #### [facility] [address] [place] [address] Dr. Kaiser ColungaP [Catalytic activity/Vol]54 U/NDeuiyt37-625Udq [facility] HospitalComment on above:Performed By: #### HSTROPN, CMP #### [facility] [address] [place] [address] Dr. Kaiser Caceres [Catalytic activity/Vol]17 U/OTlsaqe26-24MfjUpper Valley Medical CenterComment on above:Performed By: #### HSTROPN, CMP #### [facility] [address] [place] [address] Dr. Kaiser Morrison gap [Moles/Vol]15.4 mmol/LNormalUpper Valley Medical Center Comment on above:Performed By: #### HSTROPN, CMP #### [facility] [address] [place] [address] Dr. Kaiser GarcíaAST [Catalytic activity/Vol]21 U/GGtpoot03-63UkrUpper Valley Medical CenterComment on above:Performed By: #### HSTROPN, CMP #### [facility] [address] [place] [address] Dr. Kaiser GarcíaBilirubin [Mass/Vol]0.4 mg/dLNormal0.2-1.0[facility] Comment on above:Performed By: #### HSTROPN, CMP #### [facility] [address] [place] [address] Dr. Kaiser GarcíaCalcium [Mass/Vol]9.1 mg/dLNormal8.5-10.1[facility] Comment on above:Performed By: #### HSTROPN, CMP #### [facility] [address] [place] [address] Dr. Kaiser GarcíaChloride [Moles/Vol]101 mmol/XNmbsnw07-047RbxUpper Valley Medical Center Comment on above:Performed By: #### HSTROPN, CMP #### [facility] [address] [place] [address] Dr. Kaiser GarcíaCO2 [Moles/Vol]22.4 mmol/HXstxbw43.0-32.0[facility] Comment on above:Performed By: #### HSTROPN, CMP #### [facility] [address] [address] [address] Kaiser GarcíaCreatinine [Mass/Vol]1.19 mg/dLCritically high0.55-1.02The [facility] HospitalComment on above:Performed By: #### HSTROPN, CMP #### [facility] [address] [address] [address] Saab ChangEGFR-AF KGNWPOYD67 mL/min/1.16y1Bdahuklavw low>=60The [facility] HospitalComment on above:Performed By: #### HSTROPN, CMP #### [facility] [address] [address] [address] Kaiser MooneyGFR-NON AF FFARYUUB25 mL/min/1.46h6Wglygwryuf low>=60The [facility] HospitalComment on above:Performed By: #### HSTROPN, CMP #### [facility] [address] [place] [address] Dr. Kaiser GarcíaGlobulin (S) [Mass/Vol]3.5 g/dLNormalThe [facility] HospitalComment on above:Performed By: #### HSTROPN, CMP #### [facility] [address] [address] [address] Kaiser GarcíaGlucose [Mass/Vol]220 mg/dLCritically fwou88-393C[facility] German Hospitalment on above:Performed By: #### HSTROPN, CMP #### [facility] [address] [address] [address] Kasier GarcíaPotassium [Moles/Vol]3.8 mmol/LNormal3.5-5.1The [facility] Comment on above:Performed By: #### HSTROPN, CMP #### [facility] [address] [address] [address] Kaiser GarcíaProtein [Mass/Vol]7.1 g/dLNormal6.4-8.2The [facility] Comment on above:Performed By: #### HSTROPN, CMP #### [facility] [address] [address] [address] Kaiser GarcíaSodium [Moles/Vol]135 mmol/LCritically pgj861-687Wmc [facility] HospitalComment on above:Performed By: #### TREVORTROPN, CMP #### [facility] [address] [place] [address] Dr. Kaiser Diehl nitrogen [Mass/Vol]22.0 mg/dLCritically high7.0-18.0The [facility] HospitalComment on above:Performed By: #### SAMANTHAN, CMP #### [facility] [address] [address] [address] Kaiser Diehl nitrogen/Creatinine [Mass ratio]18.5 mg/mgNormalThe [facility] HospitalComment on above:Performed By: #### HANNY, CMP #### [facility] [address] [place] [address] Dr. Kaiser Barnett, HIGH SENSITIVITYon 31-92-4919PXESYC4.4 pg/mLNormal 4.0-51.3The [facility] HospitalComment on above:Result Comment: CUT-OFF POINTS HAVE BEEN ESTABLISHED BASED ON THE FOURTH UNIVERSAL DEFINITIONS OF MYOCARDIAL INFARCTION. THE UPPER REFERENCE LIMIT (URL) OF TROPONIN, DEFINED THE 99TH PERCENTILE OF cTnI DISTRIBUTION IN A REFERENCE POPULATION, HAS BEEN CONFIRMED THE DECISION THRESHOLD FOR [place] DIAGNOSIS.Performed By: #### HANNY, CMP #### [facility] [address] [place] [address] Dr. Kaiser GarcíaCovid-19 PCR ([facility]VDDANA-[facility])on 78-57-3479STAK-CoV-2 (COVID-19) RNA DANIEL+probe Ql (Unsp spec)Not detectedNormalNOT DETECTEDThe [facility] Comment on above:Result Comment: This test is not yet approved or cleared by the [place] FDA. When there are no FDA-approved or cleared tests available, and other criteria are met, FDA can make tests available under an emergency access mechanism called an Emergency Use Authorization (EUA). The EUA for this test is supported by the [place] of Health and Human Service's (HHS's) declaration [...] consistent with SARS-CoV-2.Performed By: #### CVDTBH #### [facility] [address] [place] [address] Dr. Kaiser Guaman ISABELLA DOP LEG LTon 10-18-9164SZ ISABELLA DOP LEG LTEXAMINATION: [place] ISABELLA DOP [...] Electronically authenticated by: BERNARD REZA Date: 2021-10-17 16:45[facility] Encounters Encounter DateEncounter TypeCare ProviderFacilityStart: 56-22-8405ppklhdiizrBhwt L SchwabFacility:[facility] CenterueStart: 70-89-5147lpadsfuoxlSysc L Linda Facility:[facility] CenterueStart: 02-08-2025 End: 62-32-5504ccjxbaoscqYNCZMZOFV H SMITHNot AvailableStart: 02-08-2025 End: 90-50-1587Nrqial Severo Acuña DPM Work Phone: [facility] [place] PodiatryStart: 02-08-2025 End: 89-06-2703Gplgqr Severo Acuña DPM Work Phone: [facility] [place] PodiatryStart: 02-05-2025 End: 90-54-7960zzppoivoalQJPQ ELTAMercy Health St. Vincent Medical Centertart: 12-07-2024 End: 83-50-0410qkntcbpaqqIdsx L SchwabFacility:FT BellevueStart: 11-27-2024 End: 29-47-1774Bazxok Severo Acuña DPM Work Phone: [facility] [place] PodiatryStart: 11-27-2024 End: 33-54-8322Qgrebm flowsHector Acuña DPM Work Phone: noms [place] PodiatryStart: 11-27-2024 End: 03-14-9415Upxoiua encounter procedureCapo Acuña DPM Work Phone: noms [place] PodiatryComment on above:Onychomycosis (Primary Dx); Corns and callosities; Other specified peripheral vascular diseases; Pain in both feetStart: 11-27-2024 End: 68-24-8214jzqwwvxbfsMLJFOYMTR H SMITHNot AvailableStart: 11-14-2024 End: 19-72-6219anqvererqlONIVSelect Medical Specialty Hospital - Columbus Southtart: 09-21-2024 End: 03-91-1283Guvigs Severo Acuña DPM Work Phone: noms [facility] PODIATRYStart: 09-21-2024 End: 46-63-9954Ejvbqi Severo Acuña DPM Work Phone: noms SWS PODIATRYStart: 09-21-2024 End: 25-37-4383Mxigmwh encounter procedureCapo Acuña DPM Work Phone: noms SWS PODIATRYComment on above:Onychomycosis (Primary Dx); Corns and callosities; Other specified peripheral vascular diseases; Pain in both feetStart: 09-21-2024 End: 83-52-6142adbctqpifxJVWFVLOND H SMITHNot AvailableStart: 07-17-2024 End: 18-47-4351vrqxalfmioVhah Lynn Schwab RETORT LOAD EXPEDITER-CNPFacility:Ortho/Sport MedStart: 07-13-2024 End: 32-37-6803ktvgbfspscNqap L SchwabFacility:FT FM BellevueStart: 07-06-2024 End: 65-14-2544Ztktup outpatient visit 15 minutesCaethan Acuña DPM Work Phone: noms [facility] PODIATRYComment on above:Onychomycosis (Primary Dx); Corns and callosities; Other specified peripheral vascular diseases (CMS/HCC); Pain in both feet; Peripheral vascular disease (CMS/HCC); Plantar fasciitisStart: 07-06-2024 End: 01-52-8750noovdwnncrFXJLTLCXM H SMITHNot AvailableStart: 05-11-2024 End: 15-97-8472ajmohatqytWEKOBarnesville Hospitaltart: 05-03-2024 End: 24-46-5139Falbdj flowsheetCapo Acuña DPM Work Phone: noms [facility] PODIATRYStart: 05-03-2024 End: 81-22-9719Eemipq flowsHector Acuña DPM Work Phone: noms [facility] PODIATRYStart: 05-03-2024 End: 79-73-6476Xnfhxdw encounter procedureCapo Acuña DPM Work Phone: noms [facility] PODIATRYComment on above:Onychomycosis (Primary Dx); Corns and callosities; Other specified peripheral vascular diseases (CMS/HCC)Start: 05-03-2024 End: 05-99-4200msewvdlxkxXOOZTNVLW H SMITHNot AvailableStart: 04-10-2024 End: 28-48-5584uyyzkvoovqUMFEBarnesville Hospitaltart: 02-24-2024 End: 86-86-7250Wnu Karan Mckeon [facility] Start: 02-24-2024 End: 63-86-5721vpdesutyhnPjca L SchwabFacility:FT BellevueStart: 02-23-2024 End: 58-99-2677Kteggo Severo Acuña DPM Work Phone: noms [facility] PODIATRYStart: 02-23-2024 End: 36-01-3297Kncble Severo Acuña DPM Work Phone: noms [facility] PODIATRYStart: 02-23-2024 End: 67-71-1089Tgvfbrw encounter procedureCapo Acuña DPM Work Phone: noms [facility] PODIATRYComment on above:Onychomycosis (Primary Dx); Corns and callosities; Other specified peripheral vascular diseases (CMS/HCC); Pain in both feetStart: 02-23-2024 End: 88-81-5876bzcijdorzwSLBZPNMNA H SMITHNot AvailableStart: 02-15-2024 End: 11-98-0366feyygdasziTFKPVZ A LEHMANNFacility:FT FM BellevueStart: 12-24-2023 End: 58-09-4054syyqwjvtnbJasm L SchwabFacility:FT BellevueStart: 12-22-2023 End: 33-99-2845Sejhfi Severo Acuña DPM Work Phone: noms [facility] PODIATRYStart: 12-22-2023 End: 04-57-4605Xhzmko flowsHector Acuña DPM Work Phone: noms [facility] PODIATRYStart: 12-22-2023 End: 36-02-8475Cpyvsec encounter procedureCapo Acuña DPM Work Phone: noms [facility] PODIATRYComment on above:Onychomycosis (Primary Dx); Pain in both feet; Corns and callosities; Other specified peripheral vascular diseases (CMS/HCC)Start: 08-24-2023 End: 85-77-8230Xbk Drop offJodi L Linda [facility] Start: 02-02-2023 End: 96-90-1696Rji Drop offJodi L Linda [facility] Start: 06-05-2022 End: 68-69-2696ttceerdiqtBA KIM E KNIGHT .Facility:Q0Mmece: 12-24-2021 End: 03-72-9623eudixsxbgaFA KIM E KNIGHT .Facility:C8Lpsmv: 12-19-2021 End: 88-65-8675zyzmqiayfvTX KIM E KNIGHT .Facility:Y9Jojbd: 12-12-2021 End: 68-21-4604dwajyrphklPU KIM E KNIGHT .Facility:O7Xtofa: 12-03-2021 End: 49-38-5855rbacnaspxpIE MARK R SMITHFacility:Y9Iftfr: 12-02-2021 End: 01-14-3464mrqznywwetLC KIM E KNIGHT .Facility:E9Lkrqf: 10-17-2021 End: 57-34-4464vusukgzcbhYK KIM E KNIGHT .Facility:L6Lcmor: 09-24-2021 End: 41-07-2119kmmrwvrdzoPO MICHAEL NILL .Facility:P5Cigso: 31-58-9741wrszfouvqr DR LAMAR SEXTON .Facility:K6Hflqi: 08-20-2021 End: 87-23-2391yneybrredqUM KIM E KNIGHT .Facility:H1 Procedures DateProcedureProcedure DetailPerforming ClinicianStart: 49-19-9182Fpshwhvl extraction and insertion of intraocular lensJodi Linda Start: 93-90-8017Gajfewfu extraction and insertion of intraocular lensJodi Linda Start: 35-62-3409QdgakuzrowfLwul Linda Start: 22-75-7167VkzmripikpwYtsq Linda Start: 80-13-6372XuxwoayknifAooo Linda AppendectomyJodi Linda Arthroplasty of kneeJodi Linda Comment on above:leftCervical polypectomyJodi Linda CholecystectomyJodi Linda CystoscopyJodi Linda Dilation of urethraJodi Linda Plan of Treatment DateCare ActivityDetailAuthorStart: 02-08-2025 End: 70-98-7114Qnfndym encounter botjkupcd64/23/2025 3:45 PM EDT Procedure [facility] [address] [place] [address] Capo Acuña, DPM [address] [place] [address] ArrivedNOMS Jamison PodiatryComment on above:ArrivedStart: 85-32-3607Tfcxbydtx vaccinationInfluenza Vaccine (#1)[facility] HealthcareStart: 11-27-2024 End: 43-53-6525Zqnvbla encounter mamavdxoo23/11/2025 10:15 AM EDT Procedure [facility] [place] [facility] [address] [place], [id number] Capo Acuña, DPM [address] [place] [address] ArrivedNOMS Jamison PodiatryComment on above:ArrivedStart: 11-15-2024 End: 59-41-3722Beqzmln encounter ibbossmkj04/30/2025 8:15 AM EDT Procedure Visit [facility] [address] [place] [address] Capo Acuña, DPM [address] [place] [address] [facility]S [facility] PODIATRYStart: 09-21-2024 End: 39-87-3520Qwaiore encounter frahclrup07/05/2025 9:30 AM EDT Procedure Visit [facility] [address] [place] [address] Capo Acuña, DPM [address] [place] [address] ArrivedNOMS [facility] PODIATRYComment on above:ArrivedStart: 09-12-2024 End: 01-26-4659Ntkrguc encounter lufwcrujp92/27/2025 9:15 AM EDT Procedure Visit [facility] [address] [place] [address] Capo Acuña, DPM [address] [place] [address] [facility]S [facility] PODIATRYStart: 09-06-2024 End: 84-39-9682Sxilkxg encounter xhgkqgujx87/21/2025 10:15 AM EDT Procedure Visit [facility] [address] [place] [address] Capo Acuña, DPM [address] [place] [address] [facility]S [facility] PODIATRYStart: 07-06-2024 End: 55-92-8950Clznztd encounter ejizluqyx40/20/2025 8:00 AM EDT Procedure Visit [facility] [address] [place] [address] Capo Acuña, DPM [address] [place] [address] [facility]S [facility]IATRYStart: 07-03-2024 End: 51-78-7478Kkswsnw encounter qojixcynd76/17/2025 10:15 AM EDT Procedure Visit [facility] [address] [place] [address] Capo Acuña, DPM [address] [place] [address] [facility]ATRYStart: 05-03-2024 End: 42-36-0180Kbyijwy encounter ekcdxhssp58/15/2025 9:00 AM EST Procedure Visit [facility] [address] [place] [address] Capo Acuña, DPM [address] [place] [address] ArrivedNOMS [facility] PODIATRYComment on above:ArrivedStart: 04-27-2024 End: 60-07-8743Eozmkwj encounter syokhelof78/09/2025 10:45 AM EST Procedure Visit [facility] [address] [place] [address] Capo Acuña, DPM [address] [place] [address] [facility]ODIATRYStart: 02-23-2024 End: 27-85-0537Xbebnmi encounter procedureNOMS [facility] PODIATRYComment on above: ArrivedStart: 12-22-2023 End: 30-10-1322Smjxine encounter rtgoqiyin89/04/2024 10:00 AM EDT Procedure Visit [facility] [address] [place] [address] Capo Acuña, DPM [address] [place] [address] ArrivedNOMS [facility]IATRYComment on above: ArrivedStart: 25-00-1181Vqbvjazkf vaccinationInfluenza Vaccine (#1)[facility] Immunizations Immunization DateImmunizationNotesCare JcknedawMwhhanns89-40-6030rtxizrmns virus vaccine, unspecified formulationCapo Acuña DPM Work Phone: [facility] CenterCgslpzszjc19-51-1448ZITJ-JvS-0 mRNA (tozinameran 5y-11y) vaccineJodi Linda 445-5375Esdlfd-DfkdaCoshocton Regional Medical Center Comment on above:Result Comment: covid 19 wwgw-vixphum22-52cadhoyy74-71-4625vndeawwbb virus vaccine, unspecified formulationCapo Acuña DPM Work Phone: [phone]-LzhfmCoshocton Regional Medical Center 43-82-4412NFJZ-CoV-2 (COVID-19) mRNAMUL.ORD!y34215Xueb Linda 383-7499Ivpydt-RvszmBluffton Hospital10-25-2022 influenza virus vaccine, unspecified formulationJodi Linda 177-5035Jhbfyt-AtaexBluffton Hospital07-27-2022 SARS-CoV-2 mRNA (nuwutxfshsh-tegj-nqqxspb) vaccineJodi Linda 707-9394Gdfyoi-PzjbrBluffton Hospital10-07-2021 SARS-CoV-2 (COVID-19) mRNA BNT-162b2 vaxJodi Linda 618-9445Xagoxr-QksedBluffton HospitalComment on above: Result Comment: 2022-11-25: LHQ9537-07-8319QWRP-BdE-6 (COVID-19) mRNA BNT-162b2 vaxJodi Linda [phone]-LdqgaFort Hamilton HospitalueComment on above: Result Comment: 2022-11-25: VRM8127-93-4689VVMK-WnP-4 (COVID-19) mRNA BNT-162b2 vaxJodi Linda 164-4098Czozud-ZbluuBluffton HospitalComment on above: Result Comment: 2022-11-25: HGC5633-24-8327zrlcvupqz virus vaccine, unspecified formulationJodi Linda 506-4892Psmzdz-FypnkBluffton Hospital01-01-2020 pneumococcal conjugate vaccine, 13 valentJodi Linda [phone]-BihfgBluffton Hospital11-07-2019 influenza virus vaccine, unspecified formulationJodi Linda 487-6622Tcmodk-XmszqBluffton Hospital02-06-2019 pneumococcal polysaccharide vaccine, 23 valentJodi Linda [phone]-FxyvhBluffton Hospital10-30-2018 influenza virus vaccine, unspecified formulationJodi Linda 559-0931Bkxzpw-WenzuBluffton Hospital11-08-2017 influenza virus vaccine, unspecified formulationJodi Linda [phone]-QsoewBluffton Hospital11-18-2016 pneumococcal conjugate vaccine, 13 valentJodi Linda 431-5940Eoevlv-PdicmFort Hamilton Hospitalue11-03-2016 influenza virus vaccine, unspecified formulationJodi Linda 398-6314Buchpm-RzmewBluffton Hospital11-04-2014 influenza virus vaccine, unspecified formulationJodi Linda 096-8299Qgkquu-VmzxrBluffton Hospital11-06-2013 influenza virus vaccine, unspecified formulationJodi Linda 210-2744Vvgryr-UpxzsBluffton Hospital11-18-2010 influenza virus vaccine, unspecified formulationJodi Linda 148-7154Kmgeri-IoohzBluffton Hospital10-20-2009 influenza, wholeJodi Linda 299-6269Pejkxq-JexbwBluffton HospitalNEGATED: Highlighted row has not occurred!95-80-7699vyotutvnd virus vaccine, unspecified formulationJodi Linda [facility] [place] Payers DatePayer CategoryPayerPolicy [id number] Health InsuranceT[facility] [id number] [id number] 2008Medicare [id number] [id number] 2.840.1.226347.3.579.2.31091-81-5345Fszwkgc3453450 2.840.1.318388.3.579.2.5[id number] 2.840.1.379944.3.579.[id number] 2.840.1.042115.3.579.2.63743-88-5305Wetdiky5532569 2.840.1.221566.3.579.2.67736-61-4171Uzuaafm5165626 2.840.1.725486.3.579.2.97633-61-3200Bgeokln4957517 2.16840.1.462443.3.579.2.78330-21-0891Rdwthik5242152 2.16840.1.303629.3.579.2.94742-03-2779Qyyrvun2654870 2.16.840.1.656110.3.579.2.08077-84-8283Wipdjao7471460 2.16.840.1.960805.3.579.[id number] 2.16.840.1.421001.3.579.2.06858-43-5917Aougusq252687055 2.16.840.1.722640.3.579.2.48054-82-3680Oyiggvg561880011 2.16.840.1.266594.3.579.2.64459-77-5331Xrkswtd25427129 2.16.840.1.152862.3.579.2.01770-00-0336Jwehizp70590940 2.16.840.1.189183.3.579.2.27044-46-9659Pawvpvl24470059 2.16.840.1.443468.3.579.2.66068-13-4166Kpfijru01968387 2.16.840.1.842445.3.579.2.2[id number] 2.16.840.1.536895.3.579.2.86212-65-1387Tutvwzc78710965 2.16.840.1.104800.3.579.2.44490-61-5261Ngwryzw45034009 2.16.840.1.232725.3.579.2.20124-93-8192Bcpevxq03987577 2.16.840.1.556848.3.579.2.27574-07-8983Nzxfdzn11500862 2.16.840.1.507416.3.579.2.022114-89-5852Rqsqhda37281937 2.16.840.1.373016.3.579.2.377846-42-9415Zwnxsag97626988 2.16.840.1.469586.3.579.2.801374-76-9918Jydfzuq4372384 2.16.840.1.448013.3.579.2.263475-06-6969Kteqwta2405580 2.16.840.1.291903.3.579.2.870588-92-6190Zrcwcvw3969543 2.16.840.1.704697.3.579.2.1259 Social History DateTypeDetailFacilityStart: 11-03-2022 End: 81-28-0549Kzzvzbe smoking statusNever smoked tobacco (finding)[facility] BellevueComment on above:neverStart: 92-31-2723Sfrckwe smoking statusNeverFort Hamilton HospitalueComment on above:neverStart: 12-22-2023 End: 29-07-2876Vse Assigned At BirthFeSelect Medical Specialty Hospital - Trumbulltart: 39-32-5802Wpeoafl use and exposureSmokeless tobacco non-userNOMS Healthcare Start: 12-22-2023 End: 00-65-6118Yvrupcoku beverage intakeLifetime non-drinker (finding)[facility] HealthcareStart: 12-22-2023 End: 35-73-0169Ibzeysv of Social functionNOMS HealthcareStart: 40-87-9259Rwbfvxq Commentcaffeine intake: 2-3 cups per day coffee,chocolateNOMS HealthcareStart: 90-86-2733Sqk assigned at birthNot on [facility] Medical Equipment Procedure CodeEquipment CodeEquipment Original TextEquipment IdentifierDates CATARACT EXTRACTION W/ INTRAOCULAR LENS Fredy Moseley DO 04/30/20 Non Biological Eye L{01}[id number] FDAStart: 83-17-7634GOFSVGBD EXTRACTION W/ INTRAOCULAR LENS Fredy Moseley DO 05/14/20 Non Biological Eye R {01}[id number] FDAStart: 05-14-2020 Clinical Notes 08-20-2021 to 02-05-2025 Note Date & HigzOwkkMfpzolgd13-93-2716 [facility] Chief Complaint: Patient [...] atrium. Stress test 04/28 (more content not included)...[facility]08-21-2025 NotePatient Education Cardiovascular Managing Your Hypertension Hypertension, [...] changes are not enough (more content not included)...[facility]08-11-2025 History of Present illness Narrative* Capo Acuña DPM - 11/27/2024 10:15 AM EDT [...] over the callous site. documented in this encounterCrossroads Regional Medical CenterOeobbakpmk40-45-2556 NotePatient is here today for a 6 month follow up. Patient states she feels the same as always, lacking in energy. Patient states the SOB is better. Patient denies chest pain, leg swelling, dizziness/lighted ness, and palpitations. Patient would like the results of her labs done in June.[facility]07-29-2025 NoteSUBJECTIVE Reason for Visit: Nori Quezada is [...] ---> increase to 50 (more content not included)...[facility]06-05-2025 History of Present illness Narrative* Capo Acuña DPM - 09/21/2024 9:30 AM EDT Images from [...] over the callous site. documented in this encounterCrossroads Regional Medical [id number] History of Present illness Narrative* Capo Acuña [...] FO, therapy if needed. documented in this encounterCrossroads Regional Medical [id number] [facility] Chief Complaint: [...] has no current ca (more content not included)...[facility]01-15-2025 History of Present illness Narrative* Capo Acuña, GARFIELD - 05/03/2024 9:00 AM EST Images from [...] over the callous site. documented in this encounterCrossroads Regional Medical [id number] NoteDAY[facility] Note Chief Complaint: New [...] after testing. Ian Sims MD, MPH, FACC, [facility], [facility] Interventional Cardiology Pager Email: [email or web address] History of Present illness Narrative* Capo Acuña, DPM - 02/23/2024 9:15 AM EST Images [...] over the callous site. documented in this encounterCrossroads Regional Medical [id number] NotePatient Education Immunology Allergic Rhinitis, Adult Allergic [...] and dust often. General instructions ??? Take gzkb-dby-wxvuavs and prescription medicines only as told by your doctor. ??? Drink enough fluid to keep your pee pale yellow. Where to find more information ??? [place] [employer]: aaaai.org [...] provider. Document Revised: 12/14/2022 Document Reviewed: 12/14/2022 [employer] Patient Education ? 2023 [email or web address] 12-22-2023 History of Present illness Narrative* Capo [...] over the callous site. documented in this encounterCrossroads Regional Medical [id number] NoteOPERATIVE NOTE OPERATION DATE: 09/24/2021 PREOPERATIVE DIAGNOSIS: [...] the pathology report. CC: Brittany Freedman M.D. [facility] Signed and Approved by: DR LAMAR SEXTON . 09/25/2021 12:58:00[facility]05-04-2022 NoteOPERATIVE NOTE OPERATION DATE: 08/20/2021 PREOPERATIVE DIAGNOSIS: [...] after different prep. CC: Brittany Freedman M.D. [facility] Signed and Approved by: DR LAMAR SEXTON . 08/21/2021 07:27:00[facility] Future Appointments Appointment Date:03/16/2023 09:00:00 AM Scheduled Provider[facility] Appointment Date:12/03/2023 02:00:00 PM Scheduled Provider: Location:[facility] Appointment Type: Medicare Wellness [facility] Future Appointments Appointment Date:11/25/2023 01:00:00 PM Scheduled Provider: Location:[facility] Appointment Type: Medicare Wellness Subsequent Appointment Date:02/24/2024 10:00:00 AM Scheduled Provider:Sabina Ruth [facility] Future App[facility]ments Appointment Date:12/07/2024 11:00:00 AM Scheduled Provider: Location:[facility] Appointment Type: Medicare Wellness Subsequent [facility] Evaluation note* Diagnosis Onychomycosis- Primary Dermatophytosis of [...] Narrative No data available for this section [facility] No data available for this section [facility] No data available for this section [facility] Summary Purpose Family History No Family [...] section and content) DATE CREATED AUTHOR 07/25/2022 [facility] DATE CREATED AUTHOR AUTHOR'S ORGANIZ ATION 02/26/2024 [facility] DATE CREATED AUTHOR AUTHOR'S ORGANIZ ATION 07/18/2024 [facility] DATE CREATED AUTHOR AUTHOR'S ORGANIZ ATION 12/08/2024 [facility] DATE CREATED AUTHOR AUTHOR'S ORGANIZ ATION 12/09/2024 [facility] DATE CREATED AUTHOR AUTHOR'S ORGANIZ ATION 02/05/2025 [facility] DATE CREATED AUTHOR AUTHOR'S ORGANIZ ATION 02/10/2025 [facility] EPIC Patient Care team informatio n (unrecognized section and content) Team MemberRelationshipSpecialtyStart DateEnd Date Awais Guillory MD [address] [place] [address] PCP - GeneralFamily Vqsrvgls51/11/23Team MemberRelationshipSpecialtyStart Date End Date Awais Guillory MD [address] [place] [address] PCP - GeneralFamily Koeesahy50/11/23Team MemberRelationshipSpecialtyStart Date End Date Awais Guillory MD PCP - GeneralFamily Pqijvbbd35/11/23Team MemberRelationshipSpecialtyStart Date End Date Awais Guillory MD PCP - GeneralFamily Jknrfgfj33/11/23Team MemberRelationshipSpecialtyStart Date End Date Awais Guillory MD [address] [place] [address] PCP - GeneralFamily Cizbmjdt02/11/23am MemberRelationshipSpecialtyStart Date End Date Awais Guillory MD [address] [place] [address] PCP - GeneralFamily Wysmcebd89/11/23Team MemberRelationshipSpecialtyStart Date End Date Awais Guillory MD [address] [place] [address] PCP - GeneralFamily Gylwdhux22/11/23Team MemberRelationshipSpecialtyStart Date End Date Awais Guillory MD [address] [place] [address] PCP - GeneralFamily Difvcljk96/11/23Team MemberRelationshipSpecialtyStart Date End Date Awais Guillory MD [address] [place] [address] PCP - GeneralFamily Qxuhkigz28/11/23Team MemberRelationshipSpecialtyStart Date End Date Awais Guillory MD [address] [place] [address] [facility] - [facility] Ertlwdue64/11/23 FOR RECORDS PERTAINING TO PATIENTS WHO ARE [...] BE BASED ON THE PRIMARY CLINICAL RECORDS. [facility] [employer] [facility]. provides no warranty or guarantee of the accuracy or completeness of information in this document.
[2025-02-12 10:31] LABS: Anion Gap 13.6; Blood Urea Nitrogen 22.0 mg/dL (7.0-18.0); Calcium 9.7 mg/dL (8.5-10.1); Carbon Dioxide 30.7 mmol/L (21.0-32.0); Chloride 102 mmol/L (98-107); Estimated GFR (African America >60 (>=60 mL/min/1.73m^2); Estimated GFR (Non-African Ame >60 (>=60 mL/min/1.73m^2); Glucose 82 mg/dL (74-106); Potassium 4.3 mmol/L (3.5-5.1); Sodium 142 mmol/L (136-145)
== END 2025-02-12 09:39 | disposition home or self-care (01) ==
LOC: LAB 09:39
PROVIDERS: PCP Nurse Practitioner; Visit Provider Internal Medicine Interventional Cardiology
DX: I50.41 Acute combined systolic (congestive) and diastolic (congestive) heart failure (principal)
CPT/HCPCS: 36415; 80048